=== PATIENT | female | born 1940 | race Caucasian/White ===

== ENCOUNTER 2016-12-22 01:34 | Inpatient (IN) | payer OTHER, BC ==
[~2016-12-22] VITALS: Ht 149.9 cm; Wt 48.5 kg
[2016-12-22] VITALS (16 sets, daily range): BP systolic 139–179; BP diastolic 61–79; PULSE 60–74; TEMP 36.5–36.9; O2SAT 95–99; Ht 149.9 cm; Wt 48.5 kg
--- NOTE | 2016-12-22 02:02 | EMERGENCY ROOM VISIT NOTE ---
History Report prepared by Onel: Shady Hidalgo Under the Supervision of: Sylvia CarmichaelO. First contact with patient: 01:51 Chief Complaint: OTHER COMPLAINT Stated Complaint: LOW HEMOGLOBAN History of Present Illness The patient is a 76 year old female who presents to the Emergency Room with complaints of a low hemoglobin level. The patient has a history of a liver transplant that happened 10 years ago. 1 week ago, she received follow up blood work from a past hospital stay that was 2-3 weeks ago. This hospital stay was for a hemoglobin level of 5.1. She was released with a level of 8.9. The results just came back today from her blood work last week and showed that her level was 6.1 1 week ago. She is currently short of breath, has tightness in her chest, and is lethargic. She denies any fevers. Source of History: patient Onset: 1 week ago Position: other (Abnormal Labs) Symptom Intensity: 6.1 Quality: other (Hemoglobin Level) Timing: other (1 week ago) Associated Symptoms: + chest pain (tightness), + SOB, No fevers Note: She is lethargic. Review of Systems See HPI for pertinent positives and negatives. A total of ten systems were reviewed and were otherwise negative. Past Medical & Surgical Medical Problems: (1) Anemia (2) HLD (hyperlipidemia) (3) HTN (hypertension) (4) Osteoporosis Surgical Problems: (1) Liver transplant failure (2) Liver transplant status Family History Omitted secondary to the patient's age. Social History Smoking Status: Never Smoker Smokeless Tobacco Use: No Alcohol Use: none Drug Use: none Marital Status: single Housing Status: lives alone Occupation Status: retired Current/Historical Medications Scheduled Amlodipine (Norvasc), 10 MG PO DAILY Atorvastatin (Lipitor), 20 MG PO HS Cholecalciferol (Vitamin D3), 2,000 UNITS PO DAILY Everolimus (Immunosuppressant) (Zortress), 1 MG PO BID Ferrous Sulfate (Kp Ferrous Sulfate), 325 MG PO DAILY Metoprolol Tartrate (Lopressor) (Lopressor), 12.5 MG PO BID Oyster Shell (Calcium), 500 MG PO BID Sodium Bicarbonate (Sodium Bicarbonate), 1,300 MG PO TID Allergies Coded Allergies: No Known Allergies (Unverified , 12/22/16) Physical Exam Vital Signs Date Time Temp Pulse Resp B/P (MAP) Pulse Ox O2 Delivery O2 Flow Rate FiO2 12/22/16 02:30 72 12/22/16 02:01 99 Room Air 12/22/16 02:01 Room Air 12/22/16 01:43 36.7 76 18 179/79 99 Room Air Physical Exam GENERAL: Awake, alert, cachectic, in no distress HENT: Normocephalic, atraumatic. Oropharynx unremarkable. EYES: Normal conjunctiva. Sclera non-icteric. NECK: Supple. No nuchal rigidity. FROM. No JVD. RESPIRATORY: Clear to auscultation. CARDIAC: Regular rate, normal rhythm. Extremities warm and well perfused. Pulses equal. ABDOMEN: Soft, non-distended. No tenderness to palpation. No rebound or guarding. No masses. RECTAL: Deferred. MUSCULOSKELETAL: Chest examination reveals no tenderness. The back is symmetrical on inspection without obvious abnormality. There is no CVA tenderness to palpation. No joint edema. LOWER EXTREMITIES: Calves are equal size bilaterally and non-tender. No edema. No discoloration. NEURO: Normal sensorium. No sensory or motor deficits noted. SKIN: No rash or jaundice noted. Medical Decision & Procedures ER Provider Diagnostic Interpretation: Radiology results as stated below per my review: 1 VIEW CHEST X-RAY: Negative for infiltrate, normal mediastinum, no pneumothorax. Per me Laboratory Results 12/22/16 01:58 Red Blood Count 2.26, Mean Corpuscular Volume 85.8, Mean Corpuscular Hemoglobin 28.3, Mean Corpuscular Hemoglobin Concent 33.0, Mean Platelet Volume 10.2, Neutrophils (%) (Auto) 43.1, Lymphocytes (%) (Auto) 42.1, Monocytes (%) (Auto) 7.7, Eosinophils (%) (Auto) 6.2, Basophils (%) (Auto) 0.7, Neutrophils # (Auto) 2.42, Lymphocytes # (Auto) 2.36, Monocytes # (Auto) 0.43, Eosinophils # (Auto) 0.35, Basophils # (Auto) 0.04 12/22/16 01:58 Test 12/22/16 01:58 White Blood Count 5.61 K/uL (4.8-10.8) Red Blood Count 2.26 M/uL (4.2-5.4) Hemoglobin 6.4 g/dL (12.0-16.0) Hematocrit 19.4 % (37-47) Mean Corpuscular Volume 85.8 fL (80-100) Mean Corpuscular Hemoglobin 28.3 pg (25-34) Mean Corpuscular Hemoglobin Concent 33.0 g/dl (32-36) Platelet Count 124 K/uL (130-400) Mean Platelet Volume 10.2 fL (7.4-10.4) Neutrophils (%) (Auto) 43.1 % Lymphocytes (%) (Auto) 42.1 % Monocytes (%) (Auto) 7.7 % Eosinophils (%) (Auto) 6.2 % Basophils (%) (Auto) 0.7 % Neutrophils # (Auto) 2.42 K/uL (1.4-6.5) Lymphocytes # (Auto) 2.36 K/uL (1.2-3.4) Monocytes # (Auto) 0.43 K/uL (0.11-0.59) Eosinophils # (Auto) 0.35 K/uL (0-0.5) Basophils # (Auto) 0.04 K/uL (0-0.2) RDW Standard Deviation 49.2 fL (36.4-46.3) RDW Coefficient of Variation 15.7 % (11.5-14.5) Immature Granulocyte % (Auto) 0.2 % Immature Granulocyte # (Auto) 0.01 K/uL (0.00-0.02) Large Platelets 1+ Ovalocytes 1+ Anion Gap 8.0 mmol/L (3-11) Est Creatinine Clear Calc Drug Dose 8.2 ml/min Estimated GFR () 11.7 Estimated GFR (Non- 10.1 BUN/Creatinine Ratio 17.0 (10-20) Calcium Level 8.8 mg/dl (8.5-10.1) Total Bilirubin 0.6 mg/dl (0.2-1) Direct Bilirubin 0.2 mg/dl (0-0.2) Aspartate Amino Transf (AST/SGOT) 61 U/L (15-37) Alanine Aminotransferase (ALT/SGPT) 57 U/L (12-78) Alkaline Phosphatase 328 U/L (45-117) Total Protein 8.8 gm/dl (6.4-8.2) Albumin 3.3 gm/dl (3.4-5.0) Laboratory results reviewed by me ECG Indication: SOB/dyspnea Rate (beats per minute): 71 Rhythm: normal sinus Findings: no acute ischemic change, other (normal intervals, normal axis) ED Course 0151: The patient was evaluated in room A10. A complete history and physical exam was performed. 0244: Upon reexamination, the patient was resting. I discussed the test results and treatment plan with her. I discussed the case with Dr. Matre of the [facility] Hospitalist service. The patient will be evaluated by him for further management. Medical Decision Differential diagnoses include anemia, renal insufficiency, liver failure, and GI bleed. Patient found to have a hemoglobin less than 7, and renal insufficiency. The case was discussed with the hospitalist for admission. Patient will be admitted for blood transfusion. I have ordered 2 units of blood to be transfused. Medication Reconcilliation Current Medication List: was personally reviewed by me Blood Pressure Screening Patient's blood pressure: Elevated blood pressure Blood pressure disposition: Referred to PCP (Will be monitored as an inpatient) Consults Time Called: 0240 Consulting Physician: Dr. Marte - [facility] Returned Call: [phone] Discussed the patient's case. The patient will be evaluated for further treatment and disposition. Impression Primary Impression: Anemia Additional Impression: Renal insufficiency Scribe Attestation The scribe's documentation has been prepared under my direction and personally reviewed by me in its entirety. I confirm that the note above accurately reflects all work, treatment, procedures, and medical decision making performed by me. Departure Information Dispostion Being Evaluated By Hospitalist Referrals No Doctor, Assigned (PCP) Patient Instructions [facility] Problem Qualifiers
[2016-12-22 02:19] LABS: HEMATOCRIT 19.4 % (37-47); MEAN CELL VOLUME 85.8 fL (80-100); MEAN CORPUSCULAR HEMOGLOBIN 28.3 pg (25-34); MEAN PLATELET VOLUME 10.2 fL (7.4-10.4); PLATELET COUNT 124 K/uL (130-400); RED BLOOD COUNT 2.26 M/uL (4.2-5.4); WHITE BLOOD COUNT 5.61 K/uL (4.8-10.8)
[2016-12-22 02:27] LABS: CALCIUM 8.8 mg/dl (8.5-10.1); CREATININE 4.1 mg/dl (0.60-1.20); POTASSIUM 4.7 mmol/L (3.5-5.1)
[2016-12-22 02:34] LABS: BASO % 0.7 %; BASO ABS # 0.04 K/uL (0-0.2); COMPLETE YES; EOS % 6.2 %; IG% 0.2 %; LARGE PLATELETS 1+; LYMPH % 42.1 %; LYMPH ABS # 2.36 K/uL (1.2-3.4); MONO % 7.7 %; NEUT % 43.1 %; OVALOCYTES 1+
[2016-12-22] MEDS ORDERED: AMLO-114 PO (02:42)
[2016-12-22] MEDS ORDERED: ATOR-54 PO (02:43)
[2016-12-22] MEDS ORDERED: OYST500T47 PO (02:44)
[2016-12-22] MEDS ORDERED: EVER0.25 PO (02:45)
[2016-12-22] MEDS ORDERED: FERR1TAB13 PO (02:48)
[2016-12-22] MEDS ORDERED: SODI650T8 PO (02:49)
[2016-12-22] MEDS ORDERED: CHOL2000 PO (02:52)
[2016-12-22] MEDS ORDERED: METO25TA56 PO (02:53)
[2016-12-22] MEDS ORDERED: ACETAMINOPHEN 325 MG TAB PO PRN (04:45)
[2016-12-22] MEDS ORDERED: CLONIDINE HCL 0.1 MG TAB PO PRN (04:45)
--- NOTE | 2016-12-22 05:44 | History and Physical ---
History & Physical Date & Time of Service: Dec 22, 2016 at 05:23 Chief Complaint: Anemia Primary Care Physician: No Doctor, Assigned History of Present Illness Source: patient, clinic records, hospital records 76 year old female visiting from [place], with history of Liver Transplant on Chronic Immunosuppression, CKD 4, Anemia, HTN, presenting with low hemoglobin. Patient resides in [place] and follows with [facility] for s/p Liver Transplant, CKD 4, and Anemia. She apparently was started on pRBC transfusion since October 2016 and her last one was last month. She had blood work done last week and was called today that her Hg is only 6.1. Patient was advised to go to the ER. She reports few days history of dyspnea, dizziness, and occasional left sided chest "tightness" which all happens at night. Reports black stools but also on FeSO4 supplement but denies hematochezia or any other signs of bleeding. At the ER, patient's hemoglobin was 6.4, and crea 4.1. EKG showed sinus rhythm, with non specific T wave changes in the inferior leads. Cardiac markers pending. On exam, patient seen resting in bed, comfortable, daughter in law Rosita at bedside. Denies active dyspnea, chest pain, dizziness, nausea, bleeding or other symptoms as I am examining her. Occasionally, patient reports food getting "stuck" on her throat with solids Past Medical/Surgical History Medical Problems: (1) Anemia Status: Chronic (2) HLD (hyperlipidemia) Status: Chronic (3) HTN (hypertension) Status: Chronic (4) Osteoporosis Status: Chronic Surgical Problems: (1) Liver transplant failure Status: Resolved (2) Liver transplant status Status: Chronic Social History Smoking Status: Never Smoker Smokeless Tobacco Use: No Drug Use: none Marital Status: single Occupational Status: retired Allergies Coded Allergies: No Known Allergies (Unverified , 12/22/16) Home Medications Scheduled Amlodipine (Norvasc), 10 MG PO DAILY Atorvastatin (Lipitor), 20 MG PO HS Cholecalciferol (Vitamin D3), 2,000 UNITS PO DAILY Everolimus (Immunosuppressant) (Zortress), 1 MG PO BID Ferrous Sulfate (Kp Ferrous Sulfate), 325 MG PO DAILY Metoprolol Tartrate (Lopressor) (Lopressor), 12.5 MG PO BID Oyster Shell (Calcium), 500 MG PO BID Sodium Bicarbonate (Sodium Bicarbonate), 1,300 MG PO TID Review of Systems Constitutional- no fever; no weight loss Eyes- no acute visual changes ENT- no sinus drainage; no pharyngitis Pulmonary- (+) as noted above Cardiac- (+) as noted above GI- no nausea, no vomiting, no diarrhea, no melena, no hematochezia - no dysuria, no hematuria Musculoskeletal- no arthralgias, no myalgias Derm- no rashes, no new skin lesions, no changing skin lesions Hematologic- no unusual bruising, no unusual bleeding Lymphatics- no adenopathy Endocrine- no polyuria or polydipsia; no heat or cold intolerance Neuro- no headaches, no focal neurologic symptoms Psych- no anxiety, no depression Physical Exam Vital Signs Date Time Temp Pulse Resp B/P (MAP) Pulse Ox O2 Delivery O2 Flow Rate FiO2 12/22/16 05:05 36.7 67 16 175/70 95 12/22/16 03:46 74 16 168/76 98 Room Air 12/22/16 02:30 72 12/22/16 02:01 99 Room Air 12/22/16 02:01 Room Air 12/22/16 01:43 36.7 76 18 179/79 99 Room Air General Appearance: WD/WN, no apparent distress Head: normocephalic, atraumatic Eyes: PERRL, EOMI, sclerae normal, + pertinent finding (pale conjunctiva) ENT: normal ENT inspection, hearing grossly normal, pharynx normal Neck: supple, no adenopathy, thyroid normal, no JVD, trachea midline Respiratory/Chest: chest non-tender, lungs clear, normal breath sounds, no respiratory distress, no accessory muscle use Cardiovascular: regular rate, rhythm, no edema, no JVD, no murmur, normal peripheral pulses Abdomen/GI: normal bowel sounds, non tender, soft, no organomegaly, + pertinent finding (surgical scar in the upper quadrants) Back: normal inspection, no CVA tenderness Extremities/Musculoskelatal: normal inspection, no calf tenderness, no pedal edema, normal range of motion, non-tender 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, no motor/sensory deficits, alert, normal mood/affect, oriented x 3 Skin: normal color, warm/dry, no rash Lymphatic: no adenopathy Diagnostics Laboratory Results Results Past 24 Hours Test 12/22/16 01:58 12/22/16 04:39 12/22/16 05:04 Range/Units White Blood Count 5.61 4.8-10.8 K/uL Red Blood Count 2.26 4.2-5.4 M/uL Hemoglobin 6.4 12.0-16.0 g/dL Hematocrit 19.4 37-47 % Mean Corpuscular Volume 85.8 80-100 fL Mean Corpuscular Hemoglobin 28.3 25-34 pg Mean Corpuscular Hemoglobin Concent 33.0 32-36 g/dl Platelet Count 124 130-400 K/uL Mean Platelet Volume 10.2 7.4-10.4 fL Neutrophils (%) (Auto) 43.1 % Lymphocytes (%) (Auto) 42.1 % Monocytes (%) (Auto) 7.7 % Eosinophils (%) (Auto) 6.2 % Basophils (%) (Auto) 0.7 % Neutrophils # (Auto) 2.42 1.4-6.5 K/uL Lymphocytes # (Auto) 2.36 1.2-3.4 K/uL Monocytes # (Auto) 0.43 0.11-0.59 K/uL Eosinophils # (Auto) 0.35 0-0.5 K/uL Basophils # (Auto) 0.04 0-0.2 K/uL RDW Standard Deviation 49.2 36.4-46.3 fL RDW Coefficient of Variation 15.7 11.5-14.5 % Immature Granulocyte % (Auto) 0.2 % Immature Granulocyte # (Auto) 0.01 0.00-0.02 K/uL Large Platelets 1+ Ovalocytes 1+ Sodium Level 140 136-145 mmol/L Potassium Level 4.7 3.5-5.1 mmol/L Chloride Level 111 98-107 mmol/L Carbon Dioxide Level 21 21-32 mmol/L Anion Gap 8.0 3-11 mmol/L Blood Urea Nitrogen 70 7-18 mg/dl Creatinine 4.10 0.60-1.20 mg/dl Est Creatinine Clear Calc Drug Dose 8.2 ml/min Estimated GFR () 11.7 Estimated GFR (Non- 10.1 BUN/Creatinine Ratio 17.0 10-20 Random Glucose 98 70-99 mg/dl Calcium Level 8.8 8.5-10.1 mg/dl Total Bilirubin 0.6 0.2-1 mg/dl Direct Bilirubin 0.2 0-0.2 mg/dl Aspartate Amino Transf (AST/SGOT) 61 15-37 U/L Alanine Aminotransferase (ALT/SGPT) 57 12-78 U/L Alkaline Phosphatase 328 45-117 U/L Total Protein 8.8 6.4-8.2 gm/dl Albumin 3.3 3.4-5.0 gm/dl Creatine Kinase MB Ratio 0-3.0 Diagnostic Radiology CXR possible small right sided effusion, no infiltrates; official read pending EKG HR 71, sinus rhythm, non specific t wave changes lead II Impression Assessment and Plan 76 year old female visiting from [place], with history of Liver Transplant on Chronic Immunosuppression, CKD 4, Anemia, HTN, presenting with low hemoglobin. ANEMIA likely from CKD 4-5, Iron Deficiency - has been requiring intermittent pRBC transfusion since October 2016 - reports melena but on Aspirin - labs drawn 10/2016 ( upon review of records patient brought in) Hg 7.9 crea 3.00, GFR 17 Iron 38, Ferritin 967 - will order 2 units Irradiated pRBC (due to liver transplant status) repeat Hg pending at 8am Anemia panel ordered, including FOBT - Nephrology consulted HYPERTENSION - continue Metoprolol, Amlodipine PRN Clonidine CHEST PAIN - likely from Symptomatic Anemia - r/o ACS - check cardiac markers echo - hold off Aspirin until GI bleed ruled out ACUTE RENAL FAILURE ON CKD 4 - labs drawn 10/2016 ( upon review of records patient brought in) crea 3.00, GFR 17 - now crea 4.1 denies oliguria,nausea, abdominal pain - will consult Nephro S/P LIVER TRANSPLANT 2005, 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 Vee Degroot for PCP and [facility] for s/p Liver Transplant VTE Prophylaxis VTE Risk Assessment Done? Y/N: Yes Risk Level: Moderate Given or contraindicated: SCD's
[2016-12-22 05:51] LABS: CKMB/CK RATIO 1.2 (0-3.0)
[2016-12-22] MEDS ORDERED: FUROSEMIDE INJ 20 MG in SYRINGE 0 ML IV SCH (06:00)
--- NOTE | 2016-12-22 07:24 | DIAGNOSTIC IMAGING REPORT ---
CHEST ONE VIEW PORTABLE CLINICAL HISTORY: Shortness of breath. COMPARISON STUDY: No previous studies for comparison. FINDINGS: There is slight elevation of the right hemidiaphragm. There may be trace bilateral pleural effusions. There is no evidence of pulmonary edema. Mild cardiomegaly is noted. There is no consolidation to suggest pneumonia. IMPRESSION: 1. No evidence of pulmonary edema. 2. Possible trace bilateral pleural effusions. 3. Mild cardiomegaly. Electronically signed by: Milton Calloway M.D. 12/22/2016 7:23 AM Dictated Date/Time: 12/22/2016 7:22 AM
[2016-12-22] MEDS: CALCIUM CARBONATE 1250MG TAB PO SCH ×2 (07:30→22:03)
[2016-12-22] MEDS: AMLODIPINE BESYLATE 5 MG TAB PO SCH (07:30)
[2016-12-22] MEDS: METOPROLOL TARTRATE 25 MG TAB PO SCH ×2 (07:30→20:26)
[2016-12-22] MEDS: SODIUM BICARBONATE 650 MG TAB PO SCH ×3 (07:30→20:29)
[2016-12-22] MEDS: FERROUS SULFATE 325 MG TAB PO SCH (07:30)
[2016-12-22] MEDS: CHOLECALCIFEROL 1000 INTER.UNIT TAB PO SCH (07:31)
[2016-12-22 15:35] LABS: HEMATOCRIT 27.1 % (37-47)
[2016-12-22 16:02] LABS: BLOOD UREA NITROGEN 68 mg/dl (7-18); CALCIUM 8.7 mg/dl (8.5-10.1); CARBON DIOXIDE 21 mmol/L (21-32); CHLORIDE 112 mmol/L (98-107); GLUCOSE 92 mg/dl (70-99); POTASSIUM 4.6 mmol/L (3.5-5.1); SODIUM 141 mmol/L (136-145)
[2016-12-22 16:07] LABS: CKMB/CK RATIO 0.9 (0-3.0); FERRITIN 1716.2 ng/ml (8.0-388.0); TOTAL IRON BINDING CAPACITY 202 mcg/dl (250-450)
--- NOTE | 2016-12-22 17:42 | Progress Note ---
Progress Note Date of Service Dec 22, 2016. Progress Note 76 yo F s/p liver transplant , CKD stage 4 , anemia of chronic disease , presented with symptomatic anemia ~ h b 6.4 associated with WELSH /dizzy spell , palpitation possible anemia of chronic disease due to advanced CKD given 2 units of PRBC hb improved to 9.1 pt feels much better , no WELSH or dizzy spell on standing up or walking repeat labs in AM appreciate input from nephrology
--- NOTE | 2016-12-22 20:01 | NEPHROLOGY CONSULTATION ---
DATE OF CONSULTATION: 12/22/2016 ATTENDING OF RECORD: Dr. Marte. REASON FOR CONSULTATION: DEVEN. HISTORY OF PRESENT ILLNESS: This is a 76-year-old female visiting from [place], [place], who has a history of liver transplant x2 from autoimmune hepatitis, on chronic immunosuppression as well as CKD stage IV. The patient states that she was evaluated by a evening anchor in the past for her anemia and was subsequently referred to hematology for further evaluation. The patient did have a blood transfusion in October of this year. The patient has been getting blood work monthly for [facility] transplant and has been feeling weak, decreased appetite, 5-pound weight loss and was called to go in to the nearest hospital since her hemoglobin level was down to 6.1. The patient's creatinine was 4.1. In the Emergency Room, the patient was given 2 units of leukopoor-irradiated blood. Random urine sodium was 62. Iron sat was 40%. Troponin negative. B12 levels were good. Creatinine is 4.1, on admission it was for 4, later this afternoon after 2 units of blood. The patient is comfortable, eating dinner. No overt signs of edema or shortness of breath. The patient currently on sodium bicarbonate tablets 1300 mg 3 times a day, on oral iron daily. PAST MEDICAL HISTORY: 1. Liver transplant x2, the first one failed followed by [facility] . 2. CKD stage IV. 3. Hyperlipidemia. 4. Hypertension. 5. Osteoporosis. PAST SURGICAL HISTORY: Liver transplant. FAMILY HISTORY: no renal disease in family SOCIAL HISTORY: No smoking, no alcohol, no drugs. Lives alone in [place]. HOME MEDICATIONS: Significant for Norvasc 10 mg a day, Lipitor 20 mg at night, vitamin D 2000 units daily, everolimus 1 mg p.o. b.i.d., Lopressor 12.5 b.i.d., sodium bicarbonate 1300 three times a day. CURRENT MEDICATIONS: Lipitor 20 mg at night, Norvasc 10 mg daily, Lopressor 12.5 p.o. b.i.d., Os-Servando 1250 p.o. b.i.d., sodium bicarbonate 1300 3 times a day, vitamin D 2000 units daily, iron 325 daily. REVIEW OF SYSTEMS: Positive 5-pound weight loss. Positive fatigue. No fevers or chills. No headaches, no shortness of breath, no chest pain. No nausea or vomiting. Positive anorexia. No taste to foods. No unusual bruising. Urination has been noticed to be decreased. All other review of systems otherwise negative. PHYSICAL EXAMINATION: VITAL SIGNS: Temperature 36.8, pulse 68, respiratory rate 16, blood pressure 154/69, satting 99% on room air. GENERAL: Awake, alert, oriented x3. EYES: No scleral icterus. HEENT: Mucous membranes are moist. NECK: Supple. PULMONARY: Clear to auscultation. CARDIAC: Regular rate and rhythm. ABDOMEN: Bowel sounds positive, soft, nontender, nondistended. EXTREMITIES: No clubbing, cyanosis or edema. NEUROLOGICALLY: Nonfocal. DERMATOLOGIC: No rash or ulcers noted. LABORATORIES: White count is 5. H&H 9.1 and 27.1, platelet count is 124. Random urine sodium was 62. Sodium is 141, potassium 4.6, chloride is 112, bicarbonate is 21, BUN is 68, creatinine is 4, and random glucose 92. Uric acid 7.3, iron sat 40%. Troponin negative. B12 1462. Albumin is 3.3. IMAGING DATA: Chest x-ray shows no evidence of pulmonary edema, possible trace bilateral pleural effusions, mild cardiomegaly. Creatinine from October of 2016 was 3. IMPRESSION AND PLAN: 1. Acute kidney injury on chronic kidney disease stage IV with a creatinine of 4.1 with a previous creatinine from October. Will contact [facility] on Sunday for more labs to follow trend. This could be a natural progression of chronic kidney disease and becoming close to needing to start dialysis or this could be acute tubular necrosis like episode with a creatinine that has temporarily worsened in the setting of significant anemia. For now, no indication for emergent dialysis. We will see if the creatinine is starting to improve tomorrow. Would hold on IV fluids at this time. 2. Anemia, question etiology. The patient appears to have anemia from chronic kidney disease, given the iron sats are good with no signs of active bleeding. Could benefit from Procrit administration to keep the hemoglobin levels stable. Will follow labs as an outpatient and if indeed does require Procrit, will get set up as an outpatient. No prior history of cancers. 3. Hypertension. Blood pressure is good and currently on metoprolol 12.5 mg p.o. b.i.d. and Norvasc 10 mg a day. 4. Acidosis. Bicarb levels are good at 21 and on sodium bicarbonate tablets 1300 mg 3 times a day. The patient likely with significant chronic kidney disease from immunosuppression, since patient is already on sodium bicarbonate tablets, probably suffers from significant chronic kidney disease, question though what her true baseline kidney function is and is this acute kidney injury or natural progression of chronic kidney disease. We will try to obtain further lab work on Sunday. If the patient's hemoglobin levels are stable tomorrow, okay from a renal perspective to go home tomorrow with close follow up with me as an outpatient, and I will try to obtain further records. I appreciate the consultation. NOELLE
[2016-12-22] MEDS: EVEROLIMUS 0.5 MG PO SCH (20:24)
[2016-12-22] MEDS ORDERED: ATORVASTATIN 20 MG TAB PO SCH (21:00)
--- NOTE | 2016-12-22 21:32 | DIAGNOSTIC IMAGING REPORT ---
(RENAL)RETROPERITONEA COMP HISTORY: Renal insufficiency Rosa on ck. stage 4 ; R/o obstruction COMPARISON: None. FINDINGS: Right kidney: Maximum dimension 9.5 cm. No evidence for hydronephrosis. Increased cortical echogenicity Left kidney: Maximum dimension 9.8 cm. No evidence for hydronephrosis. Increased cortical echogenicity Bladder: No bladder wall thickening. The bilateral ureteral jets were identified. IMPRESSION: Findings consistent with nonobstructive renal insufficiency. No evidence for hydronephrosis. The above report was generated using voice recognition software. It may contain grammatical, syntax or spelling errors. Electronically signed by: Zachery Vazquez M.D. 12/22/2016 9:31 PM Dictated Date/Time: 12/22/2016 9:29 PM
[2016-12-23 04:05] VITALS: BP 120/64; PULSE 67; TEMP 37; O2SAT 94
[2016-12-23 06:11] LABS: BUN/CREATININE RATIO 17.3 (10-20); CALCIUM 8.3 mg/dl (8.5-10.1); CREATININE 4.1 mg/dl (0.60-1.20); POTASSIUM 4.3 mmol/L (3.5-5.1)
[2016-12-23 06:47] LABS: BASO % 0.7 %; BASO ABS # 0.03 K/uL (0-0.2); EOS % 7.7 %; HEMATOCRIT 26.8 % (37-47); IG% 0.2 %; LYMPH % 42.2 %; LYMPH ABS # 1.86 K/uL (1.2-3.4); MEAN CORPUSCULAR HEMOGLOBIN 27.2 pg (25-34); MEAN PLATELET VOLUME 10.9 fL (7.4-10.4); MONO % 8.6 %; NEUT % 40.6 %; PLATELET COUNT 103 K/uL (130-400); RED BLOOD COUNT 3.27 M/uL (4.2-5.4); WHITE BLOOD COUNT 4.41 K/uL (4.8-10.8)
[2016-12-23 07:15] LABS: MEAN CORPUSCULAR HGB CONC 33.2 g/dl (32-36)
[2016-12-23 07:57] LABS: COMPLETE YES
[2016-12-23 08:01] VITALS: BP 151/65; PULSE 60; TEMP 36.6; O2SAT 96
[2016-12-23] MEDS: EVEROLIMUS 0.5 MG PO SCH (09:00)
[2016-12-23] MEDS: METOPROLOL TARTRATE 25 MG TAB PO SCH (10:30)
[2016-12-23] MEDS: CHOLECALCIFEROL 1000 INTER.UNIT TAB PO SCH (10:31)
[2016-12-23] MEDS: SODIUM BICARBONATE 650 MG TAB PO SCH ×2 (10:31→12:36)
--- NOTE | 2016-12-23 10:33 | Discharge Instructions ---
Discharge Instructions Date of Service Dec 23, 2016. Admission Reason for Admission: Anemia Discharge Discharge Diagnosis / Problem: ANEMIA OF CHRONIC DISEASE /CKD STAGE 4 Discharge Goals Goal(s): Decrease discomfort, Improve disease control, Diagnostic testing Activity Recommendations Activity Limitations: resume your previous activity . Instructions / Follow-Up Instructions / Follow-Up FOLLOW UP WITH NEPHROLOGY DR CHRISTENSEN NEXT WEEK , OFFICE WILL CALL WITH APPOINTMENT Current Hospital Diet Patient's current hospital diet: Renal Diet, AHA Diet (Heart Healthy) Discharge Diet Recommended Diet: AHA Diet (Heart Healthy), Renal Diet Pending Studies Studies pending at discharge: yes List of pending studies: COMPLETE BLOOD COUNT , BASIC METABOLIC PANEL ON NEXT OFFICE VISIT WITH DR CHRISTENSEN Medical Emergencies . Who to Call and When: Medical Emergencies: If at any time you feel your situation is an emergency, please call 911 immediately. . Non-Emergent Contact Non-Emergency issues call your: Primary Care Provider . . "Provider Documentation" section prepared by Jina Espinoza. . VTE Core Measure Inpt VTE Proph given/why not?: SCD's
--- NOTE | 2016-12-23 10:35 | Nephrology Progress Note ---
Nephrology Progress Note Date of Service: Dec 23, 2016. Subjective 76 yo female with liver transplant x 2 from autoimmune hepatitis on everolimus and has recurrent anemia, s/p blood transfusion. pt not uremic. creatinine not improving and is 4. still though with element of decreased appetite. no n/v. no itching, no fatigue. urinating well. no sob. Objective Date Time Temp Pulse Resp B/P (MAP) Pulse Ox O2 Delivery O2 Flow Rate FiO2 12/23/16 08:01 36.6 60 17 151/65 (93) 96 Room Air 12/23/16 04:05 37.0 67 16 120/64 (82) 94 12/23/16 04:00 Room Air 12/23/16 00:01 Room Air 12/22/16 23:09 36.8 65 16 146/79 (101) 96 12/22/16 20:00 Room Air 12/22/16 19:28 36.8 66 18 168/71 (103) 95 Room Air 12/22/16 16:01 Room Air 12/22/16 15:24 36.8 68 16 154/69 (97) 99 Room Air 12/22/16 13:45 36.7 66 18 162/77 96 12/22/16 12:45 36.6 66 18 162/77 95 12/22/16 12:42 Room Air 12/22/16 12:15 36.8 63 18 155/72 96 12/22/16 11:45 36.8 60 18 148/61 12/22/16 11:30 36.7 62 18 145/71 12/22/16 11:15 36.6 68 18 139/61 96 Physical Exam: General-aaox3 Eyes-no scleral icterus ENT-mmm Neck-supple Lungs-cta Heart-rrr Abdomen-bs+ s/nt/nd Extremities-no c/c/e Neuro-nonfocal Current Inpatient Medications Medications (Trade) Dose Ordered Sig/Robert Route Start Time Stop Time Status Last Admin Dose Admin Clonidine HCl (Catapres Tab) 0.1 mg Q6H PRN PO 12/22/16 04:45 01/21/17 04:44 Acetaminophen (Tylenol Tab) 650 mg Q4H PRN PO 12/22/16 04:45 01/21/17 04:44 Amlodipine Besylate (Norvasc Tab) 10 mg DAILY PO 12/22/16 09:00 01/21/17 08:59 12/22/16 07:30 10 MG Atorvastatin Calcium (Lipitor Tab) 20 mg HS PO 12/22/16 21:00 01/21/17 20:59 12/22/16 22:03 20 MG Metoprolol Tartrate (Lopressor Tab) 12.5 mg BID PO 12/22/16 09:00 01/21/17 08:59 12/22/16 20:26 12.5 MG Calcium Carbonate (oS-Servando 500 TAB) 1,250 mg BID PO 12/22/16 09:00 01/21/17 08:59 12/22/16 22:03 1,250 MG Sodium Bicarbonate (Sodium Bicarbonate Tab) 1,300 mg TID PO 12/22/16 09:00 01/21/17 08:59 12/22/16 20:29 1,300 MG Cholecalciferol (Vitamin D Tab) 2,000 inter.unit DAILY PO 12/22/16 09:00 01/21/17 08:59 12/22/16 07:31 2,000 INTER.UNIT Ferrous Sulfate (Feosol Tab) 325 mg DAILY PO 12/22/16 09:00 01/21/17 08:59 12/22/16 07:30 325 MG Non-Formulary Medication (Non-Formulary Patient'S Own Med) 2 ea BID PO 12/22/16 21:00 01/21/17 20:59 12/22/16 20:24 2 EA Last 24 Hours Test 12/22/16 10:39 12/22/16 15:22 12/23/16 05:29 12/23/16 06:37 Creatine Kinase MB Ratio 0.9 Hemoglobin 9.1 g/dL 8.9 g/dL Hematocrit 27.1 % 26.8 % Sodium Level 141 mmol/L 140 mmol/L Potassium Level 4.6 mmol/L 4.3 mmol/L Chloride Level 112 mmol/L 113 mmol/L Carbon Dioxide Level 21 mmol/L 20 mmol/L Anion Gap 8.0 mmol/L 7.0 mmol/L Blood Urea Nitrogen 68 mg/dl 71 mg/dl Creatinine 4.00 mg/dl 4.10 mg/dl Est Creatinine Clear Calc Drug Dose 8.4 ml/min 8.2 ml/min Estimated GFR () 12.0 11.7 Estimated GFR (Non- 10.4 10.1 BUN/Creatinine Ratio 17.0 17.3 Random Glucose 92 mg/dl 80 mg/dl Uric Acid 7.3 mg/dl Calcium Level 8.7 mg/dl 8.3 mg/dl Iron Level 92 mcg/dl Total Iron Binding Capacity 202 mcg/dl Transferrin 166 mg/dl Transferrin % Saturation 40 % Ferritin 1716.2 ng/ml Total Creatine Kinase 182 U/L Creatine Kinase MB 1.7 ng/ml Troponin I < 0.015 ng/ml Vitamin B12 Level 1462 pg/mL Folate > 24.00 ng/mL White Blood Count 4.41 K/uL Red Blood Count 3.27 M/uL Mean Corpuscular Volume 82.0 fL Mean Corpuscular Hemoglobin 27.2 pg Mean Corpuscular Hemoglobin Concent 33.2 g/dl Platelet Count 103 K/uL Mean Platelet Volume 10.9 fL Neutrophils (%) (Auto) 40.6 % Lymphocytes (%) (Auto) 42.2 % Monocytes (%) (Auto) 8.6 % Eosinophils (%) (Auto) 7.7 % Basophils (%) (Auto) 0.7 % Neutrophils # (Auto) 1.79 K/uL Lymphocytes # (Auto) 1.86 K/uL Monocytes # (Auto) 0.38 K/uL Eosinophils # (Auto) 0.34 K/uL Basophils # (Auto) 0.03 K/uL RDW Standard Deviation 48.0 fL RDW Coefficient of Variation 15.9 % Immature Granulocyte % (Auto) 0.2 % Immature Granulocyte # (Auto) 0.01 K/uL Red Blood Cell Morphology Unremarkable Assessment & Plan CKD stage 5-creatinine appears to have progressed to 4 and not improving while in the hospital. was 3 in October. will contact her pcp office and transplant office on sunday to try to get more records. may be close to needing to start dialysis although at this time not uremic. Anemia-likely from anemia from renal failure and will recheck labs as outpt and start process for qualifying for procrit. will follow up in my office soon and have repeat lab work next week through my office.
[2016-12-23 11:58] VITALS: BP 152/67; PULSE 63; TEMP 36.5; O2SAT 97
[2016-12-23] MEDS: CALCIUM CARBONATE 1250MG TAB PO SCH (12:11)
--- NOTE | 2016-12-23 12:31 | Progress Note ---
Internal Med Progress Note Date of Service: Dec 23, 2016. Provider Documentation: SUBJECTIVE: no complain of lightheadedness , no dizzy spell energy is fair denies of SOB or WELSH OBJECTIVE: Vital Signs-as noted below Exam: General-frail appearing elderly lady , no apparent distress Eyes-sclera non icteric Neck-NAD Lungs-CTA ,no wheeze or rales Heart-regular S1/S2 Abdomen-soft, non tender Extremities-no lower ext edema, no rash or deformity Neuro-AAO x3, no focal deficit Lab data as noted below. ASSESSMENT & PLAN: 76 year old female visiting from [place], with history of Liver Transplant on Chronic Immunosuppression, CKD 4, Anemia, HTN, presented with symptomatic anemia ANEMIA likely from CKD 4-5, Iron Deficiency - has been requiring intermittent pRBC transfusion since October 2016 - labs drawn 10/2016 ( upon review of records patient brought in) Hg 7.9 crea 3.00, GFR 17 Iron 38, Ferritin 967 - s/p 2 units Irradiated pRBC (due to liver transplant status) Hb improved 9.1 ->remains stable 8.9 symptoms of SOB , WELSH has markedly improved post transfusion appreciate input form Nephrology pt is stable to be discharged will be seen at Dr Lau 's office early next, repeat Blood work next week per nephrology may benefit with Procrit , Nephrology office will arrange after follow up HYPERTENSION - continue Metoprolol, Amlodipine DYSPHAGIA - patient reports food getting "stuck" on her throat with solids - speech therapy eval appreciated no sign of overt aspiration or swallowing difficulty noted on bed side eval recommend dental cut -soft /slippery diet aspiration precaution CHEST PAIN - likely from Symptomatic Anemia symptom has resolved after correction of anemia with PRBC transfusion echo; shows no wall motion abnormality no further cardiac work up needed ACUTE RENAL FAILURE ON CKD 4-5 - labs drawn 10/2016 ( upon review of records patient brought in) crea 3.00, GFR 17 -Cr remains elevated ~4 appreciate input form Nephrology , out pt follow up in office will have repeat blood work checked S/P LIVER TRANSPLANT 2005, 2006 - for autoimmune hepatitis - follows with [facility] - on Zintress DVT PROPHYLAXIS SCDs FULL CODE PER PATIENT DISPOSITION stable to be discharge home today Update given to son present at bedside pt will be followed by Dr Lau in office next week per son eventually pt will transition her care to [place] Vital Signs: Date Time Temp Pulse Resp B/P (MAP) Pulse Ox O2 Delivery O2 Flow Rate FiO2 12/23/16 15:18 36.5 63 18 97 Room Air 12/23/16 12:00 Room Air 12/23/16 11:58 36.5 63 18 152/67 (95) 97 Room Air 12/23/16 08:30 Room Air 12/23/16 08:01 36.6 60 17 151/65 (93) 96 Room Air 12/23/16 04:05 37.0 67 16 120/64 (82) 94 12/23/16 04:00 Room Air 12/23/16 00:01 Room Air 12/22/16 23:09 36.8 65 16 146/79 (101) 96 12/22/16 20:00 Room Air 12/22/16 19:28 36.8 66 18 168/71 (103) 95 Room Air Lab Results: Results Past 24 Hours Test 12/23/16 05:29 12/23/16 06:37 Range/Units Sodium Level 140 136-145 mmol/L Potassium Level 4.3 3.5-5.1 mmol/L Chloride Level 113 98-107 mmol/L Carbon Dioxide Level 20 21-32 mmol/L Anion Gap 7.0 3-11 mmol/L Blood Urea Nitrogen 71 7-18 mg/dl Creatinine 4.10 0.60-1.20 mg/dl Est Creatinine Clear Calc Drug Dose 8.2 ml/min Estimated GFR () 11.7 Estimated GFR (Non- 10.1 BUN/Creatinine Ratio 17.3 10-20 Random Glucose 80 70-99 mg/dl Calcium Level 8.3 8.5-10.1 mg/dl White Blood Count 4.41 4.8-10.8 K/uL Red Blood Count 3.27 4.2-5.4 M/uL Hemoglobin 8.9 12.0-16.0 g/dL Hematocrit 26.8 37-47 % Mean Corpuscular Volume 82.0 80-100 fL Mean Corpuscular Hemoglobin 27.2 25-34 pg Mean Corpuscular Hemoglobin Concent 33.2 32-36 g/dl Platelet Count 103 130-400 K/uL Mean Platelet Volume 10.9 7.4-10.4 fL Neutrophils (%) (Auto) 40.6 % Lymphocytes (%) (Auto) 42.2 % Monocytes (%) (Auto) 8.6 % Eosinophils (%) (Auto) 7.7 % Basophils (%) (Auto) 0.7 % Neutrophils # (Auto) 1.79 1.4-6.5 K/uL Lymphocytes # (Auto) 1.86 1.2-3.4 K/uL Monocytes # (Auto) 0.38 0.11-0.59 K/uL Eosinophils # (Auto) 0.34 0-0.5 K/uL Basophils # (Auto) 0.03 0-0.2 K/uL RDW Standard Deviation 48.0 36.4-46.3 fL RDW Coefficient of Variation 15.9 11.5-14.5 % Immature Granulocyte % (Auto) 0.2 % Immature Granulocyte # (Auto) 0.01 0.00-0.02 K/uL Red Blood Cell Morphology Unremarkable
--- NOTE | 2016-12-23 12:32 | Discharge Summary ---
Discharge Summary Date of Service Dec 23, 2016. Discharge Summary Admission Date: Dec 22, 2016 at 03:49 Discharge Date: Dec 23, 2016 Discharge Disposition: Home Principal Diagnosis: ANEMIA OF CHRONIC DISEASE /CKD STAGE 4 Procedures: RENAL ULTRASOUND : IMPRESSION: Findings consistent with nonobstructive renal insufficiency. No evidence for hydronephrosis. CHEST XRAY : IMPRESSION: 1. No evidence of pulmonary edema. 2. Possible trace bilateral pleural effusions. 3. Mild cardiomegaly. ECHO : 1. Normal LV size. Mild concentric LVH. * 2. Normal LV systolic function. LVEF 55-60%. No regional wall motion abnormalities. Grade I diastolic dyfunction. * 3. Normal RV size and function. * 4. Mild mitral regurgitation. * 5. Normal estimated RA and PA pressures. * 6. No prior studies for comparison. Consultations: NEPHROLOGY DR LAU Medication Reconciliation Continued Medications: Amlodipine (Norvasc) 10 Mg Tab 10 MG PO DAILY, TAB Atorvastatin (Lipitor) 20 Mg Tab 20 MG PO HS, TAB Cholecalciferol (Vitamin D3) 2,000 Unit Cap 2000 UNITS PO DAILY, CAP Everolimus (Immunosuppressant) (Zortress) 0.25 Mg Tab 1 MG PO BID BEGIN 12/07/16 : TAKE 4 TABLETS (1 MG TOTAL) TWICE DAILY FOR 30 DAYS. Ferrous Sulfate (Kp Ferrous Sulfate) 325 Mg Tab 325 MG PO DAILY, TAB Metoprolol Tartrate (Lopressor) (Lopressor) 25 Mg Tab 12.5 MG PO BID, TAB Oyster Shell (Calcium) 500 Mg Tab 500 MG PO BID Sodium Bicarbonate (Sodium Bicarbonate) 650 Mg Tab 1300 MG PO TID TAKE 2 TABLETS THREE TIMES DAILY. Referrals At Discharge Follow up Referrals: Physician Referral - Please Call For Appointment with Kylee Lau I., DO Admission Information HPI (per Admitting provider): 76 year old female visiting from [place], with history of Liver Transplant on Chronic Immunosuppression, CKD 4, Anemia, HTN, presenting with low hemoglobin. Patient resides in [place] and follows with [facility] for s/p Liver Transplant, CKD 4, and Anemia. She apparently was started on pRBC transfusion since October 2016 and her last one was last month. She had blood work done last week and was called today that her Hg is only 6.1. Patient was advised to go to the ER. She reports few days history of dyspnea, dizziness, and occasional left sided chest "tightness" which all happens at night. Reports black stools but also on FeSO4 supplement but denies hematochezia or any other signs of bleeding. At the ER, patient's hemoglobin was 6.4, and crea 4.1. EKG showed sinus rhythm, with non specific T wave changes in the inferior leads. Cardiac markers pending. On exam, patient seen resting in bed, comfortable, daughter in law Rosita at bedside. Denies active dyspnea, chest pain, dizziness, nausea, bleeding or other symptoms as I am examining her. Occasionally, patient reports food getting "stuck" on her throat with solids Physical Exam (per Admitting): General Appearance: WD/WN, no apparent distress Head: normocephalic, atraumatic Eyes: PERRL, EOMI, sclerae normal, + pertinent finding (pale conjunctiva) ENT: normal ENT inspection, hearing grossly normal, pharynx normal Neck: supple, no adenopathy, thyroid normal, no JVD, trachea midline Respiratory/Chest: chest non-tender, lungs clear, normal breath sounds, no respiratory distress, no accessory muscle use Cardiovascular: regular rate, rhythm, no edema, no JVD, no murmur, normal peripheral pulses Abdomen/GI: normal bowel sounds, non tender, soft, no organomegaly, + pertinent finding (surgical scar in the upper quadrants) Back: normal inspection, no CVA tenderness Extremities/Musculoskelatal: normal inspection, no calf tenderness, no pedal edema, normal range of motion, non-tender Neurologic/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: 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, no motor/sensory deficits, alert , normal mood/affect, oriented x 3 Skin: normal color, warm/dry, no rash Lymphatic: no adenopathy Hospital Course 76 year old female visiting from [place], with history of Liver Transplant on Chronic Immunosuppression, CKD 4, Anemia, HTN, presented with symptomatic anemia ANEMIA likely from CKD 4-5, Iron Deficiency - has been requiring intermittent pRBC transfusion since October 2016 - labs drawn 10/2016 ( upon review of records patient brought in) Hg 7.9 crea 3.00, GFR 17 Iron 38, Ferritin 967 - s/p 2 units Irradiated pRBC (due to liver transplant status) Hb improved 9.1 ->remains stable 8.9 symptoms of SOB , WELSH has markedly improved post transfusion appreciate input form Nephrology pt is stable to be discharged will be seen at Dr Lau 's office early next, repeat Blood work next week per nephrology may benefit with Procrit , Nephrology office will arrange after follow up HYPERTENSION - continue Metoprolol, Amlodipine DYSPHAGIA - patient reports food getting "stuck" on her throat with solids - speech therapy eval appreciated no sign of overt aspiration or swallowing difficulty noted on bed side eval recommend dental cut -soft /slippery diet aspiration precaution CHEST PAIN - likely from Symptomatic Anemia symptom has resolved after correction of anemia with PRBC transfusion echo; shows no wall motion abnormality no further cardiac work up needed ACUTE RENAL FAILURE ON CKD 4-5 - labs drawn 10/2016 ( upon review of records patient brought in) crea 3.00, GFR 17 -Cr remains elevated ~4 appreciate input form Nephrology , out pt follow up in office will have repeat blood work checked S/P LIVER TRANSPLANT 2005, 2006 - for autoimmune hepatitis - follows with [facility] - on Zintress DVT PROPHYLAXIS SCDs FULL CODE PER PATIENT DISPOSITION stable to be discharge home today Update given to son present at bedside pt will be followed by Dr Lau in office next week per son eventually pt will transition her care to [place] Total time spent on discharge = 35 mins This includes examination of the patient, discharge planning, medication reconciliation, and communication with other providers. Discharge Instructions Discharge Instructions Date of Service Dec 23, 2016. Admission Reason for Admission: Anemia Discharge Discharge Diagnosis / Problem: ANEMIA OF CHRONIC DISEASE /CKD STAGE 4 Discharge Goals Goal(s): Decrease discomfort, Improve disease control, Diagnostic testing Activity Recommendations Activity Limitations: resume your previous activity . Instructions / Follow-Up Instructions / Follow-Up FOLLOW UP WITH NEPHROLOGY DR LAU NEXT WEEK , OFFICE WILL CALL WITH APPOINTMENT Current Hospital Diet Patient's current hospital diet: Renal Diet, AHA Diet (Heart Healthy) Discharge Diet Recommended Diet: AHA Diet (Heart Healthy), Renal Diet Pending Studies Studies pending at discharge: yes List of pending studies: COMPLETE BLOOD COUNT , BASIC METABOLIC PANEL ON NEXT OFFICE VISIT WITH DR LAU Medical Emergencies . Who to Call and When: Medical Emergencies: If at any time you feel your situation is an emergency, please call 911 immediately. . Non-Emergent Contact Non-Emergency issues call your: Primary Care Provider . . "Provider Documentation" section prepared by Jina H. Alexis. . VTE Core Measure Inpt VTE Proph given/why not?: SCD's Additional Copies To Kylee Lau I., DO
[2016-12-23] MEDS: FERROUS SULFATE 325 MG TAB PO SCH (12:35)
[2016-12-23] MEDS: AMLODIPINE BESYLATE 5 MG TAB PO SCH (12:35)
--- NOTE | 2016-12-23 12:40 | ECHOCARDIOGRAM REPORT ---
*NOTICE TO RECEIVING [employer] This information is strictly Confidential and protected under [place] law. [place] law prohibits you from making any further disclosure of this information unless further disclosure is expressly permitted by the written consent of the person to whom it pertains or is authorized by law. A general authorization for the release of medical or other information is not sufficient for this purpose. Hospital accepts no responsibility if the information is made available to any other person, INCLUDING THE PATIENT. Interpretation Summary * Name: YARELI POE Study Date: 12/23/2016 06:52 AM * Patient Location: C.2T\S\E218\S\1 HR: 60 * : 1940 (M/d/yyyy) Gender: Female Height: 59 in * Age: 76 yrs Ethnicity: CA Weight: 107 lb * Ordering Physician: Tucker Marte * Referring Physician: Self, Referred * Performed By: Terrie Cordero RCS * * Reason For Study: Chest pain * BSA: 1.4 m2 * -- Conclusions -- * 1. Normal LV size. Mild concentric LVH. * 2. Normal LV systolic function. LVEF 55-60%. No regional wall motion abnormalities. Grade I diastolic dyfunction. * 3. Normal RV size and function. * 4. Mild mitral regurgitation. * 5. Normal estimated RA and PA pressures. * 6. No prior studies for comparison. Procedure Details * Left Ventricle The left ventricle is grossly normal size. There is mild concentric left ventricular hypertrophy. Ejection Fraction = 55-60%. No regional wall motion abnormalities noted. * Right Ventricle The right ventricle is grossly normal size. The right ventricular systolic function is normal as assessed by tricuspid annular plane systolic excursion (TAPSE) (normal >1.5 cm). * Atria Borderline left atrial enlargement. Right atrial size is normal. No ASD detected; PFO is not assessed. * Mitral Valve The mitral valve is grossly normal. Mitral stenosis is absent. There is mild mitral regurgitation. * Tricuspid Valve The tricuspid valve is not well visualized, but is grossly normal. There is trace tricuspid regurgitation. * Aortic Valve The aortic valve opens well. The aortic valve is trileaflet. No hemodynamically significant valvular aortic stenosis. There is no significant aortic regurgitation. * Pulmonic Valve The pulmonary valve is inadequately visualized, but the Doppler data is adequate for interpretation. Pulmonic stenosis is absent. Mild pulmonic valvular regurgitation. * Great Vessels The aortic root and proximal ascending aorta are normal sized. * Pericardium/Pleural There is no pericardial effusion. * Great Vessels Normal inferior vena cava size and collapsability with sniff indicates a normal right atrial pressure of 3 mmHg * Left Ventricular Diastolic Function Grade I diastolic dysfunction, (abnormal relaxation pattern). * * MMode 2D Measurements and Calculations * IVSd 1.2 cm * * LVIDd 4.5 cm * LVIDs 3.1 cm * LVPWd 1.3 cm * * IVS/LVPW 0.92 * FS 31.1 % * EDV(Teich) 91.7 ml * ESV(Teich) 37.6 ml * EF(Teich) 59.0 % * * EDV(cubed) 90.2 ml * ESV(cubed) 29.5 ml * EF(cubed) 67.3 % * * LV mass(C)d 199.1 grams * LV mass(C)dI 140.8 grams/m\S\2 * * SV(Teich) 54.1 ml * SI(Teich) 38.3 ml/m\S\2 * SV(cubed) 60.7 ml * SI(cubed) 43.0 ml/m\S\2 * * Ao root diam 2.7 cm * Ao root area 5.6 cm\S\2 * * LVOT diam 1.9 cm * LVOT area 2.8 cm\S\2 * * LVAd ap4 27.6 cm\S\2 * LVLd ap4 7.8 cm * EDV(MOD-sp4) 80.6 ml * EDV(sp4-el) 83.3 ml * LVAs ap4 17.1 cm\S\2 * LVLs ap4 6.9 cm * ESV(MOD-sp4) 34.9 ml * ESV(sp4-el) 35.9 ml * EF(MOD-sp4) 56.7 % * EF(sp4-el) 56.9 % * * LVAd ap2 27.1 cm\S\2 * LVLd ap2 7.9 cm * EDV(MOD-sp2) 77.6 ml * EDV(sp2-el) 78.9 ml * LVAs ap2 13.5 cm\S\2 * LVLs ap2 6.3 cm * ESV(MOD-sp2) 23.8 ml * ESV(sp2-el) 24.4 ml * EF(MOD-sp2) 69.4 % * EF(sp2-el) 69.1 % * * LVLd %diff 2.0 % * EDV(MOD-bp) 80.1 ml * LVLs %diff -9.62 % * ESV(MOD-bp) 30.1 ml * EF(MOD-bp) 62.4 % * * SV(MOD-sp4) 45.7 ml * SI(MOD-sp4) 32.3 ml/m\S\2 * * SV(MOD-sp2) 53.8 ml * SI(MOD-sp2) 38.1 ml/m\S\2 * * SV(MOD-bp) 50.0 ml * SI(MOD-bp) 35.4 ml/m\S\2 * * SV(sp4-el) 47.4 ml * SI(sp4-el) 33.5 ml/m\S\2 * * SV(sp2-el) 54.5 ml * SI(sp2-el) 38.6 ml/m\S\2 * * * Doppler Measurements and Calculations * MV E max joanne 62.0 cm/sec * MV A max joanne 106.8 cm/sec * * MV E/A 0.58 * * Ao V2 max 138.5 cm/sec * Ao max PG 7.7 mmHg * Ao max PG (full) 3.2 mmHg * PETER(V,A) 2.2 cm\S\2 * PETER(V,D) 2.2 cm\S\2 * * LV V1 max PG 4.5 mmHg * * LV V1 max 106.2 cm/sec * * PI end-d joanne 111.1 cm/sec * * TR max joanne 219.1 cm/sec * * *
[2016-12-23 15:18] VITALS: BP 152/67; PULSE 63; TEMP 36.5; O2SAT 97
[2017-01-22] MEDS ORDERED: EPOE40007 SC (18:28)
[2017-01-22] MEDS ORDERED: APR10 PO (18:28)
[2017-01-22] MEDS ORDERED: AZIT500T PO (18:28)
[2017-01-22] MEDS ORDERED: AMLO10TA2 PO (18:40)
== END 2016-12-23 15:19 | disposition home or self-care (01) | DRG 812 ==
LOC: C.EDB 01:36 → C.2T 03:49 → ENRESERV 04:12
PROVIDERS: ADMIT Internal Medicine; ATTEND Hospitalist
DX: D63.1 Anemia in chronic kidney disease (principal); N18.4 Chronic kidney disease, stage 4 (severe); N17.9 Acute kidney failure, unspecified; Z94.4 Liver transplant status; D50.9 Iron deficiency anemia, unspecified; I10 Essential (primary) hypertension; R13.10 Dysphagia, unspecified; R07.89 Other chest pain

== ENCOUNTER 2017-01-19 22:40 | Observation (INO) | payer OTHER, BC ==
[~2017-01-19] VITALS: Ht 149.9 cm; Wt 47.5 kg
[~2017-01-19 22:40] MED LIST: AMLO-114 PO; ATOR-54 PO; CHOL2000 PO; EVER0.25 PO; FERR1TAB13 PO; METO25TA56 PO; OYST500T47 PO; SODI650T8 PO
[2017-01-19] MEDS ORDERED: MULT-506 PO (22:59)
[2017-01-19] MEDS ORDERED: CALC200T PO (23:00)
[2017-01-19] MEDS ORDERED: BYS/5 PO (23:02)
--- NOTE | 2017-01-19 23:06 | EMERGENCY ROOM VISIT NOTE ---
History Report prepared by Onel: Tiana Spencer Under the Supervision of: Dr. Sujit Scherer M.D. First contact with patient: 22:59 Chief Complaint: REFERRED BY DOCTOR Stated Complaint: KIDNEY History of Present Illness The patient is a 76 year old female who presents to the Emergency Room with complaints of abnormal labs today. The patient states that she was referred by her doctor because of kidney problems. The patient also reports having right upper back pain. She also reports having a loss of appetite. The patient states that she is still urinating, but not as frequently. The patient denies having weakness. Per her family, the patient was admitted in the ED 3 weeks ago for the same symptoms. Per nursing staff, the patient had all of her labs done in [place]. When she was told her results, her family drove her from [place] to the ED here, instead of going to an ED in [place]. The patient had a liver transplant in 2005 and follows at [facility] for her liver transplant. She is on an anti-rejection medication. Source of History: patient, family, nursing staff Onset: today Position: other (global) Quality: other (abnormal labs) Associated Symptoms: + back pain (right upper ), No weakness Note: additional symptom: loss of appetite Review of Systems See HPI for pertinent positives & negatives. A total of 10 systems reviewed and were otherwise negative. Past Medical & Surgical Medical Problems: (1) Anemia (2) Dyspnea (3) HLD (hyperlipidemia) (4) HTN (hypertension) (5) Osteoporosis Surgical Problems: (1) Liver transplant failure (2) Liver transplant status Family History No pertinent family history stated. Social History Smoking Status: Never Smoker Alcohol Use: none Drug Use: none Marital Status: single Housing Status: lives alone Occupation Status: retired Current/Historical Medications Scheduled Amlodipine Besylate (Norvasc), 10 MG PO DAILY Atorvastatin (Lipitor), 20 MG PO HS Calcium Carbonate-Vitamin D (Oscal 500/200 D-3), 1 TAB PO DAILY Cholecalciferol (Vitamin D3), 2,000 UNITS PO DAILY Epoetin Wale (Procrit), 4,000 UNITS SC WK Everolimus (Immunosuppressant) (Zortress), 0.5 MG PO TID Ferrous Sulfate (Kp Ferrous Sulfate), 325 MG PO DAILY Multivitamin (Multivitamin), 1 TAB PO DAILY Nebivolol Hcl (Bystolic), 5 MG PO DAILY Sodium Bicarbonate (Sodium Bicarbonate), 1,300 MG PO TID Allergies Coded Allergies: No Known Allergies (Unverified , 01/19/17) Physical Exam Vital Signs Date Time Temp Pulse Resp B/P (MAP) Pulse Ox O2 Delivery O2 Flow Rate FiO2 01/20/17 00:38 68 18 175/104 96 Room Air 01/19/17 22:42 36.7 73 20 196/85 98 Room Air Physical Exam GENERAL: Patient is elderly appearing and in no acute distress. HEENT: No acute trauma, normocephalic atraumatic, mucous membranes moist, no nasal congestion, no scleral icterus. Pale conjunctiva. NECK: No stridor, no adenopathy, no meningismus, trachea is midline. LUNGS: No dyspnea. Clear to auscultation and equal bilaterally. No wheeze, no rhonchi. HEART: Regular rate and rhythm. No murmurs, rubs, gallops appreciated. ABDOMEN: Soft, nontender, bowel sounds positive, no masses appreciated, no peritonitis. BACK: No midline tenderness, no CVA tenderness EXTREMITIES: Normal motion all extremities, no cyanosis, no edema. NEUROLOGIC: Alert and oriented, no acute motor or sensory deficits, no focal weakness, cranial nerves grossly intact. SKIN: No rash, no jaundice, no diaphoresis. Medical Decision & Procedures ER Provider Diagnostic Interpretation: X-ray 1 view: Mild congestive failure. No acute infiltrate or effusion. Slight change from previous chest X-ray. Laboratory Results 01/19/17 23:18 Red Blood Count 2.75, Mean Corpuscular Volume 85.8, Mean Corpuscular Hemoglobin 27.6, Mean Corpuscular Hemoglobin Concent 32.2, Mean Platelet Volume 9.9, Neutrophils (%) (Auto) 45.0, Lymphocytes (%) (Auto) 42.8, Monocytes (%) (Auto) 7.9, Eosinophils (%) (Auto) 3.6, Basophils (%) (Auto) 0.7, Neutrophils # (Auto) 2.00, Lymphocytes # (Auto) 1.90, Monocytes # (Auto) 0.35, Eosinophils # (Auto) 0.16, Basophils # (Auto) 0.03 01/19/17 23:18 Test 01/19/17 23:18 White Blood Count 4.44 K/uL (4.8-10.8) Red Blood Count 2.75 M/uL (4.2-5.4) Hemoglobin 7.6 g/dL (12.0-16.0) Hematocrit 23.6 % (37-47) Mean Corpuscular Volume 85.8 fL (80-100) Mean Corpuscular Hemoglobin 27.6 pg (25-34) Mean Corpuscular Hemoglobin Concent 32.2 g/dl (32-36) Platelet Count 116 K/uL (130-400) Mean Platelet Volume 9.9 fL (7.4-10.4) Neutrophils (%) (Auto) 45.0 % Lymphocytes (%) (Auto) 42.8 % Monocytes (%) (Auto) 7.9 % Eosinophils (%) (Auto) 3.6 % Basophils (%) (Auto) 0.7 % Neutrophils # (Auto) 2.00 K/uL (1.4-6.5) Lymphocytes # (Auto) 1.90 K/uL (1.2-3.4) Monocytes # (Auto) 0.35 K/uL (0.11-0.59) Eosinophils # (Auto) 0.16 K/uL (0-0.5) Basophils # (Auto) 0.03 K/uL (0-0.2) RDW Standard Deviation 52.8 fL (36.4-46.3) RDW Coefficient of Variation 16.8 % (11.5-14.5) Immature Granulocyte % (Auto) 0.0 % Immature Granulocyte # (Auto) 0.00 K/uL (0.00-0.02) Anisocytosis PRESENT Anion Gap 9.0 mmol/L (3-11) Est Creatinine Clear Calc Drug Dose 7.2 ml/min Estimated GFR () 9.9 Estimated GFR (Non- 8.5 BUN/Creatinine Ratio 12.4 (10-20) Calcium Level 8.1 mg/dl (8.5-10.1) Magnesium Level 2.7 mg/dl (1.8-2.4) Total Bilirubin 0.4 mg/dl (0.2-1) Direct Bilirubin 0.2 mg/dl (0-0.2) Aspartate Amino Transf (AST/SGOT) 55 U/L (15-37) Alanine Aminotransferase (ALT/SGPT) 40 U/L (12-78) Alkaline Phosphatase 411 U/L (45-117) Troponin I < 0.015 ng/ml (0-0.045) Total Protein 8.1 gm/dl (6.4-8.2) Albumin 2.8 gm/dl (3.4-5.0) Laboratory results as reviewed by me. ECG Indication: other (abnornal labs) Rate (beats per minute): 71 Rhythm: normal sinus Findings: no acute ischemic change, no ectopy ED Course 2300: The patient was evaluated in room A3. A complete history and physical exam was performed. 0019: The patient is stable. We [facility]. 0045: Discussed the patient's case with Dr. Dee. The patient will be evaluated for further treatment and disposition. 0050: Upon reevaluation, the patient is resting. Discussed results and treatment plan with the patient. She verbalized understanding and agreement with the treatment plan. The patient will be evaluated for further management. Medical Decision Differential: Sepsis, Infectious (UTI/Pneumonia/Meningitis/etc), Metabolic/ Electrolyte Abnormality, Cardiac, Hepatic, Endocrine, Toxicologic, Neurologic, amongst other pathologies entertained. 76 yr old female arrives for evaluation of generalized weakness with recent labs revealing anemia in [place], thus driven from there to here for "admission." HgB on low end but just below where previously has been. She has mild trending up of her Cr as well. CXR with mild congestion though though overt CHF by exam nor history. Will defer transfusion to hospitalist. Suspect anemia due to chronic disease and renal failure and felt not to be GI on last visit. Right upper back pain of uncertain etiology, though could be due to some uremia? No clear evidence ACS/Infection and RUQ is soft non tender. LFT look ok currently. She is stable and will be brought in to hospitalist service. Medication Reconcilliation Current Medication List: was personally reviewed by me Blood Pressure Screening Patient's blood pressure: Elevated blood pressure will be monitored by hospitalist. Consults Time Called: 39 Consulting Physician: Dr. Dee-[facility] Returned Call: 44 Discussed the patient's case. The patient will be evaluated for further treatment and disposition. Impression Primary Impression: Anemia Additional Impressions: Renal failure Generalized weakness Scribe Attestation The scribe's documentation has been prepared under my direction and personally reviewed by me in its entirety. I confirm that the note above accurately reflects all work, treatment, procedures, and medical decision making performed by me. Departure Information Dispostion Being Evaluated By Hospitalist Referrals No Doctor, Assigned (PCP) Patient Instructions [facility] Health Problem Qualifiers
[2017-01-19] MEDS ORDERED: EPOE40007 SC (23:10)
[2017-01-19 23:42] LABS: BASO % 0.7 %; BASO ABS # 0.03 K/uL (0-0.2); EOS % 3.6 %; HEMATOCRIT 23.6 % (37-47); LYMPH % 42.8 %; MEAN CELL VOLUME 85.8 fL (80-100); MEAN CORPUSCULAR HEMOGLOBIN 27.6 pg (25-34); MEAN CORPUSCULAR HGB CONC 32.2 g/dl (32-36); MEAN PLATELET VOLUME 9.9 fL (7.4-10.4); MONO % 7.9 %; PLATELET COUNT 116 K/uL (130-400); RED BLOOD COUNT 2.75 M/uL (4.2-5.4); WHITE BLOOD COUNT 4.44 K/uL (4.8-10.8)
[2017-01-20] VITALS (20 sets, daily range): BP systolic 118–197; BP diastolic 55–77; PULSE 67–83; TEMP 36.5–37.1; O2SAT 93–98; Ht 149.9 cm; Wt 47.5 kg
[2017-01-20 00:06] LABS: ANISOCYTOSIS PRESENT; COMPLETE YES
[2017-01-20 00:12] LABS: ALKALINE PHOSPHATASE 411 U/L (45-117); ALT/SGPT 40 U/L (12-78); AST/SGOT 55 U/L (15-37); BLOOD UREA NITROGEN 58 mg/dl (7-18); BUN/CREATININE RATIO 12.4 (10-20); CALCIUM 8.1 mg/dl (8.5-10.1); CARBON DIOXIDE 19 mmol/L (21-32); CHLORIDE 115 mmol/L (98-107); GLUCOSE 148 mg/dl (70-99); MAGNESIUM 2.7 mg/dl (1.8-2.4); POTASSIUM 4.9 mmol/L (3.5-5.1); SODIUM 143 mmol/L (136-145)
[2017-01-20 02:02] LABS: URINE APPEARANCE CLEAR (CLEAR); URINE BILIRUBIN NEG (NEG); URINE COLOR YELLOW; URINE NITRITE NEG (NEG); URINE PH 6.5 (4.5-7.5); URINE SPECIFIC GRAVITY 1.008 (1.000-1.030); UROBILINOGEN NEG (NEG); ZZUR CULT IF INDIC CLEAN CATCH NO
[2017-01-20 02:04] LABS: MANUAL MICROSCOPIC REQUIRED? NO; REVIEW REQ? NO
[2017-01-20] MEDS ORDERED: NURSING VERBAL MED ORDER STA (02:50)
[2017-01-20] MEDS ORDERED: HydrALAZINE HCL 20 MG/ML VIAL IV. STA (03:00)
[2017-01-20] MEDS ORDERED: IV FLUIDS COMPLETED PRN (03:45)
[2017-01-20] MEDS ORDERED: ACETAMINOPHEN 325 MG TAB PO PRN (03:45)
[2017-01-20] MEDS ORDERED: ONDANSETRON INJ 2 MG/ML 2 ML VIAL IV PRN (03:45)
[2017-01-20] MEDS ORDERED: AMLO10TA2 PO (03:50)
[2017-01-20] MEDS ORDERED: HydrALAZINE HCL 20 MG/ML VIAL IV. PRN (04:00)
[2017-01-20] MEDS ORDERED: HOME MED ADMINISTRATION ONE (04:00)
[2017-01-20] MEDS ORDERED: SODIUM CHLORIDE 0.9% 1000ML 1,000 ML IV SCH (04:00)
--- NOTE | 2017-01-20 04:04 | History and Physical ---
History & Physical Date & Time of Service: Jan 20, 2017 at 03:55 Chief Complaint: Dyspnea Primary Care Physician: Dr. Vee Degroot in [place], NK=J History of Present Illness Source: patient, hospital records 76 yo F presents with anemia and was directed to come to the hospital by her Hospitality Team Member because of low blood counts. Her H/H is 7.6/24 down from 8.9/27 on discharge from the hospital one month ago when she was hospitalized for anemia of CKD requiring 2 units of blood. She also was found to have an elevated creatinine of 4.7 up from 4.1 on discharge. She is not on HD but is followed by Dr. Lau as outpatient. She denies any symptoms since discharge except from some muscle soreness in her R breast, shoulder and back area that is not as "hard" and "strong" as it was a few days ago. She denies any SOB. She reports that her chest soreness wound get worse with touching/rubbing the area and with deep breathing. She denies any coughing or recent cold symptoms. She reports 15 lb weight loss over the past 4 months, not so much from nausea as she just doesn't have an appetite. However, she reports that she eats because she knows she has to. She reports a thickening of her saliva that causes her to feel bad but she does not report any dysphagia or odynophagia. I suggested that the thickened saliva may be from dehydration and she said that couldn't be possible because of how much water she drinks. She is a liver transplant patient who had a repeat liver transplant and is on chronic immunosuppression. She denies any fevers or chills. She reports some chronic dizziness for the past two months but states that with her blood counts lower, she has not noticed any worsening of her dizziness. Past Medical/Surgical History Medical Problems: (1) Anemia Status: Chronic (2) HLD (hyperlipidemia) Status: Chronic (3) HTN (hypertension) Status: Chronic (4) Osteoporosis Status: Chronic Surgical Problems: (1) H/O detached retina repair Status: Chronic (2) Liver transplant failure Status: Resolved (3) Liver transplant status Status: Chronic (4) S/P cataract extraction and insertion of intraocular lens Status: Chronic (5) S/P tubal ligation Status: Chronic Family History Patient reports no known family medical history. Social History Smoking Status: Never Smoker Smokeless Tobacco Use: No Alcohol Use: none Drug Use: none Marital Status: single Housing status: lives alone Occupational Status: retired Immunizations History of Influenza Vaccine: Unknown History of Tetanus Vaccine?: Unknown History of Pneumococcal: Unknown History of Hepatitis B Vaccine: Unknown Multi-Drug Resistant Organisms History of MDRO: No Allergies Coded Allergies: No Known Allergies (Unverified , 01/19/17) Home Medications Scheduled Amlodipine Besylate (Norvasc), 10 MG PO DAILY Atorvastatin (Lipitor), 20 MG PO HS Calcium Carbonate-Vitamin D (Oscal 500/200 D-3), 1 TAB PO DAILY Cholecalciferol (Vitamin D3), 2,000 UNITS PO DAILY Epoetin Wale (Procrit), 4,000 UNITS SC WK Everolimus (Immunosuppressant) (Zortress), 0.5 MG PO TID Ferrous Sulfate (Kp Ferrous Sulfate), 325 MG PO DAILY Multivitamin (Multivitamin), 1 TAB PO DAILY Nebivolol Hcl (Bystolic), 5 MG PO DAILY Sodium Bicarbonate (Sodium Bicarbonate), 1,300 MG PO TID Review of Systems At least ten systems reviewed and negative except as indicated in HPI above. Physical Exam Vital Signs Date Time Temp Pulse Resp B/P (MAP) Pulse Ox O2 Delivery O2 Flow Rate FiO2 01/20/17 03:42 36.6 83 22 170/67 (101) 97 Room Air 01/20/17 02:10 36.7 74 16 197/76 95 Room Air 01/20/17 02:00 78 18 182/76 97 01/20/17 00:38 68 18 175/104 96 Room Air 01/19/17 22:42 36.7 73 20 196/85 98 Room Air General Appearance: no apparent distress, + thin Head: normocephalic, atraumatic Eyes: normal inspection, sclerae normal ENT: hearing grossly normal Neck: no JVD, trachea midline Respiratory/Chest: lungs clear, normal breath sounds, no respiratory distress, no accessory muscle use Cardiovascular: regular rate, rhythm, no edema, no gallop, no JVD, no murmur, normal peripheral pulses Abdomen/GI: normal bowel sounds, non tender, soft Back: normal inspection, no CVA tenderness Extremities/Musculoskelatal: normal inspection, no pedal edema Neurologic/Psych: no motor/sensory deficits, alert, normal mood/affect, oriented x 3 Skin: normal color, warm/dry, no rash Diagnostics Laboratory Results 01/20/17 06:11 01/20/17 06:11 Test 01/19/17 23:18 01/20/17 01:36 01/20/17 06:11 01/20/17 08:25 Immature Granulocyte % (Auto) 0.0 % White Blood Count 4.44 K/uL (4.8-10.8) Red Blood Count 2.75 M/uL (4.2-5.4) 2.41 M/uL (4.2-5.4) Hemoglobin 7.6 g/dL (12.0-16.0) Hematocrit 23.6 % (37-47) Mean Corpuscular Volume 85.8 fL (80-100) 85.1 fL (80-100) Mean Corpuscular Hemoglobin 27.6 pg (25-34) 27.8 pg (25-34) Mean Corpuscular Hemoglobin Concent 32.2 g/dl (32-36) 32.7 g/dl (32-36) Platelet Count 116 K/uL (130-400) Mean Platelet Volume 9.9 fL (7.4-10.4) 9.3 fL (7.4-10.4) Neutrophils (%) (Auto) 45.0 % Lymphocytes (%) (Auto) 42.8 % Monocytes (%) (Auto) 7.9 % Eosinophils (%) (Auto) 3.6 % Basophils (%) (Auto) 0.7 % Neutrophils # (Auto) 2.00 K/uL (1.4-6.5) Lymphocytes # (Auto) 1.90 K/uL (1.2-3.4) Monocytes # (Auto) 0.35 K/uL (0.11-0.59) Eosinophils # (Auto) 0.16 K/uL (0-0.5) Basophils # (Auto) 0.03 K/uL (0-0.2) Immature Granulocyte # (Auto) 0.00 K/uL (0.00-0.02) Anisocytosis PRESENT Total Bilirubin 0.4 mg/dl (0.2-1) Direct Bilirubin 0.2 mg/dl (0-0.2) Aspartate Amino Transf (AST/SGOT) 55 U/L (15-37) Alanine Aminotransferase (ALT/SGPT) 40 U/L (12-78) Alkaline Phosphatase 411 U/L (45-117) Troponin I < 0.015 ng/ml (0-0.045) Total Protein 8.1 gm/dl (6.4-8.2) Albumin 2.8 gm/dl (3.4-5.0) Urine Color YELLOW Urine Appearance CLEAR (CLEAR) Urine pH 6.5 (4.5-7.5) Urine Specific [place] 1.008 (1.000-1.030) Urine Protein NEG (NEG) Urine Glucose (UA) NEG (NEG) Urine Ketones NEG (NEG) Urine Occult Blood NEG (NEG) Urine Nitrite NEG (NEG) Urine Bilirubin NEG (NEG) Urine Urobilinogen NEG (NEG) Urine Leukocyte Esterase NEG (NEG) Urine WBC (Auto) 0 /hpf (0-5) Urine RBC (Auto) 0-4 /hpf (0-4) Urine Hyaline Casts (Auto) 0 /lpf (0-5) Urine Epithelial Cells (Auto) 5-10 /lpf (0-5) Urine Bacteria (Auto) NEG (NEG) RDW Standard Deviation 51.5 fL (36.4-46.3) RDW Coefficient of Variation 16.6 % (11.5-14.5) Platelet Estimate DECREASED Prothrombin Time 11.8 SECONDS (9.0-12.0) Prothromb Time International Ratio 1.1 (0.9-1.1) Anion Gap 8.0 mmol/L (3-11) Est Creatinine Clear Calc Drug Dose 7.7 ml/min Estimated GFR () 10.7 Estimated GFR (Non- 9.2 BUN/Creatinine Ratio 12.0 (10-20) Calcium Level 8.2 mg/dl (8.5-10.1) Phosphorus Level 3.6 mg/dl (2.5-4.9) Magnesium Level 2.5 mg/dl (1.8-2.4) Urine Random Creatinine 34.0 mg/dl Urine Random Sodium 98 mEq/L Results Past 24 Hours Test 01/19/17 23:18 01/20/17 01:36 Range/Units White Blood Count 4.44 4.8-10.8 K/uL Red Blood Count 2.75 4.2-5.4 M/uL Hemoglobin 7.6 12.0-16.0 g/dL Hematocrit 23.6 37-47 % Mean Corpuscular Volume 85.8 80-100 fL Mean Corpuscular Hemoglobin 27.6 25-34 pg Mean Corpuscular Hemoglobin Concent 32.2 32-36 g/dl Platelet Count 116 130-400 K/uL Mean Platelet Volume 9.9 7.4-10.4 fL Neutrophils (%) (Auto) 45.0 % Lymphocytes (%) (Auto) 42.8 % Monocytes (%) (Auto) 7.9 % Eosinophils (%) (Auto) 3.6 % Basophils (%) (Auto) 0.7 % Neutrophils # (Auto) 2.00 1.4-6.5 K/uL Lymphocytes # (Auto) 1.90 1.2-3.4 K/uL Monocytes # (Auto) 0.35 0.11-0.59 K/uL Eosinophils # (Auto) 0.16 0-0.5 K/uL Basophils # (Auto) 0.03 0-0.2 K/uL RDW Standard Deviation 52.8 36.4-46.3 fL RDW Coefficient of Variation 16.8 11.5-14.5 % Immature Granulocyte % (Auto) 0.0 % Immature Granulocyte # (Auto) 0.00 0.00-0.02 K/uL Anisocytosis PRESENT Sodium Level 143 136-145 mmol/L Potassium Level 4.9 3.5-5.1 mmol/L Chloride Level 115 98-107 mmol/L Carbon Dioxide Level 19 21-32 mmol/L Anion Gap 9.0 3-11 mmol/L Blood Urea Nitrogen 58 7-18 mg/dl Creatinine 4.70 0.60-1.20 mg/dl Est Creatinine Clear Calc Drug Dose 7.2 ml/min Estimated GFR () 9.9 Estimated GFR (Non- 8.5 BUN/Creatinine Ratio 12.4 10-20 Random Glucose 148 70-99 mg/dl Calcium Level 8.1 8.5-10.1 mg/dl Magnesium Level 2.7 1.8-2.4 mg/dl Total Bilirubin 0.4 0.2-1 mg/dl Direct Bilirubin 0.2 0-0.2 mg/dl Aspartate Amino Transf (AST/SGOT) 55 15-37 U/L Alanine Aminotransferase (ALT/SGPT) 40 12-78 U/L Alkaline Phosphatase 411 45-117 U/L Troponin I < 0.015 0-0.045 ng/ml Total Protein 8.1 6.4-8.2 gm/dl Albumin 2.8 3.4-5.0 gm/dl Urine Color YELLOW Urine Appearance CLEAR CLEAR Urine pH 6.5 4.5-7.5 Urine Specific [place] 1.008 1.000-1.030 Urine Protein NEG NEG Urine Glucose (UA) NEG NEG Urine Ketones NEG NEG Urine Occult Blood NEG NEG Urine Nitrite NEG NEG Urine Bilirubin NEG NEG Urine Urobilinogen NEG NEG Urine Leukocyte Esterase NEG NEG Urine WBC (Auto) 0 0-5 /hpf Urine RBC (Auto) 0-4 0-4 /hpf Urine Hyaline Casts (Auto) 0 0-5 /lpf Urine Epithelial Cells (Auto) 5-10 0-5 /lpf Urine Bacteria (Auto) NEG NEG Diagnostic Radiology CHEST ONE VIEW PORTABLE HISTORY: 76 years-old Female right chest pain acute atypical chest pain COMPARISON: Chest radiograph 12/22/2016 TECHNIQUE: Portable upright AP view of the chest FINDINGS: Cardiac silhouette is again mildly enlarged. There is atherosclerosis of the aorta. There is no pneumothorax. Pulmonary vascular congestion is noted without overt pulmonary edema. Trace right pleural effusion persists. There are patchy bibasilar and left midlung opacities, new from prior study. The bones are grossly intact. IMPRESSION: 1. Patchy alveolar bibasilar and lateral left midlung opacities are new from prior study suggesting pneumonia. 2. Cardiomegaly with mild pulmonary vascular congestion and trace right pleural effusion. Normal EKG Impression Assessment and Plan 76 yo F presents for consideration of blood transfusion based on low H/H on labwork. 1. Anemia of CKD-appears to be transfusion dependent. Recently admitted for this same issue last month and required 2 units of pRBCs. H/H fell into critical range overnight and 2 units blood were ordered. She denies any bleeding. Started on procrit injections and recently received one shot this week. 2. HCAP-no signs or symptoms of pneumonia, however, she is on immunosuppressive therapy. Formal CXR reading per Radiology this morning reveals likely infiltrate. She is not septic. Blood and sputum cultures were ordered. Started on Rocephin and Azithromycin empirically. Monitor closely for fevers. Of note, with IVF and then blood products given overnight, need to monitor respiratory status closely--she did appear intravascularly depleted on exam. 3. DEVEN on CKD IV-not on hemodialysis with a worsening of her creatinine. Poss 2/2 pneumonia. Gave 1L NSS overnight and consulted Nephrology for assistance. Cont bicarb PO TID 4. weight loss-reported 15 lb weight loss in last 3-4 months. Hydrometer Finisher consult was ordered. Pt also denies dysphagia but reports thickening of her saliva which sometimes complicates eating/swallowing. Apprec speech path evaluation of this issue. Holding iron as this can cause constipation. 5. s/p liver transplant-on immunosuppressive therapy 6. HTN-uncontrolled, of note Norvasc was not on her initial list coming in and pt was unsure of her medications. It is possible that she has not been taking this. Hydralazine given overnight for systolic in the 190s. Cont this in conjunction with Bystolic if she can obtain it from home. Consider alternative regimen if this is not possible. 7. HLP-Lipitor per home regimen DVT proph-Heparin Full Code Dispo-telemetry Maria Eugenia Dee DO [facility] Hospitalist Level of Care Telemetry Advanced Directives Existing Living Will: Yes Existing Power of General Maintenance Mechanic: Yes Resuscitation Status FULL RESUSCITATION VTE Prophylaxis VTE Risk Assessment Done? Y/N: Yes Risk Level: Moderate Given or contraindicated: Unfractionated heparin SQ
--- NOTE | 2017-01-20 06:20 | DIAGNOSTIC IMAGING REPORT ---
CHEST ONE VIEW PORTABLE HISTORY: 76 years-old Female right chest pain acute atypical chest pain COMPARISON: Chest radiograph 12/22/2016 TECHNIQUE: Portable upright AP view of the chest FINDINGS: Cardiac silhouette is again mildly enlarged. There is atherosclerosis of the aorta. There is no pneumothorax. Pulmonary vascular congestion is noted without overt pulmonary edema. Trace right pleural effusion persists. There are patchy bibasilar and left midlung opacities, new from prior study. The bones are grossly intact. IMPRESSION: 1. Patchy alveolar bibasilar and lateral left midlung opacities are new from prior study suggesting pneumonia. 2. Cardiomegaly with mild pulmonary vascular congestion and trace right pleural effusion. The above report was generated using voice recognition software. It may contain grammatical, syntax or spelling errors. Electronically signed by: Mikey Montgomery M.D. 01/20/2017 6:18 AM Dictated Date/Time: 01/20/2017 6:17 AM
[2017-01-20 06:44] LABS: INR 1.1 (0.9-1.1); PROTHROMBIN TIME (PATIENT) 11.8 SECONDS (9.0-12.0)
[2017-01-20 06:45] LABS: HEMATOCRIT 20.5 % (37-47); MEAN CELL VOLUME 85.1 fL (80-100); MEAN CORPUSCULAR HEMOGLOBIN 27.8 pg (25-34); MEAN CORPUSCULAR HGB CONC 32.7 g/dl (32-36); RED BLOOD COUNT 2.41 M/uL (4.2-5.4); WHITE BLOOD COUNT 4.76 K/uL (4.8-10.8)
[2017-01-20 06:52] LABS: MEAN PLATELET VOLUME 9.3 fL (7.4-10.4); PLATELET COUNT 94 K/uL (130-400)
[2017-01-20 06:53] LABS: PLT ESTIMATE DECREASED
[2017-01-20 06:55] LABS: CALCIUM 8.2 mg/dl (8.5-10.1); CREATININE 4.4 mg/dl (0.60-1.20); MAGNESIUM 2.5 mg/dl (1.8-2.4); PHOSPHORUS 3.6 mg/dl (2.5-4.9); POTASSIUM 4.9 mmol/L (3.5-5.1)
[2017-01-20] MEDS ORDERED: ACETAMINOPHEN 325 MG TAB PO ONE ×2 (07:00→15:30)
[2017-01-20] MEDS: NEBIVOLOL HCL 5 MG TAB PO SCH (07:58)
[2017-01-20] MEDS: CHOLECALCIFEROL 1000 INTER.UNIT TAB PO SCH (07:58)
[2017-01-20] MEDS: SODIUM BICARBONATE 650 MG TAB PO SCH ×3 (07:58→21:01)
[2017-01-20] MEDS: CALCIUM 600MG + VIT D 400 IU TAB PO SCH ×2 (07:59→21:01)
[2017-01-20] MEDS: MULTIVITAMIN TAB PO SCH (07:59)
[2017-01-20] MEDS: AMLODIPINE BESYLATE 5 MG TAB PO SCH (08:00)
[2017-01-20] MEDS: HEPARIN SOD 5000 UNIT/0.5 ML CARP SQ SCH ×2 (08:08→15:23)
[2017-01-20] MEDS ORDERED: CONSULT PHARMACY STA (09:32)
[2017-01-20] MEDS ORDERED: AZITHROMYCIN 500 MG / D5W 250 ML IV STA ×2 (10:45)
[2017-01-20] MEDS ORDERED: CEFTRIAXONE SOD INJ 2000 MG in DEXTROSE 5% 50ML IV STA (10:45)
[2017-01-20] MEDS ORDERED: [UNRECOGNIZED DRUG - OTHER] PRN (11:00)
[2017-01-20] MEDS ORDERED: CEFTRIAXONE CONSULT PHARMACY PRN (11:00)
--- NOTE | 2017-01-20 13:25 | NEPHROLOGY CONSULTATION ---
DATE OF CONSULTATION: 01/20/2017 DATE OF CONSULTATION: 01/20/2017 HISTORY OF PRESENT ILLNESS: The patient is a 76-year-old female who was directed to come to the hospital by her procurement coordinator, Dr. Lau, because of severe anemia. It is worth noting that patient has complicated medical history including liver transplant x2, on chronic immunosuppression as well as CKD stage V, with the last baseline creatinine of 4.1 as well as severe anemia of CKD. She was just started on Procrit, which she gets every week, but despite that her blood count dropped to 7.6, down from 8.9 on discharge from [facility] a month ago. During that hospital admission also she required 2 units of blood. At the time of the admission yesterday, her creatinine was 4.7, which is slightly up from 4.1 on discharge, however her blood pressure was very high and her chest x-ray shows pulmonary edema. She did get IV fluid and she is still getting normal saline at this time. Her overall health has been declining with more than 15 pound weight loss for the last 4 months and she has chronic nausea as well as poor appetite. She denies having any blood in the stool. Since admission hemoglobin dropped even lower with IV fluid. It dropped down to 6.7 after which she is written to have blood transfusion 2 units. It is not clear whether she actually takes blood pressure medication or not. PAST MEDICAL AND SURGICAL HISTORY: Anemia, hyperlipidemia, hypertension, osteoporosis, liver transplant status x2, cataract, tubal ligation, chronic kidney disease stage V, severe anemia of CKD requiring Procrit. FAMILY HISTORY: No known family medical history. SOCIAL HISTORY: No smoking, no alcohol, no drugs. She is single, lives alone. She is retired. She mostly lives in [place] where she gets most of her healthcare, but she also comes to [place] a lot because 1 of her sons lives here. HOME MEDICATIONS: Home medication list was reviewed in detailed and includes but it is not confirmed that she actually takes all of these medications. The list includes amlodipine, atorvastatin, calcium, vitamin D, Procrit 4000 units subQ every week, everolimus, iron sulfate, multivitamin, Bystolic, sodium bicarbonate 1300 t.i.d. REVIEW OF SYSTEMS: Twelve systems reviewed and is otherwise negative unless stated otherwise in HPI. PHYSICAL EXAMINATION: GENERAL: Elderly female who appears chronically ill. She is not in any respiratory distress. She is malnourished. HEAD, EYES, EARS, NOSE, AND THROAT: Normocephalic, atraumatic. Mucous membrane is moist. NECK: Supple. No jugular venous distention. LUNGS: Clear, bilateral breath sounds equal. No crackles or rub heard. CARDIOVASCULAR: Regular rate and rhythm. No edema or murmur. ABDOMEN: Soft, nontender. No appreciable ascites noted. BACK: There is no CVA tenderness. EXTREMITIES: No edema. NEUROLOGIC: No focal deficit noted. Awake, alert, oriented x3. SKIN: Normal color. LABORATORY DATA: Most recent hemoglobin 6.7, platelet count 94,000, WBC count 4.7. Sodium 144, potassium 4.9, BUN 53, creatinine 4.4. This is slightly less from 4.7 yesterday. Calcium 8.2, magnesium 2.5. Urine sodium 98. Urine creatinine 34. Urinalysis shows negative blood, negative protein. Chest x-ray showed patchy alveolar bibasilar and lateral left lung opacities, cardiomegaly with mild pulmonary vascular congestion and trace right pleural effusion. ASSESSMENT AND PLAN: A 76-year-old female with chronic kidney disease stage V, baseline creatinine 4.1 with severe anemia of chronic kidney disease despite Procrit now admitted with significant drop in hemoglobin. 1. Chronic kidney disease V. At this time she is not volume depleted. If anything, she is volume overloaded based on her admission blood pressure as well as chest x-ray finding. IV fluid needs to be stopped right away. She may actually need Lasix, but given that she is not in any distress we can hold off but definitely do not give more fluid for rising creatinine. I believe that this patient should be started on dialysis at this time. For someone with liver disease and such a low muscle mass with poor appetite and 15 pound weight loss she fulfills the criteria for chronic dialysis. I would defer this decision to her procurement coordinator. Also, it is complicated because she lives mostly in [place], but my personal opinion is this patient needs to be started on chronic maintenance dialysis within next few days. 2. Severe anemia of chronic kidney disease. She has very low hemoglobin despite Procrit every week. I do not think she is bleeding anywhere. This is just a reflection of severe CKD related anemia and would likely benefit by starting dialysis. 3. Hypertension. She had severely high blood pressure at the time of admission which pretty much rules out severe dehydration. It is not entirely clear that she was actually taking the medication like she is supposed to. After using all the medicine she was supposed to be taking her blood pressure is now normal. Thank you very much for the consult. NOELLE
[2017-01-20] MEDS: BOOST BREEZE NUTRITION DRINK 1 BOX PO SCH (19:22)
--- NOTE | 2017-01-20 19:24 | Progress Note ---
Internal Med Progress Note Date of Service: Jan 20, 2017. Provider Documentation: SUBJECTIVE: offers no complain OBJECTIVE: Vital Signs-as noted below Exam: General-elderly female , no sign of distress Eyes-sclera non icteric ENT-NAD Neck-no JVD , no thyromegaly Lungs-CTA ,no wheeze or rales Heart-regular S1.S2 Abdomen-soft,non tender Extremities-no lower ext edema Neuro-AAO x3, Lab data as noted below. ASSESSMENT & PLAN: ANEMIA OF CHRONIC DISEASE : recent started on Procrit HB in ~6 ordered for 2 Units of PRBC tx -irradiated due to irradiated blood products transfusion was not started till late afternoon pt denies of any dizzy spell or lightheadedness repeat CBC in AM [facility] Cxray shows basilar infiltrate Blood and sputum cultures were ordered. Started on Rocephin and Azithromycin empirically DEVEN ON CKD STAGE : Cr in worsened to 4. 7 possible due to infection Nephrology consulted , appreciate input . Cont bicarb PO TID SIGNIFICANT WT LOSS -reported 15 lb weight loss in last 3-4 months. Health Plan Advisor consult was ordered. Speech eval appreciated -recommend dental soft diet pt report of having colonoscopy few yrs back was normal ( follows with physician in [place] ) LIVER TRANSPLANT STATUS on immunosuppressive therapy HTN : BP was elevated initially much better now cont on Norvasc . Bystolic PRN Hydralazine ordered may benefit form schedule dose of PO Hydralazine if BP remains elevated will defer to Nephrology DVT proph-Heparin Full Code DISPOSITION PT/OT eval lives at home with son expected to be discharged home when medically stable will benefit with home health visiting nurse Vital Signs: Date Time Temp Pulse Resp B/P (MAP) Pulse Ox O2 Delivery O2 Flow Rate FiO2 01/20/17 18:37 36.8 75 20 156/77 (103) 97 Room Air 01/20/17 18:08 36.8 75 18 147/74 97 01/20/17 17:10 36.8 74 22 143/67 95 01/20/17 16:45 79 18 129/64 96 01/20/17 16:10 36.7 70 22 118/55 96 01/20/17 16:00 Room Air 01/20/17 15:40 36.8 71 20 131/65 93 01/20/17 15:20 36.9 75 20 137/67 96 01/20/17 15:10 37.1 76 20 132/68 96 01/20/17 12:00 Room Air 01/20/17 10:53 36.7 72 18 124/61 (82) 97 Room Air 01/20/17 08:09 36.5 79 20 178/72 (107) 96 Room Air 01/20/17 08:00 Room Air 01/20/17 04:00 Room Air 01/20/17 03:42 36.6 83 22 170/67 (101) 97 Room Air 01/20/17 02:10 36.7 74 16 197/76 95 Room Air 01/20/17 02:00 78 18 182/76 97 01/20/17 00:38 68 18 175/104 96 Room Air 01/19/17 22:42 36.7 73 20 196/85 98 Room Air Lab Results: Results Past 24 Hours Test 01/19/17 23:18 01/20/17 01:36 01/20/17 06:11 01/20/17 08:25 Range/Units White Blood Count 4.44 4.76 4.8-10.8 K/uL Red Blood Count 2.75 2.41 4.2-5.4 M/uL Hemoglobin 7.6 6.7 12.0-16.0 g/dL Hematocrit 23.6 20.5 37-47 % Mean Corpuscular Volume 85.8 85.1 80-100 fL Mean Corpuscular Hemoglobin 27.6 27.8 25-34 pg Mean Corpuscular Hemoglobin Concent 32.2 32.7 32-36 g/dl Platelet Count 116 94 130-400 K/uL Mean Platelet Volume 9.9 9.3 7.4-10.4 fL Neutrophils (%) (Auto) 45.0 % Lymphocytes (%) (Auto) 42.8 % Monocytes (%) (Auto) 7.9 % Eosinophils (%) (Auto) 3.6 % Basophils (%) (Auto) 0.7 % Neutrophils # (Auto) 2.00 1.4-6.5 K/uL Lymphocytes # (Auto) 1.90 1.2-3.4 K/uL Monocytes # (Auto) 0.35 0.11-0.59 K/uL Eosinophils # (Auto) 0.16 0-0.5 K/uL Basophils # (Auto) 0.03 0-0.2 K/uL RDW Standard Deviation 52.8 51.5 36.4-46.3 fL RDW Coefficient of Variation 16.8 16.6 11.5-14.5 % Immature Granulocyte % (Auto) 0.0 % Immature Granulocyte # (Auto) 0.00 0.00-0.02 K/uL Anisocytosis PRESENT Sodium Level 143 144 136-145 mmol/L Potassium Level 4.9 4.9 3.5-5.1 mmol/L Chloride Level 115 116 98-107 mmol/L Carbon Dioxide Level 19 20 21-32 mmol/L Anion Gap 9.0 8.0 3-11 mmol/L Blood Urea Nitrogen 58 53 7-18 mg/dl Creatinine 4.70 4.40 0.60-1.20 mg/dl Est Creatinine Clear Calc Drug Dose 7.2 7.7 ml/min Estimated GFR () 9.9 10.7 Estimated GFR (Non- 8.5 9.2 BUN/Creatinine Ratio 12.4 12.0 10-20 Random Glucose 148 88 70-99 mg/dl Calcium Level 8.1 8.2 8.5-10.1 mg/dl Magnesium Level 2.7 2.5 1.8-2.4 mg/dl Total Bilirubin 0.4 0.2-1 mg/dl Direct Bilirubin 0.2 0-0.2 mg/dl Aspartate Amino Transf (AST/SGOT) 55 15-37 U/L Alanine Aminotransferase (ALT/SGPT) 40 12-78 U/L Alkaline Phosphatase 411 45-117 U/L Troponin I < 0.015 0-0.045 ng/ml Total Protein 8.1 6.4-8.2 gm/dl Albumin 2.8 3.4-5.0 gm/dl Urine Color YELLOW Urine Appearance CLEAR CLEAR Urine pH 6.5 4.5-7.5 Urine Specific [place] 1.008 1.000-1.030 Urine Protein NEG NEG Urine Glucose (UA) NEG NEG Urine Ketones NEG NEG Urine Occult Blood NEG NEG Urine Nitrite NEG NEG Urine Bilirubin NEG NEG Urine Urobilinogen NEG NEG Urine Leukocyte Esterase NEG NEG Urine WBC (Auto) 0 0-5 /hpf Urine RBC (Auto) 0-4 0-4 /hpf Urine Hyaline Casts (Auto) 0 0-5 /lpf Urine Epithelial Cells (Auto) 5-10 0-5 /lpf Urine Bacteria (Auto) NEG NEG Platelet Estimate DECREASED Prothrombin Time 11.8 9.0-12.0 SECONDS Prothromb Time International Ratio 1.1 0.9-1.1 Phosphorus Level 3.6 2.5-4.9 mg/dl Urine Random Creatinine 34.0 mg/dl Urine Random Sodium 98 mEq/L Microbiology Results 01/20/17 Blood Culture, Received Pending 01/20/17 Blood Culture, Received Pending 01/20/17 Gram Stain, Received Pending 01/20/17 Sputum Culture, Received Pending
[2017-01-20] MEDS: ATORVASTATIN 20 MG TAB PO SCH (21:01)
[2017-01-21] VITALS (8 sets, daily range): BP systolic 148–171; BP diastolic 68–79; PULSE 68–77; TEMP 36.5–37; O2SAT 94–98
[2017-01-21 07:01] LABS: MEAN CELL VOLUME 83.9 fL (80-100); MEAN CORPUSCULAR HEMOGLOBIN 27.6 pg (25-34); RED BLOOD COUNT 3.22 M/uL (4.2-5.4); WHITE BLOOD COUNT 3.95 K/uL (4.8-10.8)
[2017-01-21] MEDS: HEPARIN SOD 5000 UNIT/0.5 ML CARP SQ SCH ×4 (07:11→23:29)
[2017-01-21] MEDS: BOOST BREEZE NUTRITION DRINK 1 BOX PO SCH ×3 (07:11→21:00)
[2017-01-21 07:15] LABS: MEAN PLATELET VOLUME 9.5 fL (7.4-10.4); PLATELET COUNT 93 K/uL (130-400)
[2017-01-21 07:17] LABS: BUN/CREATININE RATIO 11.6 (10-20); CALCIUM 7.9 mg/dl (8.5-10.1); CREATININE 4.2 mg/dl (0.60-1.20); POTASSIUM 4.7 mmol/L (3.5-5.1)
[2017-01-21] MEDS: CHOLECALCIFEROL 1000 INTER.UNIT TAB PO SCH (08:00)
[2017-01-21] MEDS: MULTIVITAMIN TAB PO SCH (08:00)
[2017-01-21] MEDS: SODIUM BICARBONATE 650 MG TAB PO SCH ×3 (08:00→21:30)
[2017-01-21] MEDS: CALCIUM 600MG + VIT D 400 IU TAB PO SCH ×2 (08:00→21:29)
[2017-01-21] MEDS: NEBIVOLOL HCL 5 MG TAB PO SCH (08:01)
[2017-01-21] MEDS: AMLODIPINE BESYLATE 5 MG TAB PO SCH (08:01)
[2017-01-21] MEDS: CEFTRIAXONE SOD INJ 2000 MG in DEXTROSE 5% 50ML IV SCH (10:01)
[2017-01-21] MEDS: AZITHROMYCIN 500 MG / D5W 250 ML IV SCH ×2 (10:46)
--- NOTE | 2017-01-21 11:53 | Progress Note ---
Medicine Progress Note Date & Time of Visit: Jan 21, 2017 at 11:34. Subjective Pt was seen and examined Lying in bed with no distress Case discussed with son Pt said that she feels much better today she would like to go home today she said that she has some tenderness around her right side of her back denies any chest pain, palpitation, dizziness and SOB Objective Last 8 Hrs Date Time Temp Pulse Resp B/P (MAP) Pulse Ox O2 Delivery O2 Flow Rate FiO2 01/21/17 11:02 36.5 68 20 162/72 (102) 97 Room Air 01/21/17 10:04 171/74 (106) 01/21/17 08:00 Room Air 01/21/17 07:47 36.9 73 18 166/72 (103) 94 Room Air 01/21/17 04:00 Room Air Physical Exam: General- No acute distress Head- atraumatic Eyes- PERRL, EOMI ENT- oropharynx clear Neck- supple, no JVD Lungs- clear to auscultation Heart- regular rhythm Abdomen- normal bowel sounds, soft Extremities- No calf tenderness Neuro- alert, oriented x 3, PERRL, EOMI Skin- warm & dry Laboratory Results: Last 24 Hours Test 01/21/17 06:31 White Blood Count 3.95 K/uL Red Blood Count 3.22 M/uL Hemoglobin 8.9 g/dL Hematocrit 27.0 % Mean Corpuscular Volume 83.9 fL Mean Corpuscular Hemoglobin 27.6 pg Mean Corpuscular Hemoglobin Concent 33.0 g/dl RDW Standard Deviation 50.1 fL RDW Coefficient of Variation 16.3 % Platelet Count 93 K/uL Mean Platelet Volume 9.5 fL Sodium Level 144 mmol/L Potassium Level 4.7 mmol/L Chloride Level 118 mmol/L Carbon Dioxide Level 18 mmol/L Anion Gap 8.0 mmol/L Blood Urea Nitrogen 49 mg/dl Creatinine 4.20 mg/dl Est Creatinine Clear Calc Drug Dose 8.0 ml/min Estimated GFR () 11.3 Estimated GFR (Non- 9.8 BUN/Creatinine Ratio 11.6 Random Glucose 80 mg/dl Calcium Level 7.9 mg/dl Assessment & Plan ANEMIA OF CHRONIC DISEASE : Recent started on Procrit Hgb on admission 6.7 S/P 2 Units of irradiated PRBC Asymptomatic Hgb today 8.9 Continue monitor CBC [facility] CXR showed patchy alveolar bibasilar and lateral left midlung opacities Asymptomatic Blood pending and sputum cultures showed possible contamination Continue Rocephin and Azithromycin DEVEN ON CKD STAGE : Cr in worsened to 4. 7 Creatine improved to 4.2 Nephrology consulted , appreciate input Cont bicarb PO TID Pt has a follow up appt with Nephro this Wed. Will need to start working on AV Fistula WT LOSS 15 lb weight loss in last 3-4 months. Behavioral Health Therapist consult on board Speech eval appreciated -recommend dental soft diet pt report of having colonoscopy few yrs back was normal ( follows with physician in [place] ) LIVER TRANSPLANT STATUS on immunosuppressive therapy Stable HTN BP Elevated cont on Norvasc and Bystolic will start on hydralazine 25 mg BID if BP continue to elevate PRN Hydralazine ordered continue monitor BP DVT proph-Heparin subq Code status Full Code DISPOSITION PT/OT eval lives at home with son expected to be discharged home when medically stable Consultants: Nephrology Current Inpatient Medications: Current Inpatient Medications Medications (Trade) Dose Ordered Sig/Robert Route Start Time Stop Time Status Last Admin Dose Admin Miscellaneous (Iv Fluids Completed) 1 ea PRN PRN N/A 01/20/17 03:45 01/20/18 03:44 Heparin Sodium (Porcine) (Heparin Sq 5000 Unit/0.5ml) 5,000 unit Q8H SQ 01/20/17 08:00 02/19/17 07:59 01/20/17 08:08 5,000 UNIT Acetaminophen (Tylenol Tab) 650 mg Q4H PRN PO 01/20/17 03:45 02/19/17 03:44 Ondansetron HCl (Zofran Inj) 4 mg Q6H PRN IV 01/20/17 03:45 02/19/17 03:44 Amlodipine Besylate (Norvasc Tab) 10 mg DAILY PO 01/20/17 09:00 02/19/17 08:59 01/21/17 08:01 10 MG Atorvastatin Calcium (Lipitor Tab) 20 mg HS PO 01/20/17 21:00 02/19/17 20:59 01/20/17 21:01 20 MG Multivitamins (Multivitamin Tab) 1 tab DAILY PO 01/20/17 09:00 02/19/17 08:59 01/21/17 08:00 1 TAB Sodium Bicarbonate (Sodium Bicarbonate Tab) 1,300 mg TID PO 01/20/17 09:00 02/19/17 08:59 01/21/17 08:00 1,300 MG Miscellaneous Information (Order Awaiting Action) 1 ea QS N/A 01/20/17 08:00 02/19/17 07:59 Nebivolol (Bystolic Tab) 5 mg DAILY PO 01/20/17 09:00 02/19/17 08:59 01/21/17 08:01 5 MG Calcium/Vitamin D (Caltrate Plus Tab) 1 tab BID PO 01/20/17 09:00 02/19/17 08:59 01/21/17 08:00 1 TAB Cholecalciferol (Vitamin D Tab) 2,000 inter.unit QAM PO 01/20/17 09:00 02/19/17 08:59 01/21/17 08:00 2,000 INTER.UNIT Hydralazine HCl (HydrALAZINE INJ) 10 mg Q6H PRN IV. 01/20/17 04:00 02/19/17 03:59 Miscellaneous Information (Pharmacy Consult) 1 ea UD PRN N/A 01/20/17 11:00 02/19/17 10:59 Miscellaneous Information (Pharmacy Consult) 1 ea UD PRN N/A 01/20/17 11:00 02/19/17 10:59 Ceftriaxone Sodium 2000 mg/ Dextrose 70 ml @ 140 mls/hr Q24H IV 01/21/17 11:00 01/27/17 10:59 01/21/17 10:01 140 MLS/HR Azithromycin 500 mg/Dextrose 255 ml @ 127.5 mls/ hr Q24H IV 01/21/17 12:00 01/27/17 11:59 01/21/17 10:46 127.5 MLS/HR Enteral Nutritional Formula (Boost Breeze Nutritional Drink) 1 box BID PO 01/20/17 21:00 02/19/17 20:59 01/21/17 08:02 1 BOX
[2017-01-21] MEDS: ATORVASTATIN 20 MG TAB PO SCH (21:29)
[2017-01-22] VITALS (8 sets, daily range): BP systolic 138–163; BP diastolic 61–70; PULSE 68–73; TEMP 36.5–36.9; O2SAT 94–96
[2017-01-22] MEDS ORDERED: LORAZEPAM 0.5 MG TAB PO SCH
[2017-01-22] MEDS ORDERED: LORAZEPAM 0.5 MG TAB ONE (00:17)
[2017-01-22 06:03] LABS: CALCIUM 7.5 mg/dl (8.5-10.1); CREATININE 4.1 mg/dl (0.60-1.20); POTASSIUM 4.6 mmol/L (3.5-5.1)
[2017-01-22 06:58] LABS: MEAN CELL VOLUME 84.4 fL (80-100); MEAN CORPUSCULAR HEMOGLOBIN 28.1 pg (25-34); MEAN CORPUSCULAR HGB CONC 33.3 g/dl (32-36); WHITE BLOOD COUNT 3.85 K/uL (4.8-10.8)
[2017-01-22 07:08] LABS: PLATELET COUNT 94 K/uL (130-400)
--- NOTE | 2017-01-22 07:20 | DIAGNOSTIC IMAGING REPORT ---
CHEST ONE VIEW PORTABLE CLINICAL HISTORY: Follow up study. COMPARISON STUDY: Chest radiograph January 19, 2017. FINDINGS: A small right and trace left pleural effusion are noted. There is no pneumothorax. There is no lobar consolidation. Bibasilar airspace opacities persist although have slightly improved. There is no radiographic evidence of pulmonary edema. Cardiomediastinal silhouette is stable. IMPRESSION: 1. Interval improvement in bilateral airspace opacities which favors improving pneumonia. 2. Small right and trace left pleural effusions. 3. No radiographic evidence of pulmonary edema. Electronically signed by: Milton Calloway M.D. 01/22/2017 7:18 AM Dictated Date/Time: 01/22/2017 7:16 AM
[2017-01-22] MEDS: MULTIVITAMIN TAB PO SCH (09:01)
[2017-01-22] MEDS: SODIUM BICARBONATE 650 MG TAB PO SCH ×2 (09:01→14:01)
[2017-01-22] MEDS: CALCIUM 600MG + VIT D 400 IU TAB PO SCH (09:01)
[2017-01-22] MEDS: AMLODIPINE BESYLATE 5 MG TAB PO SCH (09:02)
[2017-01-22] MEDS: CHOLECALCIFEROL 1000 INTER.UNIT TAB PO SCH (09:02)
[2017-01-22] MEDS: HEPARIN SOD 5000 UNIT/0.5 ML CARP SQ SCH ×2 (09:04→15:50)
[2017-01-22] MEDS: BOOST BREEZE NUTRITION DRINK 1 BOX PO SCH (09:06)
[2017-01-22] MEDS: NEBIVOLOL HCL 5 MG TAB PO SCH (09:23)
--- NOTE | 2017-01-22 10:05 | Nephrology Progress Note ---
Nephrology Progress Note Date of Service: Jan 22, 2017. Subjective denies pain, dyspnea, change in voiding habits. ate minimal breakfast but states dislikes food. denies having carrot harvester or pcp in [place] but states that while she knows she is close to needing HD chronically plans to do it in [place]. Objective Date Time Temp Pulse Resp B/P (MAP) Pulse Ox O2 Delivery O2 Flow Rate FiO2 01/22/17 08:00 95 Room Air 01/22/17 07:26 36.7 71 18 163/70 (101) 94 Room Air 01/22/17 04:00 95 Room Air 01/22/17 03:07 36.9 68 19 150/61 (90) 95 Room Air 01/22/17 00:00 95 Room Air 01/21/17 23:08 36.7 75 19 160/72 (101) 95 Room Air 01/21/17 20:00 98 Room Air 01/21/17 19:31 36.9 77 22 169/79 (109) 98 Room Air 01/21/17 16:00 Room Air 01/21/17 15:51 36.6 73 22 148/70 (96) 98 Room Air 01/21/17 12:00 Room Air 01/21/17 11:02 36.5 68 20 162/72 (102) 97 Room Air 01/21/17 10:04 171/74 (106) Physical Exam: GENERAL: Elderly female who appears chronically ill. sitting up in chair on RA , nad HEAD, EYES, EARS, NOSE, AND THROAT: Normocephalic, atraumatic. Mucous membranes moist. mild periorbital edema NECK: Supple. LUNGS: Clear, bilateral breath sounds equal. No crackles or rub heard. diminished throughout mahnaz bases CARDIOVASCULAR: Regular rate and rhythm. No edema or murmur. ABDOMEN: Soft, nontender. No appreciable ascites noted. no belle BACK: no CVA tenderness. EXTREMITIES: No edema. NEUROLOGIC: No focal deficit noted. Awake, alert, oriented x3. SKIN: Normal color. no lesions Current Inpatient Medications Medications (Trade) Dose Ordered Sig/Robert Route Start Time Stop Time Status Last Admin Dose Admin Miscellaneous (Iv Fluids Completed) 1 ea PRN PRN N/A 01/20/17 03:45 01/20/18 03:44 Heparin Sodium (Porcine) (Heparin Sq 5000 Unit/0.5ml) 5,000 unit Q8H SQ 01/20/17 08:00 02/19/17 07:59 01/22/17 09:04 5,000 UNIT Acetaminophen (Tylenol Tab) 650 mg Q4H PRN PO 01/20/17 03:45 02/19/17 03:44 Ondansetron HCl (Zofran Inj) 4 mg Q6H PRN IV 01/20/17 03:45 02/19/17 03:44 Amlodipine Besylate (Norvasc Tab) 10 mg DAILY PO 01/20/17 09:00 02/19/17 08:59 01/22/17 09:02 10 MG Atorvastatin Calcium (Lipitor Tab) 20 mg HS PO 01/20/17 21:00 02/19/17 20:59 01/21/17 21:29 20 MG Multivitamins (Multivitamin Tab) 1 tab DAILY PO 01/20/17 09:00 02/19/17 08:59 01/22/17 09:01 1 TAB Sodium Bicarbonate (Sodium Bicarbonate Tab) 1,300 mg TID PO 01/20/17 09:00 02/19/17 08:59 01/22/17 09:01 1,300 MG Miscellaneous Information (Order Awaiting Action) 1 ea QS N/A 01/20/17 08:00 02/19/17 07:59 Nebivolol (Bystolic Tab) 5 mg DAILY PO 01/20/17 09:00 02/19/17 08:59 01/22/17 09:23 5 MG Calcium/Vitamin D (Caltrate Plus Tab) 1 tab BID PO 01/20/17 09:00 02/19/17 08:59 01/22/17 09:01 1 TAB Cholecalciferol (Vitamin D Tab) 2,000 inter.unit QAM PO 01/20/17 09:00 02/19/17 08:59 01/22/17 09:02 2,000 INTER.UNIT Hydralazine HCl (HydrALAZINE INJ) 10 mg Q6H PRN IV. 01/20/17 04:00 02/19/17 03:59 Miscellaneous Information (Pharmacy Consult) 1 ea UD PRN N/A 01/20/17 11:00 02/19/17 10:59 Miscellaneous Information (Pharmacy Consult) 1 ea UD PRN N/A 01/20/17 11:00 02/19/17 10:59 Ceftriaxone Sodium 2000 mg/ Dextrose 70 ml @ 140 mls/hr Q24H IV 01/21/17 11:00 01/27/17 10:59 01/21/17 10:01 140 MLS/HR Azithromycin 500 mg/Dextrose 255 ml @ 127.5 mls/ hr Q24H IV 01/21/17 12:00 01/27/17 11:59 01/21/17 10:46 127.5 MLS/HR Enteral Nutritional Formula (Boost Breeze Nutritional Drink) 1 box BID PO 01/20/17 21:00 02/19/17 20:59 01/22/17 09:06 1 BOX Last 24 Hours Test 01/22/17 05:22 01/22/17 05:25 Sodium Level 144 mmol/L Potassium Level 4.6 mmol/L Chloride Level 117 mmol/L Carbon Dioxide Level 19 mmol/L Anion Gap 8.0 mmol/L Blood Urea Nitrogen 49 mg/dl Creatinine 4.10 mg/dl Est Creatinine Clear Calc Drug Dose 8.2 ml/min Estimated GFR () 11.7 Estimated GFR (Non- 10.1 BUN/Creatinine Ratio 12.0 Random Glucose 81 mg/dl Calcium Level 7.5 mg/dl White Blood Count 3.85 K/uL Red Blood Count 3.20 M/uL Hemoglobin 9.0 g/dL Hematocrit 27.0 % Mean Corpuscular Volume 84.4 fL Mean Corpuscular Hemoglobin 28.1 pg Mean Corpuscular Hemoglobin Concent 33.3 g/dl RDW Standard Deviation 51.3 fL RDW Coefficient of Variation 16.5 % Platelet Count 94 K/uL Mean Platelet Volume 10.0 fL Assessment & Plan 76-year-old female with chronic kidney disease stage V not on hd, baseline creatinine 4.1 with severe anemia of chronic kidney disease despite Procrit now admitted with significant drop in hemoglobin. 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 Lives in [place]. 1. Chronic kidney disease V, not on HD For a patient with liver disease, low muscle mass, poor appetite and reported 15 pound weight loss she fulfills the criteria for chronic dialysis. Also w/ nephrotic range proteinuria. Also, it is complicated because she lives in [place]. This patient is very close to starting chronic dialysis which is significantly changes home life and states she will not do that here but only in [place]. Also states she has no nephro team there or PCP (though there is pcp in [place] listed on [facility] chart). -cont to hold IVF -recommend starting dialysis next few days but this will require decisions about where she will live/get chronic care -will try to contact her son later today on above; appreciate primary service and bilingual social worker help as well on this -Severe anemia of chronic kidney disease. She has very low hemoglobin despite Procrit every week, 4000 units and only recently started. s/p 2 units pRBC this admission. no evidence of bleeding. attributed to severe CKD related anemia and would likely benefit by starting dialysis versus close anemia clinic f/u at d/c -Hypertension. She had severely high blood pressure at the time of admission which pretty much rules out severe dehydration. It is not entirely clear that she was actually taking the medication like she is supposed to. After using all the medicine she was supposed to be taking her blood pressure is now normal. -added standing hydralazine -s/p liver transplant > -not on this yet per records <<>> not on our formulary; plan had been to ask family to bring this med; no evidence resumed it; pharmacy investigating; will alert primary as well
[2017-01-22] MEDS: CEFTRIAXONE SOD INJ 2000 MG in DEXTROSE 5% 50ML IV SCH (11:04)
[2017-01-22] MEDS: AZITHROMYCIN 500 MG / D5W 250 ML IV SCH ×2 (11:48)
[2017-01-22] MEDS ORDERED: HydrALAZINE 10 MG TAB PO SCH (14:00)
--- NOTE | 2017-01-22 18:23 | Progress Note ---
Medicine Progress Note Date & Time of Visit: Jan 22, 2017 at 18:18. Subjective Pt was seen and examined Lying in bed with no distress Pt said that she feels fine denies any chest pain, palpitation, dizziness and SOB Objective Last 8 Hrs Date Time Temp Pulse Resp B/P (MAP) Pulse Ox O2 Delivery O2 Flow Rate FiO2 01/22/17 16:16 36.6 71 18 138/68 (91) 96 Room Air 01/22/17 16:00 Room Air 01/22/17 12:00 Room Air 01/22/17 11:21 36.5 73 17 151/63 (92) 95 Room Air Physical Exam: General- No acute distress Head- atraumatic Eyes- PERRL, EOMI ENT- oropharynx clear Neck- supple, no JVD Lungs- clear to auscultation Heart- regular rhythm Abdomen- normal bowel sounds, soft Extremities- No calf tenderness Neuro- alert, oriented x 3, PERRL, EOMI Skin- warm & dry Laboratory Results: Last 24 Hours Test 01/22/17 05:22 01/22/17 05:25 Sodium Level 144 mmol/L Potassium Level 4.6 mmol/L Chloride Level 117 mmol/L Carbon Dioxide Level 19 mmol/L Anion Gap 8.0 mmol/L Blood Urea Nitrogen 49 mg/dl Creatinine 4.10 mg/dl Est Creatinine Clear Calc Drug Dose 8.2 ml/min Estimated GFR () 11.7 Estimated GFR (Non- 10.1 BUN/Creatinine Ratio 12.0 Random Glucose 81 mg/dl Calcium Level 7.5 mg/dl White Blood Count 3.85 K/uL Red Blood Count 3.20 M/uL Hemoglobin 9.0 g/dL Hematocrit 27.0 % Mean Corpuscular Volume 84.4 fL Mean Corpuscular Hemoglobin 28.1 pg Mean Corpuscular Hemoglobin Concent 33.3 g/dl RDW Standard Deviation 51.3 fL RDW Coefficient of Variation 16.5 % Platelet Count 94 K/uL Mean Platelet Volume 10.0 fL Assessment & Plan ANEMIA OF CHRONIC DISEASE : Recent started on Procrit Hgb on admission 6.7 S/P 2 Units of irradiated PRBC Asymptomatic Hgb today 9 Continue monitor CBC PNEUMONIA CXR showed patchy alveolar bibasilar and lateral left midlung opacities Asymptomatic Blood pending and sputum cultures showed possible contamination On Rocephin and Azithromycin repeat CXR showed interval improvement in bilateral airspace opacities Will discharge on Zithromax DEVEN ON CKD STAGE : Cr in worsened to 4. 7 Creatine improved to 4.1 Nephrology consulted , appreciate input Cont bicarb PO TID Pt has a follow up appt with Nephro this Wed. Will need to start working on AV Fistula Pt will need to HD soon WT LOSS 15 lb weight loss in last 3-4 months. Manager Of Pharmacy consult on board Speech eval appreciated -recommend dental soft diet pt report of having colonoscopy few yrs back was normal ( follows with physician in [place] ) LIVER TRANSPLANT STATUS on immunosuppressive therapy Stable HTN BP Elevated cont on Norvasc and Bystolic Was only taking bystolic at home Starting ydralazine 10 mg TID Will discharge on amlodipine 10mg, bystolic and hydralazine PRN Hydralazine ordered continue monitor BP DVT proph-Heparin subq Code status Full Code DISPOSITION PT/OT eval lives at home with son Follow up with Nephrology Dr. Lau on [place] Consultants: Nephrology Current Inpatient Medications: Current Inpatient Medications Medications (Trade) Dose Ordered Sig/Robert Route Start Time Stop Time Status Last Admin Dose Admin Miscellaneous (Iv Fluids Completed) 1 ea PRN PRN N/A 01/20/17 03:45 01/20/18 03:44 Heparin Sodium (Porcine) (Heparin Sq 5000 Unit/0.5ml) 5,000 unit Q8H SQ 01/20/17 08:00 02/19/17 07:59 01/22/17 15:50 5,000 UNIT Acetaminophen (Tylenol Tab) 650 mg Q4H PRN PO 01/20/17 03:45 02/19/17 03:44 Ondansetron HCl (Zofran Inj) 4 mg Q6H PRN IV 01/20/17 03:45 02/19/17 03:44 Amlodipine Besylate (Norvasc Tab) 10 mg DAILY PO 01/20/17 09:00 02/19/17 08:59 01/22/17 09:02 10 MG Atorvastatin Calcium (Lipitor Tab) 20 mg HS PO 01/20/17 21:00 02/19/17 20:59 01/21/17 21:29 20 MG Multivitamins (Multivitamin Tab) 1 tab DAILY PO 01/20/17 09:00 02/19/17 08:59 01/22/17 09:01 1 TAB Sodium Bicarbonate (Sodium Bicarbonate Tab) 1,300 mg TID PO 01/20/17 09:00 02/19/17 08:59 01/22/17 14:01 1,300 MG Nebivolol (Bystolic Tab) 5 mg DAILY PO 01/20/17 09:00 02/19/17 08:59 01/22/17 09:23 5 MG Calcium/Vitamin D (Caltrate Plus Tab) 1 tab BID PO 01/20/17 09:00 02/19/17 08:59 01/22/17 09:01 1 TAB Cholecalciferol (Vitamin D Tab) 2,000 inter.unit QAM PO 01/20/17 09:00 02/19/17 08:59 01/22/17 09:02 2,000 INTER.UNIT Hydralazine HCl (HydrALAZINE INJ) 10 mg Q6H PRN IV. 01/20/17 04:00 02/19/17 03:59 Miscellaneous Information (Pharmacy Consult) 1 ea UD PRN N/A 01/20/17 11:00 02/19/17 10:59 Miscellaneous Information (Pharmacy Consult) 1 ea UD PRN N/A 01/20/17 11:00 02/19/17 10:59 Ceftriaxone Sodium 2000 mg/ Dextrose 70 ml @ 140 mls/hr Q24H IV 01/21/17 11:00 01/27/17 10:59 01/22/17 11:04 140 MLS/HR Azithromycin 500 mg/Dextrose 255 ml @ 127.5 mls/ hr Q24H IV 01/21/17 12:00 01/27/17 11:59 01/22/17 11:48 127.5 MLS/HR Enteral Nutritional Formula (Boost Breeze Nutritional Drink) 1 box BID PO 01/20/17 21:00 02/19/17 20:59 01/22/17 09:06 1 BOX Hydralazine HCl (Apresoline Tab) 10 mg TID PO 01/22/17 14:00 02/21/17 13:59 01/22/17 14:01 10 MG Non-Formulary Medication (Non-Formulary Patient'S Own Med) 4 ea BID@0800,2000 PO 01/22/17 20:00 02/21/17 19:59
[2017-01-22] MEDS ORDERED: APR10 PO (18:28)
[2017-01-22] MEDS ORDERED: EPOE40007 SC (18:28)
[2017-01-22] MEDS ORDERED: AZIT500T PO (18:28)
--- NOTE | 2017-01-22 18:37 | Discharge Instructions ---
Discharge Instructions Date of Service Jan 22, 2017. Admission Reason for Admission: Dyspnea Discharge Discharge Diagnosis / Problem: ANEMIA OF CHRONIC DISEASE, CKD stage 5, Pneumonia, Hypertension Discharge Goals Goal(s): Decrease discomfort, Improve function, Improve disease control Activity Recommendations Activity Limitations: resume your previous activity (as tolerated) . Instructions / Follow-Up Instructions / Follow-Up Follow up with Nephrology Dr. Lau on Sun ( already has an appointment schedule) Follow up with your primary care provider in [place] ( please call to schedule appointment) Complete the antibiotic course of Zithromax fall precaution Follow a low salt diet Monitor blood pressure Monitor CBC and BMP Hydralazine started for High blood pressure Continue taking the amlodipine and nebivolol for high blood pressure Increase Procrit to 8000 unit weekly Current Hospital Diet Patient's current hospital diet: Renal Diet Discharge Diet Recommended Diet: Renal Diet Pending Studies Studies pending at discharge: no Medical Emergencies . Who to Call and When: Medical Emergencies: If at any time you feel your situation is an emergency, please call 911 immediately. . Non-Emergent Contact Non-Emergency issues call your: Primary Care Provider Call Non-Emergent contact if: you have any medication questions . . "Provider Documentation" section prepared by Perla Hood. . VTE Core Measure Inpt VTE Proph given/why not?: Unfractionated heparin SQ
[2017-01-22] MEDS ORDERED: AMLO10TA2 PO (18:40)
[2017-01-22] MEDS ORDERED: TACROLIMUS 0.5 MG CAP PO SCH (20:00)
[2017-01-22] MEDS ORDERED: EVEROLIMUS 0.5 MG PO SCH (20:00)
--- NOTE | 2017-01-25 00:03 | Discharge Summary ---
Discharge Summary Date of Service Jan 24, 2017. Discharge Summary Admission Date: Jan 20, 2017 at 01:21 Discharge Date: Jan 22, 2017 Discharge Disposition: Home Principal Diagnosis: ANEMIA OF CHRONIC DISEASE Secondary Diagnoses/Problems: DEVEN ON CKD STAGE V PNEUMONIA HX LIVER TRANSPLANT WT LOSS HTN Procedures: CHEST ONE VIEW PORTABLE CLINICAL HISTORY: Follow up study. COMPARISON STUDY: Chest radiograph January 19, 2017. FINDINGS: A small right and trace left pleural effusion are noted. There is no pneumothorax. There is no lobar consolidation. Bibasilar airspace opacities persist although have slightly improved. There is no radiographic evidence of pulmonary edema. Cardiomediastinal silhouette is stable. IMPRESSION: 1. Interval improvement in bilateral airspace opacities which favors improving pneumonia. 2. Small right and trace left pleural effusions. 3. No radiographic evidence of pulmonary edema. Electronically signed by: Milton Calloway M.D. 01/22/2017 7:18 AM Dictated Date/Time: 01/22/2017 7:16 AM Consultations: Nephrology Medication Reconciliation New Medications: Azithromycin (Zithromax) 500 Mg Tab 1 TAB PO DAILY for 3 Days, #3 TAB Hydralazine HCl (Hydralazine HCl) 10 Mg Tab 10 MG PO TID for 30 Days, #90 TAB Changed Medications: Epoetin Wale (Procrit) 4,000 Unit/Ml Inj 8000 UNITS SC WK, #4 (Changed from: 4000 UNITS) Continued Medications: Amlodipine Besylate (Norvasc) 10 Mg Tab 10 MG PO DAILY for 30 Days, #30 TAB (This prescription has been renewed) Atorvastatin (Lipitor) 20 Mg Tab 20 MG PO HS, TAB Calcium Carbonate-Vitamin D (Oscal 500/200 D-3) 1 Tab Tab 1 TAB PO DAILY Cholecalciferol (Vitamin D3) 2,000 Unit Cap 2000 UNITS PO DAILY, CAP Everolimus (Immunosuppressant) (Zortress) 0.25 Mg Tab 0.5 MG PO TID Ferrous Sulfate (Kp Ferrous Sulfate) 325 Mg Tab 325 MG PO DAILY, TAB Multivitamin (Multivitamin) Tab 1 TAB PO DAILY, TAB Nebivolol Hcl (Bystolic) 5 Mg Tab 5 MG PO DAILY, TAB Sodium Bicarbonate (Sodium Bicarbonate) 650 Mg Tab 1300 MG PO TID TAKE 2 TABLETS THREE TIMES DAILY. Admission Information HPI (per Admitting provider): 76 yo F presents with anemia and was directed to come to the hospital by her Investment Specialist because of low blood counts. Her H/H is 7.6/24 down from 8.9/27 on discharge from the hospital one month ago when she was hospitalized for anemia of CKD requiring 2 units of blood. She also was found to have an elevated creatinine of 4.7 up from 4.1 on discharge. She is not on HD but is followed by Dr. Lau as outpatient. She denies any symptoms since discharge except from some muscle soreness in her R breast, shoulder and back area that is not as "hard" and "strong" as it was a few days ago. She denies any SOB. She reports that her chest soreness wound get worse with touching/rubbing the area and with deep breathing. She denies any coughing or recent cold symptoms. She reports 15 lb weight loss over the past 4 months, not so much from nausea as she just doesn't have an appetite. However, she reports that she eats because she knows she has to. She reports a thickening of her saliva that causes her to feel bad but she does not report any dysphagia or odynophagia. I suggested that the thickened saliva may be from dehydration and she said that couldn't be possible because of how much water she drinks. She is a liver transplant patient who had a repeat liver transplant and is on chronic immunosuppression. She denies any fevers or chills. She reports some chronic dizziness for the past two months but states that with her blood counts lower, she has not noticed any worsening of her dizziness. Physical Exam (per Admitting): General Appearance: no apparent distress, + thin Head: normocephalic, atraumatic Eyes: normal inspection, sclerae normal ENT: hearing grossly normal Neck: no JVD, trachea midline Respiratory/Chest: lungs clear, normal breath sounds, no respiratory distress, no accessory muscle use Cardiovascular: regular rate, rhythm, no edema, no gallop, no JVD, no murmur , normal peripheral pulses Abdomen/GI: normal bowel sounds, non tender, soft Back: normal inspection, no CVA tenderness Extremities/Musculoskelatal: normal inspection, no pedal edema Neurologic/Psych: no motor/sensory deficits, alert, normal mood/affect, oriented x 3 Skin: normal color, warm/dry, no rash Hospital Course ANEMIA OF CHRONIC DISEASE : Recent started on Procrit Hgb on admission 6.7 S/P 2 Units of irradiated PRBC Asymptomatic Hgb today 9 Continue monitor CBC PNEUMONIA CXR showed patchy alveolar bibasilar and lateral left midlung opacities Asymptomatic Blood pending and sputum cultures showed possible contamination On Rocephin and Azithromycin repeat CXR showed interval improvement in bilateral airspace opacities Will discharge on Zithromax DEVEN ON CKD V STAGE : Cr in worsened to 4. 7 Creatine improved to 4.1 Nephrology consulted , appreciate input Cont bicarb PO TID Pt has a follow up appt with Nephro this Sun. Will need to start working on AV Fistula Pt will need to HD soon WT LOSS 15 lb weight loss in last 3-4 months. Product Assurance Engineer consult on board Speech eval appreciated -recommend dental soft diet pt report of having colonoscopy few yrs back was normal ( follows with physician in [place] ) HX LIVER TRANSPLANT on immunosuppressive therapy Stable HTN BP Elevated cont on Norvasc and Bystolic Was only taking bystolic at home Starting ydralazine 10 mg TID Will discharge on amlodipine 10mg, bystolic and hydralazine PRN Hydralazine ordered continue monitor BP DVT proph-Heparin subq Code status Full Code DISPOSITION PT/OT eric lives at home with son Follow up with Nephrology Dr. Lau on [place] Total time spent on discharge = 35 MINUTES This includes examination of the patient, discharge planning, medication reconciliation, and communication with other providers. Discharge Instructions Discharge Instructions Date of Service Jan 22, 2017. Admission Reason for Admission: Dyspnea Discharge Discharge Diagnosis / Problem: ANEMIA OF CHRONIC DISEASE, CKD stage 5, Pneumonia, Hypertension Discharge Goals Goal(s): Decrease discomfort, Improve function, Improve disease control Activity Recommendations Activity Limitations: resume your previous activity (as tolerated) . Instructions / Follow-Up Instructions / Follow-Up Follow up with Nephrology Dr. Lau on [place] ( already has an appointment schedule) Follow up with your primary care provider in [place] ( please call to schedule appointment) Complete the antibiotic course of Zithromax fall precaution Follow a low salt diet Monitor blood pressure Monitor CBC and BMP Hydralazine started for High blood pressure Continue taking the amlodipine and nebivolol for high blood pressure Increase Procrit to 8000 unit weekly Current Hospital Diet Patient's current hospital diet: Renal Diet Discharge Diet Recommended Diet: Renal Diet Pending Studies Studies pending at discharge: no Medical Emergencies . Who to Call and When: Medical Emergencies: If at any time you feel your situation is an emergency, please call 911 immediately. . Non-Emergent Contact Non-Emergency issues call your: Primary Care Provider Call Non-Emergent contact if: you have any medication questions . . "Provider Documentation" section prepared by Perla Hood. . VTE Core Measure Inpt VTE Proph given/why not?: Unfractionated heparin SQ
== END 2017-01-22 19:20 | disposition home or self-care (01) ==
LOC: C.EDB 22:41 → C.2T 01-20 01:21 → ENRESERV 01-20 01:35 → C.2T 01-20 02:45
PROVIDERS: ADMIT Hospitalist; ATTEND Internal Medicine
DX: R06.00 Dyspnea, unspecified (principal); D63.1 Anemia in chronic kidney disease; I12.0 Hypertensive chronic kidney disease with stage 5 chronic kidney disease or end stage renal disease; N18.5 Chronic kidney disease, stage 5; J18.9 Pneumonia, unspecified organism; N17.9 Acute kidney failure, unspecified; R63.4 Abnormal weight loss; M81.0 Age-related osteoporosis without current pathological fracture; E78.5 Hyperlipidemia, unspecified; Z94.4 Liver transplant status

== ENCOUNTER 2018-06-03 10:30 | Inpatient (IN) ==
[2018-06-03] MEDS ORDERED: SODIUM CHLORIDE 0.9% 500 ML IV STA (10:59)
[2018-06-03] MEDS ORDERED: ONDANSETRON INJ 2 MG/ML 2 ML VIAL IV STA (10:59)
[2018-06-03] MEDS: MoRPHine SULFATE 2 MG/ML CARP IV PRN ×3 (11:30→17:22)
[2018-06-03 11:40] LABS: Basophils # (auto) 0.03 K/uL (0-0.2); Basophils % (auto) 0.6 %; Eosinophils # (auto) 0.18 K/uL (0-0.5); Eosinophils % (auto) 3.4 %; Hematocrit (blood only) 34.9 % (37-47); Hemoglobin 11.2 g/dL (12.0-16.0); Immature Granulocytes # (auto) 0.02 K/uL (0.00-0.02); Immature Granulocytes % (auto) 0.4 %; Lymphocytes % (auto) 26.8 %; Mean Corpuscular Hgb Conc 32.1 g/dL (32-36); Mean Corpuscular Volume 90.2 fL (80-100); Mean Platelet Volume 9.9 fL (7.4-10.4); Monocytes % (auto) 9.6 %; Neutrophils # (auto) 3.09 K/uL (1.4-6.5); Neutrophils % (auto) 59.2 %; Platelet Count 150 K/uL (130-400); RDW Coefficient of Variation 15.8 % (11.5-14.5); RDW Standard Deviation 52.1 fL (36.4-46.3); Red Blood Count 3.87 M/uL (4.2-5.4); White Blood Count 5.22 K/uL (4.8-10.8)
--- NOTE | 2018-06-03 11:53 | XRay Report ---
XR chest 1V portable HISTORY: 78 years-old Female r cp acute atypical chest pain COMPARISON: Chest radiograph 01/22/2017 TECHNIQUE: Portable AP view of the chest FINDINGS: Cardiac silhouette is mildly enlarged, unchanged. Calcification of the thoracic aortic arch. Chronic mild right hemidiaphragmatic elevation with trace bilateral pleural effusions. Subsegmental bibasilar opacities suggest atelectasis. Mild pulmonary vascular congestion without overt pulmonary edema. No pneumothorax. Degenerative changes of the shoulders and spine. Surgical clips project about the left axilla and lef t breast. IMPRESSION: 1. Cardiomegaly without overt pulmonary edema. 2. Mild chronic right hemidiaphragm elevation. 3. Trace bilateral pleural effusions. The above report was generated using voice recognition software. It may contain grammatical, syntax o r spelling errors. Electronically signed by: Mikey Montgomery M.D. 06/03/2018 11:51 AM
[2018-06-03 11:55] LABS: INR 1.1 (0.9-1.1); Partial Thromboplastin Time 24.7 Seconds (21.0-31.0); Prothrombin Time 11.4 Seconds (9.0-12.0)
[2018-06-03 12:09] LABS: Alanine Aminotransferase 25 U/L (12-78); Albumin Globulin Ratio 0.6 (0.9-2); Albumin Level 2.9 gm/dl (3.4-5.0); Alkaline Phosphatase 172 U/L (45-117); Aspartate Aminotransferase 23 U/L (15-37); BUN Creatinine Ratio 12.3 (10-20); Bilirubin,Total 0.6 mg/dl (0.2-1); Blood Urea Nitrogen 66 mg/dl (7-18); Calcium 9.5 mg/dl (8.5-10.1); Carbon Dioxide 28 mmol/L (21-32); Chloride 102 mmol/L (98-107); Est GFR (African American) 8.4; Est GFR (Non-African American) 7.2; Globulin 4.7 gm/dl (2.5-4.0); Glucose 80 mg/dl (70-99); Magnesium 2.8 mg/dl (1.8-2.4); Potassium 5.5 mmol/L (3.5-5.1); Sodium 137 mmol/L (136-145); Total Protein 7.6 gm/dl (6.4-8.2)
--- NOTE | 2018-06-03 13:02 | CT Scan Report ---
ABDOMEN AND PELVIS CT WITHOUT CONTRAST HISTORY: Acute right flank pain with severe low back pain r flank pain TECHNIQUE: Multiaxial CT images of the abdomen and pelvis were performed without contrast. A dose lo wering technique was utilized adhering to the principles of ALARA. COMPARISON STUDY: CT lumbar spine of same day. FINDINGS: Trace bilateral pleural effusions with small pericardial effusion. Moderate multichamber cardiac enla rgement with coronary arterial calcifications. Subsegmental bibasilar groundglass densities and linea r consolidation suggest probable atelectasis. No pneumatosis or pneumoperitoneum. Evaluation of the solid abdominal organs is limited without the use of IV contrast. Within the limita tions of the exam, the liver, spleen, pancreas and adrenal glands are unremarkable. Calcification of the celiac trunk and common hepatic arteries with moderate calcification of the aortoiliac vasculatur e. Moderate cortical thinning about the bilateral kidneys, left greater than right. No renal calculi or obstructive uropathy. Mild urinary bladder distention. The ureters appear unremarkable. Vascular c alcifications about the uterus. No adnexal mass lesions. No adenopathy identified. Mild wall thickening about the proximal mid gastric lumen is likely secondary to partial distention. There is no small bowel obstruction. Anastomotic suture is noted about small bowel within the left lo wer quadrant abdomen. Moderate volume of formed colonic stool suggests constipation. The appendix is noted within the abdominal right lower quadrant and is air and stool-filled without evidence of acute inflammation. There are several ventral abdominal wall hernias noted including a new infraumbilical hernia containing fat with diastases 1.8 cm. Fat filled suprapubic ventral abdominal wall hernias not ed containing mesenteric fat. Mild inflammation within this region is noted adjacent to the anterior urinary bladder dome, diastases measuring up to 3.2 x 2.5 cm. Demineralized appearance of the bones. Multilevel spondylitic spurring with facet arthropathy. Healed remote right pelvic bone fractures. 25% anterior endplate compression deformity of the L4 vertebral body with 4 mm retropulsion about the superior aspect of the posterior endplate. Age-indeterminate giordano perior endplate compression deformity of L5 of less than 20%. Additionally, there is minimal paravert ebral edema at this level with mild central canal stenosis. IMPRESSION: 1. 25% anterior endplate compression deformity of the L4 vertebral body is technically age-indetermin ate however thought to be either acute or subacute in nature with 4 mm retropulsion resulting in mild central canal stenosis. 2. Age-indeterminate superior endplate compression deformity of L5 of less than 20%. 3. Trace pleural effusions with small pericardial effusion. 4. Suggested constipation without bowel obstruction or focal bowel wall thickening. 5. Cardiomegaly. 6. Multiple ventral abdominal wall hernias as above. 7. Additional incidental findings as above. Electronically signed by: Mikey Montgomery M.D. 06/03/2018 1:00 PM
--- NOTE | 2018-06-03 13:03 | CT Scan Report ---
CT lumbar spine wo con CLINICAL HISTORY: 78 years-old Female presenting with back pain, severe, ho fx. TECHNIQUE: Multidetector CT of the lumbar spine was performed without the use of intravenous contrast . IV contrast: None. One or more dose lowering techniques were used consistent with the principles of ALARA (as low as reasonably achievable), including automatic exposure control, mA or kV adjustment t o individual patient size, and/or use of iterative reconstruction. COMPARISON: None. CT DOSE (mGy.cm): The estimated cumulative dose is 261.42 mGy.cm. FINDINGS: Brief Writer topogram: Unremarkable. Normal lumbar lordosis. Vertebral body height loss with superior endplate compression and mild fragme ntation of L4. There may be trace retropulsion of the posterior superior cortex of the vertebral body mildly effacing the spinal canal though this could be due to a disc osteophyte complex. Trace verteb ral body height loss of L5 may also be present. Remaining vertebral bodies demonstrate normal height and alignment. Intervertebral disc heights preserved. Trace degenerative change most significant at L 3-4 as mentioned. Mild facet arthropathy. Trace infiltration in the paraspinal soft tissues of the le joanne of L4 may be present. Atherosclerosis noted. Visualized portion of the sacrum grossly intact. Ost eopenia. IMPRESSION: 1. Fracture deformity of L4 and potentially L5. Acute compression fractures are not excluded. Consid er MRI for violation for bony edema to better discern acuity. Electronically signed by: Maico Bhatia M.D. 06/03/2018 1:02 PM
[2018-06-03 13:43] LABS: Appearance Urine Clear (Clear); Bacteria Urine Automated 1+ (Negative); Bilirubin Urine Negative (Negative); Color Urine Yellow; Glucose Urine UA Negative (Negative); Ketones Urine Negative (Negative); Leukocyte Esterase Urine 1+ (Negative); Nitrite Urine Negative (Negative); Specific Gravity Urine 1.011 (1.000-1.030); Urobilinogen Urine Negative (Negative); pH Urine >= 9.0 (4.5-7.5)
[2018-06-03 13:52] LABS: Protein Urine 1+ (Negative)
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
[2018-06-03 16:24] LABS: Hepatitis B Surface Antibody Immune
[2018-06-03] MEDS ORDERED: SODIUM CHLORIDE 0.9% 1000ML 1,000 ML IV PRN (16:27)
[2018-06-03] MEDS ORDERED: HEPARIN SOD (PORCINE) 1000 UNIT/ML 10 ML VIAL IV ONE (16:27)
[2018-06-03] MEDS ORDERED: HEPARIN SOD (PORCINE) 1000 UNIT/ML 10 ML VIAL IV SCH (16:30)
[2018-06-03 16:35] LABS: Hepatitis B Surface Antigen Neg (Neg)
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
[2018-06-03] MEDS ORDERED: HYDROmorphone INJ 1 MG/ML SYRINGE IV PRN (17:42)
[2018-06-03] MEDS ORDERED: ACETAMINOPHEN 325 MG TAB PO PRN (17:42)
[2018-06-03] MEDS ORDERED: ONDANSETRON INJ 2 MG/ML 2 ML VIAL IV PRN (17:42)
[2018-06-03] MEDS ORDERED: POLYETHYLENE (MIRALAX) 17 GM PACK PO PRN (17:42)
[2018-06-03] MEDS: FERROUS SULFATE 325 MG TAB PO SCH (22:25)
[2018-06-03] MEDS: ATORVASTATIN 20 MG TAB PO SCH (22:25)
[2018-06-03] MEDS: HEPARIN SOD 5,000 UNIT/0.5 ML VIAL SQ SCH (22:25)
[2018-06-03] MEDS: CHOLECALCIFEROL 1,000 UNITS TAB PO SCH (22:25)
[2018-06-03] MEDS: HydrALAZINE 10 MG TAB PO SCH (22:25)
[2018-06-03] MEDS: CALCIUM 600MG + VIT D 400 IU TAB PO SCH (22:25)
[2018-06-04 07:06] LABS: Hemoglobin 11.2 g/dL (12.0-16.0); Mean Platelet Volume 9.6 fL (7.4-10.4); Platelet Count 145 K/uL (130-400); RDW Coefficient of Variation 15.7 % (11.5-14.5); RDW Standard Deviation 51.9 fL (36.4-46.3); Red Blood Count 3.89 M/uL (4.2-5.4)
[2018-06-04 07:43] LABS: BUN Creatinine Ratio 8.2 (10-20); Calcium 8.5 mg/dl (8.5-10.1); Creatinine Clr Calc Pharmacy 9.7 ml/min; Est GFR (African American) 14.7; Est GFR (Non-African American) 12.7; Potassium 4.6 mmol/L (3.5-5.1)
[2018-06-04] MEDS: ASCORBIC ACID 500 MG TAB PO SCH (08:55)
[2018-06-04] MEDS: NEPHROCAPS PO SCH (08:56)
[2018-06-04] MEDS: CALCIUM 600MG + VIT D 400 IU TAB PO SCH ×2 (08:56→20:02)
[2018-06-04] MEDS: HEPARIN SOD 5,000 UNIT/0.5 ML VIAL SQ SCH ×2 (08:57→20:03)
--- NOTE | 2018-06-04 10:10 | Magnetic Resonance Report ---
MR lumbar spine wo con CLINICAL HISTORY: Persistent back and leg pain. ABNORMAL CT SCAN. AGE-INDETERMINATE FRACTURE. TECHNIQUE: Sagittal and axial T1, T2 and STIR images were obtained. COMPARISON STUDY: CT scan of the lumbar spine dated 06/03/2018 OBSERVATIONS: There is L4 marrow edema. There is a superior endplate L4 deformity. Marrow edema is felt to be secon venessa to an acute/subacute compression fracture. There is no L5 marrow edema, and the L5 endplate defo rmity is felt to be old. The L4 vertebra has lost approximately 30% of its height. L1-2: There is a minor circumferential disc bulge. There is no spinal or foraminal stenosis L2-3: No disc protrusions or extrusions. No evidence of spinal canal or neural foraminal compromise. L3-4: There is a mild circumferential disc bulge. There is mild transverse spinal canal narrowing. Th ere is no significant foraminal stenosis. L4-5: There is a mild circumferential disc bulge. There is mild trigone or spinal canal narrowing. Th ere is no significant foraminal analysis. L5-S1: There is a minimal circumferential disc bulge. There is no significant spinal or foraminal yamilet nosis. The conus medullaris and cauda equina appear normal. IMPRESSION: 1. Mild multilevel spondylitic changes. No evidence of moderate or severe spinal stenosis. No signifi cant foraminal narrowing 2. The superior endplate compression fracture of the L4 vertebral body as described on the recent CT scan demonstrates marrow edema indicating an acute/subacute timeframe. Electronically signed by: Dl Chaves M.D. 06/04/2018 10:09 AM
[2018-06-04] MEDS ORDERED: HydrALAZINE 10 MG TAB PO PRN (10:19)
--- NOTE | 2018-06-04 10:58 | Orthopedic Consultation ---
Date of Consultation June 04, 2018 Assessment & Plan (1) Compression fx, lumbar spine: At this time patient clearly has an acute compression fracture at L4. She been given a rigid brace in the past which she states is more uncomfortable than beneficial. She does have an elastic brace which is completely reasonable for trial. We discussed treatment plan which at this time would include continued pain control occupational therapy physical therapy to help her with transfers and ambulation activities of daily living. If she fails to improve over the next week we may ultimately require a kyphoplasty at L4. At this time I would very much like to avoid this in light of her significant health history and osteoporosis. It would increase the risk for adjacent level fractures. Patient understands and agrees. Present on Admission?: Yes History of Present Illness Reason for Consultation: Back pain Attending Physician: Rashi Wise MD History of Present Illness Old female presents to the hospital with acute back pain. CAT scan and subsequent MRI confirmed acute compression fracture L4. She denies any precipitating trauma fall or event. She has been given a brace previously for back pain and a fracture months ago. She states this brace is very uncomfortable and she does not like to wear it. At this time she denies any radicular component to her pain. She denies any numbness or tingling into the lower extremities. She is comfortable when lying in bed. Transfers are quite uncomfortable for her. She is able to ambulate. Allergies Allergy/AdvReac Type Severity Reaction Status Date / Time No Known Allergies Allergy Unverified 06/03/18 12:18 Home Medications Home Medications Medication Instructions Recorded Confirmed Type ascorbic acid (vitamin C) [Vitamin 1,000 mg PO QDL 06/03/18 06/03/18 History C] atorvastatin 20 mg PO HS 06/03/18 06/03/18 History calcium carbonate-vitamin D3 1 tab PO BID 06/03/18 06/03/18 History [Calcium 500 + D] cholecalciferol (vitamin D3) 2,000 unit PO HS 06/03/18 06/03/18 History [Vitamin D3] everolimus (immunosuppressive) 2 mg PO BID 06/03/18 06/03/18 History [Zortress] ferrous sulfate 325 mg PO HS 06/03/18 06/03/18 History hydralazine 10 mg PO HS 06/03/18 06/03/18 History multivitamin 1 tab PO QAM 06/03/18 06/03/18 History nebivolol [Bystolic] 10 mg PO QAM 06/03/18 06/03/18 History Patient History Medical History HTN (hypertension) (Chronic) HLD (hyperlipidemia) (Chronic) Osteoporosis (Chronic) Anemia (Chronic) Dyspnea History of renal dialysis Hx of compression fracture of spine Surgical History Liver transplant status (Chronic) S/P tubal ligation (Chronic) H/O detached retina repair (Chronic) S/P cataract extraction and insertion of intraocular lens (Chronic) Family History Other Family history non-contributory Social History marital status: Single Current Living Situation: Family Current Living Situation Comment: lives with daughter current occupational status: retired Other Information That Helps Us Care for You: No Feels Safe at Home: Yes Safety Concerns: Feels Safe At This Time Smoking Status: Never smoker Do You Dip or Chew Tobacco: No Second Hand Exposure: No Tobacco Cessation Education Requested by Patient: No Hx Alcohol Use: No Hx Substance Use: No Beliefs That Will Affect Care: None Preferred Language: Stateless Communication Ability: Effective Manager [place] Required: No Physical Exam 2 Vital Signs (Past 24 Hours): Last Vital Signs Temp 36.8 C 06/04/18 07:27 Pulse 79 06/04/18 07:27 Resp 16 06/04/18 07:27 BP 181/85 H 06/04/18 07:27 Pulse Ox 95 06/04/18 09:47 Physical Exam: On exam she is neurologically intact to testing lower extremities. Sensory symmetric and intact. She does have marked discomfort with transfers and rolling in bed. _ (1) Compression fx, lumbar spine Encounter type: initial encounter Fracture healing: Fracture type: closed Lumbar vertebra fracture level: L4 Qualified Code(s): S32.040A - Wedge compression fracture of fourth lumbar vertebra, initial encounter for closed fracture
--- NOTE | 2018-06-04 12:17 | Nephrology Progress Note ---
Date of Service June 04, 2018 Assessment & Plan (1) ESRD (end stage renal disease) on dialysis: -- Volume status and electrolyte balance are acceptable. No acute indication for HD today. Will schedule next HD for the am -- Recommend dialysis diet. Will order Nephrocap one daily -- Will recheck PRP in am (2) Compression fx, lumbar spine: -- Await Ortho input -- Patient had been on Vitamin D3 5,000 units daily as outpatient -- Last PTH on 05/01/18 was low at 57 (3) HTN (hypertension): -- Blood pressure is elevated today due to back discomfort -- Continue Nebivolol and Hydralazine (4) Hx of liver transplant: -- On Everolimus 0.5 mg 4 tablets BID as outpatient Subjective Ms. Li was seen & examined in her hospital room this morning. She was dialyzed yesterday for 2 L UF. There were no complications and she remained hemodynamically stable throughout her treatment. Ms. Li reports continued back discomfort. She finds it very uncomfortable to lie flat or remain seated upright for prolonged periods of time. She is able to ambulate without difficulty. Eyes: no diplopia Ear, Nose, Mouth, Throat: no dizziness Respiratory: no dyspnea on exertion Cardiovascular: no chest pain Gastrointestinal: no abdominal pain Genitourinary (Female): no dysuria Physical Exam 2 Vital Signs (Past 24 Hours): Last Vital Signs Temp 36.5 C 06/04/18 11:27 Pulse 73 06/04/18 11:27 Resp 18 06/04/18 11:27 BP 195/76 H 06/04/18 11:27 Pulse Ox 95 06/04/18 09:47 Eyes: PERRL, conjunctivae normal, anicteric sclerae Neck: trachea midline, no thyromegaly Respiratory: normal respiratory effort, lungs clear to auscultation Cardiovascular: RRR, no murmur, no edema Extremities: + AV fistula Gastrointestinal (Abdomen): normal bowel sounds, soft, nontender, no hepatosplenomegaly Results & Data Laboratory Results Laboratory Tests 06/04/18 06/04/18 06:27 06:27 WBC 4.70 L Hgb 11.2 L Hct 35.0 L Plt Count 145 Sodium 135 L Potassium 4.6 D Chloride 103 Carbon Dioxide 25 BUN 28 H D Creatinine 3.35 H D Glucose 62 L _ (1) Compression fx, lumbar spine Encounter type: initial encounter Fracture healing: Fracture type: closed Lumbar vertebra fracture level: L4 Qualified Code(s): S32.040A - Wedge compression fracture of fourth lumbar vertebra, initial encounter for closed fracture
[2018-06-04] MEDS: guaiFENesin 600 MG TABCR PO SCH ×2 (13:00→20:02)
[2018-06-04] MEDS ORDERED: METOPROLOL TARTRATE 25 MG TAB PO ONE (13:30)
--- NOTE | 2018-06-04 15:09 | Hospitalist Progress Note ---
Date of Service June 04, 2018 Assessment & Plan (1) Compression fx, lumbar spine: Patient cannot recall a specific injury, pain started three days ago. Has pain whenever she changes position, cannot sit upright for long. - Seen by ortho-spine on 06/04 with plan for conservative management for now. 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 Stable since then, follows with her specialist. - Will get everolimus from home and restart as soon as able. - Trend CMP (3) Osteoporosis: Likely contributed to her compression fracture. No fall or recent injury. - Continue with Vitamin D and calcium supplementation (4) ESRD (end stage renal disease) on dialysis: Has left UE fistula with good thrill and bruit on exam. Got HD on 06/03. On HD since 2017. - Appreciate nephrology help - Plan for HD on 06/05 - Continue Nephro-Katarina (5) HTN (hypertension): BP up slightly, due to pain. - Switched nebivolol to metoprolol 50mg BID - Only takes hydralazine QHS as home med - Hydralazine 10mg PO Q8h PRN for SBP > 180 or DBP > 110 (6) HLD (hyperlipidemia): - Continue atorvastatin (7) DVT prophylaxis: Heparin 5000 units Q12h Subjective 78yo F w/ hx of liver transplant and HTN who presents with compression fracture. Overall, doing well. Reports pain with sitting and twisting, but overall doing ok. Feels the pain is currently bearable, but would like to work with PT/OT for possible SNF. Reports no fevers/chills, chest pain, shortness of breath, abdominal pain, nausea, or vomiting. Physical Exam 2 Vital Signs (Past 24 Hours): Last Vital Signs Temp 36.5 C 06/04/18 11:27 Pulse 73 06/04/18 11:27 Resp 18 06/04/18 11:27 BP 183/81 H 06/04/18 12:37 Pulse Ox 95 06/04/18 09:47 Constitutional: WD/WN, vitals as above Eyes: PERRL, conjunctivae normal, anicteric sclerae ENMT: external ear and nose normal, oropharynx normal Neck: trachea midline, no thyromegaly Respiratory: normal respiratory effort, lungs clear to auscultation Cardiovascular: RRR, no murmur, no edema Gastrointestinal (Abdomen): normal bowel sounds, soft, nontender, no hepatosplenomegaly Musculoskeletal: Head/Neck/Chest: normocephalic and head atraumatic Spine: + limited thoraco-lumbar ROM (severe pain with minimal movement) Extremities : + limited ROM of extremities (moving legs causes back pain); no muscle atrophy , no cyanosis and no clubbing Skin: no rashes, warm and dry Neurologic: patellar DTR's 2+ bilat, sensation intact and PERRL, EOMI, accommodation nl, no face palsy, no dysarthria Psychiatric: A+Ox3, euthymic affect Lymphatic: no cervical or axillary lymphadenopathy _ (1) Compression fx, lumbar spine Encounter type: initial encounter Fracture healing: Fracture type: closed Lumbar vertebra fracture level: L4 Qualified Code(s): S32.040A - Wedge compression fracture of fourth lumbar vertebra, initial encounter for closed fracture
[2018-06-04] MEDS: OXYCODONE HCL IR 5 MG TAB (IMMEDIATE RELEASE) PO PRN (15:14)
[2018-06-04] MEDS: METOPROLOL TARTRATE 25 MG TAB PO SCH (20:02)
[2018-06-04] MEDS: DOCUSATE SODIUM/SENNA 50/8.6MG TAB PO SCH (20:03)
[2018-06-04] MEDS: CHOLECALCIFEROL 1,000 UNITS TAB PO SCH (20:03)
[2018-06-04] MEDS: HydrALAZINE 10 MG TAB PO SCH (20:03)
[2018-06-04] MEDS: FERROUS SULFATE 325 MG TAB PO SCH (20:03)
[2018-06-04] MEDS: ATORVASTATIN 20 MG TAB PO SCH (20:03)
[2018-06-04] MEDS: EVEROLIMUS 0.5 MG PO SCH (22:12)
[2018-06-05] MEDS ORDERED: HEPARIN SOD (PORCINE) 1000 UNIT/ML 10 ML VIAL IV ONE (06:00)
[2018-06-05] MEDS ORDERED: SODIUM CHLORIDE 0.9% 1000ML 1,000 ML IV PRN (06:00)
[2018-06-05 06:39] LABS: Hematocrit (blood only) 33.8 % (37-47); Hemoglobin 10.8 g/dL (12.0-16.0); Mean Corpuscular Volume 88.9 fL (80-100); Mean Platelet Volume 9.6 fL (7.4-10.4); Platelet Count 144 K/uL (130-400); RDW Coefficient of Variation 15.5 % (11.5-14.5); RDW Standard Deviation 50.1 fL (36.4-46.3); White Blood Count 5.82 K/uL (4.8-10.8)
[2018-06-05 07:25] LABS: BUN Creatinine Ratio 11.2 (10-20); Calcium 8.7 mg/dl (8.5-10.1); Creatinine Clr Calc Pharmacy 6.8 ml/min; Est GFR (African American) 9.6; Est GFR (Non-African American) 8.3
[2018-06-05] MEDS: DOCUSATE SODIUM/SENNA 50/8.6MG TAB PO SCH ×2 (08:27→21:09)
[2018-06-05] MEDS: CALCIUM 600MG + VIT D 400 IU TAB PO SCH ×2 (08:28→21:09)
[2018-06-05] MEDS: NEPHROCAPS PO SCH (08:28)
[2018-06-05] MEDS: METOPROLOL TARTRATE 25 MG TAB PO SCH ×2 (08:28→21:08)
[2018-06-05] MEDS: guaiFENesin 600 MG TABCR PO SCH ×2 (08:28→21:07)
[2018-06-05] MEDS: EVEROLIMUS 0.5 MG PO SCH ×2 (08:29→21:09)
[2018-06-05] MEDS: HEPARIN SOD 5,000 UNIT/0.5 ML VIAL SQ SCH ×2 (08:31→21:07)
--- NOTE | 2018-06-05 11:09 | Nephrology Progress Note ---
Date of Service June 05, 2018 Assessment & Plan (1) ESRD (end stage renal disease) on dialysis: -- HD today. Orders have been entered into EMR and HD RN notified -- Recommend dialysis diet. Will order Nephrocap one daily -- Will recheck PRP in am (2) Compression fx, lumbar spine: -- Consider pain management evaluation or reconsultation w/ Orthopedics due to persistent back pain -- Patient had been on Vitamin D3 5,000 units daily as outpatient -- Last PTH on 05/01/18 was low at 57 (3) HTN (hypertension): -- Blood pressure is elevated today due to back discomfort -- Continue Nebivolol and Hydralazine (4) Hx of liver transplant: -- On Everolimus 0.5 mg 4 tablets BID as outpatient Subjective Ms. Li was seen & examined in her hospital room this morning. She complains of continued back discomfort. She notes that any movement exacerbates her pain. She c/o constipation related to analgesic therapy Physical Exam 2 Vital Signs (Past 24 Hours): Last Vital Signs Temp 37.0 C 06/05/18 07:25 Pulse 74 06/05/18 07:25 Resp 14 06/05/18 07:25 BP 161/74 H 06/05/18 07:25 Pulse Ox 94 06/05/18 07:25 Eyes: PERRL, conjunctivae normal, anicteric sclerae Neck: trachea midline, no thyromegaly Respiratory: normal respiratory effort, lungs clear to auscultation Cardiovascular: RRR, no murmur, no edema Extremities: + AV fistula Gastrointestinal (Abdomen): normal bowel sounds, soft, nontender, no hepatosplenomegaly Results & Data Laboratory Results Laboratory Tests 06/05/18 06/05/18 06:22 06:22 WBC 5.82 Hgb 10.8 L Hct 33.8 L Plt Count 144 Sodium 137 Potassium 5.0 Chloride 105 Carbon Dioxide 27 BUN 53 H D Creatinine 4.77 H* D Glucose 88 _ (1) Compression fx, lumbar spine Encounter type: initial encounter Fracture healing: Fracture type: closed Lumbar vertebra fracture level: L4 Qualified Code(s): S32.040A - Wedge compression fracture of fourth lumbar vertebra, initial encounter for closed fracture
[2018-06-05] MEDS: ASCORBIC ACID 500 MG TAB PO SCH (12:47)
[2018-06-05] MEDS: OXYCODONE HCL IR 5 MG TAB (IMMEDIATE RELEASE) PO PRN (13:16)
[2018-06-05] MEDS ORDERED: NAPROXEN 250 MG TAB PO ONE (14:30)
--- NOTE | 2018-06-05 16:09 | Hospitalist Progress Note ---
Date of Service June 05, 2018 Assessment & Plan (1) Compression fx, lumbar spine: Patient cannot recall a specific injury, pain started three days prior to admission. Has pain whenever she changes position, cannot sit upright for long. - Seen by ortho-spine on 06/04 with plan for conservative management for now. - Pain control - PT/OT - Likely discharge to rehab - On 06/05, added standing naproxen which I discussed with Dr. Hyatt. Tylenol and oxycodone PRN are not adequately controlling the pain. 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 Stable since then, follows with her specialist. - Got everolimus from home and restarted on 06/04 - Trend CMP (3) Osteoporosis: Likely contributed to her compression fracture. No fall or recent injury. - Continue with vitamin D and calcium supplementation (4) ESRD (end stage renal disease) on dialysis: Has left UE fistula with good thrill and bruit on exam. Got HD on 06/03. On HD since 2017. - Appreciate nephrology help - HD on 06/05 - Continue Nephro-Katarina (5) HTN (hypertension): BP up slightly, due to pain. - Switched nebivolol to metoprolol 50mg BID - Only takes hydralazine QHS as home med - Hydralazine 10mg PO Q8h PRN for SBP > 180 or DBP > 110 (6) HLD (hyperlipidemia): - Continued atorvastatin (7) DVT prophylaxis: Heparin 5000 units Q12h Subjective 78yo F w/ hx of liver transplant and HTN who presents with compression fracture. Reports worse pain today than yesterday. Still with pain standing/walking, twisting, and sitting. Reports no fevers/chills, chest pain, shortness of breath , abdominal pain, nausea, or vomiting. Physical Exam 2 Vital Signs (Past 24 Hours): Last Vital Signs Temp 36.5 C 06/05/18 15:39 Pulse 77 06/05/18 15:39 Resp 14 06/05/18 15:39 BP 123/64 06/05/18 15:39 Pulse Ox 95 06/05/18 15:39 Constitutional: WD/WN, vitals as above Eyes: PERRL, conjunctivae normal, anicteric sclerae ENMT: external ear and nose normal, oropharynx normal Neck: trachea midline, no thyromegaly Respiratory: normal respiratory effort, lungs clear to auscultation Cardiovascular: RRR, no murmur, no edema Gastrointestinal (Abdomen): normal bowel sounds, soft, nontender, no hepatosplenomegaly Musculoskeletal: Head/Neck/Chest: normocephalic and head atraumatic Spine: + limited thoraco-lumbar ROM (severe pain with minimal movement) Extremities : no muscle atrophy, no cyanosis and no clubbing Skin: no rashes, warm and dry Lymphatic: no cervical or axillary lymphadenopathy _ (1) Compression fx, lumbar spine Encounter type: initial encounter Fracture healing: Fracture type: closed Lumbar vertebra fracture level: L4 Qualified Code(s): S32.040A - Wedge compression fracture of fourth lumbar vertebra, initial encounter for closed fracture
[2018-06-05] MEDS: FERROUS SULFATE 325 MG TAB PO SCH (21:08)
[2018-06-05] MEDS: ATORVASTATIN 20 MG TAB PO SCH (21:09)
[2018-06-05] MEDS: NAPROXEN 250 MG TAB PO SCH (21:09)
[2018-06-05] MEDS: HydrALAZINE 10 MG TAB PO SCH (21:09)
[2018-06-05] MEDS: CHOLECALCIFEROL 1,000 UNITS TAB PO SCH (21:17)
[2018-06-06 07:43] LABS: BUN Creatinine Ratio 8.6 (10-20); Calcium 8.9 mg/dl (8.5-10.1); Creatinine Clr Calc Pharmacy 7.2 ml/min; Est GFR (African American) 10.1; Est GFR (Non-African American) 8.7; Potassium 4.5 mmol/L (3.5-5.1)
[2018-06-06] MEDS: NEPHROCAPS PO SCH (09:12)
[2018-06-06] MEDS: EVEROLIMUS 0.5 MG PO SCH (09:12)
[2018-06-06] MEDS: METOPROLOL TARTRATE 25 MG TAB PO SCH (09:12)
[2018-06-06] MEDS: guaiFENesin 600 MG TABCR PO SCH (09:12)
[2018-06-06] MEDS: NAPROXEN 250 MG TAB PO SCH (09:13)
[2018-06-06] MEDS: CALCIUM 600MG + VIT D 400 IU TAB PO SCH (09:13)
[2018-06-06] MEDS: DOCUSATE SODIUM/SENNA 50/8.6MG TAB PO SCH (09:14)
[2018-06-06] MEDS: HEPARIN SOD 5,000 UNIT/0.5 ML VIAL SQ SCH (09:15)
--- NOTE | 2018-06-06 10:15 | Nephrology Progress Note ---
Date of Service June 06, 2018 Assessment & Plan (1) ESRD (end stage renal disease) on dialysis: -- Volume status and electrolyte balance are acceptable. No acute indication for HD today -- Recommend dialysis diet. -- Continue Nephrocap one daily (2) Compression fx, lumbar spine: -- Recommend pain management evaluation or reconsultation w/ Orthopedics due to persistent back pain -- Patient had been on Vitamin D3 5,000 units daily as outpatient -- Last PTH on 05/01/18 was low at 57 (3) HTN (hypertension): -- Blood pressure is elevated today due to back discomfort -- Continue Nebivolol and Hydralazine (4) Hx of liver transplant: -- On Everolimus 0.5 mg 4 tablets BID as outpatient Subjective Ms. Li was seen & examined in her hospital room this morning. She complains of continued back discomfort. She notes that any movement exacerbates her pain. Her discomfort is mildly improved w/ NSAID therapy but she does express concerns about returning home and whether she will be able to tolerate transportation to and from HD. Physical Exam 2 Vital Signs (Past 24 Hours): Last Vital Signs Temp 36.6 C 06/06/18 07:00 Pulse 64 06/06/18 07:00 Resp 14 06/06/18 07:00 BP 123/55 L 06/06/18 07:00 Pulse Ox 96 06/06/18 07:00 Eyes: PERRL, conjunctivae normal, anicteric sclerae Neck: trachea midline, no thyromegaly Respiratory: normal respiratory effort, lungs clear to auscultation Cardiovascular: RRR, no murmur, no edema Extremities: + AV fistula Gastrointestinal (Abdomen): normal bowel sounds, soft, nontender, no hepatosplenomegaly Results & Data Laboratory Results Laboratory Tests 06/05/18 06/06/18 06:22 06:16 WBC 5.82 Hgb 10.8 L Hct 33.8 L Plt Count 144 Sodium 135 L Potassium 4.5 Chloride 101 Carbon Dioxide 27 BUN 39 H Creatinine 4.56 H* Glucose 78 _ (1) Compression fx, lumbar spine Encounter type: initial encounter Fracture healing: Fracture type: closed Lumbar vertebra fracture level: L4 Qualified Code(s): S32.040A - Wedge compression fracture of fourth lumbar vertebra, initial encounter for closed fracture
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
[2018-06-07] MEDS ORDERED: PARICALCITOL IV ONE (07:00)
[2018-06-07] MEDS ORDERED: HEPARIN SOD (PORCINE) 1000 UNIT/ML 10 ML VIAL IV SCH ×2 (07:00)
[2018-06-07] MEDS ORDERED: EPOETIN ALFA 4,000 UNIT/ML VIAL IV SCH (07:00)
[2018-06-07] MEDS ORDERED: SODIUM CHLORIDE 0.9% 1000ML 1,000 ML IV PRN (07:00)
== END 2018-06-06 12:39 | DRG 551 ==
LOC: ED 10:30 → 3N 15:30 → SUATTDRO 15:30 → 3N 17:27

== ENCOUNTER 2018-07-13 13:28 | Inpatient (IN) ==
[2018-07-13] MEDS ORDERED: ONDANSETRON INJ 2 MG/ML 2 ML VIAL IV STA (14:53)
[2018-07-13] MEDS ORDERED: MoRPHine SULFATE 2 MG/ML CARP IV STA (14:53)
--- NOTE | 2018-07-13 15:33 | XRay Report ---
XR chest 1V portable HISTORY: 78 years-old Female Chest Pain acute atypical chest pain COMPARISON: Chest radiograph 06/03/2018 TECHNIQUE: Portable AP view of the chest FINDINGS: Cardiac silhouette is enlarged, unchanged. Calcification of the thoracic aortic arch. Unchanged mild right hemidiaphragmatic elevation. Trace right pleural effusion with subsegmental right basilar opaci ties. No overt pulmonary edema or pneumothorax. The left lung is generally clear. Degenerative change s of the shoulders and spine. Surgical clips project over the left axilla and left upper extremity. IMPRESSION: 1. Cardiomegaly without overt pulmonary edema. 2. Trace right pleural effusion with subsegmental right basilar opacities suggestive of atelectasis o r pneumonitis. The above report was generated using voice recognition software. It may contain grammatical, syntax o r spelling errors. Electronically signed by: Mikey Montgomery M.D. 07/13/2018 3:32 PM
[2018-07-13 15:34] LABS: Basophils # (auto) 0.02 K/uL (0-0.2); Basophils % (auto) 0.4 %; Eosinophils # (auto) 0.08 K/uL (0-0.5); Eosinophils % (auto) 1.8 %; Hematocrit (blood only) 32.3 % (37-47); Lymphocytes # (auto) 1.97 K/uL (1.2-3.4); Lymphocytes % (auto) 44.3 %; Mean Corpuscular Volume 90.5 fL (80-100); Mean Platelet Volume 9.7 fL (7.4-10.4); Monocytes # (auto) 0.41 K/uL (0.11-0.59); Monocytes % (auto) 9.2 %; Neutrophils # (auto) 1.97 K/uL (1.4-6.5); Neutrophils % (auto) 44.3 %; Platelet Count 130 K/uL (130-400); RDW Coefficient of Variation 17.3 % (11.5-14.5); Red Blood Count 3.57 M/uL (4.2-5.4); White Blood Count 4.45 K/uL (4.8-10.8)
[2018-07-13 16:01] LABS: Albumin Level 2.8 gm/dl (3.4-5.0); BUN Creatinine Ratio 9.8 (10-20); Calcium 9.2 mg/dl (8.5-10.1); Creatinine Clr Calc Pharmacy 7.4 ml/min; Est GFR (African American) 10.6; Est GFR (Non-African American) 9.1; Potassium 4.8 mmol/L (3.5-5.1)
[2018-07-13 16:03] LABS: Albumin Globulin Ratio 0.6 (0.9-2); Bilirubin,Total 0.5 mg/dl (0.2-1); Globulin 4.7 gm/dl (2.5-4.0); Total Protein 7.5 gm/dl (6.4-8.2)
--- NOTE | 2018-07-13 16:31 | CT Scan Report ---
CT lumbar spine wo con HISTORY: 78 years-old Female contining low back pain chronic low back pain without reported trauma COMPARISON: CT lumbar spine 06/03/2018, MRI lumbar spine 06/04/2018. TECHNIQUE: Multiple axial CT images of the lumbar spine were obtained without the use of IV contrast. A dose lowering technique was used consistent with the principals of ALARA. FINDINGS: Demineralized appearance of the bones. Unchanged 4 mm anterolisthesis L4 on L5, likely degenerative r elated. Acute appearing 20% anterior endplate compression deformity of the L3 vertebral body is new f rom comparison. 3 mm retropulsion about the appear aspect of the posterior endplate without significa nt central canal stenosis. Subacute appearing 25% anterior endplate compression deformity of L4 is un changed with chronic superior endplate compression deformity of L5. The L1 and L2 vertebral bodies ap pear intact. Severe multilevel facet arthrosis with moderate multilevel spondylitic spurring. Evaluat ion of the central canal and neuroforamina is better assessed by MRI. The imaged sacrum and iliac bon es appear intact. Extensive arterial calcifications noted about the abdomen and pelvis. Minimal prevertebral edema at L 3. IMPRESSION: 1. Acute appearing 20% anterior plate compression deformity of the L3 vertebral body is new from 06/04. 3 mm retropulsion without significant associated central canal stenosis. 2. Unchanged subacute appearing compression deformity at L4 with chronic superior endplate compressio n deformity at L5. 3. Severe multilevel facet arthrosis with moderate spondylitic spurring. 4. Demineralized appearance of the bones. The above report was generated using voice recognition software. It may contain grammatical, syntax o r spelling errors. Electronically signed by: Mikey Montgomery M.D. 07/13/2018 4:29 PM
--- NOTE | 2018-07-13 16:38 | CT Scan Report ---
ABDOMEN AND PELVIS CT WITHOUT CONTRAST HISTORY: Acute low back pain with acute generalized abdominal pain low back/abd pain TECHNIQUE: Multiaxial CT images of the abdomen and pelvis were performed without contrast. A dose lo wering technique was utilized adhering to the principles of ALARA. COMPARISON STUDY: CT lumbar spine of same day, CT abdomen and pelvis 06/03/2018. FINDINGS: Moderate multichamber cardiac enlargement with trace pericardial effusion and coronary arterial calci fications. Mild subsegmental bibasilar atelectasis/pleural parenchymal scarring. Resolution of the pr eviously described trace pleural effusions. No pneumatosis or pneumoperitoneum. Evaluation of the solid abdominal organs is limited without use of IV contrast. Within the limitation s of the study, the liver, spleen, pancreas and adrenal glands are unremarkable. Extensive upper abdo kwadwo vascular calcifications are noted. The gallbladder is either contracted or surgically absent. C ortical thinning of the bilateral kidneys, left greater than right. No renal or ureteral calculi or o bstructive uropathy. Wall thickening of the urinary bladder with partial distention. Vascular calcifi cations noted about the uterus. No adnexal mass lesions. Extensive calcification of the abdominal aor ta without aneurysm. There is no adenopathy. There is no bowel obstruction. Mild to moderate volume of formed stool noted throughout the colon. Mi ld nonspecific rectal wall thickening. Terminal ileum is unremarkable. No evidence of acute appendici tis. Hyperdense material within the appendiceal lumen suggests retained enteric contrast or inspissat ed fecal debris. There are multiple small fat filled ventral abdominal wall hernias including a 1.8 c m periumbilical hernia with mild adjacent stranding. Suprapubic ventral abdominal wall hernia also no farida with mild stranding, unchanged. There is diffuse thinning about the anterior abdominal wall. Liu tases recti. Demineralized appearance of the bones. Unchanged 4 mm anterolisthesis L4 on L5, likely degenerative r elated. Acute appearing 20% anterior endplate compression deformity of the L3 vertebral body is new f rom comparison. 3 mm retropulsion about the appear aspect of the posterior endplate without significa nt central canal stenosis. Subacute appearing 25% anterior endplate compression deformity of L4 is un changed with chronic superior endplate compression deformity of L5. The L1 and L2 vertebral bodies ap pear intact. Severe multilevel facet arthrosis with moderate multilevel spondylitic spurring. Evaluat ion of the central canal and neuroforamina is better assessed by MRI. The imaged sacrum and iliac bon es appear intact. Healed remote right superior and inferior pubic rami fractures. IMPRESSION: 1. No acute intra-abdominal or intrapelvic abnormality identified. 2. Acute appearing 20% anterior plate compression deformity of the L3 vertebral body is new from 06/04. 3 mm retropulsion without significant associated central canal stenosis. 3. Unchanged subacute appearing compression deformity at L4 with chronic superior endplate compressio n deformity at L5. 4. Cardiomegaly with trace pericardial effusion. 5. Mild nonspecific rectal wall thickening. 6. Mild constipation. 7. Additional findings as above. Electronically signed by: Mikey Montgomery M.D. 07/13/2018 4:37 PM
--- NOTE | 2018-07-13 17:56 | History & Physical Report ---
Date of Service July 13, 2018 Assessment & Plan (1) Compression fx, lumbar spine: Prior L4 compression fracture treated conservatively with NSAID, opiate, and minimal acetaminophen. Seen by ortho with conservative recs. Now with new L3 compression fracture as well on lumbar CT. Per patient, pain has never really gotten better. - Continue conservative therapies - Re-consult ortho given worsening compression fractures and pain - PT/OT/CM - Possible placement (2) HTN (hypertension): During prior hospitalization, her BP was not well controlled. On weird home regimen with hydralazine only QHS. 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 Stable since then, follows with her specialist. - Continue everolimus (4) ESRD (end stage renal disease) on dialysis: Has left UE fistula with good thrill and bruit on exam. On HD since 2018. - Nephrology consult - Continue Nephro-Katarina (5) HLD (hyperlipidemia): - Continue atorvastatin (6) DVT prophylaxis: SCDs - Per calculator, low risk patient History of Present Illness Primary Care Provider: Tiburcio Gutierrez MD 78-year-old female with history of orthotopic liver transplant, hypertension, ESRD who presents with L3 compression fracture. Patient was admitted for an L4 compression fracture approximately 1 month ago which was treated with conservative measures, and then she was discharged to rehab. She reports that over the last month her back pain has become worse instead of better, and that she now has some lower back pain that wraps around to her groin bilaterally. She denies any numbness or tingling of her lower extremities. She reports some constipation with her pain medications, but no bowel or bladder incontinence. No saddle anesthesia. Otherwise denies any other new complaints from the time of prior discharge. No shortness of breath, chest pain, abdominal pain, musculoskeletal weakness, fevers, or chills. Allergies Allergy/AdvReac Type Severity Reaction Status Date / Time No Known Allergies Allergy Unverified 07/13/18 14:34 Home Medications Home Medications Medication Instructions Recorded Confirmed Type ascorbic acid (vitamin C) [Vitamin 1,000 mg PO QDL 06/03/18 07/13/18 History C] atorvastatin 20 mg PO HS 06/03/18 07/13/18 History calcium carbonate-vitamin D3 1 tab PO BID 06/03/18 07/13/18 History [Calcium 500 + D] cholecalciferol (vitamin D3) 2,000 unit PO HS 06/03/18 07/13/18 History [Vitamin D3] everolimus (immunosuppressive) 2 mg PO BID 06/03/18 07/13/18 History ferrous sulfate 325 mg PO HS 06/03/18 07/13/18 History hydralazine 10 mg PO HS 06/03/18 07/13/18 History multivitamin 1 tab PO QAM 06/03/18 07/13/18 History nebivolol 10 mg PO QAM 06/03/18 07/13/18 History naproxen 250 mg PO BID #1 tab 06/06/18 07/13/18 Rx oxycodone 5 mg PO Q4H PRN #4 tab 06/06/18 07/13/18 Rx Past Med/Surg History Medical History HTN (hypertension) (Chronic) HLD (hyperlipidemia) (Chronic) Osteoporosis (Chronic) Anemia (Chronic) Dyspnea History of renal dialysis Hx of compression fracture of spine Surgical History Liver transplant status (Chronic) S/P tubal ligation (Chronic) H/O detached retina repair (Chronic) S/P cataract extraction and insertion of intraocular lens (Chronic) Family History Other Family history non-contributory Social History Preferred Language: Frisian Beliefs That Will Affect Care: None marital status: Single Current Living Situation: Family Current Living Situation Comment: lives with daughter current occupational status: retired Feels Safe at Home: Yes Smoking Status: Never smoker Hx Alcohol Use: No Hx Substance Use: No Review of Systems Constitutional: no fever, no chills and no sweats Eyes: no diplopia Ear, Nose, Mouth, Throat: no ear trauma, no nasal discharge and no dental pain Respiratory: no cough, no chest congestion and no dyspnea Cardiovascular: no chest pain, no dyspnea on exertion, no palpitations and no syncope Gastrointestinal: no abdominal pain, no belching, no constipation, no diarrhea/loose stools, no blood in stools and no melena Musculoskeletal: + back pain; no joint pain and no muscle weakness Integumentary: no rash, no skin ulcer and no erythema Neurologic: no generalized weakness, no loss of sensation, no numbness and no paresthesia Psychiatric: no depression and no anxiety Endocrine: no fatigue, no polydipsia and no polyphagia Physical Exam Vital Signs (Past 24 Hours): Last Vital Signs Temp 36.6 C 07/13/18 13:32 Pulse 81 07/13/18 17:00 Resp 18 07/13/18 17:00 BP 175/80 H 07/13/18 17:00 Pulse Ox 96 07/13/18 17:00 Constitutional: WD/WN, vitals as above Eyes: EOM intact bilaterally; no conjunctival abnormality ENMT: external ear and nose normal, oropharynx normal Neck: trachea midline, no thyromegaly normal visual inspection Respiratory: normal respiratory effort, lungs clear to auscultation no respiratory distress Cardiovascular: RRR, no murmur, no edema Gastrointestinal (Abdomen): Inspection/Auscultation: abdomen normal to inspection; abdomen not distended Musculoskeletal: Spine: + thoracic spinal tenderness and + lumbar spinal tenderness (Lower back) Mild weakness in legs (4/5) throughout, due to pain with movement. Skin: no rashes, warm and dry Neurologic: moves all extremities and awake Psychiatric: Orientation: alert, oriented to person and cooperative (1) Compression fx, lumbar spine Encounter type: initial encounter Fracture type: closed Lumbar vertebra fracture level: L4 Qualified Code(s): S32.040A - Wedge compression fracture of fourth lumbar vertebra, initial encounter for closed fracture
[2018-07-13] MEDS ORDERED: OXYCODONE HCL IR 5 MG TAB (IMMEDIATE RELEASE) PO PRN (18:59)
[2018-07-13] MEDS ORDERED: ACETAMINOPHEN 500 MG TAB PO PRN (18:59)
[2018-07-13] MEDS: CHOLECALCIFEROL 1,000 UNITS TAB PO SCH (20:03)
[2018-07-13] MEDS: HydrALAZINE 10 MG TAB PO SCH (20:03)
[2018-07-13] MEDS: NAPROXEN 250 MG TAB PO SCH (20:04)
[2018-07-13] MEDS: ATORVASTATIN 20 MG TAB PO SCH (20:04)
[2018-07-13] MEDS: CALCIUM 600MG + VIT D 400 IU TAB PO SCH (20:04)
[2018-07-13] MEDS: EVEROLIMUS PO SCH (21:53)
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
[2018-07-14] MEDS ORDERED: TRAMADOL HCL 50 MG TABLET PO PRN (00:09)
[2018-07-14 06:23] LABS: Hemoglobin 9.9 g/dL (12.0-16.0); Mean Corpuscular Hgb Conc 31.9 g/dL (32-36); Mean Corpuscular Volume 89.6 fL (80-100); Mean Platelet Volume 9.4 fL (7.4-10.4); Platelet Count 121 K/uL (130-400); RDW Coefficient of Variation 17.4 % (11.5-14.5); RDW Standard Deviation 57.2 fL (36.4-46.3); Red Blood Count 3.46 M/uL (4.2-5.4); White Blood Count 3.72 K/uL (4.8-10.8)
[2018-07-14 06:57] LABS: BUN Creatinine Ratio 10.5 (10-20); Calcium 9.4 mg/dl (8.5-10.1); Creatinine Clr Calc Pharmacy 6.6 ml/min; Est GFR (African American) 9.1; Est GFR (Non-African American) 7.9; Magnesium 2.7 mg/dl (1.8-2.4); Potassium 5.4 mmol/L (3.5-5.1)
[2018-07-14] MEDS: NEBIVOLOL HCL 5 MG TAB PO SCH (09:34)
[2018-07-14] MEDS: NAPROXEN 250 MG TAB PO SCH ×2 (09:35→21:24)
[2018-07-14] MEDS: MULTIVITAMIN TAB PO SCH (09:35)
[2018-07-14] MEDS: CALCIUM 600MG + VIT D 400 IU TAB PO SCH ×2 (09:35→21:24)
[2018-07-14] MEDS: EVEROLIMUS PO SCH ×2 (09:42→21:24)
--- NOTE | 2018-07-14 11:42 | History and Physical Report ---
DATE OF ADMISSION: 07/13/2018 CHIEF COMPLAINT: Back pain, major complaint of lumbar spine difficulty, diagnosis of L4 compression fracture. Now she has a new L3 compression fracture. They are minimal. They are painful. SUBJECTIVE: She presented to the ER few months ago, back in recently with 2 consecutive fractures. She has tried a brace for support, but it actually hurts her more than it helps her and I have seen that with some of the elderly ____ confining. They dig into the skin and they are sometimes not effective. PAST MEDICAL HISTORY: Hypertension, liver transplant, renal disease, severe osteoporosis, hypertension. HOME MEDICATIONS: Listed. ALLERGIES: None. OBJECTIVE: She is alert, oriented, pleasant lady. She is afebrile. Vital signs stable. Pain with percussion of lumbar spine, loss of range of motion, but neurologically intact. IMPRESSION: Includes that of an L3-L4 compression fracture, mild, albeit painful. PLAN: We will continue conservative measures. We tried a brace before it has failed. I mentioned on the chart that she might be a reasonable candidate for kyphoplasty procedure. Sometimes a kyphoplasty can really solidify those vertebrae and be helpful. It may really improve her quality of life. I would not be able to get to the kyphoplasty tomorrow, which would be 07/15/2018, but possible within the next 2-3 days. It might be prudent to get her home, discharge, set up the kyphoplasty as an outpatient is just a suggestion. I will follow her daily.
[2018-07-14] MEDS: ASCORBIC ACID 500 MG TAB PO SCH (13:16)
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
[2018-07-14] MEDS: DOCUSATE SODIUM/SENNA 50/8.6MG TAB PO SCH (19:44)
[2018-07-14] MEDS ORDERED: guaiFENesin SUGAR FREE 100 MG/5 ML UDC PO STA (20:34)
[2018-07-14] MEDS: HydrALAZINE 10 MG TAB PO SCH (21:22)
[2018-07-14] MEDS: CHOLECALCIFEROL 1,000 UNITS TAB PO SCH (21:22)
[2018-07-14] MEDS: ATORVASTATIN 20 MG TAB PO SCH (21:23)
--- NOTE | 2018-07-14 23:19 | Hospitalist Progress Note ---
Date of Service July 14, 2018 Assessment & Plan (1) Compression fx, lumbar spine: Prior L4 compression fracture treated conservatively with NSAID, opiate, and minimal acetaminophen. Seen by ortho with conservative recs. Now with new L3 compression fracture as well on lumbar CT. Per patient, pain has never really gotten better. - Continue conservative therapies - Re-consult ortho given worsening compression fractures and pain - PT/OT/CM - Possible placement. Patient though is not interested in placement, however she is open to this if necessary. -Surgery may be scheduled in middle of week. (2) HTN (hypertension): During prior hospitalization, her BP was not well controlled. On weird home regimen with hydralazine only QHS. 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 Stable since then, follows with her specialist. - Continue everolimus (4) ESRD (end stage renal disease) on dialysis: Has left UE fistula with good thrill and bruit on exam. On HD since 2018. - Nephrology consult - Continue Nephro-Katarina (5) HLD (hyperlipidemia): - Continue atorvastatin (6) DVT prophylaxis: SCDs - Per calculator, low risk patient Spent 35 minutes in msanagement of patient. This included patient encounter. Subjective Patient reports a mild to moderate pain in her lower back. Patient reports that she lives mainly by herself. Patient is interested in having back surgery. Patient also reports having constipation from the narcotics and is asking for a stool softener. Review of Systems All systems reviewed & are unremarkable except as noted in HPI & below Physical Exam Vital Signs (Past 24 Hours): Last Vital Signs Temp 36.3 C L 07/14/18 15:54 Pulse 68 07/14/18 15:54 Resp 20 07/14/18 15:54 BP 181/67 H 07/14/18 15:54 Pulse Ox 95 07/14/18 15:54 Physical Exam: Constitutional: WD/WN, vitals as above Eyes: EOM intact bilaterally; no conjunctival abnormality ENMT: external ear and nose normal, oropharynx normal Neck: trachea midline, no thyromegaly normal visual inspection Respiratory: normal respiratory effort, lungs clear to auscultation no respiratory distress Cardiovascular: RRR, no murmur, no edema Gastrointestinal (Abdomen): Inspection/Auscultation: abdomen normal to inspection; abdomen not distended Musculoskeletal: Spine: + thoracic spinal tenderness and + lumbar spinal tenderness (Lower back) Mild weakness in legs (4/5) throughout, due to pain wit h movement. Skin: no rashes, warm and dry Neurologic: moves all extremities and awake Psychiatric: Orientation: alert, oriented to person and cooperative (1) Compression fx, lumbar spine Encounter type: initial encounter Fracture type: closed Lumbar vertebra fracture level: L4 Qualified Code(s): S32.040A - Wedge compression fracture of fourth lumbar vertebra, initial encounter for closed fracture
[2018-07-15] MEDS ORDERED: SODIUM CHLORIDE 0.9% 1000ML 1,000 ML IV PRN (07:00)
[2018-07-15] MEDS: NAPROXEN 250 MG TAB PO SCH ×2 (08:10→20:32)
[2018-07-15] MEDS: MULTIVITAMIN TAB PO SCH (08:10)
[2018-07-15] MEDS: EVEROLIMUS PO SCH ×2 (08:11→20:33)
[2018-07-15] MEDS: DOCUSATE SODIUM/SENNA 50/8.6MG TAB PO SCH (08:11)
[2018-07-15] MEDS: NEBIVOLOL HCL 5 MG TAB PO SCH (08:12)
[2018-07-15] MEDS: CALCIUM 600MG + VIT D 400 IU TAB PO SCH ×2 (08:12→20:31)
--- NOTE | 2018-07-15 10:38 | Nephrology Progress Note ---
Date of Service July 15, 2018 Assessment & Plan (1) ESRD (end stage renal disease) on dialysis: -- HD this morning (MWF 3hr 2K 2.5Ca F-160NR Qb 400/ Qd 800 EDW 48 kg). RN notified. -- BP, volume status are appropriate -- Renal diet -- Will order PRP and CBC for am (2) HTN (hypertension): -- BP currently acceptable (3) Compression fx, lumbar spine: -- New L3 compression fracture. Patient has L4 compression fracture treated conservatively with NSAID, opiate, and minimal acetaminophen. -- Ortho recommendations reviewed. Patient may require kyphoplasty -- PT notes reviewed. 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 Subjective Ms. Li was seen & examined in preparation for HD this morning. She reports that her back discomfort persists. She denies fever, change in bowel habit or difficulty ambulating. Respiratory: no dyspnea Cardiovascular: no chest pain Musculoskeletal: as per Subjective / HPI Physical Exam Vital Signs (Past 24 Hours): Last Vital Signs Temp 36.6 C 07/15/18 08:00 Pulse 70 07/15/18 08:00 Resp 19 07/15/18 08:00 BP 159/63 H 07/15/18 08:00 Pulse Ox 96 07/15/18 08:00 Constitutional: + frail appearing Eyes: PERRL, conjunctivae normal, anicteric sclerae Neck: trachea midline, no thyromegaly Respiratory: normal respiratory effort, lungs clear to auscultation Cardiovascular: RRR, no murmur, no edema Gastrointestinal (Abdomen): normal bowel sounds, soft, nontender, no hepatosplenomegaly (1) Compression fx, lumbar spine Encounter type: initial encounter Fracture type: closed Lumbar vertebra fracture level: L4 Qualified Code(s): S32.040A - Wedge compression fracture of fourth lumbar vertebra, initial encounter for closed fracture
[2018-07-15] MEDS: ASCORBIC ACID 500 MG TAB PO SCH (11:02)
--- NOTE | 2018-07-15 15:59 | Progress Note ---
DATE: 07/15/2018 SUBJECTIVE: She is still in moderate complaints of pain. It seems relatively controlled. She is intolerant to a back brace for support. OBJECTIVE: Vital signs stable. Neurologically intact. IMAGES: Reviewed. She has 2 compression fractures that actually fairly mild, although they are painful at L3 and L4 lumbar spine. IMPRESSION: Mild to moderate compression fractures, lumbar spine. PLAN: Right now, she is starting to become a candidate for a kyphoplasty procedure. I state that we were hoping she would get fine without surgical intervention. The kyphoplasty is not without risk. I recommend at this point in time because of scheduling, to try to medicate her appropriately maybe rehab and then back into the office in the next 6-7 days. We can appropriately schedule her for a kyphoplasty procedure, assuming she fails medical management. I will not be able to get to the kyphoplasty procedure this week, it would have to be until next week, so I would recommend discharge planning and then possible scheduling but that would be from the office.
[2018-07-15] MEDS: HydrALAZINE 10 MG TAB PO SCH (20:30)
[2018-07-15] MEDS: ATORVASTATIN 20 MG TAB PO SCH (20:31)
[2018-07-15] MEDS: CHOLECALCIFEROL 1,000 UNITS TAB PO SCH (20:33)
[2018-07-15] MEDS ORDERED: FLUTICASONE PROPIONATE NA SPR 16 GM BTL SCH (22:30)
[2018-07-15] MEDS ORDERED: guaiFENesin SUGAR FREE 100 MG/5 ML UDC PO PRN (22:50)
--- NOTE | 2018-07-16 00:12 | Hospitalist Progress Note ---
Date of Service July 15, 2018 Assessment & Plan (1) Compression fx, lumbar spine: Osteoporosis related pathological fracture, L3 Prior L4 compression fracture treated conservatively with NSAID, opiate, and minimal acetaminophen. Seen by ortho with conservative recs. Now with new L3 compression fracture as well on lumbar CT. Per patient, pain has never really gotten better. - Continue conservative therapies - Re-consult ortho given worsening compression fractures and pain - PT/OT/CM - Possible placement. Patient though is not interested in placement, however she is open to this if necessary. -Surgery will be done as an outpatient as no openings for ortho this week. She will f/u at discharge. Awaiting input for PT prior to discharge. (2) HTN (hypertension): During prior hospitalization, her BP was not well controlled. On weird home regimen with hydralazine only QHS. 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 Stable since then, follows with her specialist. - Continue everolimus (4) ESRD (end stage renal disease) on dialysis: Has left UE fistula with good thrill and bruit on exam. On HD since 2018. - Nephrology consult - Continue Nephro-Katarina (5) HLD (hyperlipidemia): - Continue atorvastatin (6) DVT prophylaxis: SCDs - Per calculator, low risk patient Spent 25 minutes in msanagement of patient. This included patient encounter. Subjective Patient reports no improvement from yesterday. Patient reports being frustrated that she will not have surgery during this hopsital stay, She continues to have mild to moderate pain in her lower back. Patient reports that she lives mainly by herself. Patient also reports having a BM in past 24 hours. Musculoskeletal: + back pain; no joint pain and no muscle weakness Physical Exam Vital Signs (Past 24 Hours): Last Vital Signs Temp 36.5 C 07/15/18 22:48 Pulse 73 07/15/18 22:48 Resp 18 07/15/18 22:48 BP 183/75 H 07/15/18 22:48 Pulse Ox 97 07/15/18 22:48 Physical Exam: Constitutional: WD/WN, vitals as above Eyes: EOM intact bilaterally; no conjunctival abnormality ENMT: external ear and nose normal, oropharynx normal Neck: trachea midline, no thyromegaly normal visual inspection Respiratory: normal respiratory effort, lungs clear to auscultation no respiratory distress Cardiovascular: RRR, no murmur, no edema Gastrointestinal (Abdomen): Inspection/Auscultation: abdomen normal to inspection; abdomen not distended Musculoskeletal: Spine: + thoracic spinal tenderness and + lumbar spinal tenderness (Lower back) Mild weakness in legs (4/5) throughout, due to pain with movement. Skin: no rashes, warm and dry Neurologic: moves all extremities and awake Psychiatric: Orientation: alert, oriented to person and cooperative (1) Compression fx, lumbar spine Encounter type: initial encounter Fracture type: closed Lumbar vertebra fracture level: L4 Qualified Code(s): S32.040A - Wedge compression fracture of fourth lumbar vertebra, initial encounter for closed fracture
[2018-07-16 06:55] LABS: Hematocrit (blood only) 28.9 % (37-47); Hemoglobin 9.5 g/dL (12.0-16.0); Mean Corpuscular Hgb Conc 32.9 g/dL (32-36); Mean Corpuscular Volume 87.3 fL (80-100); Mean Platelet Volume 9.8 fL (7.4-10.4); Platelet Count 124 K/uL (130-400); RDW Standard Deviation 54.9 fL (36.4-46.3); Red Blood Count 3.31 M/uL (4.2-5.4); White Blood Count 3.91 K/uL (4.8-10.8)
[2018-07-16 07:28] LABS: BUN Creatinine Ratio 9.6 (10-20); Calcium 8.5 mg/dl (8.5-10.1); Creatinine Clr Calc Pharmacy 7.9 ml/min; Est GFR (African American) 11.4; Est GFR (Non-African American) 9.8
[2018-07-16] MEDS: DOCUSATE SODIUM/SENNA 50/8.6MG TAB PO SCH (08:16)
[2018-07-16] MEDS: NEBIVOLOL HCL 5 MG TAB PO SCH (08:18)
[2018-07-16] MEDS: NAPROXEN 250 MG TAB PO SCH (08:18)
[2018-07-16] MEDS: CALCIUM 600MG + VIT D 400 IU TAB PO SCH (08:18)
[2018-07-16] MEDS: MULTIVITAMIN TAB PO SCH (08:18)
[2018-07-16] MEDS: EVEROLIMUS PO SCH (08:19)
--- NOTE | 2018-07-16 08:19 | Hospitalist Progress Note ---
Date of Service July 16, 2018 Assessment & Plan (1) Compression fx, lumbar spine: Osteoporosis related pathological fracture, L3 Prior L4 compression fracture treated conservatively with NSAID, opiate, and minimal acetaminophen. Seen by ortho with conservative recs. Now with new L3 compression fracture as well on lumbar CT. Per patient, pain has never really gotten better. - Continue conservative therapies - Re-consult ortho given worsening compression fractures and pain - PT/OT/CM - Patient though is not interested in placement, however she is open to this if necessary. -Surgery will be done as an outpatient as no openings for ortho this week. She will f/u at discharge. Awaiting input for PT prior to discharge. (2) HTN (hypertension): During prior hospitalization, her BP was not well controlled. On weird home regimen with hydralazine only QHS. 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 Stable since then, follows with her specialist. - Continue everolimus (4) ESRD (end stage renal disease) on dialysis: Has left UE fistula with good thrill and bruit on exam. On HD since 2018. - Nephrology consult - Continue Nephro-Katarina (5) HLD (hyperlipidemia): - Continue atorvastatin (6) DVT prophylaxis: SCDs - Per calculator, low risk patient Physical Exam Vital Signs (Past 24 Hours): Last Vital Signs Temp 36.5 C 07/16/18 07:24 Pulse 75 07/16/18 07:24 Resp 16 07/16/18 07:24 BP 145/67 H 07/16/18 07:24 Pulse Ox 95 07/16/18 07:24 (1) Compression fx, lumbar spine Encounter type: initial encounter Fracture type: closed Lumbar vertebra fracture level: L4 Qualified Code(s): S32.040A - Wedge compression fracture of fourth lumbar vertebra, initial encounter for closed fracture
[2018-07-16] MEDS ORDERED: LIDOCAINE 5% 1 PATCH TD SCH (09:00)
--- NOTE | 2018-07-16 12:06 | Nephrology Progress Note ---
Date of Service July 16, 2018 Assessment & Plan (1) ESRD (end stage renal disease) on dialysis: -- HD tomorrow. Orders entered into EMR and HD RN notified. (MWF 3hr 2K 2.5Ca F-160NR Qb 400/ Qd 800 EDW 48 kg). RN notified. -- BP, volume status are appropriate -- Renal diet (2) HTN (hypertension): -- BP currently acceptable (3) Compression fx, lumbar spine: -- New L3 compression fracture. Patient has L4 compression fracture treated conservatively with NSAID, opiate, and minimal acetaminophen. -- Ortho recommendations reviewed. Patient may require kyphoplasty -- PT notes reviewed. 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 Subjective Ms. Li was seen & examined in her hospital room this morning. She reports that her back discomfort persists. She denies fever, change in bowel habit or difficulty ambulating. Ms. Li expressed concern about leaving the hospital before kyphoplasty is completed. Physical Exam Vital Signs (Past 24 Hours): Last Vital Signs Temp 36.5 C 07/16/18 11:43 Pulse 73 07/16/18 11:43 Resp 16 07/16/18 11:43 BP 145/67 H 07/16/18 11:43 Pulse Ox 95 07/16/18 11:43 Constitutional: + frail appearing Eyes: PERRL, conjunctivae normal, anicteric sclerae Neck: trachea midline, no thyromegaly Respiratory: normal respiratory effort, lungs clear to auscultation Cardiovascular: RRR, no murmur, no edema Gastrointestinal (Abdomen): normal bowel sounds, soft, nontender, no hepatosplenomegaly Results & Data Laboratory Results Laboratory Tests 07/16/18 07/16/18 06:33 06:33 WBC 3.91 L Hgb 9.5 L Hct 28.9 L Plt Count 124 L Sodium 138 Potassium 5.0 Chloride 103 Carbon Dioxide 29 BUN 40 H Creatinine 4.14 H Glucose 76 Calcium 8.5 (1) Compression fx, lumbar spine Encounter type: initial encounter Fracture type: closed Lumbar vertebra fracture level: L4 Qualified Code(s): S32.040A - Wedge compression fracture of fourth lumbar vertebra, initial encounter for closed fracture
[2018-07-16] MEDS: ASCORBIC ACID 500 MG TAB PO SCH (12:26)
--- NOTE | 2018-07-16 19:35 | Discharge Summary ---
Date of Service July 16, 2018 Admission HPI Per Admitting Provider 78-year-old female with history of orthotopic liver transplant, hypertension, ESRD who presents with L3 compression fracture. Patient was admitted for an L4 compression fracture approximately 1 month ago which was treated with conservative measures, and then she was discharged to rehab. She reports that over the last month her back pain has become worse instead of better, and that she now has some lower back pain that wraps around to her groin bilaterally. She denies any numbness or tingling of her lower extremities. She reports some constipation with her pain medications, but no bowel or bladder incontinence. No saddle anesthesia. Otherwise denies any other new complaints from the time of prior discharge. No shortness of breath, chest pain, abdominal pain, musculoskeletal weakness, fevers, or chills. Principal Diagnosis Lumbar compression fracture Transplanted liver End-stage renal disease on renal replacement therapy Discharge Exam Patient is stable heart is regular without murmurs lungs are clear she has focal back pain but no neurological symptoms radicular leg Discharge Data Allergies Allergy/AdvReac Type Severity Reaction Status Date / Time No Known Allergies Allergy Unverified 07/13/18 14:34 Consultations 07/13/18 17:20 ED Decision to Admit Stat 07/13/18 18:59 Consult Case Management - Discharge Planning Routine Consult Nephrology Routine Consult Orthopedic Surgery Routine Ordered Studies 07/13/18 14:52 CT abd pelvis wo con Stat CT lumbar spine wo con Stat Hospital Course (1) Compression fx, lumbar spine: Osteoporosis related pathological fracture, L3 Prior L4 compression fracture treated conservatively with NSAID, opiate, and minimal acetaminophen. Seen by ortho with conservative recs. Now with new L3 compression fracture as well on lumbar CT. Per patient, pain has never really gotten better. 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 Stable since then, follows with her specialist. - Continue everolimus (4) ESRD (end stage renal disease) on dialysis: Has left UE fistula with good thrill and bruit on exam. On HD since 2018. Will be followed as an outpatient by nephrology - Continue Nephro-Katarina (5) HLD (hyperlipidemia): - Continue atorvastatin (6) DVT prophylaxis: SCDs - Per calculator, low risk patient Total Time Total Time Spent Total Time Spent (In Minutes): greater than 30 minutes were required to prepare discharge Discharge Plan Discharge Items Patient Disposition: Transfer Inpatient Rehab Fac Reason For Visit: BACK PAIN Discharge Diagnosis: lumbar compression fx Discharge Goals: Decrease discomfort and Diagnostic testing Activity: Resume your previous activity Non-emergency contact: Primary Care Provider and Surgeon Call non-emergency contact if: you have any medication questions Follow-up/Referrals: Tiburcio Gutierrez MD [Primary Care Provider] - Diet: Dialysis Renal Addtl Provider Instructions: please follow up with Dr White for consideration of Kyphoplasty Prescriptions: New sennosides-docusate sodium [Senna with Docusate Sodium] 8.6-50 mg Tablet 2 tab PO QAM Qty: 60 RF: 0 tramadol 50 mg Tablet 50 mg PO Q4H PRN (Reason: pain) Qty: 60 RF: 0 acetaminophen [Pain Reliever] 500 mg Tablet 500 mg PO Q4H PRN (Reason: pain) Qty: 60 RF: 0 lidocaine 5 % Adhesive Patch,Medicated 1 patch transdermal QAM Qty: 30 RF: 0 Continued multivitamin Tablet 1 tab PO QAM RF: 0 hydralazine 10 mg tablet 10 mg PO HS RF: 0 atorvastatin 20 mg Tablet 20 mg PO HS RF: 0 ferrous sulfate 325 mg (65 mg iron) Tablet 325 mg PO HS RF: 0 calcium carbonate-vitamin D3 [Calcium 500 + D] 500 mg(1,250mg) -200 unit Tablet 1 tab PO BID RF: 0 nebivolol 10 mg tablet 10 mg PO QAM RF: 0 cholecalciferol (vitamin D3) [Vitamin D3] 2,000 unit Tablet 2,000 unit PO HS RF: 0 everolimus (immunosuppressive) 0.5 mg tablet 2 mg PO BID RF: 0 ascorbic acid (vitamin C) [Vitamin C] 1,000 mg Tablet 1,000 mg PO QDL RF: 0 naproxen 250 mg Tablet 250 mg PO BID Qty: 1 RF: 0 oxycodone 5 mg Tablet 5 mg PO Q4H PRN (Reason: pain) Qty: 4 RF: 0 Stand-Alone Forms: [employer] [facility] [place] [facility]/Other Patient Handouts: Lidocaine Transdermal patch - 24 hour Discharge Orders: Discharge Order (Routine); Ordered 07/16/18 Ordered By: Praneeth Lozano Skilled Items Patient informed of condition?: Yes DNR: Yes Discharge Level of Care: Acute rehab Communicable Disease: No Discharge Prognosis: Stable Admission Data Admit Date/Time: 07/13/18 17:52 Attending Provider: Praneeth Lozano Admit Provider: Rashi Wise Primary Care Provider: Tiburcio Gutierrez Other Providers: Rashi Wise ; Isai Chris ; Aly White George A Service: Medical Other Interventions: Discharge Summary Assessment (RN) Last Done: 07/16/18 12:45 DC Date/Time DO NOT enter until pt leaves facility: 07/16/18 14:01
[2018-07-17] MEDS ORDERED: HEPARIN SOD (PORCINE) 1000 UNIT/ML 10 ML VIAL IV SCH (07:00)
[2018-07-17] MEDS ORDERED: SODIUM CHLORIDE 0.9% 1000ML 1,000 ML IV PRN (07:00)
[2018-07-17] MEDS ORDERED: EPOETIN ALFA 4,000 UNIT/ML VIAL IV ONE (07:00)
[2018-07-17] MEDS ORDERED: HEPARIN SOD (PORCINE) 1000 UNIT/ML 10 ML VIAL IV ONE (07:00)
== END 2018-07-16 14:01 | DRG 542 ==
LOC: ED 13:28 → SUATTDRO 17:52 → 3N 17:52

== ENCOUNTER 2018-07-28 18:29 | Inpatient (IN) ==
[2018-07-28] MEDS ORDERED: MoRPHine SULFATE 4 MG/ML 1 ML CARP\\VIAL IV STA (19:16)
[2018-07-28 19:41] LABS: Basophils # (auto) 0.02 K/uL (0-0.2); Basophils % (auto) 0.3 %; Eosinophils # (auto) 0.15 K/uL (0-0.5); Eosinophils % (auto) 2.3 %; Hematocrit (blood only) 32.7 % (37-47); Immature Granulocytes # (auto) 0.01 K/uL (0.00-0.02); Immature Granulocytes % (auto) 0.2 %; Lymphocytes # (auto) 1.47 K/uL (1.2-3.4); Lymphocytes % (auto) 22.5 %; Mean Corpuscular Hgb Conc 30.6 g/dL (32-36); Mean Corpuscular Volume 91.1 fL (80-100); Mean Platelet Volume 9.7 fL (7.4-10.4); Monocytes # (auto) 0.41 K/uL (0.11-0.59); Monocytes % (auto) 6.3 %; Neutrophils # (auto) 4.46 K/uL (1.4-6.5); Neutrophils % (auto) 68.4 %; Platelet Count 152 K/uL (130-400); RDW Coefficient of Variation 18.2 % (11.5-14.5); RDW Standard Deviation 60.1 fL (36.4-46.3); Red Blood Count 3.59 M/uL (4.2-5.4); White Blood Count 6.52 K/uL (4.8-10.8)
--- NOTE | 2018-07-28 19:46 | Emergency Department Note ---
ED Provider Note CHIEF COMPLAINT: Low back pain, bilateral flank and abdominal pain HISTORY OF PRESENTING ILLNESS: This is a 78-year-old female with past medical history significant for end-stage renal disease on hemodialysis Sunday/Sunday/Sunday, multiple compression fractures of the lumbar spine and chronic low back pain, hypertension, hyperlipidemia, who presents to the emergency department by private vehicle with her son with complaint of severe low back and bilateral flank pain for the past 2-3 days. Patient states that the pain is constant, is in her lower back and wraps around both sides and that she is also having pain in her lower abdomen, worse with movement, better with rest, currently rates as 9/10. She has been taking tramadol for the pain, which she states has not been helping. She states she was recently admitted to the hospital about 2 weeks ago for a new fracture in her back, she was seen by the orthopedic farm specialist, who recommended physical therapy, but she states that has not helped. She states that she has also been constipated and has not had a bowel movement for the past 2-3 days. She denies any chest pain, cough, or shortness of breath. She denies any dizziness or syncope. She denies any fevers or chills. She does make urine, and she denies any dysuria, urinary frequency, or foul-smelling urine. She last received her dialysis on Sunday, and is scheduled to have dialysis tomorrow. REVIEW OF SYSTEMS: A complete 10 point review of systems was reviewed with the patient with pertinent positives and negatives as per history of present illness. All else were negative. PAST MEDICAL HISTORY: Hypertension, hyperlipidemia, osteoporosis, anemia, compression fractures of the lumbar spine, end-stage renal disease on hemodialysis, liver transplant SOCIAL HISTORY: Lives at home, denies tobacco use ALLERGIES: No known allergies PHYSICAL EXAM: CONSTITUTIONAL: Pleasant and cooperative. Nontoxic appearing and in no acute distress, but appears uncomfortable from pain. HEENT: Normocephalic, atraumatic. PERRL, EOMI, no icterus. TMs normal. Pharynx normal. NECK: Supple, full active range of motion without discomfort. RESPIRATORY: Diminished in bases with fine basilar crackles, otherwise clear to auscultation bilaterally with no wheezing, rhonchi or stridor. Equal expansion bilaterally. CARDIOVASCULAR: Regular rate and rhythm with no murmurs, rubs or gallops. Normal peripheral perfusion. Left arm AV fistula with positive thrill and good bruit on auscultation. No edema. GASTROINTESTINAL: Soft, nontender, nondistended. No palpable masses or HSM. Bowel sounds present in all quadrants. CVA tenderness bilaterally. MUSCULOSKELETAL: Full range of motion of all joints without discomfort. INTEGUMENTARY: No rash or other significant dermatologic conditions noted. NEUROLOGIC: Alert and oriented X 4 with normal affect. Normal strength and sensation. ED COURSE AND MEDICAL DECISION MAKING: CC: Patient presenting with complaint of low back, bilateral flank, and abdominal pain DIFFERENTIAL DIAGNOSIS: Includes, but not limited to chronic back pain, musculoskeletal pain, muscle spasm, vertebral fracture, subluxation, herniated disc, cauda equina syndrome, small bowel obstruction, constipation, UTI, electrolyte abnormality, among others. INTERPRETATION OF LABS: No leukocytosis, mild anemia consistent with baseline, normal platelets, hyperkalemia, no other significant electrolyte abnormalities, elevated BUN/creatinine consistent with end-stage renal disease, elevated alk phos otherwise normal liver enzymes. UA appears dirty, urine culture pending. IMAGING: CT abd pelvis wo con CT DOSE: HISTORY: Pain. Constipation. lbp, flank pain, constipation, HD pt TECHNIQUE: Multiaxial CT images of the abdomen and pelvis were performed without contrast. A dose lowering technique was utilized adhering to the principles of ALARA. COMPARISON STUDY: 07/13/2018 FINDINGS: Mild bibasilar dependent atelectasis. Liver spleen and pancreas are unremarkable. Kidneys are atrophic. Bowel pattern again is nonobstructive. Right lateral abdominal hernia containing a short segment bowel loop. This appears to be a nonobstructive finding. Normal appendix. Additional suprapubic ventral h ernia also containing a short segment loop of nonobstructed bowel. Moderate fecal load throughout the colon. No evidence for true obstructive pattern. Bladder is midline. Degenerative change, osteoporosis, and a wedge deformities of the lumbosacral spine are again noted and are unchanged. IMPRESSION: 1. Nonobstructive bowel pattern. 2. Right flank hernia containing a nonobstructive loop of bowel. 3. Moderate fecal load throughout the colon. 4. Changes of the lumbar spine including several wedge deformities considered unchanged from the prior study. 5. Note is made of a suprapubic ventral hernia containing a nonobstructive loop of bowel. This is also unaltered from the prior study. 6. No acute process of the abdomen or pelvis ----- CT lumbar spine wo con CT DOSE: 260.56 mGy.cm HISTORY: Pain lbp, hx of vertebral fxs TECHNIQUE: Multiaxial CT images of the lumbar spine were performed and reformatted in the sagittal and coronal plane without the use of contrast. A dose lowering technique was utilized adhering to the principles of ALARA. COMPARISON: 07/13/2018 FINDINGS: No change compared to the prior study. Diffuse osteoporosis. Mild compression deformity L3 unchanged from the prior study. 3 mm retropulsion of the superior endplate also unchanged. Subacute compression deformities of L4 and L5 also unchanged. No evidence for new compression deformity compared to the prior study. Study remains negative for significant narrowing of the spinal canal. IMPRESSION: 1. Diffuse osteoporosis. 2. Multiple subacute to chronic compression deformities unchanged from the prior study. 3. No evidence for a new or interval process. EKG: Shows normal sinus rhythm with a rate of 88 bpm, normal axis, normal intervals, no ST or T wave abnormalities, specifically no peak T waves, no ectopy, no significant change when compared to previous EKG from 01/19/2017 by my interpretation. MEDICATION RECONCILIATION: I attest that I have personally reviewed the patient's current medication list. INITIAL VITAL SIGNS REVIEW: I reviewed the patient's initial vital signs and interpret them as follows: T: Afebrile; BP: Hypertensive; HR: Within normal limits; RR: Within normal limits; Pulse Ox: Within normal limits on room air. Blood pressure screening: The patient was found to have an elevated blood pressure and was referred to the inpatient team for further management. MDM SUMMARY: Patient was evaluated at bedside, history and physical exam performed. Patient is alert and oriented, in no acute distress, but appears to be in pain, resting in the stretcher. Patient is slow to move around, complaining of pain in her lower back and bilateral sides. Abdomen is soft, slightly distended and tender throughout, but no acute abdomen. Orders were placed at bedside for labs, UA, IV morphine for pain, CT abdomen/pelvis and CT lumbar spine to evaluate for back and abdominal pain. Patient discussed with Dr. Langley, who also evaluated the patient and agrees with my assessment, plan, and disposition. Labs and imaging reviewed as above, labs are concerning for hyperkalemia in the setting of end-stage renal disease. An EKG was performed, no ectopy, arrhythmias, ischemic changes, or peak T waves noted. I spoke on the phone with Dr. Madrigal, nephrology, regarding the patient's hyperkalemia. She recommended giving the patient Kayexalate, 2 mg IV Bumex, insulin and D50, and rechecking her potassium level in 1 hour. She states that if the patient's potassium level is less than 6, she could go home and have her dialysis tomorrow, but if she remains above 6, she should be admitted for observation and dialysis in the morning. Medications were ordered per recommendation of Dr. Madrigal. I did speak with the patient and her son, they felt that her pain level is too s ignificant and she will not be able to tolerate her dialysis tomorrow, they would like for her to be admitted because of the pain. I spoke with Dr. Echevarria, [facility], who was agreeable to evaluate the patient for admission. Repeat potassium noted to be 5.6, however blood glucose was also rechecked and the patient did become hypoglycemic, so I do feel it was reasonable to keep the patient admitted. Patient reassessed multiple times throughout ED stay, she has remained hemodynamically stable and reports that her pain is somewhat improved after the morphine. She does appear more comfortable. The patient and her son were updated on all results and plan for admission, they verbalized understanding and were agreeable to this plan. The patient was stable at time of admission. The chart was completed utilizing [employer] Speech voice recognition software. Grammatical errors, random word insertions, pronoun errors, and incomplete sentences are an occasional consequence of this system due to software limitations, ambient noise, and hardware issues. Any formal questions or con cerns about the content, text, or information contained within the body of this dictation should be directly addressed to the nurse practitioner for clarification. 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, ?CMV Social History Preferred Language: Thai Beliefs That Will Affect Care: None marital status: Single Current Living Situation: Alone Current Living Situation Comment: lives with daughter current occupational status: retired Feels Safe at Home: Yes Smoking Status: Former smoker Hx Alcohol Use: No Hx Substance Use: No Results & Data Vital Signs Vital Signs - 24 hr 07/28/18 18:36 07/28/18 20:31 07/28/18 20:32 Temperature Temperature Source Sepsis Recent Fever Within 48 Hours No Sepsis New/Unexplained Change in Mental Status No Sepsis Action Taken by Nursing No Action Required Pulse Rate 84 Pulse Rate [Right Finger] 88 Pulse Rhythm Regular Pulse Strength Normal Respiratory Rate 20 18 Respiratory Effort / Characteristics Non-Labored Spontaneous Non-Labored Respiratory Depth Normal Normal Respiratory Pattern Regular Blood Pressure 190/76 H Blood Pressure [Right Arm] 183/76 H Blood Pressure Mean 114 Blood Pressure Mean [Right Arm] 111 Blood Pressure Position Sitting Pulse Oximetry 96 92 94 Oxygen Delivery Method Room Air Room Air Room Air 07/28/18 22:13 07/28/18 22:48 07/28/18 23:13 Temperature 36.9 C Temperature Source Oral Sepsis Recent Fever Within 48 Hours Sepsis New/Unexplained Change in Mental Status Sepsis Action Taken by Nursing Pulse Rate Pulse Rate [Right Finger] 95 H 88 80 Pulse Rhythm Pulse Strength Respiratory Rate 22 20 20 Respiratory Effort / Characteristics Non-Labored Spontaneous Respiratory Depth Normal Respiratory Pattern Blood Pressure Blood Pressure [Right Arm] 183/90 H 130/50 L 177/75 H Blood Pressure Mean Blood Pressure Mean [Right Arm] 121 76 109 Blood Pressure Position Pulse Oximetry 95 96 96 Oxygen Delivery Method Room Air Room Air Room Air 07/29/18 00:14 Temperature 36.5 C Temperature Source Oral Sepsis Recent Fever Within 48 Hours Sepsis New/Unexplained Change in Mental Status Sepsis Action Taken by Nursing Pulse Rate Pulse Rate [Right Finger] 96 H Pulse Rhythm Pulse Strength Respiratory Rate 21 Respiratory Effort / Characteristics Spontaneous Splinting (from pain) Respiratory Depth Normal Respiratory Pattern Blood Pressure Blood Pressure [Right Arm] 170/63 H Blood Pressure Mean Blood Pressure Mean [Right Arm] 98 Blood Pressure Position Pulse Oximetry 93 Oxygen Delivery Method Room Air Laboratory Data Result diagrams: 07/28/18 19:27 07/28/18 23:42 Lab Results 07/28/18 07/28/18 07/28/18 Range/Units 19:27 19:27 21:34 WBC 6.52 (4.8-10.8) K/uL RBC 3.59 L (4.2-5.4) M/uL Hgb 10.0 L (12.0-16.0) g/dL Hct 32.7 L (37-47) % MCV 91.1 (80-100) fL MCH 27.9 (25-34) pg MCHC 30.6 L (32-36) g/dL RDW Std Deviation 60.1 H (36.4-46.3) fL RDW Coeff of Darci 18.2 H (11.5-14.5) % Plt Count 152 (130-400) K/uL MPV 9.7 (7.4-10.4) fL Immature Gran % (Auto) 0.2 % Neut % (Auto) 68.4 % Lymph % (Auto) 22.5 % [place] % (Auto) 6.3 % Eos % (Auto) 2.3 % Baso % (Auto) 0.3 % Immature Gran # (Auto) 0.01 (0.00-0.02) K/uL Neut # (Auto) 4.46 (1.4-6.5) K/uL Lymph # (Auto) 1.47 (1.2-3.4) K/uL [place] # (Auto) 0.41 (0.11-0.59) K/uL Eos # (Auto) 0.15 (0-0.5) K/uL Baso # (Auto) 0.02 (0-0.2) K/uL Sodium 137 (136-145) mmol/L Potassium 6.4 H* (3.5-5.1) mmol/L Chloride 104 (98-107) mmol/L Carbon Dioxide 30 (21-32) mmol/L Anion Gap 3.0 (3-11) BUN 49 H (7-18) mg/dl Creatinine 4.91 H* (0.6-1.2) mg/dl Est Cr Clr Drug Dosing 6.6 ml/min Est GFR ( Amer) 9.3 Est GFR (Non-Af Amer) 8.0 BUN/Creatinine Ratio 10.1 (10-20) Glucose 98 (70-99) mg/dl POC Glucose (70-99) Calcium 9.6 (8.5-10.1) mg/dl Total Bilirubin 0.4 (0.2-1) mg/dl AST 36 (15-37) U/L ALT 39 (12-78) U/L Alkaline Phosphatase 192 H (45-117) U/L Total Protein 7.7 (6.4-8.2) gm/dl Albumin 2.9 L (3.4-5.0) gm/dl Globulin 4.8 H (2.5-4.0) gm/dl Albumin/Globulin Ratio 0.6 L (0.9-2) Urine Color Yellow Urine Appearance Turbid H (Clear) Urine pH >= 9.0 H (4.5-7.5) Ur Specific Line [place] 1.014 (1.000-1.030) Urine Protein 2+ H (Negative) Urine Glucose (UA) Negative (Negative) Urine Ketones Negative (Negative) Urine Blood 1+ H (Negative) Urine Nitrite Positive H (Negative) Urine Bilirubin Negative (Negative) Urine Urobilinogen Negative (Negative) Ur Leukocyte Esterase 3+ H (Negative) Urine WBC (Auto) >30 H (0-5) /hpf Urine RBC (Auto) 10-30 H (0-4) /hpf U Hyaline Cast (Auto) 1-5 (0-5) /lpf U Epithel Cells (Auto) 0-5 (0-5) /lpf Urine Bacteria (Auto) 2+ H (Negative) Urine Yeast Not Reportable 07/28/18 07/28/18 07/29/18 Range/Units 22:05 23:42 00:32 WBC (4.8-10.8) K/uL RBC (4.2-5.4) M/uL Hgb (12.0-16.0) g/dL Hct (37-47) % MCV (80-100) fL MCH (25-34) pg MCHC (32-36) g/dL RDW Std Deviation (36.4-46.3) fL RDW Coeff of Darci (11.5-14.5) % Plt Count (130-400) K/uL MPV (7.4-10.4) fL Immature Gran % (Auto) % Neut % (Auto) % Lymph % (Auto) % [place] % (Auto) % Eos % (Auto) % Baso % (Auto) % Immature Gran # (Auto) (0.00-0.02) K/uL Neut # (Auto) (1.4-6.5) K/uL Lymph # (Auto) (1.2-3.4) K/uL [place] # (Auto) (0.11-0.59) K/uL Eos # (Auto) (0-0.5) K/uL Baso # (Auto) (0-0.2) K/uL Sodium 140 (136-145) mmol/L Potassium 5.6 H (3.5-5.1) mmol/L Chloride 106 (98-107) mmol/L Carbon Dioxide 27 (21-32) mmol/L Anion Gap 7.0 (3-11) BUN 51 H (7-18) mg/dl Creatinine 5.05 H* (0.6-1.2) mg/dl Est Cr Clr Drug Dosing 6.5 ml/min Est GFR ( Amer) 8.9 Est GFR (Non-Af Amer) 7.7 BUN/Creatinine Ratio 10.0 (10-20) Glucose 39 L* (70-99) mg/dl POC Glucose 101 H 56 L* (70-99) Calcium 9.7 (8.5-10.1) mg/dl Total Bilirubin (0.2-1) mg/dl AST (15-37) U/L ALT (12-78) U/L Alkaline Phosphatase (45-117) U/L Total Protein (6.4-8.2) gm/dl Albumin (3.4-5.0) gm/dl Globulin (2.5-4.0) gm/dl Albumin/Globulin Ratio (0.9-2) Urine Color Urine Appearance (Clear) Urine pH (4.5-7.5) Ur Specific Line [place] (1.000-1.030) Urine Protein (Negative) Urine Glucose (UA) (Negative) Urine Ketones (Negative) Urine Blood (Negative) Urine Nitrite (Negative) Urine Bilirubin (Negative) Urine Urobilinogen (Negative) Ur Leukocyte Esterase (Negative) Urine WBC (Auto) (0-5) /hpf Urine RBC (Auto) (0-4) /hpf U Hyaline Cast (Auto) (0-5) /lpf U Epithel Cells (Auto) (0-5) /lpf Urine Bacteria (Auto) (Negative) Urine Yeast 07/29/18 Range/Units 00:57 WBC (4.8-10.8) K/uL RBC (4.2-5.4) M/uL Hgb (12.0-16.0) g/dL Hct (37-47) % MCV (80-100) fL MCH (25-34) pg MCHC (32-36) g/dL RDW Std Deviation (36.4-46.3) fL RDW Coeff of Darci (11.5-14.5) % Plt Count (130-400) K/uL MPV (7.4-10.4) fL Immature Gran % (Auto) % Neut % (Auto) % Lymph % (Auto) % [place] % (Auto) % Eos % (Auto) % Baso % (Auto) % Immature Gran # (Auto) (0.00-0.02) K/uL Neut # (Auto) (1.4-6.5) K/uL Lymph # (Auto) (1.2-3.4) K/uL [place] # (Auto) (0.11-0.59) K/uL Eos # (Auto) (0-0.5) K/uL Baso # (Auto) (0-0.2) K/uL Sodium (136-145) mmol/L Potassium (3.5-5.1) mmol/L Chloride (98-107) mmol/L Carbon Dioxide (21-32) mmol/L Anion Gap (3-11) BUN (7-18) mg/dl Creatinine (0.6-1.2) mg/dl Est Cr Clr Drug Dosing ml/min Est GFR ( Amer) Est GFR (Non-Af Amer) BUN/Creatinine Ratio (10-20) Glucose (70-99) mg/dl POC Glucose 60 L* (70-99) Calcium (8.5-10.1) mg/dl Total Bilirubin (0.2-1) mg/dl AST (15-37) U/L ALT (12-78) U/L Alkaline Phosphatase (45-117) U/L Total Protein (6.4-8.2) gm/dl Albumin (3.4-5.0) gm/dl Globulin (2.5-4.0) gm/dl Albumin/Globulin Ratio (0.9-2) Urine Color Urine Appearance (Clear) Urine pH (4.5-7.5) Ur Specific Line [place] (1.000-1.030) Urine Protein (Negative) Urine Glucose (UA) (Negative) Urine Ketones (Negative) Urine Blood (Negative) Urine Nitrite (Negative) Urine Bilirubin (Negative) Urine Urobilinogen (Negative) Ur Leukocyte Esterase (Negative) Urine WBC (Auto) (0-5) /hpf Urine RBC (Auto) (0-4) /hpf U Hyaline Cast (Auto) (0-5) /lpf U Epithel Cells (Auto) (0-5) /lpf Urine Bacteria (Auto) (Negative) Urine Yeast Administered Medications Discontinued Medications Bumetanide (Bumex) Confirm Administered Dose 2 mg IV .STK-MED ONE Stop: 07/28/18 22:03 Last Admin: 07/28/18 22:11 Dose: Not Given Documented by: [id number] Dextrose (Dextrose 50%) 50 ml IV NOW STA Stop: 07/28/18 21:42 Last Admin: 07/28/18 22:06 Dose: 50 ml Documented by: [id number] Fentanyl Citrate (Fentanyl Citrate) 12.5 mcg IV NOW STA Stop: 07/28/18 23:13 Last Admin: 07/28/18 23:32 Dose: Not Given Documented by: [id number] Fentanyl Citrate (Fentanyl Citrate) Confirm Administered Dose 100 mcg .ROUTE .STK-MED ONE Stop: 07/28/18 23:17 Last Increment: 07/28/18 23:19 Dose: 12.5 mcg Documented by: [id number] Bumetanide 2 mg/ Syringe 8 mls @ 4 mls/min IV ONE ONE Stop: 07/28/18 21:42 Last Admin: 07/28/18 22:04 Dose: 4 mls/min Documented by: [id number] Insulin Human Regular (Novolin R U-100 Per Unit) 10 units IV NOW STA Stop: 07/28/18 21:36 Last Admin: 07/28/18 22:06 Dose: 10 units Documented by: [id number] Cosigned by: [id number] Morphine Sulfate (Morphine Sulfate) 4 mg IV NOW STA Stop: 07/28/18 19:17 Last Admin: 07/28/18 19:28 Dose: 4 mg Documented by: [id number] Sodium Polystyrene Sulfonate (Kayexalate) 30 gm PO NOW STA Stop: 07/28/18 21:31 Last Admin: 07/28/18 22:12 Dose: Not Given Documented by: [id number] Sodium Polystyrene Sulfonate (Kayexalate) Confirm Administered Dose 30 gm .ROUTE .STK-MED ONE Stop: 07/28/18 22:10 Last Admin: 07/28/18 22:11 Dose: 30 gm Documented by: [id number] Discharge Plan Visit Data *Final* Discharge Date/Time: 07/28/18 23:51 Chief Complaint: Back Injury/Pain Stated Complaint: BACK PAIN ED Provider: Kodi Langley ED Midlevel Provider: Nova Jordan Discharge Problem: Acute hyperkalemia, Hypoglycemia, Acute exacerbation of chronic low back pain Patient Disposition: Admitted As Inpatient Discharge Instructions Interventions: ED Discharge Assessment Last Done: 07/28/18 23:51
[2018-07-28 20:14] LABS: Albumin Globulin Ratio 0.6 (0.9-2); Albumin Level 2.9 gm/dl (3.4-5.0); BUN Creatinine Ratio 10.1 (10-20); Bilirubin,Total 0.4 mg/dl (0.2-1); Calcium 9.6 mg/dl (8.5-10.1); Creatinine Clr Calc Pharmacy 6.6 ml/min; Est GFR (African American) 9.3; Globulin 4.8 gm/dl (2.5-4.0); Potassium 6.4 mmol/L (3.5-5.1); Total Protein 7.7 gm/dl (6.4-8.2)
--- NOTE | 2018-07-28 20:31 | CT Scan Report ---
CT lumbar spine wo con CT DOSE: 260.56 mGy.cm HISTORY: Pain lbp, hx of vertebral fxs TECHNIQUE: Multiaxial CT images of the lumbar spine were performed and reformatted in the sagittal an d coronal plane without the use of contrast. A dose lowering technique was utilized adhering to the principles of ALARA. COMPARISON: 07/13/2018 FINDINGS: No change compared to the prior study. Diffuse osteoporosis. Mild compression deformity L3 unchanged from the prior study. 3 mm retropulsion of the superior endplate also unchanged. Subacute compression deformities of L4 and L5 also unchanged. No evidence for new compression deformity compared to the prior study. Study remains negative for sig nificant narrowing of the spinal canal. IMPRESSION: 1. Diffuse osteoporosis. 2. Multiple subacute to chronic compression deformities unchanged from the prior study. 3. No evidence for a new or interval process. The above report was generated using voice recognition software. It may contain grammatical, syntax or spelling errors. Electronically signed by: Zachery Vazquez M.D. 07/28/2018 8:30 PM
--- NOTE | 2018-07-28 20:36 | CT Scan Report ---
CT abd pelvis wo con CT DOSE: HISTORY: Pain. Constipation. lbp, flank pain, constipation, HD pt TECHNIQUE: Multiaxial CT images of the abdomen and pelvis were performed without contrast. A dose lo wering technique was utilized adhering to the principles of ALARA. COMPARISON STUDY: 07/13/2018 FINDINGS: Mild bibasilar dependent atelectasis. Liver spleen and pancreas are unremarkable. Kidneys a re atrophic. Bowel pattern again is nonobstructive. Right lateral abdominal hernia containing a short segment bowel loop. This appears to be a nonobstructive finding. Normal appendix. Additional suprapu bic ventral hernia also containing a short segment loop of nonobstructed bowel. Moderate fecal load throughout the colon. No evidence for true obstructive pattern. Bladder is midlin e. Degenerative change, osteoporosis, and a wedge deformities of the lumbosacral spine are again note d and are unchanged. IMPRESSION: 1. Nonobstructive bowel pattern. 2. Right flank hernia containing a nonobstructive loop of bowel. 3. Moderate fecal load throughout the colon. 4. Changes of the lumbar spine including several wedge deformities considered unchanged from the prio r study. 5. Note is made of a suprapubic ventral hernia containing a nonobstructive loop of bowel. This is als o unaltered from the prior study. 6. No acute process of the abdomen or pelvis The above report was generated using voice recognition software. It may contain grammatical, syntax or spelling errors. Electronically signed by: Zachery Vazquez M.D. 07/28/2018 8:35 PM
[2018-07-28] MEDS ORDERED: SODIUM POLYSTYRENE SULFONATE 30 GM/120 ML UDP PO STA (21:30)
[2018-07-28] MEDS ORDERED: NovoLIN-R INSULIN PER UNIT CHARGE IV STA (21:35)
[2018-07-28] MEDS ORDERED: DEXTROSE 50% 50 ML SYRINGE IV STA (21:41)
[2018-07-28] MEDS ORDERED: BUMETANIDE 2 MG in SYRINGE 0 ML IV ONE (21:41)
[2018-07-28] MEDS ORDERED: BUMETANIDE SOLN 1 MG/4 ML VIAL IV ONE (22:02)
[2018-07-28 22:09] LABS: Appearance Urine Turbid (Clear); Bacteria Urine Automated 2+ (Negative); Bilirubin Urine Negative (Negative); Blood Urine 1+ (Negative); Color Urine Yellow; Epithelial Cell Urine Auto 0-5 /lpf (0-5); Glucose Urine UA Negative (Negative); Ketones Urine Negative (Negative); Leukocyte Esterase Urine 3+ (Negative); Nitrite Urine Positive (Negative); Specific Gravity Urine 1.014 (1.000-1.030); Urobilinogen Urine Negative (Negative); WBC Urine Automated >30 /hpf (0-5); pH Urine >= 9.0 (4.5-7.5)
[2018-07-28] MEDS ORDERED: SODIUM POLYSTYRENE SULFONATE 15G/60ML SUSP ONE (22:09)
[2018-07-28 22:21] LABS: Protein Urine 2+ (Negative)
--- NOTE | 2018-07-28 22:51 | Emergency Department Note ---
ED Visit Note Patient was seen by our PA/FILM LIBRARY CLERK. I was involved in the patient's care and did evaluate the patient myself. I was involved in the care throughout the ER stay. The patient presents with back pain. She does have a higher potassium, she is a dialysis patient and due for dialysis tomorrow. Her back pain is not controlled as an outpatient. She was told at one point that she may require lumbar surgery. Patient will be seen by the hospitalist group for potential hospitalization. Medication for her higher potassium has been administered. .
[2018-07-28] MEDS ORDERED: fentaNYL citrate 100 MCG/2 ML VIAL IV STA (23:12)
[2018-07-28] MEDS ORDERED: fentaNYL citrate 100 MCG/2 ML VIAL ONE (23:16)
--- NOTE | 2018-07-28 23:47 | History & Physical Report ---
Date of Service July 28, 2018 Assessment & Plan (1) Back pain: Patient with osteoporosis, multiple compression fractures. No history of fall or trauma. No evidence of neurologic compromise. Patient has been seen by Ortho during past admissions and was recommended conservative management and PT. Patient presents today with severe pain. States that it never really improved. It seems as though the patient has not been adherent with the recommend regimen of medications. She has only been taking the Tramadol but not Naproxen, Lidoderm or Oxycodone. Cannot definitively say that conservative measures have failed. Patient wants to have surgery. -Observation to medical floor -Pain control with Tramadol, Lidoderm, Naproxen -Dilaudid 0.5mg IV q 4 hours PRN - patient is ESRD -PT/OT evaluation -Will re-consult Ortho-Spine to discuss possible intervention (2) Lumbar compression fracture: As above -Continue Calcium and Vitamin D supplements Present on Admission?: Yes (3) ESRD (end stage renal disease) on dialysis: Patient receives HD q MWF through LUE AV fistula. She follows with Dr. Newby. Last full treatment was Sunday. Her K today is elevated at 6.4. No EKG changes. She was administered insulin/D50, Kayexelate in ER with repeat BMP ordered and pending. 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 Second transplant in 2006. Stable. No evidence of failure or rejection. -Continue Everolimus -Nebivolol (5) Constipation: Patient was administered Kayelelate in the ER which may solve the problem. May be significantly contributing to back pain. -Dulcolax suppository -Colace -Miralax PRN -Continue Senna (6) HTN (hypertension): Blood pressure mildly elevated at present -Continue Hydralazine -Nebivolol -Continue to monitor (7) HLD (hyperlipidemia): Chronic -Continue Atorvastatin (8) Anemia: Stable. No active bleeding -CBC in AM F/E/N- Heplock. Repeat BMP to assess K in response to treatments provided in ER. Telemetry monitoring. Renal diet as tolerated Ppx - Heparin for DVT ppx Code - DNR Dispo - Observation to medical with tele History of Present Illness Chief Complaint: back pain, constipation, hyperkalemia Primary Care Provider: NO PCP Diane Li is a 78yo H female with history of ESRD on HD, HTN, HLP, s/p orthotopic liver transplant x 2, multiple lumbar compression fractures pre senting with severe low back pain and constipation. Patient was admitted to the hospital 06/03/18 - 06/06/18 with complaint of severe lower back pain. She was found to have compression fractures at L4 and L5 (acute vs subacute). She was evaluated by Ortho-spine on 06/04 and was planned to pursue conservative management. She was started on Naproxen which improved her pain. She was discharged to [facility] for rehabilitation. Patient returned to the ER with back pain and was admitted from 07/13/18 - 07/16/18. At that time she was found to have new L3 compression fracture. Patient was continued on conservative therapy and discharged to [facility] rehab. She was to followup with Ortho-spine after rehab to discuss possible kyphoplasty as an outpatient. She returns to the ER today with severe back pain and constipation. She is very frustrated that she continues to have the pain and that it has never really improved. Pain today is in lower back and her bilateral flanks. Pain is 9/10, worse with movement. Patient also complaining of constipation, no BM x 3 days. Patient states that she is not using Tylenol, Lidoderm, Naproxen or Oxycodone at home. She is only taking the Tramadol. She is able to ambulate with pain. No numbness/weakness. No bowel or bladder incontinence or saddle anesthesia. Patient denies fevers/chills/trauma/falls. She presents with her son who says he will not take her home while she is having this pain. CT Lumbar spine obtained which shows diffuse osteoporosis, mild compression deformity at L3, subacute deformities of L4 and L5 also unchanged. No new lesions. K=6.4. No EKG changes. Patient receives HD q M/W/F. EKG without changes. Patient still makes some urine. ER Course: Bumex 2mg IV, D50/Insulin 10u, Morphine 4mg, Fentanyl 12.5mcg, K ayexelate 30gm Allergies Allergy/AdvReac Type Severity Reaction Status Date / Time No Known Allergies Allergy Unverified 04/14/19 19:47 Home Medications Home Medications Medication Instructions Recorded Confirmed Type ascorbic acid (vitamin C) [Vitamin 1,000 mg PO QDL 06/03/18 07/28/18 History C] atorvastatin 20 mg PO HS 06/03/18 07/28/18 History calcium carbonate-vitamin D3 1 tab PO BID 06/03/18 07/28/18 History [Calcium 500 + D] cholecalciferol (vitamin D3) 2,000 unit PO HS 06/03/18 07/28/18 History [Vitamin D3] everolimus (immunosuppressive) 2 mg PO BID 06/03/18 07/28/18 History ferrous sulfate 325 mg PO HS 06/03/18 07/28/18 History hydralazine 10 mg PO HS 06/03/18 07/28/18 History multivitamin 1 tab PO QAM 06/03/18 07/28/18 History nebivolol 10 mg PO QAM 06/03/18 07/28/18 History naproxen 250 mg PO BID #1 tab 06/06/18 07/28/18 Rx oxycodone 5 mg PO Q4H PRN #4 tab 06/06/18 07/28/18 Rx acetaminophen [Pain Reliever] 500 mg PO Q4H PRN #60 tab 07/16/18 07/28/18 Rx lidocaine 1 patch TRANSDERMAL QAM #30 ea 07/16/18 07/28/18 Rx sennosides-docusate sodium [Senna 2 tab PO QAM #60 tab 07/16/18 07/28/18 Rx with Docusate Sodium] tramadol 50 mg PO Q4H PRN #60 tab 07/16/18 07/28/18 Rx Past Med/Surg History Medical History HTN (hypertension) (Chronic) HLD (hyperlipidemia) (Chronic) Osteoporosis (Chronic) Anemia (Chronic) Dyspnea History of renal dialysis Hx of compression fracture of spine Surgical History Liver transplant status (Chronic) S/P tubal ligation (Chronic) H/O detached retina repair (Chronic) S/P cataract extraction and insertion of intraocular lens (Chronic) 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, ?CMV Social History Preferred Language: Sinhala Beliefs That Will Affect Care: None marital status: Single Current Living Situation: Alone Current Living Situation Comment: lives with daughter current occupational status: retired Feels Safe at Home: Yes Smoking Status: Former smoker Hx Alcohol Use: No Hx Substance Use: No Review of Systems All systems reviewed & are unremarkable except as noted in HPI & below Physical Exam Vital Signs (Past 24 Hours): Last Vital Signs Pulse 88 07/28/18 22:48 Resp 20 07/28/18 22:48 BP 130/50 L 07/28/18 22:48 Pulse Ox 96 07/28/18 22:48 Physical Exam: General: patient anxious and upset, NAD, non-toxic in appearance Skin: warm, dry, intact, no rashes or lesions HEENT: NC/AT, PERRL, EOMI, anicteric sclera, conjunctiva without injection, external ear normal to inspection and nontender, nares patent, moist mucus membranes, dentition intact, no oropharyngeal lesions, neck supple, trachea midline, no LAD, no thyromegaly, no JVD Heart: +S1/S2, regular Lungs: equal air entry bilaterally, no rales/rhonchi/wheezes Abd: +BS, soft, NT/ND, no masses/organomegaly/ascites Ext: warm, 2+ pulses in UE/LE bilaterally, no clubbing/cyanosis or edema, AV fistula in LUE with palpable thrill Neuro: nonfocal, patient AA&O x 4, speech intact, no facial droop, moving all extremities on command with equal strength 5/5 Results & Data Laboratory Results Lab Results 07/28/18 07/28/18 07/28/18 Range/Units 19:27 19:27 21:34 WBC 6.52 (4.8-10.8) K/uL RBC 3.59 L (4.2-5.4) M/uL Hgb 10.0 L (12.0-16.0) g/dL Hct 32.7 L (37-47) % MCV 91.1 (80-100) fL MCH 27.9 (25-34) pg MCHC 30.6 L (32-36) g/dL RDW Std Deviation 60.1 H (36.4-46.3) fL RDW Coeff of Darci 18.2 H (11.5-14.5) % Plt Count 152 (130-400) K/uL MPV 9.7 (7.4-10.4) fL Immature Gran % (Auto) 0.2 % Neut % (Auto) 68.4 % Lymph % (Auto) 22.5 % Galax % (Auto) 6.3 % Eos % (Auto) 2.3 % Baso % (Auto) 0.3 % Immature Gran # (Auto) 0.01 (0.00-0.02) K/uL Neut # (Auto) 4.46 (1.4-6.5) K/uL Lymph # (Auto) 1.47 (1.2-3.4) K/uL Galax # (Auto) 0.41 (0.11-0.59) K/uL Eos # (Auto) 0.15 (0-0.5) K/uL Baso # (Auto) 0.02 (0-0.2) K/uL Sodium 137 (136-145) mmol/L Potassium 6.4 H* (3.5-5.1) mmol/L Chloride 104 (98-107) mmol/L Carbon Dioxide 30 (21-32) mmol/L Anion Gap 3.0 (3-11) BUN 49 H (7-18) mg/dl Creatinine 4.91 H* (0.6-1.2) mg/dl Est Cr Clr Drug Dosing 6.6 ml/min Est GFR ( Amer) 9.3 Est GFR (Non-Af Amer) 8.0 BUN/Creatinine Ratio 10.1 (10-20) Glucose 98 (70-99) mg/dl POC Glucose (70-99) Calcium 9.6 (8.5-10.1) mg/dl Total Bilirubin 0.4 (0.2-1) mg/dl AST 36 (15-37) U/L ALT 39 (12-78) U/L Alkaline Phosphatase 192 H (45-117) U/L Total Protein 7.7 (6.4-8.2) gm/dl Albumin 2.9 L (3.4-5.0) gm/dl Globulin 4.8 H (2.5-4.0) gm/dl Albumin/Globulin Ratio 0.6 L (0.9-2) Urine Color Yellow Urine Appearance Turbid H (Clear) Urine pH >= 9.0 H (4.5-7.5) Ur Specific Taylor 1.014 (1.000-1.030) Urine Protein 2+ H (Negative) Urine Glucose (UA) Negative (Negative) Urine Ketones Negative (Negative) Urine Blood 1+ H (Negative) Urine Nitrite Positive H (Negative) Urine Bilirubin Negative (Negative) Urine Urobilinogen Negative (Negative) Ur Leukocyte Esterase 3+ H (Negative) Urine WBC (Auto) >30 H (0-5) /hpf Urine RBC (Auto) 10-30 H (0-4) /hpf U Hyaline Cast (Auto) 1-5 (0-5) /lpf U Epithel Cells (Auto) 0-5 (0-5) /lpf Urine Bacteria (Auto) 2+ H (Negative) Urine Yeast Not Reportable 07/28/18 Range/Units 22:05 WBC (4.8-10.8) K/uL RBC (4.2-5.4) M/uL Hgb (12.0-16.0) g/dL Hct (37-47) % MCV (80-100) fL MCH (25-34) pg MCHC (32-36) g/dL RDW Std Deviation (36.4-46.3) fL RDW Coeff of Darci (11.5-14.5) % Plt Count (130-400) K/uL MPV (7.4-10.4) fL Immature Gran % (Auto) % Neut % (Auto) % Lymph % (Auto) % Galax % (Auto) % Eos % (Auto) % Baso % (Auto) % Immature Gran # (Auto) (0.00-0.02) K/uL Neut # (Auto) (1.4-6.5) K/uL Lymph # (Auto) (1.2-3.4) K/uL Galax # (Auto) (0.11-0.59) K/uL Eos # (Auto) (0-0.5) K/uL Baso # (Auto) (0-0.2) K/uL Sodium (136-145) mmol/L Potassium (3.5-5.1) mmol/L Chloride (98-107) mmol/L Carbon Dioxide (21-32) mmol/L Anion Gap (3-11) BUN (7-18) mg/dl Creatinine (0.6-1.2) mg/dl Est Cr Clr Drug Dosing ml/min Est GFR ( Amer) Est GFR (Non-Af Amer) BUN/Creatinine Ratio (10-20) Glucose (70-99) mg/dl POC Glucose 101 H (70-99) Calcium (8.5-10.1) mg/dl Total Bilirubin (0.2-1) mg/dl AST (15-37) U/L ALT (12-78) U/L Alkaline Phosphatase (45-117) U/L Total Protein (6.4-8.2) gm/dl Albumin (3.4-5.0) gm/dl Globulin (2.5-4.0) gm/dl Albumin/Globulin Ratio (0.9-2) Urine Color Urine Appearance (Clear) Urine pH (4.5-7.5) Ur Specific Taylor (1.000-1.030) Urine Protein (Negative) Urine Glucose (UA) (Negative) Urine Ketones (Negative) Urine Blood (Negative) Urine Nitrite (Negative) Urine Bilirubin (Negative) Urine Urobilinogen (Negative) Ur Leukocyte Esterase (Negative) Urine WBC (Auto) (0-5) /hpf Urine RBC (Auto) (0-4) /hpf U Hyaline Cast (Auto) (0-5) /lpf U Epithel Cells (Auto) (0-5) /lpf Urine Bacteria (Auto) (Negative) Urine Yeast Diagnostic Findings CT lumbar spine wo con CT DOSE: 260.56 mGy.cm HISTORY: Pain lbp, hx of vertebral fxs TECHNIQUE: Multiaxial CT images of the lumbar spine were performed and reformatted in the sagittal and coronal plane without the use of contrast. A dose lowering technique was utilized adhering to the principles of ALARA. COMPARISON: 07/13/2018 FINDINGS: No change compared to the prior study. Diffuse osteoporosis. Mild compression deformity L3 unchanged from the prior study. 3 mm retropulsion of the superior endplate also unchanged. Subacute compression deformities of L4 and L5 also unchanged. No evidence for new compression deformity compared to the prior study. Study remains negative for significant narrowing of the spinal canal. IMPRESSION: 1. Diffuse osteoporosis. 2. Multiple subacute to chronic compression deformities unchanged from the prior study. 3. No evidence for a new or interval process. The above report was generated using voice recognition software. It may contain grammatical, syntax or spelling errors. Electronically signed by: Zachery Vazquez M.D. 07/28/2018 8:30 PM Dictated: 07/28/182026 Transcribed: 07/28/182026 CT abd pelvis wo con CT DOSE: HISTORY: Pain. Constipation. lbp, flank pain, constipation, HD pt TECHNIQUE: Multiaxial CT images of the abdomen and pelvis were performed without contrast. A dose lowering technique was utilized adhering to the principles of ALARA. COMPARISON STUDY: 07/13/2018 FINDINGS: Mild bibasilar dependent atelectasis. Liver spleen and pancreas are unremarkable. Kidneys are atrophic. Bowel pattern again is nonobstructive. Right lateral abdominal hernia containing a short segment bowel loop. This appears to be a nonobstructive finding. Normal appendix. Additional suprapubic ventral hernia also containing a short segment loop of nonobstructed bowel. Moderate fecal load throughout the colon. No evidence for true obstructive pattern. Bladder is midline. Degenerative change, osteoporosis, and a wedge deformities of the lumbosacral spine are again noted and are unchanged. IMPRESSION: 1. Nonobstructive bowel pattern. 2. Right flank hernia containing a nonobstructive loop of bowel. 3. Moderate fecal load throughout the colon. 4. Changes of the lumbar spine including several wedge deformities considered unchanged from the prior study. 5. Note is made of a suprapubic ventral hernia containing a nonobstructive loop of bowel. This is also unaltered from the prior study. 6. No acute process of the abdomen or pelvis The above report was generated using voice recognition software. It may contain grammatical, syntax or spelling errors. ECG Additional Comments: NSR at 88bpm, No ischemic changes, HY=421, QRS=98, CUi=256 Code Status & VTE Plan Code Status DNR VTE Prophylaxis Plan VTE Prophylaxis will be ordered: Yes Critical Care Time Critical Care Time: No (1) Anemia Anemia type: due to chronic kidney disease (2) Back pain Back pain laterality: unspecified Back pain location: low back pain Chronicity: unspecified Sciatica presence: unspecified whether sciatica present Qualified Code(s): M54.5 - Low back pain (3) HLD (hyperlipidemia) Hyperlipidemia type: unspecified Qualified Code(s): E78.5 - Hyperlipidemia, unspecified (4) Lumbar compression fracture Encounter type: subsequent encounter Fracture healing: with routine healing Fracture type: closed Lumbar vertebra fracture level: L3 Qualified Code(s): S32.030D - Wedge compression fracture of third lumbar vertebra, subsequent encounter for fracture with routine healing (5) HTN (hypertension) Hypertension type: essential hypertension Qualified Code(s): I10 - Essential (primary) hypertension (6) Constipation Constipation type: unspecified constipation type Qualified Code(s): K59.00 - Constipation, unspecified
[2018-07-29] MEDS ORDERED: ONDANSETRON INJ 2 MG/ML 2 ML VIAL IV PRN (00:14)
[2018-07-29] MEDS ORDERED: HYDROmorphone INJ 0.5 MG/0.5 ML SYR IV PRN (00:14)
[2018-07-29] MEDS ORDERED: BISACODYL 10 MG SUPP PR STA ×2 (00:14→03:51)
[2018-07-29] MEDS ORDERED: POLYETHYLENE (MIRALAX) 17 GM PACK PO PRN (00:14)
[2018-07-29] MEDS ORDERED: ALUMINUM/MAGNESIUM SUSP 30 ML UDC PO PRN (00:14)
[2018-07-29] MEDS ORDERED: ACETAMINOPHEN 500 MG TAB PO PRN (00:14)
[2018-07-29 00:30] LABS: Calcium 9.7 mg/dl (8.5-10.1); Creatinine Clr Calc Pharmacy 6.5 ml/min; Est GFR (African American) 8.9; Est GFR (Non-African American) 7.7; Potassium 5.6 mmol/L (3.5-5.1)
[2018-07-29] MEDS: NAPROXEN 250 MG TAB PO SCH ×3 (01:19→20:40)
[2018-07-29] MEDS ORDERED: BISACODYL 10 MG SUPP PR ONE (03:54)
[2018-07-29 06:32] LABS: Hematocrit (blood only) 30.7 % (37-47); Hemoglobin 9.8 g/dL (12.0-16.0); Mean Corpuscular Hgb Conc 31.9 g/dL (32-36); Mean Corpuscular Volume 88.7 fL (80-100); Mean Platelet Volume 9.8 fL (7.4-10.4); Platelet Count 138 K/uL (130-400); RDW Coefficient of Variation 18.5 % (11.5-14.5); RDW Standard Deviation 58.8 fL (36.4-46.3); Red Blood Count 3.46 M/uL (4.2-5.4); White Blood Count 7.83 K/uL (4.8-10.8)
[2018-07-29 07:06] LABS: Basophils # (auto) 0.01 K/uL (0-0.2); Basophils % (auto) 0.1 %; Eosinophils # (auto) 0.05 K/uL (0-0.5); Eosinophils % (auto) 0.6 %; Immature Granulocytes # (auto) 0.03 K/uL (0.00-0.02); Immature Granulocytes % (auto) 0.4 %; Lymphocytes # (auto) 0.86 K/uL (1.2-3.4); Monocytes # (auto) 0.56 K/uL (0.11-0.59); Monocytes % (auto) 7.2 %; Neutrophils # (auto) 6.32 K/uL (1.4-6.5); Neutrophils % (auto) 80.7 %
[2018-07-29 07:20] LABS: BUN Creatinine Ratio 9.7 (10-20); Calcium 9.5 mg/dl (8.5-10.1); Creatinine Clr Calc Pharmacy 6.1 ml/min; Est GFR (African American) 8.4; Est GFR (Non-African American) 7.3; Magnesium 2.9 mg/dl (1.8-2.4); Potassium 6.1 mmol/L (3.5-5.1)
[2018-07-29 07:45] LABS: INR 1.1 (0.9-1.1); Partial Thromboplastin Ratio 0.9; Partial Thromboplastin Time 25.3 Seconds (21.0-31.0); Prothrombin Time 11.4 Seconds (9.0-12.0)
[2018-07-29] MEDS: CALCIUM 600MG + VIT D 400 IU TAB PO SCH ×2 (08:23→20:39)
[2018-07-29] MEDS: NEBIVOLOL HCL 5 MG TAB PO SCH (08:23)
[2018-07-29] MEDS: DOCUSATE SODIUM/SENNA 50/8.6MG TAB PO SCH (08:23)
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
[2018-07-29] MEDS ORDERED: EPOETIN ALFA 3,000 UNITS in SYRINGE 0 ML IV SCH (09:00)
[2018-07-29] MEDS: LIDOCAINE 5% 1 PATCH TD SCH (09:06)
[2018-07-29] MEDS: HEPARIN SOD 5,000 UNIT/0.5 ML VIAL SQ SCH ×3 (09:20→20:44)
[2018-07-29] MEDS: cefTRIAXone SODIUM 1,000 MG in DEXTROSE 5% 50 ML IV SCH (09:20)
[2018-07-29] MEDS: ASCORBIC ACID 500 MG TAB PO SCH (13:42)
--- NOTE | 2018-07-29 13:42 | Hospitalist Progress Note ---
Date of Service July 29, 2018 Assessment & Plan (1) Back pain: Patient with osteoporosis, multiple compression fractures. No history of fall or trauma. No evidence of neurologic compromise. Patient has been seen by Ortho during past admissions and was recommended conservative management and PT. Patient presents again with severe lower back pain radiating around to the left flank. States that it never really improved. It seems as though the patient has not been adherent with the recommend regimen of medications. She has only been taking the Tramadol but not Naproxen, Lidoderm or Oxycodone. Cannot definitively say that conservative measures have failed. Patient wants to have surgery. Pain persista and IV dilaudid helps temporarily Having allodynia in the left lower back region around to the LLQ -continue Pain control with Tramadol, Lidoderm, Naproxen, and IV DIlaudid-incr ease frequency of IV dilaudid to q3h -PT/OT evaluation -Will re-consult Ortho-Spine to discuss possible intervention-awaiting Dr. White's evalaution -consider Pain Management consult if no surgical intervention to be performed (2) Lumbar compression fracture: As above -Continue Calcium and Vitamin D supplements -consider Prolia treatment perhaps? (3) ESRD (end stage renal disease) on dialysis: Patient receives HD q MWF through LUE AV fistula. She follows with Dr. Newby. Her K elevated on admission at 6.4 and again today at 6.1. No EKG changes. 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 Second transplant in 2006. Stable. No evidence of failure or rejection. -Continue Everolimus-needs to bring in from home -continue Nebivolol (5) Constipation: Patient was administered Kayexlelate in the ER which did solve the problem. May be significantly contributing to back pain. -Dulcolax suppository x 1 given as well -continue senna/docusate 2 tabs daily -make Miralax 17 gms bid (6) HTN (hypertension): Blood pressure mildly elevated at present, could be secondary to pain -Continue Hydralazine 10mg qAM -continue Nebivolol -Continue to monitor (7) HLD (hyperlipidemia): Chronic -Continue Atorvastatin (8) Anemia: Stable. No active bleeding Anemia of chronic kidney disease -received EPO and is on po FeSO4 -CBC in AM (9) UTI (urinary tract infection): UA abnormal with nitrite on admission -start Rocephin -f/u Ur cx (10) Acute hyperkalemia: as above (11) Hypoglycemia: Blood glucose 39 on MA labs, likely secondary to receiving 10 units reg insulin IV last night along with her amp of D50 for her hyperkalemnia in settin gof ESRD -repeat accuchecks improved after treatment -not on insulin normally (12) Acute exacerbation of chronic low back pain: as above, due to lumbar compression fracture (13) Osteoporosis: -continue calcium and Vit D-consider adding on Prolia as outpt (14) DVT prophylaxis: Heparin SQ Dispo-remain hospitalized Subjective Pt just finished HD. Says she has severe pain in her left lower back radiating around to her left lower quadrant even with minimal movement. She has severe pain even with very light touch. Says dilaudid IV helps somewhat but not for very long. Denies radiating pains down her legs, denies numbness/tingling in legs, denies weakness Had a large BM this AM Tele with NSR, rates 70s-110s Review of Systems All systems reviewed & are unremarkable except as noted in HPI & below Physical Exam Vital Signs (Past 24 Hours): Last Vital Signs Temp 36.5 C 07/29/18 10:15 Pulse 69 07/29/18 13:00 Resp 16 07/29/18 07:47 BP 154/72 H 07/29/18 13:00 Pulse Ox 92 07/29/18 07:47 Constitutional: + acute distress (with minimal movement in bed) and + thin Eyes: PERRL, conjunctivae normal, anicteric sclerae ENMT: external ear and nose normal, oropharynx normal Neck: trachea midline, no thyromegaly Respiratory: normal respiratory effort, lungs clear to auscultation Cardiovascular: RRR, no murmur, no edema Gastrointestinal (Abdomen): normal bowel sounds, soft, nontender, no hepatosplenomegaly Musculoskeletal: Spine: lumbar spine normal to inspection and + paraspinal tenderness (exquisite pain with minimal palpation of left paraspinous muscles,flank); no scoliosis, no thoracic spinal tenderness and no thoraco- lumbar mass Extremities: + extremities abnormal to inspection (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), no cyanosis and no clubbing Skin: no rashes, warm and dry Neurologic: moves all extremities and awake; no focal motor deficits Psychiatric: A+Ox3, euthymic affect Results & Data Laboratory Results 07/29/18 07/29/18 07/29/18 Range/Units 07:27 06:40 06:08 WBC (4.8-10.8) K/uL RBC (4.2-5.4) M/uL Hgb (12.0-16.0) g/dL Hct (37-47) % MCV (80-100) fL MCH (25-34) pg MCHC (32-36) g/dL RDW Std Deviation (36.4-46.3) fL RDW Coeff of Darci (11.5-14.5) % Plt Count (130-400) K/uL MPV (7.4-10.4) fL Immature Gran % (Auto) % Neut % (Auto) % Lymph % (Auto) % Rankin % (Auto) % Eos % (Auto) % Baso % (Auto) % Immature Gran # (Auto) (0.00-0.02) K/uL Neut # (Auto) (1.4-6.5) K/uL Lymph # (Auto) (1.2-3.4) K/uL Rankin # (Auto) (0.11-0.59) K/uL Eos # (Auto) (0-0.5) K/uL Baso # (Auto) (0-0.2) K/uL PT 11.4 (9.0-12.0) Seconds INR 1.1 (0.9-1.1) APTT 25.3 (21.0-31.0) Seconds PTT Ratio 0.9 Sodium 136 (136-145) mmol/L Potassium 6.1 H* (3.5-5.1) mmol/L Chloride 105 (98-107) mmol/L Carbon Dioxide 28 (21-32) mmol/L Anion Gap 3.0 (3-11) BUN 51 H (7-18) mg/dl Creatinine 5.31 H* (0.6-1.2) mg/dl Est Cr Clr Drug Dosing 6.1 ml/min Est GFR ( Amer) 8.4 Est GFR (Non-Af Amer) 7.3 BUN/Creatinine Ratio 9.7 L (10-20) Glucose 113 H (70-99) mg/dl POC Glucose (70-99) Calcium 9.5 (8.5-10.1) mg/dl Magnesium 2.9 H (1.8-2.4) mg/dl Total Bilirubin (0.2-1) mg/dl AST (15-37) U/L ALT (12-78) U/L Alkaline Phosphatase (45-117) U/L Total Protein (6.4-8.2) gm/dl Albumin (3.4-5.0) gm/dl Globulin (2.5-4.0) gm/dl Albumin/Globulin Ratio (0.9-2) Urine Color Urine Appearance (Clear) Urine pH (4.5-7.5) Ur Specific [place] (1.000-1.030) Urine Protein (Negative) Urine Glucose (UA) (Negative) Urine Ketones (Negative) Urine Blood (Negative) Urine Nitrite (Negative) Urine Bilirubin (Negative) Urine Urobilinogen (Negative) Ur Leukocyte Esterase (Negative) Urine WBC (Auto) (0-5) /hpf Urine RBC (Auto) (0-4) /hpf U Hyaline Cast (Auto) (0-5) /lpf U Epithel Cells (Auto) (0-5) /lpf Urine Bacteria (Auto) (Negative) Urine Yeast Nasal Screen MRSA (PCR) Negative (Negative) 07/29/18 07/29/18 07/29/18 Range/Units 06:08 01:18 00:57 WBC 7.83 (4.8-10.8) K/uL RBC 3.46 L (4.2-5.4) M/uL Hgb 9.8 L (12.0-16.0) g/dL Hct 30.7 L (37-47) % MCV 88.7 (80-100) fL MCH 28.3 (25-34) pg MCHC 31.9 L (32-36) g/dL RDW Std Deviation 58.8 H (36.4-46.3) fL RDW Coeff of Darci 18.5 H (11.5-14.5) % Plt Count 138 (130-400) K/uL MPV 9.8 (7.4-10.4) fL Immature Gran % (Auto) 0.4 % Neut % (Auto) 80.7 % Lymph % (Auto) 11.0 % Rankin % (Auto) 7.2 % Eos % (Auto) 0.6 % Baso % (Auto) 0.1 % Immature Gran # (Auto) 0.03 H (0.00-0.02) K/uL Neut # (Auto) 6.32 (1.4-6.5) K/uL Lymph # (Auto) 0.86 L (1.2-3.4) K/uL Rankin # (Auto) 0.56 (0.11-0.59) K/uL Eos # (Auto) 0.05 (0-0.5) K/uL Baso # (Auto) 0.01 (0-0.2) K/uL PT (9.0-12.0) Seconds INR (0.9-1.1) APTT (21.0-31.0) Seconds PTT Ratio Sodium (136-145) mmol/L Potassium (3.5-5.1) mmol/L Chloride (98-107) mmol/L Carbon Dioxide (21-32) mmol/L Anion Gap (3-11) BUN (7-18) mg/dl Creatinine (0.6-1.2) mg/dl Est Cr Clr Drug Dosing ml/min Est GFR ( Amer) Est GFR (Non-Af Amer) BUN/Creatinine Ratio (10-20) Glucose (70-99) mg/dl POC Glucose 110 H 60 L* (70-99) Calcium (8.5-10.1) mg/dl Magnesium (1.8-2.4) mg/dl Total Bilirubin (0.2-1) mg/dl AST (15-37) U/L ALT (12-78) U/L Alkaline Phosphatase (45-117) U/L Total Protein (6.4-8.2) gm/dl Albumin (3.4-5.0) gm/dl Globulin (2.5-4.0) gm/dl Albumin/Globulin Ratio (0.9-2) Urine Color Urine Appearance (Clear) Urine pH (4.5-7.5) Ur Specific [place] (1.000-1.030) Urine Protein (Negative) Urine Glucose (UA) (Negative) Urine Ketones (Negative) Urine Blood (Negative) Urine Nitrite (Negative) Urine Bilirubin (Negative) Urine Urobilinogen (Negative) Ur Leukocyte Esterase (Negative) Urine WBC (Auto) (0-5) /hpf Urine RBC (Auto) (0-4) /hpf U Hyaline Cast (Auto) (0-5) /lpf U Epithel Cells (Auto) (0-5) /lpf Urine Bacteria (Auto) (Negative) Urine Yeast Nasal Screen MRSA (PCR) (Negative) 07/29/18 07/28/18 07/28/18 Range/Units 00:32 23:42 22:05 WBC (4.8-10.8) K/uL RBC (4.2-5.4) M/uL Hgb (12.0-16.0) g/dL Hct (37-47) % MCV (80-100) fL MCH (25-34) pg MCHC (32-36) g/dL RDW Std Deviation (36.4-46.3) fL RDW Coeff of Darci (11.5-14.5) % Plt Count (130-400) K/uL MPV (7.4-10.4) fL Immature Gran % (Auto) % Neut % (Auto) % Lymph % (Auto) % Rankin % (Auto) % Eos % (Auto) % Baso % (Auto) % Immature Gran # (Auto) (0.00-0.02) K/uL Neut # (Auto) (1.4-6.5) K/uL Lymph # (Auto) (1.2-3.4) K/uL Rankin # (Auto) (0.11-0.59) K/uL Eos # (Auto) (0-0.5) K/uL Baso # (Auto) (0-0.2) K/uL PT (9.0-12.0) Seconds INR (0.9-1.1) APTT (21.0-31.0) Seconds PTT Ratio Sodium 140 (136-145) mmol/L Potassium 5.6 H (3.5-5.1) mmol/L Chloride 106 (98-107) mmol/L Carbon Dioxide 27 (21-32) mmol/L Anion Gap 7.0 (3-11) BUN 51 H (7-18) mg/dl Creatinine 5.05 H* (0.6-1.2) mg/dl Est Cr Clr Drug Dosing 6.5 ml/min Est GFR ( Amer) 8.9 Est GFR (Non-Af Amer) 7.7 BUN/Creatinine Ratio 10.0 (10-20) Glucose 39 L* (70-99) mg/dl POC Glucose 56 L* 101 H (70-99) Calcium 9.7 (8.5-10.1) mg/dl Magnesium (1.8-2.4) mg/dl Total Bilirubin (0.2-1) mg/dl AST (15-37) U/L ALT (12-78) U/L Alkaline Phosphatase (45-117) U/L Total Protein (6.4-8.2) gm/dl Albumin (3.4-5.0) gm/dl Globulin (2.5-4.0) gm/dl Albumin/Globulin Ratio (0.9-2) Urine Color Urine Appearance (Clear) Urine pH (4.5-7.5) Ur Specific [place] (1.000-1.030) Urine Protein (Negative) Urine Glucose (UA) (Negative) Urine Ketones (Negative) Urine Blood (Negative) Urine Nitrite (Negative) Urine Bilirubin (Negative) Urine Urobilinogen (Negative) Ur Leukocyte Esterase (Negative) Urine WBC (Auto) (0-5) /hpf Urine RBC (Auto) (0-4) /hpf U Hyaline Cast (Auto) (0-5) /lpf U Epithel Cells (Auto) (0-5) /lpf Urine Bacteria (Auto) (Negative) Urine Yeast Nasal Screen MRSA (PCR) (Negative) 07/28/18 07/28/18 07/28/18 Range/Units 21:34 19:27 19:27 WBC 6.52 (4.8-10.8) K/uL RBC 3.59 L (4.2-5.4) M/uL Hgb 10.0 L (12.0-16.0) g/dL Hct 32.7 L (37-47) % MCV 91.1 (80-100) fL MCH 27.9 (25-34) pg MCHC 30.6 L (32-36) g/dL RDW Std Deviation 60.1 H (36.4-46.3) fL RDW Coeff of Darci 18.2 H (11.5-14.5) % Plt Count 152 (130-400) K/uL MPV 9.7 (7.4-10.4) fL Immature Gran % (Auto) 0.2 % Neut % (Auto) 68.4 % Lymph % (Auto) 22.5 % Rankin % (Auto) 6.3 % Eos % (Auto) 2.3 % Baso % (Auto) 0.3 % Immature Gran # (Auto) 0.01 (0.00-0.02) K/uL Neut # (Auto) 4.46 (1.4-6.5) K/uL Lymph # (Auto) 1.47 (1.2-3.4) K/uL Rankin # (Auto) 0.41 (0.11-0.59) K/uL Eos # (Auto) 0.15 (0-0.5) K/uL Baso # (Auto) 0.02 (0-0.2) K/uL PT (9.0-12.0) Seconds INR (0.9-1.1) APTT (21.0-31.0) Seconds PTT Ratio Sodium 137 (136-145) mmol/L Potassium 6.4 H* (3.5-5.1) mmol/L Chloride 104 (98-107) mmol/L Carbon Dioxide 30 (21-32) mmol/L Anion Gap 3.0 (3-11) BUN 49 H (7-18) mg/dl Creatinine 4.91 H* (0.6-1.2) mg/dl Est Cr Clr Drug Dosing 6.6 ml/min Est GFR ( Amer) 9.3 Est GFR (Non-Af Amer) 8.0 BUN/Creatinine Ratio 10.1 (10-20) Glucose 98 (70-99) mg/dl POC Glucose (70-99) Calcium 9.6 (8.5-10.1) mg/dl Magnesium (1.8-2.4) mg/dl Total Bilirubin 0.4 (0.2-1) mg/dl AST 36 (15-37) U/L ALT 39 (12-78) U/L Alkaline Phosphatase 192 H (45-117) U/L Total Protein 7.7 (6.4-8.2) gm/dl Albumin 2.9 L (3.4-5.0) gm/dl Globulin 4.8 H (2.5-4.0) gm/dl Albumin/Globulin Ratio 0.6 L (0.9-2) Urine Color Yellow Urine Appearance Turbid H (Clear) Urine pH >= 9.0 H (4.5-7.5) Ur Specific [place] 1.014 (1.000-1.030) Urine Protein 2+ H (Negative) Urine Glucose (UA) Negative (Negative) Urine Ketones Negative (Negative) Urine Blood 1+ H (Negative) Urine Nitrite Positive H (Negative) Urine Bilirubin Negative (Negative) Urine Urobilinogen Negative (Negative) Ur Leukocyte Esterase 3+ H (Negative) Urine WBC (Auto) >30 H (0-5) /hpf Urine RBC (Auto) 10-30 H (0-4) /hpf U Hyaline Cast (Auto) 1-5 (0-5) /lpf U Epithel Cells (Auto) 0-5 (0-5) /lpf Urine Bacteria (Auto) 2+ H (Negative) Urine Yeast Not Reportable Nasal Screen MRSA (PCR) (Negative) (1) Back pain Back pain laterality: unspecified Back pain location: low back pain Chronicity: unspecified Sciatica presence: unspecified whether sciatica present Qualified Code(s): M54.5 - Low back pain (2) Lumbar compression fracture Encounter type: subsequent encounter Fracture healing: with routine healing Fracture type: closed Lumbar vertebra fracture level: L3 Qualified Code(s): S32.030D - Wedge compression fracture of third lumbar vertebra, subsequent encounter for fracture with routine healing (3) Constipation Constipation type: unspecified constipation type Qualified Code(s): K59.00 - Constipation, unspecified (4) HTN (hypertension) Hypertension type: essential hypertension Qualified Code(s): I10 - Essential (primary) hypertension (5) HLD (hyperlipidemia) Hyperlipidemia type: unspecified Qualified Code(s): E78.5 - Hyperlipidemia, unspecified (6) Anemia Anemia type: due to chronic kidney disease
[2018-07-29] MEDS: HYDROmorphone INJ 0.5 MG/0.5 ML SYR IV PRN (16:00)
[2018-07-29] MEDS: POLYETHYLENE (MIRALAX) 17 GM PACK PO SCH (19:28)
[2018-07-29] MEDS: HydrALAZINE 10 MG TAB PO SCH (19:29)
[2018-07-29] MEDS: TRAMADOL HCL 50 MG TABLET PO PRN ×2 (19:32→23:29)
[2018-07-29] MEDS: DOCUSATE SODIUM 100 MG CAP PO PRN (19:32)
[2018-07-29] MEDS: CHOLECALCIFEROL 1,000 UNITS TAB PO SCH (20:40)
[2018-07-29] MEDS: FERROUS SULFATE 325 MG TAB PO SCH (20:40)
[2018-07-29] MEDS: ATORVASTATIN 20 MG TAB PO SCH (20:40)
[2018-07-30] MEDS: HEPARIN SOD 5,000 UNIT/0.5 ML VIAL SQ SCH ×3 (06:01→21:25)
[2018-07-30 07:03] LABS: BUN Creatinine Ratio 7.9 (10-20); Calcium 9.5 mg/dl (8.5-10.1); Creatinine Clr Calc Pharmacy 8.7 ml/min; Est GFR (African American) 12.8; Est GFR (Non-African American) 11.1; Phosphorus 3.4 mg/dl (2.5-4.9); Potassium 4.8 mmol/L (3.5-5.1)
--- NOTE | 2018-07-30 08:07 | Consultation Report ---
DATE OF CONSULTATION: 07/29/2018 CHIEF COMPLAINT: Back pain. ADMITTING DIAGNOSES: Back pain with osteoporosis, multiple compression fractures, albeit mild without trauma. HISTORY OF PRESENT ILLNESS: Diaen is pleasant. She is 78. I saw her in the office approximately 7 days ago. We agreed to treat her conservatively for whatever reason the back brace was a little too binding for her. She is short in stature and sometimes it is difficult, we might try a smaller version. She has some renal disease, history of liver transplant, constipation, hypertension, anemia. She describes low back pain, radiates to the left lower quadrant, minimal movement, severe pain with light touch. REVIEW OF SYSTEMS: Denies any blurred vision, double vision, tinnitus or vertigo. Denies any ear, nose and throat complaints. Denies shortness of breath. Denies chest pain, palpitations. PHYSICAL EXAMINATION: VITAL SIGNS: Stable, afebrile. CARDIAC: Normal S1, S2. LUNGS: Clear. ABDOMEN: Soft, nontender. MUSCULOSKELETAL: Lumbar spine does have pain with percussion in any type of motion. It is rather chronic. There is no extremity difficulty. NEUROLOGIC: Neurologically intact, 5/5 strength, good sensation, motor ability. She has no deficits. Moves all extremities. Alert, oriented. RADIOLOGIC DATA: Images reviewed. There has been no change since last images 2-3 weeks ago. There are very mild compression fractures of the spine. IMPRESSION: Mild and somewhat chronic compression fracture of the spine. I think they are healing. PLAN: Surgery and we talked about a kyphoplasty on her in the office. I think would get little reward. I think it is a fairly straightforward procedure, because of the minimal deformity, generally speaking, you do not get much pain relief from the kyphoplasty procedure. I think she may be disappointed. That is just my opinion as of today. I am going to order a new brace for her some small, she will need pain management. She will need rehabilitation, nursing, extended care facility type placement, but once again, I would hold off on the kyphoplasty. Any elaborate big surgery course would be completely contraindicated. I will continue to follow.
[2018-07-30] MEDS: DOCUSATE SODIUM 100 MG CAP PO PRN (08:44)
[2018-07-30] MEDS: POLYETHYLENE (MIRALAX) 17 GM PACK PO SCH ×2 (08:45→21:21)
[2018-07-30] MEDS: HYDROmorphone INJ 0.5 MG/0.5 ML SYR IV PRN (08:45)
[2018-07-30] MEDS: cefTRIAXone SODIUM 1,000 MG in DEXTROSE 5% 50 ML IV SCH (08:45)
[2018-07-30] MEDS: DOCUSATE SODIUM/SENNA 50/8.6MG TAB PO SCH (08:46)
[2018-07-30] MEDS: NAPROXEN 250 MG TAB PO SCH ×2 (08:47→21:20)
[2018-07-30] MEDS: NEBIVOLOL HCL 5 MG TAB PO SCH (08:48)
[2018-07-30] MEDS: LIDOCAINE 5% 1 PATCH TD SCH (08:48)
[2018-07-30] MEDS: CALCIUM 600MG + VIT D 400 IU TAB PO SCH ×2 (08:48→21:19)
--- NOTE | 2018-07-30 10:14 | Nephrology Progress Note ---
Date of Service July 30, 2018 Assessment & Plan (1) ESRD (end stage renal disease) on dialysis: -- Rx: MWF 3hr 2K 2.5Ca F-160NR Qb 400/ Qd 800 EDW 48 kg -- BP improved, volume status acceptable -- Monitor metabolic profile daily while inpatient -- Renal diet -- Medications are appropriately dosed for kidney function (2) Anemia: -- Epogen 4000 units QHD for anemia (Hgb<10) (3) Lumbar compression fracture: -- Ortho consult reviewed (4) Back pain: -- Pain control with Tramadol, Lidoderm, Naproxen -- Dilaudid 0.5mg IV q 4 hours PRN - patient is ESRD (5) Hx of liver transplant: (6) HTN (hypertension): -- Accelerated in setting of uncontrolled pain felt to be sympathetic -- Continue Hydralazine and Nebivolol as Rx Subjective No acute events overnight. Pain control improved. Diane is ambulating in her hospital room. Tolerated HD well yesterday. Review of Systems All systems reviewed & are unremarkable except as noted in HPI & below Physical Exam Vital Signs (Past 24 Hours): Last Vital Signs Temp 36.5 C 07/30/18 07:21 Pulse 67 07/30/18 08:00 Resp 18 07/30/18 07:21 BP 175/63 H 07/30/18 07:21 Pulse Ox 97 07/30/18 07:21 Constitutional: well developed and + acute distress Eyes: no scleral abnormality and no corneal abnormality ENMT: Mouth: no oral mucosal abnormality and oral mucous membranes not dry Neck: normal visual inspection and trachea midline Respiratory: normal respiratory effort; no respiratory distress Auscultation: lungs clear to auscultation bilaterally Cardiovascular: Heart Sounds: normal S1, normal S2 and + murmur; no gallop Vessels: no JVD Extremities: + AV fistula Gastrointestinal (Abdomen): Percussion/Palpation: abdomen soft; abdomen nontender Musculoskeletal: Extremities: no cyanosis, no clubbing and no petechiae Skin: normal turgor; no rashes Neurologic: Motor/Sensory: no tremor and no asterixis Psychiatric: Affect: + depressed affect Results & Data Laboratory Results Laboratory Results - last 24 hr 07/30/18 06:12 Sodium 136 Potassium 4.8 D Chloride 100 Carbon Dioxide 30 Anion Gap 6.0 BUN 30 H Creatinine 3.75 H D Est Cr Clr Drug Dosing 8.7 Est GFR ( Amer) 12.8 Est GFR (Non-Af Amer) 11.1 BUN/Creatinine Ratio 7.9 L Glucose 77 Calcium 9.5 Phosphorus 3.4 (1) Anemia Anemia type: due to chronic kidney disease (2) Lumbar compression fracture Encounter type: subsequent encounter Fracture healing: with routine healing Fracture type: closed Lumbar vertebra fracture level: L3 Qualified Code(s): S32.030D - Wedge compression fracture of third lumbar vertebra, subsequent encounter for fracture with routine healing (3) Back pain Back pain laterality: unspecified Back pain location: low back pain Chronicity: unspecified Sciatica presence: unspecified whether sciatica present Qualified Code(s): M54.5 - Low back pain (4) HTN (hypertension) Hypertension type: essential hypertension Qualified Code(s): I10 - Essential (primary) hypertension
[2018-07-30] MEDS: ASCORBIC ACID 500 MG TAB PO SCH (11:58)
[2018-07-30] MEDS ORDERED: HYDROCODONE/ACETAMOPHEN 5/325MG TAB PO PRN (12:47)
--- NOTE | 2018-07-30 12:53 | Hospitalist Progress Note ---
Date of Service July 30, 2018 Assessment & Plan (1) Back pain: Patient with osteoporosis, multiple compression fractures as the cause of her pain. No history of fall or trauma. No evidence of neurologic compromise. Patient has been seen by Ortho during past admissions and was recommended conservative management and PT. Patient presents again with severe lower back pain radiating around to the left flank. States that it never really improved. It seems as though the patient has not been adherent with the recommend regimen of medications. She has only been taking the Tramadol but not Naproxen, Lidoderm or Oxycodone. Pain is improved somewhat with IV Dilaudid, tramadol helps minimally Having allodynia in the left lower back region around to the LLQ which is improved today Discussed case with her nurse academic coordinator at [facility] and dentistry [facility]-said we can use any opioid and would prefer acetaminophen over any NSAIDs. asset coordinator reported that she would be safe to have an injection from a pain management physician. Discussed the case with pain management here who was consulted-she is not a candidate from their perspective for injections as she is immunosuppressed. Orthopedic spine doctor does not want to perform kyphoplasty or any kind of procedure on her also given her immunosuppression and does not feel that kyphoplasty would give her much pain relief. -Add on hydrocodone and discontinued tramadol -Continue Lidoderm, Naproxen, and IV DIlaudid as needed -Appreciate any further pain management recommendations -PT/OT evaluation -Appreciate ortho-Spine evaluation (2) Lumbar compression fracture: As above -Continue Calcium and Vitamin D supplements -consider Prolia treatment perhaps? (3) ESRD (end stage renal disease) on dialysis: Patient receives HD q MWF through LUE AV fistula. She follows with Dr. Newby. Her K elevated on admission at 6.4 and again the following day at 6.1. No EKG changes. 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 Second transplant in 2008. Stable. No evidence of failure or rejection. -Continue Everolimus -continue Nebivolol (5) Constipation: Patient was administered Kayexlelate in the ER which did solve the problem. Was likely contributing to some of her abdominal pain as that is now resolved with moving her bowels -Dulcolax suppository was given -continue senna/docusate 2 tabs daily -Continue Miralax 17 gms bid (6) HTN (hypertension): Blood pressure mildly elevated, could be secondary to pain -Continue Hydralazine 10mg qAM -continue Nebivolol -Continue to monitor (7) HLD (hyperlipidemia): Chronic -Continue Atorvastatin (8) Anemia: Stable. No active bleeding Anemia of chronic kidney disease -received EPO and is on po FeSO4 -CBC in AM (9) UTI (urinary tract infection): UA abnormal with nitrite on admission, urine culture now growing Klebsiella pneumoniae that is pansensitive -Continue Rocephin times 3-day course (10) Acute hyperkalemia: as above -Now resolved (11) Hypoglycemia: Had hypoglycemia the morning after admission, likely secondary to receiving 10 units reg insulin IV the night before for hyperkalemia along with her amp of D50-now resolved -repeat accuchecks improved after treatment -not on insulin normally (12) Acute exacerbation of chronic low back pain: as above, due to lumbar compression fracture (13) Osteoporosis: -continue calcium and Vit D-consider adding on Prolia as outpt (14) DVT prophylaxis: Heparin SQ Dispo-remain hospitalized until pain is controlled, will likely need rehab placement Subjective Pain is somewhat improved today and is more localized to the lower back radiating to the left lower back and not so much in the abdomen today. She moved her bowels again. She reports the pain is worse with any movement. I discussed the case with pain management. I also called her nurse academic coordinator at [facility] and dentistry [facility] ([place])-the nurse academic coordinator said that because the patient is 10 years out from transplant, we can use any opioid that would control her pain, and we can even use Tylenol. She reported that Tylenol was actually preferred to NSAIDs. Review of Systems All systems reviewed & are unremarkable except as noted in HPI & below Physical Exam Vital Signs (Past 24 Hours): Last Vital Signs Temp 36.5 C 07/30/18 11:29 Pulse 65 07/30/18 11:29 Resp 18 07/30/18 11:29 BP 168/66 H 07/30/18 11:29 Pulse Ox 96 07/30/18 11:29 Constitutional: + acute distress (with minimal movement in bed) and + thin Eyes: PERRL, conjunctivae normal, anicteric sclerae ENMT: external ear and nose normal, oropharynx normal Neck: trachea midline, no thyromegaly Respiratory: normal respiratory effort, lungs clear to auscultation Cardiovascular: RRR, no murmur, no edema Gastrointestinal (Abdomen): normal bowel sounds, soft, nontender, no hepatosplenomegaly Musculoskeletal: Spine: lumbar spine normal to inspection and + paraspinal tenderness (exquisite pain with minimal palpation of left paraspinous muscles,flank); no scoliosis, no thoracic spinal tenderness and no thoraco- lumbar mass Extremities: + extremities abnormal to inspection (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), no cyanosis and no clubbing Skin: no rashes, warm and dry Neurologic: moves all extremities and awake; no focal motor deficits Psychiatric: A+Ox3, euthymic affect Results & Data Laboratory Results 07/30/18 Range/Units 06:12 Sodium 136 (136-145) mmol/L Potassium 4.8 D (3.5-5.1) mmol/L Chloride 100 (98-107) mmol/L Carbon Dioxide 30 (21-32) mmol/L Anion Gap 6.0 (3-11) BUN 30 H (7-18) mg/dl Creatinine 3.75 H D (0.6-1.2) mg/dl Est Cr Clr Drug Dosing 8.7 ml/min Est GFR ( Amer) 12.8 Est GFR (Non-Af Amer) 11.1 BUN/Creatinine Ratio 7.9 L (10-20) Glucose 77 (70-99) mg/dl Calcium 9.5 (8.5-10.1) mg/dl Phosphorus 3.4 (2.5-4.9) mg/dl (1) Anemia Anemia type: due to chronic kidney disease (2) Back pain Back pain laterality: unspecified Back pain location: low back pain C hronicity: unspecified Sciatica presence: unspecified whether sciatica present Qualified Code(s): M54.5 - Low back pain (3) HLD (hyperlipidemia) Hyperlipidemia type: unspecified Qualified Code(s): E78.5 - Hyperlipidemia, unspecified (4) Lumbar compression fracture Encounter type: subsequent encounter Fracture healing: with routine healing Fracture type: closed Lumbar vertebra fracture level: L3 Qualified Code(s): S32.030D - Wedge compression fracture of third lumbar vertebra, subsequent encounter for fracture with routine healing (5) HTN (hypertension) Hypertension type: essential hypertension Qualified Code(s): I10 - Essential (primary) hypertension (6) Constipation Constipation type: unspecified constipation type Qualified Code(s): K59.00 - Constipation, unspecified
[2018-07-30] MEDS: HYDROCODONE/ACETAMOPHEN 5/325MG TAB PO PRN ×2 (13:57→23:31)
[2018-07-30] MEDS ORDERED: BACLOFEN 10 MG TAB PO PRN (14:36)
--- NOTE | 2018-07-30 15:43 | Pain Management Consultation ---
Date of Consultation July 30, 2018 Assessment & Plan (1) Lumbar compression fracture: 1. The patient is not a candidate for interventional pain management at this time secondary to immunocompromised status, ESRD on HD, and age of compression fracture. Recommend medical management. 2. D/c tramadol due to lack of efficacy and start norco 1-2tab po q4-[address] Monreal has written those orders after a discussion with her transplant center [facility]. 3. Recommend orthotics consult for better fit of LSB. The patient has a very short torso and will likely need adjustment to allow for comfort while wearing the brace. 4. Ortho spine is already consulted who has deferred kyphoplasty until medical management has failed. 5. Will initiate baclofen 5 mg po BID prn spasm to reduce myofascial pain in area surrounding fracture. 6. PT/OT and osteoporotic meds as previous 7. Consider bone scan in the future if pain persists to evaluate compression fracture healing. 8. Thank you for this consultation. Encounter type: subsequent encounter Fracture healing: with routine healing Fracture type: closed Lumbar vertebra fracture level: L3 Qualified Code(s): S32.030D - Wedge compression fracture of third lumbar vertebra, subsequent encounter for fracture with routine healing (2) ESRD (end stage renal disease) on dialysis: (3) Hx of liver transplant: (4) Osteoporosis: (5) Acute exacerbation of chronic low back pain: History of Present Illness Attending Physician: Madeleine Monreal MD History of Present Illness 78yo female with history of 100% axial low back pain since mid may 2018. Mild compression fx at L3 noted with subacute L4 and L5 fractures on imaging. The patient has a history significant for liver tx x2, ESRD on HD, chronic LBP, and osteoporosis. She denies any inciting event. She denies any bowel or bladder incontinence, motor weakness, foot drop, falls, fever, chills, night sweats, sensory deficit in bilateral lower extremities. She reports that pain is sharp, deep, aching directly over L3-S1. She admits to mild-moderate muscle spasm in surrounding areas. She reports only mild efficacy on pain relief with tramadol dosing. She reports moderate efficacy from IV hydromorphone, but acknowledges that this is not a correction solution. She does have a lumbar support brace, but does not utilize secondary to poor fit. She has consulted with Dr. White from ortho spine. Her liver tx was performed at [facility]. Pain Assessment Pain scale - at its best (0-10): 5 Pain scale - at its worst (0-10): 9 Allergies Allergy/AdvReac Type Severity Reaction Status Date / Time No Known Allergies Allergy Unverified 07/28/18 19:47 Home Medications Home Medications Medication Instructions Recorded Confirmed Type ascorbic acid (vitamin C) [Vitamin 1,000 mg PO QDL 06/03/18 07/28/18 History C] atorvastatin 20 mg PO HS 06/03/18 07/28/18 History calcium carbonate-vitamin D3 1 tab PO BID 06/03/18 07/28/18 History [Calcium 500 + D] cholecalciferol (vitamin D3) 2,000 unit PO HS 06/03/18 07/28/18 History [Vitamin D3] everolimus (immunosuppressive) 2 mg PO BID 06/03/18 07/28/18 History ferrous sulfate 325 mg PO HS 06/03/18 07/28/18 History hydralazine 10 mg PO HS 06/03/18 07/28/18 History multivitamin 1 tab PO QAM 06/03/18 07/28/18 History nebivolol 10 mg PO QAM 06/03/18 07/28/18 History naproxen 250 mg PO BID #1 tab 06/06/18 07/28/18 Rx oxycodone 5 mg PO Q4H PRN #4 tab 06/06/18 07/28/18 Rx acetaminophen [Pain Reliever] 500 mg PO Q4H PRN #60 tab 07/16/18 07/28/18 Rx lidocaine 1 patch TRANSDERMAL QAM #30 ea 07/16/18 07/28/18 Rx sennosides-docusate sodium [Senna 2 tab PO QAM #60 tab 07/16/18 07/28/18 Rx with Docusate Sodium] tramadol 50 mg PO Q4H PRN #60 tab 07/16/18 07/28/18 Rx Pain History Pain Location Full Body Front + Back: 1. Pain Intensity [facility] Combined Pain Scale: 6-Mod to Severe - Significant limitations of ADLs. Hard to do anything Pain scale - at its best (0-10): 5 Pain scale - at its worst (0-10): 9 Cause Cause of Pain: Spontaneous Timing Timing: all day Character Pain character: aching, cramping and sharp Activity Factors Exacerbated by: prolonged standing and prolonged sitting Improved by: lying in bed Functional Limitations [facility] Combined Function Scale: 7-Severe Limitations - Minimal ch ores. Needs help 70% of the time. Previous Treatment Treatments: physical therapy and ice Previous Evaluations and Results Evaluations by other providers: ortho spine Current Therapy Current Medication Therapy: Tramadol and Opiods Current or Pending Litigation Current or Pending Litigation: No Patient History Medical History HTN (hypertension) (Chronic) HLD (hyperlipidemia) (Chronic) Osteoporosis (Chronic) Anemia (Chronic) Dyspnea History of renal dialysis Hx of compression fracture of spine Surgical History Liver transplant status (Chronic) S/P tubal ligation (Chronic) H/O detached retina repair (Chronic) S/P cataract extraction and insertion of intraocular lens (Chronic) 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, ?CMV Family History Other Family history non-contributory Social History Communication Ability: Effective Beliefs That Will Affect Care: None marital status: Single Current Living Situation: Family Current Living Situation Comment: with son current occupational status: retired Feels Safe at Home: Yes Safety Concerns: Feels Safe At This Time Smoking Status: Former smoker Hx Alcohol Use: No Hx Substance Use: No Review of Systems 10 pt ROS was checked and noted as per HPI Physical Exam Vital Signs (Past 24 Hours): Last Vital Signs Temp 36.5 C 07/30/18 14:54 Pulse 67 07/30/18 14:54 Resp 18 07/30/18 14:54 BP 150/64 H 07/30/18 14:54 Pulse Ox 96 07/30/18 14:54 Constitutional: WD/WN, vitals as above well developed, well nourished, + well hydrated and + thin; no acute distress Eyes: PERRL, conjunctivae normal, anicteric sclerae ENMT: external ear and nose normal, oropharynx normal Neck: trachea midline, no thyromegaly normal visual inspection Respiratory: normal respiratory effort, lungs clear to auscultation Cardiovascular: RRR, no murmur, no edema Gastrointestinal (Abdomen): Inspection/Auscultation: abdomen normal to inspection; abdomen not distended and no significant pannus Percussion/Palpation: abdomen soft; abdomen nontender and no guarding Musculoskeletal: no cyanosis or clubbing, extremities motor strength 5/5 Head/Neck/Chest: + head abnormal to inspection; full ROM of neck Spine: + limited thoraco-lumbar ROM, + lumbar spinal tenderness (L3-S1 midline with moderate-marked L=R paravertebral muscle spasm noted) and + pain with anterior- posterior compression; normal cervical ROM, no step off deformity and straight leg raise positive tilt absent Extremities: extremities normal to inspection and strength 5/5 throughout; full ROM of extremities Gait: normal gait (gait note observed. Pt does has difficulty moving in bed secondary to pain) Skin: no rashes, warm and dry Neurologic: patellar DTR's 2+ bilat, sensation intact Motor/Sensory: no tremor Psychiatric: A+Ox3, euthymic affect Results Diagnostic Review MRI: non enhanced and reports reviewed MRI Findings: [place], [place] [phone] Magnetic Resonance Report Patient: Betzy POE Date: 06/03/18 MR#: [id number]: [address] [facility] Acct ID:[id number]: Date: [address] [place] [address] Zip: [place] [address] Age: 78Location: 3N Sex: F Room/Bed: [facility] Att Phy: Rashi Wise, MDDiagnosis: COMPRESSION FRACTURE, ESRD Theresa Phy: Tiburcio Gutierrez MDService Date: 06/04/18 Fam Phy: Interpreting Phy: Dl Chaves MD Admit Phy: Trey Dacosta D.O. Ordering Phy: [place] Anthony D.O. cc: ~ MR lumbar spine wo con CLINICAL HISTORY: Persistent back and leg pain. ABNORMAL CT SCAN. AGE- INDETERMINATE FRACTURE. TECHNIQUE: Sagittal and axial T1, T2 and STIR images were obtained. COMPARISON STUDY: CT scan of the lumbar spine dated 06/03/2018 OBSERVATIONS: There is L4 marrow edema. There is a superior endplate L4 deformity. Marrow edema is felt to be secondary to an acute/subacute compression fracture. There is no L5 marrow edema, and the L5 endplate deformity is felt to be old. The L4 vertebra has lost approximately 30% of its height. L1-2: There is a minor circumferential disc bulge. There is no spinal or foraminal stenosis L2-3: No disc protrusions or extrusions. No evidence of spinal canal or neural foraminal compromise. L3-4: There is a mild circumferential disc bulge. There is mild transverse spinal canal narrowing. There is no significant foraminal stenosis. L4-5: There is a mild circumferential disc bulge. There is mild trigone or spinal canal narrowing. There is no significant foraminal analysis. L5-S1: There is a minimal circumferential disc bulge. There is no significant spinal or foraminal stenosis. The conus medullaris and cauda equina appear normal. IMPRESSION: 1. Mild multilevel spondylitic changes. No evidence of moderate or severe spinal stenosis. No significant foraminal narrowing 2. The superior endplate compression fracture of the L4 vertebral body as described on the recent CT scan demonstrates marrow edema indicating an acute/subacute timeframe. CT: non enhanced, reports reviewed and findings discussed with patient CT Findings: atient: Betzy POE Date: 07/28/18 MR#: [id number]: [address] [facility] Acct ID:[id number]: Date: [address] [place] [address] Zip: [place] [address] Age: 78Location: ED Sex: F Room/Bed: Att Phy: Diagnosis: BACK PAIN Theresa Phy: PCP,NO Service Date: 07/28/18 Fam Phy: Interpreting Phy: Zachery Vazquez MD Admit Phy: Ordering Phy: Nova Jordan CRNP cc: ~ CT lumbar spine wo con CT DOSE: 260.56 mGy.cm HISTORY: Pain lbp, hx of vertebral fxs TECHNIQUE: Multiaxial CT images of the lumbar spine were performed and reformatted in the sagittal and coronal plane without the use of contrast. A dose lowering technique was utilized adhering to the principles of ALARA. COMPARISON: 07/13/2018 FINDINGS: No change compared to the prior study. Diffuse osteoporosis. Mild compression deformity L3 unchanged from the prior study. 3 mm retropulsion of the superior endplate also unchanged. Subacute compression deformities of L4 and L5 also unchanged. No evidence for new compression deformity compared to the prior study. Study remains negative for significant narrowing of the spinal canal. IMPRESSION: 1. Diffuse osteoporosis. 2. Multiple subacute to chronic compression deformities unchanged from the prior study. 3. No evidence for a new or interval process.
[2018-07-30] MEDS: HydrALAZINE 10 MG TAB PO SCH (21:18)
[2018-07-30] MEDS: FERROUS SULFATE 325 MG TAB PO SCH (21:19)
[2018-07-30] MEDS: ATORVASTATIN 20 MG TAB PO SCH (21:20)
[2018-07-30] MEDS: CHOLECALCIFEROL 1,000 UNITS TAB PO SCH (21:21)
[2018-07-30] MEDS: EVEROLIMUS 0.5 MG PO SCH (21:33)
[2018-07-31] MEDS: HEPARIN SOD 5,000 UNIT/0.5 ML VIAL SQ SCH ×3 (06:03→21:07)
[2018-07-31] MEDS ORDERED: EPOETIN ALFA 4,000 UNIT/ML VIAL IV SCH (07:00)
[2018-07-31] MEDS ORDERED: SODIUM CHLORIDE 0.9% 1000ML 1,000 ML IV PRN (07:00)
[2018-07-31] MEDS: cefTRIAXone SODIUM 1,000 MG in DEXTROSE 5% 50 ML IV SCH (07:37)
[2018-07-31] MEDS: NEBIVOLOL HCL 5 MG TAB PO SCH (07:37)
[2018-07-31] MEDS: CALCIUM 600MG + VIT D 400 IU TAB PO SCH ×2 (07:38→21:03)
[2018-07-31] MEDS: LIDOCAINE 5% 1 PATCH TD SCH (07:38)
[2018-07-31] MEDS: POLYETHYLENE (MIRALAX) 17 GM PACK PO SCH ×2 (07:38→21:04)
[2018-07-31] MEDS: NAPROXEN 250 MG TAB PO SCH ×2 (07:38→21:05)
[2018-07-31] MEDS: DOCUSATE SODIUM/SENNA 50/8.6MG TAB PO SCH (07:41)
[2018-07-31] MEDS: EVEROLIMUS 0.5 MG PO SCH ×2 (07:42→21:06)
[2018-07-31] MEDS: HYDROCODONE/ACETAMOPHEN 5/325MG TAB PO PRN ×3 (07:59→23:42)
--- NOTE | 2018-07-31 09:32 | Nephrology Progress Note ---
Date of Service July 31, 2018 Assessment & Plan (1) ESRD (end stage renal disease) on dialysis: -- HD today per MWF schedule, orders entered into EMR and discussed with HD nurse (note that current weight is below EDW) -- AM labs pending -- Rx: MWF 3hr 2K 2.5Ca F-160NR Qb 400/ Qd 800 EDW 48 kg--> will challenge 1 L today -- BP acceptable, volume status euvolemic -- Monitor metabolic profile daily while inpatient -- Renal diet -- Medications are appropriately dosed for kidney function (2) Anemia: -- Epogen 4000 units QHD for anemia (Hgb<10) (3) Lumbar compression fracture: -- Ortho consult reviewed (4) Back pain: -- Pain control with Tramadol, Lidoderm, Naproxen -- Dilaudid 0.5mg IV q 4 hours PRN - patient is ESRD (5) Hx of liver transplant: (6) HTN (hypertension): -- Accelerated in setting of uncontrolled pain felt to be sympathetic -- Continue Hydralazine and Nebivolol as Rx Subjective Review of Systems All systems reviewed & are unremarkable except as noted in HPI & below No acute events overnight. Pain control improving but Diane remains frustrated. She is ambulating in her hospital room. Diane is breathing comfortably. Appetite is poor. No bowel movement. Denies constipation. Physical Exam Vital Signs (Past 24 Hours): Last Vital Signs Temp 36.7 C 07/31/18 07:21 Pulse 67 07/31/18 07:21 Resp 18 07/31/18 07:21 BP 154/56 H 07/31/18 07:21 Pulse Ox 95 07/31/18 07:21 Constitutional: well developed; no acute distress Eyes: no scleral abnormality and no corneal abnormality ENMT: Mouth: no oral mucosal abnormality and oral mucous membranes not dry Neck: normal visual inspection and trachea midline Respiratory: normal respiratory effort; no respiratory distress Auscultation: lungs clear to auscultation bilaterally Cardiovascular: Heart Sounds: normal S1, normal S2 and + murmur; no gallop Vessels: no JVD Extremities: + AV fistula Gastrointestinal (Abdomen): Percussion/Palpation: abdomen soft; abdomen nontender Musculoskeletal: Extremities: no cyanosis, no clubbing and no petechiae Skin: normal turgor; no rashes Neurologic: Motor/Sensory: no tremor and no asterixis Psychiatric: Affect: + flat affect (1) Anemia Anemia type: due to chronic kidney disease (2) Lumbar compression fracture Encounter type: subsequent encounter Fracture healing: with routine healing Fracture type: closed Lumbar vertebra fracture level: L3 Qualified Code(s): S32.030D - Wedge compression fracture of third lumbar vertebra, subsequent encounter for fracture with routine healing (3) Back pain Back pain laterality: unspecified Back pain location: low back pain Chronicity: unspecified Sciatica presence: unspecified whether sciatica present Qualified Code(s): M54.5 - Low back pain (4) HTN (hypertension) Hypertension type: essential hypertension Qualified Code(s): I10 - Essential (primary) hypertension
[2018-07-31] MEDS: ASCORBIC ACID 500 MG TAB PO SCH (11:48)
[2018-07-31 12:28] LABS: Albumin Level 2.7 gm/dl (3.4-5.0); BUN Creatinine Ratio 11.3 (10-20); Creatinine Clr Calc Pharmacy 6.1 ml/min; Est GFR (African American) 8.4; Est GFR (Non-African American) 7.2; Phosphorus 4.2 mg/dl (2.5-4.9); Potassium 5.2 mmol/L (3.5-5.1)
[2018-07-31] MEDS: DOCUSATE SODIUM 100 MG CAP PO PRN ×2 (19:03→23:42)
--- NOTE | 2018-07-31 20:24 | Hospitalist Progress Note ---
Date of Service July 31, 2018 Assessment & Plan (1) Back pain: Patient with osteoporosis, multiple compression fractures as the cause of her pain. No history of fall or trauma. No evidence of neurologic compromise. Patient has been seen by Ortho during past admissions and was recommended conservative management and PT. Patient presents again with severe lower back pain radiating around to the left flank. States that it never really improved. It seems as though the patient has not been adherent with the recommend regimen of medications. She has only been taking the Tramadol but not Naproxen, Lidoderm or Oxycodone. She has refused an orthotic back brace. Pain was improved with IV Dilaudid, tramadol helps minimally. Now transitioning to oral meds only which was stressed with her to avoid IV Dilaudid if possible Having allodynia in the left lower back region around to the LLQ which is improved today Discussed case with her nurse sales training coordinator at [facility] and dentistry [facility]-said we can use any opioid and would prefer acetaminophen over any NSAIDs. executive coordinator reported that she would be safe to have an injection from a pain management physician. Discussed the case with pain management here who was consulted-she is not a candidate from their perspective for injections as she is immunosuppressed. Orthopedic spine doctor does not want to perform kyphoplasty or any kind of procedure on her also given her immunosuppression and does not feel that kyphoplasty would give her much pain relief. -Continue hydrocodone 1-2 tabs every 4 hours as needed pain -Have since discontinued tramadol -Continue Lidoderm, Naproxen, and IV DIlaudid only for severe breakthrough pain as needed -Appreciate pain management recommendations-also added baclofen as needed -PT/OT evaluation -Appreciate ortho-Spine evaluation -Declined orthotic -Does not feel she can be on her own at home and family is not able to provide 24 7 care, yet patient was hesitant to discuss going to a snf because she has one half to be transported to dialysis. -Agreeable now to referral for acute rehab again (2) Lumbar compression fracture: As above -Continue Calcium and Vitamin D supplements -consider Prolia treatment perhaps? -Recommended follow-up with rheumatology after discharge (3) ESRD (end stage renal disease) on dialysis: Patient receives HD q MWF through LUE AV fistula. She follows with Dr. Newby. Her K elevated on admission at 6.4 and again the following day at 6.1. No EKG changes. 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 Second transplant in 2008. Stable. No evidence of failure or rejection. -Continue Everolimus -continue Nebivolol (5) Constipation: Patient was administered Kayexlelate in the ER which did solve the problem initially. Was likely contributing to some of her abdominal pain as it did improve with moving her bowels Now with constipation again for 3 days -continue senna/docusate 2 tabs daily -Continue Miralax 17 gms and increase to 4 times daily -Give Kayexalate 15 g p.o. x1 now (6) HTN (hypertension): Blood pressure mildly elevated, could be secondary to pain -Continue Hydralazine 10mg nightly -continue Nebivolol -Continue to monitor (7) HLD (hyperlipidemia): Chronic -Continue Atorvastatin (8) Anemia: Stable. No active bleeding Anemia of chronic kidney disease -received EPO and is on po FeSO4 Follow as an outpatient (9) UTI (urinary tract infection): UA abnormal with nitrite on admission, urine culture now growing Klebsiella pneumoniae that is pansensitive -Continue Rocephin times 3-day course-today was less today, we will now discontinue (10) Acute hyperkalemia: as above (11) Hypoglycemia: Had hypoglycemia the morning after admission, likely secondary to receiving 10 units reg insulin IV the night before for hyperkalemia along with her amp of D50-now resolved -repeat accuchecks improved after treatment -not on insulin normally (12) Acute exacerbation of chronic low back pain: as above, due to lumbar compression fracture (13) Osteoporosis: -continue calcium and Vit D-consider adding on Prolia as outpt -Follow-up with rheumatology as an outpatient (14) DVT prophylaxis: Heparin SQ Dispo-pain control is adequate at this point for rehab placement, have asked case management to put out referral to acute rehab for tomorrow, medically stable for discharge Subjective Patient states her pain is down to an 8-1/2 out of a 10 now with taking hydrocodone although it is making her feel dizzy with standing. She reports she could not tolerate the orthotics brace and declined it. She says she would like to go home but does not feel she would be able to get around by herself at home and her family cannot provide 24 7 care. She does not want to have to take public transportation to dialysis, but her family does not offer any other way at this time. She would like to go to acute rehab again. Also complains of constipation again and would like something more for that. Also wants me to take her telemetry box off. Also does not want any more lab draws. I discussed her disposition with her and her son, [id number] at the bedside for 35 minutes today before we finally came to an agreement. Review of Systems Review of Systems: All systems reviewed & are unremarkable except as noted in HPI & below Physical Exam Constitutional: + thin; no acute distress Eyes: PERRL, conjunctivae normal, anicteric sclerae Neck: trachea midline, no thyromegaly Respiratory: normal respiratory effort, lungs clear to auscultation Cardiovascular: RRR, no murmur, no edema Gastrointestinal (Abdomen): Inspection/Auscultation: abdomen normal to inspection; abdomen not distended Percussion/Palpation: + abdomen tender (In the right lower quadrant and left lower quadrant without guarding or rebound tenderness, no masses) and abdomen soft Musculoskeletal: Spine: lumbar spine normal to inspection and + paraspinal tenderness (exquisite pain with minimal palpation of left paraspinous muscles,flank-sometimes she winced with pain before I even touched her) Extremities: + extremities abnormal to inspection (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), no cyanosis and no clubbing Skin: no rashes, warm and dry Neurologic: moves all extremities and awake; no focal motor deficits Psychiatric: A+Ox3, euthymic affect Results & Data Vital Signs (Past 12 Hours) Vital Signs Temp Pulse Pulse Pulse Resp BP BP 07/31/18 18:21 36.4 C L 61 61 162/65 H 162/65 H 07/31/18 18:00 63 144/53 H 07/31/18 17:40 59 L 147/64 H 07/31/18 17:20 57 L 140/59 L 07/31/18 17:00 66 132/60 07/31/18 16:40 58 L 127/49 L 07/31/18 16:20 57 L 116/53 L 07/31/18 16:00 58 L 124/54 L 07/31/18 15:40 61 149/60 H 07/31/18 15:20 36.7 C 66 66 160/65 H 07/31/18 11:10 36.6 C 67 16 146/57 H Pulse Ox 07/31/18 18:21 07/31/18 18:00 07/31/18 17:40 07/31/18 17:20 07/31/18 17:00 07/31/18 16:40 07/31/18 16:20 07/31/18 16:00 07/31/18 15:40 07/31/18 15:20 07/31/18 11:10 94 Laboratory Results 07/31/18 Range/Units 11:32 Sodium 133 L (136-145) mmol/L Potassium 5.2 H (3.5-5.1) mmol/L Chloride 98 (98-107) mmol/L Carbon Dioxide 30 (21-32) mmol/L Anion Gap 5.0 (3-11) BUN 60 H D (7-18) mg/dl Creatinine 5.32 H* D (0.6-1.2) mg/dl Est Cr Clr Drug Dosing 6.1 ml/min Est GFR ( Amer) 8.4 Est GFR (Non-Af Amer) 7.2 BUN/Creatinine Ratio 11.3 (10-20) Glucose 105 H (70-99) mg/dl Calcium 9.0 (8.5-10.1) mg/dl Phosphorus 4.2 (2.5-4.9) mg/dl Albumin 2.7 L (3.4-5.0) gm/dl (1) Anemia Anemia type: due to chronic kidney disease (2) Back pain Back pain laterality: unspecified Back pain location: low back pain Chronicity: unspecified Sciatica presence: unspecified whether sciatica present Qualified Code(s): M54.5 - Low back pain (3) HLD (hyperlipidemia) Hyperlipidemia type: unspecified Qualified Code(s): E78.5 - Hyperlipidemia, unspecified (4) Lumbar compression fracture Encounter type: subsequent encounter Fracture healing: with routine healing Fracture type: closed Lumbar vertebra fracture level: L3 Qualified Code(s): S32.030D - Wedge compression fracture of third lumbar vertebra, subsequent encounter for fracture with routine healing (5) HTN (hypertension) Hypertension type: essential hypertension Qualified Code(s): I10 - Essential (primary) hypertension (6) Constipation Constipation type: unspecified constipation type Qualified Code(s): K59.00 - Constipation, unspecified
[2018-07-31] MEDS: HydrALAZINE 10 MG TAB PO SCH (21:02)
[2018-07-31] MEDS: FERROUS SULFATE 325 MG TAB PO SCH (21:03)
[2018-07-31] MEDS: ATORVASTATIN 20 MG TAB PO SCH (21:04)
[2018-07-31] MEDS: CHOLECALCIFEROL 1,000 UNITS TAB PO SCH (21:06)
[2018-07-31] MEDS ORDERED: SODIUM POLYSTYRENE SULFONATE 15G/60ML SUSP PO STA (21:31)
[2018-08-01] MEDS: HYDROCODONE/ACETAMOPHEN 5/325MG TAB PO PRN (06:05)
[2018-08-01] MEDS: HEPARIN SOD 5,000 UNIT/0.5 ML VIAL SQ SCH ×3 (06:06→21:28)
[2018-08-01] MEDS: NEBIVOLOL HCL 5 MG TAB PO SCH (07:38)
[2018-08-01] MEDS: NAPROXEN 250 MG TAB PO SCH (07:39)
[2018-08-01] MEDS: CALCIUM 600MG + VIT D 400 IU TAB PO SCH ×2 (07:39→21:25)
[2018-08-01] MEDS: LIDOCAINE 5% 1 PATCH TD SCH (07:39)
[2018-08-01] MEDS: EVEROLIMUS 0.5 MG PO SCH ×2 (07:40→21:28)
[2018-08-01] MEDS: DOCUSATE SODIUM/SENNA 50/8.6MG TAB PO SCH (07:41)
[2018-08-01] MEDS: POLYETHYLENE (MIRALAX) 17 GM PACK PO SCH ×4 (07:41→21:27)
--- NOTE | 2018-08-01 09:34 | Nephrology Progress Note ---
Date of Service August 01, 2018 Assessment & Plan (1) ESRD (end stage renal disease) on dialysis: -- HD MWF -- BP and volume status are acceptable -- AM labs pending -- Rx: MWF 3hr 2K 2.5Ca F-160NR Qb 400/ Qd 800 EDW 48 kg--> will challenge 1 L today -- Monitor metabolic profile daily while inpatient -- Renal diet -- Medications are appropriately dosed for kidney function (2) Anemia: -- Epogen 4000 units QHD for anemia (Hgb<10) (3) Lumbar compression fracture: -- Ortho consult -- Pain management consult (4) Back pain: -- Pain control with [place], Lidoderm, Naproxen (5) Hx of liver transplant: (6) HTN (hypertension): -- Continue Hydralazine and Nebivolol as Rx Subjective No acute events overnight. Pain control acceptable. Diane tolerated HD well yesterday. Constipation has improved. Stool is now very loose. She is ambulating but has trouble sitting. She is very concerned about pain management with transfer to dialysis. She notes that riding in the van is very hard on her back. She is looking to transition to rehab at discharge. Review of Systems Review of Systems: All systems reviewed & are unremarkable except as noted in HPI & below Physical Exam Constitutional: well developed; no acute distress Eyes: no scleral abnormality and no corneal abnormality ENMT: Mouth: no oral mucosal abnormality and oral mucous membranes not dry Neck: normal visual inspection and trachea midline Respiratory: normal respiratory effort; no respiratory distress Auscultation: lungs clear to auscultation bilaterally Cardiovascular: Heart Sounds: normal S1, normal S2 and + murmur; no gallop Vessels: no JVD Extremities: + AV fistula Gastrointestinal (Abdomen): Percussion/Palpation: abdomen soft; abdomen nontender Musculoskeletal: Extremities: no cyanosis, no clubbing and no petechiae Skin: normal turgor; no rashes Neurologic: Motor/Sensory: no tremor and no asterixis Psychiatric: Affect: + flat affect Results & Data Vital Signs (Past 12 Hours) Vital Signs Temp Pulse Pulse Resp BP Pulse Ox 08/01/18 07:25 36.8 C 62 16 145/66 H 96 07/31/18 23:32 36.8 C 60 16 137/54 L 93 Laboratory Results Laboratory Results - last 24 hr 07/31/18 11:32 Sodium 133 L Potassium 5.2 H Chloride 98 Carbon Dioxide 30 Anion Gap 5.0 BUN 60 H D Creatinine 5.32 H* D Est Cr Clr Drug Dosing 6.1 Est GFR ( Amer) 8.4 Est GFR (Non-Af Amer) 7.2 BUN/Creatinine Ratio 11.3 Glucose 105 H Calcium 9.0 Phosphorus 4.2 Albumin 2.7 L (1) Anemia Anemia type: due to chronic kidney disease (2) Lumbar compression fracture Encounter type: subsequent encounter Fracture healing: with routine healing Fracture type: closed Lumbar vertebra fracture level: L3 Qualified Code(s): S32.030D - Wedge compression fracture of third lumbar vertebra, subsequent encounter for fracture with routine healing (3) Back pain Back pain laterality: unspecified Back pain location: low back pain Chronicity: unspecified Sciatica presence: unspecified whether sciatica present Qualified Code(s): M54.5 - Low back pain (4) HTN (hypertension) Hypertension type: essential hypertension Qualified Code(s): I10 - Essential (primary) hypertension
[2018-08-01] MEDS: ASCORBIC ACID 500 MG TAB PO SCH (11:09)
[2018-08-01 14:41] LABS: BUN Creatinine Ratio 7.8 (10-20); Calcium 9.2 mg/dl (8.5-10.1); Creatinine Clr Calc Pharmacy 8.4 ml/min; Est GFR (African American) 12.3; Est GFR (Non-African American) 10.6; Potassium 4.2 mmol/L (3.5-5.1)
--- NOTE | 2018-08-01 19:01 | Hospitalist Progress Note ---
Date of Service August 01, 2018 Assessment & Plan (1) Back pain: Patient with osteoporosis, multiple compression fractures as the cause of her pain. No history of fall or trauma. No evidence of neurologic compromise. Patient has been seen by Ortho during past admissions and was recommended conservative management and PT. Patient presents again with severe lower back pain radiating around to the left flank and sometimes on the right. States that it never really improved. It seems as though the patient has not been adherent with the recommend regimen of medications. She has only been taking the Tramadol but not Naproxen, Lidoderm or Oxycodone. She has refused an orthotic back brace. Pain was improved with IV Dilaudid, tramadol helped minimally. Having allodynia at times on examination Discussed case with her nurse patient services coordinator at [facility] and dentistry [facility]-said we can use any opioid and would prefer acetaminophen over any NSAIDs. student accounts coordinator reported that she would be safe to have an injection from a pain management physician. Discussed the case with pain management here who was consulted-she is not a candidate from their perspective for injections as she is immunosuppressed. Orthopedic spine doctor does not want to perform kyphoplasty or any kind of procedure on her also given her immunosuppression and does not feel that kyphoplasty would give her much pain relief. Pain is minimally improved with hydrocodone -Encouraged use of baclofen today as ordered by pain management -Continue hydrocodone 1-2 tabs every 4 hours as needed pain -Have since discontinued tramadol -Continue Lidoderm, will DC naproxen given high blood pressures, and will use IV DIlaudid only for severe breakthrough pain as needed -Appreciate pain management recommendations-also added baclofen as needed -PT/OT evaluation recommends return home -Appreciate ortho-Spine evaluation -Declined orthotic back brace as it was more painful for her -Does not feel she can be on her own at home and family is not able to provide 24/7 care, yet now she is declining to go to rehab -Patient requests to stay overnight for dialysis tomorrow and then she will have a ride home after that. (2) Lumbar compression fracture: As above -Continue Calcium and Vitamin D supplements -consider Prolia treatment perhaps? -Recommended follow-up with rheumatology after discharge (3) ESRD (end stage renal disease) on dialysis: Patient receives HD q MWF through LUE AV fistula. She follows with Dr. Newby. Her K elevated on admission at 6.4 and again the following day at 6.1. No EKG changes. 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 Second transplant in 2008. Stable. No evidence of failure or rejection. -Continue Everolimus -continue Nebivolol (5) Constipation: Patient was administered Kayexlelate in the ER which did solve the problem initially. Was likely contributing to some of her abdominal pain as it did improve with moving her bowels Then with constipation again for 3 days which resolved with another dose of Kayexalate and increased dose of MiraLAX -Now with diarrhea -continue senna/docusate 2 tabs daily -Decrease MiraLAX back to daily as needed (6) HTN (hypertension): Blood pressure mildly elevated, could be secondary to pain -Continue Hydralazine 10mg nightly -continue Nebivolol -Continue to monitor (7) HLD (hyperlipidemia): Chronic -Continue Atorvastatin (8) Anemia: Stable. No active bleeding Anemia of chronic kidney disease -received EPO and is on po FeSO4 Follow as an outpatient (9) UTI (urinary tract infection): UA abnormal with nitrite on admission, urine culture now growing Klebsiella pneumoniae that is pansensitive -Completed a 3-day course of Rocephin (10) Acute hyperkalemia: as above -Now resolved (11) Hypoglycemia: Had hypoglycemia the morning after admission, likely secondary to receiving 10 units reg insulin IV the night before for hyperkalemia along with her amp of D50-now resolved -repeat accuchecks improved after treatment -not on insulin normally (12) Acute exacerbation of chronic low back pain: as above, due to lumbar compression fracture (13) Osteoporosis: -continue calcium and Vit D-consider adding on Prolia as outpt -Follow-up with rheumatology as an outpatient (14) DVT prophylaxis: Heparin SQ Dispo-pain control is fairly adequate, medically stable for discharge. Should have very close follow-up with PCP as an outpatient to avoid future admissions for back pain as there is nothing else that could be done for her as an inpatient Subjective Pt has c/o back pain that is "a little better." Now states that the pain is completely on the right lower back and none in the left lower back. Has c/o lo ose stools. Is now stating that she does not want transportation to rehab if it cannot be in the passenger front seat of car with her family member. She now has decided she wants to go home rather than to rehab, but cannot go home until tomorrow. Review of Systems Review of Systems: All systems reviewed & are unremarkable except as noted in HPI & below Physical Exam Constitutional: + thin; no acute distress Eyes: PERRL, conjunctivae normal, anicteric sclerae Neck: trachea midline, no thyromegaly Respiratory: normal respiratory effort, lungs clear to auscultation Cardiovascular: RRR, no murmur, no edema Gastrointestinal (Abdomen): normal bowel sounds, soft, nontender, no hepatos plenomegaly Musculoskeletal: Spine: lumbar spine normal to inspection and + paraspinal tenderness (exquisite pain with minimal palpation of right paraspinous muscles) Extremities: + extremities abnormal to inspection (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), no cyanosis and no clubbing Skin: no rashes, warm and dry Neurologic: moves all extremities and awake; no focal motor deficits Psychiatric: Orientation: alert and oriented x 3 Affect: + labile affect Results & Data Vital Signs (Past 12 Hours) Vital Signs Temp Pulse Resp BP Pulse Ox 08/01/18 16:00 36.6 C 64 21 192/65 H 98 08/01/18 07:25 36.8 C 62 16 145/66 H 96 Laboratory Results 08/01/18 Range/Units 13:56 Sodium 135 L (136-145) mmol/L Potassium 4.2 D (3.5-5.1) mmol/L Chloride 98 (98-107) mmol/L Carbon Dioxide 31 (21-32) mmol/L Anion Gap 6.0 (3-11) BUN 30 H (7-18) mg/dl Creatinine 3.89 H D (0.6-1.2) mg/dl Est Cr Clr Drug Dosing 8.4 ml/min Est GFR ( Amer) 12.3 Est GFR (Non-Af Amer) 10.6 BUN/Creatinine Ratio 7.8 L (10-20) Glucose 146 H (70-99) mg/dl Calcium 9.2 (8.5-10.1) mg/dl (1) Back pain Back pain laterality: unspecified Back pain location: low back pain Chronicity: unspecified Sciatica presence: unspecified whether sciatica present Qualified Code(s): M54.5 - Low back pain (2) Lumbar compression fracture Encounter type: subsequent encounter Fracture healing: with routine healing Fracture type: closed Lumbar vertebra fracture level: L3 Qualified Code(s): S32.030D - Wedge compression fracture of third lumbar vertebra, subsequent encounter for fracture with routine healing (3) Constipation Constipation type: unspecified constipation type Qualified Code(s): K59.00 - Constipation, unspecified (4) HTN (hypertension) Hypertension type: essential hypertension Qualified Code(s): I10 - Essential (primary) hypertension (5) HLD (hyperlipidemia) Hyperlipidemia type: unspecified Qualified Code(s): E78.5 - Hyperlipidemia, unspecified (6) Anemia Anemia type: due to chronic kidney disease
[2018-08-01] MEDS: FERROUS SULFATE 325 MG TAB PO SCH (21:24)
[2018-08-01] MEDS: CHOLECALCIFEROL 1,000 UNITS TAB PO SCH (21:24)
[2018-08-01] MEDS: HydrALAZINE 10 MG TAB PO SCH (21:25)
[2018-08-01] MEDS: ATORVASTATIN 20 MG TAB PO SCH (21:26)
[2018-08-02] MEDS: DOCUSATE SODIUM 100 MG CAP PO PRN (01:06)
[2018-08-02] MEDS: HYDROCODONE/ACETAMOPHEN 5/325MG TAB PO PRN ×3 (01:06→13:52)
[2018-08-02] MEDS: HEPARIN SOD 5,000 UNIT/0.5 ML VIAL SQ SCH ×3 (06:34→21:28)
[2018-08-02] MEDS: CALCIUM 600MG + VIT D 400 IU TAB PO SCH ×2 (07:47→21:26)
[2018-08-02] MEDS: POLYETHYLENE (MIRALAX) 17 GM PACK PO SCH ×4 (07:48→21:27)
[2018-08-02] MEDS: LIDOCAINE 5% 1 PATCH TD SCH (07:48)
[2018-08-02] MEDS: EVEROLIMUS 0.5 MG PO SCH ×2 (07:50→21:27)
[2018-08-02] MEDS: DOCUSATE SODIUM/SENNA 50/8.6MG TAB PO SCH ×2 (07:53→16:55)
[2018-08-02] MEDS: HYDROmorphone INJ 0.5 MG/0.5 ML SYR IV PRN (08:31)
--- NOTE | 2018-08-02 10:15 | Nephrology Progress Note ---
Date of Service August 02, 2018 Assessment & Plan (1) ESRD (end stage renal disease) on dialysis: -- HD MWF, orders entered into the EMR today and discussed with the HD nurse knitting demonstrator -- BP and volume status are acceptable -- Rx: MWF 3hr 2K 2.5Ca F-160NR Qb 400/ Qd 800 EDW 48 kg (currently below EDW by scale, 1 L UF entered for today) -- Monitor metabolic profile daily while inpatient -- Renal diet -- Medications are appropriately dosed for kidney function (2) Anemia: -- Epogen 4000 units QHD for anemia (Hgb<10) (3) Lumbar compression fracture: (4) Back pain: (5) Hx of liver transplant: (6) HTN (hypertension): -- Acceptable with Hydralazine and Nebivolol as Rx Subjective No acute events overnight. Pain control acceptable. Diane is breathing com fortably. She is ambulating. She is anticipating potential discharge home today. She denies any radicular symptoms. Denies constipation. Review of Systems Review of Systems: All systems reviewed & are unremarkable except as noted in HPI & below Physical Exam Constitutional: well developed; no acute distress Eyes: no scleral abnormality and no corneal abnormality ENMT: Mouth: no oral mucosal abnormality and oral mucous membranes not dry Neck: normal visual inspection and trachea midline Respiratory: normal respiratory effort; no respiratory distress Auscultation: lungs clear to auscultation bilaterally Cardiovascular: Heart Sounds: normal S1, normal S2 and + murmur; no gallop Vessels: no JVD Extremities: + AV fistula Gastrointestinal (Abdomen): Percussion/Palpation: abdomen soft; abdomen nontender Musculoskeletal: Extremities: no cyanosis, no clubbing and no petechiae Skin: normal turgor; no rashes Neurologic: Motor/Sensory: no tremor and no asterixis Psychiatric: Affect: + flat affect Results & Data Vital Signs (Past 12 Hours) Vital Signs Temp Pulse Resp BP Pulse Ox 08/02/18 07:18 36.6 C 62 16 184/55 H 96 08/02/18 06:30 166/64 H 08/02/18 01:06 36.8 C 72 18 194/72 H 95 08/01/18 23:38 36.8 C 69 19 151/64 H 95 Laboratory Results Laboratory Results - last 24 hr 08/01/18 13:56 Sodium 135 L Potassium 4.2 D Chloride 98 Carbon Dioxide 31 Anion Gap 6.0 BUN 30 H Creatinine 3.89 H D Est Cr Clr Drug Dosing 8.4 Est GFR ( Amer) 12.3 Est GFR (Non-Af Amer) 10.6 BUN/Creatinine Ratio 7.8 L Glucose 146 H Calcium 9.2 (1) Anemia Anemia type: due to chronic kidney disease (2) Lumbar compression fracture Encounter type: subsequent encounter Fracture healing: with routine healing Fracture type: closed Lumbar vertebra fracture level: L3 Qualified Code(s): S32.030D - Wedge compression fracture of third lumbar vertebra, subsequent encounter for fracture with routine healing (3) Back pain Back pain laterality: unspecified Back pain location: low back pain Chronicity: unspecified Sciatica presence: unspecified whether sciatica present Qualified Code(s): M54.5 - Low back pain (4) HTN (hypertension) Hypertension type: essential hypertension Qualified Code(s): I10 - Essential (primary) hypertension
[2018-08-02] MEDS: ASCORBIC ACID 500 MG TAB PO SCH (13:31)
[2018-08-02] MEDS: NEBIVOLOL HCL 5 MG TAB PO SCH (13:31)
--- NOTE | 2018-08-02 14:59 | XRay Report ---
KUB CLINICAL HISTORY: Generalized abdominal pain. Constipation. FINDINGS: An AP supine abdominal radiograph is correlated with abdominal CT dated 07/28/2018. There is a nonobstructed abdominal bowel gas pattern. Moderate colonic fecal retention is observed. Suture ma terial is noted in the right upper quadrant. Atherosclerotic calcification is noted in the abdominal vasculature. No evidence of intraperitoneal free air is seen on this supine image. The skeletal struc tures are osteopenic. Lumbar compression deformities are noted. The bony pelvis appears intact. IMPRESSION: Nonobstructed abdominal bowel gas pattern noting moderate colonic fecal retention. Electronically signed by: Kodi Talley M.D. 08/02/2018 2:58 PM
[2018-08-02] MEDS: HydrALAZINE HCL 20 MG/ML VIAL IV PRN (15:53)
[2018-08-02] MEDS: predniSONE 10 MG TABLET PO STA ×2 (16:27→18:43)
[2018-08-02] MEDS: DICLOFENAC SOD 1% GEL 100 GM TUBE EXT SCH ×2 (16:54→21:27)
[2018-08-02] MEDS: SENNA 8.6 MG TAB PO SCH (16:56)
--- NOTE | 2018-08-02 20:57 | Hospitalist Progress Note ---
Date of Service August 02, 2018 Assessment & Plan (1) Lumbar compression fracture: Multiple osteoporotic fractures. VERY POOR pain control despite multiple attempts at various meds. Poor response to hydrocodone, NSAIDs, baclofen, lidoderm, etc Start voltaren gel 4gm QID. Start prednisone 30mg daily for 4-5 days. K-pad heating. Can cont norco prn if desired. Cont gentle PT, OT. Present on Admission?: Yes (2) Constipation: KUB x-ray today -- still with copious stool. This may be cause of ongoing abd pain. Add senna. Cont miralax BID. Present on Admission?: Yes (3) UTI (urinary tract infection): completed 3 days of rocephin. Present on Admission?: Yes (4) ESRD (end stage renal disease) on dialysis: appreciate nephrology consult, recommendations, and management of HD. Present on Admission?: Yes (5) Hx of liver transplant: Cont everolimus BID as previous. Is 10+ years out from her transplant. Dr. Monreal spoke w/ her transplant team this week. See her prior notes for details of that conversation. LFTs in am for stability. Present on Admission?: Yes (6) DVT prophylaxis: change heparin to BID dosing due to ESRD I spoke with social work- I don't feel patient is safe to return home as she is alone much of the day. Patient previously had expressed interest in [facility]. SW to speak with patient again about wishes. Subjective patient continues to have severe pain - today it is centered around the lower thoracic/upper lumbar segments. she is also having right and left-sided abdominal pain. constipation -- did have small, firm BM this am. when asked if she thinks she could return home she stated NO. she does drive and does most ADLs but she feels she couldn't do these things now. Review of Systems Respiratory: no dyspnea Cardiovascular: no chest pain Gastrointestinal: + abdominal pain; no nausea Neurologic: no paralysis, no numbness and no radiating pain Physical Exam Constitutional: + acute distress (due to back pain) and + thin Respiratory: normal respiratory effort, lungs clear to auscultation Cardiovascular: Rate/Rhythm: regular rate and regular rhythm Heart Sounds: normal S1, normal S2 and + murmur (1/6 LSB) Vessels: posterior tibial pulses present and dorsalis pedis pulses present; no JVD Gastrointestinal (Abdomen): Inspection/Auscultation: normal bowel sounds; abdomen not distended Percussion/Palpation: + abdomen tender (right flank and left flank but no masses); no hepatosplenomegaly Musculoskeletal: tender to palpation over lumbar spine, upper segments. mild paraspinal pain as well. Psychiatric: A+Ox3, euthymic affect Results & Data Vital Signs (Past 12 Hours) Vital Signs Temp Pulse Pulse Resp BP BP Pulse Ox 08/02/18 16:28 72 138/56 L 08/02/18 15:00 36.9 C 73 20 191/67 H 94 08/02/18 13:26 36.4 C L 66 16 199/68 H 97 08/02/18 13:15 36.5 C 57 L 185/70 H 08/02/18 12:40 57 L 172/70 H 08/02/18 12:20 57 L 176/67 H 08/02/18 12:00 57 L 149/70 H 08/02/18 11:40 57 L 175/65 H 08/02/18 11:20 65 170/76 H 08/02/18 11:00 59 L 145/68 H 08/02/18 10:48 37 C 71 08/02/18 10:40 71 156/67 H 08/02/18 10:20 71 156/67 H 08/02/18 10:00 63 174/72 H 08/02/18 09:50 64 169/65 H (1) Lumbar compression fracture Encounter type: subsequent encounter Fracture healing: with routine healing Fracture type: closed Lumbar vertebra fracture level: L3 Qualified Code(s): S32.030D - Wedge compression fracture of third lumbar vertebra, subsequent encounter for fracture with routine healing (2) Constipation Constipation type: unspecified constipation type Qualified Code(s): K59.00 - Constipation, unspecified (3) UTI (urinary tract infection) Urinary tract infection type: acute cystitis Hematuria presence: without hematuria Qualified Code(s): N30.00 - Acute cystitis without hematuria
[2018-08-02] MEDS: HydrALAZINE 10 MG TAB PO SCH (21:26)
[2018-08-02] MEDS: CHOLECALCIFEROL 1,000 UNITS TAB PO SCH (21:27)
[2018-08-02] MEDS: FERROUS SULFATE 325 MG TAB PO SCH (21:27)
[2018-08-02] MEDS: ATORVASTATIN 20 MG TAB PO SCH (21:27)
[2018-08-02] MEDS: guaiFENesin 600 MG TABCR PO SCH (21:35)
[2018-08-02] MEDS ORDERED: BISACODYL 10 MG SUPP PR STA (21:44)
[2018-08-03] MEDS: HYDROmorphone INJ 0.5 MG/0.5 ML SYR IV PRN ×3 (03:57→19:44)
[2018-08-03] MEDS: HEPARIN SOD 5,000 UNIT/0.5 ML VIAL SQ SCH ×2 (06:24→19:50)
[2018-08-03 06:51] LABS: Albumin Level 2.9 gm/dl (3.4-5.0); BUN Creatinine Ratio 7.7 (10-20); Bilirubin Direct 0.2 mg/dl (0-0.2); Calcium 9.1 mg/dl (8.5-10.1); Creatinine Clr Calc Pharmacy 9.3 ml/min; Est GFR (African American) 13.8; Est GFR (Non-African American) 11.9; Potassium 4.2 mmol/L (3.5-5.1)
[2018-08-03 07:02] LABS: Bilirubin,Total 0.5 mg/dl (0.2-1); Total Protein 7.8 gm/dl (6.4-8.2)
[2018-08-03] MEDS: DOCUSATE SODIUM/SENNA 50/8.6MG TAB PO SCH (08:16)
[2018-08-03] MEDS: LIDOCAINE 5% 1 PATCH TD SCH (08:17)
[2018-08-03] MEDS: NEBIVOLOL HCL 5 MG TAB PO SCH (08:17)
[2018-08-03] MEDS: CALCIUM 600MG + VIT D 400 IU TAB PO SCH ×2 (08:18→19:47)
[2018-08-03] MEDS: DICLOFENAC SOD 1% GEL 100 GM TUBE EXT SCH ×4 (08:18→19:56)
[2018-08-03] MEDS: EVEROLIMUS 0.5 MG PO SCH ×2 (08:19→19:50)
[2018-08-03] MEDS: guaiFENesin 600 MG TABCR PO SCH ×2 (09:01→19:46)
[2018-08-03] MEDS: POLYETHYLENE (MIRALAX) 17 GM PACK PO SCH ×2 (09:01→19:49)
--- NOTE | 2018-08-03 11:23 | Nephrology Progress Note ---
Date of Service August 03, 2018 Assessment & Plan (1) ESRD (end stage renal disease) on dialysis: -- Patient was last dialyzed yesterday without complication. Volume status & electrolyte balance remain acceptable at this time. 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 Second transplant in 2006. Stable. No evidence of failure or rejection. -Continue Everolimus -Nebivolol (6) HTN (hypertension): -- Acceptable with Hydralazine and Nebivolol as Rx Subjective Ms. Li was seen & examined in her hospital room this morning. She reports constipation alternating w/ diarrhea overnight. She has ongoing severe back pain which limits her ability to care for herself. She expressed great concern about returning home on her own or her ability to ride public transportation to outpatient HD Review of Systems Constitutional: + body aches and + fatigue; no fever and no chills Physical Exam Constitutional: + frail appearing Eyes: PERRL, conjunctivae normal, anicteric sclerae Neck: trachea midline, no thyromegaly Respiratory: normal respiratory effort, lungs clear to auscultation Cardiovascular: Rate/Rhythm: regular rate and regular rhythm Gastrointestinal (Abdomen): normal bowel sounds, soft, nontender, no hepatosplenomegaly Results & Data Vital Signs (Past 12 Hours) Vital Signs Temp Pulse Resp BP Pulse Ox 08/03/18 07:10 36.8 C 70 16 155/60 H 95 08/02/18 23:33 37.1 C 71 20 164/51 H 95 Laboratory Results Laboratory Tests 08/03/18 05:26 Sodium 132 L Potassium 4.2 Chloride 100 Carbon Dioxide 27 BUN 27 H Creatinine 3.52 H D BUN/Creatinine Ratio 7.7 L Albumin 2.9 L (1) Anemia Anemia type: due to chronic kidney disease (2) Lumbar compression fracture Encounter type: subsequent encounter Fracture healing: with routine healing Fracture type: closed Lumbar vertebra fracture level: L3 Qualified Code(s): S32.030D - Wedge compression fracture of third lumbar vertebra, subsequent encounter for fracture with routine healing (3) Back pain Back pain laterality: unspecified Back pain location: low back pain Chronicity: unspecified Sciatica presence: unspecified whether sciatica present Qualified Code(s): M54.5 - Low back pain (4) HTN (hypertension) Hypertension type: essential hypertension Qualified Code(s): I10 - Essential (primary) hypertension
[2018-08-03] MEDS: ASCORBIC ACID 500 MG TAB PO SCH (12:32)
[2018-08-03 12:40] LABS: Hematocrit (blood only) 32.9 % (37-47); Hemoglobin 10.7 g/dL (12.0-16.0); Mean Corpuscular Hgb Conc 32.5 g/dL (32-36); Mean Platelet Volume 10.5 fL (7.4-10.4); Platelet Count 144 K/uL (130-400); RDW Coefficient of Variation 18.7 % (11.5-14.5); RDW Standard Deviation 59.4 fL (36.4-46.3); Red Blood Count 3.74 M/uL (4.2-5.4); White Blood Count 5.32 K/uL (4.8-10.8)
--- NOTE | 2018-08-03 19:24 | Magnetic Resonance Report ---
MR lumbar spine wo con CLINICAL HISTORY: Persistent low back pain. TECHNIQUE: Sagittal and axial T1, T2 and STIR images were obtained. COMPARISON STUDY: CT scan dated 07/28/2018 OBSERVATIONS: There are chronic L1-L5 endplate compression deformities. There are no areas of marrow edema to indic ate an acute fracture. L1-2: No disc protrusions or extrusions. No evidence of spinal canal or neural foraminal compromise. L2-3: There is minimal retropulsion of the L3 superior endplate compression fracture. This results in a slight spinal canal narrowing. There is no significant foraminal narrowing. No disc herniations ar e visualized. L3-4: There is a minor circumferential disc bulge. There is mild trying or spinal canal narrowing. Th ere is no significant foraminal narrowing L4-5: There is a mild circumferential disc bulge. There is minor trying or spinal canal narrowing. Th ere is no significant foraminal narrowing L5-S1: There is a mild circumferential disc bulge. There is facet joint arthropathy. There is minimal spinal canal narrowing. There is no significant foraminal narrowing. The conus medullaris and cauda equina appear normal. IMPRESSION: 1. Chronic L1-L5 vertebral body endplate compression deformities 2. No acute fractures identified 3. Mild multilevel spondylitic changes with very mild spinal canal narrowing at the L2-3 through L5-S 1 levels Electronically signed by: Dl Chaves M.D. 08/03/2018 7:23 PM
[2018-08-03] MEDS ORDERED: BISACODYL 10 MG SUPP PR STA (19:36)
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
[2018-08-03] MEDS: CHOLECALCIFEROL 1,000 UNITS TAB PO SCH (19:46)
[2018-08-03] MEDS: ATORVASTATIN 20 MG TAB PO SCH (19:46)
[2018-08-03] MEDS: FERROUS SULFATE 325 MG TAB PO SCH (19:47)
[2018-08-03] MEDS: HydrALAZINE 10 MG TAB PO SCH (19:47)
--- NOTE | 2018-08-03 20:49 | Hospitalist Progress Note ---
Date of Service August 03, 2018 Assessment & Plan (1) Lumbar compression fracture: Multiple osteoporotic fractures most of which have appeared old/chronic on most recent imaging. VERY POOR pain control despite multiple attempts at various meds. Poor response to hydrocodone, NSAIDs, baclofen, lidoderm, etc Dilaudid IV has worked best for her. I am quite perplexed by her ongoing pain issues. The pattern of her pain does not make sense. She has concomitant pain in her abdomen and flanks. It is conceivable that the anterior abdominal wall pain is radicular in origin but the locations of that anterior pain doesn't match well with her spine imaging. Typically compression fracture pain confines itself to the spinal region/paraspinal region only (unless there is retropulsion with cord compression). To help shed light on this further will REPEAT the MRIs of her t-spine and l- spine to r/o any new compression fracture or cord lesion. Of note - patient refused the prednisone. STOP the norco and baclofen since neither have helped. Check B12, 25-OH vitamin D, CPK, etc in am to be complete to exclude other diagnoses contributing to pain. (2) Abdominal pain: constipation? other? radicular pain from back? has had 3 CTs of the abd/pelvis since the winter w/o underlying diagnosis. cont to treat the constipation MRI of t-spine and l-spine today -- see above (3) Constipation: Cont senna. Cont miralax BID. (4) UTI (urinary tract infection): completed 3 days of rocephin. (5) ESRD (end stage renal disease) on dialysis: appreciate nephrology consult, recommendations, and management of HD. (6) Hx of liver transplant: Cont everolimus BID as previous. Is 10+ years out from her transplant. Dr. Monreal spoke w/ her transplant team this week. See her prior notes for details of that conversation. LFTs stable today. (7) DVT prophylaxis: heparin BID I extensively updated the pt's daughter by phone today. reviewed clinical course and plan. we discussed post-discharge plan including possible placement at [facility] for rehab. Subjective patient cont with severe lumbar back pain and significant flank pain/abd pain oral narcotics and the topical voltaren gel are not helping much she clearly tells me that the IV dilaudid works best and "lasts the longest" in terms of pain relief denies b/l groin pain denies b/l leg pain no radicular symptoms still having considerable difficulty doing ADLs because of pains Review of Systems Constitutional: no fever Respiratory: no cough, no dyspnea and no pain on inspiration Cardiovascular: no chest pain Gastrointestinal: + abdominal pain (but not brought on by eating food); no na usea and no vomiting Musculoskeletal: as per Subjective / HPI and + limited range of motion; no ra dicular pain, no myalgia and no body aches Physical Exam Constitutional: + acute distress (due to back pain) and + thin anxious Respiratory: normal respiratory effort, lungs clear to auscultation Cardiovascular: Rate/Rhythm: regular rate and regular rhythm Heart Sounds: normal S1, normal S2 and + murmur (1/6 LSB) Vessels: posterior tibial pulses present and dorsalis pedis pulses present; no JVD Gastrointestinal (Abdomen): Inspection/Auscultation: normal bowel sounds; abdomen not distended Percussion/Palpation: + abdomen tender (right flank and left flank but no masses; not tender centrally); no hepatosplenomegaly Musculoskeletal: considerable paraspinal tenderness at t-spine/l-spine junction to palpation Psychiatric: A+Ox3, euthymic affect Results & Data Vital Signs (Past 12 Hours) Vital Signs Temp Pulse Resp BP Pulse Ox 08/03/18 16:10 169/78 H 08/03/18 15:31 36.7 C 71 18 186/65 H 96 Laboratory Results Laboratory Results - last 24 hr 08/03/18 08/03/18 05:26 05:35 WBC 5.32 RBC 3.74 L Hgb 10.7 L Hct 32.9 L MCV 88.0 MCH 28.6 MCHC 32.5 RDW Std Deviation 59.4 H RDW Coeff of Darci 18.7 H Plt Count 144 MPV 10.5 H Sodium 132 L Potassium 4.2 Chloride 100 Carbon Dioxide 27 Anion Gap 5.0 BUN 27 H Creatinine 3.52 H D Est Cr Clr Drug Dosing 9.3 Est GFR ( Amer) 13.8 Est GFR (Non-Af Amer) 11.9 BUN/Creatinine Ratio 7.7 L Glucose 87 Calcium 9.1 Total Bilirubin 0.5 Direct Bilirubin 0.2 AST 35 ALT 26 Alkaline Phosphatase 184 H Total Protein 7.8 Albumin 2.9 L TSH 1.810 (1) UTI (urinary tract infection) Hematuria presence: without hematuria Urinary tract infection type: acute cystitis Qualified Code(s): N30.00 - Acute cystitis without hematuria (2) Lumbar compression fracture Encounter type: subsequent encounter Fracture healing: with routine healing Fracture type: closed Lumbar vertebra fracture level: L3 Qualified Code(s): S32.030D - Wedge compression fracture of third lumbar vertebra, subsequent encounter for fracture with routine healing (3) Constipation Constipation type: unspecified constipation type Qualified Code(s): K59.00 - Constipation, unspecified (4) Abdominal pain Abdominal location: generalized Qualified Code(s): R10.84 - Generalized abdominal pain
[2018-08-03] MEDS: SENNA 8.6 MG TAB PO SCH (23:45)
[2018-08-04] MEDS ORDERED: BISACODYL 10 MG SUPP PR ONE (01:00)
[2018-08-04] MEDS: POLYETHYLENE (MIRALAX) 17 GM PACK PO SCH ×2 (08:26→19:53)
[2018-08-04] MEDS: DOCUSATE SODIUM/SENNA 50/8.6MG TAB PO SCH (08:26)
[2018-08-04] MEDS: HEPARIN SOD 5,000 UNIT/0.5 ML VIAL SQ SCH ×2 (08:27→19:53)
[2018-08-04] MEDS: DICLOFENAC SOD 1% GEL 100 GM TUBE EXT SCH ×4 (08:27→19:54)
[2018-08-04] MEDS: CALCIUM 600MG + VIT D 400 IU TAB PO SCH ×2 (08:27→19:55)
[2018-08-04] MEDS: NEBIVOLOL HCL 5 MG TAB PO SCH (08:27)
[2018-08-04] MEDS: LIDOCAINE 5% 1 PATCH TD SCH (08:29)
[2018-08-04] MEDS: HydrALAZINE 10 MG TAB PO SCH ×2 (09:22→19:57)
[2018-08-04] MEDS: EVEROLIMUS 0.5 MG PO SCH ×2 (09:23→19:56)
[2018-08-04] MEDS: HYDROmorphone INJ 0.5 MG/0.5 ML SYR IV PRN ×2 (09:24→20:47)
[2018-08-04] MEDS: guaiFENesin 600 MG TABCR PO SCH ×2 (09:27→19:55)
--- NOTE | 2018-08-04 10:25 | Nephrology Progress Note ---
Date of Service August 04, 2018 Assessment & Plan (1) ESRD (end stage renal disease) on dialysis: -- Patient was last dialyzed Sunday without complication. Volume status & electrolyte balance remain acceptable at this time. -- Rx: MWF 3hr 2K 2.5Ca F-160NR Qb 400/ Qd 800 EDW 48 kg (currently below EDW by scale, 1 L UF entered for today) -- Will provide HD in am. 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 Second transplant in 2006. Stable. No evidence of failure or rejection. -- Continue Everolimus -- Nebivolol (6) HTN (hypertension): -- Acceptable with Hydralazine and Nebivolol as Rx Subjective Miss Li was seen & examined in her hospital room this morning. She complains of persistent back discomfort which limits her ability to perform ADL's Review of Systems Constitutional: + body aches and + fatigue; no fever and no chills Physical Exam Constitutional: + frail appearing Eyes: PERRL, conjunctivae normal, anicteric sclerae Neck: trachea midline, no thyromegaly Respiratory: normal respiratory effort, lungs clear to auscultation Cardiovascular: Rate/Rhythm: regular rate and regular rhythm Gastrointestinal (Abdomen): normal bowel sounds, soft, nontender, no hepatosplenomegaly Results & Data Vital Signs (Past 12 Hours) Vital Signs Temp Pulse Pulse Resp BP Pulse Ox 08/04/18 07:21 36.7 C 71 16 162/66 H 08/03/18 23:15 36.9 C 68 18 158/64 H 95 (1) Anemia Anemia type: due to chronic kidney disease (2) Lumbar compression fracture Encounter type: subsequent encounter Fracture healing: with routine healing Fracture type: closed Lumbar vertebra fracture level: L3 Qualified Code(s): S32.030D - Wedge compression fracture of third lumbar vertebra, subsequent encounter for fracture with routine healing (3) Back pain Back pain laterality: unspecified Back pain location: low back pain Chronicity: unspecified Sciatica presence: unspecified whether sciatica present Qualified Code(s): M54.5 - Low back pain (4) HTN (hypertension) Hypertension type: essential hypertension Qualified Code(s): I10 - Essential (primary) hypertension
[2018-08-04] MEDS: ASCORBIC ACID 500 MG TAB PO SCH (12:04)
[2018-08-04 12:30] LABS: BUN Creatinine Ratio 9.1 (10-20); C Reactive Protein 1.05 mg/dl (0-0.29); Calcium 9.1 mg/dl (8.5-10.1); Creatinine Clr Calc Pharmacy 6.5 ml/min; Est GFR (African American) 8.9; Est GFR (Non-African American) 7.7; Potassium 4.6 mmol/L (3.5-5.1)
[2018-08-04] MEDS ORDERED: predniSONE 20 MG TAB PO STA (12:53)
--- NOTE | 2018-08-04 18:21 | Hospitalist Progress Note ---
Date of Service August 04, 2018 Assessment & Plan (1) Somatic dysfunction of thoracic region: Somatic dysfunction of the thoracic region the upper lumbar region and possibly a little bit intercostals in the rib region. -OMT as above -Patient tolerated well -Give consideration of trial of topical diclofenac specifically to this area, as an augmenter for OMT -Appears quite consistent with her pain being a biomechanical diagnosis, I suspect what is going on is that the underlying bony architecture being distorted with arthritis and compression fractures has altered origin/insertion of her paraspinal musculature and/or her lower ribs, creating a pattern of spasticity. That said it appears that the spastic muscles themselves, rather than the bones, are the culprit for actually causing her pain. -More than likely she would benefit from a steady ongoing modality of treatment with OMT, it is quite possible that today's treatment want to "make much of a dent" in her symptoms given how severe they been and how long they have been going, but given that she did have a decent soft tissue response, is also possible it may start to help. -Neither of the osteopathic family medicine residents are on the inpatient hospitalist service this week, but I will reach out to them to see if they are possibly available to continue OMT if possible. -Certainly once she is out of the hospital ongoing OMT to this region with either Dr. Bob Wise DO, or 1 of our osteopathic family medicine residents, would most likely benefit her over time. -Of note given the severity and chronicity of her symptoms, my speculation would be that it would probably take several weeks to maybe 2 months of fairly consistent OMT to start to improve symptoms, but given the findings above, it seems quite consistent with biomechanical diagnosis as the cause of her pain. Subjective Case discussed with Dr. Melchor, he asked me to see patient and given consideration for OMT. He also wanted me to look over the situation to see if it seemed possible for her to have a biomechanical/muscular diagnosis. She has ongoing back pain in her lower thoracic to upper lumbar region, it seems to be migratory left worse than right at most times but at times right worse than left Physical Exam Physical Exam: Osteopathic structural examleft greater than right lower thoracic and upper lumbar spine paraspinal muscles very high tone, very tender, decreased range of motion. The seem to extend to a degree to the intercostal muscles between ribs 11 and 12 as well. Various techniques including direct myofascial, inhibitory pressure, and ligamentous articular strain were done with surprising improvement in the soft tissue (she still has a decent degree of spasticity but there was fasciculations that would indicate a reasonable tissue response) and while the manipulation was somewhat painful, she was able to tolerate it well and appreciated this approach. Results & Data Vital Signs (Past 12 Hours) Vital Signs Temp Pulse Resp BP Pulse Ox 08/04/18 14:59 36.7 C 70 16 188/67 H 97 08/04/18 07:21 36.7 C 71 16 162/66 H
--- NOTE | 2018-08-04 19:06 | Hospitalist Progress Note ---
Date of Service August 04, 2018 Assessment & Plan (1) Back pain: acute/chronic. has been dealing with this issue off & on since May. pain much worse in the last 2 weeks. meds tried without efficacy -- lidoderm; topical voltaren; tylenol; norco (5's and 10's); oxycodone; tramadol; baclofen. the patient consistently states that the only med that gives her pain relief is the IV dilaudid. I have ordered her a heating pad but there has been a shortage of these in the hospital. repeat MRIs of the t-spine and l-spine yesterday with CHRONIC compression fractures but no significant spinal or foraminal stenosis. her pain is consistently in the paraspinal musculature on the left. I consulted Dr. Hernandez from our hospitalist team today to perform osteopathic manipulation in the hopes we can get ahead of this pain. I strongly recommended a trial of prednisone as this is about the only medication we have not attempted this admission or in the past. There is no contraindication from a liver transplant standpoint to use steroids. cont PT, OT. consider accupuncture?? I obtained other labs today to ensure no other process was present contributing to her symptoms - b12, vitamin D, CPK, sed rate, etc -- all normal or negative. I counseled the patient that we need to move away from the IV dilaudid soon with the hopes of transitioning her out of the hospital to rehab. I checked w/ pharmacy today- unfortunately cymbalta is contraindicated in ESRD. Could consider low-dose nortriptyline. Present on Admission?: Yes (2) Lumbar compression fracture: Multiple osteoporotic fractures - old/chronic on MRIs obtained yesterday. VERY POOR pain control despite multiple attempts at various meds. See above in "back pain" (3) Abdominal pain: constipation? other? radicular pain from back? has had 3 CTs of the abd/pelvis since the winter w/o underlying diagnosis. cont to treat the constipation MRI of t-spine and l-spine today -- see above I believe that constipation has been playing a role some of this could be thoracic nerve root irritation but felt to be less likely (4) Constipation: Cont senna. Cont miralax BID. Improved. (5) UTI (urinary tract infection): completed 3 days of rocephin. resolved clinically. (6) ESRD (end stage renal disease) on dialysis: appreciate nephrology consult, recommendations, and management of HD. Schedule - M/W/F (7) Hx of liver transplant: 2005 Cont everolimus BID as previous. Dr. Monreal spoke w/ her transplant team this week. See her prior notes for details of that conversation. LFTs stable today. No contraindication from transplant team's perspective for epidural injections, steroids, etc (8) DVT prophylaxis: heparin BID updated the pt's daughter by phone yesterday dispo - hopefully [facility] Subjective patient standing and walking in the room during my visit. she appears depressed but denies feeling depressed. the pain persists in her back - left paraspinal region - similar location as yesterday. still no radicular symptoms in the legs. had large bowel movement today per staff yet still c/o abdominal discomfort over her flanks. Review of Systems Constitutional: no fever Respiratory: no dyspnea and no pain on inspiration Cardiovascular: no chest pain Gastrointestinal: as per Subjective / HPI; no nausea and no vomiting Physical Exam Constitutional: + acute distress (when turning sharply or trying to sit down she has significant pain in back) and + thin Respiratory: normal respiratory effort, lungs clear to auscultation Cardiovascular: Rate/Rhythm: regular rate and regular rhythm Heart Sounds: normal S1, normal S2 and + murmur (1/6 LSB) Vessels: posterior tibial pulses present and dorsalis pedis pulses present; no JVD Gastrointestinal (Abdomen): normal bowel sounds, soft, nontender, no hepatosplenomegaly Inspection/Auscultation: abdomen not distended Musculoskeletal: tender to palpation over paraspinal region on left near junction of t=spine and l=spine; no spinous process pain; minimal tenderness paraspinal region on right Neurologic: strength 5/5 x 4 exts Psychiatric: A+Ox3, euthymic affect Results & Data Vital Signs (Past 12 Hours) Vital Signs Temp Pulse Resp BP Pulse Ox 08/04/18 14:59 36.7 C 70 16 188/67 H 97 08/04/18 07:21 36.7 C 71 16 162/66 H Laboratory Results Laboratory Results - last 24 hr 08/04/18 08/04/18 08/04/18 11:49 11:49 11:49 ESR 44 H Sodium 137 Potassium 4.6 Chloride 104 Carbon Dioxide 25 Anion Gap 8.0 BUN 46 H D Creatinine 5.05 H* D Est Cr Clr Drug Dosing 6.5 Est GFR ( Amer) 8.9 Est GFR (Non-Af Amer) 7.7 BUN/Creatinine Ratio 9.1 L Glucose 142 H Calcium 9.1 Total Creatine Kinase 75 C-Reactive Protein 1.05 H Vitamin B12 1497 H 25-OH Vitamin D Total 08/04/18 11:49 ESR Sodium Potassium Chloride Carbon Dioxide Anion Gap BUN Creatinine Est Cr Clr Drug Dosing Est GFR ( Amer) Est GFR (Non-Af Amer) BUN/Creatinine Ratio Glucose Calcium Total Creatine Kinase C-Reactive Protein Vitamin B12 25-OH Vitamin D Total 52.1 (1) UTI (urinary tract infection) Hematuria presence: without hematuria Urinary tract infection type: acute cystitis Qualified Code(s): N30.00 - Acute cystitis without hematuria (2) Lumbar compression fracture Encounter type: subsequent encounter Fracture healing: with routine healing Fracture type: closed Lumbar vertebra fracture level: L3 Qualified Code(s): S32.030D - Wedge compression fracture of third lumbar vertebra, subsequent encounter for fracture with routine healing (3) Abdominal pain Abdominal location: generalized Qualified Code(s): R10.84 - Generalized abdominal pain (4) Constipation Constipation type: unspecified constipation type Qualified Code(s): K59.00 - Constipation, unspecified (5) Back pain Back pain laterality: unspecified Back pain location: low back pain Chronicity: unspecified Sciatica presence: unspecified whether sciatica present Qualified Code(s): M54.5 - Low back pain
[2018-08-04] MEDS: FERROUS SULFATE 325 MG TAB PO SCH (19:54)
[2018-08-04] MEDS: CHOLECALCIFEROL 1,000 UNITS TAB PO SCH (19:55)
[2018-08-04] MEDS: ATORVASTATIN 20 MG TAB PO SCH (19:55)
[2018-08-05] MEDS ORDERED: SODIUM CHLORIDE 0.9% 1000ML 1,000 ML IV PRN (07:00)
[2018-08-05] MEDS ORDERED: EPOETIN ALFA 4,000 UNIT/ML VIAL IV SCH (07:00)
[2018-08-05] MEDS ORDERED: HEPARIN SOD (PORCINE) 1000 UNIT/ML 10 ML VIAL IV SCH ×2 (07:00)
[2018-08-05] MEDS: NEBIVOLOL HCL 5 MG TAB PO SCH (07:45)
[2018-08-05] MEDS: DICLOFENAC SOD 1% GEL 100 GM TUBE EXT SCH ×4 (07:45→21:44)
[2018-08-05] MEDS: HydrALAZINE 10 MG TAB PO SCH ×2 (07:45→21:39)
[2018-08-05] MEDS: CALCIUM 600MG + VIT D 400 IU TAB PO SCH ×2 (07:46→21:41)
[2018-08-05] MEDS: EVEROLIMUS 0.5 MG PO SCH ×2 (07:46→21:43)
[2018-08-05] MEDS: predniSONE 10 MG TABLET PO SCH (07:46)
[2018-08-05] MEDS: HEPARIN SOD 5,000 UNIT/0.5 ML VIAL SQ SCH ×2 (08:36→21:39)
[2018-08-05] MEDS: guaiFENesin 600 MG TABCR PO SCH ×2 (08:36→21:41)
[2018-08-05] MEDS: LIDOCAINE 5% 1 PATCH TD SCH (08:36)
[2018-08-05] MEDS: OXYCODONE HCL IR 5 MG TAB (IMMEDIATE RELEASE) PO PRN ×4 (08:54→21:31)
--- NOTE | 2018-08-05 10:39 | Nephrology Progress Note ---
Date of Service August 05, 2018 Assessment & Plan (1) ESRD (end stage renal disease) on dialysis: -- HD today. 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 Second transplant in 2006. Stable. No evidence of failure or rejection. -- Continue Everolimus -- Nebivolol (5) HTN (hypertension): -- Acceptable with Hydralazine and Nebivolol as Rx Subjective Miss Li was seen & examined in preparation for HD this am. She reports that she underwent Osteopathic Manipulation Therapy of her paraspinous muscles yesterday and she did have some relief of her discomfort. She would like to continue with this therapy. Review of Systems Constitutional: + body aches and + fatigue; no fever and no chills Respiratory: no dyspnea Cardiovascular: no chest pain at rest Gastrointestinal: no abdominal pain and no diarrhea/loose stools Physical Exam Constitutional: + frail appearing Eyes: PERRL, conjunctivae normal, anicteric sclerae Neck: trachea midline, no thyromegaly Respiratory: normal respiratory effort, lungs clear to auscultation Cardiovascular: Rate/Rhythm: regular rate and regular rhythm Gastrointestinal (Abdomen): normal bowel sounds, soft, nontender, no hepatosplenomegaly Results & Data Vital Signs (Past 12 Hours) Vital Signs Temp Pulse Pulse Resp BP Pulse Ox 08/05/18 07:09 36.4 C L 81 20 169/57 H 92 08/04/18 23:02 36.9 C 72 18 164/57 H 95 (1) Anemia Anemia type: due to chronic kidney disease (2) Back pain Back pain laterality: unspecified Back pain location: low back pain Chronicity: unspecified Sciatica presence: unspecified whether sciatica present Qualified Code(s): M54.5 - Low back pain (3) HTN (hypertension) Hypertension type: essential hypertension Qualified Code(s): I10 - Essential (primary) hypertension
[2018-08-05] MEDS: POLYETHYLENE (MIRALAX) 17 GM PACK PO SCH ×2 (13:19→21:40)
[2018-08-05] MEDS: ASCORBIC ACID 500 MG TAB PO SCH (13:19)
[2018-08-05] MEDS: DOCUSATE SODIUM 100 MG CAP PO PRN (16:16)
[2018-08-05] MEDS: HydrALAZINE HCL 20 MG/ML VIAL IV PRN (17:37)
--- NOTE | 2018-08-05 19:30 | Hospitalist Progress Note ---
Date of Service August 05, 2018 Assessment & Plan (1) Back pain: acute/chronic. has been dealing with this issue off & on since May 2018. pain much worse in the last 2 weeks. meds tried without efficacy -- lidoderm; topical voltaren; tylenol; norco (5's and 10's); oxycodone (by report); tramadol; baclofen. the patient consistently stated that the only med that gives her pain relief is the IV dilaudid. repeat MRIs of the t-spine and l-spine with CHRONIC compression fractures but no significant spinal or foraminal stenosis. her pain has consistently been in the paraspinal musculature on the left. I consulted Dr. Hernandez from our hospitalist team who performed osteopathic manipulation therapy of her back and this DID help her pain. she wishes to continue this treatment after hospital d/c. could also consider accupuncture. will d/c dilaudid today. oxycodone 5mg q4h prn in taya. continue prednisone 30mg/day for 4-5 days. cont PT, OT. I obtained other labs yesterday to ensure no other process was present contributing to her symptoms - b12, vitamin D, CPK, sed rate, etc -- all normal or negative overall I feel she is better than several days ago (2) Lumbar compression fracture: Multiple osteoporotic fractures - old/chronic on MRIs obtained 2 days ago. VERY POOR pain control despite multiple attempts at various meds. See above in "back pain" (3) Abdominal pain: has had 3 CTs of the abd/pelvis since the winter w/o underlying pathology. 2 small hernias present but no obstruction. has had constipation and remains on bowel regimen for such. GI referral after d/c if pain persists? some of this could be thoracic nerve root irritation as well but less certain (4) Constipation: Cont senna. Cont miralax BID. Improved. (5) UTI (urinary tract infection): completed 3 days of rocephin. resolved clinically. (6) ESRD (end stage renal disease) on dialysis: appreciate nephrology consult, recommendations, and management of HD. Schedule - M/W/F (7) Hx of liver transplant: 2005 Cont everolimus BID as previous. Dr. Monreal spoke w/ her transplant team last week. No contraindication from transplant team's perspective for epidural injections, steroids, etc LFTs remain stable (8) HTN (hypertension): increase hydralazine to 10mg TID cont nebivolol adjust meds as needed pain likely contributing to BP spikes (9) DVT prophylaxis: heparin BID updated the pt's daughter by phone 08/04 dispo - hopefully [facility] next 1-2 days pending insurance auth and acceptance there Subjective pt reports that the OMT given by Dr. Hernandez was very effective yesterday at relieving her back pain. she slept better overnight. with that said she received IV dilaudid at ~9pm last night for "9/10" pain per the JUN. she reports the oxycodone is helping her pain today. no apparent side effects. reports abdominal bloating as well. we discussed going to [facility]. she was anxious about this -- she talked about how "she couldn't possibly wear clothes there" and was worried about transportation from [facility] to [facility] in the end she is willing to go there she also voiced she wanted to continue OMT with Dr Wise as an outpatient Review of Systems Constitutional: + anorexia (reports that this is chronic - doesn't like food??) Respiratory: no dyspnea and no pain on inspiration Cardiovascular: no chest pain Gastrointestinal: + bloating; no nausea and no vomiting Physical Exam Constitutional: + thin; no acute distress and not ill appearing best she has looked in several days very anxious however Respiratory: normal respiratory effort, lungs clear to auscultation Cardiovascular: Rate/Rhythm: regular rate and regular rhythm Heart Sounds: normal S1, normal S2 and + murmur (1/6 LSB) Vessels: posterior tibial pulses present and dorsalis pedis pulses present; no JVD Gastrointestinal (Abdomen): normal bowel sounds, soft, nontender, no hepatosplenomegaly Inspection/Auscultation: abdomen not distended Percussion/Palpation: + hernia (right side of abdomen - reducible; midline -also reducible) Musculoskeletal: continues with paraspinal tenderness - t-spine/l-spine junction - mainly left and some on the right Psychiatric: A+Ox3, euthymic affect Results & Data Vital Signs (Past 12 Hours) Vital Signs Temp Pulse Pulse Resp BP BP Pulse Ox 08/05/18 18:39 178/72 H 08/05/18 17:25 190/75 H 08/05/18 16:06 36.6 C 71 20 174/67 H 97 08/05/18 14:25 162/86 H 08/05/18 13:58 36.6 C 78 164/73 H 08/05/18 12:00 61 166/73 H 08/05/18 11:40 60 173/78 H 08/05/18 11:20 71 181/79 H 08/05/18 10:59 62 181/79 H 08/05/18 10:40 63 177/80 H 08/05/18 10:20 66 178/84 H 08/05/18 10:00 63 180/83 H 08/05/18 09:40 71 181/100 H 08/05/18 09:15 36.6 C 73 (1) UTI (urinary tract infection) Hematuria presence: without hematuria Urinary tract infection type: acute cystitis Qualified Code(s): N30.00 - Acute cystitis without hematuria (2) Back pain Back pain laterality: unspecified Back pain location: low back pain Chronicity: unspecified Sciatica presence: unspecified whether sciatica present Qualified Code(s): M54.5 - Low back pain (3) Lumbar compression fracture Encounter type: subsequent encounter Fracture healing: with routine healing Fracture type: closed Lumbar vertebra fracture level: L3 Qualified Code(s): S32.030D - Wedge compression fracture of third lumbar vertebra, subsequent encounter for fracture with routine healing (4) Abdominal pain Abdominal location: generalized Qualified Code(s): R10.84 - Generalized abdominal pain (5) Constipation Constipation type: unspecified constipation type Qualified Code(s): K59.00 - Constipation, unspecified (6) HTN (hypertension) Hypertension type: essential hypertension Qualified Code(s): I10 - Essential (primary) hypertension
[2018-08-05] MEDS ORDERED: HydrALAZINE 10 MG TAB PO ONE (19:45)
[2018-08-05] MEDS: FERROUS SULFATE 325 MG TAB PO SCH (21:41)
[2018-08-05] MEDS: ATORVASTATIN 20 MG TAB PO SCH (21:41)
[2018-08-05] MEDS: CHOLECALCIFEROL 1,000 UNITS TAB PO SCH (21:42)
[2018-08-06] MEDS ORDERED: guaiFENesin SUGAR FREE 100 MG/5 ML UDC PO STA (03:05)
[2018-08-06 06:29] LABS: Hematocrit (blood only) 29.9 % (37-47); Hemoglobin 9.5 g/dL (12.0-16.0); Mean Corpuscular Hgb Conc 31.8 g/dL (32-36); Mean Platelet Volume 9.6 fL (7.4-10.4); Platelet Count 145 K/uL (130-400); RDW Coefficient of Variation 19.4 % (11.5-14.5); Red Blood Count 3.36 M/uL (4.2-5.4); White Blood Count 5.21 K/uL (4.8-10.8)
[2018-08-06 07:05] LABS: BUN Creatinine Ratio 9.9 (10-20); Calcium 8.8 mg/dl (8.5-10.1); Creatinine Clr Calc Pharmacy 10.3 ml/min; Est GFR (African American) 15.8; Est GFR (Non-African American) 13.6; Potassium 4.8 mmol/L (3.5-5.1)
[2018-08-06] MEDS ORDERED: BISACODYL 10 MG SUPP PR STA (08:21)
[2018-08-06] MEDS ORDERED: guaiFENesin SUGAR FREE 100 MG/5 ML UDC PO PRN (08:21)
[2018-08-06] MEDS: OXYCODONE HCL IR 5 MG TAB (IMMEDIATE RELEASE) PO PRN ×3 (09:37→17:28)
[2018-08-06] MEDS: HydrALAZINE 10 MG TAB PO SCH ×3 (09:38→21:42)
[2018-08-06] MEDS: DOCUSATE SODIUM/SENNA 50/8.6MG TAB PO SCH (09:38)
[2018-08-06] MEDS: HEPARIN SOD 5,000 UNIT/0.5 ML VIAL SQ SCH ×2 (09:38→19:43)
[2018-08-06] MEDS: POLYETHYLENE (MIRALAX) 17 GM PACK PO SCH ×3 (09:38→19:36)
[2018-08-06] MEDS: CALCIUM 600MG + VIT D 400 IU TAB PO SCH ×2 (09:38→19:44)
[2018-08-06] MEDS: predniSONE 10 MG TABLET PO SCH (09:39)
[2018-08-06] MEDS: DICLOFENAC SOD 1% GEL 100 GM TUBE EXT SCH ×4 (09:39→19:39)
[2018-08-06] MEDS: NEBIVOLOL HCL 5 MG TAB PO SCH (09:39)
[2018-08-06] MEDS: LIDOCAINE 5% 1 PATCH TD SCH (09:40)
[2018-08-06] MEDS: EVEROLIMUS 0.5 MG PO SCH ×3 (09:40→19:40)
[2018-08-06] MEDS: ASCORBIC ACID 500 MG TAB PO SCH (09:41)
--- NOTE | 2018-08-06 10:52 | Nephrology Progress Note ---
Date of Service August 06, 2018 Assessment & Plan (1) ESRD (end stage renal disease) on dialysis: -- Volume status & electrolyte balance are acceptable. No acute indication for HD at this time -- Chronic outpatient Rx: [facility] Claudia 3hr 2K 2.5Ca F-160NR Qb 400/ Qd 800 EDW 48 kg (currently below EDW by scale, 1 L UF entered for today) -- Renal diet (2) Anemia: -- Will provide KALLIE w/ HD treatments (3) Back pain: -- Continue topical Voltaren gel -- Consider alternative therapy such as Nortriptyline -- Case discussed w/ primary service this am. Persistent pain concerning for possible PE. 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 Second transplant in 2006. Stable. No evidence of failure or rejection. -- Continue Everolimus -- Nebivolol (5) HTN (hypertension): -- Continue Hydralazine and Nebivolol -- HTN yesterday driven mostly by back pain Subjective Miss Li was seen and examined in her hospital room this morning. She repor ts that her back discomfort persists and actually worsened following her 2nd OMT. Review of Systems Constitutional: + body aches and + fatigue; no fever and no chills Musculoskeletal: + joint pain and + stiffness; no muscle weakness Physical Exam Constitutional: + frail appearing Eyes: PERRL, conjunctivae normal, anicteric sclerae Neck: trachea midline, no thyromegaly Respiratory: normal respiratory effort, lungs clear to auscultation Cardiovascular: Rate/Rhythm: regular rate and regular rhythm Gastrointestinal (Abdomen): normal bowel sounds, soft, nontender, no hepatosplenomegaly Results & Data Vital Signs (Past 12 Hours) Vital Signs Temp Pulse Resp BP Pulse Ox 08/06/18 07:23 37.0 C 70 16 158/65 H 96 08/05/18 23:00 36.8 C 75 20 156/65 H 97 Laboratory Results Laboratory Tests 08/06/18 08/06/18 06:10 06:10 WBC 5.21 Hgb 9.5 L Hct 29.9 L Plt Count 145 Sodium 135 L Potassium 4.8 Chloride 104 Carbon Dioxide 26 BUN 31 H Creatinine 3.16 H D Glucose 77 (1) Anemia Anemia type: due to chronic kidney disease (2) Back pain Back pain laterality: unspecified Back pain location: low back pain Chronicity: unspecified Sciatica presence: unspecified whether sciatica present Qualified Code(s): M54.5 - Low back pain (3) HTN (hypertension) Hypertension type: essential hypertension Qualified Code(s): I10 - Essential (primary) hypertension
[2018-08-06] MEDS: DOCUSATE SODIUM 100 MG CAP PO PRN (17:28)
[2018-08-06] MEDS: HydrALAZINE HCL 20 MG/ML VIAL IV PRN (17:29)
--- NOTE | 2018-08-06 18:04 | CT Scan Report ---
CT chest wo con CLINICAL HISTORY: 78 years-old Female presenting with b/l lower rib pain; eval fracture, other pathol ogy. TECHNIQUE: Multidetector CT imaging of the chest was performed without the use of intravenous contras t. IV contrast: None. One or more dose lowering techniques were used consistent with the principles o f ALARA (as low as reasonably achievable), including automatic exposure control, mA or kV adjustment to individual patient size, and/or use of iterative reconstruction. COMPARISON: Chest x-ray from 07/13/2018 and lumbar spine MR from 08/03/2018. CT DOSE (mGy.cm): The estimated cumulative dose is 245.86 mGycm. FINDINGS: Purchasing Analyst topogram: Unremarkable. Soft tissues: Normal thyroid and thoracic inlet. No axillary, supraclavicular, mediastinal, or hilar lymphadenopathy. Atherosclerosis of the aorta. Multichamber enlargement of the heart. Coronary artery and aortic valve calcification. Trace bilateral pleural effusions. Postsurgical changes suggested al dylon the posterior margin of the liver. Renal atrophy suggested. Lungs and airways: No pneumothorax. Central airways patent. Pulmonary arteries are not significantly enlarged relative to adjacent bronchi. No interlobular septal thickening. Minimal dependent changes l ikely atelectasis. Musculoskeletal: Compression fracture of L1, new since prior MR. IMPRESSION: 1. Trace bilateral pleural effusions with associated minimal dependent atelectasis. 2. Compression fracture of L1. 3. No evidence of a rib fracture. Electronically signed by: Maico Bhatia M.D. 08/06/2018 6:03 PM
[2018-08-06] MEDS: ATORVASTATIN 20 MG TAB PO SCH (19:42)
[2018-08-06] MEDS: FERROUS SULFATE 325 MG TAB PO SCH (19:43)
[2018-08-06] MEDS: CHOLECALCIFEROL 1,000 UNITS TAB PO SCH (19:44)
--- NOTE | 2018-08-06 20:15 | Hospitalist Progress Note ---
Date of Service August 06, 2018 Assessment & Plan (1) Back pain: acute/chronic. has been dealing with this issue off & on since May 2018. pain much worse in the last 2 weeks. meds tried without efficacy -- lidoderm; topical voltaren; tylenol; norco (5's and 10's); tramadol; baclofen. IV dilaudid and oxycodne HAVE been effective. K-pad has been ordered but none available. repeat MRIs of the t-spine and l-spine with CHRONIC compression fractures but no significant spinal or foraminal stenosis. her pain has consistently been in the paraspinal musculature on the left and sometimes on the right. I consulted Dr. Hernandez from our hospitalist team who performed osteopathic manipulation therapy of her back and this DID help her pain. She reported SIGNIFICANT relief of pain with this treatment. She has voiced she wishes to continue this. [place] Bob [place]/ [place] [facility] [place] an [place] to continue OMT. Dr. Hernandez stated she would likely need multiple visits over 3-4 weeks to get this issue fixed. She has previously been evaluated by [facility] and [facility] - nothing surgical. Seen by pain management -- not a candidate for any injection therapy due to HD status and concern for increased bleeding risk. Numerous CTs of abd/pelvis without pathology that would contribute to her symptoms. I ordered noncontrast chest CT today to exclude intra-thoracic pathology, rib Fx's, etc that could be contributing to her pain - no rib fractures, pneumonia, etc. DOUBT PEs (no pleuritic CP, no dyspnea, etc). cont PT, OT. I obtained other labs yesterday to ensure no other process was present contributing to her symptoms - b12, vitamin D, CPK, sed rate, etc -- all normal or negative Cont oxycodone prn Cont prednisone another 3-4 days then stop hopefully home tomorrow (2) Lumbar compression fracture: Multiple osteoporotic fractures - old/chronic on MRIs obtained several days ago. VERY POOR pain control despite multiple attempts at various meds. See above in "back pain" (3) Abdominal pain: has had 3 CTs of the abd/pelvis since the winter w/o underlying pathology. 2 small hernias present but no obstruction. has had constipation and remains on bowel regimen for such. GI referral after d/c if pain persists? some of this could be thoracic nerve root irritation as well but less certain (4) Constipation: Cont senna. Cont miralax BID. Improved. (5) UTI (urinary tract infection): completed 3 days of rocephin. resolved clinically. (6) ESRD (end stage renal disease) on dialysis: appreciate nephrology consult, recommendations, and management of HD. Schedule - M/W/F (7) Hx of liver transplant: 2005 Cont everolimus BID as previous. Dr. Monreal spoke w/ her transplant team last week. No contraindication from transplant team's perspective for epidural injections, steroids, etc LFTs remain stable (8) HTN (hypertension): increase hydralazine to 20mg BID cont nebivolol adjust meds as needed pain likely contributing to BP spikes anxiety as well (9) DVT prophylaxis: heparin BID updated the pt's daughter in law by phone 08/04 20 min conversation held with pt's son and daughter in law by phone 08/[address] chest results discussed efforts over the last 7+ days to help their mother's pain I discussed that the most effective treatment date was the OMT performed by Dr Hernandez; thus, we are recommending ongoing OMT by DR Wise post-discharge we went over disposition - discussed denials by [facility] for rehab and denial by [facility] since she is walking unassisted in hallway, performing ADLs independently (albeit with pain but nontheless independently), etc. discussed option of personal alf - neither seemed interested, and patient herself did not want to pursue this I recommended home tomorrow following HD son seemed frustrated with "conflicting" diagnoses/etiologies for her pain (compression Fx's, nerve pain, muscle pain) explained that compression fractures - since they were acute earlier this winter - are probably still in healing/resolution phase also explained that much of her pain is in the musculature at this time told them no evidence on multiple imaging studies of nerve entrapment (MRIs spine w/o spinal or foraminal stenosis) dispo - home tomorrow?? Subjective lengthy discussion held with patient at bedside today. she continues to be very anxious - almost to the point of tears - talking about her fears of riding the [place] van that [place] from her home in [place] to HD in [place]. She then complaints about having to "sit in the chair at dialysis for 3 hours" and asking "how can I do that?" we had a candid discussion about her disposition. I told her [facility] will not accept her since she is doing well with PT, OT. I also told her that [facility] will not accept her either. We discussed the idea of a personal alf which she adamantly refuses. she says "I'd rather go home and spend the money on finding a good taxi cab" (which would take her to dialysis). she said at least twice "I'm going to get home and I will have the pain and will come back to the hospital". she said with confidence today that the most effective treatment for her back during this stay has been oxycodone and the OMT performed by Dr. Hernandez. most of her pain today is left paraspinal region, right flank, and under the ribs b/l. no pleuritic pain. no dyspnea. no cough. c/o constipation. Review of Systems Constitutional: no fever Respiratory: no cough, no dyspnea and no dyspnea on exertion Cardiovascular: as per Subjective / HPI; no chest pain, no orthopnea, no paroxysmal nocturnal dyspnea and no edema Gastrointestinal: + constipation; no abdominal pain, no nausea, no vomiting and no diarrhea/loose stools Physical Exam Constitutional: + thin; no acute distress and not ill appearing very very anxious; holding her head during the visit but denies headache ENMT: external ear and nose normal, oropharynx normal Respiratory: normal respiratory effort, lungs clear to auscultation Cardiovascular: Rate/Rhythm: regular rate and regular rhythm Heart Sounds: normal S1, normal S2 and + murmur (1/6 LSB) Vessels: posterior tibial pulses present and dorsalis pedis pulses present; no JVD Gastrointestinal (Abdomen): normal bowel sounds, soft, nontender, no he patosplenomegaly Inspection/Auscultation: abdomen not distended Percussion/Palpation: + hernia (right side of abdomen - reducible; midline -also reducible) Musculoskeletal: significant myalgia pain with very light palpation of paraspinal musculature b/l, a little worse on the left; she is very tender to touch over the b/l flanks with minimal palpation; scant tenderness over spinous processes from lower t-spine to l-spine; negative straight leg test b/l; strength 5/5 x 4 exts Psychiatric: A+Ox3, euthymic affect Results & Data Vital Signs (Past 12 Hours) Vital Signs Temp Pulse Pulse Resp BP Pulse Ox 08/06/18 19:38 71 171/69 H 08/06/18 15:26 36.5 C 76 20 187/81 H 93 08/06/18 15:10 36.5 C 76 20 187/81 H 93 Laboratory Results Laboratory Results - last 24 hr 08/06/18 08/06/18 06:10 06:10 WBC 5.21 RBC 3.36 L Hgb 9.5 L Hct 29.9 L MCV 89.0 MCH 28.3 MCHC 31.8 L RDW Std Deviation 63.0 H RDW Coeff of Darci 19.4 H Plt Count 145 MPV 9.6 Sodium 135 L Potassium 4.8 Chloride 104 Carbon Dioxide 26 Anion Gap 5.0 BUN 31 H Creatinine 3.16 H D Est Cr Clr Drug Dosing 10.3 Est GFR ( Amer) 15.8 Est GFR (Non-Af Amer) 13.6 BUN/Creatinine Ratio 9.9 L Glucose 77 Calcium 8.8 (1) UTI (urinary tract infection) Hematuria presence: without hematuria Urinary tract infection type: acute cystitis Qualified Code(s): N30.00 - Acute cystitis without hematuria (2) Back pain Back pain laterality: unspecified Back pain location: low back pain Chronicity: unspecified Sciatica presence: unspecified whether sciatica present Qualified Code(s): M54.5 - Low back pain (3) Lumbar compression fracture Encounter type: subsequent encounter Fracture healing: with routine healing Fracture type: closed Lumbar vertebra fracture level: L3 Qualified Code(s): S32.030D - Wedge compression fracture of third lumbar vertebra, subsequent encounter for fracture with routine healing (4) Abdominal pain Abdominal location: generalized Qualified Code(s): R10.84 - Generalized abdominal pain (5) HTN (hypertension) Hypertension type: essential hypertension Qualified Code(s): I10 - Essential (primary) hypertension (6) Constipation Constipation type: unspecified constipation type Qualified Code(s): K59.00 - Constipation, unspecified
[2018-08-07] MEDS ORDERED: EPOETIN ALFA 4,000 UNIT/ML VIAL IV ONE (07:00)
[2018-08-07] MEDS ORDERED: SODIUM CHLORIDE 0.9% 1000ML 1,000 ML IV PRN (07:00)
[2018-08-07] MEDS ORDERED: HEPARIN SOD (PORCINE) 1000 UNIT/ML 10 ML VIAL IV SCH (07:00)
[2018-08-07] MEDS ORDERED: HEPARIN SOD (PORCINE) 1000 UNIT/ML 10 ML VIAL IV ONE (07:00)
[2018-08-07] MEDS: LIDOCAINE 5% 1 PATCH TD SCH (08:04)
[2018-08-07] MEDS: DICLOFENAC SOD 1% GEL 100 GM TUBE EXT SCH ×3 (08:05→16:04)
[2018-08-07] MEDS: OXYCODONE HCL IR 5 MG TAB (IMMEDIATE RELEASE) PO PRN ×3 (08:09→16:05)
[2018-08-07] MEDS: EVEROLIMUS 0.5 MG PO SCH (08:10)
[2018-08-07] MEDS: ASCORBIC ACID 500 MG TAB PO SCH (08:11)
[2018-08-07] MEDS: CALCIUM 600MG + VIT D 400 IU TAB PO SCH (08:11)
[2018-08-07] MEDS: predniSONE 10 MG TABLET PO SCH (08:12)
[2018-08-07] MEDS: DOCUSATE SODIUM/SENNA 50/8.6MG TAB PO SCH (08:12)
[2018-08-07] MEDS: HEPARIN SOD 5,000 UNIT/0.5 ML VIAL SQ SCH (08:15)
--- NOTE | 2018-08-07 10:53 | Nephrology Progress Note ---
Date of Service August 07, 2018 Assessment & Plan (1) ESRD (end stage renal disease) on dialysis: -- Will provide HD today. Orders have been entered into the EMR and HD RN notified -- Chronic outpatient Rx: MWF [facility] Claudia 3hr 2K 2.5Ca F-160NR Qb 400/ Qd 800 EDW 48 kg (currently below EDW by scale, 1 L UF entered for today) -- Renal diet (2) Anemia: -- Will provide KALLIE w/ HD treatments (3) Back pain: -- Continue topical Voltaren gel -- Consider alternative therapy such as Nortriptyline -- Orthopedic surgery recommended back brace for support. 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 Second transplant in 2006. Stable. No evidence of failure or rejection. -- Continue Everolimus -- Nebivolol (5) HTN (hypertension): -- Continue Hydralazine and Nebivolol -- HTN yesterday driven mostly by back pain Subjective Ms Li was seen & examined prior to HD this morning. She reports mild improvement in her back discomfort following OMT but notes that she still needs "pain medications". She expressed anxiety about returning home and having to travel to and from [facility]. She has not been wearing the back brace Review of Systems Constitutional: + fatigue; no fever Respiratory: no dyspnea Cardiovascular: no chest pain at rest and no dyspnea Gastrointestinal: no abdominal pain and no diarrhea/loose stools Musculoskeletal: + back pain Physical Exam Constitutional: + frail appearing Eyes: PERRL, conjunctivae normal, anicteric sclerae Neck: trachea midline, no thyromegaly Respiratory: normal respiratory effort, lungs clear to auscultation Cardiovascular: Rate/Rhythm: regular rate and regular rhythm Gastrointestinal (Abdomen): normal bowel sounds, soft, nontender, no hep atosplenomegaly Results & Data Vital Signs (Past 12 Hours) Vital Signs Temp Pulse Pulse Resp BP BP Pulse Ox 08/07/18 10:40 61 167/73 H 08/07/18 10:20 61 164/69 H 08/07/18 10:00 63 161/71 H 08/07/18 09:40 67 174/77 H 08/07/18 09:20 69 188/89 H 04/24/19 09:13 36.9 C 69 686 H 180/78 H 08/07/18 07:19 36.7 C 68 18 156/66 H 93 08/06/18 23:34 36.9 C 70 18 134/49 L 94 (1) Anemia Anemia type: due to chronic kidney disease (2) Back pain Back pain laterality: unspecified Back pain location: low back pain Chronicity: unspecified Sciatica presence: unspecified whether sciatica present Qualified Code(s): M54.5 - Low back pain (3) HTN (hypertension) Hypertension type: essential hypertension Qualified Code(s): I10 - Essential (primary) hypertension
[2018-08-07] MEDS: HydrALAZINE 10 MG TAB PO SCH (12:48)
[2018-08-07] MEDS: NEBIVOLOL HCL 5 MG TAB PO SCH (12:48)
[2018-08-07] MEDS: POLYETHYLENE (MIRALAX) 17 GM PACK PO SCH (12:48)
--- NOTE | 2018-08-07 16:32 | Discharge Summary ---
Date of Service August 07, 2018 Admission HPI Per Admitting Provider Diane Li is a 78yo H female with history of ESRD on HD, HTN, HLP, s/p orthotopic liver transplant x 2, multiple lumbar compression fractures presenting with severe low back pain and constipation. Patient was admitted to the hospital 06/03/18 - 06/06/18 with complaint of severe lower back pain. She was found to have compression fractures at L4 and L5 (acute vs subacute). She was evaluated by Ortho-spine on 06/04 and was planned to pursue conservative management. She was started on Naproxen which improved her pain. She was discharged to [facility] for rehabilitation. Patient returned to the ER with back pain and was admitted from 07/13/18 - 07/16/18. At that time she was found to have new L3 compression fracture. Patient was continued on conservative therapy and discharged to [facility] rehab. She was to followup with Ortho-spine after rehab to discuss possible kyphoplasty as an outpatient. She returns to the ER today with severe back pain and constipation. She is very frustrated that she continues to have the pain and that it has never really improved. Pain today is in lower back and her bilateral flanks. Pain is 9/10, worse with movement. Patient also complaining of constipation, no BM x 3 days. Patient states that she is not using Tylenol, Lidoderm, Naproxen or Oxycodone at home. She is only taking the Tramadol. She is able to ambulate with pain. No numbness/weakness. No bowel or bladder incontinence or saddle anesthesia. Patient denies fevers/chills/trauma/falls. She presents with her son who says he will not take her home while she is having this pain. CT Lumbar spine obt ained which shows diffuse osteoporosis, mild compression deformity at L3, subacute deformities of L4 and L5 also unchanged. No new lesions. K=6.4. No EKG changes. Patient receives HD q M/W/F. EKG without changes. Patient still makes some urine. ER Course: Bumex 2mg IV, D50/Insulin 10u, Morphine 4mg, Fentanyl 12.5mcg, Kayexelate 30gm Principal Diagnosis Vertebral compression fractures, intractable lower back pain Discharge Exam Constitutional + thin; no acute distress Eyes PERRL, conjunctivae normal, anicteric sclerae ENMT external ear and nose normal, oropharynx normal Neck trachea midline, no thyromegaly Respiratory normal respiratory effort, lungs clear to auscultation Cardiovascular Rate/Rhythm: regular rate and regular rhythm Heart Sounds: + murmur (2/6 at the left sternal border) Extremities: + AV fistula (Left upper extremity); no edema Gastrointestinal (Abdomen) normal bowel sounds, soft, nontender, no hepatosplenomegaly Inspection/Auscultation: abdomen normal to inspection; abdomen not distended Percussion/Palpation: abdomen soft Musculoskeletal Spine: lumbar spine normal to inspection and + paraspinal tenderness (exquisite pain with brushing my fingertips against her right paraspinous muscles ) Extremities: + extremities abnormal to inspection (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), no cyanosis and no clubbing Skin no rashes, warm and dry Neurologic moves all extremities and awake; no focal motor deficits Psychiatric Orientation: alert and oriented x 3 Affect: + labile affect Discharge Data Allergies Allergy/AdvReac Type Severity Reaction Status Date / Time No Known Allergies Allergy Unverified 07/28/18 19:47 Consultations Nephrology Orthopedic spine surgery Pain management Ordered Studies 07/28/18 19:16 CT abd pelvis wo con Stat 07/28/18 19:18 CT lumbar spine wo con Stat 08/03/18 15:31 MR lumbar spine wo con Routine MR thoracic spine wo con Routine 08/06/18 17:15 CT chest wo con Routine KUB x-ray Hospital Course (1) Back pain: acute/chronic. has been dealing with this issue off & on since May 2018. pain much worse in the last 2 weeks. Secondary to multiple vertebral compression fractures meds tried without efficacy -- lidoderm; topical voltaren; tylenol; norco (5's and 10's); tramadol; baclofen. IV dilaudid and oxycodone HAVE been effective. K-pad has been ordered but none available. repeat MRIs of the t-spine and l-spine with CHRONIC compression fractures but no significant spinal or foraminal stenosis. Chest CT performed which is negative for rib fractures, but does show a mild and new L1 compression fracture Her pain has consistently been in the paraspinal musculature on the left and sometimes on the right. I consulted Dr. Hernandez from our hospitalist team who performed osteopathic manipulation therapy of her back and this DID help her pain. She reported SIGNIFICANT relief of pain with this treatment. She has voiced she wishes to continue this. Dr. Bob Wise w/ the [facility] could see her as an outpatient to continue OMT. Our nurse navigator is making her an appointment for this after discharge Dr. Hernandez stated she would likely need multiple visits over 3-4 weeks to get this issue fixed. She has previously been evaluated by Ana Anthony and Cindy - nothing surgical. Seen by pain management -- not a candidate for any injection therapy due to HD status and concern for increased bleeding risk, as well as being on immunosuppressive medication for her history of liver transplant. Numerous CTs of abd/pelvis without pathology that would contribute to her symptoms. Her chest CT was also negative for pneumonia, pneumothorax. She has no evidence of dyspnea or pleuritic chest pain to suggest pulmonary embolism. Her pain is all in the paraspinous muscular region of the lower back. She was evaluated by physical and occupational therapy and did very well with them despite her thinking that she did not do well. She did not qualify for either longterm facility or a rehab facility based on how well she did in her therapy evaluations. Other labs were obtained to ensure no other process was present contributing to her symptoms - b12, vitamin D, CPK, sed rate, etc -- all normal or negative Cont oxycodone 5-10 mg as needed every 6 hours prn-she has been hesitant to take this pain medicine as she does not want to cause constipation again-encouraged her to take the MiraLAX at least daily if not twice daily. Cont prednisone taper down another 4 days then stop I suspect a large part of her pain may be exacerbated by anxiety issues. Would recommend close follow-up with PCP and possible referral to psychiatry or psychology as an outpatient. (2) Lumbar compression fracture: Multiple osteoporotic fractures -subacute/chronic on MRIs obtained this admission, L3, L4, L5 L1 new compression fracture seen on CT of the chest on 08/06 Pain control as above (3) Abdominal pain: has had 3 CTs of the abd/pelvis since the winter w/o underlying pathology. 2 small hernias present but no obstruction. has had constipation and remains on bowel regimen for such. some of this could be thoracic nerve root irritation as well but less certain -Continue bowel regimen (4) Constipation: Likely secondary to opioid use Improved Continue docusate twice daily Cont miralax (5) UTI (urinary tract infection): completed 3 days of rocephin. resolved clinically. (6) ESRD (end stage renal disease) on dialysis: appreciate nephrology consult, recommendations, and management of HD. Schedule - // (7) Hx of liver transplant: 2005 Cont everolimus BID as previous. I spoke w/ her transplant team last week. No contraindication from transplant team's perspective for epidural injections, steroids, opioid medications, Tylenol use, etc LFTs remain stable (8) HTN (hypertension): Blood pressures were uncontrolled here and may have been secondary to anxiety or pain -Increased hydralazine to 20mg BID had improved control -Cont nebivolol (9) DVT prophylaxis: heparin BID was provided Disposition - denials by [facility] for rehab and denial by [facility] since she is walking unassisted in hallway, performing ADLs independently (albeit with pain but nonetheless independently), etc. discussed option of personal fci - neither family nor the patient seemed interested Discussed with the patient the possibility of getting a paid lifter/driver or a taxi ride to dialysis that she can sit in the passenger front side of the car (as she states that that the only way she does not have pain when she is being transported) and she declines this. She states "if I have too much pain, I would just skip dialysis." I encouraged her to not skip dialysis, and that that would be detrimental to her health. However, it is her choice to skip dialysis if she feels like it. I encouraged her to work out getting rides to dialysis rather than public transportation with her family after discharge. Patient is medically stable for discharge to home today Total Time Total Time Spent Total Time Spent (In Minutes): Greater than 30 minutes Total Time Includes: Examination of the Patient, Discharge Planning and Medication Reconciliation Discharge Plan Discharge Items Patient Disposition: Home - Home Health Services Reason For Visit: PAIN, CONSTIPATION Discharge Diagnosis: Vertebral compression fractures, musculoskeletal back pain, constipation Condition: Fair Discharge Goals: Decrease discomfort, Diagnostic testing, Improve disease control, Improve function, Increase independence and Learn about illness Activity: As commented below Lifting: None Bathing: No limitations Exercise/Sports: As tolerated Non-emergency contact: Primary Care Provider Call non-emergency contact if: you have any medication questions, your symptoms worsen, your pain is not controlled, your pain is worsening, your pain is unusual for you and your pain is concerning for you Follow-up/Referrals: Bob Wise, [Physician] - 08/29/18 10:20 am (Please, follow up with Dr. Bob Wise for osteopathic manipulative therapy on August 29 at 10:20 am. *The office is located at [facility] in [place]. This is across the road from Home [facility]. If you need to change or cancel this appointment, call the office at [phone].) Lucius Stern MD [Primary Care Provider] - 08/15/18 11:05 am (Please, follow up with your new primary care provider, Dr. Lucius Stern, on SundayAugust 15 at 11:05 am. *This office is located at [address] [place] [address] in [place]. If you need to change this appointment, call the office at [phone].) Diet: Dialysis Renal Addtl Provider Instructions: You were admitted for pain control for lumbar compression fractures of the spine with muscle spasm in the lower back, as well as for constipation causing abdominal pain. You were evaluated by the orthopedic spine surgeon as well as the house painting instructor and are not a candidate for any kind of procedure to improve your pain due to your history of liver transplant and being on dialysis. You were treated with oxycodone and tried on various muscle relaxers, as well as lidocaine patches and topical Voltaren gel with some relief. You also had osteopathic manipulation therapy which did help you. Please continue with the osteopathic manipulation therapy as scheduled for you with Dr. Wise. Please follow-up with your new primary care physician as scheduled in the near future. Prescriptions: New diclofenac sodium [Voltaren] 1 % Gel 1 % EXT QID PRN (Reason: pain) Qty: 100 RF: 0 docusate sodium 100 mg Capsule 100 mg PO BID Qty: 60 RF: 0 polyethylene glycol 3350 [Miralax] 17 gram Powder In Packet 17 g PO BID Qty: 30 RF: 0 prednisone 10 mg Tablet 20 mg PO QAM Qty: 6 RF: 0 Continued multivitamin Tablet 1 tab PO QAM RF: 0 atorvastatin 20 mg Tablet 20 mg PO HS RF: 0 ferrous sulfate 325 mg (65 mg iron) Tablet 325 mg PO HS RF: 0 calcium carbonate-vitamin D3 [Calcium 500 + D] 500 mg(1,250mg) -200 unit Tablet 1 tab PO BID RF: 0 nebivolol 10 mg tablet 10 mg PO QAM RF: 0 cholecalciferol (vitamin D3) [Vitamin D3] 2,000 unit Tablet 2,000 unit PO HS RF: 0 everolimus (immunosuppressive) 0.5 mg tablet 2 mg PO BID RF: 0 ascorbic acid (vitamin C) [Vitamin C] 1,000 mg Tablet 1,000 mg PO QDL RF: 0 sennosides-docusate sodium [Senna with Docusate Sodium] 8.6-50 mg Tablet 2 tab PO QAM Qty: 60 RF: 0 acetaminophen [Pain Reliever] 500 mg Tablet 500 mg PO Q4H PRN (Reason: pain) Qty: 60 RF: 0 lidocaine 5 % Adhesive Patch,Medicated 1 patch transdermal QAM Qty: 30 RF: 0 Changed hydralazine 10 mg tablet 20 mg PO BID Qty: 120 RF: 0 oxycodone 5 mg Tablet 5 - 10 mg PO Q6 PRN (Reason: pain) Qty: 30 RF: 0 Discontinued naproxen 250 mg Tablet 250 mg PO BID Qty: 1 RF: 0 tramadol 50 mg Tablet 50 mg PO Q4H PRN (Reason: pain) Qty: 60 RF: 0 Stand-Alone Forms: [facility] Discharge Orders: Discharge Order (Routine); Ordered 08/07/18 Ordered By: Madeleine Monreal Admission Data Admit Date/Time: 07/29/18 13:59 Attending Provider: Madeleine Monreal Admit Provider: Breanna Echevarria Primary Care Provider: Lucius Stern Other Providers: Breanna Echevarria ; Dianna Newby ; Diana Dobbs ; Aly White ; Home,Nursing Agency Service: Medical Other Pending Studies at Discharge: No
== END 2018-08-07 18:28 | disposition home health service (06) | DRG 542 ==
LOC: ED 18:29 → 2N 18:29 → SUATTDRO 23:08 → 2N 23:51 → SUATTDRO 07-29 13:59 → 4W 08-02 00:37 → 4E 08-02 00:53

== ENCOUNTER 2018-08-19 19:27 | Observation (INO) ==
--- OUTSIDE RECORDS SUMMARY | 2018-08-19 19:29 | External Medical Summary | Continuity of Care Document ---
:1940 Author Name Kae Bai, Provider Address Unavailable Unavailable , Care Team Providers Name Role Phone NonMRACHELG Richardson, Provider Unavailable [email or web address] PCP, UNKNOWN Unavailable Unavailable Problems Active medical history not documented Allergies and Adverse Reactions Allergy history not documented Medications Medications not documented Procedures Procedures not documented Immunizations Immunizations not documented Plan of Treatment Planned Observations Planned Goals not documented Results CBC With DIFF (Pending) Laboratory: [facility] [place] Laboratory [address] [facility] [address] tel: 29-Jul-2018 6:08 WBC 7.83 K/uL Range: 4.8-10.8 K/u L RBC 3.46 {M/uL} (below low Range: 4.2-5 .4 M/uL threshold) HEMOGLOBIN 9.8 g/dL (below low Range: 1 2.0-16.0 g/dL threshold) HEMATOCRIT 30.7 % (below low Range: 37- 47 % threshold) MCV 88.7 fL Range: 80-100 fL MCH 28.3 pg Range: 25-34 pg MEAN CORPUSCULAR HGB CONC 31.9 Range: 3 2-36 g/dL g/dL (below low threshold) RED CELL DISTRIBUTION WIDTH SD Range: 3 6.4-46.3 fL 58.8 fL (above high threshold) RED CELL DISTRIBUTION WIDTH CV Range: 1 1.5-14.5 % 18.5 % (above high threshold) PLATELET COUNT 138 K/uL Range: 130-400 K/uL MEAN PLATELET VOLUME 9.8 fL Range: 7.4- 10.4 fL NEUT % 80.7 % Range: % LYMPH % 11.0 % Range: % MONO % 7.2 % Range: % EOS % 0.6 % Range: % BASO % 0.1 % Range: % IG% 0.4 % Range: % Comments: IG paramet er reflects the combination of Metas, Myelos andPromyelocytes. Neutrophils (Auto) 6.32 K/uL Range: 1. 4-6.5 K/uL LYMPH ABS # 0.86 K/uL (below low Range: 1.2-3.4 K/uL threshold) MONO ABS # 0.56 K/uL Range: 0.11-0.59 K /uL EOS ABS # 0.05 K/uL Range: 0-0.5 K/uL BASO ABS # 0.01 K/uL Range: 0-0.2 K/uL IG# 0.03 K/uL (above high Range: 0.00-0 .02 K/uL threshold) Basic Metabolic Panel Laboratory: [facility] [address] [place] [address] tel: 29-Jul-2018 6:08 SODIUM 136 mmol/L Range: 136-145 mmol /L POTASSIUM 6.1 mmol/L (Critical Range: 3 .5-5.1 mmol/L High) Comments: Critical r esult called to augusta Barlow 07/29/18 at 0718 by Teresa smith were verbalized back. CHLORIDE 105 mmol/L Range: 98-107 mmol/ L CARBON DIOXIDE 28 mmol/L Range: 21-32 m mol/L ANION GAP 3.0 Range: 3-11 BLOOD UREA NITROGEN 51 mg/dl Range: 7-1 8 mg/dl (above high threshold) CREATININE 5.31 mg/dl (Critical Range: 0.6-1.2 mg/dl High) Comments: Critical r esult called to Augusta Barlow 07/29/18 at 0720 by Teresa smith were verbalized back. Estimated Creatinine Clearance 6.1 Range : ml/min ml/min Comments: Est. Creat inine Clearance (Mod Cockcroft-Gault) for pharmacydosing purposes. Estimated GFR () Comment s: Units: ml/min per 8.4 1.73 meters squaredT he estimated GFR (CKD-E PI equation) has not be en validatedfor inpatie nt settings and may not be an accurate reflectiono f renal function in critical ly ill patients or those withrapidly changing renal function (e.g. DEVEN). Estimated GFR (Non- Comments: Uni ts: ml/min per [place]) 7.3 1.73 meters squaredT he estimated GFR (CKD-E PI equation) has not be en validatedfor inpatie nt settings and may not be an accurate reflectiono f renal function in critical ly ill patients or those withrapidly changing renal function (e.g. DEVEN). BUN/CREATININE RATIO 9.7 (below Range: 10-20 low threshold) GLUCOSE 113 mg/dl (above high Range: 70 -99 mg/dl threshold) CALCIUM 9.5 mg/dl Range: 8.5-10.1 mg/ dl Magnesium (Pending) Laboratory: [facility] [place] Laboratory [address] [facility] [address] tel: 29-Jul-2018 6:08 MAGNESIUM 2.9 mg/dl (above high Range: 1.8-2.4 mg/dl threshold) PT/INR (Pending) Laboratory: [facility] [facility] [address] Commen ts: Comment Note: emilio Morel [facility] obtain fro m previously drawn [id number] tel: blood if OK 29-Jul-2018 7:27 Prothrombin Time 11.4 {Seconds} Range: 9.0-12.0 Seconds INR 1.1 Range: 0.9-1.1 PTT (Pending) Laboratory: [facility] [place] [facility] [address] Commen ts: Comment Note: emilio Morel [facility] obtain fro m previously drawn [id number] tel: blood if OK 29-Jul-2018 7:27 PTT PATIENT 25.3 {Seconds} Range: 21.0- 31.0 Seconds Comments: Therapeuti c APTT range is 46.0 - 66.4 seconds PARTIAL THROMBOPLASTIN RATIO 0.9 MRSA DNA (Nasal Swab) Laboratory: [facility] [place] [facility] [address] ([address]ending) [address] [facility] [address] tel: 29-Jul-2018 6:40 MRSA DNA (Nasal Swab) Negative Range: N egative
[2018-08-19] MEDS ORDERED: DiphenhydrAMINE 12.5 MG in SYRINGE 0 ML IV STA (20:18)
[2018-08-19] MEDS ORDERED: ALBUT/IPRATROP 3MG/0.5MG NEB 3 ML VIAL NEB STA ×2 (20:18→22:38)
--- NOTE | 2018-08-19 20:27 | XRay Report ---
XR chest 1V portable HISTORY: 78 years-old Female SOB acute shortness of breath with acute generalized abdominal pain COMPARISON: Chest CT 08/06/2018, chest radiograph 07/13/2018 TECHNIQUE: Portable AP view of the chest FINDINGS: Cardiac silhouette is enlarged, unchanged. Calcification of the thoracic aortic arch. There is no pne umothorax. Trace pleural effusions persist. No overt pulmonary edema or lobar airspace consolidation. Surgical clips project over the left axillary distribution. Degenerative changes of the shoulders an d spine. IMPRESSION: 1. Cardiomegaly without overt pulmonary edema. 2. Unchanged trace pleural effusions. The above report was generated using voice recognition software. It may contain grammatical, syntax o r spelling errors. Electronically signed by: Mikey Mongtomery M.D. 08/19/2018 8:26 PM
[2018-08-19] MEDS ORDERED: DiphenhydrAMINE HCL 50 MG/ML VIAL ONE (20:39)
[2018-08-19 20:49] LABS: Basophils # (auto) 0.02 K/uL (0-0.2); Basophils % (auto) 0.5 %; Eosinophils # (auto) 0.09 K/uL (0-0.5); Eosinophils % (auto) 2.1 %; Hematocrit (blood only) 36.8 % (37-47); Hemoglobin 11.6 g/dL (12.0-16.0); Immature Granulocytes # (auto) 0.01 K/uL (0.00-0.02); Immature Granulocytes % (auto) 0.2 %; Lymphocytes # (auto) 1.09 K/uL (1.2-3.4); Lymphocytes % (auto) 25.3 %; Mean Corpuscular Hgb Conc 31.5 g/dL (32-36); Mean Platelet Volume 9.9 fL (7.4-10.4); Monocytes # (auto) 0.58 K/uL (0.11-0.59); Monocytes % (auto) 13.5 %; Neutrophils # (auto) 2.51 K/uL (1.4-6.5); Neutrophils % (auto) 58.4 %; Platelet Count 136 K/uL (130-400); RDW Coefficient of Variation 18.3 % (11.5-14.5); RDW Standard Deviation 58.8 fL (36.4-46.3); Red Blood Count 4.18 M/uL (4.2-5.4)
[2018-08-19 21:17] LABS: Alanine Aminotransferase 25 U/L (12-78); Albumin Level 2.9 gm/dl (3.4-5.0); Aspartate Aminotransferase 42 U/L (15-37); BUN Creatinine Ratio 6.7 (10-20); Blood Urea Nitrogen 22 mg/dl (7-18); Calcium 8.9 mg/dl (8.5-10.1); Carbon Dioxide 31 mmol/L (21-32); Chloride 98 mmol/L (98-107); Creatinine Clr Calc Pharmacy 9.5 ml/min; Est GFR (African American) 15.2; Est GFR (Non-African American) 13.1; Glucose 107 mg/dl (70-99); Sodium 135 mmol/L (136-145)
[2018-08-19 21:23] LABS: Albumin Globulin Ratio 0.6 (0.9-2); Alkaline Phosphatase 164 U/L (45-117); Bilirubin,Total 0.4 mg/dl (0.2-1); Globulin 4.8 gm/dl (2.5-4.0); Total Protein 7.7 gm/dl (6.4-8.2); Troponin I < 0.015 ng/ml (0-0.045)
--- NOTE | 2018-08-19 21:38 | CT Scan Report ---
ABDOMEN AND PELVIS CT WITHOUT CONTRAST CT DOSE: 266.29 mGy.cm HISTORY: Acute generalized abdominal pain abd pain TECHNIQUE: Multiaxial CT images of the abdomen and pelvis were performed without contrast. A dose lo wering technique was utilized adhering to the principles of ALARA. COMPARISON STUDY: CT abdomen and pelvis 07/28/2018, MRI lumbar spine 08/03/2017 FINDINGS: Trace pleural effusions with subsegmental bibasilar atelectasis. No pneumatosis or pneumoperitoneum. Imaged inferior cardiac chambers are enlarged with trace pericardial effusion and coronary arterial c alcifications noted. Extensive vascular calcifications are noted throughout the abdomen and pelvis. Indeterminate calcific ations are again noted in the region of the suprahepatic IVC. Liver is otherwise unremarkable. The sp fany, pancreas and adrenal glands appear unremarkable. Mildly atrophic appearance of the kidneys with associated cortical thinning. No renal or ureteral calculi or obstructive uropathy identified. Mild wall thickening of the bladder. Adnexa are unremarkable. There is mild prominence of the endometrium measuring approximately 9 mm. There is no aortic aneurysm or adenopathy identified. There is no small bowel obstruction. Moderate volume of formed stool is noted throughout the colon. H yperdense material is noted within the appendix suggestive of retained enteric contrast or appendicol ith. No CT evidence of acute appendicitis. Prior partial small bowel resection within the abdominal r ight lower quadrant. No evidence of associated bowel wall thickening. No ascites or mesenteric inflam mation identified. There are multiple ventral abdominal wall hernias noted along with diastases recti . Right lateral abdominal wall hernia with diastases of 3.0 cm contains nonobstructed loops of small bowel. Suprapubic ventral abdominal wall hernia contains additional nonobstructive loops of small bow el. There is mild generalized body wall edema. Demineralized appearance of the bones. Degenerative ch anges of the spine, pelvis and hips. Healed remote fracture of the right inferior pubic ramus. Multip le lumbar spine compression deformities redemonstrated, unchanged at L3, L4 and L5. 30% anterior endp late compression deformity of L1 with 6 mm retropulsion about the superior aspect of the posterior en dplate is new from prior study which results in mild central canal stenosis. Compression fracture at L2 demonstrates mild progressive sclerosis of the inferior endplate. IMPRESSION: 1. Moderate constipation without bowel obstruction or focal bowel wall thickening. 2. Diastases recti with multiple ventral abdominal wall hernias, some of which contain nonobstructed loops of small bowel. 3. Prior partial small bowel resection. 4. Mild nonspecific urinary bladder wall thickening. Correlate with urinalysis. 5. Trace pleural effusions with mild bibasilar atelectasis. 6. 30% anterior plate compression deformity at L1 with 5 mm retropulsion is compatible with an acute on chronic fracture, new from 08/03/2018. This results in mild central canal stenosis. 7. Additional findings as above. Electronically signed by: Mikey Montgomery M.D. 08/19/2018 9:36 PM
[2018-08-19] MEDS ORDERED: HYDROmorphone INJ 0.5 MG/0.5 ML SYR IV PRN (21:53)
[2018-08-19] MEDS ORDERED: ONDANSETRON INJ 2 MG/ML 2 ML VIAL IV STA (21:53)
[2018-08-19 23:12] LABS: Appearance Urine Turbid (Clear); Bacteria Urine Automated 1+ (Negative); Bilirubin Urine Negative (Negative); Blood Urine 1+ (Negative); Color Urine Yellow; Glucose Urine UA Negative (Negative); Ketones Urine Negative (Negative); Leukocyte Esterase Urine 3+ (Negative); Nitrite Urine Negative (Negative); Specific Gravity Urine 1.012 (1.000-1.030); Urobilinogen Urine Negative (Negative); WBC Urine Automated >30 /hpf (0-5); pH Urine >= 9.0 (4.5-7.5)
[2018-08-19 23:44] LABS: Protein Urine 2+ (Negative)
--- NOTE | 2018-08-19 23:46 | Emergency Department Note ---
Entered by Tomas Montes acting as a scribe for Aly Torres MD ED Provider Note CHIEF COMPLAINT: shortness of breath HISTORY OF PRESENT ILLNESS: The patient is a 78 year old female who presents to the Emergency Room with co mplaints of persistent shortness of breath today. The patient states that she feels like she her throat is full of phlegm, but she is unable to cough it up. She also reports abdominal pain and bloating. She states that her last bowel movement was three days ago, and she had also been constipated last week. She states that she ate soup today, and she denies changes in appetite or fluid intake. She notes that her entire body feels itchy. The son at bedside states that the patient has been in constant pain for a long time, most notably in the left flank. She has been evaluated for her pain in the ER several times over the past couple of months. She is on oxycodone and Colace. The son states that the patient recently moved in order to live with him to aid in her care. Pt denies LOC, headache, fevers, chills, diaphoresis, visual changes, neck pain, chest pain, nausea, vomiting, melena, hematochezia, urinary symptoms, numbness, weakness, lymphadenopathy, rash, or other complaints. REVIEW OF SYSTEMS: See HPI for pertinent positives and negatives. A total of ten systems were reviewed and were otherwise negative. PMHx/PSHx: hypertension hyperlipidemia history of liver transplant on dialysis SOCIAL HISTORY: Patient lives at home with her son. PHYSICAL EXAM: GENERAL: Awake, alert, uncomfortable and anxious-appearing, in no distress HENT: Normocephalic, atraumatic. Oropharynx unremarkable. EYES: PERRL. Normal conjunctiva. Sclera non-icteric. NECK: Inspection normal. Non-tender. Supple. No nuchal rigidity. FROM. No masses. RESPIRATORY: Clear to auscultation. No wheezes. No rales. Normal respiratory effort. CARDIAC: Normal rate. Normal rhythm. No murmurs. No rubs. Extremities warm and well perfused. Pulses equal. No JVD. GI: Distended abdomen. Left-sided tenderness to palpation. No rebound or guarding. No masses. RECTAL: Deferred. MUSCULOSKELETAL: Atraumatic. Chest examination reveals no tenderness. The back is symmetrical on inspection without obvious abnormality. There is no CVA tenderness to palpation. No joint edema. LOWER EXTREMITIES: Calves are equal size bilaterally and non-tender. No edema. No discoloration. NEURO: Normal sensorium. No sensory or motor deficits noted. SKIN: No rash or jaundice noted. EMERGENCY DEPARTMENT COURSE: 2006: Past medical records reviewed. The patient was evaluated in room C12B, and a complete history and physical examination were performed. 2225: I discussed current findings with the patient and family. 2249: I consulted Dr. Maria Eugenia Newsome Hospitalist. The patient will be reevaluated for hospitalization. MEDICAL DECISION MAKING: Prior records/ancillary studies reviewed. Patient has had several admissions for back pain and pain control. She has had 2, 3 and 4 compression fractures. Triage Nursing notes reviewed and agree them. Additional history obtained from the patient's son. The patient's history was concerning for constipation, shortness of breath, abdominal distention, back pain with a history of dialysis and liver transplantation. Differential diagnosis: Etiologies such as functional constipation, impaction, obstruction, volvulus, metabolic abnormality, infection, neurologic, electrolyte abnormality, pneumonia, CHF, cardiac sources, as well as others were entertained. Physical examination findings: As above. Airway patent. ER treatment provided: IV Benadryl DuoNeb IV Zofran IV Dilaudid On reassessment the patient felt better. Diagnostics interpreted by me: ECG: No acute ischemia. The labs revealed a mild anemia on CBC. No leukocytosis. Patient has a slight elevation of her creatinine but not significantly changed from baseline. Basim mireles also had a very subtle increase in her AST otherwise her LFTs were baseline. Troponin negative. Lipase negative. Imaging studies: Chest x-ray performed and was negative for acute disease. CT scan abdomen pelvis reveals a new L1 compression fracture. The patient also has moderate constipation. Chronic findings noted as well. The patient has a new L1 compression fracture. She did require IV narcotics for symptom control. She also complains of a lot of mucus production. She was not actively coughing. The son states this is been going on for many months. She normally does well with sitting up however she cannot position herself normally due to the new lumbar fractures. She has pain in her back. Overall the patient is not comfortable. She is not doing well at home. Further evaluation and management in the hospital. Consultation was made with internal medicine. The patient was evaluated in the ER for further treatment. Consultation: A consultation was placed with the hospitalist. The case was discussed. The patient was evaluated in the Emergency Room for further treatment. IMPRESSION: lumbar compression fracture constipation shortness of breath PLAN: evaluation by hospitalist The domenicae's documentation has been prepared under my direction and personally reviewed by me in its entirety. I confirm that the note above accurately reflects all work, treatment, procedures, and medical decision making performed by me. Impression & Plan Lumbar compression fracture, Constipation, Shortness of breath Past Med/Surg History Medical History HTN (hypertension) (Chronic) HLD (hyperlipidemia) (Chronic) Osteoporosis (Chronic) Anemia (Chronic) History of renal dialysis Hx of compression fracture of spine Surgical History S/P tubal ligation (Chronic) H/O detached retina repair (Chronic) S/P cataract extraction and insertion of intraocular lens (Chronic) 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, ?CMV Family History Other Family history non-contributory Social History Preferred Language: Czech Communication Ability: Effective Beliefs That Will Affect Care: None marital status: Single Current Living Situation: Family Current Living Situation Comment: with son current occupational status: retired Feels Safe at Home: Yes Smoking Status: Never smoker Second Hand Exposure: No Hx Alcohol Use: No Hx Substance Use: No Results & Data Vital Signs Vital Signs - 24 hr 08/19/18 19:37 08/19/18 20:56 08/19/18 21:19 Temperature 36.7 C Temperature Source Oral Sepsis Recent Fever Within 48 Hours No Sepsis New/Unexplained Change in Mental Status No Sepsis Action Taken by Nursing No Action Required Pulse Rate 79 Pulse Rate [Bilateral Apical] 78 20 L Pulse Rhythm Regular Pulse Strength Normal Respiratory Rate 17 20 18 Respiratory Effort / Characteristics Non-Labored Spontaneous Respiratory Depth Normal Respiratory Pattern Regular Blood Pressure 165/76 H Blood Pressure [Right Arm] 192/93 H 199/107 H Blood Pressure Mean 105 Blood Pressure Mean [Right Arm] 126 137 Blood Pressure Position Sitting Blood Pressure Position [Right Arm] Sitting Pulse Oximetry 98 95 96 Oxygen Delivery Method Room Air Room Air Room Air 08/19/18 21:45 08/19/18 22:27 08/19/18 22:54 Temperature Temperature Source Sepsis Recent Fever Within 48 Hours Sepsis New/Unexplained Change in Mental Status Sepsis Action Taken by Nursing Pulse Rate Pulse Rate [Bilateral Apical] 75 83 86 Pulse Rhythm Pulse Strength Respiratory Rate 20 20 20 Respiratory Effort / Characteristics Respiratory Depth Respiratory Pattern Blood Pressure Blood Pressure [Right Arm] 195/90 H 185/88 H 196/90 H Blood Pressure Mean Blood Pressure Mean [Right Arm] 125 120 125 Blood Pressure Position Blood Pressure Position [Right Arm] Pulse Oximetry 93 96 98 Oxygen Delivery Method Room Air Room Air Room Air Home Medications Current Medication List: was personally reviewed by me Laboratory Data Attestation: I reviewed the patient's lab results. Result diagrams: 08/19/18 20:29 08/19/18 20:29 Lab Results 08/19/18 08/19/18 08/19/18 Range/Units 20:29 20:29 20:29 WBC 4.30 L (4.8-10.8) K/uL RBC 4.18 L (4.2-5.4) M/uL Hgb 11.6 L (12.0-16.0) g/dL Hct 36.8 L (37-47) % MCV 88.0 (80-100) fL MCH 27.8 (25-34) pg MCHC 31.5 L (32-36) g/dL RDW Std Deviation 58.8 H (36.4-46.3) fL RDW Coeff of Darci 18.3 H (11.5-14.5) % Plt Count 136 (130-400) K/uL MPV 9.9 (7.4-10.4) fL Immature Gran % (Auto) 0.2 % Neut % (Auto) 58.4 % Lymph % (Auto) 25.3 % Sumner % (Auto) 13.5 % Eos % (Auto) 2.1 % Baso % (Auto) 0.5 % Immature Gran # (Auto) 0.01 (0.00-0.02) K/uL Neut # (Auto) 2.51 (1.4-6.5) K/uL Lymph # (Auto) 1.09 L (1.2-3.4) K/uL Sumner # (Auto) 0.58 (0.11-0.59) K/uL Eos # (Auto) 0.09 (0-0.5) K/uL Baso # (Auto) 0.02 (0-0.2) K/uL Sodium 135 L (136-145) mmol/L Potassium 5.0 (3.5-5.1) mmol/L Chloride 98 (98-107) mmol/L Carbon Dioxide 31 (21-32) mmol/L Anion Gap 6.0 (3-11) BUN 22 H (7-18) mg/dl Creatinine 3.26 H (0.6-1.2) mg/dl Est Cr Clr Drug Dosing 9.5 ml/min Est GFR ( Amer) 15.2 Est GFR (Non-Af Amer) 13.1 BUN/Creatinine Ratio 6.7 L (10-20) Glucose 107 H (70-99) mg/dl Lactate 2.0 (0.4-2.0) mmol/L Calcium 8.9 (8.5-10.1) mg/dl Total Bilirubin 0.4 (0.2-1) mg/dl AST 42 H (15-37) U/L ALT 25 (12-78) U/L Alkaline Phosphatase 164 H (45-117) U/L Troponin I < 0.015 (0-0.045) ng/ml Total Protein 7.7 (6.4-8.2) gm/dl Albumin 2.9 L (3.4-5.0) gm/dl Globulin 4.8 H (2.5-4.0) gm/dl Albumin/Globulin Ratio 0.6 L (0.9-2) Lipase 268 (73-393) U/L Specimen Hemolysis Administered Medications Hydromorphone HCl (Dilaudid) 0.5 mg IV Q15M PRN PRN Reason: Pain Stop: 09/02/18 21:52 Last Admin: 08/19/18 22:31 Dose: 0.5 mg Documented by: [id number] Discontinued Medications Albuterol (Duoneb) 3 ml NEB NOW STA Stop: 08/19/18 20:19 Last Admin: 08/19/18 20:45 Dose: 3 ml Documented by: [id number] Albuterol (Duoneb) 3 ml NEB NOW STA Stop: 08/19/18 22:39 Last Admin: 08/19/18 22:54 Dose: 3 ml Documented by: [id number] Diphenhydramine HCl (Benadryl) Confirm Administered Dose 50 mg .ROUTE .STK-MED ONE Stop: 08/19/18 20:40 Last Admin: 08/19/18 20:48 Dose: Not Given Documented by: [id number] Diphenhydramine HCl 12.5 mg/ (Syringe) 0.25 mls @ 1 mls/hr IV NOW STA Stop: 08/19/18 20:32 Last Admin: 08/19/18 20:44 Dose: 1 mls/hr Documented by: [id number] Ondansetron HCl (Zofran) 4 mg IV NOW STA Stop: 08/19/18 21:54 Last Admin: 08/19/18 22:31 Dose: 4 mg Documented by: [id number] Imaging Data Radiologist's Impression: Radiology results as stated below per my review and the radiologist's inte rpretation: ABDOMEN AND PELVIS CT WITHOUT CONTRAST CT DOSE: 266.29 mGy.cm HISTORY: Acute generalized abdominal pain abd pain TECHNIQUE: Multiaxial CT images of the abdomen and pelvis were performed without contrast. A dose lowering technique was utilized adhering to the principles of ALARA. COMPARISON STUDY: CT abdomen and pelvis 07/28/2018, MRI lumbar spine 08/03/2017 FINDINGS: Trace pleural effusions with subsegmental bibasilar atelectasis. No pneumatosis or pneumoperitoneum. Imaged inferior cardiac chambers are enlarged with trace pericardial effusion and coronary arterial calcifications noted. Extensive vascular calcifications are noted throughout the abdomen and pelvis. Indeterminate calcifications are again noted in the region of the suprahepatic IVC. Liver is otherwise unremarkable. The spleen, pancreas and adrenal glands appear unremarkable. Mildly atrophic appearance of the kidneys with associated cortical thinning. No renal or ureteral calculi or obstructive uropathy identified. Mild wall thickening of the bladder. Adnexa are unremarkable. There is mild prominence of the endometrium measuring approximately 9 mm. There is no aortic aneurysm or adenopathy identified. There is no small bowel obstruction. Moderate volume of formed stool is noted throughout the colon. Hyperdense material is noted within the appendix suggestive of retained enteric contrast or appendicolith. No CT evidence of acute appendicitis. Prior partial small bowel resection within the abdominal right lower quadrant. No evidence of associated bowel wall thickening. No ascites or mesenteric inflammation identified. There are multiple ventral abdominal wall hernias noted along with diastases recti. Right lateral abdominal wall hernia with diastases of 3.0 cm contains nonobstructed loops of small bowel. Suprapubic ventral abdominal wall hernia contains additional nonobstructive loops of small bowel. There is mild generalized body wall edema. Demineralized appearance of the bones. Degenerative changes of the spine, pelvis and hips. Healed remote fracture of the right inferior pubic ramus. Multiple lumbar spine compression deformities redemonstrated, unchanged at L3, L4 and L5. 30% anterior endplate compression deformity of L1 with 6 mm retropulsion about the superior aspect of the posterior endplate is new from prior study which results in mild central canal stenosis. Compression fracture at L2 demonstrates mild progressive sclerosis of the inferior endplate. IMPRESSION: 1. Moderate constipation without bowel obstruction or focal bowel wall thickening. 2. Diastases recti with multiple ventral abdominal wall hernias, some of which contain nonobstructed loops of small bowel. 3. Prior partial small bowel resection. 4. Mild nonspecific urinary bladder wall thickening. Correlate with urinalysis. 5. Trace pleural effusions with mild bibasilar atelectasis. 6. 30% anterior plate compression deformity at L1 with 5 mm retropulsion is compatible with an acute on chronic fracture, new from 08/03/2018. This results in mild central canal stenosis. 7. Additional findings as above. Electronically signed by: Mikey Montgomery M.D. 08/19/2018 9:36 PM XR chest 1V portable HISTORY: 78 years-old Female SOB acute shortness of breath with acute generalized abdominal pain COMPARISON: Chest CT 08/06/2018, chest radiograph 07/13/2018 TECHNIQUE: Portable AP view of the chest FINDINGS: Cardiac silhouette is enlarged, unchanged. Calcification of the thoracic aortic arch. There is no pneumothorax. Trace pleural effusions persist. No overt pulmonary edema or lobar airspace consolidation. Surgical clips project over the left axillary distribution. Degenerative changes of the shoulders and spine. IMPRESSION: 1. Cardiomegaly without overt pulmonary edema. 2. Unchanged trace pleural effusions. The above report was generated using voice recognition software. It may contain grammatical, syntax or spelling errors. Electronically signed by: Mikey Montgomery M.D. 08/19/2018 8:26 PM ECG Data Attestation: I personally reviewed and interpreted this ECG as follows: Indication: SOB/dyspnea Rate (beats per minute): 78 Rhythm: normal sinus Findings: + other (poor baseline data) and + Q waves (septal and inferior); no ST elevation Blood Pressure Blood Pressure Findings: Elevated blood pressure Blood Pressure Disposition: further management by hospitalist Discharge Plan Visit Data Chief Complaint: Abdominal Pain Stated Complaint: PAIN IN ABD. CONSTIPATED, SOB ED Provider: Aly Torres Discharge Problem: Lumbar compression fracture, Constipation, Shortness of breath Patient Disposition: Being Evaluated by Hospitalist Forms Stand Alone Forms: Call Back Authorization, [facility] Prescriptions Prescriptions: No Action multivitamin Tablet 1 tab PO QAM RF: 0 atorvastatin 20 mg Tablet 20 mg PO HS RF: 0 ferrous sulfate 325 mg (65 mg iron) Tablet 325 mg PO HS RF: 0 calcium carbonate-vitamin D3 [Calcium 500 + D] 500 mg(1,250mg) -200 unit Tablet 1 tab PO BID RF: 0 nebivolol 10 mg tablet 10 mg PO QAM RF: 0 cholecalciferol (vitamin D3) [Vitamin D3] 2,000 unit Tablet 2,000 unit PO HS RF: 0 everolimus (immunosuppressive) 0.5 mg tablet 2 mg PO BID RF: 0 ascorbic acid (vitamin C) [Vitamin C] 1,000 mg Tablet 1,000 mg PO QDL RF: 0 sennosides-docusate sodium [Senna with Docusate Sodium] 8.6-50 mg Tablet 2 tab PO QAM Qty: 60 RF: 0 lidocaine 5 % Adhesive Patch,Medicated 1 patch transdermal QAM Qty: 30 RF: 0 calcitonin (salmon) 200 unit/actuation spray,non-aerosol 1 spray intranasal UD RF: 0 polyethylene glycol 3350 [Miralax] 17 gram/dose Powder 17 g PO DAILY RF: 0 acetaminophen [Pain Reliever] 500 mg tablet 1,000 mg PO Q4H PRN (Reason: pain) RF: 0 diclofenac sodium [Voltaren] 1 % Gel 1 % EXT QID PRN (Reason: pain) Qty: 100 RF: 0 docusate sodium 100 mg Capsule 100 mg PO BID Qty: 60 RF: 0 polyethylene glycol 3350 [Miralax] 17 gram Powder In Packet 17 g PO BID Qty: 30 RF: 0 hydralazine 10 mg tablet 20 mg PO BID Qty: 120 RF: 0 oxycodone 5 mg Tablet 5 - 10 mg PO Q6 PRN (Reason: pain) Qty: 30 RF: 0 Referrals Referrals: Lucius Stern MD [Primary Care Provider] - Discharge Problem: Lumbar compression fracture Qualifiers: Encounter type: initial encounter Lumbar vertebra fracture level: L1 Fracture type: closed Qualified Code(s): S32.010A - Wedge compression fracture of first lumbar vertebra, initial encounter for closed fracture Constipation Qualifiers: Constipation type: unspecified constipation type Qualified Code(s): K59.00 - Constipation, unspecified The scribe's documentation has been prepared under my direction and personally reviewed by me in its entirety. I confirm that the note above accurately reflects all work, treatment, procedures, and medical decision making performed by me.
[2018-08-20] MEDS ORDERED: ACETAMINOPHEN 500 MG TAB PO PRN (01:47)
[2018-08-20] MEDS ORDERED: ONDANSETRON INJ 2 MG/ML 2 ML VIAL IV PRN (01:47)
[2018-08-20] MEDS ORDERED: XOPENEX/ATROVENT 1.25mg/0.5MG NEB COMBO NEB PRN (01:47)
[2018-08-20] MEDS ORDERED: ACETAMINOPHEN 325 MG TAB PO PRN (01:47)
[2018-08-20] MEDS ORDERED: DICLOFENAC SOD 1% GEL 100 GM TUBE EXT PRN (01:47)
[2018-08-20] MEDS ORDERED: LACTULOSE SYRUP 30 GM/45 ML UDP PO ONE (02:00)
--- NOTE | 2018-08-20 02:00 | History and Physical Report ---
DATE OF ADMISSION: 08/20/2018 CHIEF COMPLAINT: Abdominal pain, distention, and mucous, constipation. 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 She was admitted 3 times for same lower back pain and constipation for the compression fractures. Initially, she had a compression fracture at L4-L5 acute versus subacute in May and she was discharged to [facility] for rehabilitation. The patient returned back to ER on 07/13/2018 and stayed until 07/16/2018. By that time, she was found to have a new L3 compression fracture and again conservative therapy was recommended. Again she was in the hospital on 08/07/2018 with the same problem and also seen by spine surgery and pain management. Ortho was not interested in kyphoplasty and she was not a candidate for extensive surgeries and pain management thought she is not a candidate for a pain shot because of her comorbid conditions and being on immunosuppressants. At that time pain medication was adjusted. On CT scan, lumbar spine showed diffuse osteoporosis and she was discharged. She changed her PCP to Jerod. Again she comes back with similar back pain and she thinks her abdomen is distended and some pain in the left groin. Her last bowel movement was about 3 days ago, she is on a bowel regimen. She lives alone, her son lives next door and he helps with food and everything, but she ambulates in the home and able to go to bathroom and come back. Because of this severe pain and constipation, she came back to the ER and a CAT scan of the abdomen was done showing new L1 compression fracture now. The patient is also complaining of mucus filled in the throat and is bringing up blackish phlegm. Denies any fever, chills. No shortness of breath, no chest pain, no headache, no dizziness, no blurred vision, no earaches, no sore throat. Appetite is okay. No dysphagia. Currently, no nausea, no rash, no swelling in the legs. Hemodynamics are stable. ALLERGIES: No known drug allergies. PAST MEDICAL HISTORY: As mentioned above. PAST SURGICAL HISTORY: Liver transplant in 2005, status post tubal ligation, history of detached retina repair, history of cataract surgery. FAMILY HISTORY: Noncontributory. SOCIAL HISTORY: Currently lives alone. Son lives next door. Former smoker. No alcohol use. No substance abuse. REVIEW OF SYMPTOMS: As per HPI. Rest of the review of symptoms negative. MEDICATIONS: Currently, the patient is on Tylenol 1000 mg p.o. q. 4 hours p.r.n., ascorbic acid 1000 mg p.o. daily, atorvastatin 20 mg p.o. at bedtime, calcitonin spray intranasally as directed, calcium plus vitamin D 1 tablet p.o. b.i.d., vitamin D 2000 units p.o. at bedtime, diclofenac sodium 1% external q.i.d. p.r.n., Colace 100 mg p.o. b.i.d., everolimus 2 mg p.o. b.i.d., ferrous sulfate 325 mg p.o. at bedtime, hydralazine 20 mg p.o. b.i.d., lidocaine patch q.a.m., multivitamin 1 tablet daily, nebivolol 10 mg p.o. a.m., oxycodone 5-10 mg p.o. q. 6 hours p.r.n., MiraLax 17 grams p.o. b.i.d., Senokot-S 2 tablets p.o. q.a.m. PHYSICAL EXAMINATION: GENERAL: The patient is alert and awake, seems to be in pain, but not in acute distress. VITAL SIGNS: Temperature 36.7, pulse 81, respiratory rate 20, blood pressure 147/74, oxygen 97% on room air. HEENT: No pallor, no icterus. Pupils equal, round, reactive to light. NECK: No JVD, no neck masses, no carotid bruit. CARDIOVASCULAR: S1, S2 heard, regular rate and rhythm, no murmur, no gallop. RESPIRATORY SYSTEM: Normal AP diameter. No accessory muscle use. No wheezing, no crackles. ABDOMEN: Soft, bowel sounds present. No distention, mild tenderness in left lower quadrant region. No guarding, no rigidity. CENTRAL NERVOUS SYSTEM: Cranial nerves nonfocal. EXTREMITIES: No edema, no erythema. LABORATORY DATA: WBC 4.3, hemoglobin 11.6, hematocrit 36.8, platelets 136. Sodium 135, potassium 5, chloride 98, bicarbonate 31, BUN 22, creatinine 3.26, serum glucose 107. Lactate 2, calcium 8.9, total bilirubin 0.4, AST 42, ALT 25, alkaline phosphatase 164. Troponin I less than 0.015. Lipase 268. Urinalysis positive for leukocyte esterase. IMAGING DATA: Chest x-ray, cardiomegaly without overt pulmonary edema and chest trace pleural effusions. CT of the abdomen and pelvis, moderate constipation without bowel obstruction or focal bowel thickening. Mild stenosis with bladder wall thickening correlate with urinary analysis. A 30% anterior plate compression deformity of L1 with 5-mm retropulsion is compatible with [id number] fracture, new from 08/03/2018. EKG: Normal sinus rhythm with a rate of 78, nonspecific T-wave abnormality. ASSESSMENT AND PLAN: This is a 78-year-old female who presents with chronic pain and also abdominal distention, constipation, found to have new L1 compression fracture. 1. Abdominal pain, most likely secondary to constipation and this could be also from the compression fractures. Will continue her home pain medication regimen with lidocaine patch, oxycodone p.r.n., Tylenol p.r.n. We will also put her on IV Dilaudid p.r.n. .For constipation will give Relistor. Continue home bowel regimen. Will give a dose of lactulose and Dulcolax suppository. IF No bowel movement will do enema. 2. L1 compression fracture new. Consult ortho spine surgery. 3. Possible sinus infection bringing up blackish mucous. Will place on IV Rocephin, follow the response. 4. Urinary tract infection, IV Rocephin, follow the cultures. 5. History of liver transplant, on immunosuppressant everolimus. 6. History of end-stage renal disease, on hemodialysis. Consult Nephrology 7. History of hypertension. Continue her blood pressure medications, hydralazine. Will monitor the blood pressure. 8. History of hyperlipidemia, currently on Lipitor. 9. History of anemia of chronic kidney disease. Hemoglobin 11.6. Follow the labs. 10. Constipation, as above. 11. Deep venous thrombosis prophylaxis. Heparin b.i.d. DISPOSITION: Admit to medical floor. PT and OT prior to discharge. Social service to help with discharge planning. Level 1 full code only if there is chance of recovery as per my discussion with the patient. MTDD
[2018-08-20] MEDS ORDERED: METHYLNALTREXONE BROMIDE 12 MG/0.6 ML VIAL SQ ONE (02:30)
[2018-08-20] MEDS ORDERED: levoFLOXacin 750 MG TAB PO ONE (02:30)
[2018-08-20] MEDS: HYDROmorphone INJ 0.5 MG/0.5 ML SYR IV PRN ×2 (02:43→05:47)
[2018-08-20 07:23] LABS: Basophils # (auto) 0.01 K/uL (0-0.2); Basophils % (auto) 0.2 %; Eosinophils # (auto) 0.07 K/uL (0-0.5); Eosinophils % (auto) 1.3 %; Hematocrit (blood only) 35.2 % (37-47); Hemoglobin 11.2 g/dL (12.0-16.0); Immature Granulocytes # (auto) 0.01 K/uL (0.00-0.02); Immature Granulocytes % (auto) 0.2 %; Lymphocytes # (auto) 1.08 K/uL (1.2-3.4); Lymphocytes % (auto) 20.2 %; Mean Corpuscular Hgb Conc 31.8 g/dL (32-36); Mean Corpuscular Volume 87.8 fL (80-100); Mean Platelet Volume 9.4 fL (7.4-10.4); Monocytes % (auto) 7.5 %; Neutrophils # (auto) 3.78 K/uL (1.4-6.5); Neutrophils % (auto) 70.6 %; Platelet Count 123 K/uL (130-400); RDW Coefficient of Variation 18.1 % (11.5-14.5); RDW Standard Deviation 58.2 fL (36.4-46.3); Red Blood Count 4.01 M/uL (4.2-5.4); White Blood Count 5.35 K/uL (4.8-10.8)
[2018-08-20 07:31] LABS: INR 1.2 (0.9-1.1); Prothrombin Time 11.9 Seconds (9.0-12.0)
[2018-08-20] MEDS ORDERED: COUGH DROP (SUGAR FREE) LOZ 24 LOZ/1 BOX BUCCAL ONE (07:46)
[2018-08-20 07:58] LABS: BUN Creatinine Ratio 7.7 (10-20); Calcium 8.9 mg/dl (8.5-10.1); Creatinine Clr Calc Pharmacy 8.2 ml/min; Est GFR (African American) 12.8; Magnesium 2.4 mg/dl (1.8-2.4); Potassium 4.8 mmol/L (3.5-5.1)
[2018-08-20] MEDS ORDERED: BISACODYL 10 MG SUPP PR ONE (08:00)
[2018-08-20] MEDS: HEPARIN SOD 5,000 UNIT/0.5 ML VIAL SQ SCH ×2 (10:02→20:47)
[2018-08-20] MEDS: DOCUSATE SODIUM 100 MG CAP PO SCH ×2 (10:04→20:46)
[2018-08-20] MEDS: POLYETHYLENE (MIRALAX) 17 GM PACK PO SCH ×2 (10:04→20:46)
[2018-08-20] MEDS: NEBIVOLOL HCL 5 MG TAB PO SCH (10:04)
[2018-08-20] MEDS: HydrALAZINE 10 MG TAB PO SCH ×2 (10:04→20:50)
[2018-08-20] MEDS: MULTIVITAMIN TAB PO SCH (10:04)
[2018-08-20] MEDS: CALCIUM 600MG + VIT D 400 IU TAB PO SCH ×2 (10:05→16:38)
[2018-08-20] MEDS: DOCUSATE SODIUM/SENNA 50/8.6MG TAB PO SCH (10:05)
[2018-08-20] MEDS: LIDOCAINE 5% 1 PATCH TD SCH (10:05)
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
[2018-08-20] MEDS: cefTRIAXone SODIUM 1,000 MG in DEXTROSE 5% 50 ML IV SCH (11:14)
[2018-08-20] MEDS: DEXAMETHASONE SOD PHOSPHATE 4 MG in SYRINGE 0 ML IV SCH ×3 (11:53→22:30)
[2018-08-20] MEDS: CALCITONIN SALMON NA 200 IU/AC 3.7 ML BTL SCH (12:35)
[2018-08-20] MEDS: ASCORBIC ACID 500 MG TAB PO SCH (12:48)
--- NOTE | 2018-08-20 13:36 | Hospitalist Progress Note ---
Date of Service August 20, 2018 Assessment & Plan (1) Acute exacerbation of chronic low back pain: She has osteoporosis with pain osteoporotic fracture of the lumbar and thoracic vertebrae For the last few days her pain has increased with radiculopathy She does have a new L1 compression fracture Has been on intravenous Dilaudid and lidocaine patch and local diclofenac cream Ortho evaluation for further recommendation-appreciate Ortho input and recommendation Discussed with Dr. Anthony, no surgery Continue physical therapy The patient has been accepted to [facility] but cannot go today as because of increasing pain Present on Admission?: Yes (2) Lumbar compression fracture: Possible new 30% L1 compression fracture Ortho consulted-await input and recommendation A small dose of Decadron was given but discontinued as it is not helping and can cause more osteoporosis Increasing pain today We will apply local moist heat as well (3) ESRD (end stage renal disease) on dialysis: Continue hemodialysis Nephrology consulted (4) Hx of liver transplant: Continue current medications No infection at this time Normal steroid (5) HTN (hypertension): Continue current medications (6) Abdominal pain: Likely secondary to compression fracture of the vertebrae No acute abdominal pathology found DVT prophylaxis Subcu heparin CODE STATUS Full Subjective 08/20 The patient was seen and examined in medical floor She is a 78 years old female with significant past medical history of end-stage renal disease on hemodialysis, status post orthotopic liver transplant x2 for autoimmune hepatitis, history of multiple lumbar spine compression fracture and hypertension was admitted with increasing back pain and radiculopathy. MRI of the lumbar spine did not show new 30% compression fracture of L1 vertebra She complains of severe back pain with the radiation of pain around his hips groin and buttock 08/21 The patient was seen and examined in medical She is back from dialysis and she has been crying with pain She does not have any radiculopathic symptoms He has not had a bowel movement yet Review of Systems Review of Systems: All systems reviewed and are unremarkable except as noted below Constitutional: + problem reported (Increasing back pain and restlessness) Musculoskeletal: + back pain and + radicular pain Physical Exam Physical Exam: Moderate distress at rest with pain Constitutional: + ill appearing Eyes: PERRL, conjunctivae normal, anicteric sclerae ENMT: external ear and nose normal, oropharynx normal Neck: trachea midline, no thyromegaly Respiratory: normal respiratory effort, lungs clear to auscultation Cardiovascular: Rate/Rhythm: regular rate and regular rhythm Heart Sounds: normal S1 and normal S2 Gastrointestinal (Abdomen): Inspection/Auscultation: abdomen normal to inspec tion and normal bowel sounds Percussion/Palpation: + abdomen tender (Extremely tender to palpation but no guarding and/or rigidity seems to be pain due to radiation) and abdomen soft Musculoskeletal: Maintenance of the left hip caused severe pain Neurologic: Alert, awake and oriented x3 Lymphatic: no cervical or axillary lymphadenopathy Results & Data Vital Signs (Past 12 Hours) Vital Signs Temp Pulse Pulse Resp BP Pulse Ox 08/20/18 07:48 36.8 C 83 18 175/69 H 95 08/20/18 02:01 36.7 C 85 18 192/91 H 95 08/20/18 01:31 77 20 153/71 H 92 Laboratory Results Short CBC 08/19/18 08/20/18 Range/Units 20:29 07:11 WBC 4.30 L 5.35 (4.8-10.8) K/uL Hgb 11.6 L 11.2 L (12.0-16.0) g/dL Hct 36.8 L 35.2 L (37-47) % Plt Count 136 123 L (130-400) K/uL BMP 08/19/18 08/20/18 20:29 07:11 Sodium 135 L 137 Potassium 5.0 4.8 Chloride 98 102 Carbon Dioxide 31 28 BUN 22 H 29 H Creatinine 3.26 H 3.76 H D Glucose 107 H 86 Calcium 8.9 8.9 Cardiac Enzymes 08/19/18 Range/Units 20:29 Troponin I < 0.015 (0-0.045) ng/ml Liver Function 08/19/18 Range/Units 20:29 Total Bilirubin 0.4 (0.2-1) mg/dl AST 42 H (15-37) U/L ALT 25 (12-78) U/L Alkaline Phosphatase 164 H (45-117) U/L Albumin 2.9 L (3.4-5.0) gm/dl Urine 08/19/18 Range/Units 22:56 Urine Color Yellow Urine Appearance Turbid A (Clear) Urine pH >= 9.0 H (4.5-7.5) Ur Specific [place] 1.012 (1.000-1.030) Urine Protein 2+ H (Negative) Urine Glucose (UA) Negative (Negative) Medications Administered Current Inpatient Medications Acetaminophen (Tylenol) 650 mg PO Q4H PRN PRN Reason: pain/fever Stop: 09/19/18 01:46 Ascorbic Acid (Vitamin C) 1,000 mg PO QDL [facility] Stop: 09/19/18 11:29 Last Admin: 08/20/18 12:48 Dose: 1,000 mg Documented by: Atorvastatin Calcium (Lipitor) 20 mg PO HS [facility] Stop: 09/19/18 20:59 Calcitonin [place] (Fortical) 1 sprays NA DAILY [facility] Stop: 09/19/18 08:59 Last Admin: 08/20/18 12:35 Dose: Not Given Documented by: Diclofenac Sodium (Voltaren 1% Top) 1 appln EXT QID PRN PRN Reason: pain Stop: 09/19/18 01:46 Docusate Sodium (Colace) 100 mg PO BID [facility] Stop: 09/19/18 08:59 Last Admin: 08/20/18 10:04 Dose: Not Given Documented by: Ferrous Sulfate (Feosol) 325 mg PO HS [facility] Stop: 09/19/18 20:59 Heparin Sodium (Porcine) (Heparin Sodium (Porcine)) 5,000 units SQ Q12 [facility] Stop: 09/19/18 08:59 Last Admin: 08/20/18 10:02 Dose: 5,000 units Documented by: Hydralazine HCl (Apresoline) 20 mg PO BID [facility] Stop: 09/19/18 08:59 Last Admin: 08/20/18 10:04 Dose: 20 mg Documented by: Hydromorphone HCl (Dilaudid) 0.5 mg IV Q3H PRN PRN Reason: Pain Stop: 09/03/18 01:46 Last Admin: 08/20/18 05:47 Dose: 0.5 mg Documented by: Ceftriaxone Sodium 1,000 mg/ (Dextrose) 50 mls @ 100 mls/hr IV Q24H [facility]; Protocol Stop: 08/30/18 07:59 Last Infusion: 08/20/18 12:12 Dose: Infused Documented by: Dexamethasone Sodium Phosphate (4 mg/ Syringe) 1 mls @ 1 mls/min IV Q6H [facility] Stop: 09/19/18 10:59 Last Admin: 08/20/18 11:53 Dose: 1 mls/min Documented by: Ipratropium [place] (Atrovent 0.02% 0.5mg/2.5ml) 0.5 mg INH Q4H PRN PRN Reason: SOB/WHEEZ Stop: 09/19/18 01:46 Levalbuterol HCl (Xopenex 1.25mg/0.5ml Neb) 1.25 mg INH Q4H PRN PRN Reason: SOB/WHEEZ Stop: 09/19/18 01:46 Lidocaine (Lidoderm 5%) 1 patch TD QAM [facility] Stop: 09/19/18 08:59 Last Admin: 08/20/18 10:05 Dose: 1 patch Documented by: Miscellaneous (Order Awaiting Action) 1 ea N/A QS [facility] Stop: 09/19/18 02:59 Last Admin: 08/20/18 09:45 Dose: Not Given Documented by: Magno (Remove Lidoderm Patch) 1 ea N/A DAILY@2100 [facility] Stop: 09/19/18 20:59 Multivitamins (Multivitamin Tab) 1 tab PO QAM [facility] Stop: 09/19/18 08:59 Last Admin: 08/20/18 10:04 Dose: 1 tab Documented by: Multivitamins/Minerals (Caltrate Plus) 1 tab PO BID17 [facility] Stop: 09/19/18 08:59 Last Admin: 08/20/18 10:05 Dose: 1 tab Documented by: Nebivolol (Bystolic) 10 mg PO DAILY [facility] Stop: 09/19/18 08:59 Last Admin: 08/20/18 10:04 Dose: 10 mg Documented by: Ondansetron HCl (Zofran) 4 mg IV Q6H PRN PRN Reason: Nausea Stop: 09/19/18 01:46 Oxycodone HCl (Roxicodone Immediate Rel) 5 - 10 mg PO Q6 PRN PRN Reason: pain Stop: 09/03/18 01:46 Polyethylene Glycol (Miralax Powder Packet) 17 gm PO BID [facility] Stop: 09/19/18 08:59 Last Admin: 08/20/18 10:04 Dose: Not Given Documented by: Senna/Docusate Sodium (Senokot S) 2 tab PO QAM [facility] Stop: 09/19/18 08:59 Last Admin: 08/20/18 10:05 Dose: Not Given Documented by: Vitamin D (Vitamin D3) 2,000 units PO HS [facility] Stop: 09/19/18 20:59 (1) Lumbar compression fracture Encounter type: initial encounter Fracture type: closed Lumbar vertebra fracture level: L1 Qualified Code(s): S32.010A - Wedge compression fracture of first lumbar vertebra, initial encounter for closed fracture (2) HTN (hypertension) Hypertension type: essential hypertension Qualified Code(s): I10 - Essential (primary) hypertension
--- NOTE | 2018-08-20 14:26 | Consultation ---
Date of Consultation August 20, 2018 Assessment & Plan (1) Lumbar compression fracture: Acute on chronic L1 compression fracture We will continue with conservative treatment. Her family is going to bring her elastic brace that she may wear with activity. I would not proceed with a kyphoplasty given her multiple compression fractures without significant fall. She would certainly be at high risk for developing adjacent level fractures with kyphoplasty. Ambulate ad zo. No lifting over 5 pounds. Supervising Physician Co-Signing Physician Notes Dr. Houston Anthony History of Present Illness This is a 78-year-old female that we are asked to see in consultation regarding an acute L1 compression fracture. She denies any recent falls. She was in the hospital about 2 weeks ago for same complaints at which point Dr. Ortiz was consulted for multiple compression deformities. He had seen her in the office about a week prior to this admission. She was given an elastic LSO brace but reports it is too big for her. She does report she is wearing it at home though. ambulates independently. Denies radicular complaints. She reports she has been requiring about 4 oxycodone a day for pain control over the past several weeks. Her biggest complaint upon my visit with her today was phlegm. Attending Physician: Blade Urban MD Allergies Allergy/AdvReac Type Severity Reaction Status Date / Time No Known Allergies Allergy Unverified 08/19/18 23:39 Home Medications Home Medications Medication Instructions Recorded Confirmed Type ascorbic acid (vitamin C) [Vitamin 1,000 mg PO QDL 06/03/18 08/19/18 History C] atorvastatin 20 mg PO HS 06/03/18 08/19/18 History calcium carbonate-vitamin D3 1 tab PO BID 06/03/18 08/19/18 History [Calcium 500 + D] cholecalciferol (vitamin D3) 2,000 unit PO HS 06/03/18 08/19/18 History [Vitamin D3] everolimus (immunosuppressive) 2 mg PO BID 06/03/18 08/19/18 History ferrous sulfate 325 mg PO HS 06/03/18 08/19/18 History multivitamin 1 tab PO QAM 06/03/18 08/19/18 History nebivolol 10 mg PO QAM 06/03/18 08/19/18 History lidocaine 1 patch TRANSDERMAL QAM #30 ea 07/16/18 08/19/18 Rx sennosides-docusate sodium [Senna 2 tab PO QAM #60 tab 07/16/18 08/19/18 Rx with Docusate Sodium] diclofenac sodium [Voltaren] 1 % EXT QID PRN #100 gm 08/07/18 08/19/18 Rx docusate sodium 100 mg PO BID #60 cap 08/07/18 08/19/18 Rx hydralazine 20 mg PO BID #120 tab 08/07/18 08/19/18 Rx oxycodone 5 - 10 mg PO Q6 PRN #30 tab 08/07/18 08/19/18 Rx polyethylene glycol 3350 [Miralax] 17 g PO BID #30 ea 08/07/18 08/19/18 Rx acetaminophen [Pain Reliever] 1,000 mg PO Q4H PRN 08/19/18 08/19/18 History calcitonin (salmon) 1 spray INTRANASAL UD 08/19/18 08/19/18 History polyethylene glycol 3350 [Miralax] 17 g PO DAILY 08/19/18 08/19/18 History Patient History Medical History HTN (hypertension) (Chronic) HLD (hyperlipidemia) (Chronic) Osteoporosis (Chronic) Anemia (Chronic) History of renal dialysis Hx of compression fracture of spine Surgical History S/P tubal ligation (Chronic) H/O detached retina repair (Chronic) S/P cataract extraction and insertion of intraocular lens (Chronic) 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 She is cooperative with exam. No obvious distress. She is able to roll over in bed with ease for me. Nontender to patient of the lower lumbar spine. No lacerations or ecchymosis. Strength is 5 5 bilateral EHL, dorsiflexion, plantar flexion, quadriceps, hamstrings, hip flexors. Calves are soft nontender bilaterally. Negative tension signs bilaterally. Negative logrolling bilaterally. Constitutional: WD/WN, vitals as above Eyes: normal visual stroud by confrontation ENMT: external ear and nose normal, oropharynx normal Neck: normal visual inspection Respiratory: normal respiratory effort Cardiovascular: Vessels: dorsalis pedis pulses present Extremities: normal capillary refill Gastrointestinal (Abdomen): Inspection/Auscultation: abdomen normal to inspection Musculoskeletal: no cyanosis or clubbing, extremities motor strength 5/5 Extremities: strength 5/5 throughout Skin: no rashes, warm and dry Neurologic: patellar DTR's 2+ bilat, sensation intact normal touch/pain/proprioception Psychiatric: A+Ox3, euthymic affect Results & Data Vital Signs (Past 12 Hours) Vital Signs Temp Pulse Resp BP Pulse Ox 08/20/18 07:48 36.8 C 83 18 175/69 H 95 Diagnostic Findings Patient: Betzy POE Date: 08/19/18 MR#: [id number]: [address] [facility] Acct ID:[id number]: Date: [address] [place] [address] Zip: [place] [address] Age: 78Location: ED Sex: F Room/Bed: Att Phy: Diagnosis: PAIN IN ABD. CONSTIPATED, SOB Theresa Phy: Lucius Stern MDService Date: 08/19/18 Fam Phy: Interpreting Phy: Cosmo Montgomery Admit Phy: Ordering Phy: Aly Torres MD cc: ~ ABDOMEN AND PELVIS CT WITHOUT CONTRAST CT DOSE: 266.29 mGy.cm HISTORY: Acute generalized abdominal pain abd pain TECHNIQUE: Multiaxial CT images of the abdomen and pelvis were performed without contrast. A dose lowering technique was utilized adhering to the principles of ALARA. COMPARISON STUDY: CT abdomen and pelvis 07/28/2018, MRI lumbar spine 08/03/2017 FINDINGS: Trace pleural effusions with subsegmental bibasilar atelectasis. No pneumatosis or pneumoperitoneum. Imaged inferior cardiac chambers are enlarged with trace pericardial effusion and coronary arterial calcifications noted. Extensive vascular calcifications are noted throughout the abdomen and pelvis. Indeterminate calcifications are again noted in the region of the suprahepatic IVC. Liver is otherwise unremarkable. The spleen, pancreas and adrenal glands appear unremarkable. Mildly atrophic appearance of the kidneys with associated cortical thinning. No renal or ureteral calculi or obstructive uropathy identified. Mild wall thickening of the bladder. Adnexa are unremarkable. There is mild prominence of the endometrium measuring approximately 9 mm. There is no aortic aneurysm or adenopathy identified. There is no small bowel obstruction. Moderate volume of formed stool is noted throughout the colon. Hyperdense material is noted within the appendix suggest marija of retained enteric contrast or appendicolith. No CT evidence of acute appendicitis. Prior partial small bowel resection within the abdominal right lower quadrant. No evidence of associated bowel wall thickening. No ascites or mesenteric inflammation identified. There are multiple ventral abdominal wall hernias noted along with diastases recti. Right lateral abdominal wall hernia with diastases of 3.0 cm contains nonobstructed loops of small bowel. Suprapubic ventral abdominal wall hernia contains additional nonobstructive loops of small bowel. There is mild generalized body wall edema. Demineralized appearance of the bones. Degenerative changes of the spine, pelvis and hips. Healed remote fracture of the right inferior pubic ramus. Multiple lumbar spine compression deformities redemonstrated, unchanged at L3, L4 and L5. 30% anterior endplate compression deformity of L1 with 6 mm retropulsion about the superior aspect of the posterior endplate is new from prior study which results in mild central canal stenosis. Compression fracture at L2 demonstrates mild progressive sclerosis of the inferior endplate. IMPRESSION: 1. Moderate constipation without bowel obstruction or focal bowel wall thickening. 2. Diastases recti with multiple ventral abdominal wall hernias, some of which contain nonobstructed loops of small bowel. 3. Prior partial small bowel resection. 4. Mild nonspecific urinary bladder wall thickening. Correlate with urinalysis. 5. Trace pleural effusions with mild bibasilar atelectasis. 6. 30% anterior plate compression deformity at L1 with 5 mm retropulsion is compatible with an acute on chronic fracture, new from 08/03/2018. This results in mild central canal stenosis. 7. Additional findings as above. Electronically signed by: Mikey Montgomery M.D. 08/19/2018 9:36 PM MR lumbar spine wo con CLINICAL HISTORY: Persistent low back pain. TECHNIQUE: Sagittal and axial T1, T2 and STIR images were obtained. COMPARISON STUDY: CT scan dated 07/28/2018 OBSERVATIONS: There are chronic L1-L5 endplate compression deformities. There are no areas of marrow edema to indicate an acute fracture. L1-2: No disc protrusions or extrusions. No evidence of spinal canal or neural foraminal compromise. L2-3: There is minimal retropulsion of the L3 superior endplate compression fracture. This results in a slight spinal canal narrowing. There is no signi ficant foraminal narrowing. No disc herniations are visualized. L3-4: There is a minor circumferential disc bulge. There is mild trying or spinal canal narrowing. There is no significant foraminal narrowing L4-5: There is a mild circumferential disc bulge. There is minor trying or spinal canal narrowing. There is no significant foraminal narrowing L5-S1: There is a mild circumferential disc bulge. There is facet joint arthropathy. There is minimal spinal canal narrowing. There is no significant foraminal narrowing. The conus medullaris and cauda equina appear normal. IMPRESSION: 1. Chronic L1-L5 vertebral body endplate compression deformities 2. No acute fractures identified 3. Mild multilevel spondylitic changes with very mild spinal canal narrowing at the L2-3 through L5-S1 levels Electronically signed by: Dl Chaves M.D. 08/03/2018 7:23 PM (1) Lumbar compression fracture Encounter type: initial encounter Fracture type: closed Lumbar vertebra fracture level: L1 Qualified Code(s): S32.010A - Wedge compression fracture of first lumbar vertebra, initial encounter for closed fracture
[2018-08-20] MEDS ORDERED: cloNIDine HCl 0.1 MG TAB PO PRN (16:06)
[2018-08-20] MEDS ORDERED: diphenhydrAMINE HCl 12.5 MG/5 ML UDC PO PRN (17:20)
[2018-08-20] MEDS: ATORVASTATIN 20 MG TAB PO SCH (20:50)
[2018-08-20] MEDS: CHOLECALCIFEROL 1,000 UNITS TAB PO SCH (20:50)
[2018-08-20] MEDS: FERROUS SULFATE 325 MG TAB PO SCH (20:51)
[2018-08-21] MEDS: DEXAMETHASONE SOD PHOSPHATE 4 MG in SYRINGE 0 ML IV SCH ×2 (05:10→13:38)
[2018-08-21] MEDS ORDERED: SODIUM CHLORIDE 0.9% 1000ML 1,000 ML IV PRN (07:00)
[2018-08-21] MEDS: HydrALAZINE 10 MG TAB PO SCH ×2 (08:47→21:45)
[2018-08-21] MEDS: NEBIVOLOL HCL 5 MG TAB PO SCH (08:48)
[2018-08-21] MEDS: CALCIUM 600MG + VIT D 400 IU TAB PO SCH ×2 (08:49→16:15)
[2018-08-21] MEDS: DOCUSATE SODIUM 100 MG CAP PO SCH ×2 (08:49→21:45)
[2018-08-21] MEDS: DOCUSATE SODIUM/SENNA 50/8.6MG TAB PO SCH (08:49)
[2018-08-21] MEDS: LIDOCAINE 5% 1 PATCH TD SCH (08:50)
[2018-08-21] MEDS: CALCITONIN SALMON NA 200 IU/AC 3.7 ML BTL SCH (08:50)
[2018-08-21] MEDS: POLYETHYLENE (MIRALAX) 17 GM PACK PO SCH ×2 (08:51→14:43)
[2018-08-21] MEDS: MULTIVITAMIN TAB PO SCH (08:51)
[2018-08-21] MEDS: HEPARIN SOD 5,000 UNIT/0.5 ML VIAL SQ SCH ×2 (08:52→21:45)
--- NOTE | 2018-08-21 10:50 | Nephrology Progress Note ---
Date of Service August 21, 2018 Assessment & Plan (1) ESRD (end stage renal disease) on dialysis: -- HD orders reviewed with nurse -- BP acceptable -- UF goal 2 L -- Rx: MWF 3hr 2K 2.5Ca F-160NR Qb 400/ Qd 800 EDW 48 kg -- Monitor metabolic profile QMWF as inpatient -- Renal diet -- Medications are appropriately dosed for kidney function (2) HTN (hypertension): -- Continue Hydralazine and Nebivolol as Rx (3) Anemia: -- Chronic, stable -- Hgb > 11 -- Hold KALLIE therapy (4) Acute exacerbation of chronic low back pain: -- Ortho consult reviewed Subjective No acute events overnight. Patient was seen during HD today. Tolerating treatment well. Qb adequate. Review of Systems Review of Systems: All systems reviewed & are unremarkable except as noted in HPI & below Physical Exam Constitutional: well developed, + frail appearing and + in distress Eyes: no scleral abnormality and no corneal abnormality ENMT: Mouth: no oral mucosal abnormality and oral mucous membranes not dry Neck: normal visual inspection and trachea midline Respiratory: normal respiratory effort Auscultation: lungs clear to auscultation bilaterally Cardiovascular: Rate/Rhythm: regular rate Heart Sounds: normal S1 and normal S2 Extremities: + AV fistula; no edema Gastrointestinal (Abdomen): Percussion/Palpation: abdomen soft; abdomen nontender Musculoskeletal: Extremities: no cyanosis and no clubbing Skin: normal turgor; no rashes Neurologic: Motor/Sensory: no tremor and no asterixis Psychiatric: Mood: + depressed mood Results & Data Vital Signs (Past 12 Hours) Vital Signs Temp Pulse Pulse Resp BP BP Pulse Ox 08/21/18 10:40 66 164/75 H 08/21/18 10:20 67 144/77 H 08/21/18 10:00 64 141/74 H 08/21/18 09:40 75 166/82 H 08/21/18 09:21 36.4 C L 68 68 161/74 H 08/21/18 08:05 36.5 C 18 157/67 H 94 08/20/18 23:09 36.5 C 63 14 126/55 L 96 (1) HTN (hypertension) Hypertension type: essential hypertension Qualified Code(s): I10 - Essential (primary) hypertension (2) Anemia Anemia type: due to chronic kidney disease
[2018-08-21] MEDS: cefTRIAXone SODIUM 1,000 MG in DEXTROSE 5% 50 ML IV SCH (11:09)
[2018-08-21] MEDS: HYDROmorphone INJ 0.5 MG/0.5 ML SYR IV PRN ×2 (13:37→19:16)
[2018-08-21] MEDS: ASCORBIC ACID 500 MG TAB PO SCH (13:38)
[2018-08-21] MEDS: AMOXICILLIN/CLAVULANATE 500 MG TAB PO SCH (15:24)
[2018-08-21] MEDS: OXYCODONE HCL IR 5 MG TAB (IMMEDIATE RELEASE) PO PRN (15:29)
[2018-08-21] MEDS: FERROUS SULFATE 325 MG TAB PO SCH (21:45)
[2018-08-21] MEDS: EVEROLIMUS 0.5 MG PO SCH (21:46)
[2018-08-21] MEDS: CHOLECALCIFEROL 1,000 UNITS TAB PO SCH (21:46)
[2018-08-21] MEDS: ATORVASTATIN 20 MG TAB PO SCH (21:46)
[2018-08-22] MEDS: ZOLPIDEM TARTRATE 5 MG TAB PO PRN ×2 (00:13→22:01)
[2018-08-22] MEDS: guaiFENesin 600 MG TABCR PO SCH ×3 (00:13→20:06)
[2018-08-22] MEDS: HydrALAZINE 10 MG TAB PO SCH ×2 (09:09→20:05)
[2018-08-22] MEDS: NEBIVOLOL HCL 5 MG TAB PO SCH (09:09)
[2018-08-22] MEDS: MULTIVITAMIN TAB PO SCH (09:10)
[2018-08-22] MEDS: EVEROLIMUS 0.5 MG PO SCH ×2 (09:10→20:07)
[2018-08-22] MEDS: DOCUSATE SODIUM 100 MG CAP PO SCH ×2 (09:10→20:04)
[2018-08-22] MEDS: CALCIUM 600MG + VIT D 400 IU TAB PO SCH ×2 (09:10→16:12)
[2018-08-22] MEDS: POLYETHYLENE (MIRALAX) 17 GM PACK PO SCH (09:10)
[2018-08-22] MEDS: DOCUSATE SODIUM/SENNA 50/8.6MG TAB PO SCH (09:10)
[2018-08-22] MEDS: LIDOCAINE 5% 1 PATCH TD SCH (09:11)
[2018-08-22] MEDS: CALCITONIN SALMON NA 200 IU/AC 3.7 ML BTL SCH ×2 (09:11→10:35)
[2018-08-22] MEDS: HEPARIN SOD 5,000 UNIT/0.5 ML VIAL SQ SCH ×2 (09:19→20:06)
[2018-08-22] MEDS: OXYCODONE HCL IR 5 MG TAB (IMMEDIATE RELEASE) PO PRN (09:22)
[2018-08-22] MEDS ORDERED: levoFLOXacin 500 MG TAB PO SCH (11:00)
[2018-08-22] MEDS ORDERED: ALBUT/IPRATROP 3MG/0.5MG NEB 3 ML VIAL NEB ONE (11:25)
[2018-08-22] MEDS ORDERED: BISACODYL 10 MG SUPP PR STA (11:38)
--- NOTE | 2018-08-22 11:56 | Nephrology Progress Note ---
Date of Service August 22, 2018 Assessment & Plan (1) ESRD (end stage renal disease) on dialysis: -- HD MWF -- BP acceptable -- Volume status acceptable -- Rx: 3hr 2K 2.5Ca F-160NR Qb 400/ Qd 800 EDW 48 kg -- Monitor metabolic profile QMWF as inpatient -- Renal diet -- Medications are appropriately dosed for kidney function (2) HTN (hypertension): -- Continue Hydralazine and Nebivolol as Rx (3) Anemia: -- Chronic, stable -- Hgb > 11 -- Hold KALLIE therapy (4) Acute exacerbation of chronic low back pain: -- Ortho consult reviewed, no surgical intervention Subjective No acute events overnight. Tolerated HD well yesterday without complications. No updated notes for review. Review of Systems Review of Systems: All systems reviewed & are unremarkable except as noted in HPI & below Physical Exam Constitutional: well developed and + frail appearing; not in distress Eyes: no scleral abnormality and no corneal abnormality ENMT: Mouth: no oral mucosal abnormality and oral mucous membranes not dry Neck: normal visual inspection and trachea midline Respiratory: normal respiratory effort Auscultation: lungs clear to auscultation bilaterally Cardiovascular: Rate/Rhythm: regular rate Heart Sounds: normal S1 and normal S2 Extremities: + AV fistula; no edema Gastrointestinal (Abdomen): Percussion/Palpation: abdomen soft; abdomen nontender Musculoskeletal: Extremities: no cyanosis and no clubbing Skin: normal turgor; no rashes Neurologic: Motor/Sensory: no tremor and no asterixis Psychiatric: Mood: + depressed mood Results & Data Vital Signs (Past 12 Hours) Vital Signs Temp Pulse Resp BP Pulse Ox 08/22/18 07:45 36.4 C L 69 16 152/67 H 95 08/22/18 01:15 36.5 C 74 14 154/69 H 96 (1) HTN (hypertension) Hypertension type: essential hypertension Qualified Code(s): I10 - Essential (primary) hypertension (2) Anemia Anemia type: due to chronic kidney disease
[2018-08-22] MEDS: ASCORBIC ACID 500 MG TAB PO SCH (12:46)
[2018-08-22] MEDS: guaiFENesin SUGAR FREE 100 MG/5 ML UDC PO PRN ×2 (13:01→20:11)
--- NOTE | 2018-08-22 14:05 | Hospitalist Progress Note ---
Date of Service August 22, 2018 Assessment & Plan (1) Lumbar compression fracture: (2) Acute exacerbation of chronic low back pain: hx osteoporosis with pain osteoporotic fracture of the lumbar and thoracic vertebrae CT abd/pelvis showed 30% anterior plate compression deformity at L1 with 5 mm retropulsion is compatible with an acute on chronic fracture, new from 08/03/2018. On intravenous Dilaudid and lidocaine patch and local diclofenac cream Ortho on board and recommended no surgical intervention Continue physical therapy Continue pain management Continue elastic brace that she may wear with activity. No lifting over 5 pounds. (3) ESRD (end stage renal disease) on dialysis: Continue hemodialysis on [facility] Nephrology on board Next HD tomorrow (4) Hx of liver transplant: Continue current medications No infection at this time Normal steroid (5) HTN (hypertension): Continue current medications (6) Abdominal pain: Constipation Mostly due to opiod CT abd/pelvis showed moderate constipation without bowel obstruction or focal bowel wall thickening. No acute abdominal pathology found Continue laxative prn UTI Urine cx positive for strep species already on augmentin Stable DVT prophylaxis Subcu heparin CODE STATUS Full Disposition Will discharge home today Subjective Pt was seen and examined Sitting in bed continue to have back pain Pt said that the dilaudid help with pain Pt said that she had a small BM today She is complaint of phlegm in her throat that she is having a hard time to bring it up Updates provided to the Son at bedside denies any chest pain, palpitation, dizziness and SOB Physical Exam Physical Exam: Constitutional: + ill appearing Eyes: PERRL, conjunctivae normal, anicteric sclerae ENMT: external ear and nose normal, oropharynx normal Neck: trachea midline, no thyromegaly Respiratory: normal respiratory effort, lungs clear to auscultation Cardiovascular: regular, no murmur Gastrointestinal: +BS, + abdomen tender with deep palpation Neurologic: Alert, awake and oriented x3 Lymphatic: no cervical or axillary lymphadenopathy Results & Data Vital Signs (Past 12 Hours) Vital Signs Temp Pulse Pulse Resp BP Pulse Ox 08/22/18 12:07 18 L 99 H 20 97 08/22/18 07:45 36.4 C L 69 16 152/67 H 95 (1) Lumbar compression fracture Encounter type: initial encounter Fracture type: closed Lumbar vertebra fracture level: L1 Qualified Code(s): S32.010A - Wedge compression fracture of first lumbar vertebra, initial encounter for closed fracture (2) HTN (hypertension) Hypertension type: essential hypertension Qualified Code(s): I10 - Essential (primary) hypertension
[2018-08-22] MEDS: AMOXICILLIN/CLAVULANATE 500 MG TAB PO SCH (16:12)
[2018-08-22] MEDS: LEVALBUTEROL 1.25MG/0.5ML NEB INH PRN (19:26)
[2018-08-22] MEDS: IPRATROPIUM BROMIDE NEB SOLN 0.02% 2.5 ML VIAL INH PRN (19:27)
[2018-08-22] MEDS: HYDROmorphone INJ 0.5 MG/0.5 ML SYR IV PRN (19:57)
[2018-08-22] MEDS: CHOLECALCIFEROL 1,000 UNITS TAB PO SCH (20:03)
[2018-08-22] MEDS: ATORVASTATIN 20 MG TAB PO SCH (20:03)
[2018-08-22] MEDS: FERROUS SULFATE 325 MG TAB PO SCH (20:04)
[2018-08-23] MEDS: LEVALBUTEROL 1.25MG/0.5ML NEB INH PRN (06:01)
[2018-08-23] MEDS: IPRATROPIUM BROMIDE NEB SOLN 0.02% 2.5 ML VIAL INH PRN (06:01)
[2018-08-23 07:23] LABS: Hematocrit (blood only) 36.1 % (37-47); Hemoglobin 12.3 g/dL (12.0-16.0); Mean Corpuscular Hgb Conc 34.1 g/dL (32-36); Mean Corpuscular Volume 84.7 fL (80-100); Mean Platelet Volume 9.6 fL (7.4-10.4); Platelet Count 140 K/uL (130-400); RDW Coefficient of Variation 17.9 % (11.5-14.5); RDW Standard Deviation 56.2 fL (36.4-46.3); Red Blood Count 4.26 M/uL (4.2-5.4); White Blood Count 5.27 K/uL (4.8-10.8)
[2018-08-23] MEDS ORDERED: AMOXICILLIN/CLAVULANATE 500 MG TAB PO SCH (08:00)
[2018-08-23] MEDS: CALCIUM 600MG + VIT D 400 IU TAB PO SCH ×2 (09:09→16:37)
[2018-08-23] MEDS: guaiFENesin 600 MG TABCR PO SCH (09:09)
[2018-08-23] MEDS: guaiFENesin SUGAR FREE 100 MG/5 ML UDC PO PRN (09:10)
[2018-08-23] MEDS: MULTIVITAMIN TAB PO SCH (09:10)
[2018-08-23] MEDS: LIDOCAINE 5% 1 PATCH TD SCH (09:21)
[2018-08-23] MEDS: HEPARIN SOD 5,000 UNIT/0.5 ML VIAL SQ SCH (09:21)
[2018-08-23] MEDS: CALCITONIN SALMON NA 200 IU/AC 3.7 ML BTL SCH (09:21)
[2018-08-23] MEDS: HYDROmorphone INJ 0.5 MG/0.5 ML SYR IV PRN (09:22)
[2018-08-23] MEDS: EVEROLIMUS 0.5 MG PO SCH (09:24)
--- NOTE | 2018-08-23 10:11 | Hospitalist Progress Note ---
Date of Service August 23, 2018 Assessment & Plan (1) Lumbar compression fracture: Possible new 30% L1 compression fracture Ortho consulted-await input and recommendation A small dose of Decadron was given but discontinued as it is not helping and can cause more osteoporosis Increasing pain today We will apply local moist heat as well (2) Acute exacerbation of chronic low back pain: hx osteoporosis with pain osteoporotic fracture of the lumbar and thoracic vertebrae CT abd/pelvis showed 30% anterior plate compression deformity at L1 with 5 mm retropulsion is compatible with an acute on chronic fracture, new from 08/03/2018. On intravenous Dilaudid and lidocaine patch and local diclofenac cream Ortho on board and recommended no surgical intervention Continue physical therapy Continue pain management Continue elastic brace that she may wear with activity. No lifting over 5 pounds. (3) ESRD (end stage renal disease) on dialysis: Continue hemodialysis on [facility] Nephrology on board Will get HD today (4) Hx of liver transplant: Continue current medications No infection at this time Normal steroid (5) Phlegm in throat: Increased phlegm in throat in throat Symptoms has been going on since Feb 2017 Small lump felt around the submandibular area (seems to be lymph node) Improvement with the mucinex syrup and neb treatment that help to bring the phlegm out Will add loratadine daily CT chest done showed soft tissue with Normal thyroid and thoracic inlet. No axillary, supraclavicular, mediastinal, or hilar lymphadenopathy U/S of the neck showed nonspecific well circumscribed bilateral submandibular nodule I called the ENT office and schedule an appt with ENT on 08/29 @ 7:50 AM with Levi NGNP (6) HTN (hypertension): Continue current medications (7) Abdominal pain: Constipation Mostly due to opiod CT abd/pelvis showed moderate constipation without bowel obstruction or focal bowel wall thickening. No acute abdominal pathology found Continue laxative prn UTI Urine cx positive for strep species Already on augmentin Stable DVT prophylaxis Subcu heparin CODE STATUS Full Disposition Will discharge to [facility] today after HD Subjective Pt was seen and examined Standing in the room pacing around with no distress Pt said that the nebulizer treatment and the cough syrup help She said that she was able to cough out alot of phlegm Pt said that she still feels alot of phlegm in her throat She said that symptoms seems to get worst during HD because she has to lie down for more than 3 hrs Pt said that she has been having this problem since Feb 2017 when starting HD Denies any difficulty to swallow, SOB, palpitation., chest pain and SOB Physical Exam Physical Exam: Constitutional: + ill appearing Eyes: PERRL, conjunctivae normal, anicteric sclerae ENMT: external ear and nose normal, oropharynx normal Neck: trachea midline, no thyromegaly, +L carotid bruit, +small lump in left submandibular area Respiratory: normal respiratory effort, lungs clear to auscultation Cardiovascular: regular, no murmur Gastrointestinal: +BS, + abdomen tender with deep palpation Neurologic: Alert, awake and oriented x3 Lymphatic: no cervical or axillary lymphadenopathy Results & Data Vital Signs (Past 12 Hours) Vital Signs Temp Pulse Resp BP Pulse Ox 08/23/18 08:18 36.9 C 82 18 167/78 H 94 08/23/18 06:02 75 18 96 08/22/18 22:52 36.5 C 77 14 151/64 H 94 (1) Lumbar compression fracture Encounter type: initial encounter Fracture type: closed Lumbar vertebra fracture level: L1 Qualified Code(s): S32.010A - Wedge compression fracture of first lumbar vertebra, initial encounter for closed fracture (2) HTN (hypertension) Hypertension type: essential hypertension Qualified Code(s): I10 - Essential (primary) hypertension
[2018-08-23] MEDS ORDERED: LORATADINE 10 MG TAB PO SCH (10:15)
--- NOTE | 2018-08-23 11:08 | Nephrology Progress Note ---
Date of Service August 23, 2018 Assessment & Plan (1) ESRD (end stage renal disease) on dialysis: -- HD MWF -- Orders entered into EMR and discussed with HD nurse -- BP acceptable -- Volume status acceptable -- Rx: 3hr 2K 2.5Ca F-160NR Qb 400/ Qd 800 EDW 48 kg -- Monitor metabolic profile QMWF as inpatient -- Renal diet -- Medications are appropriately dosed for kidney function -- Plan possible DC to [facility], will continue to follow (2) HTN (hypertension): -- Continue Hydralazine and Nebivolol as Rx (3) Anemia: -- Chronic, stable -- Hgb > 11 -- Hold KALLIE therapy (4) Acute exacerbation of chronic low back pain: Subjective Pain persists. Diane was in tears this morning. Activity tolerance limited. Frustration expressed. Review of Systems Review of Systems: All systems reviewed & are unremarkable except as noted in HPI & below Physical Exam Constitutional: well developed and + frail appearing; not in distress Eyes: no scleral abnormality and no corneal abnormality ENMT: Mouth: no oral mucosal abnormality and oral mucous membranes not dry Neck: normal visual inspection and trachea midline Respiratory: normal respiratory effort Auscultation: lungs clear to auscultation bilaterally Cardiovascular: Rate/Rhythm: regular rate Heart Sounds: normal S1 and normal S2 Extremities: + AV fistula; no edema Gastrointestinal (Abdomen): Percussion/Palpation: abdomen soft; abdomen nontender Musculoskeletal: Extremities: no cyanosis and no clubbing Skin: normal turgor; no rashes Neurologic: Motor/Sensory: no tremor and no asterixis Psychiatric: Mood: + depressed mood Results & Data Vital Signs (Past 12 Hours) Vital Signs Temp Pulse Resp BP Pulse Ox 08/23/18 08:18 36.9 C 82 18 167/78 H 94 08/23/18 06:02 75 18 96 Laboratory Results Laboratory Results - last 24 hr 08/23/18 06:42 WBC 5.27 RBC 4.26 Hgb 12.3 Hct 36.1 L MCV 84.7 MCH 28.9 MCHC 34.1 RDW Std Deviation 56.2 H RDW Coeff of Darci 17.9 H Plt Count 140 MPV 9.6 (1) HTN (hypertension) Hypertension type: essential hypertension Qualified Code(s): I10 - Essential (primary) hypertension (2) Anemia Anemia type: due to chronic kidney disease
[2018-08-23] MEDS: POLYETHYLENE (MIRALAX) 17 GM PACK PO SCH (11:45)
[2018-08-23] MEDS: DOCUSATE SODIUM 100 MG CAP PO SCH (11:45)
[2018-08-23] MEDS: DOCUSATE SODIUM/SENNA 50/8.6MG TAB PO SCH (11:45)
[2018-08-23] MEDS ORDERED: SODIUM CHLORIDE 0.9% 1000ML 1,000 ML IV PRN (11:54)
[2018-08-23] MEDS: NEBIVOLOL HCL 5 MG TAB PO SCH (13:38)
[2018-08-23] MEDS: HydrALAZINE 10 MG TAB PO SCH (13:38)
[2018-08-23] MEDS: ASCORBIC ACID 500 MG TAB PO SCH ×2 (14:19→14:27)
[2018-08-23 16:01] VITALS: TEMP 97.7; O2SAT 96
[2018-08-23] MEDS: AMOXICILLIN/CLAVULANATE 500 MG TAB PO SCH (16:36)
--- NOTE | 2018-08-23 16:44 | Ultrasound Report ---
Study: Soft tissue neck ultrasound HISTORY: Nodule FINDINGS: Nonspecific left submandibular nodule measuring 2.7 x 3.3 x 0.9 cm. No additional nodularit y by ultrasound criteria. Possible additional right submandibular nodule. It is possible these potent ially represent submandibular glands. CT soft tissue neck is recommended for confirmation. IMPRESSION:: Nonspecific well circumscribed bilateral submandibular nodules as discussed. Internal ar chitecture is nonspecific. Although potentially related to adenopathy, possibly of submandibular glan ds are considered. CT of the soft tissue neck is suggested. Electronically signed by: Zachery Vazquez M.D. 08/23/2018 4:42 PM
[2018-08-23] MEDS: OXYCODONE HCL IR 5 MG TAB (IMMEDIATE RELEASE) PO PRN (17:49)
[2018-08-23 18:19] VITALS: BP 162/77
[2018-08-23 18:28] VITALS: PULSE 18
--- NOTE | 2018-08-23 18:42 | Discharge Summary ---
Date of Service August 23, 2018 Admission HPI Per Admitting Provider CHIEF COMPLAINT: Abdominal pain, distention, and mucous, constipation. 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 She was admitted 3 times for same lower back pain and constipation for the compression fractures. Initially, she had a compression fracture at L4-L5 acute versus subacute in May and she was discharged to [facility] for rehabilitation. The patient returned back to ER on 07/13/2018 and stayed until 07/16/2018. By that time, she was found to have a new L3 compression fracture and again conservative therapy was recommended. Again she was in the hospital on 08/07/2018 with the same problem and also seen by spine surgery and pain management. Ortho was not interested in kyphoplasty and she was not a candidate for extensive surgeries and pain management thought she is not a candidate for a pain shot because of her comorbid conditions and being on immunosuppressants. At that time pain medication was adjusted. On CT scan, lumbar spine showed diffuse osteoporosis and she was discharged. She changed her PCP to Jerod. Again she comes back with similar back pain and she thinks her abdomen is distended and some pain in the left groin. Her last bowel movement was about 3 days ago, she is on a bowel regimen. She lives alone, her son lives next door and he helps with food and everything, but she ambulates in the home and able to go to bathroom and come back. Because of this severe pain and constipation, she came back to the ER and a CAT scan of the abdomen was done showing new L1 compression fracture now. The patient is also complaining of mucus filled in the throat and is bringing up blackish phlegm. Denies any fever, chills. No shortness of breath, no chest pain, no headache, no dizziness, no blurred vision, no earaches, no sore throat. Appetite is okay. No dysphagia. Currently, no nausea, no rash, no swelling in the legs. Hemodynamics are stable. Admission Exam Per Admitting Provider GENERAL: The patient is alert and awake, seems to be in pain, but not in acute distress. VITAL SIGNS: Temperature 36.7, pulse 81, respiratory rate 20, blood pressure 147/74, oxygen 97% on room air. HEENT: No pallor, no icterus. Pupils equal, round, reactive to light. NECK: No JVD, no neck masses, no carotid bruit. CARDIOVASCULAR: S1, S2 heard, regular rate and rhythm, no murmur, no gallop. RESPIRATORY SYSTEM: Normal AP diameter. No accessory muscle use. No wheezing, no crackles. ABDOMEN: Soft, bowel sounds present. No distention, mild tenderness in left lower quadrant region. No guarding, no rigidity. CENTRAL NERVOUS SYSTEM: Cranial nerves nonfocal. EXTREMITIES: No edema, no erythema. Principal Diagnosis Lumbar compression fracture: Acute exacerbation of chronic low back pain Constipation ESRD Discharge Exam Constitutional: + ill appearing Eyes: PERRL, conjunctivae normal, anicteric sclerae ENMT: external ear and nose normal, oropharynx normal Neck: trachea midline, no thyromegaly, +L carotid bruit, +small lump in left submandibular area Respiratory: normal respiratory effort, lungs clear to auscultation Cardiovascular: regular, no murmur Gastrointestinal: +BS, + abdomen tender with deep palpation Neurologic: Alert, awake and oriented x3 Lymphatic: no cervical or axillary lymphadenopathy Discharge Data Allergies Allergy/AdvReac Type Severity Reaction Status Date / Time No Known Allergies Allergy Unverified 08/19/18 23:39 Consultations 08/19/18 22:39 ED Decision to Admit Stat 08/20/18 01:47 Consult Case Management - Discharge Planning Routine 08/20/18 08:00 Consult Nephrology Routine 08/20/18 12:03 Consult Orthopedic Surgery Routine Ordered Studies 08/19/18 19:57 CT abd pelvis wo con Stat 08/23/18 10:41 US soft tissue head and neck Routine Study: Soft tissue neck ultrasound HISTORY: Nodule FINDINGS: Nonspecific left submandibular nodule measuring 2.7 x 3.3 x 0.9 cm. No additional nodularity by ultrasound criteria. Possible additional right submandibular nodule. It is possible these potentially represent submandibular glands. CT soft tissue neck is recommended for confirmation. IMPRESSION:: Nonspecific well circumscribed bilateral submandibular nodules as discussed. Internal architecture is nonspecific. Although potentially related to adenopathy, possibly of submandibular glands are considered. CT of the soft tissue neck is suggested. Electronically signed by: Zachery Vazquez M.D. 08/23/2018 4:42 PM Dictated: 08/23/18 1639 Transcribed: 08/23/18 1639 XR chest 1V portable HISTORY: 78 years-old Female SOB acute shortness of breath with acute generalized abdominal pain COMPARISON: Chest CT 08/06/2018, chest radiograph 07/13/2018 TECHNIQUE: Portable AP view of the chest FINDINGS: Cardiac silhouette is enlarged, unchanged. Calcification of the thoracic aortic arch. There is no pneumothorax. Trace pleural effusions persist. No overt pulmonary edema or lobar airspace consolidation. Surgical clips project over the left axillary distribution. Degenerative changes of the shoulders and spine. IMPRESSION: 1. Cardiomegaly without overt pulmonary edema. 2. Unchanged trace pleural effusions. The above report was generated using voice recognition software. It may contain grammatical, syntax or spelling errors. Electronically signed by: Mikey Montgomery M.D. 08/19/2018 8:26 PM Dictated: 08/19/182023 Transcribed: 08/19/[address] WITHOUT CONTRAST CT DOSE: 266.29 mGy.cm HISTORY: Acute generalized abdominal pain abd pain TECHNIQUE: Multiaxial CT images of the abdomen and pelvis were performed without contrast. A dose lowering technique was utilized adhering to the principles of ALARA. COMPARISON STUDY: CT abdomen and pelvis 07/28/2018, MRI lumbar spine 08/03/2017 FINDINGS: Trace pleural effusions with subsegmental bibasilar atelectasis. No pneumatosis or pneumoperitoneum. Imaged inferior cardiac chambers are enlarged with trace pericardial effusion and coronary arterial calcifications noted. Extensive vascular calcifications are noted throughout the abdomen and pelvis. Indeterminate calcifications are again noted in the region of the suprahepatic IVC. Liver is otherwise unremarkable. The spleen, pancreas and adrenal glands appear unremarkable. Mildly atrophic appearance of the kidneys with associated cortical thinning. No renal or ureteral calculi or obstructive uropathy identified. Mild wall thickening of the bladder. Adnexa are unremarkable. There is mild prominence of the endometrium measuring approximately 9 mm. There is no aortic aneurysm or adenopathy identified. There is no small bowel obstruction. Moderate volume of formed stool is noted throughout the colon. Hyperdense material is noted within the appendix suggestive of retained enteric contrast or appendicolith. No CT evidence of acute appendicitis. Prior partial small bowel resection within the abdominal right lower quadrant. No evidence of associated bowel wall thickening. No ascites or mesenteric inflammation identified. There are multiple ventral abdominal wall hernias noted along with diastases recti. Right lateral abdominal wall hernia with diastases of 3.0 cm contains nonobstructed loops of small bowel. Suprapubic ventral abdominal wall hernia contains additional nonobstructive loops of small bowel. There is mild generalized body wall edema. Demineralized appearance of the bones. Degenerative changes of the spine, pelvis and hips. Healed remote fracture of the right inferior pubic ramus. Multiple lumbar spine compression deformities redemonstrated, unchanged at L3, L4 and L5. 30% anterior endplate compression deformity of L1 with 6 mm retropulsion about the superior aspect of the posterior endplate is new from prior study which results in mild central canal stenosis. Compression fracture at L2 demonstrates mild progressive sclerosis of the inferior endplate. IMPRESSION: 1. Moderate constipation without bowel obstruction or focal bowel wall thickening. 2. Diastases recti with multiple ventral abdominal wall hernias, some of which contain nonobstructed loops of small bowel. 3. Prior partial small bowel resection. 4. Mild nonspecific urinary bladder wall thickening. Correlate with urinalysis. 5. Trace pleural effusions with mild bibasilar atelectasis. 6. 30% anterior plate compression deformity at L1 with 5 mm retropulsion is c ompatible with an acute on chronic fracture, new from 08/03/2018. This results in mild central canal stenosis. 7. Additional findings as above. Electronically signed by: Mikey Montgomery M.D. 08/19/2018 9:36 PM Dictated: 08/19/182124 Transcribed: 08/19/182124 Hospital Course (1) Lumbar compression fracture: Possible new 30% L1 compression fracture Ortho consulted-await input and recommendation A small dose of Decadron was given but discontinued as it is not helping and can cause more osteoporosis Increasing pain today We will apply local moist heat as well (2) Acute exacerbation of chronic low back pain: hx osteoporosis with pain osteoporotic fracture of the lumbar and thoracic vertebrae CT abd/pelvis showed 30% anterior plate compression deformity at L1 with 5 mm retropulsion is compatible with an acute on chronic fracture, new from 08/03/2018. On intravenous Dilaudid and lidocaine patch and local diclofenac cream Ortho on board and recommended no surgical intervention Continue physical therapy Continue pain management Continue elastic brace that she may wear with activity. No lifting over 5 pounds. (3) ESRD (end stage renal disease) on dialysis: Continue hemodialysis on MWF Nephrology on board Will get HD today (4) Hx of liver transplant: Continue current medications No infection at this time Normal steroid (5) Phlegm in throat: Increased phlegm in throat in throat Symptoms has been going on since Feb 2017 Denies any dysphagia Small lump felt around the submandibular area (seems to be lymph node) Improvement with the mucinex syrup and neb treatment that help to bring the phlegm out Will add loratadine daily CT chest done showed soft tissue with Normal thyroid and thoracic inlet. No axillary, supraclavicular, mediastinal, or hilar lymphadenopathy U/S of the neck showed nonspecific well circumscribed bilateral submandibular nodule I called the ENT office and schedule an appt with ENT on 08/29 @ 7:50 AM with Levi RAMIREZ (6) HTN (hypertension): Continue current medications (7) Abdominal pain: Constipation Mostly due to opiod CT abd/pelvis showed moderate constipation without bowel obstruction or focal bowel wall thickening. No acute abdominal pathology found Continue laxative prn UTI Urine cx positive for strep species Already on augmentin Stable DVT prophylaxis Subcu heparin CODE STATUS Full Disposition Will discharge to [facility] today after HD Total Time Total Time Spent Total Time Spent (In Minutes): 35 minutes Total Time Includes: Examination of the Patient, Discharge Planning, Medication Reconciliation, Communication With Other Providers and Other Discharge Plan Discharge Items Patient Disposition: Transfer Inpatient Rehab Fac Reason For Visit: ABDOMINAL PAIN Discharge Diagnosis: Lumbar compression fracture: Acute exacerbation of chronic low back pain Constipation ESRD Discharge Goals: Decrease discomfort, Improve disease control, Improve function and Increase independence Activity: Resume your previous activity Activity Comment: A tolerated Non-emergency contact: Primary Care Provider Call non-emergency contact if: you have any medication questions and your temperature is above 101 Follow-up/Referrals: Lucius Stern MD [Primary Care Provider] - Diet: Dialysis Renal Addtl Provider Instructions: Follow up with your primary care provider once discharge from rehab Follow up with nephrology Next hemodialysis schedule for tomorrow Follow up with ENT on 08/29 @ 7:50 Am with Levi RAMIREZ Continue physical and occupational therapy Fall precaution No lifting no more than 5lbs Complete course of antibiotic Continue pain management Please hold next dose of narcotic if pt develops any lethargy or drowsiness Do not drive or operate any machine after taking narcotic Prescriptions: New amoxicillin-pot clavulanate 500-125 mg Tablet 1 tab PO DAILY@1600 8 Days Qty: 8 RF: 0 amoxicillin-pot clavulanate 500-125 mg Tablet 1 tab PO MoWeFr@0800 Qty: 4 RF: 0 ipratropium bromide 0.02 % Solution 0.5 mg inhalation Q6H PRN (Reason: wheezing/ congestion) Qty: 75 RF: 0 guaifenesin 100 mg/5 mL Liquid 10 mg PO Q6H PRN (Reason: congestion) Qty: 120 RF: 0 zolpidem 5 mg Tablet 5 mg PO HS PRN (Reason: sleep) Qty: 10 RF: 0 Continued multivitamin Tablet 1 tab PO QAM RF: 0 atorvastatin 20 mg Tablet 20 mg PO HS RF: 0 ferrous sulfate 325 mg (65 mg iron) Tablet 325 mg PO HS RF: 0 calcium carbonate-vitamin D3 [Calcium 500 + D] 500 mg(1,250mg) -200 unit Tablet 1 tab PO BID RF: 0 nebivolol 10 mg tablet 10 mg PO QAM RF: 0 cholecalciferol (vitamin D3) [Vitamin D3] 2,000 unit Tablet 2,000 unit PO HS RF: 0 everolimus (immunosuppressive) 0.5 mg tablet 2 mg PO BID RF: 0 ascorbic acid (vitamin C) [Vitamin C] 1,000 mg Tablet 1,000 mg PO QDL RF: 0 sennosides-docusate sodium [Senna with Docusate Sodium] 8.6-50 mg Tablet 2 tab PO QAM Qty: 60 RF: 0 lidocaine 5 % Adhesive Patch,Medicated 1 patch transdermal QAM Qty: 30 RF: 0 calcitonin (salmon) 200 unit/actuation spray,non-aerosol 1 spray intranasal UD RF: 0 polyethylene glycol 3350 [Miralax] 17 gram/dose Powder 17 g PO DAILY RF: 0 acetaminophen [Pain Reliever] 500 mg tablet 1,000 mg PO Q4H PRN (Reason: pain) RF: 0 oxycodone 5 mg Tablet 5 - 10 mg PO Q6 PRN (Reason: pain) Qty: 10 RF: 0 diclofenac sodium [Voltaren] 1 % Gel 1 % EXT QID PRN (Reason: pain) Qty: 100 RF: 0 docusate sodium 100 mg Capsule 100 mg PO BID Qty: 60 RF: 0 polyethylene glycol 3350 [Miralax] 17 gram Powder In Packet 17 g PO BID Qty: 30 RF: 0 hydralazine 10 mg tablet 20 mg PO BID Qty: 120 RF: 0 Stand-Alone Forms: Call Back Authorization, [facility] Discharge Orders: Discharge Order (Routine); Ordered 08/23/18 Ordered By: Perla Hood Skilled Items Patient informed of condition?: Yes DNR: No Discharge Level of Care: Acute rehab Communicable Disease: No Discharge Prognosis: Stable Admission Data Admit Date/Time: 08/20/18 00:43 Attending Provider: Perla Hood Admit Provider: Ja Del Cid Primary Care Provider: Lucius Stern Other Providers: Ja Del Cid ; Oziel Hyatt ; [place] Anthony Manabendra Service: Medical Other Interventions: Discharge Summary Assessment (RN) Last Done: 08/23/18 18:24
== END 2018-08-23 18:45 ==
LOC: ED 19:27 → SUATTDRO 08-20 00:43 → 3N 08-20 00:43 → INTOOBSV 08-20 00:43 → 3N 08-20 01:32

== ENCOUNTER 2019-11-04 14:02 | Inpatient (IN) ==
--- NOTE | 2019-11-04 14:28 | Emergency Department Note ---
Impression & Plan Acute lower GI bleeding, Anemia, Bleeding hemorrhoids ED Provider Note NAME: YARELI POE AGE: 79 SEX: F : 1940 ARRIVES VIA: Walk-In INFORMANT: Patient, ED PROVIDER(S): Mandeep Mina DO CHIEF COMPLAINT: Rectal bleeding HPI: The patient is a 79-year-old female who presented to the emergency department for an evaluation of rectal bleeding. The patient has had problems for the last few months with rectal bleeding. She continues to have worsening rectal bleeding over that time. She was seen by her title insurance sales representative but then referred to the emergency department today because of ongoing symptoms. Now the patient is starting to become symptomatic with her anemia. She is noted to have low hemoglobin over the last few draws. She is noticed bright red blood per rectum but also some blood in her stools. She complains of lower abdominal pain as well as rectal pain. She was not seen by her primary care physician recently for the symptoms. She denies having any vomiting but did have some nausea. She has no lower extremity pain but does note some swelling. ROS: See above HPI for pertinent positives & negatives. A total of 10 systems reviewed and were otherwise negative. PAST MEDICAL HISTORY: See Below PAST SURGICAL HISTORY: See Below FAMILY HISTORY: See Below SOCIAL HISTORY: See Below HOME MEDICATIONS: See Below ALLERGIES: See Below VITALS: See Below PHYSICAL EXAMINATION: GENERAL: Patient is awake alert in no acute distress patient is resting comfortably and showing no signs of anxiety EYES: The conjunctivae are clear. The pupils are round and reactive. EARS, NOSE, MOUTH AND THROAT: The nose is without any evidence of any deformity. Mucous membranes are moist. Tongue is midline. NECK: The neck is nontender and supple. RESPIRATORY: Normal respiratory effort is noted there is no evidence of wheezing rhonchi or rales CARDIOVASCULAR: Regular rate and rhythm noted there no murmurs rubs or gallops normal S1 normal S2. GASTROINTESTINAL: The abdomen is soft and nondistended. There is diffuse tenderness to palpation but no guarding rigidity. Rectal exam revealed multiple external hemorrhoids. 1 hemorrhoid was inflamed but no active bleeding was noted. Stool was grossly bloody. MUSCULOSKELETAL/EXTREMITIES: There is no evidence of gross deformity full range of motion is noted in the hips and shoulders. SKIN: There is no obvious evidence of any rash. Trace pedal edema was noted bilaterally. NEUROLOGIC: Patient is awake alert and oriented x3 strength is symmetric patellar reflexes are 2+ bilaterally MEDICAL DECISION MAKING: The patient is a 79-year-old female who has a history of end-stage renal disease who presented to the emergency department for an evaluation of bleeding. The patient has had rectal bleeding over the last few months. The symptoms appear to be worsening especially over the last week. She was sent to the emergency department when she called her primary title insurance sales representative for further advice. The patient does have an area of bleeding around a hemorrhoid but also appears to have significant bleeding by history and has a hemoglobin which continues to be dropping. Given her past medical history and her comorbidities this could explain why the patient is not improving. I discussed her case with the patient's primary gastroenterology group. At this time they do recommend inpatient work-up and treatment. For this reason I discussed her case with the [facility] hospitalist group. Triage Nursing notes reviewed. Prior medical records reviewed Vital Signs: reviewed and remarkable for hypertension Differential diagnosis: Diverticulosis, AVM, coagulopathy, colitis, inflammatory bowel disease, malignancy, Cherri-Wells tear, esophagitis, peptic ulcer disease, variceal bleed, gastritis, epistaxis, fissure, hemorrhoids, as well as other pathologies. ER treatment provided: See below Diagnostics interpreted by me: ECG: EKG was obtained in the emergency department. My interpretation is normal sinus rhythm at [address] segment abnormalities were noted. There is no ectopy. This was compared to a tracing from August 19, 2018. No significant changes were noted. Cardiac Monitoring: An order was placed for continuous cardiac monitoring. The monitor shows a rate of 75 with sinus rhythm. Laboratory studies: As stated above and show below. Imaging studies: See below Consultation(s): 1500: I discussed this case with Sanford who is on-call for the [facility] gastroenterology group. She will evaluate the patient in the emergency department. 1530: I discussed this case with Stephany who is on-call for the [facility] hospitalist group. They will evaluate the patient in the emergency department for further management and disposition. 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, ?CMV S/P cataract extraction and insertion of intraocular lens (Chronic) S/P tubal ligation (Chronic) Family History Other Family history non-contributory Social History Smoking Status: Never smoker Second Hand Exposure: No; Hx Alcohol Use: No Hx Substance Use: No Preferred Language: Maori Communication Ability: Effective Emergency Telecommunications Dispatcher Required: No Beliefs That Will Affect Care: None marital status: Single Current Living Situation: Alone Current Living Situation Comment: with son current occupational status: retired Feels Safe at Home: Yes Allergies Allergies Allergy/AdvReac Type Severity Reaction Status Date / Time No Known Allergies Allergy Verified 11/04/19 15:15 Home Meds Home Medications Medication Instructions Recorded Confirmed calcium carbonate-vitamin D3 1 tab PO BID 06/03/18 11/04/19 [Calcium 500 + D] cholecalciferol (vitamin D3) 2,000 unit PO HS 06/03/18 11/04/19 [Vitamin D3] everolimus (immunosuppressive) 1 mg PO BID 06/03/18 11/04/19 ferrous sulfate 325 mg PO HS 06/03/18 11/04/19 nebivolol 10 mg PO QAM 06/03/18 11/04/19 calcitonin (salmon) 1 spray INTRANASAL DAILY 08/19/18 11/04/19 hydralazine 10 mg PO BID 11/04/19 11/04/19 nut.tx.imp.renal fxn,lac-reduc 1 ea PO BID 11/04/19 11/04/19 [Nepro Carb Steady] oxycodone 5 mg PO Q6 PRN 11/04/19 11/04/19 Previous Rx's Medication Instructions Recorded docusate sodium 100 mg PO BID #60 cap 08/07/18 zolpidem 5 mg PO HS PRN #10 tab 08/23/18 Results & Data (ED) Vital Signs Vital Signs - 24 hr 11/04/19 14:04 11/04/19 14:35 11/04/19 14:49 Temperature 36.7 C Temperature Source Oral Pulse Rate 76 71 69 Respiratory Rate 18 22 24 Respiratory Effort / Characteristics Non-Labored Respiratory Depth Normal Blood Pressure 189/80 H 167/72 H Blood Pressure Mean 116 123 Pulse Oximetry 97 95 Oxygen Delivery Method Room Air Sepsis Recent Fever Within 48 Hours No Sepsis New/Unexplained Change in Mental Status No Sepsis Action Taken by Nursing No Action Required Home Medications Current Medication List: was personally reviewed by me Laboratory Data Attestation: I reviewed the patient's lab results. Result diagrams: 11/04/19 14:24 11/04/19 14:24 Lab Results 11/04/19 11/04/19 11/04/19 Range/Units 14:24 14:24 14:24 WBC 4.46 L (4.8-10.8) K/uL RBC 3.42 L (4.2-5.4) M/uL Hgb 9.9 L (12.0-16.0) g/dL Hct 30.8 L (37-47) % MCV 90.1 (80-100) fL MCH 28.9 (25-34) pg MCHC 32.1 (32-36) g/dL RDW Std Deviation 55.0 H (36.4-46.3) fL RDW Coeff of Darci 16.5 H (11.5-14.5) % Plt Count 119 L (130-400) K/uL MPV 9.6 (7.4-10.4) fL Immature Gran % (Auto) 0.2 % Neut % (Auto) 54.5 % Lymph % (Auto) 34.3 % Mchenry % (Auto) 8.7 % Eos % (Auto) 1.6 % Baso % (Auto) 0.7 % Neut # (Auto) 2.43 (1.4-6.5) K/uL Lymph # (Auto) 1.53 (1.2-3.4) K/uL Mchenry # (Auto) 0.39 (0.11-0.59) K/uL Eos # (Auto) 0.07 (0-0.5) K/uL Baso # (Auto) 0.03 (0-0.2) K/uL Immature Gran # (Auto) 0.01 (0.00-0.02) K/uL PT 11.4 (9.0-12.0) Seconds INR 1.1 (0.9-1.1) APTT 28.5 (21.0-31.0) Seconds PTT Ratio 1.0 Sodium (136-145) mmol/L Potassium (3.5-5.1) mmol/L Chloride (98-107) mmol/L Carbon Dioxide (21-32) mmol/L Anion Gap (3-11) BUN (7-18) mg/dl Creatinine (0.6-1.2) mg/dl Est Cr Clr Drug Dosing ml/min Est GFR ( Amer) Est GFR (Non-Af Amer) BUN/Creatinine Ratio (10-20) Glucose (70-99) mg/dl Calcium (8.5-10.1) mg/dl Total Bilirubin (0.2-1) mg/dl AST (15-37) U/L ALT (12-78) U/L Alkaline Phosphatase (45-117) U/L Troponin I (0-0.045) ng/ml Total Protein (6.4-8.2) gm/dl Albumin (3.4-5.0) gm/dl Globulin (2.5-4.0) gm/dl Albumin/Globulin Ratio (0.9-2) POC Stool Occult Blood (Negative) Blood Type A Positive Antibody Screen NEGATIVE 11/04/19 11/04/19 Range/Units 14:24 15:31 WBC (4.8-10.8) K/uL RBC (4.2-5.4) M/uL Hgb (12.0-16.0) g/dL Hct (37-47) % MCV (80-100) fL MCH (25-34) pg MCHC (32-36) g/dL RDW Std Deviation (36.4-46.3) fL RDW Coeff of Darci (11.5-14.5) % Plt Count (130-400) K/uL MPV (7.4-10.4) fL Immature Gran % (Auto) % Neut % (Auto) % Lymph % (Auto) % Mchenry % (Auto) % Eos % (Auto) % Baso % (Auto) % Neut # (Auto) (1.4-6.5) K/uL Lymph # (Auto) (1.2-3.4) K/uL Mchenry # (Auto) (0.11-0.59) K/uL Eos # (Auto) (0-0.5) K/uL Baso # (Auto) (0-0.2) K/uL Immature Gran # (Auto) (0.00-0.02) K/uL PT (9.0-12.0) Seconds INR (0.9-1.1) APTT (21.0-31.0) Seconds PTT Ratio Sodium 135 L (136-145) mmol/L Potassium 5.0 (3.5-5.1) mmol/L Chloride 100 (98-107) mmol/L Carbon Dioxide 30 (21-32) mmol/L Anion Gap 5.0 (3-11) BUN 24 H (7-18) mg/dl Creatinine 4.15 H (0.6-1.2) mg/dl Est Cr Clr Drug Dosing 7.3 ml/min Est GFR ( Amer) 11.3 Est GFR (Non-Af Amer) 9.7 BUN/Creatinine Ratio 5.8 L (10-20) Glucose 112 H (70-99) mg/dl Calcium 8.9 (8.5-10.1) mg/dl Total Bilirubin 0.5 (0.2-1) mg/dl AST 33 (15-37) U/L ALT 24 (12-78) U/L Alkaline Phosphatase 234 H (45-117) U/L Troponin I < 0.015 (0-0.045) ng/ml Total Protein 7.7 (6.4-8.2) gm/dl Albumin 3.1 L (3.4-5.0) gm/dl Globulin 4.6 H (2.5-4.0) gm/dl Albumin/Globulin Ratio 0.7 L (0.9-2) POC Stool Occult Blood Positive A (Negative) Blood Type Antibody Screen Imaging Data Radiologist's Impression: KUB CLINICAL HISTORY: GI bleed. COMPARISON STUDY: CT of the abdomen and pelvis April 29, 2019. FINDINGS: Bowel gas pattern is normal. Extensive vascular calcification is noted. No urinary calculi are identified. Old lumbar spine compression deformities are again noted. These are better depicted on prior CT. Elevation of the right hemidiaphragm is unchanged. IMPRESSION: No evidence for a bowel obstruction. ACT 112: Negative or not required by law. Electronically signed by: Milton Calloway M.D. 11/04/2019 3:41 PM Dictated: 11/04/19 1537 Transcribed: 11/04/191536 XR chest 1V portable HISTORY: 79 years-old Female weakness acute weakness COMPARISON: Chest radiograph 08/19/2018 TECHNIQUE: Portable AP view of the chest FINDINGS: Cardiac silhouette is enlarged, unchanged. Mild right hemidiaphragmatic elevation. Calcified plaque of the thoracic aortic arch. No pneumothorax, pleural effusion, overt pulmonary edema or airspace consolidation typical for pneumonia. Surgical clips are noted within the left axilla and left upper extremity. Degenerative changes of the shoulders and spine. IMPRESSION: Cardiomegaly without acute process. ACT 112: Negative or not required by law. The above report was generated using voice recognition software. It may contain grammatical, syntax or spelling errors. Electronically signed by: Mikey Montgomery M.D. 11/04/2019 3:41 PM Dictated: 11/04/191534 Transcribed: 11/04/191534 Blood Pressure Blood Pressure Findings: Elevated blood pressure Blood Pressure Disposition: further management by hospitalist Discharge Plan Visit Data Chief Complaint: Referred by Doctor Stated Complaint: RECTAL BLEEDING ED Provider: Mandeep Mina Discharge Problem: Acute lower GI bleeding, Anemia, Bleeding hemorrhoids Patient Disposition: Being Evaluated by Hospitalist Condition: Good Forms Stand Alone Forms: My [facility] [employer] Prescriptions Prescriptions: No Action ferrous sulfate 325 mg (65 mg iron) Tablet 325 mg PO HS RF: 0 calcium carbonate-vitamin D3 [Calcium 500 + D] 500 mg(1,250mg) -200 unit Tablet 1 tab PO BID RF: 0 nebivolol 10 mg tablet 10 mg PO QAM RF: 0 cholecalciferol (vitamin D3) [Vitamin D3] 2,000 unit Tablet 2,000 unit PO HS RF: 0 everolimus (immunosuppressive) 0.5 mg tablet 1 mg PO BID RF: 0 calcitonin (salmon) 200 unit/actuation spray,non-aerosol 1 spray intranasal DAILY RF: 0 zolpidem 5 mg Tablet 5 mg PO HS PRN (Reason: sleep) Qty: 10 RF: 0 Nepro Carb Steady 0.08 gram-1.8 kcal/mL Liquid 1 ea PO BID RF: 0 hydralazine 10 mg tablet 10 mg PO BID RF: 0 oxycodone 5 mg tablet 5 mg PO Q6 PRN (Reason: pain) RF: 0 docusate sodium 100 mg Capsule 100 mg PO BID Qty: 60 RF: 0 Referrals Referrals: Lucius Stern MD [Primary Care Provider] - Discharge Problem: Anemia Qualifiers: Anemia type: unspecified type Qualified Code(s): D64.9 - Anemia, unspecified
[2019-11-04 14:33] LABS: Basophils # (auto) 0.03 K/uL (0-0.2); Basophils % (auto) 0.7 %; Eosinophils # (auto) 0.07 K/uL (0-0.5); Eosinophils % (auto) 1.6 %; Hematocrit (blood only) 30.8 % (37-47); Hemoglobin 9.9 g/dL (12.0-16.0); Immature Granulocytes # (auto) 0.01 K/uL (0.00-0.02); Immature Granulocytes % (auto) 0.2 %; Lymphocytes # (auto) 1.53 K/uL (1.2-3.4); Lymphocytes % (auto) 34.3 %; Mean Corpuscular Hemoglobin 28.9 pg (25-34); Mean Corpuscular Hgb Conc 32.1 g/dL (32-36); Mean Corpuscular Volume 90.1 fL (80-100); Mean Platelet Volume 9.6 fL (7.4-10.4); Monocytes # (auto) 0.39 K/uL (0.11-0.59); Monocytes % (auto) 8.7 %; Neutrophils # (auto) 2.43 K/uL (1.4-6.5); Neutrophils % (auto) 54.5 %; Platelet Count 119 K/uL (130-400); RDW Coefficient of Variation 16.5 % (11.5-14.5); Red Blood Count 3.42 M/uL (4.2-5.4); White Blood Count 4.46 K/uL (4.8-10.8)
[2019-11-04 14:44] LABS: INR 1.1 (0.9-1.1); Partial Thromboplastin Time 28.5 Seconds (21.0-31.0); Prothrombin Time 11.4 Seconds (9.0-12.0)
[2019-11-04 14:49] LABS: Alanine Aminotransferase 24 U/L (12-78); Albumin Level 3.1 gm/dl (3.4-5.0); BUN Creatinine Ratio 5.8 (10-20); Blood Urea Nitrogen 24 mg/dl (7-18); Calcium 8.9 mg/dl (8.5-10.1); Carbon Dioxide 30 mmol/L (21-32); Chloride 100 mmol/L (98-107); Creatinine Clr Calc Pharmacy 7.3 ml/min; Est GFR (African American) 11.3; Est GFR (Non-African American) 9.7; Glucose 112 mg/dl (70-99); Sodium 135 mmol/L (136-145)
[2019-11-04 14:54] LABS: Albumin Globulin Ratio 0.7 (0.9-2); Alkaline Phosphatase 234 U/L (45-117); Aspartate Aminotransferase 33 U/L (15-37); Bilirubin,Total 0.5 mg/dl (0.2-1); Globulin 4.6 gm/dl (2.5-4.0); Total Protein 7.7 gm/dl (6.4-8.2); Troponin I < 0.015 ng/ml (0-0.045)
--- NOTE | 2019-11-04 15:42 | XRay Report ---
KUB CLINICAL HISTORY: GI bleed. COMPARISON STUDY: CT of the abdomen and pelvis April 29, 2019. FINDINGS: Bowel gas pattern is normal. Extensive vascular calcification is noted. No urinary calculi are identified. Old lumbar spine compression deformities are again noted. These are better depicted o n prior CT. Elevation of the right hemidiaphragm is unchanged. IMPRESSION: No evidence for a bowel obstruction. ACT 112: Negative or not required by law. Electronically signed by: Milton Calloway M.D. 11/04/2019 3:41 PM
--- NOTE | 2019-11-04 15:42 | XRay Report ---
XR chest 1V portable HISTORY: 79 years-old Female weakness acute weakness COMPARISON: Chest radiograph 08/19/2018 TECHNIQUE: Portable AP view of the chest FINDINGS: Cardiac silhouette is enlarged, unchanged. Mild right hemidiaphragmatic elevation. Calcified plaque o f the thoracic aortic arch. No pneumothorax, pleural effusion, overt pulmonary edema or airspace cons olidation typical for pneumonia. Surgical clips are noted within the left axilla and left upper extre mity. Degenerative changes of the shoulders and spine. IMPRESSION: Cardiomegaly without acute process. ACT 112: Negative or not required by law. The above report was generated using voice recognition software. It may contain grammatical, syntax o r spelling errors. Electronically signed by: Mikey Montgomery M.D. 11/04/2019 3:41 PM
--- NOTE | 2019-11-04 15:45 | Gastrointestinal Consultation ---
Date of Consultation November 04, 2019 Assessment & Plan (1) Acute lower GI bleeding: (2) Anemia: Pt is a 79 y/o female presented with rectal bleeding and anemia. On exam abd soft but tender diffusely, noted actively bleeding hemorrhoids. She has hx of liver transplant x 2 for AIH, second transplant done for infection; renal failure on Prograf currently on Hemodialysis and Everolimus for transplant med. - Obtain CT abd/pelvis - Monitor H/H and transfuse prn - Hydrocortisone cream AR BID for hemorrhoids - EGD/Colonoscopy tomorrow with Dr. Mckoy to r/o GI occult sources of anemia. She can have CL diet today, NPO after midnight. Bowel prep ordered - Pls consult nephrology to assist with continuing hemodialysis while inpt. Supervising Physician Co-Signing Physician Notes I performed a history and physical examination of the patient today, including specifically on physical exam - soft abdomen. I have discussed the patient's management with the advanced practitioner. Please refer to the nurse prac titioner's note for the documented findings and plan of care. EGD/colonoscopy tomorrow. History of Present Illness Reason for Consultation: Rectal bleeding Requesting Physician: Dr. Mandeep Mina Attending Physician: Dr. 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 She reports initially only seeing drops of red blood per rectum, but nowadays she would see toilet water turning red with blood after bowel movements. She denies black tarry stools. She has mild nausea today, denies weight loss. Also admits to having some diffuse abd pain. She denies uses of ASA or anticoagulants. She denies uses of NSAIDs. Labs reviewed - H/H 9.9/30.8. Baseline Hgb around 11. PT/INR 11/1.1. BUN/Cr 24/4.2. LFTs normal except mildly elevated alk phos in 200s. KUB, CXR obtained, results pending Last EGD and colonoscopy done in [place] 5 yrs ago per her report - normal results. She denies family hx of colorectal ca. Allergies Allergy/AdvReac Type Severity Reaction Status Date / Time No Known Allergies Allergy Verified 11/04/19 15:15 Home Medications Home Medications Medication Instructions Recorded Confirmed Type calcium carbonate-vitamin D3 1 tab PO BID 06/03/18 11/04/19 History [Calcium 500 + D] cholecalciferol (vitamin D3) 2,000 unit PO HS 06/03/18 11/04/19 History [Vitamin D3] everolimus (immunosuppressive) 1 mg PO BID 06/03/18 11/04/19 History ferrous sulfate 325 mg PO HS 06/03/18 11/04/19 History nebivolol 10 mg PO QAM 06/03/18 11/04/19 History docusate sodium 100 mg PO BID #60 cap 08/07/18 11/04/19 Rx zolpidem 5 mg PO HS PRN #10 tab 08/23/18 11/04/19 Rx hydralazine 10 mg PO BID 11/04/19 11/04/19 History nut.tx.imp.renal fxn,lac-reduc 1 ea PO BID 11/04/19 11/04/19 History [Nepro Carb Steady] oxycodone 5 mg PO Q6 PRN 11/04/19 11/04/19 History Patient History Medical History Anemia (Chronic) History of renal dialysis HLD (hyperlipidemia) (Chronic) HTN (hypertension) (Chronic) Hx of compression fracture of spine Osteoporosis (Chronic) Surgical History H/O detached retina repair (Chronic) 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, ?CMV S/P cataract extraction and insertion of intraocular lens (Chronic) S/P tubal ligation (Chronic) Social History Smoking Status: Never smoker Second Hand Exposure: No; Hx Alcohol Use: No Hx Substance Use: No Preferred Language: Jamaican Communication Ability: Effective Crew Boss Required: No Beliefs That Will Affect Care: None marital status: Single Current Living Situation: Alone Current Living Situation Comment: with son current occupational status: retired Feels Safe at Home: Yes Review of Systems Review of Systems: All systems reviewed & are unremarkable except as noted in HPI & below Physical Exam Constitutional: WD/WN, vitals as above well groomed, cooperative and comfortable Eyes: PERRL, conjunctivae normal, anicteric sclerae ENMT: external ear and nose normal, oropharynx normal Respiratory: normal respiratory effort, lungs clear to auscultation Cardiovascular: RRR, no murmur, no edema Gastrointestinal (Abdomen): Inspection/Auscultation: + hypoactive bowel sounds Percussion/Palpation: + abdomen tender and abdomen soft RECTAL: external hemorrhoids noted, one hemorrhoids with oozing blood noted. Small int hemorrhoid felt, no signs of other masses Skin: no rashes, warm and dry no jaundice Psychiatric: A+Ox3, euthymic affect Lymphatic: no lymphedema Results & Data ([facility]) Vital Signs (Past 12 Hours) Vital Signs Temp Pulse Resp BP Pulse Ox 11/04/19 14:49 69 24 11/04/19 14:35 71 22 167/72 H 95 11/04/19 14:04 36.7 C 76 18 189/80 H 97 (1) Anemia Anemia type: unspecified type Qualified Code(s): D64.9 - Anemia, unspecified
--- NOTE | 2019-11-04 15:47 | History & Physical Report ---
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 -Rectal exam with external hemorrhoids bleeding, one internal hemorrhoid palpated as well. Hydrocortisone cream LA twice daily for hemorrhoids -Discussed with GI service, who will plan for EGD/colonoscopy tomorrow with Dr. Mckoy to r/o GI occult sources of anemia -Clear liquids this evening with bowel prep, n.p.o. after midnight (2) Symptomatic anemia: Hgb 9.9 (baseline ~11), plt of 119 -Consented, type and cross with 2 units PRBCs held -Repeat H&H at 2100 and in a.m. (3) Electrocardiogram showing T wave abnormalities: EKG with T wave flattening in anterior leads that are new -No chest pain and initial troponin within normal limits. Possibly due to demand ischemia with anemia -Monitor on telemetry, trend troponin, TTE in setting of EKG changes, systolic murmur noted on exam (4) Autoimmune hepatitis: (5) Hx of liver transplant: Hx of liver transplant x 2 for AIH, second transplant done for infection -Continue Everolimus (6) ESRD (end stage renal disease) on dialysis: MWF HD. Routine nephrology consult for HD plan tomorrow after colonoscopy and EGD (7) HTN (hypertension): Continue hydralazine, nebivolol (8) Insomnia: Ambien HS as needed DVT Ppx: SCDs Code status: FULL PCP: Leena Dispo: Admit to PCU. Plan to return home once medically stable. Patient seen in collaboration with Dr. Cobb. Please see addendum. 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 Bleeding started out as small red droplets on underwear but has progressed to wearing pad with paper towel and needing to change every 2 hours. Endorses some lightheadedness and mild nausea with vague intermittent lower abdominal pain. No melena. Denies fever, chills, headache, confusion, chest pain, SOB, vomiting, dysuria or constipation. Use of NSAIDs. Not on blood thinners. Allergies Allergy/AdvReac Type Severity Reaction Status Date / Time No Known Allergies Allergy Verified 11/04/19 15:15 Home Medications Home Medications Medication Instructions Recorded Confirmed Type calcium carbonate-vitamin D3 1 tab PO BID 06/03/18 11/04/19 History [Calcium 500 + D] cholecalciferol (vitamin D3) 2,000 unit PO HS 06/03/18 11/04/19 History [Vitamin D3] everolimus (immunosuppressive) 1 mg PO BID 06/03/18 11/04/19 History ferrous sulfate 325 mg PO HS 06/03/18 11/04/19 History nebivolol 10 mg PO QAM 06/03/18 11/04/19 History docusate sodium 100 mg PO BID #60 cap 08/07/18 11/04/19 Rx zolpidem 5 mg PO HS PRN #10 tab 08/23/18 11/04/19 Rx hydralazine 10 mg PO BID 11/04/19 11/04/19 History nut.tx.imp.renal fxn,lac-reduc 1 ea PO BID 11/04/19 11/04/19 History [[place]ro Carb Steady] oxycodone 5 mg PO Q6 PRN 11/04/19 11/04/19 History Past Med/Surg History Medical History Anemia (Chronic) History of renal dialysis HLD (hyperlipidemia) (Chronic) HTN (hypertension) (Chronic) Hx of compression fracture of spine Osteoporosis (Chronic) Surgical History H/O detached retina repair (Chronic) 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, ?CMV S/P cataract extraction and insertion of intraocular lens (Chronic) S/P tubal ligation (Chronic) Social History Smoking Status: Never smoker Second Hand Exposure: No; Do You Dip or Chew Tobacco: No; Tobacco Cessation Education Requested by Patient: No Hx Alcohol Use: No Hx Substance Use: No Preferred Language: Luxembourgish Communication Ability: Effective Keg Filler Required: No Beliefs That Will Affect Care: None marital status: Single Current Living Situation: Alone Current Living Situation Comment: son lives next to patient current occupational status: retired Other Information That Helps Us Care for You: No Feels Safe at Home: Yes Review of Systems Review of Systems: At least ten systems reviewed and negative except as noted in the HPI. Physical Exam Physical Exam: General Appearance: WD/WN, vitals as above, NAD, sitting up in bed, pleasant, conversing easily Head: normocephalic, atraumatic Eyes: normal inspection, PERRL, conjunctivae normal, anicteric sclerae ENT: external ear and nose normal, oropharynx normal Neck: trachea midline, no thyromegaly, normal visual inspection Respiratory: normal respiratory effort, crackles at right base but otherwise lungs clear to auscultation, no wheeze, rales, rhonchi. Normal insp/exp effort, no accessory muscle use Cardiovascular: regular rate, rhythm, + systolic murmur, normal peripheral pulses, no BLE edema. Vessels: no JVD or carotid bruit Chest: normal inspection of chest Abdomen/GI: normal bowel sounds, soft, diffusely TTP , no hepatosplenomegaly Extremities/Musculoskeletal: no cyanosis or clubbing, extremities motor strength 5/5 Neurologic: PERRL, EOMI, accommodation nl, no face palsy, no dysarthria, CN's II-XI intact bilaterally and moves all extremities Psychiatric: A+Ox3, euthymic affect Skin: no rashes, normal color, warm/dry Results & Data Results & Data ([facility]) Vital Signs (Past 12 Hours) Vital Signs Temp Pulse Resp BP Pulse Ox 11/04/19 14:49 69 24 11/04/19 14:35 71 22 167/72 H 95 11/04/19 14:04 36.7 C 76 18 189/80 H 97 Laboratory Results Short CBC 11/04/19 Range/Units 14:24 WBC 4.46 L (4.8-10.8) K/uL Hgb 9.9 L (12.0-16.0) g/dL Hct 30.8 L (37-47) % Plt Count 119 L (130-400) K/uL BMP 11/04/19 14:24 Sodium 135 L Potassium 5.0 Chloride 100 Carbon Dioxide 30 BUN 24 H Creatinine 4.15 H Glucose 112 H Calcium 8.9 Cardiac Enzymes 11/04/19 Range/Units 14:24 Troponin I < 0.015 (0-0.045) ng/ml Liver Function 11/04/19 Range/Units 14:24 Total Bilirubin 0.5 (0.2-1) mg/dl AST 33 (15-37) U/L ALT 24 (12-78) U/L Alkaline Phosphatase 234 H (45-117) U/L Albumin 3.1 L (3.4-5.0) gm/dl Diagnostic Findings CXR: IMPRESSION: Cardiomegaly without acute process. KUB: IMPRESSION: No evidence for a bowel obstruction. Code Status & VTE Plan VTE Prophylaxis Plan VTE Prophylaxis will be ordered: Yes Supervising Physician Co-Signing Physician Notes Patient is a 79-year-old female with history of autoimmune hepatitis S/P liver transplant, CKD stage V on hemodialysis, GERD, hypertension, insomnia and other medical problems presents with history of ongoing bright red blood per rectum for about 3 months which is gradually worsened lately. She reports having hemorrhoids. She denies any rectal pain with bowel movement. She reports having abdominal tenderness but otherwise no abdominal pain. Also reports dizziness, nausea. Denies any NSAIDs, blood thinner use. Her hemoglobin is noted to be 9.9 today platelets 119. Sodium 135. Blood pressure slightly elevated. On exam patient is moderately built and nourished, no apparent distress, normocephalic atraumatic, lungs--normal breath sounds, left basal crackles, S1-S2,+ systolic murmur, trace pedal edema, abdomen soft, mild generalized tenderness, no guarding or rigidity, alert awake oriented, no focal deficits grossly. Patient is admitted for management of acute lower GI bleeding. Avoid anticoagulation, NSAIDs. N.p.o. after midnight for EGD, colonoscopy tomorrow. IV PPI twice daily. Monitor H&H, transfuse PRBCs as needed. Gentle IV fluids. CT abdomen showed small amount of pneumobilia, otherwise no acute findings. Appreciate GI input. Noted abnormal EKG with T wave changes in anterior leads. Likely demand due to anemia. Patient denies chest pain. Will trend cardiac enzymes, check resting echo, repeat EKG in the morning. Consulted nephrology to help with dialysis. Monitor volume status. Monitor platelets. I personally reviewed the record. Patient is interviewed and examined at bedside. Patient's care is coordinated with Stephany Echevarria PA-C. Please refer to the documentation above for details of patient's presentation and for discussion of other issues. (1) HTN (hypertension) Hypertension type: essential hypertension Qualified Code(s): I10 - Essential (primary) hypertension
[2019-11-04] MEDS ORDERED: HYDROCORTISONE 2.5% CR 30 GM TUBE EXT PRN (16:20)
[2019-11-04] MEDS ORDERED: ONDANSETRON INJ 2 MG/ML 2 ML VIAL IV PRN ×2 (16:44→17:39)
[2019-11-04] MEDS ORDERED: IOVERSOL 100ml IV PRN (17:12)
--- NOTE | 2019-11-04 17:33 | CT Scan Report ---
ABDOMEN AND PELVIS CT WITH IV CONTRAST CT DOSE: 227.81 mGy.cm HISTORY: Generalized abdominal pain. TECHNIQUE: Multiaxial CT images of the abdomen and pelvis were performed following the use of intrave nous contrast. A dose lowering technique was utilized adhering to the principles of ALARA. COMPARISON STUDY: Abdomen and pelvis CT 04/29/2019. FINDINGS: The lung bases are essentially clear. No pneumoperitoneum. No pneumatosis. Old, healed righ t pubic ring fracture. No significant change in the multiple old compression deformities seen through out the lumbar spine. This is most pronounced at L1. The heart remains mildly enlarged. Mild body wal l edema. A small fat-containing periumbilical hernia, small fat-containing lower midline ventral rebel ia, and a right lateral abdominal wall hernia containing a portion of the cecum and fat remain unchan ged. The bladder, uterus, bilateral adnexa are within normal limits. Prior small bowel anastomosis wi thin the right mid abdomen. No bowel wall thickening or obstruction. Normal appendix. Right ovarian v ein varicosities remain unchanged. Normal caliber abdominal aorta with no evidence for dissection. No retroperitoneal lymphadenopathy. Postoperative changes consistent with prior liver transplant. The m ain portal vein is patent. There is a small amount of pneumobilia. No hepatic or splenic masses. The adrenal glands and pancreas are unremarkable. Bilateral renal atrophy is again noted. No hydronephros is. Heavily calcified hepatic artery is again noted. IMPRESSION: 1. No bowel wall thickening or obstruction. 2. Postoperative changes of prior liver transplant. There is a small amount of pneumobilia. This is n ew compared the prior study. 3. Normal appendix. 4. No change in the right ovarian varicosities. 5. Stable abdominal wall hernias. 6. Stable chronic compression fractures within the lumbar spine. ACT 112: Negative or not required by law. Electronically signed by: Nino Leggett M.D. 11/04/2019 5:32 PM
[2019-11-04] MEDS ORDERED: SODIUM CHLORIDE 0.9% 250 ML IV PRN (17:39)
[2019-11-04] MEDS: LAVAGE SOLUTION 4000ML PO SCH ×6 (19:28→23:09)
[2019-11-04] MEDS: HydrALAZINE 10 MG TAB PO SCH (19:30)
[2019-11-04] MEDS: METOPROLOL TARTRATE 25 MG TAB PO SCH (19:31)
[2019-11-04] MEDS ORDERED: Nursing to Pharmacy Communication SCH (19:45)
[2019-11-04] MEDS ORDERED: SODIUM CHLORIDE 0.9% 1000ML 1,000 ML IV SCH (20:00)
[2019-11-04] MEDS: CALCIUM 600MG + VIT D 400 IU TAB PO SCH (20:44)
[2019-11-04] MEDS: FERROUS SULFATE 325 MG TAB PO SCH (20:44)
[2019-11-04] MEDS: CHOLECALCIFEROL 1,000 UNITS 25 MCG TAB PO SCH (20:45)
[2019-11-04] MEDS: EVEROLIMUS 0.5 MG PO SCH (20:46)
[2019-11-04 20:51] LABS: Hematocrit (blood only) 31.3 % (37-47)
[2019-11-04] MEDS ORDERED: PANTOprazole 40 MG TAB PO SCH (21:00)
[2019-11-04] MEDS ORDERED: NUT TX IMP RENAL FXN LAC REDUC PO SCH (21:00)
[2019-11-05] MEDS: ZOLPIDEM TARTRATE 5 MG TAB PO PRN ×2 (00:40→23:49)
[2019-11-05] MEDS: LAVAGE SOLUTION 4000ML PO SCH ×23 (01:52→14:17)
[2019-11-05 02:11] LABS: Hematocrit (blood only) 27.6 % (37-47); Hemoglobin 9.1 g/dL (12.0-16.0); Mean Corpuscular Hemoglobin 29.2 pg (25-34); Mean Corpuscular Volume 88.5 fL (80-100); Mean Platelet Volume 9.7 fL (7.4-10.4); Platelet Count 111 K/uL (130-400); RDW Coefficient of Variation 16.7 % (11.5-14.5); RDW Standard Deviation 53.9 fL (36.4-46.3); Red Blood Count 3.12 M/uL (4.2-5.4); White Blood Count 4.55 K/uL (4.8-10.8)
[2019-11-05 02:29] LABS: Alanine Aminotransferase 21 U/L (12-78); Albumin Level 2.7 gm/dl (3.4-5.0); Aspartate Aminotransferase 26 U/L (15-37); BUN Creatinine Ratio 6.1 (10-20); Blood Urea Nitrogen 26 mg/dl (7-18); Calcium 8.3 mg/dl (8.5-10.1); Carbon Dioxide 25 mmol/L (21-32); Chloride 103 mmol/L (98-107); Est GFR (African American) 10.7; Est GFR (Non-African American) 9.3; Glucose 80 mg/dl (70-99); Potassium 5.5 mmol/L (3.5-5.1); Sodium 136 mmol/L (136-145)
[2019-11-05 02:34] LABS: Albumin Globulin Ratio 0.7 (0.9-2); Alkaline Phosphatase 208 U/L (45-117); Bilirubin,Total 0.5 mg/dl (0.2-1); Globulin 4.1 gm/dl (2.5-4.0); Total Protein 6.8 gm/dl (6.4-8.2); Troponin I < 0.015 ng/ml (0-0.045)
[2019-11-05] MEDS: CALCIUM 600MG + VIT D 400 IU TAB PO SCH ×2 (07:46→21:05)
[2019-11-05] MEDS: HydrALAZINE 10 MG TAB PO SCH ×2 (07:46→21:04)
[2019-11-05] MEDS: METOPROLOL TARTRATE 25 MG TAB PO SCH ×2 (07:46→21:05)
[2019-11-05] MEDS: EVEROLIMUS 0.5 MG PO SCH ×2 (07:47→21:07)
--- NOTE | 2019-11-05 08:50 | Gastroenterology Progress Note ---
Date of Service November 05, 2019 Assessment & Plan (1) Acute lower GI bleeding: (2) Anemia: Pt is a 79 y/o female presented with rectal bleeding and anemia. On exam abd soft but tender diffusely, noted actively bleeding hemorrhoids. She has hx of liver transplant x 2 for AIH, second transplant done for infection; renal failure on Prograf currently on Hemodialysis and Everolimus for transplant med. No longer having abd pain, n/v today. CT abd/pelvis w/o acute pathology to explain abd pain. She is prepped and been NPO for EGD/Colonoscopy today. - EGD/Colonoscopy today by Dr. Mckoy to r/o GI occult sources of anemia. - Monitor H/H and transfuse prn - Hydrocortisone cream [place] BID for hemorrhoids - Nephrology to assist with continuing hemodialysis while inpt. Admission and Anticipated Discharge Date Admission Date: November 04, 2019 Supervising Physician Co-Signing Physician Notes I performed a history and physical examination of the patient today, including specifically on physical exam - soft abdomen. I have discussed the patient's management with the advanced practitioner. Please refer to the nurse practitioner's note for the documented findings and plan of care. EGD/Colonoscopy today Subjective Pt had been NPO, completed bowel prep and scheduled for EGD/Colonoscopy today. She denies any abd pain, n/v. Review of Systems Review of Systems: All systems reviewed & are unremarkable except as noted in HPI & below Physical Exam Constitutional: WD/WN, vitals as above well groomed, cooperative and comfortable Eyes: PERRL, conjunctivae normal, anicteric sclerae ENMT: external ear and nose normal, oropharynx normal Respiratory: normal respiratory effort, lungs clear to auscultation Cardiovascular: RRR, no murmur, no edema Gastrointestinal (Abdomen): normal bowel sounds, soft, nontender, no hepatosplenomegaly Skin: no rashes, warm and dry no jaundice Psychiatric: A+Ox3, euthymic affect Lymphatic: no lymphedema Results & Data ([facility]) Vital Signs (Past 12 Hours) Vital Signs Temp Pulse Pulse Pulse Resp BP Pulse Ox 11/05/19 07:44 36.5 C 70 16 167/63 H 95 11/05/19 03:52 36.8 C 72 16 149/71 H 95 11/04/19 23:58 86 11/04/19 23:36 36.6 C 71 16 168/69 H 97 11/04/19 22:41 74 177/76 H (1) Anemia Anemia type: unspecified type Qualified Code(s): D64.9 - Anemia, unspecified
[2019-11-05] MEDS: PANTOprazole 40 MG in SYRINGE 0 ML IV SCH ×2 (09:39→21:06)
[2019-11-05] MEDS ORDERED: EPOETIN ALFA 20,000 UNITS/ML VIAL IV ONE (10:05)
[2019-11-05] MEDS ORDERED: IRON SUCROSE 200 MG in 0.9 % SODIUM CHLORIDE 100 ML IV SCH (10:15)
--- NOTE | 2019-11-05 11:58 | Electrocardiogram Report ---
Test Reason : Blood Pressure : / mmHG Vent. Rate : 070 BPM Atrial Rate : 070 BPM P-R Int : 160 ms QRS Dur : 092 ms QT Int : 426 ms P-R-T Axes : 021 -10 027 degrees QTc Int : 460 ms Normal sinus rhythm T wave abnormality, consider anterior ischemia Abnormal ECG When compared with ECG of 19-AUG-2018 20:25, T wave abnormality now present Confirmed by Mandeep Oshea ([id number]) on 11/05/2019 11:57:38 AM Referred By: REFERRED SELF Confirmed By:Mandeep Oshea
--- NOTE | 2019-11-05 12:41 | Electrocardiogram Report ---
Test Reason : Blood Pressure : / mmHG Vent. Rate : 073 BPM Atrial Rate : 073 BPM P-R Int : 174 ms QRS Dur : 088 ms QT Int : 422 ms P-R-T Axes : 042 016 049 degrees QTc Int : 464 ms Normal sinus rhythm Poor R wave progression, consider anterior WI vs. lead placement vs. LVH Abnormal ECG When compared with ECG of 04-NOV-2019 14:32, (unconfirmed) No significant change was found Confirmed by Mandeep Oshea ([id number]) on 11/05/2019 12:40:55 PM Referred By: REFERRED SELF Confirmed By:Mandeep Oshea
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
--- NOTE | 2019-11-05 12:46 | Anesthesiology Consultation ---
Date of Service November 05, 2019 Assessment & Plan Chart Review Chart Review: Acceptable Risk for Surgery Consults Requested none ASA ASA4 Proposed Anesthesia Anesthesia Type: MAC Risk / Benefits Reviewed With: PT / POA / Parent / Guardian, Accepts Plan and Informed Consent Obtained History Surgery Operation Date: 11/05/19 14:40 Proposed Procedures p Colonoscopy EGD Dr. Mckoy - Shelbi Mckoy MD Height/Weight Height: 4 ft 10 in Weight: 47.2 kg Allergies Allergy/AdvReac Type Severity Reaction Status Date / Time No Known Allergies Allergy Verified 11/04/19 15:15 Medications Home Medications Medication Instructions Recorded Confirmed Last Taken calcium carbonate-vitamin D3 1 tab PO BID 06/03/18 11/04/19 11/04/19 08:00 [Calcium 500 + D] cholecalciferol (vitamin D3) 2,000 unit PO HS 06/03/18 11/04/19 11/03/19 [Vitamin D3] everolimus (immunosuppressive) 1 mg PO BID 06/03/18 11/04/19 11/04/19 08:00 ferrous sulfate 325 mg PO HS 06/03/18 11/04/19 11/03/19 nebivolol 10 mg PO QAM 06/03/18 11/04/19 11/04/19 docusate sodium 100 mg PO BID #60 cap 08/07/18 11/04/19 11/04/19 08:00 zolpidem 5 mg PO HS PRN #10 tab 08/23/18 11/04/19 Unknown hydralazine 10 mg PO BID 11/04/19 11/04/19 11/04/19 08:00 nut.tx.imp.renal fxn,lac-reduc 1 ea PO BID 11/04/19 11/04/19 Unknown [Nepro Carb Steady] oxycodone 5 mg PO Q6 PRN 11/04/19 11/04/19 Unknown Active Medications Generic Name Dose Route Start Last Admin Trade Name Freq PRN Reason Stop Dose Admin Everolimus 2 ea 11/04/19 21:00 11/05/19 07:47 Zortress PO 12/04/19 20:59 2 ea BID DAGOBERTO Administration Ferrous Sulfate 325 mg 11/04/19 21:00 11/04/19 20:44 Feosol PO 12/04/19 20:59 325 mg HS DAGOBERTO Administration Hydralazine HCl 10 mg 11/04/19 21:00 11/05/19 07:46 Apresoline PO 12/04/19 20:59 10 mg BID DAGBOERTO Administration Pantoprazole Sodium 40 mg/ 10 mls @ 5 mls/min 11/05/19 09:00 11/05/19 09:39 Syringe IV 12/05/19 08:59 5 mls/min BID DAGOBERTO Administration Metoprolol Tartrate 25 mg 11/04/19 21:00 11/05/19 07:46 Lopressor PO 12/04/19 20:59 25 mg BID DAGOBERTO Administration Protocol Multivitamins/Minerals 1 tab 11/04/19 21:00 11/05/19 07:46 Caltrate Plus PO 12/04/19 20:59 1 tab BID DAGOBERTO Administration Pantoprazole Sodium 40 mg 11/04/19 21:00 11/04/19 20:45 Protonix PO 12/04/19 20:59 40 mg BID DAGOBERTO Administration Polyethylene Glycol/Electrolytes 1 dose 11/04/19 18:30 11/05/19 13:32 Golytely PO 12/04/19 18:29 Not Given Q30M DAGOBERTO Vitamin D 2,000 units 11/04/19 21:00 11/04/19 20:45 Vitamin D3 PO 12/04/19 20:59 2,000 units HS DAGOBERTO Administration Zolpidem Tartrate 5 mg 11/04/19 16:54 11/05/19 00:40 Ambien PO 12/04/19 16:53 5 mg HS PRN Administration sleep NPO Date Last Intake of Fluids: 11/04/19 Time Last Intake of Fluids: 23:30 Date Last Intake of Solids: 11/04/19 Time Last Intake of Solids: 23:30 Past Medical History Medical History (Updated 11/05/19 @ 12:45 by Diana Dobbs DO) Acute lower GI bleeding (Acute) Anemia (Chronic) Autoimmune hepatitis s/p liver tx x2 2005 and 2006 BRBPR (bright red blood per rectum) History of renal dialysis HLD (hyperlipidemia) (Chronic) HTN (hypertension) (Chronic) Hx of compression fracture of spine Insomnia Osteoporosis (Chronic) Pancreatic cyst Exercise / Class Metabolic Activity III < 4 Walking/Shop/Light housework Past Surgical History Surgical History (Updated 11/05/19 @ 12:45 by Diana Dobbs DO) H/O detached retina repair (Chronic) 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, ?CMV Hx of liver transplant (Chronic) S/P cataract extraction and insertion of intraocular lens (Chronic) S/P tubal ligation (Chronic) Past Anesthesia History No Hx of Anesthesia Complications and No Family Hx of Anesthesia Complications History of PONV No Hx of PONV and No Hx of Motion Sickness Social History Smoking Status: Never smoker Do You Dip or Chew Tobacco: No Hx Alcohol Use: No Hx Substance Use: No substance use type: does not use Physical Exam Vital Signs Last Vital Signs Temp 36.9 C 11/05/19 13:36 Pulse 72 11/05/19 13:36 Resp 16 11/05/19 13:36 BP 177/70 H 11/05/19 13:36 Pulse Ox 100 11/05/19 13:36 ENMT Mouth: no TMJ abnormality Thyromental Distance: > or= 3.5 Finger Breadths Mallampati Class: II Neck normal visual inspection and trachea midline; neck extension not limited Respiratory normal respiratory effort Auscultation: lungs clear to auscultation bilaterally Cardiovascular Rate/Rhythm: regular rate and regular rhythm Heart Sounds: + murmur Musculoskeletal Spine: normal cervical ROM Extremities: full ROM of extremities Neurologic moves all extremities Psychiatric Orientation: alert and oriented x 3 Testing Laboratory Results 11/05/19 01:56 11/05/19 01:56 PT 11.4 Seconds (9.0-12.0) 11/04/19 14:24 INR 1.1 (0.9-1.1) 11/04/19 14:24 APTT 28.5 Seconds (21.0-31.0) 11/04/19 14:24 Blood Type A Positive 11/04/19 14:24 Antibody Screen NEGATIVE 11/04/19 14:24 Electrocardiogram Date: 11/05/19 Findings: + NSR @ (73bpm) and + poor R wave progression Chest X-Ray Date: 11/04/19 Findings: + NAD and + cardiomegaly Echocardiogram Date: 12/23/16 EF: 55-60 LV Function: normal RWMA: + none Other Findings: + LVH (mild) Valvular Disease: + no significant valvular disease and + MR (mild) gr 1 diastolic dysfxn rapid covid neg 11/05/19
--- NOTE | 2019-11-05 12:50 | History & Physical Bridge Note ---
Date of Service November 05, 2019 History & Physical Bridge Note I have examined the patient, reviewed the History & Physical and in the interval since the performance of the History & Physical I have noted the following changes of clinical significance: no changes noted
[2019-11-05] MEDS ORDERED: PROPOFOL IV EMULSION 10 MG/ML 20 ML VIAL IV ONE (14:28)
[2019-11-05] MEDS ORDERED: LIDOCAINE HCL 2% 2 ML VIAL/AMP(20MG/ML) INFIL ONE (14:28)
[2019-11-05] MEDS ORDERED: fentaNYL citrate 100 MCG/2 ML VIAL ONE (14:29)
--- NOTE | 2019-11-05 14:29 | GI REPORT ---
Patient Name: Diane Li Procedure Date: 11/05/2019 1:41 PM Date of : 1940 Admit Type: Inpatient Age: 79 Gender: Female Attending MD: Shelbi Mckoy MD Procedure: Upper GI endoscopy Providers: Shelbi Mckoy MD Referring MD: Blade Urban Indications: Hematochezia Medicines: Propofol per Anesthesia Complications: No immediate complications. Estimated Blood Loss: Estimated blood loss: none. Procedure: Pre-Anesthesia Assessment: - Prior to the procedure, a History and Physical was performed, and patient medications, allergies and sensitivities were reviewed. The patient's tolerance of previous anesthesia was reviewed. - The risks and benefits of the procedure and the sedation options and risks were discussed with the patient. All questions were answered and informed consent was obtained. - Patient identification and proposed procedure were verified prior to the procedure by the physician and the nurse. The procedure was verified in the procedure room. - Pre-procedure physical examination revealed no contraindications to sedation. After obtaining informed consent, the endoscope was passed under direct vision. Throughout the procedure, the patient's blood pressure, pulse, and oxygen saturations were monitored continuously. The Endoscope was introduced through the mouth, and advanced to the second part of duodenum. The upper GI endoscopy was accomplished without difficulty. The patient tolerated the procedure well. Findings: The examined esophagus was normal. The entire examined stomach was normal. The duodenal bulb and second portion of the duodenum were normal. Impression: - Normal esophagus. - Normal stomach. - Normal duodenal bulb and second portion of the duodenum. Recommendation: - Perform a colonoscopy today. Shelbi Mckoy MD 11/05/2019 2:28:44 PM This report has been signed electronically. Note Initiated On: 11/05/2019 1:41 PM Number of Addenda: 0 I attest to the content of the Intraoperative Record and orders documented therein, exceptions below {[id number]}
--- NOTE | 2019-11-05 14:34 | GI REPORT ---
Patient Name: Diane Li Procedure Date: 11/05/2019 1:40 PM Date of : 1940 Admit Type: Inpatient Age: 79 Gender: Female Attending MD: Shelbi Mckoy MD Procedure: Colonoscopy Providers: Shelbi Mckoy MD Referring MD: Blade Urban Indications: Rectal bleeding Medicines: Propofol per Anesthesia Complications: No immediate complications. Estimated Blood Loss: Estimated blood loss: none. Procedure: Pre-Anesthesia Assessment: - Prior to the procedure, a History and Physical was performed, and patient medications, allergies and sensitivities were reviewed. The patient's tolerance of previous anesthesia was reviewed. - The risks and benefits of the procedure and the sedation options and risks were discussed with the patient. All questions were answered and informed consent was obtained. - Patient identification and proposed procedure were verified prior to the procedure by the physician and the nurse. The procedure was verified in the procedure room. - Pre-procedure physical examination revealed no contraindications to sedation. After I obtained informed consent, the scope was passed under direct vision. Throughout the procedure, the patient's blood pressure, pulse, and oxygen saturations were monitored continuously. The Scope was introduced through the anus and advanced to the terminal ileum. The colonoscopy was performed without difficulty. The patient tolerated the procedure well. The quality of the bowel preparation was fair. The terminal ileum, ileocecal valve, appendiceal orifice, and rectum were photographed. Findings: The perianal exam was abnormal. The terminal ileum appeared normal. Two sessile polyps were found in the ascending colon. The polyps were 6 mm in size. These polyps were removed with a cold snare. Resection and retrieval were complete. Verification of patient identification for the specimen was done by the physician and nurse using the patient's name and date. Non-bleeding internal hemorrhoids were found during retroflexion. The hemorrhoids were small. An area of granular mucosa was found at the anorectal area. Biopsies were taken with a cold forceps for histology. Impression: - The examined portion of the ileum was normal. - Two 6 mm polyps in the ascending colon, removed with a cold snare. Resected and retrieved. - Non-bleeding internal hemorrhoids. - Granularity at the anorectal area. Biopsied. Recommendation: - [facility]. - Repeat colonoscopy for surveillance based on pathology results. Shelbi Mckoy MD 11/05/2019 2:33:49 PM This report has been signed electronically. Note Initiated On: 11/05/2019 1:40 PM Number of Addenda: 0 I attest to the content of the Intraoperative Record and orders documented therein, exceptions below {[id number]}
--- NOTE | 2019-11-05 14:49 | Progress Note ---
Date of Service November 05, 2019 Assessment & Plan Admission and Anticipated Discharge Date Admission Date: November 04, 2019 Subjective EGD unremarkable. Colonoscopy with no active bleeding. Likely had hemorrhoidal bleed. Recall Gi if needed. Results & Data ([facility]) Vital Signs (Past 12 Hours) Vital Signs Temp Pulse Pulse Pulse Resp BP BP 11/05/19 14:48 68 16 141/62 H 11/05/19 14:33 68 16 123/57 L 11/05/19 13:36 36.9 C 72 16 177/70 H 11/05/19 13:33 72 18 177/70 H 11/05/19 11:45 36.9 C 72 16 164/69 H 11/05/19 07:44 36.5 C 70 16 167/63 H 11/05/19 03:52 36.8 C 72 16 149/71 H Pulse Ox 11/05/19 14:48 95 11/05/19 14:33 97 11/05/19 13:36 100 11/05/19 13:33 96 11/05/19 11:45 100 11/05/19 07:44 95 11/05/19 03:52 95
--- NOTE | 2019-11-05 14:59 | Anesthesiology Progress Note ---
Date of Service November 05, 2019 Anesthesia Post Procedure Vital Signs Vital Signs: Temp Pulse Pulse Pulse Resp BP BP 11/05/19 14:48 68 16 141/62 H 11/05/19 14:33 68 16 123/57 L 11/05/19 13:36 36.9 C 72 16 177/70 H 11/05/19 13:33 72 18 177/70 H 11/05/19 11:45 36.9 C 72 16 164/69 H 11/05/19 07:44 36.5 C 70 16 167/63 H 11/05/19 03:52 36.8 C 72 16 149/71 H 11/04/19 23:58 86 11/04/19 23:36 36.6 C 71 16 168/69 H 11/04/19 22:41 74 177/76 H 11/04/19 20:41 74 207/82 H 11/04/19 20:09 78 11/04/19 18:52 76 186/74 H 11/04/19 17:39 36.7 C 80 22 182/76 H Pulse Ox 11/05/19 14:48 95 11/05/19 14:33 97 11/05/19 13:36 100 11/05/19 13:33 96 11/05/19 11:45 100 11/05/19 07:44 95 11/05/19 03:52 95 11/04/19 23:58 11/04/19 23:36 97 11/04/19 22:41 11/04/19 20:41 11/04/19 20:09 11/04/19 18:52 11/04/19 17:39 99 Transfer of Care Handoff Completed per policy Notes Mental Status: alert / awake / arousable Patient Amnestic to Procedure: Yes Nausea / Vomiting: adequately controlled Pain: adequately controlled Airway Patency, RR, SpO2: stable & adequate BP & HR: stable & adequate Hydration State: stable & adequate Anesthetic Complications: no major complications apparent and Pt Satisfied with anesthetic care
--- NOTE | 2019-11-05 15:44 | Hospitalist Progress Note ---
Date of Service November 05, 2019 Assessment & Plan (1) Acute lower GI bleeding: This is a 79-year-old female with PMH of autoimmune hepatitis, history of liver transplant in 2005 complicated by infection with repeat transplant 2006, CKD V on dialysis MWF and other medical problems listed below who presents with worsening rectal bleeding for 3 months. -Rectal exam with external hemorrhoids bleeding, one internal hemorrhoid palpated as well. Hydrocortisone cream [place] twice daily for hemorrhoids -Discussed with GI service, who will plan for EGD/colonoscopy tomorrow -She will be going to have endoscopies today (2) Symptomatic anemia: Hgb 9.9 (baseline ~11), plt of 119 -Consented, type and cross with 2 units PRBCs held Hemoglobin remains at 9.1 (3) Electrocardiogram showing T wave abnormalities: EKG with T wave flattening in anterior leads that are new -No chest pain and initial troponin within normal limits. Possibly due to demand ischemia with anemia -Monitor on telemetry, trend troponin, TTE in setting of EKG changes, systolic murmur noted on exam -Echocardiogram is pending and serial troponins remain unremarkable (4) Autoimmune hepatitis: (5) Hx of liver transplant: Hx of liver transplant x 2 for AIH, second transplant done for infection -Continue Everolimus -No acute symptoms (6) ESRD (end stage renal disease) on dialysis: MWF HD. 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 Plan to return home once medically stable. Admission and Anticipated Discharge Date Admission Date: November 04, 2019 Subjective Patient was seen and examined in telemetry unit She complains today of weakness but denies any other symptoms Awaiting EGD and dialysis today Review of Systems Review of Systems: All systems reviewed and are unremarkable except as noted below Neurologic: + generalized weakness Physical Exam Physical Exam: Lying in bed comfortably Constitutional: well developed and well nourished; no acute distress and not ill appearing Eyes: PERRL, conjunctivae normal, anicteric sclerae ENMT: external ear and nose normal, oropharynx normal Neck: trachea midline, no thyromegaly Respiratory: normal respiratory effort; no respiratory distress Auscultation: lungs clear to auscultation bilaterally Cardiovascular: Rate/Rhythm: regular rate and regular rhythm Heart Sounds: no murmur Gastrointestinal (Abdomen): Inspection/Auscultation: abdomen normal to inspection and normal bowel sounds; abdomen not distended Percussion/Palpation: abdomen soft; abdomen nontender Musculoskeletal: No acute arthritis involving any joints Neurologic: moves all extremities; no focal motor deficits Generally weak Results & Data Results & Data ([facility]) Vital Signs (Past 12 Hours) Vital Signs Temp Pulse Pulse Pulse Resp BP BP 11/05/19 15:03 70 18 165/72 H 11/05/19 14:48 68 16 141/62 H 11/05/19 14:33 68 16 123/57 L 11/05/19 13:36 36.9 C 72 16 177/70 H 11/05/19 13:33 72 18 177/70 H 11/05/19 11:45 36.9 C 72 16 164/69 H 11/05/19 07:44 36.5 C 70 16 167/63 H 11/05/19 03:52 36.8 C 72 16 149/71 H Pulse Ox 11/05/19 15:03 94 11/05/19 14:48 95 11/05/19 14:33 97 11/05/19 13:36 100 11/05/19 13:33 96 11/05/19 11:45 100 11/05/19 07:44 95 11/05/19 03:52 95 Laboratory Results Short CBC 11/04/19 11/05/19 Range/Units 20:38 01:56 WBC 4.55 L (4.8-10.8) K/uL Hgb 10.0 L 9.1 L (12.0-16.0) g/dL Hct 31.3 L 27.6 L (37-47) % Plt Count 111 L (130-400) K/uL BMP 11/05/19 01:56 Sodium 136 Potassium 5.5 H Chloride 103 Carbon Dioxide 25 BUN 26 H Creatinine 4.32 H Glucose 80 Calcium 8.3 L Cardiac Enzymes 11/04/19 11/05/19 Range/Units 20:38 01:56 Troponin I < 0.015 < 0.015 (0-0.045) ng/ml Liver Function 11/05/19 Range/Units 01:56 Total Bilirubin 0.5 (0.2-1) mg/dl AST 26 (15-37) U/L ALT 21 (12-78) U/L Alkaline Phosphatase 208 H (45-117) U/L Albumin 2.7 L (3.4-5.0) gm/dl Medications Administered Current Inpatient Medications Everolimus (Zortress) 2 ea PO BID DAGOBERTO Stop: 12/04/19 20:59 Last Admin: 11/05/19 07:47 Dose: 2 ea Documented by: Ferrous Sulfate (Feosol) 325 mg PO HS [facility] Stop: 12/04/19 20:59 Last Admin: 11/04/19 20:44 Dose: 325 mg Documented by: Hydralazine HCl (Apresoline) 10 mg PO BID [facility] Stop: 12/04/19 20:59 Last Admin: 11/05/19 07:46 Dose: 10 mg Documented by: Hydrocortisone (Hydrocortisone 2.5%) 1 appln EXT BID PRN PRN Reason: Hemorrhoids Stop: 12/04/19 16:19 Pantoprazole Sodium 40 mg/ (Syringe) 10 mls @ 5 mls/min IV BID [facility] Stop: 12/05/19 08:59 Last Admin: 11/05/19 09:39 Dose: 5 mls/min Documented by: Iron Sucrose 200 mg/ Sodium (Chloride) 110 mls @ 220 mls/hr IV TODAY@1015 [facility] Stop: 11/05/19 18:00 Metoprolol Tartrate (Lopressor) 25 mg PO BID [facility]; Protocol Stop: 12/04/19 20:59 Last Admin: 11/05/19 07:46 Dose: 25 mg Documented by: Multivitamins/Minerals (Caltrate Plus) 1 tab PO BID [facility] Stop: 12/04/19 20:59 Last Admin: 11/05/19 07:46 Dose: 1 tab Documented by: Ondansetron HCl (Zofran) 4 mg IV Q6 PRN PRN Reason: nausea Stop: 12/04/19 16:43 Ondansetron HCl (Zofran) 4 mg IV Q6H PRN PRN Reason: Nausea Stop: 12/04/19 17:38 Pantoprazole Sodium (Protonix) 40 mg PO BID [facility] Stop: 12/04/19 20:59 Last Admin: 11/04/19 20:45 Dose: 40 mg Documented by: Vitamin D (Vitamin D3) 2,000 units PO HS DAGOBERTO Stop: 12/04/19 20:59 Last Admin: 11/04/19 20:45 Dose: 2,000 units Documented by: Zolpidem Tartrate (Ambien) 5 mg PO HS PRN PRN Reason: sleep Stop: 12/04/19 16:53 Last Admin: 11/05/19 00:40 Dose: 5 mg Documented by: (1) HTN (hypertension) Hypertension type: essential hypertension Qualified Code(s): I10 - Essential (primary) hypertension
[2019-11-05] MEDS: FERROUS SULFATE 325 MG TAB PO SCH (21:05)
[2019-11-05] MEDS: CHOLECALCIFEROL 1,000 UNITS 25 MCG TAB PO SCH (21:06)
[2019-11-06] MEDS: PANTOprazole 40 MG in SYRINGE 0 ML IV SCH (07:59)
[2019-11-06] MEDS: METOPROLOL TARTRATE 25 MG TAB PO SCH (07:59)
[2019-11-06] MEDS: CALCIUM 600MG + VIT D 400 IU TAB PO SCH (08:00)
[2019-11-06] MEDS: EVEROLIMUS 0.5 MG PO SCH (08:00)
[2019-11-06] MEDS: HydrALAZINE 10 MG TAB PO SCH (08:00)
--- NOTE | 2019-11-06 08:44 | Nephrology Progress Note ---
Date of Service November 06, 2019 Assessment & Plan (1) ESRD (end stage renal disease) on dialysis: Tolerated HD well yesterday. UF 1.5 L. At her EDW of 48 kg this AM. Euvolemic on exam. Continue HD on MWF schedule. Resume outpatient Rx unchanged at [facility] post discharge. AVF functioning well. Adequate thrill and bruit this morning. Medications are appropriately dosed for kidney function. (2) HTN (hypertension): BP fluctuating yesterday but overall acceptable. Nebivolol not currently ordered. Resume home Rx at discharge. No changes at this time. (3) Anemia: Epogen 24650 units as well as Venofer 200 milligrams provided yesterday with HD. H/H pending this AM. (4) BRBPR (bright red blood per rectum): Slight bleeding from hemorrhoids persists but has improved. EDG did not show any UGI bleed. Admission and Anticipated Discharge Date Admission Date: November 04, 2019 Subjective No acute events overnight. Tolerated HD well yesterday. No complications with treatment. AVF functioning well. EGD completed without complications. No upper GI source of bleeding. Diane feels well this morning but remains concerned that she continues to see bright red blood. Bleeding has improved. She continues to see a small amount of bright red blood streaking in her stools and her underwear. She denies any pain. She denies any dyspnea. She otherwise feels well. Appetite is good. Review of Systems Review of Systems: All systems reviewed & are unremarkable except as noted in HPI & below Physical Exam Constitutional: well developed; no acute distress Eyes: no scleral abnormality and no corneal abnormality ENMT: Mouth: no oral mucosal abnormality and oral mucous membranes not dry Neck: normal visual inspection and trachea midline Respiratory: normal respiratory effort Auscultation: lungs clear to auscultation bilaterally Cardiovascular: Rate/Rhythm: regular rate Heart Sounds: normal S1, normal S2 and + murmur Extremities: + AV fistula; no edema Musculoskeletal: Extremities: no cyanosis and no clubbing Skin: normal turgor; no lesions Neurologic: Motor/Sensory: no tremor and no asterixis Psychiatric: Orientation: alert and oriented x 3 Results & Data ([facility]) Vital Signs (Past 12 Hours) Vital Signs Temp Pulse Pulse Resp BP Pulse Ox 11/06/19 07:56 36.8 C 73 16 184/71 H 95 11/06/19 05:11 36.7 C 71 16 144/60 H 94 11/06/19 02:37 71 11/05/19 23:31 36.6 C 72 18 131/62 97 Laboratory Results Laboratory Results - last 24 hr 11/05/19 08:55 COVID-19 PCR NEGATIVE Laboratory Results - last 24 hr 11/05/19 08:55 COVID-19 PCR NEGATIVE PG Care Time/CCT Total # of Minutes Spent Total Time Spent with Patient: Total time spent is greater than 50% in coordination of care (as documented) at patient's floor/unit and/or counseling patient: Coding Level of Care Code 94259 Subseq Hosp Care Lvl 3 Diagnoses ESRD (end stage renal disease) on dialysis N18.6; Z99.2 HTN (hypertension) I10 Hypertension type: essential hypertension Anemia D64.9 Anemia type: due to chronic kidney disease BRBPR (bright red blood per rectum) K62.5 (1) HTN (hypertension) Hypertension type: essential hypertension Qualified Code(s): I10 - Essential (primary) hypertension (2) Anemia Anemia type: due to chronic kidney disease
[2019-11-06 09:00] LABS: Basophils # (auto) 0.03 K/uL (0-0.2); Basophils % (auto) 0.7 %; Eosinophils # (auto) 0.08 K/uL (0-0.5); Eosinophils % (auto) 1.8 %; Hematocrit (blood only) 30.7 % (37-47); Hemoglobin 10.2 g/dL (12.0-16.0); Lymphocytes # (auto) 1.29 K/uL (1.2-3.4); Lymphocytes % (auto) 29.1 %; Mean Corpuscular Hemoglobin 29.6 pg (25-34); Mean Corpuscular Hgb Conc 33.2 g/dL (32-36); Mean Platelet Volume 9.9 fL (7.4-10.4); Monocytes # (auto) 0.53 K/uL (0.11-0.59); Neutrophils % (auto) 56.4 %; Platelet Count 117 K/uL (130-400); RDW Coefficient of Variation 16.4 % (11.5-14.5); RDW Standard Deviation 53.5 fL (36.4-46.3); Red Blood Count 3.45 M/uL (4.2-5.4); White Blood Count 4.43 K/uL (4.8-10.8)
[2019-11-06 09:22] LABS: Giant Platelets 1+
[2019-11-06 09:35] LABS: Albumin Globulin Ratio 0.7 (0.9-2); Albumin Level 3.1 gm/dl (3.4-5.0); BUN Creatinine Ratio 4.6 (10-20); Bilirubin,Total 0.5 mg/dl (0.2-1); Calcium 8.5 mg/dl (8.5-10.1); Est GFR (African American) 14.4; Est GFR (Non-African American) 12.4; Globulin 4.7 gm/dl (2.5-4.0); Potassium 4.4 mmol/L (3.5-5.1); Total Protein 7.8 gm/dl (6.4-8.2)
--- NOTE | 2019-11-06 12:53 | Hospitalist Progress Note ---
Date of Service November 06, 2019 Assessment & Plan (1) Acute lower GI bleeding: This is a 79-year-old female with PMH of autoimmune hepatitis, history of liver transplant in 2005 complicated by infection with repeat transplant 2006, CKD V on dialysis MWF and other medical problems listed below who presents with worsening rectal bleeding for 3 months. -Rectal exam with external hemorrhoids bleeding, one internal hemorrhoid palpated as well. Hydrocortisone cream [place] twice daily for hemorrhoids -Discussed with GI service, who will plan for EGD/colonoscopy tomorrow -She will be going to have endoscopies today -EGD: Normal esophagus, normal stomach and normal duodenal bulb and second portion of the duodenum -Colonoscopy: 2 6 mm polyps in the ascending colon removed with cold snare, nonbleeding internal hemorrhoids and granularity at the anorectal area which were biopsied -Hemoglobin remains stable -She was advised to keep for stool soft and not to strain at bowel movement -She was happy with the explanation (2) Symptomatic anemia: Hgb 9.9 (baseline ~11), plt of 119 -Consented, type and cross with 2 units PRBCs held Hemoglobin remains at 9.1 (3) Electrocardiogram showing T wave abnormalities: EKG with T wave flattening in anterior leads that are new -No chest pain and initial troponin within normal limits. Possibly due to demand ischemia with anemia -Monitor on telemetry, trend troponin, TTE in setting of EKG changes, systolic murmur noted on exam -Echocardiogram is pending and serial troponins remain unremarkable (4) Autoimmune hepatitis: (5) Hx of liver transplant: Hx of liver transplant x 2 for AIH, second transplant done for infection -Continue Everolimus -No acute symptoms (6) ESRD (end stage renal disease) on dialysis: MWF HD. 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 Plan to return home once medically stable. Admission and Anticipated Discharge Date Admission Date: November 04, 2019 Subjective Patient was seen and examined in telemetry unit She complains today of weakness but denies any other symptoms Awaiting EGD and dialysis today 11/06/2019 The patient was seen and examined in telemetry unit She is very worried that she still has bleeding per rectum She denies any other symptoms She was happy at the end after getting reassured Review of Systems Review of Systems: All systems reviewed and are unremarkable except as noted below Neurologic: + generalized weakness Physical Exam Physical Exam: Lying in bed comfortably Constitutional: well developed and well nourished; no acute distress and not ill appearing Eyes: PERRL, conjunctivae normal, anicteric sclerae ENMT: external ear and nose normal, oropharynx normal Neck: trachea midline, no thyromegaly Respiratory: normal respiratory effort; no respiratory distress Auscultation: lungs clear to auscultation bilaterally Cardiovascular: Rate/Rhythm: regular rate and regular rhythm Heart Sounds: no murmur Gastrointestinal (Abdomen): Inspection/Auscultation: abdomen normal to inspection and normal bowel sounds; abdomen not distended Percussion/Palpation: abdomen soft; abdomen nontender Musculoskeletal: No acute arthritis involving any joints Neurologic: moves all extremities; no focal motor deficits Alert, awake and oriented x3 Lymphatic: no cervical or axillary lymphadenopathy Results & Data Results & Data ([facility]) Vital Signs (Past 12 Hours) Vital Signs Temp Pulse Pulse Resp BP Pulse Ox 11/06/19 12:01 36.9 C 75 20 180/81 H 97 11/06/19 07:56 36.8 C 73 16 184/71 H 95 11/06/19 05:11 36.7 C 71 16 144/60 H 94 11/06/19 02:37 71 Laboratory Results Short CBC 11/06/19 Range/Units 08:45 WBC 4.43 L (4.8-10.8) K/uL Hgb 10.2 L (12.0-16.0) g/dL Hct 30.7 L (37-47) % Plt Count 117 L (130-400) K/uL BMP 11/06/19 08:45 Sodium 136 Potassium 4.4 D Chloride 102 Carbon Dioxide 27 BUN 16 Creatinine 3.39 H D Glucose 111 H Calcium 8.5 Liver Function 11/06/19 Range/Units 08:45 Total Bilirubin 0.5 (0.2-1) mg/dl AST 42 H (15-37) U/L ALT 24 (12-78) U/L Alkaline Phosphatase 233 H (45-117) U/L Albumin 3.1 L (3.4-5.0) gm/dl Medications Administered Current Inpatient Medications Everolimus (Zortress) 2 ea PO BID [facility] Stop: 12/04/19 20:59 Last Admin: 11/06/19 08:00 Dose: 2 ea Documented by: Ferrous Sulfate (Feosol) 325 mg PO HS [facility] Stop: 12/04/19 20:59 Last Admin: 11/05/19 21:05 Dose: 325 mg Documented by: Hydralazine HCl (Apresoline) 10 mg PO BID [facility] Stop: 12/04/19 20:59 Last Admin: 11/06/19 08:00 Dose: 10 mg Documented by: Hydrocortisone (Hydrocortisone 2.5%) 1 appln EXT BID PRN PRN Reason: Hemorrhoids Stop: 12/04/19 16:19 Pantoprazole Sodium 40 mg/ (Syringe) 10 mls @ 5 mls/min IV BID [facility] Stop: 12/05/19 08:59 Last Admin: 11/06/19 07:59 Dose: 5 mls/min Documented by: Metoprolol Tartrate (Lopressor) 25 mg PO BID [facility]; Protocol Stop: 12/04/19 20:59 Last Admin: 11/06/19 07:59 Dose: 25 mg Documented by: Multivitamins/Minerals (Caltrate Plus) 1 tab PO BID [facility] Stop: 12/04/19 20:59 Last Admin: 11/06/19 08:00 Dose: 1 tab Documented by: Ondansetron HCl (Zofran) 4 mg IV Q6 PRN PRN Reason: nausea Stop: 12/04/19 16:43 Ondansetron HCl (Zofran) 4 mg IV Q6H PRN PRN Reason: Nausea Stop: 12/04/19 17:38 Pantoprazole Sodium (Protonix) 40 mg PO BID [facility] Stop: 12/04/19 20:59 Last Admin: 11/04/19 20:45 Dose: 40 mg Documented by: Vitamin D (Vitamin D3) 2,000 units PO HS [facility] Stop: 12/04/19 20:59 Last Admin: 11/05/19 21:06 Dose: 2,000 units Documented by: Zolpidem Tartrate (Ambien) 5 mg PO HS PRN PRN Reason: sleep Stop: 12/04/19 16:53 Last Admin: 11/05/19 23:49 Dose: 5 mg Documented by: (1) HTN (hypertension) Hypertension type: essential hypertension Qualified Code(s): I10 - Essential (primary) hypertension
--- NOTE | 2019-11-07 07:53 | Discharge Summary ---
Date of Service November 07, 2019 Admission HPI Per Admitting Provider This is a 79-year-old female with PMH of autoimmune hepatitis, history of liver transplant in 2005 complicated by infection with repeat transplant 2006, CKD V on dialysis MWF and other medical problems listed below who presents with worsening rectal bleeding for 3 months. Bleeding started out as small red droplets on underwear but has progressed to wearing pad with paper towel and needing to change every 2 hours. Endorses some lightheadedness and mild nausea with vague intermittent lower abdominal pain. No melena. Denies fever, chills, headache, confusion, chest pain, SOB, vomiting, dysuria or constipation. Use of NSAIDs. Not on blood thinners. Admission Exam Per Admitting Provider Physical Exam: General Appearance: WD/WN, vitals as above, NAD, sitting up in bed, pleasant, conversing easily Head: normocephalic, atraumatic Eyes: normal inspection, PERRL, conjunctivae normal, anicteric sclerae ENT: external ear and nose normal, oropharynx normal Neck: trachea midline, no thyromegaly, normal visual inspection Respiratory: normal respiratory effort, crackles at right base but otherwise lungs clear to auscultation, no wheeze, rales, rhonchi. Normal insp/exp effort, no accessory muscle use Cardiovascular: regular rate, rhythm, + systolic murmur, normal peripheral pulses, no BLE edema. Vessels: no JVD or carotid bruit Chest: normal inspection of chest Abdomen/GI: normal bowel sounds, soft, diffusely TTP , no hepatosplenomegaly Extremities/Musculoskeletal: no cyanosis or clubbing, extremities motor strength 5/5 Neurologic: PERRL, EOMI, accommodation nl, no face palsy, no dysarthria, CN's II-XI intact bilaterally and moves all extremities Psychiatric: A+Ox3, euthymic affect Skin: no rashes, normal color, warm/dry Principal Diagnosis Rectal bleeding secondary to hemorrhoids, autoimmune hepatitis status post liver transplant, end-stage renal disease on hemodialysis. Hypertension Discharge Exam Constitutional well developed and well nourished; no acute distress and not ill appearing Eyes PERRL, conjunctivae normal, anicteric sclerae ENMT external ear and nose normal, oropharynx normal Neck trachea midline, no thyromegaly Respiratory normal respiratory effort; no respiratory distress Auscultation: lungs clear to auscultation bilaterally Cardiovascular Rate/Rhythm: regular rate and regular rhythm Heart Sounds: no murmur Gastrointestinal (Abdomen) Inspection/Auscultation: abdomen normal to inspection and normal bowel sounds; abdomen not distended Percussion/Palpation: abdomen soft; abdomen nontender Neurologic moves all extremities; no focal motor deficits Lymphatic no cervical or axillary lymphadenopathy Discharge Data Allergies Allergy/AdvReac Type Severity Reaction Status Date / Time No Known Allergies Allergy Verified 11/04/19 15:15 Consultations 11/04/19 15:32 ED Decision to Admit Stat 11/04/19 17:39 Consult Gastroenterology Routine Consult Nephrology Routine Procedures Performed Operation Date: 11/05/19 14:40 Actual Procedures s Esophagogastroduodenoscopy - Shelbi Mckoy MD p Colonoscopy Polypectomy - Shelbi Mckoy MD Ordered Studies 11/04/19 16:43 CT abd pelvis IV con only Stat Hospital Course (1) Acute lower GI bleeding: This is a 79-year-old female with PMH of autoimmune hepatitis, history of liver transplant in 2005 complicated by infection with repeat transplant 2006, CKD V on dialysis MWF and other medical problems listed below who presents with worsening rectal bleeding for 3 months. -Rectal exam with external hemorrhoids bleeding, one internal hemorrhoid palpated as well. Hydrocortisone cream [place] twice daily for hemorrhoids -Discussed with GI service, who will plan for EGD/colonoscopy tomorrow -She will be going to have endoscopies today -EGD: Normal esophagus, normal stomach and normal duodenal bulb and second portion of the duodenum -Colonoscopy: 2 6 mm polyps in the ascending colon removed with cold snare, n onbleeding internal hemorrhoids and granularity at the anorectal area which were biopsied -Hemoglobin remains stable -She was advised to keep for stool soft and not to strain at bowel movement -She was happy with the explanation (2) Symptomatic anemia: Hgb 9.9 (baseline ~11), plt of 119 -Consented, type and cross with 2 units PRBCs held Hemoglobin remains at 9.1 (3) Electrocardiogram showing T wave abnormalities: EKG with T wave flattening in anterior leads that are new -No chest pain and initial troponin within normal limits. Possibly due to demand ischemia with anemia -Monitor on telemetry, trend troponin, TTE in setting of EKG changes, systolic murmur noted on exam -Echocardiogram is pending and serial troponins remain unremarkable (4) Autoimmune hepatitis: (5) Hx of liver transplant: Hx of liver transplant x 2 for AIH, second transplant done for infection -Continue Everolimus -No acute symptoms (6) ESRD (end stage renal disease) on dialysis: MWF HD. Routine nephrology consult for HD plan tomorrow after colonoscopy and EGD Continue dialysis as per postal carrier Continue hemodialysis as an outpatient (7) HTN (hypertension): Continue hydralazine, nebivolol Seems to be at the upper side expected to be controlled (8) Insomnia: Ambien HS as needed DVT Ppx: SCDs Code status: FULL PCP: Leena Dispo: Admit to PCU. Plan to return home once medically stable. Total Time Total Time Spent Total Time Spent (In Minutes): 35 minutes Total Time Includes: Examination of the Patient, Discharge Planning, Medication Reconciliation and Communication With Other Providers Discharge Plan Discharge Items Patient Disposition: Home - Self-Care Reason For Visit: RECTAL BLEED Discharge Diagnosis: Rectal bleeding secondary to hemorrhoids, autoimmune hepatitis status post liver transplant, end-stage renal disease on hemodialysis. Hypertension Condition on Discharge: Good Activity: Resume your previous activity Non-emergency contact: Primary Care Provider Call non-emergency contact if: you have any medication questions and your symptoms worsen Follow-up/Referrals: Lucius Stern MD [Primary Care Provider] - 11/11/19 11:00 am (Your appointment is with Dr. Ivey (Dr. Stern is not available)) Diet: Dialysis Renal Addtl Attending Provider Instructions: Please take precaution to avoid falls. Avoid constipation and avoid straining at stool Take Metamucil or MiraLAX regularly for your bowel. Addtl Tripe Finisher Provider Instructions: Do not take metoprolol tartrate as this was discontinued. Continue with your Nebivolol. Pending Studies at Discharge: No Stand-Alone Forms: My 3Touch, Smoking Cessation Medications and DC Order Prescriptions: New pantoprazole 40 mg Tablet,Delayed Release (Dr/Ec) 40 mg PO BID 30 Days Qty: 60 RF: 0 hydrocortisone 2.5 % Cream 1 applic topical BID PRN (Reason: skin irritation) 30 Days Qty: 1 RF: 0 Continued ferrous sulfate 325 mg (65 mg iron) Tablet 325 mg PO HS RF: 0 calcium carbonate-vitamin D3 [Calcium 500 + D] 500 mg(1,250mg) -200 unit Tablet 1 tab PO BID RF: 0 nebivolol 10 mg tablet 10 mg PO QAM RF: 0 cholecalciferol (vitamin D3) [Vitamin D3] 2,000 unit Tablet 2,000 unit PO HS RF: 0 everolimus (immunosuppressive) 0.5 mg tablet 1 mg PO BID RF: 0 zolpidem 5 mg Tablet 5 mg PO HS PRN (Reason: sleep) Qty: 10 RF: 0 Nepro Carb Steady 0.08 gram-1.8 kcal/mL Liquid 1 ea PO BID RF: 0 hydralazine 10 mg tablet 10 mg PO BID RF: 0 oxycodone 5 mg tablet 5 mg PO Q6 PRN (Reason: pain) RF: 0 docusate sodium 100 mg Capsule 100 mg PO BID Qty: 60 RF: 0 Discharge Orders: Discharge Order (Routine); Ordered 11/06/19 Ordered By: Blade Padney/Other Patient Handouts: Bleeding Rectal Evaluate Treat, Understanding Rectal Bleeding, Understanding Hemorrhoids Admission Data Admit Date/Time: 11/04/19 15:37 Attending Provider: Blade Urban Admit Provider: Tam Cobb Primary Care Provider: Lucius Stern Other Providers: Tam Cobb ; Shelbi Mckoy Kevin C. Other Interventions: Discharge Summary Assessment (RN) Last Done: 11/06/19 13:57 DC Date/Time DO NOT enter until pt leaves facility: 11/06/19 14:41
== END 2019-11-06 14:41 | disposition home or self-care (01) | DRG 377 ==
LOC: ED 14:02 → 2S 15:37 → SUATTDRO 15:37 → 2S 16:52

== ENCOUNTER 2019-12-24 03:41 | Inpatient (IN) ==
[2019-12-24] MEDS ORDERED: HYDROmorphone INJ 0.5 MG/0.5 ML SYR IV STA ×2 (04:17→05:31)
[2019-12-24 04:37] LABS: Basophils # (auto) 0.01 K/uL (0-0.2); Basophils % (auto) 0.1 %; Eosinophils # (auto) 0.09 K/uL (0-0.5); Eosinophils % (auto) 1.3 %; Hematocrit (blood only) 34.8 % (37-47); Hemoglobin 11.3 g/dL (12.0-16.0); Immature Granulocytes # (auto) 0.05 K/uL (0.00-0.02); Immature Granulocytes % (auto) 0.7 %; Lymphocytes % (auto) 13.1 %; Mean Corpuscular Hemoglobin 29.6 pg (25-34); Mean Corpuscular Hgb Conc 32.5 g/dL (32-36); Mean Corpuscular Volume 91.1 fL (80-100); Mean Platelet Volume 9.8 fL (7.4-10.4); Monocytes # (auto) 0.33 K/uL (0.11-0.59); Monocytes % (auto) 4.8 %; Neutrophils # (auto) 5.47 K/uL (1.4-6.5); Platelet Count 117 K/uL (130-400); RDW Coefficient of Variation 16.5 % (11.5-14.5); RDW Standard Deviation 54.9 fL (36.4-46.3); Red Blood Count 3.82 M/uL (4.2-5.4); White Blood Count 6.85 K/uL (4.8-10.8)
[2019-12-24 04:51] LABS: INR 1.1 (0.9-1.1); Partial Thromboplastin Time 28.1 Seconds (21.0-31.0); Prothrombin Time 11.7 Seconds (9.0-12.0)
[2019-12-24 05:10] LABS: Albumin Globulin Ratio 0.7 (0.9-2); Albumin Level 3.4 gm/dl (3.4-5.0); BUN Creatinine Ratio 8.8 (10-20); Bilirubin,Total 0.5 mg/dl (0.2-1); Calcium 8.6 mg/dl (8.5-10.1); Creatinine Clr Calc Pharmacy 6.7 ml/min; Est GFR (African American) 9.1; Est GFR (Non-African American) 7.8; Globulin 4.7 gm/dl (2.5-4.0); Potassium 5.1 mmol/L (3.5-5.1); Total Protein 8.1 gm/dl (6.4-8.2)
[2019-12-24 06:37] LABS: Appearance Urine Clear (Clear); Bacteria Urine Automated 1+ (Negative); Bilirubin Urine Negative (Negative); Blood Urine Trace (Negative); Color Urine Yellow; Glucose Urine UA Negative (Negative); Ketones Urine Negative (Negative); Leukocyte Esterase Urine Trace (Negative); Nitrite Urine Negative (Negative); Specific Gravity Urine 1.011 (1.000-1.030); Urobilinogen Urine Negative (Negative); pH Urine >= 9.0 (4.5-7.5)
[2019-12-24 06:45] LABS: Protein Urine 2+ (Negative)
[2019-12-24 06:49] LABS: Sulfosalicylic Acid Urine Positive (Negative)
--- NOTE | 2019-12-24 07:57 | XRay Report ---
XR hip LT min 2V CLINICAL HISTORY: Left hip pain following fall. COMPARISON: CT of the abdomen and pelvis November 03, 2009. FINDINGS: Alignment of the left hip is anatomic. No proximal left femoral fracture. There is a nondi splaced fracture of the left inferior pubic grams. There is also probable fracture of the left superi or pubic ramus. These fractures are age indeterminate. IMPRESSION: 1. No proximal left femoral fracture. 2. Left inferior and superior pubic rami fractures. These fractures are likely. ACT 112: Negative or not required by law. Electronically signed by: Milton Calloway M.D. 12/24/2019 7:56 AM
--- NOTE | 2019-12-24 07:58 | XRay Report ---
XR shoulder LT min 2V routine CLINICAL HISTORY: fall COMPARISON: Chest radiograph November 04, 2019. FINDINGS: Alignment of the left acromioclavicular and glenohumeral joints is anatomic. There is an i mpacted left humeral neck fracture that extends into the humeral head. This is likely acute. This is new since exam of November 04, 2019. There are left axillary/left upper extremity surgical clips. There i s moderate osteoarthritis of the left shoulder. IMPRESSION: Impacted left humeral neck fracture that extends into the humeral head, likely acute. ACT 112: Negative or not required by law. Electronically signed by: Milton Calloway M.D. 12/24/2019 7:57 AM
--- NOTE | 2019-12-24 08:00 | XRay Report ---
XR chest 1V portable CLINICAL HISTORY: fall COMPARISON STUDY: Chest CT August 06, 2018. Chest radiograph November 04, 2019. FINDINGS: Impacted left humeral neck and head fracture is better depicted on the left shoulder radiog raphs. There is no pneumothorax. There may be a trace right pleural effusion. There is mild elevation of the right hemidiaphragm. There is moderate cardiomegaly without evidence for pulmonary edema. No airspace opacities are present. IMPRESSION: 1. No pneumothorax. 2. Trace right pleural effusion. 3. Impacted left humeral neck and head fracture, better depicted on the left shoulder radiographs. ACT 112: Negative or not required by law. Electronically signed by: Milton Calloway M.D. 12/24/2019 7:59 AM
--- NOTE | 2019-12-24 09:04 | CT Scan Report ---
CT SCAN OF THE BONY PELVIS WITHOUT IV CONTRAST CLINICAL HISTORY: Fall with left-sided pelvic pain. COMPARISON STUDY: Radiographs of the left hip dated 12/24/2019. Pelvic CT dated 11/04/2019 TECHNIQUE: CT scan of the pelvis is performed from the pelvic inlet to the proximal femora. Images ar e reviewed in the axial, sagittal, and coronal planes. IV contrast was not administered for this exam ination. A dose lowering technique was utilized adhering to the principles of ALARA. CT DOSE: 294.76 mGy.cm FINDINGS: The skeletal structures are heterogeneously osteopenic. There are acute fractures of the le ft superior and inferior pubic ring. Mild hemorrhage is noted around the fracture sites. There is int ramuscular hemorrhage within the left obturator internus. No additional acute fracture is identified. There are healed right pubic ring fractures. There is chronic deformity of the distal sacrum/coccyx, as well as a chronic compression deformity of L5. The proximal femora are intact. There is no eviden ce of avascular necrosis of the femoral heads. No lytic or blastic lesion is seen. Degenerative joint space narrowing is seen in both hips. There is no significant effusion. Degenerative sclerosis is se en in the sacroiliac joints. There is generalized and symmetric atrophy of the regional musculature. A fat-containing ventral hernia is noted in the pelvis. The bladder is partially decompressed around a Wong catheter. Foci of intraluminal gas are likely related to instrumentation. The uterus is kristi l as visualized. No adnexal lesion is seen. There is no pelvic sidewall or inguinal adenopathy. Advan glo atherosclerotic calcification is noted in the iliac arteries. The visualized bowel loops are norm al in caliber. There is evidence of small bowel anastomosis in the left upper pelvis. IMPRESSION: 1. There are acute left pubic ring fractures with mild surrounding hemorrhage. 2. Intramuscular hemorrhage is noted within the left obturator internus. 3. Additional chronic/healed fractures as above. ACT 112: Negative or not required by law. Dictated: 12/24/2019 7:58 AM Transcribed: 12/24/2019 8:20 AM Felicia [id number] Layo Electronically signed by: Kodi Talley M.D. 12/24/2019 9:02 AM
--- NOTE | 2019-12-24 11:39 | History & Physical Report ---
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 -Fell after ambulating back to bed from bathroom while looking at phone. Denies head trauma or LOC -Left shoulder XR with impacted left humeral neck fracture that extends into the humeral head, likely acute -CT pelvis with acute left pubic ring fractures with mild surrounding hemorrhage and intramuscular hemorrhage is noted within the left obturator internus -Hemodynamically stable with hgb at baseline of 11 -Discussed with orthopedic service, who feel that both fracture are non- operative and they will evaluate during admission -LLE weightbearing as tolerated, LUE nonweightbearing -PT/OT evaluation. Routine orthopedic consult, discharge planning for likely SNF placement (currently lives with family) (4) UTI (urinary tract infection): Abnormal UA. Will treat empirically with Rocephin while urine culture results. Wong in place (5) ESRD (end stage renal disease) on dialysis: ESRD (end stage renal disease) on MWF dialysis - missed this morning -Routine nephrology consult for HD (6) Autoimmune hepatitis: Hx of liver transplant x 2 for AIH, second transplant done for infection -Continue Everolimus (7) HTN (hypertension): Continue hydralazine, nebivolol (8) Anemia: Hgb at baseline ~ 11. Continue to monitor in setting of pelvic fracture, ongoing bleeding hemorrhoids (9) Insomnia: Ambien HS as needed but caution while patient also receiving narcotics DVT Ppx: SCDs Code status: FULL PCP: Leena Dispo: Admit to med surg. Discharge planning ordered Patient seen in collaboration with Dr. Werner. Please see addendum. 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 Patient took her Ambien sleeping pill and use the restroom as usual and had walked back to bedside and was looking at phone when she suddenly found herself on the floor. Denies tripping over anything or losing her balance. Feels like her legs gave out from under her. Denies any head trauma or loss of consciousness. No preceding chest pain, palpitations or shortness of breath. Presenting with left shoulder and left groin pain, both exacerbated with movement. Not take any of her morning medications today. Denies any fever, chills, lightheadedness, visual changes, chest pain, palpations, shortness of breath, nausea, vomiting, abdominal pain, dysuria, hematuria or constipation. D oes have ongoing loose, bloody bowel movements attributed to hemorrhoids. Recent negative GI work-up with EGD and colonoscopy. Hemoglobin is stable at baseline around 11. Patient lives with family and is ambulatory at baseline. Allergies Allergy/AdvReac Type Severity Reaction Status Date / Time No Known Allergies Allergy Verified 12/24/19 04:25 Home Medications Home Medications Medication Instructions Recorded Confirmed Type calcium carbonate-vitamin D3 1 tab PO BID 06/03/18 12/24/19 History [Calcium 500 + D] cholecalciferol (vitamin D3) 2,000 unit PO HS 06/03/18 12/24/19 History [Vitamin D3] everolimus (immunosuppressive) 1 mg PO BID 06/03/18 12/24/19 History ferrous sulfate 325 mg PO HS 06/03/18 12/24/19 History nebivolol 10 mg PO QAM 06/03/18 12/24/19 History zolpidem 5 mg PO HS PRN #10 tab 08/23/18 12/24/19 Rx Nepro Carb Steady 1 ea PO BID 11/04/19 12/24/19 History hydralazine 10 mg PO BID 11/04/19 12/24/19 History Past Med/Surg History Medical History Autoimmune hepatitis s/p liver tx x2 2005 and 2006 BRBPR (bright red blood per rectum) History of renal dialysis HLD (hyperlipidemia) HTN (hypertension) Hx of compression fracture of spine Insomnia Osteoporosis Pancreatic cyst Surgical History H/O detached retina repair History of liver transplant 2006. 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, ?CMV Hx of liver transplant S/P cataract extraction and insertion of intraocular lens S/P tubal ligation Social History Smoking Status: Never smoker Second Hand Exposure: No; Hx Alcohol Use: No Hx Substance Use: No Preferred Language: Central [place] Communication Ability: Effective Pharmacy Technician Required: No Beliefs That Will Affect Care: None marital status: Single Current Living Situation: Family Current Living Situation Comment: lives with son current occupational status: retired Other Information That Helps Us Care for You: No Feels Safe at Home: Yes Safety Concerns: Feels Safe At This Time Review of Systems Review of Systems: At least ten systems reviewed and negative except as noted in the HPI. Physical Exam Physical Exam: General Appearance: WD/WN, vitals as above, conversing easily Head: normocephalic, atraumatic Eyes: normal inspection, PERRL, conjunctivae normal, anicteric sclerae ENT: external ear and nose normal, oropharynx normal Neck: normal visual inspection, trachea midline, no thyromegaly Respiratory: normal respiratory effort, lungs clear to auscultation, no wheeze, rales, rhonchi. No accessory muscle use Cardiovascular: regular rate, rhythm, + systolic murmur, normal peripheral pulses, no BLE edema Abdomen/GI: normal bowel sounds, soft, nontender, no hepatosplenomegaly Extremities/Musculoskeletal: LUE in sling, TTP along shoulder and upper arm. NVI distally. TTP of left upper leg and groin, pain with mvmt. No deformities noted. Extremities motor strength 5/5 Neurologic: PERRL, EOMI, no dysarthria, CN's II-XI intact bilaterally and moves all extremities Psychiatric: A+Ox3, anxious mood Skin: no rashes, normal color, warm/dry Results & Data Results & Data ([facility]) Vital Signs (Past 12 Hours) Vital Signs Temp Pulse Pulse Resp BP BP Pulse Ox 12/24/19 09:10 87 16 187/89 H 97 12/24/19 07:31 85 20 199/58 H 12/24/19 07:00 84 18 187/59 H 94 09/09/20 06:31 82 17 200/68 H 95 12/24/19 06:08 84 18 198/74 H 95 12/24/19 05:00 79 21 176/77 H 94 12/24/19 04:44 78 23 183/76 H 94 12/24/19 04:37 74 18 169/67 H 92 12/24/19 03:51 36.4 C L 74 20 190/82 H 98 Laboratory Results Short CBC 12/24/19 Range/Units 04:26 WBC 6.85 (4.8-10.8) K/uL Hgb 11.3 L (12.0-16.0) g/dL Hct 34.8 L (37-47) % Plt Count 117 L (130-400) K/uL BMP 12/24/19 04:26 Sodium 138 Potassium 5.1 Chloride 104 Carbon Dioxide 28 BUN 44 H Creatinine 4.97 H* Glucose 112 H Calcium 8.6 Liver Function 12/24/19 Range/Units 04:26 Total Bilirubin 0.5 (0.2-1) mg/dl AST 37 (15-37) U/L ALT 24 (12-78) U/L Alkaline Phosphatase 226 H (45-117) U/L Albumin 3.4 (3.4-5.0) gm/dl Urine 12/24/19 Range/Units 05:30 Urine Color Yellow Urine Appearance Clear (Clear) Urine pH >= 9.0 H (4.5-7.5) Ur Specific [place] 1.011 (1.000-1.030) Urine Protein 2+ H (Negative) Urine Glucose (UA) Negative (Negative) Diagnostic Findings CXR: IMPRESSION: 1. No pneumothorax. 2. Trace right pleural effusion. 3. Impacted left humeral neck and head fracture, better depicted on the left shoulder radiographs. L Shoulder XR: IMPRESSION: Impacted left humeral neck fracture that extends into the humeral head, likely acute. L Hip XR: IMPRESSION: 1. No proximal left femoral fracture. 2. Left inferior and superior pubic rami fractures. These fractures are likely. CT pelvis: IMPRESSION: 1. There are acute left pubic ring fractures with mild surrounding hemorrhage. 2. Intramuscular hemorrhage is noted within the left obturator internus. 3. Additional chronic/healed fractures as above. Code Status & VTE Plan VTE Prophylaxis Plan VTE Prophylaxis will be ordered: Yes Supervising Physician Co-Signing Physician Notes Pt seen and examined by me, care coordinated with Stephany Echevarria PA-C, please refer to her note above for further detail. 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 Pt is lying in bed in NAD, LUE in sling, TTP along shoulder and upper arm. NVI distally. TTP of left upper leg and groin, pain with mvmt. No deformities noted. Extremities motor strength 5/5. Denies any fever, chills, chest pain, shortness of breath. Denies abd. pain, n/v. Lungs clear to auscultation b/l, RRR, soft syst. murmur noted. Abdomen soft, nontender, nondistended. Pt is alert and oriented and answering questions appropriately. She does remember the incident/ fall and denies any LOC. Ortho, and nephrology consulted. Nisha for now for poss. PATRICA. Sirena Werner MD (1) HTN (hypertension) Hypertension type: essential hypertension Qualified Code(s): I10 - Essential (primary) hypertension
[2019-12-24] MEDS ORDERED: NEBIVOLOL 10 MG PO SCH (11:45)
[2019-12-24] MEDS ORDERED: NUT TX IMP RENAL FXN LAC REDUC PO SCH (11:45)
[2019-12-24] MEDS ORDERED: ACETAMINOPHEN 500 MG TAB PO SCH ×2 (11:45→14:00)
[2019-12-24] MEDS ORDERED: HydrALAZINE 10 MG TAB PO SCH (11:45)
[2019-12-24] MEDS ORDERED: EVEROLIMUS 1 MG PO SCH (11:45)
[2019-12-24] MEDS ORDERED: HYDROmorphone INJ 0.5 MG/0.5 ML SYR IV PRN (13:41)
[2019-12-24] MEDS: MoRPHine SULFATE 2 MG/ML CARP IV PRN ×2 (14:13→21:17)
[2019-12-24] MEDS: cefTRIAXone SODIUM 1,000 MG in DEXTROSE 5% 50 ML IV SCH (14:50)
[2019-12-24] MEDS: METOPROLOL TARTRATE 25 MG TAB PO SCH ×2 (14:51→20:12)
[2019-12-24] MEDS: HydrALAZINE 10 MG TAB PO SCH ×2 (14:51→20:11)
--- NOTE | 2019-12-24 15:12 | Orthopedic Consultation ---
Date of Consultation December 24, 2019 Assessment & Plan (1) Pelvic ring fracture: WBAT with 4 prong stabilization cane OOB from bed to chair and bathroom DVT prophy deferred to medical service due to rectal bleeding and anemia PT/OT eval Recommend SNF due to current issues and PMH Will continue to follow while inpatient. (2) Left humeral fracture: Nonweightbearing in Left UE with sling use when ambulatory Ice with EZ wrap Use care when moving arm to initiate dialysis treatment PO pain control per medicine service discretion. Follow-up Jania 2 weeks with x-rays Supervising Physician Co-Signing Physician Notes I saw and examined the patient, reviewed her studies, formulated the treatment plan, and agree with above note. History of Present Illness Reason for Consultation: Left proximal humerus and pubic rami fractures Requesting Physician: Maico Dykes MD Attending Physician: Darius Werner MD History of Present Illness This 79 yo F is seen in consultation for left proximal humerus and pubic rami fractures that she sustained after a fall while walking from her bathroom back to her bed early this AM. Patient has PMH significant for CKD that requires dialysis treatment, autoimmune hepatitis, hist of a liver transplant and acute rectal bleeding possibly due to hemorrhoids. Patient states that she has severe pain in her shoulder and left hip, and also is complaint of left wrist pain with numbness/tingling in her fingers. She denies LOC, syncope, CP, SOB, lethargy, head trauma. Allergies Allergy/AdvReac Type Severity Reaction Status Date / Time No Known Allergies Allergy Verified 12/24/19 04:25 Home Medications Home Medications Medication Instructions Recorded Confirmed Type calcium carbonate-vitamin D3 1 tab PO BID 06/03/18 12/24/19 History [Calcium 500 + D] cholecalciferol (vitamin D3) 2,000 unit PO HS 06/03/18 12/24/19 History [Vitamin D3] everolimus (immunosuppressive) 1 mg PO BID 06/03/18 12/24/19 History ferrous sulfate 325 mg PO HS 06/03/18 12/24/19 History nebivolol 10 mg PO QAM 06/03/18 12/24/19 History zolpidem 5 mg PO HS PRN #10 tab 08/23/18 12/24/19 Rx Nepro Carb Steady 1 ea PO BID 11/04/19 12/24/19 History hydralazine 10 mg PO BID 11/04/19 12/24/19 History Patient History Medical History Autoimmune hepatitis s/p liver tx x2 2005 and 2006 BRBPR (bright red blood per rectum) History of renal dialysis HLD (hyperlipidemia) HTN (hypertension) Hx of compression fracture of spine Insomnia Osteoporosis Pancreatic cyst Surgical History H/O detached retina repair 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, ?CMV Hx of liver transplant S/P cataract extraction and insertion of intraocular lens S/P tubal ligation Social History Smoking Status: Never smoker Second Hand Exposure: No; Hx Alcohol Use: No Hx Substance Use: No Preferred Language: Montenegrin Communication Ability: Effective Wreath Maker Required: No Beliefs That Will Affect Care: None marital status: Single Current Living Situation: Family Current Living Situation Comment: lives with son current occupational status: retired Other Information That Helps Us Care for You: No Feels Safe at Home: Yes Safety Concerns: Feels Safe At This Time Review of Systems Review of Systems: All systems reviewed & are unremarkable except as noted in Subjective Physical Exam Physical Exam: Left shoulder: TTP over shoulder and proximal humerus near site of dialysis fistula. ROM at shoulder not tested due to fracture. Mild edema and ecchymosis. No erythema, warmth or open skin areas. Able to depict light sensation touch in upper arm. Mildly TTP over AC joint. Left wrist: TTP over distal radius and anatomic snuffbox. ROM with flexion/extension and ulnar/radial deviation limited due to pain. No edema, erythema, ecchymosis, warmth or palpable bony deformity. Periph pulses 2+ Patient resistant to flex at elbow but is only comfortable with terminal extension. No TTP at elbow. Appropriate finger dexterity performing pincer grasp and actively flexing and extending at IP of thumb. NV intact in Left UE. Left hip: + log roll with referred to pain to anterior groin area. Unable to perform SLRT. Quad strength 2-3/5. Knee flexion to 50 degrees causes no pain in hip. No TTP in groin. Able to actively internally/externally rotate leg with referred hip pain. Also can actively dorsi/plantar flex foot. NV intact. Periph pulses 2+. Results & Data ([facility]) Vital Signs (Past 12 Hours) Vital Signs Temp Pulse Pulse Resp BP BP BP 12/24/19 13:56 36.8 C 72 16 181/79 H 12/24/19 09:10 87 16 187/89 H 12/24/19 07:31 85 20 199/58 H 12/24/19 07:00 84 18 187/59 H 12/24/19 06:31 82 17 200/68 H 12/24/19 06:08 84 18 198/74 H 12/24/19 05:00 79 21 176/77 H 12/24/19 04:44 78 23 183/76 H 12/24/19 04:37 74 18 169/67 H 12/24/19 03:51 36.4 C L 74 20 190/82 H Pulse Ox 12/24/19 13:56 97 12/24/19 09:10 97 12/24/19 07:31 12/24/19 07:00 94 12/24/19 06:31 95 12/24/19 06:08 95 12/24/19 05:00 94 12/24/19 04:44 94 12/24/19 04:37 92 12/24/19 03:51 98 Laboratory Results 12/24/19 12/24/19 12/24/19 Range/Units 05:30 04:26 04:26 WBC (4.8-10.8) K/uL RBC (4.2-5.4) M/uL Hgb (12.0-16.0) g/dL Hct (37-47) % MCV (80-100) fL MCH (25-34) pg MCHC (32-36) g/dL RDW Std Deviation (36.4-46.3) fL RDW Coeff of Darci (11.5-14.5) % Plt Count (130-400) K/uL MPV (7.4-10.4) fL Immature Gran % (Auto) % Neut % (Auto) % Lymph % (Auto) % [place] % (Auto) % Eos % (Auto) % Baso % (Auto) % Neut # (Auto) (1.4-6.5) K/uL Lymph # (Auto) (1.2-3.4) K/uL [place] # (Auto) (0.11-0.59) K/uL Eos # (Auto) (0-0.5) K/uL Baso # (Auto) (0-0.2) K/uL Immature Gran # (Auto) (0.00-0.02) K/uL PT 11.7 (9.0-12.0) Seconds INR 1.1 (0.9-1.1) APTT 28.1 (21.0-31.0) Seconds PTT Ratio 1.0 Sodium 138 (136-145) mmol/L Potassium 5.1 (3.5-5.1) mmol/L Chloride 104 (98-107) mmol/L Carbon Dioxide 28 (21-32) mmol/L Anion Gap 6.0 (3-11) BUN 44 H (7-18) mg/dl Creatinine 4.97 H* (0.6-1.2) mg/dl Est Cr Clr Drug Dosing 6.7 ml/min Est GFR ( Amer) 9.1 Est GFR (Non-Af Amer) 7.8 BUN/Creatinine Ratio 8.8 L (10-20) Glucose 112 H (70-99) mg/dl Calcium 8.6 (8.5-10.1) mg/dl Total Bilirubin 0.5 (0.2-1) mg/dl AST 37 (15-37) U/L ALT 24 (12-78) U/L Alkaline Phosphatase 226 H (45-117) U/L Total Protein 8.1 (6.4-8.2) gm/dl Albumin 3.4 (3.4-5.0) gm/dl Globulin 4.7 H (2.5-4.0) gm/dl Albumin/Globulin Ratio 0.7 L (0.9-2) Urine Color Yellow Urine Appearance Clear (Clear) Urine pH >= 9.0 H (4.5-7.5) Ur Specific [place] 1.011 (1.000-1.030) Urine Protein 2+ H (Negative) Urine Glucose (UA) Negative (Negative) Urine Ketones Negative (Negative) Urine Blood Trace H (Negative) Urine Nitrite Negative (Negative) Urine Bilirubin Negative (Negative) Urine Urobilinogen Negative (Negative) Ur Leukocyte Esterase Trace H (Negative) Urine WBC (Auto) 10-30 H (0-5) /hpf Urine RBC (Auto) 5-10 H (0-4) /hpf U Hyaline Cast (Auto) 1-5 (0-5) /lpf U Epithel Cells (Auto) 10-20 H (0-5) /lpf Urine Bacteria (Auto) 1+ H (Negative) Blood Type Antibody Screen 12/24/19 12/24/19 Range/Units 04:26 04:26 WBC 6.85 (4.8-10.8) K/uL RBC 3.82 L (4.2-5.4) M/uL Hgb 11.3 L (12.0-16.0) g/dL Hct 34.8 L (37-47) % MCV 91.1 (80-100) fL MCH 29.6 (25-34) pg MCHC 32.5 (32-36) g/dL RDW Std Deviation 54.9 H (36.4-46.3) fL RDW Coeff of Darci 16.5 H (11.5-14.5) % Plt Count 117 L (130-400) K/uL MPV 9.8 (7.4-10.4) fL Immature Gran % (Auto) 0.7 % Neut % (Auto) 80.0 % Lymph % (Auto) 13.1 % [place] % (Auto) 4.8 % Eos % (Auto) 1.3 % Baso % (Auto) 0.1 % Neut # (Auto) 5.47 (1.4-6.5) K/uL Lymph # (Auto) 0.90 L (1.2-3.4) K/uL [place] # (Auto) 0.33 (0.11-0.59) K/uL Eos # (Auto) 0.09 (0-0.5) K/uL Baso # (Auto) 0.01 (0-0.2) K/uL Immature Gran # (Auto) 0.05 H (0.00-0.02) K/uL PT (9.0-12.0) Seconds INR (0.9-1.1) APTT (21.0-31.0) Seconds PTT Ratio Sodium (136-145) mmol/L Potassium (3.5-5.1) mmol/L Chloride (98-107) mmol/L Carbon Dioxide (21-32) mmol/L Anion Gap (3-11) BUN (7-18) mg/dl Creatinine (0.6-1.2) mg/dl Est Cr Clr Drug Dosing ml/min Est GFR ( Amer) Est GFR (Non-Af Amer) BUN/Creatinine Ratio (10-20) Glucose (70-99) mg/dl Calcium (8.5-10.1) mg/dl Total Bilirubin (0.2-1) mg/dl AST (15-37) U/L ALT (12-78) U/L Alkaline Phosphatase (45-117) U/L Total Protein (6.4-8.2) gm/dl Albumin (3.4-5.0) gm/dl Globulin (2.5-4.0) gm/dl Albumin/Globulin Ratio (0.9-2) Urine Color Urine Appearance (Clear) Urine pH (4.5-7.5) Ur Specific [place] (1.000-1.030) Urine Protein (Negative) Urine Glucose (UA) (Negative) Urine Ketones (Negative) Urine Blood (Negative) Urine Nitrite (Negative) Urine Bilirubin (Negative) Urine Urobilinogen (Negative) Ur Leukocyte Esterase (Negative) Urine WBC (Auto) (0-5) /hpf Urine RBC (Auto) (0-4) /hpf U Hyaline Cast (Auto) (0-5) /lpf U Epithel Cells (Auto) (0-5) /lpf Urine Bacteria (Auto) (Negative) Blood Type A Positive Antibody Screen NEGATIVE
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
--- NOTE | 2019-12-24 15:49 | XRay Report ---
LEFT WRIST 5 VIEWS CLINICAL HISTORY: Fall with left wrist injury. FINDINGS: 5 views of the left wrist are obtained. No prior studies are available for comparison at th e time of dictation. The skeletal structures are osteopenic. No fracture is seen. Mild osteoarthritic change is noted at the first carpometacarpal and metacarpophalangeal joints. There is mild degenerat marija narrowing at the radiocarpal articulation. The overlying soft tissues are normal as visualized. IMPRESSION: There is no radiographic evidence of left wrist fracture. Electronically signed by: Kodi Talley M.D. 12/24/2019 3:47 PM
[2019-12-24] MEDS ORDERED: HydrALAZINE HCL 20 MG/ML VIAL IV PRN (16:39)
--- NOTE | 2019-12-24 18:29 | Emergency Department Note ---
Impression & Plan Fracture of head of humerus, Fracture of multiple pubic rami ED Provider Note NAME: YARELI POE AGE: 79 SEX: F ARRIVES VIA: Ambulance INFORMANT: Patient, the patient's son ED PROVIDER(S): Sarah Hernandes DO CHIEF COMPLAINT: Fall PLAN: [facility] Fair MEDICAL DECISION MAKING: This is a 79-year-old female patient who fell getting out of bed tonight landing on her left side. X-rays confirmed a left humeral head fracture and pelvic fractures consisting of left-sided inferior and superior pubic rami fractures. The patient did not strike her head or lose consciousness. Laboratory studies are unremarkable. The patient will be evaluated by the [facility] service for further management. Triage Nursing notes reviewed and agree them. Additional history obtained from the patient's son who is at the bedside Prior medical records reviewed Vital Signs: reviewed and remarkable for hypertension Differential diagnosis: Clavicle fracture, shoulder dislocation, humeral head fracture, midshaft humerus fracture, hip fracture, hip dislocation, pelvis fracture ER treatment provided: IV Dilaudid x3 Laboratory studies: See below Imaging studies: Left shoulder x-ray: As per my interpretation-left humeral head fracture Left hip x-ray: As per my interpretation-left superior and inferior pubic rami fracture as per stat rad CT pelvis: Acute fractures of the left superior and inferior pubic rami. No definite evidence of acute acetabular or proximal femoral fractures. Chronic fracture of the right superior and inferior pubic rami. Generalized osteopenia. Wong balloon in bladder lumen. Stable low ventral abdominal wall hernia containing fat. HPI: 79/F arrives for evaluation of left hip pain and left shoulder pain. The patient suffered a fall at home after getting out of bed and landed on her left hip and left shoulder. She did not strike her head or lose consciousness. Patient had her cell phone with her and was able to call her son who lives in the same house. They called EMS and transported her here. ROS: See above HPI for pertinent positives & negatives. A total of 10 systems reviewed and were otherwise negative. PAST MEDICAL HISTORY:See Below PAST SURGICAL HISTORY:See Below FAMILY HISTORY:See Below SOCIAL HISTORY:See Below HOME MEDICATIONS:See list ALLERGIES:None VITALS:See Below PHYSICAL EXAMINATION: HEENT: Head - normocephalic and atraumatic. Pupils are equal, round, and reactive to light. Extraocular eye muscles are intact and sclera are anicteric. Ears - bilaterally patent canals with no evidence of hemotympanum. Nose - moist nasal mucosa without evidence of trauma or discharge. Mouth - moist buccal mucosa with no trauma to the teeth or signs of malocclusion. Neck: The neck is supple and there is no pain to palpation over the posterior cervical spine and no obvious step-offs or deformities. There is no JVD or tracheal deviation. Chest: There are no signs of deformities, contusions or abrasions to the chest wall. There is no obvious crepitus or paradoxical chest rise. Heart: Regular, rate, and rhythm. There is a normal S1 and S2 with no murmurs, clicks, or gallops appreciated. Lungs: Clear to auscultation bilaterally with no wheezes, rales, or rhonchi. Abdomen: Soft, completely nontender, nondistended, with good bowel sounds. There is no sign of trauma such as contusions, abrasions or penetrations. There are no palpable pulsatile masses or hepatosplenomegaly. There is no guarding, rigidity, or rebound noted. Pelvis: Stable to rock and compression. Extremities: No obvious trauma, deformities, contusions, or edema. There are e asily palpable peripheral pulses. The patient has exquisite tenderness to palpation over the left humeral head and upper portion of the left upper extremity. She also has discomfort with palpation over the left ASIS. Neuro: The patient is awake and alert and easily able to follow commands. Muscle strength is 5 out of 5 in all 4 extremities. Otherwise, neuro exam is unremarkable. ED COURSE: The patient was evaluated in room C7. A complete history and physical was performed. Laboratory studies were drawn as above. Patient was given 0.5 mg of IV Dilaudid for her pain. This gave her moderate relief of her discomfort. She had plain films of her left shoulder, left hip and pelvis. I reviewed the results with the patient and her son. She will go for CAT scan of the pelvis to further evaluate the left acetabulum. The patient required additional dose of IV Dilaudid for pain and was also given a dose of IV Zofran. Once the patient returned from CAT scan, I reviewed the results of the CAT scan with the patient. [facility] and [facility] will evaluate for further management. 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 Beliefs That Will Affect Care: None marital status: Single Current Living Situation: Family Current Living Situation Comment: lives with son current occupational status: retired Other Information That Helps Us Care for You: No Feels Safe at Home: Yes Safety Concerns: Feels Safe At This Time Allergies Allergies Allergy/AdvReac Type Severity Reaction Status Date / Time No Known Allergies Allergy Verified 12/24/19 04:25 Home Meds Home Medications Medication Instructions Recorded Confirmed calcium carbonate-vitamin D3 1 tab PO BID 06/03/18 12/24/19 [Calcium 500 + D] cholecalciferol (vitamin D3) 2,000 unit PO HS 06/03/18 12/24/19 [Vitamin D3] everolimus (immunosuppressive) 1 mg PO BID 06/03/18 12/24/19 ferrous sulfate 325 mg PO HS 06/03/18 12/24/19 nebivolol 10 mg PO QAM 06/03/18 12/24/19 Nepro Carb Steady 1 ea PO BID 11/04/19 12/24/19 hydralazine 10 mg PO BID 11/04/19 12/24/19 Previous Rx's Medication Instructions Recorded zolpidem 5 mg PO HS PRN #10 tab 08/23/18 Results & Data (ED) Vital Signs Vital Signs - 24 hr 12/24/19 04:37 12/24/19 04:44 12/24/19 05:00 Pulse Rate 74 78 79 Pulse Rate [Right Finger] Pulse Rate from SpO2 Sensor 74 78 79 Pulse Rhythm [Right Finger] Pulse Strength [Right Finger] Respiratory Rate 18 23 21 Respiratory Depth Blood Pressure 169/67 H 183/76 H 176/77 H Blood Pressure [Right Calf] Blood Pressure Mean 119 86 121 Blood Pressure Mean [Right Calf] Blood Pressure Position [Right Calf] Pulse Oximetry 92 94 94 Oxygen Delivery Method 12/24/19 06:08 12/24/19 06:31 12/24/19 07:00 Pulse Rate 84 82 84 Pulse Rate [Right Finger] Pulse Rate from SpO2 Sensor 84 82 85 Pulse Rhythm [Right Finger] Pulse Strength [Right Finger] Respiratory Rate 18 17 18 Respiratory Depth Blood Pressure 198/74 H 200/68 H 187/59 H Blood Pressure [Right Calf] Blood Pressure Mean 116 112 87 Blood Pressure Mean [Right Calf] Blood Pressure Position [Right Calf] Pulse Oximetry 95 95 94 Oxygen Delivery Method Room Air 12/24/19 07:31 12/24/19 09:10 Pulse Rate Pulse Rate [Right Finger] 85 87 Pulse Rate from SpO2 Sensor Pulse Rhythm [Right Finger] Regular Pulse Strength [Right Finger] Normal Respiratory Rate 20 16 Respiratory Depth Normal Blood Pressure Blood Pressure [Right Calf] 199/58 H 187/89 H Blood Pressure Mean Blood Pressure Mean [Right Calf] 105 121 Blood Pressure Position [Right Calf] Lying Pulse Oximetry 97 Oxygen Delivery Method Laboratory Data Result diagrams: 12/24/19 04:26 12/24/19 04:26 Lab Results 12/24/19 12/24/19 12/24/19 Range/Units 04:26 04:26 04:26 WBC 6.85 (4.8-10.8) K/uL RBC 3.82 L (4.2-5.4) M/uL Hgb 11.3 L (12.0-16.0) g/dL Hct 34.8 L (37-47) % MCV 91.1 (80-100) fL MCH 29.6 (25-34) pg MCHC 32.5 (32-36) g/dL RDW Std Deviation 54.9 H (36.4-46.3) fL RDW Coeff of Darci 16.5 H (11.5-14.5) % Plt Count 117 L (130-400) K/uL MPV 9.8 (7.4-10.4) fL Immature Gran % (Auto) 0.7 % Neut % (Auto) 80.0 % Lymph % (Auto) 13.1 % [place] % (Auto) 4.8 % Eos % (Auto) 1.3 % Baso % (Auto) 0.1 % Neut # (Auto) 5.47 (1.4-6.5) K/uL Lymph # (Auto) 0.90 L (1.2-3.4) K/uL [place] # (Auto) 0.33 (0.11-0.59) K/uL Eos # (Auto) 0.09 (0-0.5) K/uL Baso # (Auto) 0.01 (0-0.2) K/uL Immature Gran # (Auto) 0.05 H (0.00-0.02) K/uL PT 11.7 (9.0-12.0) Seconds INR 1.1 (0.9-1.1) APTT 28.1 (21.0-31.0) Seconds PTT Ratio 1.0 Sodium (136-145) mmol/L Potassium (3.5-5.1) mmol/L Chloride (98-107) mmol/L Carbon Dioxide (21-32) mmol/L Anion Gap (3-11) BUN (7-18) mg/dl Creatinine (0.6-1.2) mg/dl Est Cr Clr Drug Dosing ml/min Est GFR ( Amer) Est GFR (Non-Af Amer) BUN/Creatinine Ratio (10-20) Glucose (70-99) mg/dl Calcium (8.5-10.1) mg/dl Total Bilirubin (0.2-1) mg/dl AST (15-37) U/L ALT (12-78) U/L Alkaline Phosphatase (45-117) U/L Total Protein (6.4-8.2) gm/dl Albumin (3.4-5.0) gm/dl Globulin (2.5-4.0) gm/dl Albumin/Globulin Ratio (0.9-2) Urine Color Urine Appearance (Clear) Urine pH (4.5-7.5) Ur Specific [place] (1.000-1.030) Urine Protein (Negative) Urine Glucose (UA) (Negative) Urine Ketones (Negative) Urine Blood (Negative) Urine Nitrite (Negative) Urine Bilirubin (Negative) Urine Urobilinogen (Negative) Ur Leukocyte Esterase (Negative) Urine WBC (Auto) (0-5) /hpf Urine RBC (Auto) (0-4) /hpf U Hyaline Cast (Auto) (0-5) /lpf U Epithel Cells (Auto) (0-5) /lpf Urine Bacteria (Auto) (Negative) Blood Type A Positive Antibody Screen NEGATIVE 12/24/19 12/24/19 Range/Units 04:26 05:30 WBC (4.8-10.8) K/uL RBC (4.2-5.4) M/uL Hgb (12.0-16.0) g/dL Hct (37-47) % MCV (80-100) fL MCH (25-34) pg MCHC (32-36) g/dL RDW Std Deviation (36.4-46.3) fL RDW Coeff of Darci (11.5-14.5) % Plt Count (130-400) K/uL MPV (7.4-10.4) fL Immature Gran % (Auto) % Neut % (Auto) % Lymph % (Auto) % [place] % (Auto) % Eos % (Auto) % Baso % (Auto) % Neut # (Auto) (1.4-6.5) K/uL Lymph # (Auto) (1.2-3.4) K/uL [place] # (Auto) (0.11-0.59) K/uL Eos # (Auto) (0-0.5) K/uL Baso # (Auto) (0-0.2) K/uL Immature Gran # (Auto) (0.00-0.02) K/uL PT (9.0-12.0) Seconds INR (0.9-1.1) APTT (21.0-31.0) Seconds PTT Ratio Sodium 138 (136-145) mmol/L Potassium 5.1 (3.5-5.1) mmol/L Chloride 104 (98-107) mmol/L Carbon Dioxide 28 (21-32) mmol/L Anion Gap 6.0 (3-11) BUN 44 H (7-18) mg/dl Creatinine 4.97 H* (0.6-1.2) mg/dl Est Cr Clr Drug Dosing 6.7 ml/min Est GFR ( Amer) 9.1 Est GFR (Non-Af Amer) 7.8 BUN/Creatinine Ratio 8.8 L (10-20) Glucose 112 H (70-99) mg/dl Calcium 8.6 (8.5-10.1) mg/dl Total Bilirubin 0.5 (0.2-1) mg/dl AST 37 (15-37) U/L ALT 24 (12-78) U/L Alkaline Phosphatase 226 H (45-117) U/L Total Protein 8.1 (6.4-8.2) gm/dl Albumin 3.4 (3.4-5.0) gm/dl Globulin 4.7 H (2.5-4.0) gm/dl Albumin/Globulin Ratio 0.7 L (0.9-2) Urine Color Yellow Urine Appearance Clear (Clear) Urine pH >= 9.0 H (4.5-7.5) Ur Specific [place] 1.011 (1.000-1.030) Urine Protein 2+ H (Negative) Urine Glucose (UA) Negative (Negative) Urine Ketones Negative (Negative) Urine Blood Trace H (Negative) Urine Nitrite Negative (Negative) Urine Bilirubin Negative (Negative) Urine Urobilinogen Negative (Negative) Ur Leukocyte Esterase Trace H (Negative) Urine WBC (Auto) 10-30 H (0-5) /hpf Urine RBC (Auto) 5-10 H (0-4) /hpf U Hyaline Cast (Auto) 1-5 (0-5) /lpf U Epithel Cells (Auto) 10-20 H (0-5) /lpf Urine Bacteria (Auto) 1+ H (Negative) Blood Type Antibody Screen Administered Medications Everolimus (Everolimus 0.5 Mg Tablet) 2 ea PO BID DAGOBERTO Stop: 01/23/20 20:59 Last Admin: 12/24/19 20:12 Dose: 2 ea Documented by: [id number] Ferrous Sulfate (Ferrous Sulfate 325 Mg Tab) 325 mg PO HS [facility] Stop: 01/23/20 20:59 Last Admin: 12/24/19 20:33 Dose: 325 mg Documented by: [id number] Hydralazine HCl (Hydralazine 10 Mg Tab) 10 mg PO BID DAGOBERTO Stop: 01/23/20 13:59 Last Admin: 12/24/19 20:11 Dose: 10 mg Documented by: [id number] Admin: 12/24/19 14:51 Dose: 10 mg Documented by: [id number] Ceftriaxone Sodium 1,000 mg/ (Dextrose) 50 mls @ 100 mls/hr IV Q24H DAGOBERTO; P rotocol Stop: 12/29/19 11:44 Last Infusion: 12/24/19 17:18 Dose: 0 mls/hr Documented by: [id number] Admin: 12/24/19 14:50 Dose: 100 mls/hr Documented by: [id number] Metoprolol Tartrate (Metoprolol Tartrate 25 Mg Tab) 50 mg PO BID DAGOBERTO Stop: 01/23/20 14:29 Last Admin: 12/24/19 20:12 Dose: 50 mg Documented by: [id number] Admin: 12/24/19 14:51 Dose: 50 mg Documented by: [id number] Morphine Sulfate (Morphine Sulfate 2 Mg/Ml Carp) 2 mg IV Q3H PRN PRN Reason: Pain Stop: 01/07/20 13:59 Last Admin: 12/24/19 21:17 Dose: 2 mg Documented by: [id number] Admin: 12/24/19 14:13 Dose: 2 mg Documented by: [id number] Multivitamins/Minerals (Calcium 600mg + Vit D 400 Iu Tab) 1 tab PO BID DAGOBERTO Stop: 01/23/20 20:59 Last Admin: 12/24/19 20:33 Dose: 1 tab Documented by: [id number] Vitamin B Complex/Folic Acid (Nephrocaps) 1 cap PO BID DAGOBERTO Stop: 01/23/20 20:59 Last Admin: 12/24/19 20:15 Dose: 1 cap Documented by: [id number] Vitamin D (Cholecalciferol 1,000 Units 25 Mcg Tab) 2,000 units PO HS DAGOBERTO Stop: 01/23/20 20:59 Last Admin: 12/24/19 20:12 Dose: 2,000 units Documented by: [id number] Zolpidem Tartrate (Zolpidem Tartrate 5 Mg Tab) 5 mg PO HS PRN PRN Reason: sleep Stop: 01/23/20 13:40 Last Admin: 12/24/19 23:23 Dose: 5 mg Documented by: [id number] Discontinued Medications Acetaminophen (Acetaminophen 500 Mg Tab) 1,000 mg PO BID DAGOBERTO Stop: 01/23/20 13:59 Last Admin: 12/24/19 14:48 Dose: Not Given Documented by: [id number] Hydromorphone HCl (Hydromorphone Inj 0.5 Mg/0.5 Ml Syr) 0.5 mg IV NOW STA Stop: 12/24/19 04:18 Last Admin: 12/24/19 04:36 Dose: 0.5 mg Documented by: [id number] Hydromorphone HCl (Hydromorphone Inj 0.5 Mg/0.5 Ml Syr) 0.5 mg IV NOW STA Stop: 12/24/19 05:32 Last Admin: 12/24/19 05:49 Dose: 0.5 mg Documented by: [id number] Miscellaneous (Everolimus: Order Awaiting Action) 1 ea N/A QS DAGOBERTO Stop: 01/23/20 14:29 Last Admin: 12/24/19 14:50 Dose: Not Given Documented by: [id number] Discharge Plan Visit Data Chief Complaint: Fall Stated Complaint: FALL/SHOULDER/HIP PAIN ED Provider: Sarah Hernandes Discharge Problem: Fracture of head of humerus, Fracture of multiple pubic rami Patient Disposition: Admitted As Inpatient Discharge Instructions Interventions: ED Discharge Assessment Last Done: 12/24/19 13:04 Discharge Problem: Fracture of head of humerus Qualifiers: Encounter type: initial encounter Fracture type: closed Laterality: left Qualified Code(s): S42.292A - Other displaced fracture of upper end of left humerus, initial encounter for closed fracture Fracture of multiple pubic rami Qualifiers: Encounter type: initial encounter Fracture type: closed Laterality: left Qualified Code(s): S32.592A - Other specified fracture of left pubis, initial encounter for closed fracture
--- NOTE | 2019-12-24 19:15 | Electrocardiogram Report ---
Test Reason : Blood Pressure : / mmHG Vent. Rate : 075 BPM Atrial Rate : 075 BPM P-R Int : 154 ms QRS Dur : 088 ms QT Int : 430 ms P-R-T Axes : 037 -03 024 degrees QTc Int : 480 ms Normal sinus rhythm Normal ECG When compared with ECG of 05-NOV-2019 07:02, No significant change was found Confirmed by Kevin Cardenas ([id number]) on 12/24/2019 7:15:41 PM Referred By: REFERRED SELF Confirmed By:Davey Cardenas
[2019-12-24] MEDS: CHOLECALCIFEROL 1,000 UNITS 25 MCG TAB PO SCH (20:12)
[2019-12-24] MEDS: NEPHROCAPS PO SCH (20:15)
[2019-12-24] MEDS: FERROUS SULFATE 325 MG TAB PO SCH (20:33)
[2019-12-24] MEDS: CALCIUM 600MG + VIT D 400 IU TAB PO SCH (20:33)
[2019-12-24] MEDS: ZOLPIDEM TARTRATE 5 MG TAB PO PRN (23:23)
[2019-12-25 05:57] LABS: Hematocrit (blood only) 30.6 % (37-47); Hemoglobin 9.8 g/dL (12.0-16.0); Mean Corpuscular Hemoglobin 28.7 pg (25-34); Mean Corpuscular Volume 89.7 fL (80-100); Mean Platelet Volume 10.5 fL (7.4-10.4); Platelet Count 101 K/uL (130-400); RDW Coefficient of Variation 16.5 % (11.5-14.5); RDW Standard Deviation 54.6 fL (36.4-46.3); Red Blood Count 3.41 M/uL (4.2-5.4); White Blood Count 5.05 K/uL (4.8-10.8)
[2019-12-25 06:54] LABS: BUN Creatinine Ratio 9.4 (10-20); Creatinine Clr Calc Pharmacy 5.8 ml/min; Est GFR (African American) 7.7; Est GFR (Non-African American) 6.6; Potassium 5.6 mmol/L (3.5-5.1)
[2019-12-25] MEDS ORDERED: SODIUM CHLORIDE 0.9% 1000ML 1,000 ML IV PRN (07:00)
--- NOTE | 2019-12-25 07:14 | Hospitalist Progress Note ---
Date of Service December 25, 2019 Assessment & Plan (1) Fall: (2) Pelvic ring fracture: (3) Left humeral fracture: This is a 79yo F with a PMH of autoimmune hepatitis, history of liver transplant in 2005 complicated by infection with repeat transplant 2006, CKD V on dialysis MWF, hemorrhoids and other medical problems listed below who presents with left shoulder and groin pain after a fall at home overnight and was found to have acute impacted left humeral neck fracture and acute left pubic ring fracture. -Fell after ambulating back to bed from bathroom while looking at phone. Denies head trauma or LOC -Left shoulder XR with impacted left humeral neck fracture that extends into the humeral head, likely acute -CT pelvis with acute left pubic ring fractures with mild surrounding hemorrhage and intramuscular hemorrhage is noted within the left obturator internus -Hemodynamically stable with hgb at baseline of 11 -Discussed with orthopedic service, who feel that both fracture are non- operative and they will evaluate during admission Pelvic fracture: WBAT with 4 prong stabilization cane OOB from bed to chair and bathroom DVT prophy deferred to medical service due to rectal bleeding and anemia, SCDs PT/OT eval Left humerus fx: Nonweightbearing in Left UE with sling use when ambulatory Ice with EZ wrap Use care when moving arm to initiate dialysis treatment PO pain control per medicine service discretion. (Patient declining Tylenol, and tramadol, as she states it does not work for her. Discussed that morphine is not very safe medication for kidney patient. Agrees to try lidocaine patch on her left shoulder) Follow-up [facility] 2 weeks with x-rays -LLE weightbearing as tolerated, LUE nonweightbearing -PT/OT evaluation. discharge planning for likely SNF placement (currently lives with family) (4) UTI (urinary tract infection): Abnormal UA. Will treat empirically with Rocephin while urine culture results. Wong in place (5) ESRD (end stage renal disease) on dialysis: ESRD (end stage renal disease) on MWF dialysis - missed this morning -Routine nephrology consult for HD (6) Autoimmune hepatitis: Hx of liver transplant x 2 for AIH, second transplant done for infection -Continue Everolimus (7) HTN (hypertension): Continue hydralazine, nebivolol (8) Anemia: Hgb ~ 11 on admission. Continue to monitor in setting of pelvic fracture, ongoing bleeding hemorrhoids (9) Insomnia: Ambien HS as needed but caution while patient also receiving narcotics DVT Ppx: SCDs Code status: FULL PCP: Leena Dispo: Admit to med surg. Discharge planning ordered Admission and Anticipated Discharge Date Admission Date: December 24, 2019 Subjective Patient underwent dialysis earlier today. Yesterday she declined as she was in pain. Currently she is sitting up in the bed, having lunch. She says that she was uncomfortable during dialysis because of the position she had to stay in. She is saying that her left shoulder/left upper back is bothering her, discussed that we can try lidocaine patch. She declines Tylenol even lower dosage, and states that the tramadol does not work for her. I explained that morphine is not very safe for kidney patients. She currently denies any fevers, chills, chest pain, abdominal pain, nausea or vomiting. Her pain is in her left upper extremity, shoulder mostly. Review of Systems Review of Systems: All systems reviewed & are unremarkable except as noted in HPI & below Physical Exam Physical Exam: General Appearance: Elderly female, sitting up in bed, WD/WN, vitals as above, conversing easily Head: normocephalic, atraumatic Eyes: normal inspection, PERRL, conjunctivae normal, anicteric sclerae ENT: external ear and nose normal, oropharynx normal Neck: normal visual inspection, trachea midline, no thyromegaly Respiratory: normal respiratory effort, lungs clear to auscultation, no wheeze, rales, rhonchi. No accessory muscle use Cardiovascular: regular rate, rhythm, + soft systolic murmur, normal peripheral pulses, no BLE edema Abdomen/GI: normal bowel sounds, soft, nontender to palpation Extremities/Musculoskeletal: LUE in sling, TTP along shoulder and upper arm. NVI distally. TTP of left upper leg and groin, pain with mvmt. No deformities noted. Extremities motor strength 5/5 Neurologic: PERRL, EOMI, no dysarthria, CN's II-XI intact bilaterally and moves all extremities Psychiatric: A+Ox3, anxious mood Skin: no rashes, normal color, warm/dry Results & Data Results & Data ([facility]) Vital Signs (Past 12 Hours) Vital Signs Temp Pulse Pulse Resp BP Pulse Ox 12/24/19 23:17 36.8 C 72 14 150/73 H 92 09/09/20 20:07 92 H 193/79 H Laboratory Results 12/25/19 12/25/19 Range/Units 05:21 05:21 WBC 5.05 (4.8-10.8) K/uL RBC 3.41 L (4.2-5.4) M/uL Hgb 9.8 L (12.0-16.0) g/dL Hct 30.6 L (37-47) % MCV 89.7 (80-100) fL MCH 28.7 (25-34) pg MCHC 32.0 (32-36) g/dL RDW Std Deviation 54.6 H (36.4-46.3) fL RDW Coeff of Darci 16.5 H (11.5-14.5) % Plt Count 101 L (130-400) K/uL MPV 10.5 H (7.4-10.4) fL Sodium 139 (136-145) mmol/L Potassium 5.6 H (3.5-5.1) mmol/L Chloride 107 (98-107) mmol/L Carbon Dioxide 24 (21-32) mmol/L Anion Gap 8.0 (3-11) BUN 54 H (7-18) mg/dl Creatinine 5.70 H* D (0.6-1.2) mg/dl Est Cr Clr Drug Dosing 5.8 ml/min Est GFR ( Amer) 7.7 Est GFR (Non-Af Amer) 6.6 BUN/Creatinine Ratio 9.4 L (10-20) Glucose 96 (70-99) mg/dl Calcium 9.0 (8.5-10.1) mg/dl Medications Administered Current Inpatient Medications Everolimus (Everolimus 0.5 Mg Tablet) 2 ea PO BID DAGOBERTO Stop: 01/23/20 20:59 Last Admin: 12/24/19 20:12 Dose: 2 ea Documented by: Ferrous Sulfate (Ferrous Sulfate 325 Mg Tab) 325 mg PO HS DAGOBERTO Stop: 01/23/20 20:59 Last Admin: 12/24/19 20:33 Dose: 325 mg Documented by: Hydralazine HCl (Hydralazine 10 Mg Tab) 10 mg PO BID DAGOBERTO Stop: 01/23/20 13:59 Last Admin: 12/24/19 20:11 Dose: 10 mg Documented by: Hydralazine HCl (Hydralazine Hcl 20 Mg/Ml Vial) 5 mg IV Q6H PRN PRN Reason: SBP > 180 Stop: 01/23/20 16:38 Ceftriaxone Sodium 1,000 mg/ (Dextrose) 50 mls @ 100 mls/hr IV Q24H [facility]; Protocol Stop: 12/29/19 11:44 Last Infusion: 12/24/19 17:18 Dose: Infused Documented by: Sodium Chloride (Nss 1000ml) 1,000 mls @ 0 mls/hr IV .Q0M PRN PRN Reason: For Hemodialysis Use ONLY Stop: 12/25/19 12:59 Metoprolol Tartrate (Metoprolol Tartrate 25 Mg Tab) 50 mg PO BID [facility] Stop: 01/23/20 14:29 Last Admin: 12/24/19 20:12 Dose: 50 mg Documented by: Morphine Sulfate (Morphine Sulfate 2 Mg/Ml Carp) 2 mg IV Q3H PRN PRN Reason: Pain Stop: 01/07/20 13:59 Last Admin: 12/24/19 21:17 Dose: 2 mg Documented by: Multivitamins/Minerals (Calcium 600mg + Vit D 400 Iu Tab) 1 tab PO BID DAGOBERTO Stop: 01/23/20 20:59 Last Admin: 12/24/19 20:33 Dose: 1 tab Documented by: Vitamin B Complex/Folic Acid (Nephrocaps) 1 cap PO BID DAGOBERTO Stop: 01/23/20 20:59 Last Admin: 12/24/19 20:15 Dose: 1 cap Documented by: Vitamin D (Cholecalciferol 1,000 Units 25 Mcg Tab) 2,000 units PO HS DAGOBERTO Stop: 01/23/20 20:59 Last Admin: 12/24/19 20:12 Dose: 2,000 units Documented by: Zolpidem Tartrate (Zolpidem Tartrate 5 Mg Tab) 5 mg PO HS PRN PRN Reason: sleep Stop: 01/23/20 13:40 Last Admin: 12/24/19 23:23 Dose: 5 mg Documented by: (1) HTN (hypertension) Hypertension type: essential hypertension Qualified Code(s): I10 - Essential (primary) hypertension
[2019-12-25] MEDS: CALCIUM 600MG + VIT D 400 IU TAB PO SCH ×2 (07:49→20:21)
[2019-12-25] MEDS: METOPROLOL TARTRATE 25 MG TAB PO SCH ×2 (07:49→20:21)
[2019-12-25] MEDS: HydrALAZINE 10 MG TAB PO SCH ×2 (07:50→20:22)
[2019-12-25] MEDS: NEPHROCAPS PO SCH ×2 (08:25→20:22)
[2019-12-25] MEDS: MoRPHine SULFATE 2 MG/ML CARP IV PRN ×4 (08:30→21:08)
--- NOTE | 2019-12-25 09:55 | Nephrology Progress Note ---
Date of Service December 25, 2019 Assessment & Plan (1) ESRD (end stage renal disease) on dialysis: * Discussed HD w/ patient this morning. HD is needed to correct hyperkalemia. Explained that patient can remain in her bed and L arm does not need to be moved to access AVF. She is now agreeable to a 2 hour treatment later this morning to correct serum potassium. Orders have been placed in EMR and HD RN notified (2) HTN (hypertension): * Continue home BP regimen * Can provide additional doses of hydralazine IV PRN * HTN is likely being driven by pain. Expect BP to improve as pain is controlled (3) Anemia: * Hgb was 11.3 on admission. Will monitor. No acute indication for KALLIE therapy (4) Pelvic ring fracture: * Patient has proximal L humerus and pelvic ring fracture. Her L arm is in a sling and she is WBAT for pelvic ring fracture. * Will likely require SNF following hospitalization (5) Hx of liver transplant: Admission and Anticipated Discharge Date Admission Date: December 24, 2019 Subjective Ms. Li was seen & examined in her hospital room this morning. She declined 1st shift dialysis today. Review of Systems Constitutional: + weakness; no fever Eyes: no problem reported Ear, Nose, Mouth, Throat: no problem reported Respiratory: no dyspnea Cardiovascular: no chest pain, no palpitations and no edema Gastrointestinal: no abdominal pain and no diarrhea/loose stools Musculoskeletal: + back pain Integumentary: no rash Neurologic: + falls; no dizziness Physical Exam Constitutional: + frail appearing; not in distress Eyes: PERRL, conjunctivae normal, anicteric sclerae ENMT: external ear and nose normal, oropharynx normal Neck: trachea midline, no thyromegaly Respiratory: normal respiratory effort, lungs clear to auscultation Cardiovascular: RRR, no murmur, no edema Extremities: + AV fistula (+ bruit) Gastrointestinal (Abdomen): normal bowel sounds, soft, nontender, no hepatosplenomegaly Musculoskeletal: Extremities: no cyanosis Skin: no rashes, warm and dry Neurologic: awake; not confused Results & Data ([place]) Vital Signs (Past 12 Hours) Vital Signs Temp Pulse Pulse Resp BP Pulse Ox 12/25/19 07:13 36.7 C 77 18 169/69 H 93 12/24/19 23:17 36.8 C 72 14 150/73 H 92 Laboratory Results Laboratory Tests 12/25/19 12/25/19 05:21 05:21 WBC 5.05 Hgb 9.8 L Hct 30.6 L Plt Count 101 L Sodium 139 Potassium 5.6 H Chloride 107 Carbon Dioxide 24 BUN 54 H Creatinine 5.70 H* D Glucose 96 PG Care Time/CCT Total # of Minutes Spent Total Time Spent with Patient: Total time spent is greater than 50% in coordination of care (as documented) at patient's floor/unit and/or counseling patient: Coding Level of Care Code 00901 Subseq Hosp Care Lvl 3 Diagnoses ESRD (end stage renal disease) on dialysis N18.6; Z99.2 HTN (hypertension) I10 Hypertension type: essential hypertension Anemia D64.9 Pelvic ring fracture S32.810A Hx of liver transplant Z94.4 (1) HTN (hypertension) Hypertension type: essential hypertension Qualified Code(s): I10 - Essential (primary) hypertension
[2019-12-25] MEDS ORDERED: TRAMADOL HCL 50 MG TABLET PO PRN (10:36)
[2019-12-25] MEDS: ACETAMINOPHEN 500 MG TAB PO SCH ×3 (12:43→23:41)
[2019-12-25] MEDS: LIDOCAINE 5% 1 PATCH TD SCH (14:19)
[2019-12-25] MEDS: cefTRIAXone SODIUM 1,000 MG in DEXTROSE 5% 50 ML IV SCH (14:30)
[2019-12-25] MEDS: FERROUS SULFATE 325 MG TAB PO SCH (20:22)
[2019-12-25] MEDS: CHOLECALCIFEROL 1,000 UNITS 25 MCG TAB PO SCH (20:22)
[2019-12-25] MEDS: ZOLPIDEM TARTRATE 5 MG TAB PO PRN (23:26)
[2019-12-26] MEDS: ACETAMINOPHEN 500 MG TAB PO SCH ×4 (05:14→23:24)
[2019-12-26 06:17] LABS: Hematocrit (blood only) 29.3 % (37-47); Hemoglobin 9.3 g/dL (12.0-16.0); Mean Corpuscular Hemoglobin 28.3 pg (25-34); Mean Corpuscular Hgb Conc 31.7 g/dL (32-36); Mean Corpuscular Volume 89.1 fL (80-100); RDW Coefficient of Variation 15.9 % (11.5-14.5); RDW Standard Deviation 51.9 fL (36.4-46.3); Red Blood Count 3.29 M/uL (4.2-5.4)
[2019-12-26 06:41] LABS: Mean Platelet Volume 10.2 fL (7.4-10.4); Platelet Count 91 K/uL (130-400)
[2019-12-26 06:42] LABS: Platelet Estimate Decreased (Normal)
[2019-12-26 07:03] LABS: BUN Creatinine Ratio 7.5 (10-20); Calcium 8.3 mg/dl (8.5-10.1); Creatinine Clr Calc Pharmacy 8.1 ml/min; Est GFR (African American) 11.2; Est GFR (Non-African American) 9.6; Potassium 4.9 mmol/L (3.5-5.1)
--- NOTE | 2019-12-26 08:23 | Hospitalist Progress Note ---
Date of Service December 26, 2019 Assessment & Plan (1) Fall: (2) Pelvic ring fracture: (3) Left humeral fracture: This is a 79yo F with a PMH of autoimmune hepatitis, history of liver transplant in 2005 complicated by infection with repeat transplant 2006, CKD V on dialysis MWF, hemorrhoids and other medical problems listed below who presents with left shoulder and groin pain after a fall at home overnight and was found to have acute impacted left humeral neck fracture and acute left pubic ring fracture. -Fell after ambulating back to bed from bathroom while looking at phone. Denies head trauma or LOC -Left shoulder XR with impacted left humeral neck fracture that extends into the humeral head, likely acute -CT pelvis with acute left pubic ring fractures with mild surrounding hemorrhage and intramuscular hemorrhage is noted within the left obturator internus -Hemodynamically stable with hgb at baseline of 11 -Discussed with orthopedic service, who feel that both fracture are non- operative and they will evaluate during admission Pelvic fracture: WBAT with 4 prong stabilization cane OOB from bed to chair and bathroom DVT prophy deferred to medical service due to rectal bleeding and anemia, SCDs PT/OT eval Left humerus fx: Nonweightbearing in Left UE with sling use when ambulatory Ice with EZ wrap Use care when moving arm to initiate dialysis treatment PO pain control per medicine service discretion. (Patient declining Tylenol, and tramadol, as she states it does not work for her. Discussed that morphine is not very safe medication for kidney patient. Agrees to try lidocaine patch on her left shoulder) Follow-up [facility] 2 weeks with x-rays -LLE weightbearing as tolerated, LUE nonweightbearing -PT/OT evaluation. discharge planning for likely Rehab or SNF placement (currently lives with family) -Patient however has difficulty working with PT due to pain. She declines Tylenol due to history of liver transplant, even lower doses of Tylenol. She refuses tramadol as well as she says it does not work. Has tramadol at home for back pain and it does not work for her. Lidocaine patch on her shoulder seems to be helping. However patient keeps using IV morphine. Will order p.o. oxycodone as needed (4) UTI (urinary tract infection): Abnormal UA. Will treat empirically with Rocephin while urine culture results. Wong in place -Urine culture positive for Klebsiella pneumonia, continue Rocephin (5) ESRD (end stage renal disease) on dialysis: ESRD (end stage renal disease) on MWF dialysis -plan for 2-hour dialysis session tomorrow December 26 -Routine nephrology consult for HD (6) Autoimmune hepatitis: Hx of liver transplant x 2 for AIH, second transplant done for infection -Continue Everolimus (7) HTN (hypertension): Continue hydralazine, nebivolol (8) Anemia: Hgb ~ 11 on admission. Now down to 9.3, plan for KALLIE with HD by nephrology -continue to monitor in setting of pelvic fracture, ongoing bleeding hemorrhoids (9) Insomnia: Ambien HS as needed but caution while patient also receiving narcotics DVT Ppx: SCDs Code status: FULL PCP: Leena Dispo: Admit to med surg. Discharge planning ordered Admission and Anticipated Discharge Date Admission Date: December 24, 2019 Subjective Patient is lying in bed, in no acute distress. States that lidocaine patch on her shoulder is helpful. She says that she was too painful to work with PT, but still did not take any tramadol that is ordered for her. She says that she has tramadol at home for her back pain and it does not work. She also previously stated that she should not be on Tylenol because of her liver transplant. Therefore she continues to use IV morphine, says that usually lasts for about an hour and a half and then the pain comes back again. She otherwise denies any chest pain, shortness of breath, fevers, chills, dizziness or lightheadedness. She also denies abdominal pain or nausea or vomiting. Review of Systems Review of Systems: All systems reviewed & are unremarkable except as noted in HPI & below Constitutional: no fever and no chills Respiratory: no cough and no dyspnea Cardiovascular: no chest pain and no palpitations Gastrointestinal: no abdominal pain, no nausea and no vomiting Physical Exam Physical Exam: General Appearance: Elderly female, sitting up in bed, WD/WN, vitals as above, conversing easily Head: normocephalic, atraumatic Eyes: normal inspection, PERRL, conjunctivae normal, anicteric sclerae ENT: external ear and nose normal, oropharynx normal Neck: normal visual inspection, trachea midline, no thyromegaly Respiratory: normal respiratory effort, lungs clear to auscultation, no wheeze, rales, rhonchi. No accessory muscle use Cardiovascular: regular rate, rhythm, + soft systolic murmur, normal peripheral pulses, no BLE edema Abdomen/GI: normal bowel sounds, soft, nontender to palpation Extremities/Musculoskeletal: LUE in sling, TTP along shoulder and upper arm. NVI distally. TTP of left upper leg and groin, pain with mvmt. No deformities noted. Extremities motor strength 5/5 Neurologic: PERRL, EOMI, no dysarthria, CN's II-XI intact bilaterally and moves all extremities Psychiatric: A+Ox3 Skin: no rashes, normal color, warm/dry Results & Data Results & Data ([facility]) Vital Signs (Past 12 Hours) Vital Signs Temp Pulse Resp BP Pulse Ox 12/26/19 07:13 36.8 C 82 14 175/67 H 92 12/25/19 22:58 37.0 C 89 14 167/71 H 92 12/25/19 21:10 174/85 H Laboratory Results 12/26/19 12/26/19 Range/Units 05:11 05:11 WBC 5.10 (4.8-10.8) K/uL RBC 3.29 L (4.2-5.4) M/uL Hgb 9.3 L (12.0-16.0) g/dL Hct 29.3 L (37-47) % MCV 89.1 (80-100) fL MCH 28.3 (25-34) pg MCHC 31.7 L (32-36) g/dL RDW Std Deviation 51.9 H (36.4-46.3) fL RDW Coeff of Darci 15.9 H (11.5-14.5) % Plt Count 91 L (130-400) K/uL MPV 10.2 (7.4-10.4) fL Platelet Estimate Decreased L (Normal) Sodium 137 (136-145) mmol/L Potassium 4.9 (3.5-5.1) mmol/L Chloride 105 (98-107) mmol/L Carbon Dioxide 27 (21-32) mmol/L Anion Gap 5.0 (3-11) BUN 32 H (7-18) mg/dl Creatinine 4.18 H D (0.6-1.2) mg/dl Est Cr Clr Drug Dosing 8.1 ml/min Est GFR ( Amer) 11.2 Est GFR (Non-Af Amer) 9.6 BUN/Creatinine Ratio 7.5 L (10-20) Glucose 89 (70-99) mg/dl Calcium 8.3 L (8.5-10.1) mg/dl Medications Administered Current Inpatient Medications Acetaminophen (Acetaminophen 500 Mg Tab) 500 mg PO Q6 [facility] Stop: 01/24/20 11:14 Last Admin: 12/26/19 05:14 Dose: Not Given Documented by: Everolimus (Everolimus 0.5 Mg Tablet) 2 ea PO BID DAGOBERTO Stop: 01/23/20 20:59 Last Admin: 12/25/19 20:21 Dose: 2 ea Documented by: Ferrous Sulfate (Ferrous Sulfate 325 Mg Tab) 325 mg PO HS [facility] Stop: 01/23/20 20:59 Last Admin: 12/25/19 20:22 Dose: 325 mg Documented by: Hydralazine HCl (Hydralazine 10 Mg Tab) 10 mg PO BID [facility] Stop: 01/23/20 13:59 Last Admin: 12/25/19 20:22 Dose: 10 mg Documented by: Hydralazine HCl (Hydralazine Hcl 20 Mg/Ml Vial) 5 mg IV Q6H PRN PRN Reason: SBP > 180 Stop: 01/23/20 16:38 Ceftriaxone Sodium 1,000 mg/ (Dextrose) 50 mls @ 100 mls/hr IV Q24H [facility]; Protocol Stop: 12/29/19 11:44 Last Infusion: 12/25/19 15:04 Dose: Infused Documented by: Lidocaine (Lidocaine 5% 1 Patch) 1 patch TD QAM [facility] Stop: 01/24/20 13:59 Last Admin: 12/25/19 14:19 Dose: 1 patch Documented by: Metoprolol Tartrate (Metoprolol Tartrate 25 Mg Tab) 50 mg PO BID [facility] Stop: 01/23/20 14:29 Last Admin: 12/25/19 20:21 Dose: 50 mg Documented by: Miscellaneous (Remove Lidoderm Patch) 1 ea N/A DAILY@2100 [facility] Stop: 01/24/20 13:59 Last Admin: 12/25/19 20:27 Dose: 1 ea Documented by: Morphine Sulfate (Morphine Sulfate 2 Mg/Ml Carp) 2 mg IV Q3H PRN PRN Reason: Pain Stop: 01/07/20 13:59 Last Admin: 12/25/19 21:08 Dose: 2 mg Documented by: Multivitamins/Minerals (Calcium 600mg + Vit D 400 Iu Tab) 1 tab PO BID DAGOBERTO Stop: 01/23/20 20:59 Last Admin: 12/25/19 20:21 Dose: 1 tab Documented by: Tramadol HCl (Tramadol Hcl 50 Mg Tablet) 50 mg PO Q8H PRN PRN Reason: Pain Stop: 01/24/20 10:35 Vitamin B Complex/Folic Acid (Nephrocaps) 1 cap PO BID DAGOBERTO Stop: 01/23/20 20:59 Last Admin: 12/25/19 20:22 Dose: 1 cap Documented by: Vitamin D (Cholecalciferol 1,000 Units 25 Mcg Tab) 2,000 units PO HS DAGOBERTO Stop: 01/23/20 20:59 Last Admin: 12/25/19 20:22 Dose: 2,000 units Documented by: Zolpidem Tartrate (Zolpidem Tartrate 5 Mg Tab) 5 mg PO HS PRN PRN Reason: sleep Stop: 01/23/20 13:40 Last Admin: 12/25/19 23:26 Dose: 5 mg Documented by: (1) HTN (hypertension) Hypertension type: essential hypertension Qualified Code(s): I10 - Essential (primary) hypertension
[2019-12-26] MEDS: METOPROLOL TARTRATE 25 MG TAB PO SCH ×2 (08:27→21:17)
[2019-12-26] MEDS: HydrALAZINE 10 MG TAB PO SCH ×2 (08:28→21:18)
[2019-12-26] MEDS: CALCIUM 600MG + VIT D 400 IU TAB PO SCH ×2 (08:28→21:18)
[2019-12-26] MEDS: LIDOCAINE 5% 1 PATCH TD SCH (08:46)
[2019-12-26] MEDS: NEPHROCAPS PO SCH ×2 (09:04→21:17)
[2019-12-26] MEDS: MoRPHine SULFATE 2 MG/ML CARP IV PRN ×3 (09:40→20:16)
--- NOTE | 2019-12-26 10:18 | Orthopedic Progress Note ---
Date of Service December 26, 2019 Assessment & Plan (1) Pelvic ring fracture: WBAT with 4 prong stabilization cane OOB from bed to chair and bathroom DVT prophy deferred to medical service due to rectal bleeding and anemia PT/OT eric Recommend SNF due to current issues and PMH Will continue to follow while inpatient. (2) Left humeral fracture: Nonweightbearing in Left UE with sling use when ambulatory Ice with EZ wrap Use care when moving arm to initiate dialysis treatment PO pain control per medicine service discretion. Follow-up [facility] 2 weeks with x-rays Admission and Anticipated Discharge Date Admission Date: December 24, 2019 Subjective This 79 F is seen again this AM for Left proximal humerus and pubic rami fractures. She state that she is in constant pain that is only slightly alleviated with the IV Morphine. She is not using her arm sling because she says it is uncomfortable. Patient states that she was able to sit on the edge of her bed yesterday with PT but was unable to bear weight due to pain. She denies CP, SOB, nausea, vomiting, fever, chills or lethargy. Review of Systems Review of Systems: All systems reviewed & are unremarkable except as noted in Subjective Physical Exam Physical Exam: Left shoulder: TTP over shoulder and proximal humerus near site of dialysis fistula. ROM at shoulder not tested due to fracture. Mild edema and ecchymosis. No erythema, warmth or open skin areas. Able to depict light sensation touch in upper arm. Mildly TTP over AC joint. Left wrist: TTP over distal radius and anatomic snuffbox but less sensitive than yesterday. ROM with flexion/extension and ulnar/radial deviation produces only minimal pain. No edema, erythema, ecchymosis, warmth or palpable bony deformity. Periph pulses 2+ Patient resistant to flex at elbow but is only comfortable with terminal extension. No TTP at elbow. Appropriate finger dexterity performing pincer grasp and actively flexing and extending at IP of thumb. NV intact in Left UE. Left hip: + log roll with referred to pain to anterior groin area. Able to perform SLRT with only mild pain in groin Quad strength 2-3/5. Knee flexion to 50 degrees causes no pain in hip. Mild TTP in groin. Also can actively dorsi/plantar flex foot. NV intact. Periph pulses 2+. Light active and passive internal and external hip rotation caused mild hip pain. Results & Data ([facility]) Vital Signs (Past 12 Hours) Vital Signs Temp Pulse Resp BP Pulse Ox 12/26/19 07:13 36.8 C 82 14 175/67 H 92 12/25/19 22:58 37.0 C 89 14 167/71 H 92
--- NOTE | 2019-12-26 10:18 | Nephrology Progress Note ---
Date of Service December 26, 2019 Assessment & Plan (1) ESRD (end stage renal disease) on dialysis: * Volume status and electrolyte balance are acceptable. No acute indication for HD today * Will schedule next HD for am. Will limit treatment time to 2 hrs due to discomfort. No heparin due to recent fractures. Discussed w/ patient. She is agreeable to HD in am. Orders have been entered into EMR and HD RN notified (2) HTN (hypertension): * Continue home BP regimen * Can provide additional doses of hydralazine IV PRN * HTN is likely being driven by pain. Expect BP to improve as pain is controlled (3) Anemia: * Hgb has dropped to 9.3. Will provide KALLIE w/ HD (4) Pelvic ring fracture: * Patient has proximal L humerus and pelvic ring fracture. Her L arm is in a sling and she is WBAT for pelvic ring fracture. * Will likely require SNF following hospitalization (5) Hx of liver transplant: Admission and Anticipated Discharge Date Admission Date: December 24, 2019 Subjective Ms. Li was seen & examined in her hospital room this morning. She c/o continued pain from her humeral and pelvic fractures. She is awaiting physical therapy later this morning. Review of Systems Constitutional: + weakness; no fever Eyes: no problem reported Ear, Nose, Mouth, Throat: no problem reported Respiratory: no dyspnea Cardiovascular: no chest pain Gastrointestinal: no abdominal pain and no diarrhea/loose stools Genitourinary: no dysuria and no hematuria Musculoskeletal: + back pain Integumentary: no rash Neurologic: + falls; no dizziness Physical Exam Constitutional: + frail appearing; not in distress Eyes: PERRL, conjunctivae normal, anicteric sclerae ENMT: external ear and nose normal, oropharynx normal Neck: trachea midline, no thyromegaly Respiratory: normal respiratory effort, lungs clear to auscultation Cardiovascular: RRR, no murmur, no edema Extremities: + AV fistula (+ bruit) Gastrointestinal (Abdomen): normal bowel sounds, soft, nontender, no hepatosplenomegaly Musculoskeletal: Extremities: no cyanosis Skin: no rashes, warm and dry Neurologic: awake; not confused Results & Data ([facility]) Vital Signs (Past 12 Hours) Vital Signs Temp Pulse Resp BP Pulse Ox 12/26/19 07:13 36.8 C 82 14 175/67 H 92 12/25/19 22:58 37.0 C 89 14 167/71 H 92 Laboratory Results Laboratory Tests 12/26/19 12/26/19 05:11 05:11 WBC 5.10 Hgb 9.3 L Hct 29.3 L Plt Count 91 L Sodium 137 Potassium 4.9 Chloride 105 Carbon Dioxide 27 BUN 32 H Creatinine 4.18 H D Glucose 89 Calcium 8.3 L PG Care Time/CCT Total # of Minutes Spent Total Time Spent with Patient: Total time spent is greater than 50% in coordination of care (as documented) at patient's floor/unit and/or counseling patient: Coding Level of Care Code 13148 Subseq Hosp Care Lvl 3 Diagnoses ESRD (end stage renal disease) on dialysis N18.6; Z99.2 HTN (hypertension) I10 Hypertension type: essential hypertension Anemia D64.9 Pelvic ring fracture S32.810A Hx of liver transplant Z94.4 (1) HTN (hypertension) Hypertension type: essential hypertension Qualified Code(s): I10 - Essential (primary) hypertension
[2019-12-26] MEDS: cefTRIAXone SODIUM 1,000 MG in DEXTROSE 5% 50 ML IV SCH (12:55)
[2019-12-26] MEDS ORDERED: MoRPHine SULFATE 2 MG/ML CARP IV PRN (15:02)
[2019-12-26] MEDS ORDERED: OXYCODONE HCL IR 5 MG TAB (IMMEDIATE RELEASE) PO PRN (15:48)
[2019-12-26] MEDS: POLYETHYLENE (MIRALAX) 17 GM PACK PO SCH (17:18)
[2019-12-26] MEDS: SENNA 8.6 MG TAB PO SCH (17:18)
[2019-12-26] MEDS: CHOLECALCIFEROL 1,000 UNITS 25 MCG TAB PO SCH (21:17)
[2019-12-26] MEDS: FERROUS SULFATE 325 MG TAB PO SCH (21:18)
[2019-12-26] MEDS ORDERED: MoRPHine SULFATE 2 MG/ML CARP IV STA (22:38)
[2019-12-26] MEDS: ZOLPIDEM TARTRATE 5 MG TAB PO PRN (23:13)
[2019-12-27] MEDS: ACETAMINOPHEN 500 MG TAB PO SCH ×5 (06:08→23:41)
[2019-12-27] MEDS ORDERED: SODIUM CHLORIDE 0.9% 1000ML 1,000 ML IV PRN (07:00)
[2019-12-27 07:15] LABS: Hematocrit (blood only) 30.4 % (37-47); Hemoglobin 9.6 g/dL (12.0-16.0)
[2019-12-27] MEDS: OXYCODONE HCL IR 5 MG TAB (IMMEDIATE RELEASE) PO PRN (07:29)
[2019-12-27 07:54] LABS: Calcium 8.4 mg/dl (8.5-10.1); Creatinine Clr Calc Pharmacy 6.4 ml/min; Est GFR (African American) 8.4; Est GFR (Non-African American) 7.3; Potassium 5.1 mmol/L (3.5-5.1)
--- NOTE | 2019-12-27 08:46 | Hospitalist Progress Note ---
Date of Service December 27, 2019 Assessment & Plan (1) Fall: (2) Pelvic ring fracture: (3) Left humeral fracture: This is a 79yo F with a PMH of autoimmune hepatitis, history of liver transplant in 2005 complicated by infection with repeat transplant 2006, CKD V on dialysis MWF, hemorrhoids and other medical problems listed below who presents with left shoulder and groin pain after a fall at home overnight and was found to have acute impacted left humeral neck fracture and acute left pubic ring fracture. -Fell after ambulating back to bed from bathroom while looking at phone. Denies head trauma or LOC -Left shoulder XR with impacted left humeral neck fracture that extends into the humeral head, likely acute -CT pelvis with acute left pubic ring fractures with mild surrounding hemorrhage and intramuscular hemorrhage is noted within the left obturator internus -Hemodynamically stable with hgb at baseline of 11 -Discussed with orthopedic service, who feel that both fracture are non- operative and they will evaluate during admission Pelvic fracture: WBAT with 4 prong stabilization cane OOB from bed to chair and bathroom DVT prophy deferred to medical service due to rectal bleeding and anemia, SCDs PT/OT eval Left humerus fx: Nonweightbearing in Left UE with sling use when ambulatory Ice with EZ wrap Use care when moving arm to initiate dialysis treatment PO pain control per medicine service discretion. (Patient declining Tylenol, and tramadol, as she states it does not work for her. Discussed that morphine is not very safe medication for kidney patient. Agrees to try lidocaine patch on her left shoulder) Follow-up [facility] 2 weeks with x-rays -LLE weightbearing as tolerated, LUE nonweightbearing -PT/OT evaluation. discharge planning for likely Rehab or SNF placement (currently lives with family) -Patient however has difficulty working with PT due to pain. She declines Tylenol due to history of liver transplant, even lower doses of Tylenol. She refuses tramadol as well as she says it does not work. Has tramadol at home for back pain and it does not work for her. Lidocaine patch on her shoulder seems to be helping. She only took oxycodone this morning and used IV morphine for dialysis pain. (4) UTI (urinary tract infection): Abnormal UA. Will treat empirically with Rocephin while urine culture results. Wong in place -Urine culture positive for Klebsiella pneumonia, continue Rocephin (5) ESRD (end stage renal disease) on dialysis: ESRD (end stage renal disease) on MWF dialysis -plan for 2-hour dialysis today December 26 -Routine nephrology consult for HD (6) Autoimmune hepatitis: Hx of liver transplant x 2 for AIH, second transplant done for infection -Continue Everolimus (7) HTN (hypertension): Continue hydralazine, nebivolol (8) Anemia: Hgb ~ 11 on admission. Now down to 9.3, received Epo by nephrology -continue to monitor in setting of pelvic fracture, ongoing bleeding hemorrhoids (9) Insomnia: Ambien HS as needed but caution while patient also receiving narcotics DVT Ppx: SCDs Code status: FULL PCP: Leena Dispo: Admit to med surg. Discharge planning ordered Admission and Anticipated Discharge Date Admission Date: December 24, 2019 Subjective Patient is lying in bed, currently in no acute distress. However she complains she has pain especially when working with PT. She only took however medication this morning and prior to her dialysis this AM. She did not have a bowel movement yet, currently she is sipping on MiraLAX. She had to be reminded to take stool softener. She was also encouraged to use incentive spirometer. Denies any fevers, chills, chest pain, shortness of breath, abdominal pain, nausea or vomiting. Review of Systems Review of Systems: All systems reviewed & are unremarkable except as noted in HPI & below Constitutional: no fever and no chills Respiratory: no cough and no dyspnea Cardiovascular: no chest pain and no palpitations Gastrointestinal: + constipation; no abdominal pain and no vomiting Physical Exam Physical Exam: General Appearance: Elderly female, sitting up in bed, WD/WN, vitals as above, conversing easily Head: normocephalic, atraumatic Eyes: normal inspection, PERRL, conjunctivae normal, anicteric sclerae ENT: external ear and nose normal, oropharynx normal Neck: normal visual inspection, trachea midline, no thyromegaly Respiratory: normal respiratory effort, lungs clear to auscultation, no wheeze, rales, rhonchi. No accessory muscle use Cardiovascular: regular rate, rhythm, + soft systolic murmur, normal peripheral pulses, no BLE edema Abdomen/GI: normal bowel sounds, soft, nontender to palpation Extremities/Musculoskeletal: LUE in sling, TTP along shoulder and upper arm. NVI distally. TTP of left upper leg and groin, pain with mvmt. No deformities noted. Extremities motor strength 5/5 Neurologic: PERRL, EOMI, no dysarthria, CN's II-XI intact bilaterally and moves all extremities Psychiatric: A+Ox3 Skin: no rashes, normal color, warm/dry Results & Data Results & Data ([facility]) Vital Signs (Past 12 Hours) Vital Signs Temp Pulse Pulse Resp BP Pulse Ox 12/27/19 07:24 37.0 C 86 16 184/66 H 92 12/26/19 23:29 37.0 C 86 16 165/70 H 94 12/26/19 23:06 36.8 C 86 18 185/78 H 94 12/26/19 22:25 187/88 H 12/26/19 21:16 91 H 189/76 H Laboratory Results 12/27/19 12/27/19 Range/Units 06:24 06:24 Hgb 9.6 L (12.0-16.0) g/dL Hct 30.4 L (37-47) % Sodium 136 (136-145) mmol/L Potassium 5.1 (3.5-5.1) mmol/L Chloride 104 (98-107) mmol/L Carbon Dioxide 25 (21-32) mmol/L Anion Gap 6.0 (3-11) BUN 43 H (7-18) mg/dl Creatinine 5.27 H* D (0.6-1.2) mg/dl Est Cr Clr Drug Dosing 6.4 ml/min Est GFR ( Amer) 8.4 Est GFR (Non-Af Amer) 7.3 BUN/Creatinine Ratio 8.0 L (10-20) Glucose 87 (70-99) mg/dl Calcium 8.4 L (8.5-10.1) mg/dl Medications Administered Current Inpatient Medications Acetaminophen (Acetaminophen 500 Mg Tab) 500 mg PO Q6 DAGOB[facility]O Stop: 01/24/20 11:14 Last Admin: 12/27/19 06:08 Dose: Not Given Documented by: Epoetin Wale (Epoetin Wale 10,000 Units/Ml Vial) 10,000 units IV TODAY@0900 DAGOBERTO Stop: 12/27/19 18:00 Everolimus (Everolimus 0.5 Mg Tablet) 2 ea PO BID DAGOBERTO Stop: 01/23/20 20:59 Last Admin: 12/26/19 21:17 Dose: 2 ea Documented by: Ferrous Sulfate (Ferrous Sulfate 325 Mg Tab) 325 mg PO HS [facility] Stop: 01/23/20 20:59 Last Admin: 12/26/19 21:18 Dose: 325 mg Documented by: Hydralazine HCl (Hydralazine Hcl 20 Mg/Ml Vial) 5 mg IV Q6H PRN PRN Reason: SBP > 180 Stop: 01/23/20 16:38 Last Admin: 12/26/19 23:13 Dose: 5 mg Documented by: Hydralazine HCl (Hydralazine 10 Mg Tab) 10 mg PO TID [facility] Stop: 01/26/20 08:59 Ceftriaxone Sodium 1,000 mg/ (Dextrose) 50 mls @ 100 mls/hr IV Q24H [facility]; Protocol Stop: 12/29/19 11:44 Last Infusion: 12/26/19 13:22 Dose: Infused Documented by: Sodium Chloride (Nss 1000ml) 1,000 mls @ 0 mls/hr IV .Q0M PRN PRN Reason: For Hemodialysis Use ONLY Stop: 12/27/19 12:59 Lidocaine (Lidocaine 5% 1 Patch) 1 patch TD QAM [facility] Stop: 01/24/20 13:59 Last Admin: 12/26/19 08:46 Dose: 1 patch Documented by: Metoprolol Tartrate (Metoprolol Tartrate 25 Mg Tab) 50 mg PO BID [facility] Stop: 01/23/20 14:29 Last Admin: 12/26/19 21:17 Dose: 50 mg Documented by: Miscellaneous (Remove Lidoderm Patch) 1 ea N/A DAILY@2100 [facility] Stop: 01/24/20 13:59 Last Admin: 12/26/19 21:26 Dose: 1 ea Documented by: Morphine Sulfate (Morphine Sulfate 2 Mg/Ml Carp) 2 mg IV Q3H PRN PRN Reason: Pain Stop: 01/07/20 13:59 Last Admin: 12/26/19 20:16 Dose: 2 mg Documented by: Morphine Sulfate (Morphine Sulfate 2 Mg/Ml Carp) 2 mg IV UD PRN PRN Reason: Pls give prior to PT for pain Stop: 01/09/20 15:01 Multivitamins/Minerals (Calcium 600mg + Vit D 400 Iu Tab) 1 tab PO BID [facility] Stop: 01/23/20 20:59 Last Admin: 12/26/19 21:18 Dose: 1 tab Documented by: Oxycodone HCl (Oxycodone Hcl Ir 5 Mg Tab (Immediate Release)) 5 - 10 mg PO Q6H PRN PRN Reason: Pain Stop: 01/09/20 15:47 Last Admin: 12/27/19 07:29 Dose: 10 mg Documented by: Polyethylene Glycol (Polyethylene (Miralax) 17 Gm Pack) 17 gm PO DAILY [facility] Stop: 01/25/20 16:14 Last Admin: 12/26/19 17:18 Dose: 17 gm Documented by: Sennosides (Senna 8.6 Mg Tab) 8.6 mg PO QAM [facility] Stop: 01/25/20 15:59 Last Admin: 12/26/19 17:18 Dose: 8.6 mg Documented by: Tramadol HCl (Tramadol Hcl 50 Mg Tablet) 50 mg PO Q6H PRN PRN Reason: Pain Stop: 01/24/20 10:35 Vitamin B Complex/Folic Acid (Nephrocaps) 1 cap PO BID [facility] Stop: 01/23/20 20:59 Last Admin: 12/26/19 21:17 Dose: 1 cap Documented by: Vitamin D (Cholecalciferol 1,000 Units 25 Mcg Tab) 2,000 units PO HS [facility] Stop: 01/23/20 20:59 Last Admin: 12/26/19 21:17 Dose: 2,000 units Documented by: Zolpidem Tartrate (Zolpidem Tartrate 5 Mg Tab) 5 mg PO HS PRN PRN Reason: sleep Stop: 01/23/20 13:40 Last Admin: 12/26/19 23:13 Dose: 5 mg Documented by: (1) HTN (hypertension) Hypertension type: essential hypertension Qualified Code(s): I10 - Essential (primary) hypertension
[2019-12-27] MEDS ORDERED: EPOETIN ALFA 10,000 UNITS/ML VIAL IV SCH (09:00)
[2019-12-27] MEDS: LIDOCAINE 5% 1 PATCH TD SCH (09:11)
[2019-12-27] MEDS: MoRPHine SULFATE 2 MG/ML CARP IV PRN ×2 (09:11→16:38)
[2019-12-27] MEDS: CALCIUM 600MG + VIT D 400 IU TAB PO SCH ×2 (09:33→21:07)
[2019-12-27] MEDS: HydrALAZINE 10 MG TAB PO SCH ×3 (09:33→21:07)
[2019-12-27] MEDS: SENNA 8.6 MG TAB PO SCH ×2 (09:34→12:11)
[2019-12-27] MEDS: NEPHROCAPS PO SCH ×2 (09:34→22:11)
[2019-12-27] MEDS: POLYETHYLENE (MIRALAX) 17 GM PACK PO SCH ×2 (09:34→12:11)
[2019-12-27] MEDS: METOPROLOL TARTRATE 25 MG TAB PO SCH ×2 (09:34→21:07)
--- NOTE | 2019-12-27 12:24 | Nephrology Progress Note ---
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 Has been dialysis Sunday, Sunday at [facility] per dialysis unit. She was admitted on 12/24/2019 after she had a fall at and found to have pelvic rim fracture. Was evaluated by Orthopedics and recommended immobilization and rehab. -- currently getting dialysis for 2 hours as she refused to have longer than. Next dialysis will be Sunday as her regular schedule. -- continue renal dose medications for GFR less. left arm nephrology precaution. Will follow (2) HTN (hypertension): (3) Anemia: (4) Pelvic ring fracture: Admission and Anticipated Discharge Date Admission Date: December 24, 2019 Subjective Diane was seen and examined during dialysis treatment this. She has been tolerating dialysis well, vital signs stable. Denies any symptom except left hip pain. Review of Systems Review of Systems: All systems reviewed & are unremarkable except as noted in HPI & below Physical Exam Constitutional: well developed and well nourished; no acute distress Respiratory: normal respiratory effort, lungs clear to auscultation Cardiovascular: RRR, no murmur, no edema Neurologic: moves all extremities and awake; not confused Psychiatric: A+Ox3, euthymic affect Results & Data ([facility]) Vital Signs (Past 12 Hours) Vital Signs Temp Pulse Pulse Pulse Resp BP BP 12/27/19 12:10 36.8 C 80 18 153/74 H 12/27/19 11:40 36.8 C 80 158/64 H 12/27/19 11:20 85 121/55 L 12/27/19 11:00 82 136/52 L 12/27/19 10:40 82 128/57 L 12/27/19 10:20 82 113/53 L 12/27/19 10:00 78 133/58 L 12/27/19 09:40 67 165/77 H 12/27/19 09:30 36.9 C 77 12/27/19 07:24 37.0 C 86 16 184/66 H Pulse Ox 12/27/19 12:10 94 12/27/19 11:40 12/27/19 11:20 12/27/19 11:00 12/27/19 10:40 12/27/19 10:20 12/27/19 10:00 12/27/19 09:40 12/27/19 09:30 12/27/19 07:24 92 PG Care Time/CCT Total # of Minutes Spent Total Time Spent with Patient: Total time spent is greater than 50% in coordination of care (as documented) at patient's floor/unit and/or counseling patient: Coding Level of Care Code 79392 Subseq Hosp Care Lvl 2 Diagnoses ESRD (end stage renal disease) on dialysis N18.6; Z99.2 HTN (hypertension) I10 Hypertension type: essential hypertension Anemia D64.9 Pelvic ring fracture S32.810A (1) HTN (hypertension) Hypertension type: essential hypertension Qualified Code(s): I10 - Essential (primary) hypertension
[2019-12-27] MEDS: cefTRIAXone SODIUM 1,000 MG in DEXTROSE 5% 50 ML IV SCH (13:09)
[2019-12-27] MEDS: CHOLECALCIFEROL 1,000 UNITS 25 MCG TAB PO SCH (21:07)
[2019-12-27] MEDS: FERROUS SULFATE 325 MG TAB PO SCH (21:07)
[2019-12-27] MEDS: ZOLPIDEM TARTRATE 5 MG TAB PO PRN (23:39)
[2019-12-28] MEDS: TRAMADOL HCL 50 MG TABLET PO PRN ×2 (01:32→23:34)
[2019-12-28] MEDS: MoRPHine SULFATE 2 MG/ML CARP IV PRN (08:09)
[2019-12-28] MEDS: METOPROLOL TARTRATE 25 MG TAB PO SCH ×2 (08:12→20:44)
[2019-12-28] MEDS: NEPHROCAPS PO SCH ×2 (08:12→21:49)
[2019-12-28] MEDS: SENNA 8.6 MG TAB PO SCH ×2 (08:12→20:45)
[2019-12-28] MEDS: LIDOCAINE 5% 1 PATCH TD SCH (08:13)
[2019-12-28] MEDS: CALCIUM 600MG + VIT D 400 IU TAB PO SCH ×2 (08:13→20:44)
[2019-12-28] MEDS: HydrALAZINE 10 MG TAB PO SCH ×3 (08:13→20:44)
[2019-12-28] MEDS: POLYETHYLENE (MIRALAX) 17 GM PACK PO SCH ×2 (08:13→20:46)
--- NOTE | 2019-12-28 09:28 | XRay Report ---
XR chest 1V portable CLINICAL HISTORY: rib pain after manipulation COMPARISON STUDY: Chest CT August 06, 2018. Chest radiograph December 24, 2019. FINDINGS: There may be a trace right pleural effusion. There is no pneumothorax. Cardiomegaly is unch anged. There is no evidence for pulmonary edema. No airspace opacities are noted. No acute rib fractu res are identified although sensitivity is diminished utilizing this technique. Left upper extremity surgical clips are noted. Deformity of the left humeral head and neck is again noted. IMPRESSION: 1. No change in appearance of the chest. 2. Trace right pleural effusion. No pneumothorax. ACT 112: Negative or not required by law. Electronically signed by: Milton Calloway M.D. 12/28/2019 9:27 AM
[2019-12-28] MEDS: ACETAMINOPHEN 500 MG TAB PO SCH ×3 (10:51→23:29)
--- NOTE | 2019-12-28 12:19 | Nephrology Progress Note ---
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 Has been dialysis Sunday, Sunday at [facility] per dialysis unit. She was admitted on 12/24/2019 after she had a fall at and found to have pelvic rim fracture. Was evaluated by Orthopedics and recommended immobilization and rehab. -- She is schedule for dialysis tomorrow minimum should be at least 3 hours however she has been requesting for just 2 hours as she has been uncomfortable with her pelvic pain -- continue renal dose medications for GFR less. left arm nephrology precaution. Will follow Admission and Anticipated Discharge Date Admission Date: December 24, 2019 Subjective Diane was seen and examined in her room this morning. blood pressure, electrolyte volume status acceptable. Denies any symptom except left hip pain with movement. Review of Systems Review of Systems: All systems reviewed & are unremarkable except as noted in HPI & below Physical Exam Constitutional: well developed and well nourished; no acute distress Respiratory: normal respiratory effort, lungs clear to auscultation Cardiovascular: RRR, no murmur, no edema Neurologic: moves all extremities and awake; not confused Psychiatric: A+Ox3, euthymic affect Results & Data ([facility]) Vital Signs (Past 12 Hours) Vital Signs Temp Pulse Resp BP Pulse Ox 12/28/19 07:01 37.2 C 87 16 149/67 H 90 PG Care Time/CCT Total # of Minutes Spent Total Time Spent with Patient: Total time spent is greater than 50% in coordination of care (as documented) at patient's floor/unit and/or counseling patient: Coding Level of Care Code 68105 Subseq Hosp Care Lvl 2 Diagnoses ESRD (end stage renal disease) on dialysis N18.6; Z99.2
[2019-12-28] MEDS: cefTRIAXone SODIUM 1,000 MG in DEXTROSE 5% 50 ML IV SCH (12:42)
[2019-12-28] MEDS: OXYCODONE HCL IR 5 MG TAB (IMMEDIATE RELEASE) PO PRN (13:59)
--- NOTE | 2019-12-28 16:19 | Hospitalist Progress Note ---
Date of Service December 28, 2019 Assessment & Plan (1) Fall: (2) Pelvic ring fracture: (3) Left humeral fracture: This is a 79yo F with a PMH of autoimmune hepatitis, history of liver transplant in 2005 complicated by infection with repeat transplant 2006, CKD V on dialysis MWF, hemorrhoids and other medical problems listed below who presents with left shoulder and groin pain after a fall at home overnight and was found to have acute impacted left humeral neck fracture and acute left pubic ring fracture. -Fell after ambulating back to bed from bathroom while looking at phone. Denies head trauma or LOC -Left shoulder XR with impacted left humeral neck fracture that extends into the humeral head, likely acute -CT pelvis with acute left pubic ring fractures with mild surrounding hemorrhage and intramuscular hemorrhage is noted within the left obturator internus -Hemodynamically stable with hgb at baseline of 11 -Discussed with orthopedic service, who feel that both fracture are non- operative and they will evaluate during admission Pelvic fracture: WBAT with 4 prong stabilization cane OOB from bed to chair and bathroom DVT prophy deferred to medical service due to rectal bleeding and anemia, SCDs PT/OT eval Left humerus fx: Nonweightbearing in Left UE with sling use when ambulatory Ice with EZ wrap Use care when moving arm to initiate dialysis treatment PO pain control per medicine service discretion. (Patient declining Tylenol, and tramadol, as she states it does not work for her. Discussed that morphine is not very safe medication for kidney patient. Agrees to try lidocaine patch on her left shoulder) Follow-up [facility] 2 weeks with x-rays -LLE weightbearing as tolerated, LUE nonweightbearing -PT/OT evaluation. discharge planning for likely Rehab or SNF placement (currently lives with family) -This morning 12/27, patient more in pain in her chest area after movement by aids. Says that when she first woke up she felt actually quite well. Chest x- ray obtained to evaluate for possible rib fractures or any complications, unremarkable. States she feels better. Continue pain management. (4) UTI (urinary tract infection): Abnormal UA. Will treat empirically with Rocephin while urine culture results. Wong in place -Urine culture positive for Klebsiella pneumonia, continue Rocephin (5) ESRD (end stage renal disease) on dialysis: ESRD (end stage renal disease) on MWF dialysis -plan for 2-hour dialysis today December 26 -Routine nephrology consult for HD (6) Autoimmune hepatitis: Hx of liver transplant x 2 for AIH, second transplant done for infection -Continue Everolimus (7) HTN (hypertension): Continue hydralazine, nebivolol (8) Anemia: Hgb ~ 11 on admission. Now down to 9.3, received Epo by nephrology -continue to monitor in setting of pelvic fracture, ongoing bleeding hemorrhoids (9) Insomnia: Ambien HS as needed but caution while patient also receiving narcotics DVT Ppx: SCDs Code status: FULL PCP: Leena Dispo: Admit to med surg. Discharge planning ordered Admission and Anticipated Discharge Date Admission Date: December 24, 2019 Subjective This morning patient says that she felt well initially however she was then moved by aides and was then feeling in pain in her left rib cage area. She otherwise denies any fevers, chills, chest pain, shortness of breath, abdominal pain. I will notified about left rib cage area pain and chest x-ray was obtained. Patient son at the bedside updated. Patient did not have a bowel movement yet, needs to upgrade her bowel regimen. Review of Systems Review of Systems: All systems reviewed & are unremarkable except as noted in HPI & below Constitutional: no fever and no chills Respiratory: no cough and no dyspnea Cardiovascular: + chest pain (after movement); no palpitations Gastrointestinal: + constipation; no abdominal pain and no vomiting Physical Exam Physical Exam: General Appearance: Elderly female, sitting up in bed, WD/WN, vitals as above, conversing easily Head: normocephalic, atraumatic Eyes: normal inspection, PERRL, conjunctivae normal, anicteric sclerae ENT: external ear and nose normal, oropharynx normal Neck: normal visual inspection, trachea midline, no thyromegaly Respiratory: normal respiratory effort, lungs clear to auscultation, no wheeze, rales, rhonchi. No accessory muscle use Cardiovascular: regular rate, rhythm, + soft systolic murmur, normal peripheral pulses, no BLE edema Abdomen/GI: normal bowel sounds, soft, nontender to palpation Extremities/Musculoskeletal: LUE in sling, TTP along shoulder and upper arm. NVI distally. TTP of left upper leg and groin, pain with mvmt. No deformities noted. Extremities motor strength 5/5 Neurologic: PERRL, EOMI, no dysarthria, CN's II-XI intact bilaterally and moves all extremities Psychiatric: A+Ox3 Skin: no rashes, normal color, warm/dry Results & Data Results & Data ([facility]) Vital Signs (Past 12 Hours) Vital Signs Temp Pulse Resp BP Pulse Ox 12/28/19 15:06 36.9 C 85 18 180/74 H 95 12/28/19 07:01 37.2 C 87 16 149/67 H 90 Medications Administered Current Inpatient Medications Acetaminophen (Acetaminophen 500 Mg Tab) 500 mg PO Q6 DAGOBERTO Stop: 01/24/20 11:14 Last Admin: 12/28/19 10:51 Dose: Not Given Documented by: Bisacodyl (Bisacodyl 10 Mg Supp) 10 mg [place] BID PRN PRN Reason: Constipation Stop: 01/27/20 16:23 Everolimus (Everolimus 0.5 Mg Tablet) 2 ea PO BID DAGOBERTO Stop: 01/23/20 20:59 Last Admin: 12/28/19 08:12 Dose: 2 ea Documented by: Ferrous Sulfate (Ferrous Sulfate 325 Mg Tab) 325 mg PO HS DAGOBERTO Stop: 01/23/20 20:59 Last Admin: 12/27/19 21:07 Dose: 325 mg Documented by: Hydralazine HCl (Hydralazine Hcl 20 Mg/Ml Vial) 5 mg IV Q6H PRN PRN Reason: SBP > 180 Stop: 01/23/20 16:38 Last Admin: 12/26/19 23:13 Dose: 5 mg Documented by: Hydralazine HCl (Hydralazine 10 Mg Tab) 10 mg PO TID DAGOBERTO Stop: 01/26/20 08:59 Last Admin: 12/28/19 12:42 Dose: 10 mg Documented by: Lidocaine (Lidocaine 5% 1 Patch) 1 patch TD QAM DAGOBERTO Stop: 01/24/20 13:59 Last Admin: 12/28/19 08:13 Dose: 1 patch Documented by: Magnesium Hydroxide (Magnesium Hydroxide Susp 30 Ml Udc) 30 ml PO Q6H PRN PRN Reason: Constipation Stop: 01/27/20 16:23 Metoprolol Tartrate (Metoprolol Tartrate 25 Mg Tab) 50 mg PO BID DAGOBERTO Stop: 01/23/20 14:29 Last Admin: 12/28/19 08:12 Dose: 50 mg Documented by: Miscellaneous (Remove Lidoderm Patch) 1 ea N/A DAILY@2100 DAGOBERTO Stop: 01/24/20 13:59 Last Admin: 12/27/19 22:11 Dose: 1 ea Documented by: Morphine Sulfate (Morphine Sulfate 2 Mg/Ml Carp) 2 mg IV Q3H PRN PRN Reason: Pain Stop: 01/07/20 13:59 Last Admin: 12/28/19 08:09 Dose: 2 mg Documented by: Morphine Sulfate (Morphine Sulfate 2 Mg/Ml Carp) 2 mg IV UD PRN PRN Reason: Pls give prior to PT for pain Stop: 01/09/20 15:01 Multivitamins/Minerals (Calcium 600mg + Vit D 400 Iu Tab) 1 tab PO BID DAGOBERTO Stop: 01/23/20 20:59 Last Admin: 12/28/19 08:13 Dose: 1 tab Documented by: Oxycodone HCl (Oxycodone Hcl Ir 5 Mg Tab (Immediate Release)) 5 - 10 mg PO Q6H PRN PRN Reason: Pain Stop: 01/09/20 15:47 Last Admin: 12/28/19 13:59 Dose: 10 mg Documented by: Polyethylene Glycol (Polyethylene (Miralax) 17 Gm Pack) 17 gm PO BID DAGOBERTO Stop: 01/27/20 20:59 Sennosides (Senna 8.6 Mg Tab) 8.6 mg PO BID DAGOBERTO Stop: 01/27/20 20:59 Tramadol HCl (Tramadol Hcl 50 Mg Tablet) 50 mg PO Q6H PRN PRN Reason: Pain Stop: 01/24/20 10:35 Last Admin: 12/28/19 01:32 Dose: 50 mg Documented by: Vitamin B Complex/Folic Acid (Nephrocaps) 1 cap PO BID DAGOBERTO Stop: 01/23/20 20:59 Last Admin: 12/28/19 08:12 Dose: 1 cap Documented by: Vitamin D (Cholecalciferol 1,000 Units 25 Mcg Tab) 2,000 units PO HS DAGOBERTO Stop: 01/23/20 20:59 Last Admin: 12/27/19 21:07 Dose: 2,000 units Documented by: Zolpidem Tartrate (Zolpidem Tartrate 5 Mg Tab) 5 mg PO HS PRN PRN Reason: sleep Stop: 01/23/20 13:40 Last Admin: 12/27/19 23:39 Dose: 5 mg Documented by: (1) HTN (hypertension) Hypertension type: essential hypertension Qualified Code(s): I10 - Essential (primary) hypertension
[2019-12-28] MEDS ORDERED: MAGNESIUM HYDROXIDE SUSP 30 ML UDC PO PRN (16:24)
[2019-12-28] MEDS ORDERED: bisacodyL 10 MG SUPP PR PRN (16:24)
[2019-12-28] MEDS: FERROUS SULFATE 325 MG TAB PO SCH (20:44)
[2019-12-28] MEDS: CHOLECALCIFEROL 1,000 UNITS 25 MCG TAB PO SCH (20:45)
[2019-12-28] MEDS: ZOLPIDEM TARTRATE 5 MG TAB PO PRN (21:49)
[2019-12-29] MEDS: ACETAMINOPHEN 500 MG TAB PO SCH ×4 (05:19→23:09)
[2019-12-29] MEDS: SENNA 8.6 MG TAB PO SCH ×2 (08:33→20:19)
[2019-12-29] MEDS: LIDOCAINE 5% 1 PATCH TD SCH (08:33)
[2019-12-29] MEDS: POLYETHYLENE (MIRALAX) 17 GM PACK PO SCH ×2 (08:33→20:15)
[2019-12-29] MEDS: OXYCODONE HCL IR 5 MG TAB (IMMEDIATE RELEASE) PO PRN (08:34)
[2019-12-29] MEDS: HydrALAZINE 10 MG TAB PO SCH ×3 (08:35→20:17)
[2019-12-29] MEDS: METOPROLOL TARTRATE 25 MG TAB PO SCH ×2 (08:35→20:16)
[2019-12-29] MEDS: CALCIUM 600MG + VIT D 400 IU TAB PO SCH ×2 (08:35→20:17)
[2019-12-29] MEDS: NEPHROCAPS PO SCH ×2 (08:35→20:35)
--- NOTE | 2019-12-29 08:45 | Hospitalist Progress Note ---
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 -Fell after ambulating back to bed from bathroom while looking at phone. Denies head trauma or LOC -Left shoulder XR with impacted left humeral neck fracture that extends into the humeral head, likely acute -CT pelvis with acute left pubic ring fractures with mild surrounding hemorrhage and intramuscular hemorrhage is noted within the left obturator internus -Hemodynamically stable with hgb at baseline of 11 -Discussed with orthopedic service, who feel that both fracture are non- operative and they will evaluate during admission Pelvic fracture: WBAT with 4 prong stabilization cane OOB from bed to chair and bathroom DVT prophy deferred to medical service due to rectal bleeding and anemia, SCDs PT/OT eval Left humerus fx: Nonweightbearing in Left UE with sling use when ambulatory Ice with EZ wrap Use care when moving arm to initiate dialysis treatment PO pain control per medicine service discretion. (Patient declining Tylenol, and tramadol, as she states it does not work for her. Discussed that morphine is not very safe medication for kidney patient. Agrees to try lidocaine patch on her left shoulder, this she reported helps) Follow-up [facility] 2 weeks with x-rays -LLE weightbearing as tolerated, LUE nonweightbearing -PT/OT evaluation. discharge planning for likely Rehab or SNF placement (currently lives with family) -12/27, patient more in pain in her chest area after movement by aids. Says that when she first woke up she felt actually quite well. Chest x-ray obtained to evaluate for possible rib fractures or any complications, unremarkable. States she feels better. Continue pain management. -12/28 patient had a bowel movement today and feels much better (4) UTI (urinary tract infection): Abnormal UA. Will treat empirically with Rocephin while urine culture results. Wong in place -Urine culture positive for Klebsiella pneumonia, continued Rocephin, Abx treatment finished (5) ESRD (end stage renal disease) on dialysis: ESRD (end stage renal disease) on MWF dialysis -Routine nephrology consult for HD (6) Autoimmune hepatitis: Hx of liver transplant x 2 for AIH, second transplant done for infection -Continue Everolimus (7) HTN (hypertension): Continue hydralazine, nebivolol (8) Anemia: Hgb ~ 11 on admission. Now down to ~ 9, received Epo by nephrology -continue to monitor in setting of pelvic fracture, ongoing bleeding hemorrhoids (9) Insomnia: Ambien HS as needed but caution while patient also receiving narcotics DVT Ppx: SCDs Code status: FULL PCP: Leena Dispo: Admit to med surg. Discharge planning ordered Admission and Anticipated Discharge Date Admission Date: December 24, 2019 Subjective Patient is lying in bed, in no acute distress. She feels better because she just had a bowel movement. She also underwent dialysis today. No fevers, chills, chest pain, shortness of breath, abdominal pain, nausea or vomiting. Review of Systems Review of Systems: All systems reviewed & are unremarkable except as noted in HPI & below Constitutional: no fever and no chills Respiratory: no cough and no dyspnea Cardiovascular: no chest pain and no palpitations Gastrointestinal: no abdominal pain, no nausea, no vomiting and no constipation Physical Exam Physical Exam: General Appearance: Elderly female, sitting up in bed, WD/WN, vitals as above, conversing easily Head: normocephalic, atraumatic Eyes: normal inspection, PERRL, conjunctivae normal, anicteric sclerae ENT: external ear and nose normal, oropharynx normal Neck: normal visual inspection, trachea midline, no thyromegaly Respiratory: normal respiratory effort, lungs clear to auscultation, no wheeze, rales, rhonchi. No accessory muscle use Cardiovascular: regular rate, rhythm, + soft systolic murmur, normal peripheral pulses, no BLE edema Abdomen/GI: normal bowel sounds, soft, nontender to palpation Extremities/Musculoskeletal: LUE in sling, TTP along shoulder and upper arm. NVI distally. TTP of left upper leg and groin, pain with mvmt. No deformities noted. Moves extremities spontaneously, pain with movement. Neurologic: PERRL, EOMI, no facial asymmetry, no dysarthria, moves all extremities Psychiatric: A+Ox3 Skin: no rashes, normal color, warm/dry Results & Data Results & Data ([facility]) Vital Signs (Past 12 Hours) Vital Signs Temp Pulse Pulse Resp BP Pulse Ox 12/29/19 07:13 36.9 C 84 16 152/84 H 92 12/28/19 23:38 36.7 C 90 18 162/53 H 92 Laboratory Results 12/29/19 12/29/19 Range/Units 08:51 08:51 Hgb 8.9 L (12.0-16.0) g/dL Hct 27.9 L (37-47) % Sodium 134 L (136-145) mmol/L Potassium 4.9 (3.5-5.1) mmol/L Chloride 101 (98-107) mmol/L Carbon Dioxide 26 (21-32) mmol/L Anion Gap 7.0 (3-11) BUN 42 H (7-18) mg/dl Creatinine 5.34 H* (0.6-1.2) mg/dl Est Cr Clr Drug Dosing 6.3 ml/min Est GFR ( Amer) 8.3 Est GFR (Non-Af Amer) 7.2 BUN/Creatinine Ratio 7.9 L (10-20) Glucose 95 (70-99) mg/dl Calcium 8.7 (8.5-10.1) mg/dl (1) HTN (hypertension) Hypertension type: essential hypertension Qualified Code(s): I10 - Essential (primary) hypertension
[2019-12-29 09:05] LABS: Hematocrit (blood only) 27.9 % (37-47); Hemoglobin 8.9 g/dL (12.0-16.0)
[2019-12-29 09:44] LABS: BUN Creatinine Ratio 7.9 (10-20); Calcium 8.7 mg/dl (8.5-10.1); Creatinine Clr Calc Pharmacy 6.3 ml/min; Est GFR (African American) 8.3; Est GFR (Non-African American) 7.2; Potassium 4.9 mmol/L (3.5-5.1)
--- NOTE | 2019-12-29 10:18 | Dialysis Progress Note ---
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 Has been dialysis Sunday, Sunday at [facility] per dialysis unit. She was admitted on 12/24/2019 after she had a fall at and found to have pelvic rim fracture. Was evaluated by Orthopedics and recommended immobilization and rehab. -- Currently getting dialysis as her regular schedule and for just 2 hours as she has been uncomfortable with her pelvic pain and refusing more than 2 hours -- continue renal diet, dose medications for GFR less. left arm nephrology precaution. Will follow Admission and Anticipated Discharge Date Admission Date: December 24, 2019 Subjective Diane was seen and examined during dialysis this morning. She has been tolerating dialysis well, AV fistula has been functioning well. She continues to have significant pain in her pelvis with any kind of movement. Overall feeling poorly and refusing to have more than 2 hours dialysis. Review of Systems Review of Systems: All systems reviewed & are unremarkable except as noted in HPI & below Physical Exam Constitutional: WD/WN, vitals as above + ill appearing; no acute distress Respiratory: normal respiratory effort, lungs clear to auscultation Cardiovascular: RRR, no murmur, no edema Neurologic: moves all extremities and awake; not confused Psychiatric: A+Ox3, euthymic affect Results & Data ([facility]) Vital Signs (Past 12 Hours) Vital Signs Temp Pulse Pulse Pulse Resp BP BP 12/29/19 10:00 87 121/68 12/29/19 09:40 83 146/71 H 12/29/19 09:30 81 178/77 H 12/29/19 09:20 36.9 C 86 12/29/19 07:13 36.9 C 84 16 152/84 H 12/28/19 23:38 36.7 C 90 18 162/53 H Pulse Ox 12/29/19 10:00 12/29/19 09:40 12/29/19 09:30 12/29/19 09:20 12/29/19 07:13 92 12/28/19 23:38 92 Coding Level of Care Code 04327 Subseq Hosp Care Lvl 2 Diagnoses ESRD (end stage renal disease) on dialysis N18.6; Z99.2
[2019-12-29] MEDS: TRAMADOL HCL 50 MG TABLET PO PRN (13:54)
--- NOTE | 2019-12-29 16:54 | Orthopedic Progress Note ---
Date of Service December 29, 2019 Assessment & Plan (1) Pelvic ring fracture: WBAT LLE with 4 prong stabilization cane, assist OOB from bed to chair and bathroom DVT prophy deferred to medical service due to rectal bleeding and anemia PT/OT (2) Left humeral fracture: Nonweightbearing in Left UE with sling use when ambulatory Ice with EZ wrap Use care when moving arm to initiate dialysis treatment PO pain control per medicine service discretion. Follow-up [facility] 2 weeks with x-rays Admission and Anticipated Discharge Date Admission Date: December 24, 2019 Subjective Patient work with physical therapy over the weekend. 2 person assist to get her out of bed. Pain is slowly improving. She is set up for rehab tomorrow. Physical Exam Physical Exam: Lying in bed in no apparent distress. Left upper extremity exam shows her to be neuro intact. screw machine tender over the proximal humerus. Intact active range of motion of the fingers wrist elbow and hand. Shoulder range of motion deferred due to the fracture. Left lower extremity exam shows active flexion and abduction to be intact. Neurovascular intact Results & Data ([facility]) Vital Signs (Past 12 Hours) Vital Signs Temp Pulse Pulse Pulse Pulse Resp BP 12/29/19 15:02 36.9 C 96 H 18 12/29/19 12:25 36.8 C 88 16 12/29/19 12:20 36.8 C 88 86 12/29/19 11:55 86 113/63 12/29/19 11:40 83 124/62 12/29/19 11:20 87 153/69 H 12/29/19 11:00 89 150/76 H 12/29/19 10:40 90 137/59 L 12/29/19 10:20 82 153/69 H 12/29/19 10:00 87 121/68 12/29/19 09:40 83 146/71 H 12/29/19 09:30 81 178/77 H 12/29/19 09:20 36.9 C 86 12/29/19 07:13 36.9 C 84 16 BP Pulse Ox 12/29/19 15:02 147/70 H 93 12/29/19 12:25 163/71 H 95 12/29/19 12:20 160/73 H 12/29/19 11:55 12/29/19 11:40 12/29/19 11:20 12/29/19 11:00 12/29/19 10:40 12/29/19 10:20 12/29/19 10:00 12/29/19 09:40 12/29/19 09:30 12/29/19 09:20 12/29/19 07:13 152/84 H 92
[2019-12-29] MEDS: FERROUS SULFATE 325 MG TAB PO SCH (20:17)
[2019-12-29] MEDS: CHOLECALCIFEROL 1,000 UNITS 25 MCG TAB PO SCH (20:17)
[2019-12-29] MEDS: MoRPHine SULFATE 2 MG/ML CARP IV PRN (20:30)
[2019-12-29] MEDS: ZOLPIDEM TARTRATE 5 MG TAB PO PRN (23:10)
[2019-12-30] MEDS: ACETAMINOPHEN 500 MG TAB PO SCH ×2 (06:00→13:14)
[2019-12-30] MEDS: SENNA 8.6 MG TAB PO SCH (07:52)
[2019-12-30] MEDS: NEPHROCAPS PO SCH (07:52)
[2019-12-30] MEDS: CALCIUM 600MG + VIT D 400 IU TAB PO SCH (07:52)
[2019-12-30] MEDS: HydrALAZINE 10 MG TAB PO SCH ×2 (07:52→13:14)
[2019-12-30] MEDS: POLYETHYLENE (MIRALAX) 17 GM PACK PO SCH (07:52)
[2019-12-30] MEDS: METOPROLOL TARTRATE 25 MG TAB PO SCH (07:53)
[2019-12-30] MEDS: MoRPHine SULFATE 2 MG/ML CARP IV PRN (08:17)
[2019-12-30] MEDS: LIDOCAINE 5% 1 PATCH TD SCH (09:48)
--- NOTE | 2019-12-30 10:00 | Nephrology Progress Note ---
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 Has been dialysis Sunday, Sunday at [facility] per dialysis unit. She was admitted on 12/24/2019 after she had a fall at and found to have pelvic rim fracture. Was evaluated by Orthopedics and recommended immobilization and rehab. -- plan for dialysis tomorrow as her regular schedule and for just 2 hours as she has been uncomfortable with her pelvic pain and refusing more than 2 hours -- continue renal diet, dose medications for GFR less. left arm nephrology precaution. --waiting on DC to rehab Will follow Admission and Anticipated Discharge Date Admission Date: December 24, 2019 Subjective Diane was seen and examined this morning. She continues to have significant pain in her pelvis with any kind of movement and not sure whether she is ready for discharge to Rehab. Continues to refuse to have more than 2 hours dialysis. Review of Systems Review of Systems: All systems reviewed & are unremarkable except as noted in HPI & below Physical Exam Constitutional: WD/WN, vitals as above + ill appearing; no acute distress Respiratory: normal respiratory effort, lungs clear to auscultation Cardiovascular: RRR, no murmur, no edema Neurologic: moves all extremities and awake; not confused Psychiatric: A+Ox3, euthymic affect Results & Data ([facility]) Vital Signs (Past 12 Hours) Vital Signs Temp Pulse Pulse Resp BP Pulse Ox 12/30/19 06:58 36.8 C 83 16 173/74 H 92 12/29/19 23:00 37 C 80 16 166/73 H 94 PG Care Time/CCT Total # of Minutes Spent Total Time Spent with Patient: Total time spent is greater than 50% in coordination of care (as documented) at patient's floor/unit and/or counseling patient: Coding Level of Care Code 84124 Subseq Hosp Care Lvl 2 Diagnoses ESRD (end stage renal disease) on dialysis N18.6; Z99.2
[2019-12-30] MEDS: TRAMADOL HCL 50 MG TABLET PO PRN (10:58)
--- NOTE | 2019-12-30 12:28 | Hospitalist Progress Note ---
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 -Fell after ambulating back to bed from bathroom while looking at phone. Denies head trauma or LOC -Left shoulder XR with impacted left humeral neck fracture that extends into the humeral head, likely acute -CT pelvis with acute left pubic ring fractures with mild surrounding hemorrhage and intramuscular hemorrhage is noted within the left obturator internus -Hemodynamically stable with hgb at baseline of 11 -Discussed with orthopedic service, who feel that both fracture are non- operative and they will evaluate during admission Pelvic fracture: WBAT with 4 prong stabilization cane OOB from bed to chair and bathroom DVT prophy deferred to medical service due to rectal bleeding and anemia, SCDs PT/OT eval Left humerus fx: Nonweightbearing in Left UE with sling use when ambulatory Ice with EZ wrap Use care when moving arm to initiate dialysis treatment PO pain control per medicine service discretion. (Patient declining Tylenol, and tramadol, as she states it does not work for her. Discussed that morphine is not very safe medication for kidney patient. Agrees to try lidocaine patch on her left shoulder, this she reported helps) Follow-up w/ Dr. Dykes 2 weeks with x-rays -LLE weightbearing as tolerated, LUE nonweightbearing -PT/OT evaluation. discharge planning for likely Rehab or SNF placement (currently lives with family) -12/27, patient more in pain in her chest area after movement by aids. Says that when she first woke up she felt actually quite well. Chest x-ray obtained to evaluate for possible rib fractures or any complications, unremarkable. States she feels better. Continue pain management. -12/28 patient had a bowel movement today and feels much better (4) UTI (urinary tract infection): Abnormal UA. Will treat empirically with Rocephin while urine culture results. Wong in place -Urine culture positive for Klebsiella pneumonia, continued Rocephin, Abx treatment finished (5) ESRD (end stage renal disease) on dialysis: ESRD (end stage renal disease) on MWF dialysis -Routine nephrology consult for HD (6) Autoimmune hepatitis: Hx of liver transplant x 2 for AIH, second transplant done for infection -Continue Everolimus (7) HTN (hypertension): Continue hydralazine, nebivolol (8) Anemia: Hgb ~ 11 on admission. Now down to ~ 9, received Epo by nephrology -continue to monitor in setting of pelvic fracture, ongoing bleeding hemorrhoids -follow up H&H as outpt (9) Insomnia: Ambien HS as needed but caution while patient also receiving narcotics DVT Ppx: SCDs Code status: FULL PCP: Leena Dispo: Admit to med surg. Discharge planning ordered. Plan to discharge to [facility] today. Admission and Anticipated Discharge Date Admission Date: December 24, 2019 Subjective Patient is lying in bed, in no acute distress. No fevers, chills, chest pain, shortness of breath, abdominal pain. She had a bowel movement yesterday and also today. She is worried about transportation to rehab as she is hurting with movements. Discussed with case management, to assure that we have as smooth transportation set up for the patient as possible. Also recommend to give pain medications prior to transportation. Review of Systems Review of Systems: All systems reviewed & are unremarkable except as noted in HPI & below Constitutional: no fever and no chills Respiratory: no cough and no dyspnea Cardiovascular: no chest pain and no palpitations Gastrointestinal: no abdominal pain, no nausea and no vomiting Physical Exam Physical Exam: General Appearance: Elderly female, sitting up in bed, WD/WN, vitals as above, conversing easily Head: normocephalic, atraumatic Eyes: normal inspection, PERRL, conjunctivae normal, anicteric sclerae ENT: external ear and nose normal, oropharynx normal Neck: normal visual inspection, trachea midline, no thyromegaly Respiratory: normal respiratory effort, lungs clear to auscultation, no wheeze, rales, rhonchi. No accessory muscle use Cardiovascular: regular rate, rhythm, + soft systolic murmur, normal peripheral pulses, no BLE edema Abdomen/GI: normal bowel sounds, soft, nontender to palpation Extremities/Musculoskeletal: LUE in sling, TTP along shoulder and upper arm. TTP of left upper leg and groin, pain with mvmt. No deformities noted. Moves extremities spontaneously, pain with movement. Neurologic: PERRL, EOMI, no facial asymmetry, no dysarthria, moves all extremities Psychiatric: A+Ox3 Skin: no rashes, normal color, warm/dry Results & Data Results & Data ([facility]) Vital Signs (Past 12 Hours) Vital Signs Temp Pulse Resp BP Pulse Ox 12/30/19 06:58 36.8 C 83 16 173/74 H 92 Medications Administered Current Inpatient Medications Acetaminophen (Acetaminophen 500 Mg Tab) 500 mg PO Q6 DAGOBERTO Stop: 01/24/20 11:14 Last Admin: 12/30/19 06:00 Dose: Not Given Documented by: Bisacodyl (Bisacodyl 10 Mg Supp) 10 mg MI BID PRN PRN Reason: Constipation Stop: 01/27/20 16:23 Everolimus (Everolimus 0.5 Mg Tablet) 2 ea PO BID DAGOBERTO Stop: 01/23/20 20:59 Last Admin: 12/30/19 07:53 Dose: 2 ea Documented by: Ferrous Sulfate (Ferrous Sulfate 325 Mg Tab) 325 mg PO HS DAGOBERTO Stop: 01/23/20 20:59 Last Admin: 12/29/19 20:17 Dose: 325 mg Documented by: Hydralazine HCl (Hydralazine Hcl 20 Mg/Ml Vial) 5 mg IV Q6H PRN PRN Reason: SBP > 180 Stop: 01/23/20 16:38 Last Admin: 12/26/19 23:13 Dose: 5 mg Documented by: Hydralazine HCl (Hydralazine 10 Mg Tab) 10 mg PO TID DAGOBERTO Stop: 01/26/20 08:59 Last Admin: 12/30/19 07:52 Dose: 10 mg Documented by: Lidocaine (Lidocaine 5% 1 Patch) 1 patch TD QAM DAGOBERTO Stop: 01/24/20 13:59 Last Admin: 12/30/19 09:48 Dose: 1 patch Documented by: Magnesium Hydroxide (Magnesium Hydroxide Susp 30 Ml Udc) 30 ml PO Q6H PRN PRN Reason: Constipation Stop: 01/27/20 16:23 Last Admin: 12/29/19 12:30 Dose: 30 ml Documented by: Metoprolol Tartrate (Metoprolol Tartrate 25 Mg Tab) 50 mg PO BID [facility] Stop: 01/23/20 14:29 Last Admin: 12/30/19 07:53 Dose: 50 mg Documented by: Miscellaneous (Remove Lidoderm Patch) 1 ea N/A DAILY@2100 DAGOBERTO Stop: 01/24/20 13:59 Last Admin: 12/29/19 20:18 Dose: 1 ea Documented by: Morphine Sulfate (Morphine Sulfate 2 Mg/Ml Carp) 2 mg IV Q3H PRN PRN Reason: Pain Stop: 01/07/20 13:59 Last Admin: 12/30/19 08:17 Dose: 2 mg Documented by: Morphine Sulfate (Morphine Sulfate 2 Mg/Ml Carp) 2 mg IV UD PRN PRN Reason: Pls give prior to PT for pain Stop: 01/09/20 15:01 Multivitamins/Minerals (Calcium 600mg + Vit D 400 Iu Tab) 1 tab PO BID DAGOBERTO Stop: 01/23/20 20:59 Last Admin: 12/30/19 07:52 Dose: 1 tab Documented by: Oxycodone HCl (Oxycodone Hcl Ir 5 Mg Tab (Immediate Release)) 5 - 10 mg PO Q6H PRN PRN Reason: Pain Stop: 01/09/20 15:47 Last Admin: 12/29/19 08:34 Dose: 10 mg Documented by: Polyethylene Glycol (Polyethylene (Miralax) 17 Gm Pack) 17 gm PO BID DAGOBERTO Stop: 01/27/20 20:59 Last Admin: 12/30/19 07:52 Dose: 17 gm Documented by: Sennosides (Senna 8.6 Mg Tab) 8.6 mg PO BID DAGOBERTO Stop: 01/27/20 20:59 Last Admin: 12/30/19 07:52 Dose: 8.6 mg Documented by: Tramadol HCl (Tramadol Hcl 50 Mg Tablet) 50 mg PO Q6H PRN PRN Reason: Pain Stop: 01/24/20 10:35 Last Admin: 12/30/19 10:58 Dose: 50 mg Documented by: Vitamin B Complex/Folic Acid (Nephrocaps) 1 cap PO BID DAGOBERTO Stop: 01/23/20 20:59 Last Admin: 12/30/19 07:52 Dose: 1 cap Documented by: Vitamin D (Cholecalciferol 1,000 Units 25 Mcg Tab) 2,000 units PO HS DAGOBERTO Stop: 10/09/20 20:59 Last Admin: 12/29/19 20:17 Dose: 2,000 units Documented by: Zolpidem Tartrate (Zolpidem Tartrate 5 Mg Tab) 5 mg PO HS PRN PRN Reason: sleep Stop: 01/23/20 13:40 Last Admin: 12/29/19 23:10 Dose: 5 mg Documented by: (1) HTN (hypertension) Hypertension type: essential hypertension Qualified Code(s): I10 - Essential (primary) hypertension
[2019-12-30] MEDS ORDERED: POLYETHYLENE (MIRALAX) 17 GM PACK PO PRN (12:41)
[2019-12-30] MEDS ORDERED: SENNA 8.6 MG TAB PO PRN (12:41)
--- NOTE | 2019-12-30 12:49 | Discharge Summary ---
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 Patient took her Ambien sleeping pill and use the restroom as usual and had walked back to bedside and was looking at phone when she suddenly found herself on the floor. Denies tripping over anything or losing her balance. Feels like her legs gave out from under her. Denies any head trauma or loss of consciousness. No preceding chest pain, palpitations or shortness of breath. Presenting with left shoulder and left groin pain, both exacerbated with movement. Not take any of her morning medications today. Denies any fever, chills, lightheadedness, visual changes, chest pain, palpations, shortness of breath, nausea, vomiting, abdominal pain, dysuria, hematuria or constipation. Does have ongoing loose, bloody bowel movements attributed to hemorrhoids. Recent negative GI work-up with EGD and colonoscopy. Hemoglobin is stable at baseline around 11. Patient lives with family and is ambulatory at baseline. Admission Exam Per Admitting Provider General Appearance: WD/WN, vitals as above, conversing easily Head: normocephalic, atraumatic Eyes: normal inspection, PERRL, conjunctivae normal, anicteric sclerae ENT: external ear and nose normal, oropharynx normal Neck: normal visual inspection, trachea midline, no thyromegaly Respiratory: normal respiratory effort, lungs clear to auscultation, no wheeze, rales, rhonchi. No accessory muscle use Cardiovascular: regular rate, rhythm, + systolic murmur, normal peripheral pulses, no BLE edema Abdomen/GI: normal bowel sounds, soft, nontender, no hepatosplenomegaly Extremities/Musculoskeletal: LUE in sling, TTP along shoulder and upper arm. NVI distally. TTP of left upper leg and groin, pain with mvmt. No deformities noted. Extremities motor strength 5/5 Neurologic: PERRL, EOMI, no dysarthria, CN's II-XI intact bilaterally and moves all extremities Psychiatric: A+Ox3, anxious mood Skin: no rashes, normal color, warm/dry Principal Diagnosis Left humeral neck fracture, pelvic ring fracture Discharge Exam General Appearance: Elderly female, sitting up in bed, WD/WN, vitals as above, conversing easily Head: normocephalic, atraumatic Eyes: normal inspection, PERRL, conjunctivae normal, anicteric sclerae ENT: external ear and nose normal, oropharynx normal Neck: normal visual inspection, trachea midline, no thyromegaly Respiratory: normal respiratory effort, lungs clear to auscultation, no wheeze, rales, rhonchi. No accessory muscle use Cardiovascular: regular rate, rhythm, + soft systolic murmur, normal peripheral pulses, no BLE edema Abdomen/GI: normal bowel sounds, soft, nontender to palpation Extremities/Musculoskeletal: LUE in sling, TTP along shoulder and upper arm. TTP of left upper leg and groin, pain with mvmt. No deformities noted. Moves extremities spontaneously, pain with movement. Neurologic: PERRL, EOMI, no facial asymmetry, no dysarthria, moves all extremities Psychiatric: A+Ox3 Skin: no rashes, normal color, warm/dry Discharge Data Allergies Allergy/AdvReac Type Severity Reaction Status Date / Time No Known Allergies Allergy Verified 12/24/19 04:25 Consultations 12/24/19 07:13 ED Decision to Admit Stat 12/24/19 13:41 Consult Case Management - Discharge Planning Routine Consult Nephrology Routine 12/25/19 10:26 Consult Orthopedic Surgery Routine 12/28/19 09:01 Consult Patient Rep / Service Excellence [Consult Patient Services] Routine Ordered Studies 12/24/19 05:17 CT pelvis wo con Urgent IMPRESSION: 1. There are acute left pubic ring fractures with mild surrounding hemorrhage. 2. Intramuscular hemorrhage is noted within the left obturator internus. 3. Additional chronic/healed fractures as above. 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 -Fell after ambulating back to bed from bathroom while looking at phone. Denies head trauma or LOC -Left shoulder XR with impacted left humeral neck fracture that extends into the humeral head, likely acute -CT pelvis with acute left pubic ring fractures with mild surrounding hemorrhage and intramuscular hemorrhage is noted within the left obturator internus -Hemodynamically stable with hgb at baseline of 11 -Discussed with orthopedic service, who feel that both fracture are non- operative and they will evaluate during admission Pelvic fracture: WBAT with 4 prong stabilization cane OOB from bed to chair and bathroom DVT prophy deferred to medical service due to rectal bleeding and anemia, SCDs PT/OT eval Left humerus fx: Nonweightbearing in Left UE with sling use when ambulatory Ice with EZ wrap Use care when moving arm to initiate dialysis treatment PO pain control per medicine service discretion. (Patient declining Tylenol, and tramadol, as she states it does not work for her. Discussed that morphine is not very safe medication for kidney patient. Agrees to try lidocaine patch on her left shoulder, this she reported helps) Follow-up w/ Dr. Dykes 2 weeks with x-rays -LLE weightbearing as tolerated, LUE nonweightbearing -PT/OT evaluation. discharge planning for likely Rehab or SNF placement (currently lives with family) -12/27, patient more in pain in her chest area after movement by aids. Says that when she first woke up she felt actually quite well. Chest x-ray obtained to e valuate for possible rib fractures or any complications, unremarkable. States she feels better. Continue pain management. -12/28 patient had a bowel movement today and feels much better (4) UTI (urinary tract infection): Abnormal UA. Will treat empirically with Rocephin while urine culture results. Wong in place -Urine culture positive for Klebsiella pneumonia, continued Rocephin, Abx treatment finished (5) ESRD (end stage renal disease) on dialysis: ESRD (end stage renal disease) on MWF dialysis -Routine nephrology consult for HD (6) Autoimmune hepatitis: Hx of liver transplant x 2 for AIH, second transplant done for infection -Continue Everolimus (7) HTN (hypertension): Continue hydralazine, nebivolol (8) Anemia: Hgb ~ 11 on admission. Now down to ~ 9, received Epo by nephrology -continue to monitor in setting of pelvic fracture, ongoing bleeding hemorrhoids -follow up H&H as outpt (9) Insomnia: Ambien HS as needed but caution while patient also receiving narcotics DVT Ppx: SCDs Code status: FULL PCP: Leena Dispo: Admit to med surg. Discharge planning ordered. Plan to discharge to [facility] today. Total Time Total Time Spent Total Time Spent (In Minutes): 35 Total Time Includes: Examination of the Patient, Discharge Planning, Medication Reconciliation and Communication With Other Providers Discharge Plan Discharge Items Patient Disposition: Transfer Inpatient Rehab Fac Reason For Visit: L HUMERAL NECK FX, L PUBIC RING FX Discharge Diagnosis: Left humeral neck fracture, pelvic ring fracture Activity: Per Instructions section Non-emergency contact: Primary Care Provider and Surgeon Call non-emergency contact if: you have any medication questions and your symptoms worsen Follow-up/Referrals: Lucius Stern MD [Primary Care Provider] - Diet: Dialysis Renal Addtl Attending Provider Instructions: Follow-up with Dr. Dykes within 2 weeks with X-rays. For pain you can take tramadol or oxycodone as prescribed. While taking pain (opioid) medications, you will need to take stool softeners to prevent constipation. Continue to use lidocaine patch on your left shoulder. Pending Studies at Discharge: No Stand-Alone Forms: My [facility] Skilled Items Patient informed of condition?: Yes DNR: No Discharge Level of Care: Acute rehab Communicable Disease: No Discharge Prognosis: Stable Lines: None Urinary Catheter: Yes Medications and DC Order Prescriptions: New oxycodone 5 mg Tablet 5 - 10 mg PO Q6H PRN (Reason: pain) 10 Days RF: 0 tramadol 50 mg Tablet 50 mg PO Q6H PRN (Reason: pain) Qty: 10 RF: 0 acetaminophen 500 mg Tablet 500 mg PO Q6 Qty: 14 RF: 0 lidocaine 5 % Adhesive Patch,Medicated 1 patch transdermal QAM 10 Days RF: 0 bisacodyl 10 mg Suppository 10 mg NH BID PRN (Reason: constipation) Qty: 12 RF: 0 polyethylene glycol 3350 [Miralax] 17 gram Powder In Packet 17 g PO BID PRN (Reason: constipation) 10 Days RF: 0 sennosides [Senokot] 8.6 mg Tablet 8.6 mg PO BID PRN (Reason: constipation) Qty: 10 RF: 0 Continued ferrous sulfate 325 mg (65 mg iron) Tablet 325 mg PO HS RF: 0 calcium carbonate-vitamin D3 [Calcium 500 + D] 500 mg(1,250mg) -200 unit Tablet 1 tab PO BID RF: 0 nebivolol 10 mg tablet 10 mg PO QAM RF: 0 cholecalciferol (vitamin D3) [Vitamin D3] 2,000 unit Tablet 2,000 unit PO HS RF: 0 everolimus (immunosuppressive) 0.5 mg tablet 1 mg PO BID RF: 0 zolpidem 5 mg Tablet 5 mg PO HS PRN (Reason: sleep) Qty: 10 RF: 0 Nepro Carb Steady 0.08 gram-1.8 kcal/mL Liquid 1 ea PO BID RF: 0 Changed hydralazine 10 mg tablet 10 mg PO TID Qty: 0 RF: 0 Discharge Orders: Discharge Order (Routine); Ordered 12/30/19 Ordered By: Darius Werner Admission Data Admit Date/Time: 12/24/19 11:29 Attending Provider: Darius Werner Admit Provider: Darius Werner Primary Care Provider: Lucius Stern Other Providers: Ja Del Cid ; [facility] ; Maico Dykes ; Patricia Echevarria ; Oziel Hyatt ; Josias Corrigan ; Dianna Newby ; Isai Chris
[2019-12-30] MEDS: OXYCODONE HCL IR 5 MG TAB (IMMEDIATE RELEASE) PO PRN (14:55)
== END 2019-12-30 15:05 | DRG 542 ==
LOC: ED 03:41 → 3W 11:29

== ENCOUNTER 2020-05-31 13:16 | Inpatient (IN) ==
[2020-05-31 13:41] LABS: Basophils # (auto) 0.01 K/uL (0-0.2); Basophils % (auto) 0.2 %; Eosinophils # (auto) 0.05 K/uL (0-0.5); Hematocrit (blood only) 32.2 % (37-47); Hemoglobin 10.6 g/dL (12.0-16.0); Immature Granulocytes # (auto) 0.01 K/uL (0.00-0.02); Immature Granulocytes % (auto) 0.2 %; Lymphocytes # (auto) 1.47 K/uL (1.2-3.4); Lymphocytes % (auto) 30.4 %; Mean Corpuscular Hgb Conc 32.9 g/dL (32-36); Mean Corpuscular Volume 82.1 fL (80-100); Mean Platelet Volume 10.2 fL (7.4-10.4); Monocytes # (auto) 0.56 K/uL (0.11-0.59); Monocytes % (auto) 11.6 %; Neutrophils # (auto) 2.73 K/uL (1.4-6.5); Neutrophils % (auto) 56.6 %; Platelet Count 134 K/uL (130-400); RDW Coefficient of Variation 18.5 % (11.5-14.5); RDW Standard Deviation 55.8 fL (36.4-46.3); Red Blood Count 3.92 M/uL (4.2-5.4); White Blood Count 4.83 K/uL (4.8-10.8)
--- NOTE | 2020-05-31 13:42 | Emergency Department Note ---
History of Present Illness General Chief Complaint: Confusion Time Seen by Provider: 05/31/20 13:21 Source: patient Mode of arrival: ambulatory Limitations: no limitations History of Present Illness Provider complaint: altered mental status and confusion This is a 80-year-old female who presents to the ED from dialysis. The patient was reportedly at dialysis this morning when around 1230 today when she became agitated and confused and she was speaking in Greenlandic instead of American. The patient reported to dialysis this morning in a wheelchair and normally walks in but recently had a fall where she injured her right wrist and hurt her left foot. She was sent here for further evaluation due to the sudden change. The patient had her entire dialysis treatment today prior to coming. The patient provides no additional useful information other than when questioned, she does say yes to a headache and states that her headache is all over. She appears to be looking on the round the room as if hallucinating. She is looking to the left and the right. Her exam is difficult because she does not follow commands. Home Medications Medication Instructions Recorded Confirmed Type calcium carbonate-vitamin D3 1 tab PO BID 06/03/18 05/31/20 History [Calcium 500 + D] cholecalciferol (vitamin D3) 2,000 unit PO HS 06/03/18 05/31/20 History [Vitamin D3] everolimus (immunosuppressive) 1 mg PO BID 06/03/18 05/31/20 History ferrous sulfate 325 mg PO HS 06/03/18 05/31/20 History nebivolol 10 mg PO QAM 06/03/18 05/31/20 History zolpidem 5 mg PO HS PRN #10 tab 08/23/18 05/31/20 Rx B complex with C 20-folic acid 1 cap PO DAILY 05/31/20 05/31/20 History [Triphrocaps] Nephro Carb Steady 8 oz PO UD 05/31/20 05/31/20 History acetaminophen 650 mg PO Q6H PRN 05/31/20 05/31/20 History ascorbic acid (vitamin C) 1 g PO DAILY 05/31/20 05/31/20 History dextromethorphan-guaifenesin 1 tab PO Q12H 05/31/20 05/31/20 History [Mucinex DM] hydralazine 10 mg PO BID 05/31/20 05/31/20 History loperamide 4 mg PO UD PRN 05/31/20 05/31/20 History Allergies Allergy/AdvReac Type Severity Reaction Status Date / Time No Known Allergies Allergy Verified 05/28/20 10:37 Past Med/Surg History Medical History (Updated 05/31/20 @ 15:33 by Isai Nye DO) Autoimmune hepatitis s/p liver tx x2 2005 and 2006 BRBPR (bright red blood per rectum) History of renal dialysis HLD (hyperlipidemia) HTN (hypertension) Hx of compression fracture of spine Insomnia Osteoporosis Pancreatic cyst Surgical History H/O detached retina repair 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, ?CMV Hx of liver transplant S/P cataract extraction and insertion of intraocular lens S/P tubal ligation Social History Smoking Status: Unknown if ever smoked Second Hand Exposure: No; Hx Alcohol Use: No Hx Substance Use: No Preferred Language: American Communication Ability: Effective Visual Impairment: No Limitations Hearing Ability: Normal Moisture Machine Tender Required: No Beliefs That Will Affect Care: None marital status: Single Current Living Situation: Family Current Living Situation Comment: lives with son current occupational status: retired Feels Safe at Home: Yes Assistive Devices: None Review of Systems Unobtainable due to cognitive status Physical Exam Vital Signs Vital Signs - 24 hr 05/31/20 13:07 05/31/20 13:22 05/31/20 13:29 Temperature 36.5 C Temperature Source Axillary Pulse Rate 87 84 89 Pulse Rate from SpO2 Sensor 84 88 Respiratory Rate 20 18 19 Respiratory Effort / Characteristics Spontaneous Blood Pressure 227/90 H 227/90 H Blood Pressure Mean 135 135 Pulse Oximetry 96 98 98 Oxygen Delivery Method Room Air Sepsis Recent Fever Within 48 Hours No Sepsis New/Unexplained Change in Mental Status Yes Sepsis Action Taken by Nursing No Action Required 05/31/20 13:30 05/31/20 13:39 05/31/20 13:41 Temperature Temperature Source Pulse Rate 94 H 90 92 H Pulse Rate from SpO2 Sensor 93 H 88 92 H Respiratory Rate 33 H 14 19 Respiratory Effort / Characteristics Blood Pressure 221/98 H Blood Pressure Mean 139 Pulse Oximetry 95 96 97 Oxygen Delivery Method Sepsis Recent Fever Within 48 Hours Sepsis New/Unexplained Change in Mental Status Sepsis Action Taken by Nursing 05/31/20 13:45 05/31/20 13:58 05/31/20 14:00 Temperature Temperature Source Pulse Rate 88 82 82 Pulse Rate from SpO2 Sensor 89 81 82 Respiratory Rate 15 15 16 Respiratory Effort / Characteristics Blood Pressure 222/92 H 224/96 H 229/94 H Blood Pressure Mean 135 138 139 Pulse Oximetry 97 97 97 Oxygen Delivery Method Sepsis Recent Fever Within 48 Hours Sepsis New/Unexplained Change in Mental Status Sepsis Action Taken by Nursing 05/31/20 14:01 05/31/20 14:10 05/31/20 14:15 Temperature Temperature Source Pulse Rate 90 90 85 Pulse Rate from SpO2 Sensor 90 91 H 87 Respiratory Rate 17 16 14 Respiratory Effort / Characteristics Blood Pressure 211/102 H Blood Pressure Mean 138 Pulse Oximetry 97 98 97 Oxygen Delivery Method Sepsis Recent Fever Within 48 Hours Sepsis New/Unexplained Change in Mental Status Sepsis Action Taken by Nursing 05/31/20 14:20 05/31/20 14:30 05/31/20 14:31 Temperature Temperature Source Pulse Rate 86 83 88 Pulse Rate from SpO2 Sensor 86 84 Respiratory Rate 17 20 16 Respiratory Effort / Characteristics Blood Pressure 209/88 H Blood Pressure Mean 128 Pulse Oximetry 96 96 Oxygen Delivery Method Sepsis Recent Fever Within 48 Hours Sepsis New/Unexplained Change in Mental Status Sepsis Action Taken by Nursing 05/31/20 14:40 05/31/20 14:45 05/31/20 14:50 Temperature Temperature Source Pulse Rate 90 79 83 Pulse Rate from SpO2 Sensor 88 78 84 Respiratory Rate 20 14 22 Respiratory Effort / Characteristics Blood Pressure 203/81 H Blood Pressure Mean 121 Pulse Oximetry 98 96 97 Oxygen Delivery Method Sepsis Recent Fever Within 48 Hours Sepsis New/Unexplained Change in Mental Status Sepsis Action Taken by Nursing 05/31/20 15:00 05/31/20 15:10 Temperature Temperature Source Pulse Rate 85 87 Pulse Rate from SpO2 Sensor 85 86 Respiratory Rate 23 17 Respiratory Effort / Characteristics Blood Pressure Blood Pressure Mean Pulse Oximetry 98 96 Oxygen Delivery Method Sepsis Recent Fever Within 48 Hours Sepsis New/Unexplained Change in Mental Status Sepsis Action Taken by Nursing CONSTITUTIONAL/VITAL SIGNS: Reviewed / noted above. GENERAL: Non-toxic in appearance. She appears to be anxious or agitated. INTEGUMENTARY: Warm, dry, and [place]. HEAD: Normocephalic. EYES: without scleral icterus or trauma. ENT/OROPHARYNX: clear and moist. LYMPHADENOPATHY/NECK: Is supple without lymphadenopathy or meningismus. RESPIRATORY: Lungs clear and equal. CARDIOVASCULAR: Regular rate and rhythm. GI/ABDOMEN: Soft and nontender. No organomegaly or pulsatile mass. No rebound or guarding. Normal bowel sounds. EXTREMITIES: Warm and well perfused. BACK: No CVA tenderness. NEUROLOGICAL: The patient does not follow commands. She is awake and appears alert. Her eyes are open and she at times looks around the room. She has a cast on her right wrist from her previous injury. On exam she seems to be flaccid at times but then is seem to be moving her extremities. She has symmetric strength in her lower extremities. No obvious facial droop. PSYCHIATRIC: Slightly anxious affect. The patient at times looks around the room as if hallucinating. MUSCULOSKELETAL: Normally developed with average muscle tone for age. Right wrist cast. Left foot postop shoe. TRIAGE NURSING DOCUMENTATION REVIEWED. Course Administered Medications Discontinued Medications Hydralazine HCl (Hydralazine Hcl 20 Mg/Ml Vial) 10 mg IV NOW STA Stop: 05/31/20 14:09 Last Admin: 05/31/20 14:42 Dose: 10 mg Documented by: [id number] Medical Decision Making Differential Diagnosis infection, electrolyte abnormalities, CVA, ICH, toxicologic, neurologic, ACS, altered mental status, delirium, dementia, hypoglycemia and hyponatremia Medical Records Attestation: I reviewed the patient's medical records. Home Medications Current Medication List: was personally reviewed by me Laboratory Data Attestation: I reviewed the patient's lab results. : 05/31/20 13:13 05/31/20 13:13 Lab Results 05/31/20 05/31/20 05/31/20 Range/Units 13:13 13:13 14:35 WBC 4.83 (4.8-10.8) K/uL RBC 3.92 L (4.2-5.4) M/uL Hgb 10.6 L (12.0-16.0) g/dL Hct 32.2 L (37-47) % MCV 82.1 (80-100) fL MCH 27.0 (25-34) pg MCHC 32.9 (32-36) g/dL RDW Std Deviation 55.8 H (36.4-46.3) fL RDW Coeff of Darci 18.5 H (11.5-14.5) % Plt Count 134 (130-400) K/uL MPV 10.2 (7.4-10.4) fL Immature Gran % (Auto) 0.2 % Neut % (Auto) 56.6 % Lymph % (Auto) 30.4 % Fergus % (Auto) 11.6 % Eos % (Auto) 1.0 % Baso % (Auto) 0.2 % Neut # (Auto) 2.73 (1.4-6.5) K/uL Lymph # (Auto) 1.47 (1.2-3.4) K/uL Fergus # (Auto) 0.56 (0.11-0.59) K/uL Eos # (Auto) 0.05 (0-0.5) K/uL Baso # (Auto) 0.01 (0-0.2) K/uL Immature Gran # (Auto) 0.01 (0.00-0.02) K/uL Sodium 139 (136-145) mmol/L Potassium 3.5 (3.5-5.1) mmol/L Chloride 102 (98-107) mmol/L Carbon Dioxide 26 (21-32) mmol/L Anion Gap 11.0 (3-11) BUN 35 H (7-18) mg/dl Creatinine 3.58 H (0.6-1.2) mg/dl Est Cr Clr Drug Dosing 8.4 ml/min Est GFR ( Amer) 13.4 Est GFR (Non-Af Amer) 11.5 BUN/Creatinine Ratio 9.9 L (10-20) Glucose 94 (70-99) mg/dl Calcium 9.3 (8.5-10.1) mg/dl Total Bilirubin 0.7 (0.2-1) mg/dl AST 39 H (15-37) U/L ALT 27 (12-78) U/L Alkaline Phosphatase 230 H (45-117) U/L Ammonia (11-32) umol/L Troponin I < 0.015 (0-0.045) ng/ml Total Protein 8.2 (6.4-8.2) gm/dl Albumin 3.3 L (3.4-5.0) gm/dl Globulin 4.9 H (2.5-4.0) gm/dl Albumin/Globulin Ratio 0.7 L (0.9-2) TSH 1.050 (0.300-4.500) uIu/ml Urine Color Yellow Urine Appearance Cloudy A (Clear) Urine pH 8.0 H (4.5-7.5) Ur Specific [place] 1.011 (1.000-1.030) Urine Protein 2+ H (Negative) Urine Glucose (UA) Negative (Negative) Urine Ketones Negative (Negative) Urine Blood 2+ H (Negative) Urine Nitrite Negative (Negative) Urine Bilirubin Negative (Negative) Urine Urobilinogen Negative (Negative) Ur Leukocyte Esterase 2+ H (Negative) Urine WBC (Auto) >30 H (0-5) /hpf Urine RBC (Auto) 5-10 H (0-4) /hpf U Hyaline Cast (Auto) 1-5 (0-5) /lpf U Epithel Cells (Auto) 0-5 (0-5) /lpf Urine Bacteria (Auto) 2+ H (Negative) 05/31/20 Range/Units 14:54 WBC (4.8-10.8) K/uL RBC (4.2-5.4) M/uL Hgb (12.0-16.0) g/dL Hct (37-47) % MCV (80-100) fL MCH (25-34) pg MCHC (32-36) g/dL RDW Std Deviation (36.4-46.3) fL RDW Coeff of Darci (11.5-14.5) % Plt Count (130-400) K/uL MPV (7.4-10.4) fL Immature Gran % (Auto) % Neut % (Auto) % Lymph % (Auto) % [place] % (Auto) % Eos % (Auto) % Baso % (Auto) % Neut # (Auto) (1.4-6.5) K/uL Lymph # (Auto) (1.2-3.4) K/uL [place] # (Auto) (0.11-0.59) K/uL Eos # (Auto) (0-0.5) K/uL Baso # (Auto) (0-0.2) K/uL Immature Gran # (Auto) (0.00-0.02) K/uL Sodium (136-145) mmol/L Potassium (3.5-5.1) mmol/L Chloride (98-107) mmol/L Carbon Dioxide (21-32) mmol/L Anion Gap (3-11) BUN (7-18) mg/dl Creatinine (0.6-1.2) mg/dl Est Cr Clr Drug Dosing ml/min Est GFR ( Amer) Est GFR (Non-Af Amer) BUN/Creatinine Ratio (10-20) Glucose (70-99) mg/dl Calcium (8.5-10.1) mg/dl Total Bilirubin (0.2-1) mg/dl AST (15-37) U/L ALT (12-78) U/L Alkaline Phosphatase (45-117) U/L Ammonia 30.2 (11-32) umol/L Troponin I (0-0.045) ng/ml Total Protein (6.4-8.2) gm/dl Albumin (3.4-5.0) gm/dl Globulin (2.5-4.0) gm/dl Albumin/Globulin Ratio (0.9-2) TSH (0.300-4.500) uIu/ml Urine Color Urine Appearance (Clear) Urine pH (4.5-7.5) Ur Specific [place] (1.000-1.030) Urine Protein (Negative) Urine Glucose (UA) (Negative) Urine Ketones (Negative) Urine Blood (Negative) Urine Nitrite (Negative) Urine Bilirubin (Negative) Urine Urobilinogen (Negative) Ur Leukocyte Esterase (Negative) Urine WBC (Auto) (0-5) /hpf Urine RBC (Auto) (0-4) /hpf U Hyaline Cast (Auto) (0-5) /lpf U Epithel Cells (Auto) (0-5) /lpf Urine Bacteria (Auto) (Negative) Imaging Data Radiologist's Impression: XR chest 1V portable HISTORY: 80 years-old Female weakness acute weakness with confusion COMPARISON: Chest and rib radiographs 05/26/2020 TECHNIQUE: Portable AP view of the chest FINDINGS: Cardiac silhouette is enlarged, unchanged. Calcified plaque of the thoracic aorta. Chronic right hemidiaphragmatic caliber with chronic interstitial coarsening. No pneumothorax, overt pulmonary edema or new airspace consolidation. Trace right pleural effusion suggested. Degenerative changes of the shoulders and spine. Acute lateral fracture of the right 10th rib is better seen on comparison. Surgical clips project over the left breast and axilla. IMPRESSION: 1. Cardiomegaly without acute process. 2. Acute fracture of the right lateral 10th rib is better seen on comparison study. No pneumothorax. CT head/brain wo con CLINICAL HISTORY: Effusion COMPARISON STUDY: 05/26/2020 TECHNIQUE: Axial CT of the brain is performed from the vertex to the skull base. IV contrast was not administered for this examination. A dose lowering technique was utilized adhering to the principles of ALARA. CT DOSE: 537.48 mGy.cm FINDINGS: No intra or extra-axial mass lesions are visualized. There is no CT evidence of acute cortical infarction. There is no evidence of midline shift. There is no acute hemorrhage. No calvarial fractures are visualized. There are patchy white matter hypodensities likely on a small vessel basis. There is no evidence of pathologic ventricular dilatation. There is a stable small sphenoid sinus air-fluid level. IMPRESSION: No acute intracranial findings ECG Data Attestation: I personally reviewed and interpreted this ECG as follows: Indication: altered mental status Rate (beats per minute): 82 Rhythm: normal sinus Findings: no PVC, no ST elevation and no prolonged QT MDM Narrative Patient presents from dialysis today with a issue with sudden onset of confusion and agitation. She presents by ambulance. Prehospital blood sugar was 89. Exa m is somewhat difficult because the patient is not cooperative. She occasionally looks around the room as if hallucinating. She does not follow any commands but does answer some basic questions. She reported just to headache all over. She has been noticed to move her left arm independently although at times on exam it seems to be flaccid. The right arm also seems to be somewhat flaccid but at times she seems to move that although less than the left hand. She does have a cast on her right wrist area. She has symmetric strength in her legs. She has normal sensation in her arms and legs. At times she states "please" randomly. At other times he speaks a little Green[place]ic. A twelve-lead E KG shows a sinus rhythm at a rate of 82 without ischemic changes. The patient CBC and chemistry panel was unremarkable. Troponin was negative. TSH was normal. Urine is suggestive of infection. The patient was told the results. She will be seen by the hospitalist for further inpatient evaluation and care. She was given IV Rocephin during her ED stay. She was also given IV hydralazine for her hypertension. She does take oral hydralazine at home. Impression & Plan Acute UTI, Hypertensive urgency, Acute confusion Critical Care Time Critical Care Time: Yes Total Critical Care Time: 30 I have personally spent 30 minutes of critical care time in the direct management of this patient. This includes bedside care, interpretation of diagnostic studies, and testing, discussion with consultants, patient, and family members, and other required patient management activities. This 30 minutes is in excess of all separately billable procedures. Discharge Plan Visit Data Chief Complaint: Confusion ED Provider: Isai Nye Discharge Problem: Acute UTI, Hypertensive urgency, Acute confusion Patient Disposition: Being Evaluated by Hospitalist Forms Stand Alone Forms: My [facility] Prescriptions Prescriptions: No Action ferrous sulfate 325 mg (65 mg iron) Tablet 325 mg PO HS RF: 0 calcium carbonate-vitamin D3 [Calcium 500 + D] 500 mg(1,250mg) -200 unit Tablet 1 tab PO BID RF: 0 nebivolol 10 mg tablet 10 mg PO QAM RF: 0 cholecalciferol (vitamin D3) [Vitamin D3] 2,000 unit Tablet 2,000 unit PO HS RF: 0 everolimus (immunosuppressive) 0.5 mg tablet 1 mg PO BID RF: 0 zolpidem 5 mg Tablet 5 mg PO HS PRN (Reason: sleep) Qty: 10 RF: 0 acetaminophen 650 mg Tablet 650 mg PO Q6H PRN (Reason: Pain) RF: 0 Triphrocaps 1 mg capsule 1 cap PO DAILY RF: 0 hydralazine 10 mg tablet 10 mg PO BID RF: 0 ascorbic acid (vitamin C) 1,000 mg Tablet 1 g PO DAILY RF: 0 Mucinex DM 30-600 mg Tablet Extended Release 12 Hr 1 tab PO Q12H RF: 0 Nephro Carb Steady 8 oz PO UD RF: 0 loperamide 2 mg Tablet 4 mg PO UD PRN (Reason: Diarrhea) RF: 0 Referrals Referrals: Lucius Stern MD [Primary Care Provider] -
--- NOTE | 2020-05-31 13:51 | XRay Report ---
XR chest 1V portable HISTORY: 80 years-old Female weakness acute weakness with confusion COMPARISON: Chest and rib radiographs 05/26/2020 TECHNIQUE: Portable AP view of the chest FINDINGS: Cardiac silhouette is enlarged, unchanged. Calcified plaque of the thoracic aorta. Chronic right maria c diaphragmatic caliber with chronic interstitial coarsening. No pneumothorax, overt pulmonary edema or new airspace consolidation. Trace right pleural effusion suggested. Degenerative changes of the shou lders and spine. Acute lateral fracture of the right 10th rib is better seen on comparison. Surgical clips project over the left breast and axilla. IMPRESSION: 1. Cardiomegaly without acute process. 2. Acute fracture of the right lateral 10th rib is better seen on comparison study. No pneumothorax. ACT 112: Negative or not required by law. The above report was generated using voice recognition software. It may contain grammatical, syntax o r spelling errors. Electronically signed by: Mikey Montgomery M.D. 05/31/2020 1:50 PM
[2020-05-31 14:00] LABS: Alanine Aminotransferase 27 U/L (12-78); Albumin Level 3.3 gm/dl (3.4-5.0); Aspartate Aminotransferase 39 U/L (15-37); BUN Creatinine Ratio 9.9 (10-20); Blood Urea Nitrogen 35 mg/dl (7-18); Calcium 9.3 mg/dl (8.5-10.1); Carbon Dioxide 26 mmol/L (21-32); Chloride 102 mmol/L (98-107); Creatinine Clr Calc Pharmacy 8.4 ml/min; Est GFR (African American) 13.4; Est GFR (Non-African American) 11.5; Glucose 94 mg/dl (70-99); Potassium 3.5 mmol/L (3.5-5.1); Sodium 139 mmol/L (136-145)
[2020-05-31] MEDS ORDERED: hydrALAZINE HCL 20 MG/ML VIAL IV STA ×2 (14:08→15:32)
[2020-05-31 14:10] LABS: Albumin Globulin Ratio 0.7 (0.9-2); Alkaline Phosphatase 230 U/L (45-117); Bilirubin,Total 0.7 mg/dl (0.2-1); Globulin 4.9 gm/dl (2.5-4.0); Total Protein 8.2 gm/dl (6.4-8.2); Troponin I < 0.015 ng/ml (0-0.045)
--- NOTE | 2020-05-31 14:12 | CT Scan Report ---
CT head/brain wo con CLINICAL HISTORY: Effusion COMPARISON STUDY: 05/26/2020 TECHNIQUE: Axial CT of the brain is performed from the vertex to the skull base. IV contrast was not administered for this examination. A dose lowering technique was utilized adhering to the principles of ALARA. CT DOSE: 537.48 mGy.cm FINDINGS: No intra or extra-axial mass lesions are visualized. There is no CT evidence of acute cortical infarc tion. There is no evidence of midline shift. There is no acute hemorrhage. No calvarial fractures ar e visualized. There are patchy white matter hypodensities likely on a small vessel basis. There is no evidence of pathologic ventricular dilatation. There is a stable small sphenoid sinus air-fluid level. IMPRESSION: No acute intracranial findings ACT 112: Negative or not required by law. Electronically signed by: Dl Chaves M.D. 05/31/2020 2:11 PM
[2020-05-31 14:55] LABS: Appearance Urine Cloudy (Clear); Bacteria Urine Automated 2+ (Negative); Bilirubin Urine Negative (Negative); Blood Urine 2+ (Negative); Color Urine Yellow; Epithelial Cell Urine Auto 0-5 /lpf (0-5); Glucose Urine UA Negative (Negative); Ketones Urine Negative (Negative); Leukocyte Esterase Urine 2+ (Negative); Nitrite Urine Negative (Negative); Specific Gravity Urine 1.011 (1.000-1.030); Urobilinogen Urine Negative (Negative); WBC Urine Automated >30 /hpf (0-5)
[2020-05-31 15:01] LABS: Protein Urine 2+ (Negative)
[2020-05-31] MEDS ORDERED: cefTRIAXone SODIUM 1,000 MG/50 ML BAG IV STA (15:19)
--- NOTE | 2020-05-31 16:24 | History & Physical Report ---
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 On arrival pt with acute confusion, BP 227/90 and inability to answer questions approp/follow commands per ED provider. Received 10mg IV Hydralazine with improvement of BP 180/85. Received additional 10mg IV Hydralazine. During my evaluation pt was speaking tanzanian and answering questions appropriately although only oriented to self. Pt still appeared confused/agitated. Was sent to ED from HD. Per ED provider completed HD tx. UA concerning for UTI; although afebrile and WBC wnl - tx with IV rocephin ddx: HTN emergency with hypertensive encephalopathy, acute UTI, infectious, CVA, drug toxicity, sz d/o admit to PCU consult nephrology continue home bystolic and hydralazine with PRN IV hydralazine obtain blood cultures, procalcitonin, await urinalysis obtain drug tox screen Pt cognition improving with BP control PT/OT hold sedating medications including oxycodone, ambien (3) Acute UTI: await urine culture continue IV rocephin (4) Fx metacarpal: (5) Closed rib fracture: (6) Contusion of left foot: follows [facility] ortho, 2/2 to mechanical fall while at covid vaccine clinic cast to RUE for 2-3 weeks, placed 2/12 incentive spirometry, lidocaine patch for rib fx avoid narcotics given mental status changes (7) Anemia: 2/2 to renal disease h/h stable 10.6/32.3 (8) ESRD (end stage renal disease) on dialysis: HD MWF consult [facility] nephro obtain mag/phos electrolytes otherwise acceptable (9) Hx of liver transplant: Hx of liver transplant x 2 for AIH, second transplant done for infection continue everolimus (10) DVT prophylaxis: SQ Heparin q12h Dispo: PCU, discharge planning ordered, will need covid for d/c ordered for HD center PCP: Leena FULL CODE Pt was seen and examined in collaboration with Dr. Hood, please see addendum History of Present Illness Chief Complaint: Confusion while at HD prior to arrival. 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 She lives at home in in-law suite with her daughter Jacek. Most of history obtained from daughter. She was last known well prior to going to dialysis. She spoke to her mother as well last saw her prior to dialysis and felt like she was in her usual state of health. She does elicit yesterday she complained of not feeling well and had emesis x1. Of significance patient had her first dose of Covid vaccine 1 week ago and while obtaining the vaccine tripped and fell. She was seen in ED that same day and diagnosed with right fourth metacarpal fracture, left foot contusion and right lateral 10th rib fracture. She was seen and evaluated by orthopedics on 05/28 and placed in a right hand cast for 3 to 4 weeks in a postop shoe to left foot. She was prescribed oxycodone and daughter is unsure how many of these she had may have taken. Patient does manage her own medications. According to ER provider during his evaluation assessment patient was only speaking Iraqi and he was unable to elicit history. Patient does typically speak Egyptian per daughter. She did receive a total of 20 mg of IV hydralazine while in ED. During my evaluation she was able to answer questions although only alert and oriented to self. She complained of bilateral lower extremity pain and sore throat. She also persisted on standing up. She denies any recent illness, fever, chills, sweats, lightheadedness, dizziness, chest pain, shortness breath, cough, nausea, vomiting, hematemesis, melena or hematochezia. She does make minimal amounts of urine. She was straight catheterized and UA suspicious for UTI. She was started on IV antibiotics in ED. Per ED provider she did receive full treatment of HD today. Allergies Allergy/AdvReac Type Severity Reaction Status Date / Time No Known Allergies Allergy Verified 05/28/20 10:37 Home Medications Medication Instructions Recorded Confirmed Type calcium carbonate-vitamin D3 1 tab PO BID 06/03/18 05/31/20 History [Calcium 500 + D] cholecalciferol (vitamin D3) 2,000 unit PO HS 06/03/18 05/31/20 History [Vitamin D3] everolimus (immunosuppressive) 1 mg PO BID 06/03/18 05/31/20 History ferrous sulfate 325 mg PO HS 06/03/18 05/31/20 History nebivolol 10 mg PO QAM 06/03/18 05/31/20 History zolpidem 5 mg PO HS PRN #10 tab 08/23/18 05/31/20 Rx Mucinex DM 1 tab PO Q12H 05/31/20 05/31/20 History Nephro Carb Steady 8 oz PO UD 05/31/20 05/31/20 History Triphrocaps 1 cap PO DAILY 05/31/20 05/31/20 History acetaminophen 650 mg PO Q6H PRN 05/31/20 05/31/20 History ascorbic acid (vitamin C) 1 g PO DAILY 05/31/20 05/31/20 History hydralazine 10 mg PO BID 05/31/20 05/31/20 History loperamide 4 mg PO UD PRN 05/31/20 05/31/20 History oxycodone 5 mg PO Q6H PRN 05/31/20 05/31/20 History lidocaine 1 patch TRANSDERMAL HS #15 ea 06/05/20 Rx losartan 25 mg PO QAM #30 tab 06/05/20 Rx melatonin 3 mg PO HS PRN #30 tab 06/05/20 Rx Past Med/Surg History Medical History Autoimmune hepatitis s/p liver tx x2 2005 and 2006 BRBPR (bright red blood per rectum) History of renal dialysis HLD (hyperlipidemia) HTN (hypertension) Hx of compression fracture of spine Insomnia Osteoporosis Pancreatic cyst Surgical History H/O detached retina repair 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, ?CMV Hx of liver transplant S/P cataract extraction and insertion of intraocular lens S/P tubal ligation Family History Denies family history of Stroke Social History Smoking Status: Never smoker Second Hand Exposure: No; Hx Alcohol Use: No Hx Substance Use: No Preferred Language: Iraqi Communication Ability: Effective Visual Impairment: No Limitations Hearing Ability: Normal Former Hand Required: No Beliefs That Will Affect Care: None marital status: Single Current Living Situation: Family Current Living Situation Comment: lives with son current occupational status: retired Feels Safe at Home: Yes Assistive Devices: Glasses, Special Shoe and Walker Review of Systems Review of Systems: Unobtainable due to cognitive status Physical Exam Physical Exam: Constitutional: Petite, elderly, female, alert and answers questions and follows commands, vitals as above, NAD, sitting up in bed, Head: Normocephalic, Atraumatic Eyes: PERRL, conjunctivae normal, anicteric sclerae ENMT: external ear and nose normal, oropharynx normal Neck: trachea midline, no thyromegaly normal visual inspection Respiratory: normal respiratory effort, lungs clear to auscultation, no wheeze, rales, rhonchi. Normal insp/exp effort, no accessory muscle use Cardiovascular: RRR, 2/6 holosystolic precordial murmur best LUSB, no edema Vessels: no JVD or carotid bruit , left upper extremity AV fistula bruit present Chest: normal inspection of chest Abdomen: normal bowel sounds, soft, nontender, no hepatosplenomegaly Musculoskeletal: no cyanosis or clubbing, extremities motor strength 5/5, right upper extremity cast in place, left postop shoe in place, bilateral pedal pulse +2 Skin: no rashes, warm and dry normal turgor Neurologic: PERRL, EOMI, accommodation nl, no face palsy, no dysarthria CN's II-XI intact bilaterally and moves all extremities Psychiatric: A+O to self, and knew her daughter name, unaware of date/place, euthymic affect Lymphatic: no cervical or axillary lymphadenopathy : deferred Results & Data Results & Data ([facility]) Vital Signs (Past 12 Hours) Vital Signs Temp Pulse Resp BP Pulse Ox 05/31/20 16:01 81 17 94 05/31/20 16:00 83 12 181/76 H 95 05/31/20 15:58 85 20 182/76 H 96 02/15/21 15:41 85 20 96 05/31/20 15:40 85 18 180/85 H 97 05/31/20 15:30 80 14 95 05/31/20 15:20 88 19 97 05/31/20 15:10 87 17 96 05/31/20 15:00 85 23 98 05/31/20 14:50 83 22 97 05/31/20 14:45 79 14 203/81 H 96 05/31/20 14:40 90 20 98 05/31/20 14:31 88 16 05/31/20 14:30 83 20 209/88 H 96 05/31/20 14:20 86 17 96 05/31/20 14:15 85 14 211/102 H 97 05/31/20 14:10 90 16 98 05/31/20 14:01 90 17 97 05/31/20 14:00 82 16 229/94 H 97 05/31/20 13:58 82 15 224/96 H 97 05/31/20 13:45 88 15 222/92 H 97 05/31/20 13:41 92 H 19 97 05/31/20 13:39 90 14 221/98 H 96 05/31/20 13:30 94 H 33 H 95 05/31/20 13:29 89 19 98 05/31/20 13:22 84 18 227/90 H 98 05/31/20 13:07 36.5 C 87 20 227/90 H [address]: IMPRESSION: No acute intracranial findings CXR: IMPRESSION: 1. Cardiomegaly without acute process. 2. Acute fracture of the right lateral 10th rib is better seen on comparison study. No pneumothorax. Medications Administered Discontinued Medications Hydralazine HCl (Hydralazine Hcl 20 Mg/Ml Vial) 10 mg IV NOW STA Stop: 05/31/20 14:09 Last Admin: 05/31/20 14:42 Dose: 10 mg Documented by: [id number] Hydralazine HCl (Hydralazine Hcl 20 Mg/Ml Vial) 10 mg IV NOW STA Stop: 05/31/20 15:33 Last Admin: 05/31/20 15:57 Dose: 10 mg Documented by: [id number] Ceftriaxone Sodium (Rocephin) 1,000 mg in 50 mls @ 100 mls/hr IV NOW STA Stop: 05/31/20 15:48 Last Infusion: 05/31/20 16:07 Dose: 0 mls/hr Documented by: [id number] Admin: 05/31/20 15:36 Dose: 100 mls/hr Documented by: [id number] ECG Rate (beats per minute): 82 Rhythm: normal sinus Findings: + PAC and + prolonged QT (qtc 476ms) COVID-19 Results Results COVID-19 Adm Lab Results: RBC 3.91 M/uL (4.2-5.4) L 06/04/20 WBC 4.87 K/uL (4.8-10.8) 06/04/20 Hgb 10.5 g/dL (12.0-16.0) L 06/04/20 Hct 32.5 % (37-47) L 06/04/20 Plt Count 146 K/uL (130-400) 06/04/20 Neutrophils (%) (Auto) 67.9 % 06/01/20 Lymphocytes (%) (Auto) 20.6 % 06/01/20 Monocytes # (Auto) 0.56 K/uL (0.11-0.59) 06/01/20 Eosinophils # (Auto) 0.05 K/uL (0-0.5) 06/01/20 Immature Granulocyte % (Auto) 0.0 % 06/01/20 Neutrophils # (Auto) 3.78 K/uL (1.4-6.5) 06/01/20 Lymphocytes # (Auto) 1.15 K/uL (1.2-3.4) L 06/01/20 Monocytes # (Auto) 0.56 K/uL (0.11-0.59) 06/01/20 Eosinophils # (Auto) 0.05 K/uL (0-0.5) 06/01/20 Basophils # (Auto) 0.03 K/uL (0-0.2) 06/01/20 Immature Granulocyte # (Auto) 0.00 K/uL (0.00-0.02) 06/01/20 Na 132 mmol/L (136-145) L 06/04/20 K 4.5 mmol/L (3.5-5.1) 06/04/20 Cl 99 mmol/L (98-107) 06/04/20 CO2 25 mmol/L (21-32) 06/04/20 Anion Gap 8.0 (3-11) 06/04/20 BUN 65 mg/dl (7-18) H 06/04/20 Creatinine 5.47 mg/dl (0.6-1.2) H* 06/04/20 BUN/Creatinine Ratio 11.9 (10-20) 06/04/20 Glucose Level 149 mg/dl (70-99) H 06/04/20 Ca 8.7 mg/dl (8.5-10.1) 06/04/20 Phosphorus Level 4.1 mg/dl (2.5-4.9) 06/02/20 Total Bilirubin 0.7 mg/dl (0.2-1) 06/01/20 AST/SGOT 38 U/L (15-37) H 06/01/20 ALT/SGPT 25 U/L (12-78) 06/01/20 Alkaline Phosphatase 210 U/L (45-117) H 06/01/20 Total Protein 7.4 gm/dl (6.4-8.2) 06/01/20 Albumin 2.7 gm/dl (3.4-5.0) L 06/02/20 Globulin 4.4 gm/dl (2.5-4.0) H 06/01/20 Albumin/Globulin Ratio 0.7 (0.9-2) L 06/01/20 Troponin I < 0.015 ng/ml (0-0.045) 05/31/20 Procalcitonin 0.37 ng/ml (0-0.5) 05/31/20 SARS-CoV-2, RNA, NAAT NEGATIVE (NEGATIVE) 05/31/20 Chest X-Ray 05/31/20 Code Status & VTE Plan Code Status Full Code VTE Prophylaxis Plan VTE Prophylaxis will be ordered: Yes Supervising Physician Co-Signing Physician Notes Pt was seen and examined. Agreed with with Ingrid WATTS exam, assessment and plan. 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 History obtained from her daughter due to alter mental status. Daughter said pt was doing fine prior HD. When pt was brought to the ER, she was speaking in Iraqi. Daughter said that pt was able to speak Egyptian in her usual state at baseline. Pt fell and tripped 1 week ago after received her 1st dose of COVID 19 vaccine. She was seen in ED that same day and diagnosed with right fourth metacarpal fracture, left foot contusion and right lateral 10th rib fracture. She was prescribed oxycodone and daughter is unsure how many of these she had may have taken. Pt was seen later in her room her mental status was back to her baseline. She was complaint of pain. BP on admission was 227/90. CT head showed showed no acute intracranial finding. UA was positive for leukocytes and bacteria. Received Rocephin in the ER, will continue. Hydralazine IV was given in the ER. Will follow blood and urine cx. Continue monitor BP closely. Nephrology consult for dialysis. Will monitor closely in the ICU. MD Sana (1) Closed rib fracture Encounter type: initial encounter Laterality: right Rib fracture type: single rib Qualified Code(s): S22.31XA - Fracture of one rib, right side, initial encounter for closed fracture (2) Fx metacarpal Encounter type: initial encounter Fracture alignment: nondisplaced Fracture type: closed Laterality: right Metacarpal bone: fourth Metacarpal location: base Qualified Code(s): S62.344A - Nondisplaced fracture of base of fourth metacarpal bone, right hand, initial encounter for closed fracture
[2020-05-31] MEDS ORDERED: ACETAMINOPHEN 500 MG TAB PO STA (16:53)
[2020-05-31 17:17] LABS: Magnesium 2.6 mg/dl (1.8-2.4); Phosphorus 2.4 mg/dl (2.5-4.9)
[2020-05-31 17:31] LABS: Amphetamines+Metham, Urine Neg (Neg); Barbiturates, Urine Neg (Neg); Benzodiazepine, Urine Neg (Neg); Cocaine, Urine Neg (Neg); MDMA (Ecstacy), Urine Neg (Neg); Methadone, Urine Neg (Neg); Opiate, Urine Neg (Neg); Phencyclidine, Urine Neg (Neg)
[2020-05-31] MEDS ORDERED: [UNRECOGNIZED DRUG - OTHER] PO SCH (18:13)
[2020-05-31] MEDS ORDERED: NON-FORMULARY MEDICATION (Acetaminophen 650 mg Tablet) PO PRN ×2 (18:13)
[2020-05-31] MEDS ORDERED: hydrALAZINE HCL 20 MG/ML VIAL IV PRN (18:13)
[2020-05-31] MEDS ORDERED: POLYETHYLENE (MIRALAX) 17 GM PACK PO PRN (18:13)
[2020-05-31] MEDS ORDERED: ONDANSETRON INJ 2 MG/ML 2 ML VIAL IV PRN (18:13)
[2020-05-31] MEDS ORDERED: ACETAMINOPHEN 500 MG TAB PO PRN (18:13)
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
[2020-05-31] MEDS: FERROUS SULFATE 325 MG TAB PO SCH (21:22)
[2020-05-31] MEDS: CHOLECALCIFEROL 1,000 UNITS 25 MCG TAB PO SCH (21:22)
[2020-05-31] MEDS: hydrALAZINE 10 MG TAB PO SCH (21:23)
[2020-05-31] MEDS: CALCIUM 600MG + VIT D 400 IU TAB PO SCH (21:23)
[2020-05-31] MEDS: DICLOFENAC SOD 1% GEL 100 GM TUBE EXT SCH (21:23)
[2020-05-31] MEDS: HEPARIN SOD 5,000 UNIT/0.5 ML VIAL SQ SCH (21:24)
[2020-05-31] MEDS: LIDOCAINE 5% 1 PATCH TD SCH (21:24)
[2020-06-01] MEDS ORDERED: COUGH DROP (SUGAR FREE) LOZ 24 LOZ/1 BOX BUCCAL PRN (04:18)
[2020-06-01] MEDS: guaiFENesin SUGAR FREE 200 MG/10 ML UDC PO PRN (04:34)
[2020-06-01] MEDS: DICLOFENAC SOD 1% GEL 100 GM TUBE EXT SCH ×3 (05:31→21:44)
--- NOTE | 2020-06-01 06:36 | Electrocardiogram Report ---
Test Reason : Blood Pressure : / mmHG Vent. Rate : 082 BPM Atrial Rate : 082 BPM P-R Int : 152 ms QRS Dur : 100 ms QT Int : 408 ms P-R-T Axes : 025 -17 018 degrees QTc Int : 476 ms Sinus rhythm with Premature atrial complexes Minimal voltage criteria for LVH, may be normal variant Borderline ECG When compared with ECG of 04-FEB-2020 22:30, Premature atrial complexes are now Present Nonspecific T wave abnormality no longer evident in Anterior leads Confirmed by Brodie White ([id number]) on 06/01/2020 6:35:36 AM Referred By: REFERRED SELF Confirmed By:Brodie White
[2020-06-01 07:26] LABS: Albumin Globulin Ratio 0.7 (0.9-2); BUN Creatinine Ratio 10.4 (10-20); Bilirubin,Total 0.7 mg/dl (0.2-1); Calcium 8.6 mg/dl (8.5-10.1); Creatinine Clr Calc Pharmacy 5.8 ml/min; Est GFR (African American) 8.6; Est GFR (Non-African American) 7.5; Globulin 4.4 gm/dl (2.5-4.0); Magnesium 2.8 mg/dl (1.8-2.4); Phosphorus 4.1 mg/dl (2.5-4.9); Potassium 4.7 mmol/L (3.5-5.1); Total Protein 7.4 gm/dl (6.4-8.2)
[2020-06-01 08:00] LABS: Basophils # (auto) 0.03 K/uL (0-0.2); Basophils % (auto) 0.5 %; Eosinophils # (auto) 0.05 K/uL (0-0.5); Eosinophils % (auto) 0.9 %; Hematocrit (blood only) 32.8 % (37-47); Hemoglobin 10.5 g/dL (12.0-16.0); Lymphocytes # (auto) 1.15 K/uL (1.2-3.4); Lymphocytes % (auto) 20.6 %; Mean Corpuscular Hemoglobin 26.7 pg (25-34); Mean Corpuscular Volume 83.5 fL (80-100); Mean Platelet Volume 10.7 fL (7.4-10.4); Monocytes # (auto) 0.56 K/uL (0.11-0.59); Monocytes % (auto) 10.1 %; Neutrophils # (auto) 3.78 K/uL (1.4-6.5); Neutrophils % (auto) 67.9 %; Platelet Count 130 K/uL (130-400); RDW Coefficient of Variation 18.6 % (11.5-14.5); RDW Standard Deviation 57.5 fL (36.4-46.3); Red Blood Count 3.93 M/uL (4.2-5.4); White Blood Count 5.57 K/uL (4.8-10.8)
[2020-06-01] MEDS: cefTRIAXone SODIUM 1,000 MG in DEXTROSE 5% 50 ML IV SCH (08:02)
[2020-06-01] MEDS: NEPHROCAPS PO SCH (08:03)
[2020-06-01] MEDS: METOPROLOL TARTRATE 50 MG TAB PO SCH ×2 (08:03→21:43)
[2020-06-01] MEDS: CALCIUM 600MG + VIT D 400 IU TAB PO SCH ×2 (08:04→21:41)
[2020-06-01] MEDS: hydrALAZINE 10 MG TAB PO SCH (08:04)
[2020-06-01] MEDS: HEPARIN SOD 5,000 UNIT/0.5 ML VIAL SQ SCH ×2 (08:05→21:38)
[2020-06-01] MEDS ORDERED: ASCORBIC ACID 500 MG TAB PO SCH (09:00)
[2020-06-01] MEDS: hydrALAZINE HCL 20 MG/ML VIAL IV PRN ×2 (10:26→17:05)
[2020-06-01] MEDS: traMADol HCL 50 MG TABLET PO PRN (10:30)
--- NOTE | 2020-06-01 12:29 | Nephrology Progress Note ---
Date of Service June 01, 2020 Assessment & Plan (1) ESRD (end stage renal disease) on dialysis: MWF schedule. Next anticipated treatment tomorrow. Volume status is acceptable. Antihypertensive therapy adjusted for accelerated hypertension. Electrolytes controlled. Medications appropriate for kidney function. Renal diet. Daily renal MVI. (2) Acute encephalopathy: Etiology unclear. Infectious vs. medication vs. hypertension. Clinically improved. (3) Hypertensive emergency without congestive heart failure: Nebivolol switched to metoprolol during hospitalization. Hydralazine increased to 25 mg twice daily today.Volume status acceptable. Consider LA dihydropyridine CCB such as amlodipine in addition versus MICHELLE/ARB, if BP remains elevated. Some sympathetic component due to pain from rib fracture. I discussed the plan of care with Dr. Hood this AM. (4) Acute UTI: Current treatment includes ceftriaxone. Culture pending. (5) Anemia: Chronic, stable. Hgb >10. KALLIE therapy held. (6) Hx of liver transplant: Admission and Anticipated Discharge Date Admission Date: May 31, 2020 Subjective No acute events overnight. Diane continues to struggle with pain in her ribs and back but otherwise she feels well. Mental status improved. BP remains accelerated. No headache or focal neurologic findings. Review of Systems Review of Systems: All systems reviewed & are unremarkable except as noted in HPI & below Physical Exam Constitutional: well developed; no acute distress Eyes: no scleral abnormality and no corneal abnormality ENMT: Mouth: no oral mucosal abnormality and oral mucous membranes not dry Neck: normal visual inspection and trachea midline Respiratory: normal respiratory effort Auscultation: lungs clear to auscultation bilaterally Cardiovascular: Rate/Rhythm: regular rate Heart Sounds: normal S1 and normal S2 Extremities: + AV fistula; no edema Musculoskeletal: Extremities: no cyanosis and no clubbing Skin: normal turgor; no lesions Neurologic: Motor/Sensory: no tremor and no asterixis Psychiatric: Orientation: alert and oriented x 3 Results & Data ([facility]) Vital Signs (Past 12 Hours) Vital Signs Temp Pulse Pulse Resp BP BP Pulse Ox 06/01/20 11:47 36.5 C 73 19 196/92 H 95 06/01/20 10:24 71 218/87 H 06/01/20 08:55 225/109 H 06/01/20 07:46 36.9 C 83 16 224/86 H 98 06/01/20 07:00 82 02/16/21 04:11 37 C 76 20 179/64 H 93 Laboratory Results Laboratory Results - last 24 hr 05/31/20 05/31/20 05/31/20 13:13 13:13 13:13 WBC 4.83 RBC 3.92 L Hgb 10.6 L Hct 32.2 L MCV 82.1 MCH 27.0 MCHC 32.9 RDW Std Deviation 55.8 H RDW Coeff of Darci 18.5 H Plt Count 134 MPV 10.2 Immature Gran % (Auto) 0.2 Neut % (Auto) 56.6 Lymph % (Auto) 30.4 Reeves % (Auto) 11.6 Eos % (Auto) 1.0 Baso % (Auto) 0.2 Neut # (Auto) 2.73 Lymph # (Auto) 1.47 Reeves # (Auto) 0.56 Eos # (Auto) 0.05 Baso # (Auto) 0.01 Immature Gran # (Auto) 0.01 Sodium 139 Potassium 3.5 Chloride 102 Carbon Dioxide 26 Anion Gap 11.0 BUN 35 H Creatinine 3.58 H Est Cr Clr Drug Dosing 8.4 Est GFR ( Amer) 13.4 Est GFR (Non-Af Amer) 11.5 BUN/Creatinine Ratio 9.9 L Glucose 94 Calcium 9.3 Phosphorus 2.4 L Magnesium 2.6 H Total Bilirubin 0.7 AST 39 H ALT 27 Alkaline Phosphatase 230 H Ammonia Troponin I < 0.015 Total Protein 8.2 Albumin 3.3 L Globulin 4.9 H Albumin/Globulin Ratio 0.7 L Procalcitonin 0.37 TSH 1.050 Urine Color Urine Appearance Urine pH Ur Specific [place] Urine Protein Urine Glucose (UA) Urine Ketones Urine Blood Urine Nitrite Urine Bilirubin Urine Urobilinogen Ur Leukocyte Esterase Urine WBC (Auto) Urine RBC (Auto) U Hyaline Cast (Auto) U Epithel Cells (Auto) Urine Bacteria (Auto) Nasal Screen MRSA (PCR) Urine Opiates Screen Ur Methadone, Qual Urine Barbiturates Ur Phencyclidine (PCP) U Amphetamin/Meth Scrn MDMA (Ecstasy) Screen U Benzodiazepines Scrn Ur Cocaine Metabolite U Marijuana (THC) Screen COVID-19 Eval Order SARS-CoV-2, RNA, NAAT 05/31/20 05/31/20 05/31/20 14:35 14:35 14:54 WBC RBC Hgb Hct MCV MCH MCHC RDW Std Deviation RDW Coeff of Darci Plt Count MPV Immature Gran % (Auto) Neut % (Auto) Lymph % (Auto) [place] % (Auto) Eos % (Auto) Baso % (Auto) Neut # (Auto) Lymph # (Auto) Reeves # (Auto) Eos # (Auto) Baso # (Auto) Immature Gran # (Auto) Sodium Potassium Chloride Carbon Dioxide Anion Gap BUN Creatinine Est Cr Clr Drug Dosing Est GFR ( Amer) Est GFR (Non-Af Amer) BUN/Creatinine Ratio Glucose Calcium Phosphorus Magnesium Total Bilirubin AST ALT Alkaline Phosphatase Ammonia 30.2 Troponin I Total Protein Albumin Globulin Albumin/Globulin Ratio Procalcitonin TSH Urine Color Yellow Urine Appearance Cloudy A Urine pH 8.0 H Ur Specific [place] 1.011 Urine Protein 2+ H Urine Glucose (UA) Negative Urine Ketones Negative Urine Blood 2+ H Urine Nitrite Negative Urine Bilirubin Negative Urine Urobilinogen Negative Ur Leukocyte Esterase 2+ H Urine WBC (Auto) >30 H Urine RBC (Auto) 5-10 H U Hyaline Cast (Auto) 1-5 U Epithel Cells (Auto) 0-5 Urine Bacteria (Auto) 2+ H Nasal Screen MRSA (PCR) Urine Opiates Screen Neg Ur Methadone, Qual Neg Urine Barbiturates Neg Ur Phencyclidine (PCP) Neg U Amphetamin/Meth Scrn Neg MDMA (Ecstasy) Screen Neg U Benzodiazepines Scrn Neg Ur Cocaine Metabolite Neg U Marijuana (THC) Screen Neg COVID-19 Eval Order SARS-CoV-2, RNA, NAAT 05/31/20 05/31/20 05/31/20 15:40 15:40 Unknown WBC RBC Hgb Hct MCV MCH MCHC RDW Std Deviation RDW Coeff of Darci Plt Count MPV Immature Gran % (Auto) Neut % (Auto) Lymph % (Auto) [place] % (Auto) Eos % (Auto) Baso % (Auto) Neut # (Auto) Lymph # (Auto) [place]eves # (Auto) Eos # (Auto) Baso # (Auto) Immature Gran # (Auto) Sodium Potassium Chloride Carbon Dioxide Anion Gap BUN Creatinine Est Cr Clr Drug Dosing Est GFR ( Amer) Est GFR (Non-Af Amer) BUN/Creatinine Ratio Glucose Calcium Phosphorus Magnesium Total Bilirubin AST ALT Alkaline Phosphatase Ammonia Troponin I Total Protein Albumin Globulin Albumin/Globulin Ratio Procalcitonin TSH Urine Color Urine Appearance Urine pH Ur Specific [place] Urine Protein Urine Glucose (UA) Urine Ketones Urine Blood Urine Nitrite Urine Bilirubin Urine Urobilinogen Ur Leukocyte Esterase Urine WBC (Auto) Urine RBC (Auto) U Hyaline Cast (Auto) U Epithel Cells (Auto) Urine Bacteria (Auto) Nasal Screen MRSA (PCR) Negative Urine Opiates Screen Ur Methadone, Qual Urine Barbiturates Ur Phencyclidine (PCP) U Amphetamin/Meth Scrn MDMA (Ecstasy) Screen U Benzodiazepines Scrn Ur Cocaine Metabolite U Marijuana (THC) Screen COVID-19 Eval Order Covid19 IDNow atMVTC SARS-CoV-2, RNA, NAAT NEGATIVE 06/01/20 06/01/20 06:19 06:19 WBC 5.57 RBC 3.93 L Hgb 10.5 L Hct 32.8 L MCV 83.5 MCH 26.7 MCHC 32.0 RDW Std Deviation 57.5 H RDW Coeff of Darci 18.6 H Plt Count 130 MPV 10.7 H Immature Gran % (Auto) 0.0 Neut % (Auto) 67.9 Lymph % (Auto) 20.6 [place]eves % (Auto) 10.1 Eos % (Auto) 0.9 Baso % (Auto) 0.5 Neut # (Auto) 3.78 Lymph # (Auto) 1.15 L Reeves # (Auto) 0.56 Eos # (Auto) 0.05 Baso # (Auto) 0.03 Immature Gran # (Auto) 0.00 Sodium 140 Potassium 4.7 D Chloride 104 Carbon Dioxide 27 Anion Gap 9.0 BUN 53 H D Creatinine 5.14 H* D Est Cr Clr Drug Dosing 5.8 Est GFR ( Amer) 8.6 Est GFR (Non-Af Amer) 7.5 BUN/Creatinine Ratio 10.4 Glucose 76 Calcium 8.6 Phosphorus 4.1 D Magnesium 2.8 H Total Bilirubin 0.7 AST 38 H ALT 25 Alkaline Phosphatase 210 H Ammonia Troponin I Total Protein 7.4 Albumin 3.0 L Globulin 4.4 H Albumin/Globulin Ratio 0.7 L Procalcitonin TSH Urine Color Urine Appearance Urine pH Ur Specific [place] Urine Protein Urine Glucose (UA) Urine Ketones Urine Blood Urine Nitrite Urine Bilirubin Urine Urobilinogen Ur Leukocyte Esterase Urine WBC (Auto) Urine RBC (Auto) U Hyaline Cast (Auto) U Epithel Cells (Auto) Urine Bacteria (Auto) Nasal Screen MRSA (PCR) Urine Opiates Screen Ur Methadone, Qual Urine Barbiturates Ur Phencyclidine (PCP) U Amphetamin/Meth Scrn MDMA (Ecstasy) Screen U Benzodiazepines Scrn Ur Cocaine Metabolite U Marijuana (THC) Screen COVID-19 Eval Order SARS-CoV-2, RNA, NAAT PG Care Time/CCT Total # of Minutes Spent Total Time Spent with Patient: Total time spent is greater than 50% in coordination of care (as documented) at patient's floor/unit and/or counseling patient: Coding Level of Care Code 81919 Subseq Hosp Care Lvl 3 Diagnoses ESRD (end stage renal disease) on dialysis N18.6; Z99.2 Acute encephalopathy G93.40 Hypertensive emergency without congestive heart failure I16.1 Acute UTI N39.0 Anemia D64.9 Hx of liver transplant Z94.4
--- NOTE | 2020-06-01 15:53 | Hospitalist Progress Note ---
Date of Service June 01, 2020 Assessment & Plan (1) Acute encephalopathy: Was sent from dialysis center to the ER for confusion during HD Possible related to narcotic vs UTI vs hypertensive uregency Ct head showed no acute intracranial abnormality BP on admission was 227/90 on admission Clinically improves (2) Hypertensive emergency without congestive heart failure: BP on admission was 227/90 on admission Hydralazine increased to 25mg BID case discussed with nephrology that recommended amlodipine if no improvement in BP Continue monitor BP (3) Acute UTI: Urine cx grew gram negative bacilli continue IV rocephin Blood cx pending (4) Fx metacarpal: (5) Closed rib fracture: (6) Contusion of left foot: follows [facility], 2/2 to mechanical fall while at [facility] cast to RUE for 2-3 weeks, placed 2/12 incentive spirometry, lidocaine patch for rib fx Continue pain control with tramadol (7) Anemia: Mostly due to renal disease Hgb 10.5 Stable (8) ESRD (end stage renal disease) on dialysis: HD MWF Nephrology on board Next HD tomorrow (9) Hx of liver transplant: Hx of liver transplant x 2 for AIH, second transplant done for infection continue everolimus (10) DVT prophylaxis: SQ Heparin q12h Dispo: PCU, discharge planning ordered, will need [facility] for d/c ordered for HD center PCP: Dr. Stern FULL CODE Admission and Anticipated Discharge Date Admission Date: May 31, 2020 Subjective Pt was seen and examined for follow up of rib pain and elevate BP Lying in bed with no distress Pt said that she continue to have alot of pain She asking for IV pain medication Her blood pressure has been elevated Denies any fever, SOB. dizziness and palpitation Physical Exam Physical Exam: General- No acute distress Head- atraumatic Eyes- PERRL, EOMI, ENT- oropharynx clear Neck- supple, no JVD Lungs- clear to auscultation Heart- regular rhythm; no murmur Abdomen- normal bowel sounds, soft, nontender Extremities- no calf tenderness Neuro- alert, oriented x 3; PERRL, EOMI; no facial palsy; no dysarthria Skin- warm & dry Results & Data Results & Data ([facility]) Vital Signs (Past 12 Hours) Vital Signs Temp Pulse Pulse Resp BP BP BP 06/01/20 14:48 194/78 H 06/01/20 11:47 36.5 C 73 19 196/92 H 06/01/20 10:24 71 218/87 H 06/01/20 08:55 225/109 H 06/01/20 07:46 36.9 C 83 16 224/86 H 06/01/20 07:00 82 06/01/20 04:11 37 C 76 20 179/64 H Pulse Ox 06/01/20 14:48 06/01/20 11:47 95 06/01/20 10:24 06/01/20 08:55 06/01/20 07:46 98 06/01/20 07:00 06/01/20 04:11 93 (1) Fx metacarpal Encounter type: initial encounter Fracture alignment: nondisplaced Fracture type: closed Laterality: right Metacarpal bone: fourth Metacarpal location: base Qualified Code(s): S62.344A - Nondisplaced fracture of base of fourth metacarpal bone, right hand, initial encounter for closed fracture (2) Closed rib fracture Encounter type: initial encounter Laterality: right Rib fracture type: single rib Qualified Code(s): S22.31XA - Fracture of one rib, right side, initial encounter for closed fracture
[2020-06-01] MEDS ORDERED: LOSARTAN POTASSIUM 25 MG TAB PO ONE (20:45)
[2020-06-01] MEDS: LIDOCAINE 5% 1 PATCH TD SCH (21:35)
[2020-06-01] MEDS: hydrALAZINE HCL 25 MG TAB PO SCH (21:39)
[2020-06-01] MEDS: FERROUS SULFATE 325 MG TAB PO SCH (21:40)
[2020-06-01] MEDS: CHOLECALCIFEROL 1,000 UNITS 25 MCG TAB PO SCH (21:43)
[2020-06-01] MEDS: MELATONIN 3 MG TAB PO PRN (23:17)
[2020-06-02] MEDS: DICLOFENAC SOD 1% GEL 100 GM TUBE EXT SCH ×3 (06:20→21:10)
[2020-06-02 07:11] LABS: Albumin Level 2.7 gm/dl (3.4-5.0); BUN Creatinine Ratio 10.5 (10-20); Calcium 8.6 mg/dl (8.5-10.1); Creatinine Clr Calc Pharmacy 5.1 ml/min; Est GFR (African American) 7.3; Est GFR (Non-African American) 6.3; Phosphorus 4.1 mg/dl (2.5-4.9); Potassium 4.6 mmol/L (3.5-5.1)
[2020-06-02] MEDS: cefTRIAXone SODIUM 1,000 MG in DEXTROSE 5% 50 ML IV SCH (08:09)
[2020-06-02] MEDS: METOPROLOL TARTRATE 50 MG TAB PO SCH ×2 (08:10→21:17)
[2020-06-02] MEDS: NEPHROCAPS PO SCH (08:10)
[2020-06-02] MEDS: CALCIUM 600MG + VIT D 400 IU TAB PO SCH ×2 (08:10→21:06)
[2020-06-02] MEDS: hydrALAZINE HCL 25 MG TAB PO SCH ×2 (08:10→21:17)
[2020-06-02] MEDS: HEPARIN SOD 5,000 UNIT/0.5 ML VIAL SQ SCH ×2 (08:10→21:03)
--- NOTE | 2020-06-02 08:13 | Hospitalist Progress Note ---
Date of Service June 02, 2020 Assessment & Plan (1) Acute encephalopathy: Was sent from dialysis center to the ER for confusion during HD Possible related to narcotic vs UTI vs hypertensive urgency Ct head showed no acute intracranial abnormality BP on admission was 227/90 on admission Clinically improved (2) Hypertensive emergency without congestive heart failure: BP on admission was 227/90 on admission Home nebivolol switched to metoprolol 50 bid Hydralazine increased to 25mg BID Losartan started 25 mg daily case discussed with nephrology that recommended amlodipine if no improvement in BP Continue monitor BP (3) Acute UTI: Urine cx grew gram negative bacilli continue IV rocephin Blood cx pending (4) Fx metacarpal: (5) Closed rib fracture: (6) Contusion of left foot: follows [facility] ortho, 2/2 to mechanical fall while at [facility] [place] [facility] cast to RUE for 2-3 weeks, placed 2/12 incentive spirometry, lidocaine patch for rib fx Continue pain control with tramadol (7) Anemia: Mostly due to renal disease Hgb 10.5 Stable (8) ESRD (end stage renal disease) on dialysis: HD MWF Nephrology on board HD today (06/02/20) (9) Hx of liver transplant: Hx of liver transplant x 2 for AIH, 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 Stern FULL CODE Admission and Anticipated Discharge Date Admission Date: May 31, 2020 Subjective Pt was seen in follow up of encephalopathy, rib pain and elevated BP Currently on HD, in no distress Her blood pressure is now better controlled, nephrology following Denies any fever, SOB. dizziness and palpitation She would like to go home but is considering rehab. Discussed that rehab would be a better option and she is in agreement. Review of Systems Review of Systems: All systems reviewed & are unremarkable except as noted in HPI & below Constitutional: no fever and no chills Respiratory: no cough and no dyspnea Cardiovascular: no chest pain and no palpitations Gastrointestinal: no abdominal pain, no nausea and no vomiting Physical Exam Physical Exam: General- No acute distress Head- atraumatic Eyes- PERRL, EOMI, ENT- oropharynx clear Neck- supple, no JVD Lungs- clear to auscultation Heart- regular rhythm; no murmur Abdomen- normal bowel sounds, soft, nontender Extremities- no calf tenderness Neuro- alert, oriented x 3; PERRL, EOMI; no facial palsy; no dysarthria Skin- warm & dry Results & Data Results & Data ([facility]) Vital Signs (Past 12 Hours) Vital Signs Temp Pulse Pulse Pulse Resp BP BP 06/02/20 08:00 67 185/73 H 06/02/20 07:42 36.4 C L 71 20 200/68 H 06/02/20 04:21 36.7 C 68 16 181/70 H 06/02/20 01:56 79 06/02/20 00:00 36.6 C 67 17 174/69 H 06/01/20 20:25 36.7 C 78 16 199/70 H Pulse Ox 06/02/20 08:00 06/02/20 07:42 95 06/02/20 04:21 94 06/02/20 01:56 06/02/20 00:00 95 06/01/20 20:25 94 Laboratory Results 06/02/20 Range/Units 06:11 Sodium 138 (136-145) mmol/L Potassium 4.6 (3.5-5.1) mmol/L Chloride 104 (98-107) mmol/L Carbon Dioxide 24 (21-32) mmol/L Anion Gap 10.0 (3-11) BUN 62 H (7-18) mg/dl Creatinine 5.91 H* D (0.6-1.2) mg/dl Est Cr Clr Drug Dosing 5.1 ml/min Est GFR ( Amer) 7.3 Est GFR (Non-Af Amer) 6.3 BUN/Creatinine Ratio 10.5 (10-20) Glucose 92 (70-99) mg/dl Calcium 8.6 (8.5-10.1) mg/dl Phosphorus 4.1 (2.5-4.9) mg/dl Albumin 2.7 L (3.4-5.0) gm/dl Medications Administered Current Inpatient Medications Acetaminophen (Acetaminophen 500 Mg Tab) 500 mg PO Q8H PRN PRN Reason: pain Stop: 06/30/20 18:12 Ascorbic Acid (Ascorbic Acid 500 Mg Tab) 1 mg PO DAILY DAGOBERTO Stop: 07/01/20 08:59 Last Admin: 06/01/20 12:09 Dose: Not Given Documented by: Diclofenac Sodium (Diclofenac Sod 1% Gel 100 Gm Tube) 2 gm EXT Q8 DAGOBERTO Stop: 06/30/20 19:59 Last Admin: 06/02/20 06:20 Dose: 2 gm Documented by: Ferrous Sulfate (Ferrous Sulfate 325 Mg Tab) 325 mg PO HS [facility] Stop: 06/30/20 20:59 Last Admin: 06/01/20 21:40 Dose: 325 mg Documented by: Guaifenesin (Guaifenesin Sugar Free 200 Mg/10 Ml Udc) 200 mg PO Q6H PRN PRN Reason: Cough Stop: 07/01/20 04:17 Last Admin: 06/01/20 04:34 Dose: 200 mg Documented by: Heparin Sodium (Porcine) (Heparin Sod 5,000 Unit/0.5 Ml Vial) 5,000 units SQ Q12 DAGOBERTO Stop: 06/30/20 20:59 Last Admin: 06/01/20 21:38 Dose: 5,000 units Documented by: Hydralazine HCl (Hydralazine Hcl 20 Mg/Ml Vial) 10 mg IV Q6H PRN PRN Reason: SBP above 170 Stop: 07/01/20 09:14 Last Admin: 06/01/20 17:05 Dose: 10 mg Documented by: Hydralazine HCl (Hydralazine Hcl 25 Mg Tab) 25 mg PO BID DAGOBERTO Stop: 07/01/20 20:59 Last Admin: 06/01/20 21:39 Dose: 25 mg Documented by: Ceftriaxone Sodium 1,000 mg/ (Dextrose) 50 mls @ 100 mls/hr IV Q24H [facility]; Protocol Stop: 06/11/20 08:59 Last Infusion: 06/01/20 10:13 Dose: Infused Documented by: Lidocaine (Lidocaine 5% 1 Patch) 1 patch TD HS DAGOBERTO Stop: 06/30/20 19:59 Last Admin: 06/01/20 21:35 Dose: 1 patch Documented by: Melatonin (Melatonin 3 Mg Tab) 3 mg PO HS PRN PRN Reason: Sleep Stop: 07/01/20 22:51 Last Admin: 06/01/20 23:17 Dose: 3 mg Documented by: Menthol (Cough Drop (Sugar Free) Bebeto 24 Bebeto/1 Box) 1 bebeto BUCCAL Q1H PRN PRN Reason: Sore Throat Stop: 07/01/20 04:17 Last Admin: 06/01/20 04:34 Dose: 1 bebeto Documented by: Metoprolol Tartrate (Metoprolol Tartrate 50 Mg Tab) 50 mg PO BID DAGOBERTO Stop: 07/01/20 08:59 Last Admin: 06/01/20 21:43 Dose: 50 mg Documented by: Miscellaneous (Everolimus 0.5 Mg Tablet: Order Awaiting Action) 1 ea N/A QS DAGOBERTO Stop: 07/01/20 07:59 Last Admin: 06/02/20 01:52 Dose: Not Given Documented by: Miscellaneous (Remove Lidoderm Patch) 1 ea N/A DAILY@0900 [facility] Stop: 07/01/20 07:59 Last Admin: 06/01/20 09:01 Dose: 1 ea Documented by: Multivitamins/Minerals (Calcium 600mg + Vit D 400 Iu Tab) 1 tab PO BID [facility] Stop: 06/30/20 20:59 Last Admin: 06/01/20 21:41 Dose: 1 tab Documented by: Ondansetron HCl (Ondansetron Inj 2 Mg/Ml 2 Ml Vial) 4 mg IV Q6H PRN PRN Reason: Nausea Stop: 06/30/20 18:12 Polyethylene Glycol (Polyethylene (Miralax) 17 Gm Pack) 17 gm PO DAILY PRN PRN Reason: Constipation Stop: 06/30/20 18:12 Tramadol HCl (Tramadol Hcl 50 Mg Tablet) 50 mg PO Q6H PRN PRN Reason: Pain Stop: 06/30/20 19:26 Last Admin: 06/01/20 10:30 Dose: 50 mg Documented by: Vitamin B Complex/Folic Acid (Nephrocaps) 1 cap PO DAILY DAGOBERTO Stop: 07/01/20 08:59 Last Admin: 06/01/20 08:03 Dose: 1 cap Documented by: Vitamin D (Cholecalciferol 1,000 Units 25 Mcg Tab) 2,000 units PO HS [facility] Stop: 06/30/20 20:59 Last Admin: 06/01/20 21:43 Dose: 2,000 units Documented by: (1) Fx metacarpal Encounter type: initial encounter Fracture alignment: nondisplaced Fracture type: closed Laterality: right Metacarpal bone: fourth Metacarpal location: base Qualified Code(s): S62.344A - Nondisplaced fracture of base of fourth metacarpal bone, right hand, initial encounter for closed fracture (2) Closed rib fracture Encounter type: initial encounter Laterality: right Rib fracture type: single rib Qualified Code(s): S22.31XA - Fracture of one rib, right side, initial encounter for closed fracture
--- NOTE | 2020-06-02 10:22 | Nephrology Progress Note ---
Date of Service June 02, 2020 Assessment & Plan (1) ESRD (end stage renal disease) on dialysis: MWF schedule. Orders for HD today entered into EMR and reviewed with HD nruse. UF goal 1.5-2 kg to challenge EDW. Volume status appears acceptable. Antihypertensive therapy given this AM prior to HD due to accelerated HD readings. Electrolytes controlled. Medications appropriate for kidney function. Renal diet. Daily renal MVI. (2) Acute encephalopathy: Etiology unclear. Infectious vs. medication vs. hypertension. Clinically improved. (3) Hypertensive emergency without congestive heart failure: Nebivolol switched to metoprolol during hospitalization. Hydralazine increased to 25 mg twice daily yesterday. Losartan 25 mg given yesterday evening and this AM. Consider LA dihydropyridine CCB such as amlodipine in addition versus MICHELLE/ARB, if BP remains elevated. Some sympathetic component due to pain from rib fracture. I would also consider a component of pseudohypertension. Will monitor with UF during HD. (4) Acute UTI: Current treatment includes ceftriaxone. (5) Anemia: Chronic, stable. Hgb >10. KALLIE therapy held. (6) Hx of liver transplant: Admission and Anticipated Discharge Date Admission Date: May 31, 2020 Subjective No acute events overnight. Pain control reasonable. BP remains elevated. Diane reports a slight headache yesterday afternoon but denies any other symptoms of accelerated hypertension. She states that her BP is always elevated and has been for years. Her primary concern was that her ability to walk with a walker is limited due to pain in her side and arms. She would like to go home but is considering rehab. Review of Systems Review of Systems: All systems reviewed & are unremarkable except as noted in HPI & below Physical Exam Constitutional: well developed; no acute distress Eyes: no scleral abnormality and no corneal abnormality ENMT: Mouth: no oral mucosal abnormality and oral mucous membranes not dry Neck: normal visual inspection and trachea midline Respiratory: normal respiratory effort Auscultation: lungs clear to auscultation bilaterally Cardiovascular: Rate/Rhythm: regular rate Heart Sounds: normal S1 and normal S2 Extremities: + AV fistula; no edema Musculoskeletal: Extremities: no cyanosis and no clubbing Skin: normal turgor; no lesions Neurologic: Motor/Sensory: no tremor and no asterixis Psychiatric: Orientation: alert and oriented x 3 Results & Data ([facility]) Vital Signs (Past 12 Hours) Vital Signs Temp Pulse Pulse Pulse Resp BP BP 06/02/20 08:00 67 185/73 H 06/02/20 07:42 36.4 C L 71 20 200/68 H 06/02/20 04:21 36.7 C 68 16 181/70 H 06/02/20 01:56 79 06/02/20 00:00 36.6 C 67 17 174/69 H Pulse Ox 06/02/20 08:00 06/02/20 07:42 95 06/02/20 04:21 94 06/02/20 01:56 06/02/20 00:00 95 Laboratory Results Laboratory Results - last 24 hr 06/02/20 06:11 Sodium 138 Potassium 4.6 Chloride 104 Carbon Dioxide 24 Anion Gap 10.0 BUN 62 H Creatinine 5.91 H* D Est Cr Clr Drug Dosing 5.1 Est GFR ( Amer) 7.3 Est GFR (Non-Af Amer) 6.3 BUN/Creatinine Ratio 10.5 Glucose 92 Calcium 8.6 Phosphorus 4.1 Albumin 2.7 L PG Care Time/CCT Total # of Minutes Spent Total Time Spent with Patient: Total time spent is greater than 50% in coordination of care (as documented) at patient's floor/unit and/or counseling patient: Coding Level of Care Code 61091 Subseq Hosp Care Lvl 3 Diagnoses ESRD (end stage renal disease) on dialysis N18.6; Z99.2 Acute encephalopathy G93.40 Hypertensive emergency without congestive heart failure I16.1 Acute UTI N39.0 Anemia D64.9 Hx of liver transplant Z94.4
[2020-06-02] MEDS: ASCORBIC ACID 500 MG TAB PO SCH (10:34)
[2020-06-02] MEDS: LOSARTAN POTASSIUM 25 MG TAB PO SCH (10:34)
[2020-06-02] MEDS: EVEROLIMUS 0.5 MG TABLET PO SCH ×2 (10:36→21:14)
[2020-06-02] MEDS: guaiFENesin SUGAR FREE 200 MG/10 ML UDC PO PRN (21:03)
[2020-06-02] MEDS: LIDOCAINE 5% 1 PATCH TD SCH (21:05)
[2020-06-02] MEDS: FERROUS SULFATE 325 MG TAB PO SCH (21:07)
[2020-06-02] MEDS: CHOLECALCIFEROL 1,000 UNITS 25 MCG TAB PO SCH (21:08)
[2020-06-02] MEDS: MELATONIN 3 MG TAB PO PRN (22:54)
[2020-06-03] MEDS: LIDOCAINE 5% 1 PATCH TD SCH ×2 (00:03→20:52)
[2020-06-03] MEDS: DICLOFENAC SOD 1% GEL 100 GM TUBE EXT SCH ×3 (06:16→20:53)
--- NOTE | 2020-06-03 07:56 | Hospitalist Progress Note ---
Date of Service June 03, 2020 Assessment & Plan (1) Acute encephalopathy: Was sent from dialysis center to the ER for confusion during HD Possible related to narcotic vs UTI vs hypertensive urgency Ct head showed no acute intracranial abnormality BP on admission was 227/90 on admission Clinically improved/ encephalopathy resolved (2) Hypertensive emergency without congestive heart failure: BP on admission was 227/90 on admission Home nebivolol switched to metoprolol 50 bid Hydralazine increased to 25mg BID Losartan started 25 mg daily case discussed with nephrology that recommended amlodipine if no improvement in BP Continue monitor BP (3) Acute UTI: Urine cx grew Klebsiella pneum. 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 Stern FULL CODE Admission and Anticipated Discharge Date Admission Date: May 31, 2020 Subjective Pt was seen in follow up of encephalopathy, rib pain and elevated BP Had HD yesterday Currently in no distress Her blood pressure is now better controlled, nephrology following Denies any fever, SOB. dizziness and palpitation She would like to go home but was considering rehab. Discussed that rehab would be a better option and she was in agreement. However changed her mind again and would like to go home. Had a thorough discussion with the pt again about her ris k of falling but pt prefers to be discharged home. She did better with therapy today though and so hopefully she will be able to mange at home. Review of Systems Review of Systems: All systems reviewed & are unremarkable except as noted in HPI & below Constitutional: no fever and no chills Respiratory: no cough and no dyspnea Cardiovascular: no chest pain and no palpitations Gastrointestinal: no abdominal pain, no nausea and no vomiting Physical Exam Physical Exam: General- No acute distress Head- atraumatic Eyes- PERRL, EOMI, ENT- oropharynx clear Neck- supple, no JVD Lungs- clear to auscultation Heart- regular rhythm; no murmur Abdomen- normal bowel sounds, soft, nontender Extremities- no calf tenderness Neuro- alert, oriented x 3; PERRL, EOMI; no facial palsy; no dysarthria Skin- warm & dry Results & Data Results & Data ([facility]) Vital Signs (Past 12 Hours) Vital Signs Temp Pulse Pulse Resp BP BP Pulse Ox 06/03/20 04:09 36.7 C 68 16 137/53 L 95 06/03/20 02:08 69 06/02/20 23:39 36.7 C 66 18 150/63 H 95 06/02/20 21:16 78 185/72 H 96 Medications Administered Current Inpatient Medications Acetaminophen (Acetaminophen 500 Mg Tab) 500 mg PO Q8H PRN PRN Reason: pain Stop: 06/30/20 18:12 Ascorbic Acid (Ascorbic Acid 500 Mg Tab) 1,000 mg PO DAILY DAGOBERTO Stop: 07/02/20 08:59 Last Admin: 06/02/20 10:34 Dose: 1,000 mg Documented by: Diclofenac Sodium (Diclofenac Sod 1% Gel 100 Gm Tube) 2 gm EXT Q8 DAGOBERTO Stop: 06/30/20 19:59 Last Admin: 06/03/20 06:16 Dose: 2 gm Documented by: Everolimus (Everolimus 0.5 Mg Tablet) 2 ea PO BID DAGOBERTO Stop: 07/02/20 08:59 Last Admin: 06/02/20 21:14 Dose: 2 ea Documented by: Ferrous Sulfate (Ferrous Sulfate 325 Mg Tab) 325 mg PO HS DAGOBERTO Stop: 06/30/20 20:59 Last Admin: 06/02/20 21:07 Dose: 325 mg Documented by: Guaifenesin (Guaifenesin Sugar Free 200 Mg/10 Ml Udc) 200 mg PO Q6H PRN PRN Reason: Cough Stop: 07/01/20 04:17 Last Admin: 06/02/20 21:03 Dose: 200 mg Documented by: Heparin Sodium (Porcine) (Heparin Sod 5,000 Unit/0.5 Ml Vial) 5,000 units SQ Q12 [facility] Stop: 06/30/20 20:59 Last Admin: 06/02/20 21:03 Dose: 5,000 units Documented by: Hydralazine HCl (Hydralazine Hcl 20 Mg/Ml Vial) 10 mg IV Q6H PRN PRN Reason: SBP above 170 Stop: 07/01/20 09:14 Last Admin: 06/01/20 17:05 Dose: 10 mg Documented by: Hydralazine HCl (Hydralazine Hcl 25 Mg Tab) 25 mg PO BID [facility] Stop: 07/01/20 20:59 Last Admin: 06/02/20 21:17 Dose: 25 mg Documented by: Ceftriaxone Sodium 1,000 mg/ (Dextrose) 50 mls @ 100 mls/hr IV Q24H [facility]; Protocol Stop: 06/11/20 08:59 Last Infusion: 06/02/20 09:04 Dose: Infused Documented by: Lidocaine (Lidocaine 5% 1 Patch) 1 patch TD HS [facility] Stop: 06/30/20 19:59 Last Admin: 06/03/20 00:03 Dose: Not Given Documented by: Losartan Potassium (Losartan Potassium 25 Mg Tab) 25 mg PO QAM [facility] Stop: 07/02/20 09:14 Last Admin: 06/02/20 10:34 Dose: 25 mg Documented by: Melatonin (Melatonin 3 Mg Tab) 3 mg PO HS PRN PRN Reason: Sleep Stop: 07/01/20 22:51 Last Admin: 06/02/20 22:54 Dose: 3 mg Documented by: Menthol (Cough Drop (Sugar Free) Bebeto 24 Bebeto/1 Box) 1 bebeto BUCCAL Q1H PRN PRN Reason: Sore Throat Stop: 07/01/20 04:17 Last Admin: 06/01/20 04:34 Dose: 1 bebeto Documented by: Metoprolol Tartrate (Metoprolol Tartrate 50 Mg Tab) 50 mg PO BID [facility] Stop: 07/01/20 08:59 Last Admin: 06/02/20 21:17 Dose: 50 mg Documented by: Miscellaneous (Remove Lidoderm Patch) 1 ea N/A DAILY@0900 [facility] Stop: 07/01/20 07:59 Last Admin: 06/02/20 08:09 Dose: Not Given Documented by: Multivitamins/Minerals (Calcium 600mg + Vit D 400 Iu Tab) 1 tab PO BID DAGOBERTO Stop: 06/30/20 20:59 Last Admin: 06/02/20 21:06 Dose: 1 tab Documented by: Ondansetron HCl (Ondansetron Inj 2 Mg/Ml 2 Ml Vial) 4 mg IV Q6H PRN PRN Reason: Nausea Stop: 06/30/20 18:12 Polyethylene Glycol (Polyethylene (Miralax) 17 Gm Pack) 17 gm PO DAILY PRN PRN Reason: Constipation Stop: 06/30/20 18:12 Tramadol HCl (Tramadol Hcl 50 Mg Tablet) 50 mg PO Q6H PRN PRN Reason: Pain Stop: 06/30/20 19:26 Last Admin: 06/01/20 10:30 Dose: 50 mg Documented by: Vitamin B Complex/Folic Acid (Nephrocaps) 1 cap PO DAILY DAGOBERTO Stop: 07/01/20 08:59 Last Admin: 06/02/20 08:10 Dose: 1 cap Documented by: Vitamin D (Cholecalciferol 1,000 Units 25 Mcg Tab) 2,000 units PO HS DAGOBERTO Stop: 06/30/20 20:59 Last Admin: 06/02/20 21:08 Dose: 2,000 units Documented by: (1) Closed rib fracture Encounter type: initial encounter Laterality: right Rib fracture type: single rib Qualified Code(s): S22.31XA - Fracture of one rib, right side, initial encounter for closed fracture (2) Fx metacarpal Encounter type: initial encounter Fracture alignment: nondisplaced Fracture type: closed Laterality: right Metacarpal bone: fourth Metacarpal location: base Qualified Code(s): S62.344A - Nondisplaced fracture of base of fourth metacarpal bone, right hand, initial encounter for closed fracture
[2020-06-03] MEDS: cefTRIAXone SODIUM 1,000 MG in DEXTROSE 5% 50 ML IV SCH (08:20)
[2020-06-03] MEDS: METOPROLOL TARTRATE 50 MG TAB PO SCH ×2 (08:21→20:53)
[2020-06-03] MEDS: NEPHROCAPS PO SCH (08:21)
[2020-06-03] MEDS: ASCORBIC ACID 500 MG TAB PO SCH (08:21)
[2020-06-03] MEDS: hydrALAZINE HCL 25 MG TAB PO SCH ×2 (08:21→20:51)
[2020-06-03] MEDS: CALCIUM 600MG + VIT D 400 IU TAB PO SCH ×2 (08:21→20:50)
[2020-06-03] MEDS: HEPARIN SOD 5,000 UNIT/0.5 ML VIAL SQ SCH ×2 (08:22→20:52)
[2020-06-03] MEDS: EVEROLIMUS 0.5 MG TABLET PO SCH ×2 (08:22→20:54)
[2020-06-03] MEDS: LOSARTAN POTASSIUM 25 MG TAB PO SCH (08:22)
--- NOTE | 2020-06-03 11:47 | Nephrology Progress Note ---
Date of Service June 03, 2020 Assessment & Plan (1) ESRD (end stage renal disease) on dialysis: MWF schedule. Volume status appears acceptable. BP significantly improved. Electrolytes controlled. Medications appropriate for kidney function. Renal diet. Daily renal MVI. Resume outpatient HD schedule at [facility] post discharge. (2) Acute encephalopathy: Clinically improved. UTI s hypertensive encephalopathy working dx. (3) Hypertensive emergency without congestive heart failure: Nebivolol switched to metoprolol during hospitalization. Hydralazine increased to 25 mg twice daily. Losartan 25 mg added. Some sympathetic component due to pain from rib fracture. Suggest continuing ARB post discharge. (4) Acute UTI: (5) Anemia: Chronic, stable. Hgb >10. KALLIE therapy held. (6) Hx of liver transplant: Admission and Anticipated Discharge Date Admission Date: May 31, 2020 Subjective No acute events overnight. HD completed yesterday without complications. Net UF 1.5 L. BP improved. Review of Systems Review of Systems: All systems reviewed & are unremarkable except as noted in HPI & below Physical Exam Constitutional: well developed; no acute distress Eyes: no scleral abnormality and no corneal abnormality ENMT: Mouth: no oral mucosal abnormality and oral mucous membranes not dry Neck: normal visual inspection and trachea midline Respiratory: normal respiratory effort Auscultation: lungs clear to auscul tation bilaterally Cardiovascular: Rate/Rhythm: regular rate Heart Sounds: normal S1 and normal S2 Extremities: + AV fistula; no edema Musculoskeletal: Extremities: no cyanosis and no clubbing Skin: normal turgor; no lesions Neurologic: Motor/Sensory: no tremor and no asterixis Psychiatric: Orientation: alert and oriented x 3 Results & Data ([facility]) Vital Signs (Past 12 Hours) Vital Signs Temp Pulse Pulse Resp BP Pulse Ox 06/03/20 08:00 71 06/03/20 04:09 36.7 C 68 16 137/53 L 95 06/03/20 02:08 69 PG Care Time/CCT Total # of Minutes Spent Total Time Spent with Patient: Total time spent is greater than 50% in co ordination of care (as documented) at patient's floor/unit and/or counseling patient: Coding Level of Care Code 49408 Subseq Hosp Care Lvl 3 Diagnoses ESRD (end stage renal disease) on dialysis N18.6; Z99.2 Acute encephalopathy G93.40 Hypertensive emergency without congestive heart failure I16.1 Acute UTI N39.0 Anemia D64.9 Hx of liver transplant Z94.4
[2020-06-03] MEDS: FERROUS SULFATE 325 MG TAB PO SCH (20:51)
[2020-06-03] MEDS: CHOLECALCIFEROL 1,000 UNITS 25 MCG TAB PO SCH (20:54)
[2020-06-03] MEDS: MELATONIN 3 MG TAB PO PRN (23:13)
[2020-06-04] MEDS: hydrALAZINE HCL 20 MG/ML VIAL IV PRN (00:04)
[2020-06-04] MEDS: guaiFENesin SUGAR FREE 200 MG/10 ML UDC PO PRN (00:04)
[2020-06-04] MEDS: DICLOFENAC SOD 1% GEL 100 GM TUBE EXT SCH ×3 (06:30→21:08)
--- NOTE | 2020-06-04 07:34 | Hospitalist Progress Note ---
Date of Service June 04, 2020 Assessment & Plan (1) Acute encephalopathy: Was sent from dialysis center to the ER for confusion during HD Possible related to narcotic vs UTI vs hypertensive urgency Ct head showed no acute intracranial abnormality BP on admission was 227/90 on admission Clinically improved/ encephalopathy resolved (2) Hypertensive emergency without congestive heart failure: BP on admission was 227/90 on admission Home nebivolol switched to metoprolol 50 bid Hydralazine increased to 25mg BID Losartan started 25 mg daily case discussed with nephrology that recommended amlodipine if no improvement in BP Continue monitor BP (3) Acute UTI: Urine cx grew Klebsiella pneum. 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 Stern FULL CODE Admission and Anticipated Discharge Date Admission Date: May 31, 2020 Subjective Pt was seen in follow up of encephalopathy, rib pain and elevated BP Had HD today Currently in no distress but reports ribcage pain (rib fx) Her blood pressure is now better controlled, nephrology following Denies any fever, SOB. dizziness and palpitation [facility] but changed her mind and would like to be dc'ed home tomorrow. Had a thorough discussion with the pt again about her risk of falling but pt prefers to be discharged home. She did better with therapy though and so hopefully she will be able to mange at home. Review of Systems Review of Systems: All systems reviewed & are unremarkable except as noted in HPI & below Constitutional: + weakness (generalized); no fever and no chills Respiratory: no cough and no dyspnea Cardiovascular: no chest pain and no palpitations Gastrointestinal: no abdominal pain, no nausea and no vomiting Physical Exam Physical Exam: General- No acute distress Head- atraumatic Eyes- PERRL, EOMI, ENT- oropharynx clear Neck- supple, no JVD Lungs- clear to auscultation Heart- regular rhythm; no murmur Abdomen- normal bowel sounds, soft, nontender Extremities- no calf tenderness Neuro- alert, oriented x 3; PERRL, EOMI; no facial palsy; no dysarthria Skin- warm & dry Results & Data Results & Data ([facility]) Vital Signs (Past 12 Hours) Vital Signs Temp Pulse Pulse Resp BP Pulse Ox 06/04/20 03:01 36.5 C 72 17 168/72 H 94 06/03/20 23:32 36.5 C 76 18 182/73 H 96 06/03/20 23:29 67 06/03/20 19:39 36.5 C 70 16 148/64 H 98 Laboratory Results 06/04/20 06/04/20 Range/Units 09:07 09:07 WBC 4.87 (4.8-10.8) K/uL RBC 3.91 L (4.2-5.4) M/uL Hgb 10.5 L (12.0-16.0) g/dL Hct 32.5 L (37-47) % MCV 83.1 (80-100) fL MCH 26.9 (25-34) pg MCHC 32.3 (32-36) g/dL RDW Std Deviation 55.8 H (36.4-46.3) fL RDW Coeff of Darci 18.2 H (11.5-14.5) % Plt Count 146 (130-400) K/uL MPV 9.9 (7.4-10.4) fL Sodium 132 L (136-145) mmol/L Potassium 4.5 (3.5-5.1) mmol/L Chloride 99 (98-107) mmol/L Carbon Dioxide 25 (21-32) mmol/L Anion Gap 8.0 (3-11) BUN 65 H (7-18) mg/dl Creatinine 5.47 H* (0.6-1.2) mg/dl Est Cr Clr Drug Dosing 5.5 ml/min Est GFR ( Amer) 8.0 Est GFR (Non-Af Amer) 6.9 BUN/Creatinine Ratio 11.9 (10-20) Glucose 149 H (70-99) mg/dl Calcium 8.7 (8.5-10.1) mg/dl Medications Administered Current Inpatient Medications Acetaminophen (Acetaminophen 500 Mg Tab) 500 mg PO Q8H PRN PRN Reason: pain Stop: 06/30/20 18:12 Ascorbic Acid (Ascorbic Acid 500 Mg Tab) 1,000 mg PO DAILY DAGOBERTO Stop: 07/02/20 08:59 Last Admin: 06/03/20 08:21 Dose: 1,000 mg Documented by: Diclofenac Sodium (Diclofenac Sod 1% Gel 100 Gm Tube) 2 gm EXT Q8 DAGOBERTO Stop: 06/30/20 19:59 Last Admin: 06/04/20 06:30 Dose: Not Given Documented by: Everolimus (Everolimus 0.5 Mg Tablet) 2 ea PO BID [facility] Stop: 07/02/20 08:59 Last Admin: 06/03/20 20:54 Dose: 2 ea Documented by: Ferrous Sulfate (Ferrous Sulfate 325 Mg Tab) 325 mg PO HS [facility] Stop: 06/30/20 20:59 Last Admin: 06/03/20 20:51 Dose: 325 mg Documented by: Guaifenesin (Guaifenesin Sugar Free 200 Mg/10 Ml Udc) 200 mg PO Q6H PRN PRN Reason: Cough Stop: 07/01/20 04:17 Last Admin: 06/04/20 00:04 Dose: 200 mg Documented by: Heparin Sodium (Porcine) (Heparin Sod 5,000 Unit/0.5 Ml Vial) 5,000 units SQ Q12 DAGOBERTO Stop: 06/30/20 20:59 Last Admin: 06/03/20 20:52 Dose: Not Given Documented by: Hydralazine HCl (Hydralazine Hcl 20 Mg/Ml Vial) 10 mg IV Q6H PRN PRN Reason: SBP above 170 Stop: 07/01/20 09:14 Last Admin: 06/04/20 00:04 Dose: 10 mg Documented by: Hydralazine HCl (Hydralazine Hcl 25 Mg Tab) 25 mg PO BID [facility] Stop: 07/01/20 20:59 Last Admin: 06/03/20 20:51 Dose: 25 mg Documented by: Ceftriaxone Sodium 1,000 mg/ (Dextrose) 50 mls @ 100 mls/hr IV Q24H [facility]; Protocol Stop: 06/11/20 08:59 Last Infusion: 06/03/20 08:59 Dose: Infused Documented by: Lidocaine (Lidocaine 5% 1 Patch) 1 patch TD HS [facility] Stop: 06/30/20 19:59 Last Admin: 06/03/20 20:52 Dose: Not Given Documented by: Losartan Potassium (Losartan Potassium 25 Mg Tab) 25 mg PO QAM [facility] Stop: 07/02/20 09:14 Last Admin: 06/03/20 08:22 Dose: 25 mg Documented by: Melatonin (Melatonin 3 Mg Tab) 3 mg PO HS PRN PRN Reason: Sleep Stop: 07/01/20 22:51 Last Admin: 06/03/20 23:13 Dose: 3 mg Documented by: Menthol (Cough Drop (Sugar Free) Bebeto 24 Bebeto/1 Box) 1 bebeto BUCCAL Q1H PRN PRN Reason: Sore Throat Stop: 07/01/20 04:17 Last Admin: 06/01/20 04:34 Dose: 1 bebeto Documented by: Metoprolol Tartrate (Metoprolol Tartrate 50 Mg Tab) 50 mg PO BID [facility] Stop: 07/01/20 08:59 Last Admin: 06/03/20 20:53 Dose: 50 mg Documented by: Miscellaneous (Remove Lidoderm Patch) 1 ea N/A DAILY@0900 [facility] Stop: 07/01/20 07:59 Last Admin: 06/03/20 08:22 Dose: Not Given Documented by: Multivitamins/Minerals (Calcium 600mg + Vit D 400 Iu Tab) 1 tab PO BID [facility] Stop: 06/30/20 20:59 Last Admin: 06/03/20 20:50 Dose: 1 tab Documented by: Ondansetron HCl (Ondansetron Inj 2 Mg/Ml 2 Ml Vial) 4 mg IV Q6H PRN PRN Reason: Nausea Stop: 06/30/20 18:12 Polyethylene Glycol (Polyethylene (Miralax) 17 Gm Pack) 17 gm PO DAILY PRN PRN Reason: Constipation Stop: 06/30/20 18:12 Tramadol HCl (Tramadol Hcl 50 Mg Tablet) 50 mg PO Q6H PRN PRN Reason: Pain Stop: 06/30/20 19:26 Last Admin: 06/01/20 10:30 Dose: 50 mg Documented by: Vitamin B Complex/Folic Acid (Nephrocaps) 1 cap PO DAILY [facility] Stop: 07/01/20 08:59 Last Admin: 06/03/20 08:21 Dose: 1 cap Documented by: Vitamin D (Cholecalciferol 1,000 Units 25 Mcg Tab) 2,000 units PO HS [facility] Stop: 06/30/20 20:59 Last Admin: 06/03/20 20:54 Dose: 2,000 units Documented by: (1) Closed rib fracture Encounter type: initial encounter Laterality: right Rib fracture type: single rib Qualified Code(s): S22.31XA - Fracture of one rib, right side, initial encounter for closed fracture (2) Fx metacarpal Encounter type: initial encounter Fracture alignment: nondisplaced Fracture type: closed Laterality: right Metacarpal bone: fourth Metacarpal location: base Qualified Code(s): S62.344A - Nondisplaced fracture of base of fourth metacarpal bone, right hand, initial encounter for closed fracture
[2020-06-04] MEDS: LOSARTAN POTASSIUM 25 MG TAB PO SCH (08:20)
[2020-06-04] MEDS: METOPROLOL TARTRATE 50 MG TAB PO SCH ×2 (08:20→23:34)
[2020-06-04] MEDS: hydrALAZINE HCL 25 MG TAB PO SCH (08:20)
[2020-06-04] MEDS: HEPARIN SOD 5,000 UNIT/0.5 ML VIAL SQ SCH ×2 (08:20→21:08)
[2020-06-04] MEDS: cefTRIAXone SODIUM 1,000 MG in DEXTROSE 5% 50 ML IV SCH (08:28)
[2020-06-04] MEDS: EVEROLIMUS 0.5 MG TABLET PO SCH ×2 (08:32→21:10)
[2020-06-04] MEDS: ASCORBIC ACID 500 MG TAB PO SCH (08:32)
[2020-06-04] MEDS: NEPHROCAPS PO SCH (08:32)
[2020-06-04] MEDS: CALCIUM 600MG + VIT D 400 IU TAB PO SCH ×2 (08:33→21:10)
[2020-06-04 09:28] LABS: Hematocrit (blood only) 32.5 % (37-47); Hemoglobin 10.5 g/dL (12.0-16.0); Mean Corpuscular Hemoglobin 26.9 pg (25-34); Mean Corpuscular Hgb Conc 32.3 g/dL (32-36); Mean Corpuscular Volume 83.1 fL (80-100); Mean Platelet Volume 9.9 fL (7.4-10.4); Platelet Count 146 K/uL (130-400); RDW Coefficient of Variation 18.2 % (11.5-14.5); RDW Standard Deviation 55.8 fL (36.4-46.3); Red Blood Count 3.91 M/uL (4.2-5.4); White Blood Count 4.87 K/uL (4.8-10.8)
[2020-06-04 10:15] LABS: BUN Creatinine Ratio 11.9 (10-20); Calcium 8.7 mg/dl (8.5-10.1); Creatinine Clr Calc Pharmacy 5.5 ml/min; Est GFR (Non-African American) 6.9; Potassium 4.5 mmol/L (3.5-5.1)
[2020-06-04] MEDS ORDERED: hydrALAZINE HCL 25 MG TAB PO PRN (12:39)
[2020-06-04] MEDS: LIDOCAINE 5% 1 PATCH TD SCH ×2 (13:25→21:09)
--- NOTE | 2020-06-04 13:57 | Nephrology Progress Note ---
Date of Service June 04, 2020 Assessment & Plan (1) ESRD (end stage renal disease) on dialysis: MWF schedule. Orders for HD today entered into EMR and reviewed with HD nurse. BP significantly improved. Electrolytes controlled. Medications appropriate for kidney function. Renal diet. Daily renal MVI. Resume outpatient HD schedule at [facility] post discharge. (2) Acute encephalopathy: Clinically improved. UTI s hypertensive encephalopathy working dx. (3) Hypertensive emergency without congestive heart failure: Nebivolol switched to metoprolol during hospitalization. Hydralazine incr eased to 25 mg twice daily. Losartan 25 mg added. Some sympathetic component due to pain from rib fracture. (4) Acute UTI: Current treatment includes ceftriaxone. (5) Anemia: Chronic, stable. Hgb >10. KALLIE therapy held. (6) Hx of liver transplant: Admission and Anticipated Discharge Date Admission Date: May 31, 2020 Subjective No acute events overnight. Diane was seen and evaluated during hemodialysis this AM. Tolerating treatment well. No complaints. BP controlled. Review of Systems Constitutional: no weight loss, no weight gain and no problem reported Eyes: no problem reported Ear, Nose, Mouth, Throat: no problem reported Respiratory: no problem reported Cardiovascular: no problem reported Gastrointestinal: no problem reported Musculoskeletal: no problem reported Integumentary: no problem reported Neurologic: no problem reported Psychiatric: no problem reported Endocrine: no problem reported Hematologic / Lymphatic: no problem reported Physical Exam Constitutional: well developed; no acute distress Eyes: no scleral abnormality and no corneal abnormality ENMT: Mouth: no oral mucosal abnormality and oral mucous membranes not dry Neck: normal visual inspection and trachea midline Respiratory: normal respiratory effort Auscultation: lungs clear to auscultation bilaterally Cardiovascular: Rate/Rhythm: regular rate Heart Sounds: normal S1 and normal S2 Extremities: + AV fistula; no edema Musculoskeletal: Extremities: no cyanosis and no clubbing Skin: normal turgor; no lesions Neurologic: Motor/Sensory: no tremor and no asterixis Psychiatric: Orientation: alert and oriented x 3 Results & Data ([facility]) Vital Signs (Past 12 Hours) Vital Signs Temp Pulse Pulse Pulse Resp BP BP 06/04/20 12:10 36.7 C 70 131/55 L 06/04/20 11:40 74 119/38 L 06/04/20 11:20 67 98/40 L 06/04/20 11:00 68 92/38 L 02/19/21 10:40 72 100/48 L 06/04/20 10:31 71 103/47 L 06/04/20 10:24 72 78/38 L 06/04/20 10:00 72 87/36 L 06/04/20 09:40 67 107/48 L 06/04/20 09:20 65 140/54 L 06/04/20 09:05 36.5 C 99 H 06/04/20 08:06 36.0 C L 89 19 106/74 06/04/20 08:00 66 06/04/20 03:01 36.5 C 72 17 168/72 H Pulse Ox 06/04/20 12:10 06/04/20 11:40 06/04/20 11:20 06/04/20 11:00 06/04/20 10:40 06/04/20 10:31 06/04/20 10:24 06/04/20 10:00 06/04/20 09:40 06/04/20 09:20 06/04/20 09:05 06/04/20 08:06 97 06/04/20 08:00 06/04/20 03:01 94 Laboratory Results Laboratory Results - last 24 hr 06/04/20 06/04/20 09:07 09:07 WBC 4.87 RBC 3.91 L Hgb 10.5 L Hct 32.5 L MCV 83.1 MCH 26.9 MCHC 32.3 RDW Std Deviation 55.8 H RDW Coeff of Darci 18.2 H Plt Count 146 MPV 9.9 Sodium 132 L Potassium 4.5 Chloride 99 Carbon Dioxide 25 Anion Gap 8.0 BUN 65 H Creatinine 5.47 H* Est Cr Clr Drug Dosing 5.5 Est GFR ( Amer) 8.0 Est GFR (Non-Af Amer) 6.9 BUN/Creatinine Ratio 11.9 Glucose 149 H Calcium 8.7 PG Care Time/CCT Total # of Minutes Spent Total Time Spent with Patient: Total time spent is greater than 50% in coordination of care (as documented) at patient's floor/unit and/or counseling patient: Coding Level of Care Code 60555 Subseq Hosp Care Lvl 3 Diagnoses ESRD (end stage renal disease) on dialysis N18.6; Z99.2 Acute encephalopathy G93.40 Hypertensive emergency without congestive heart failure I16.1 Acute UTI N39.0 Anemia D64.9 Hx of liver transplant Z94.4
[2020-06-04] MEDS: CHOLECALCIFEROL 1,000 UNITS 25 MCG TAB PO SCH (21:10)
[2020-06-04] MEDS: FERROUS SULFATE 325 MG TAB PO SCH (23:35)
[2020-06-05] MEDS: MELATONIN 3 MG TAB PO PRN
[2020-06-05] MEDS: guaiFENesin SUGAR FREE 200 MG/10 ML UDC PO PRN
[2020-06-05] MEDS: traMADol HCL 50 MG TABLET PO PRN (03:42)
[2020-06-05] MEDS: DICLOFENAC SOD 1% GEL 100 GM TUBE EXT SCH (06:46)
[2020-06-05] MEDS: METOPROLOL TARTRATE 50 MG TAB PO SCH (07:59)
[2020-06-05] MEDS: LOSARTAN POTASSIUM 25 MG TAB PO SCH (08:00)
[2020-06-05] MEDS: HEPARIN SOD 5,000 UNIT/0.5 ML VIAL SQ SCH (08:00)
[2020-06-05] MEDS: CALCIUM 600MG + VIT D 400 IU TAB PO SCH (08:00)
[2020-06-05] MEDS: NEPHROCAPS PO SCH (08:00)
[2020-06-05] MEDS: ASCORBIC ACID 500 MG TAB PO SCH (08:00)
[2020-06-05] MEDS: cefTRIAXone SODIUM 1,000 MG in DEXTROSE 5% 50 ML IV SCH (08:49)
--- NOTE | 2020-06-05 08:56 | Hospitalist Progress Note ---
Date of Service June 05, 2020 Assessment & Plan (1) Acute encephalopathy: Was sent from dialysis center to the ER for confusion during HD Possible related to narcotic vs UTI vs hypertensive urgency Ct head showed no acute intracranial abnormality BP on admission was 227/90 on admission Clinically improved/ encephalopathy resolved (2) Hypertensive emergency without congestive heart failure: BP on admission was 227/90 on admission Home nebivolol switched to metoprolol 50 bid Hydralazine increased to 25mg BID while hospitalized Losartan started 25 mg daily case discussed with nephrology that recommended amlodipine if no improvement in BP Continue monitor BP BP much improved now BP also likely increased initially d/t pain Recommend to start losartan after DC, would not recommend to switch to metoprolo l from nabivolol after dc (3) Acute UTI: Urine cx grew Klebsiella pneum. continued IV Rocephin - finished Abx treatment Blood cx NGTD (4) Fx metacarpal: (5) Closed rib fracture: (6) Contusion of left foot: [place] [facility] [place], 2/2 to mechanical fall while at [facility] cast to RUE for 2-3 weeks, placed 2/12 incentive spirometry, lidocaine patch for rib fx Continue pain control with tramadol (7) Anemia: Mostly due to renal disease Hgb 10.5 Stable (8) ESRD (end stage renal disease) on dialysis: HD MWF Nephrology on board HD yesterday (06/04/20) (9) Hx of liver transplant: Hx of liver transplant x 2 for AIH, second transplant done for infection continue everolimus (10) DVT prophylaxis: SQ Heparin q12h Dispo: med/ tele, plan to DC home tmrw PCP: Dr. Stern FULL CODE Admission and Anticipated Discharge Date Admission Date: May 31, 2020 Subjective Pt was seen in follow up of encephalopathy, rib pain and elevated BP Had HD yesterday Currently in no distress Her blood pressure is now much better controlled, nephrology following Denies any fever, SOB. dizziness and palpitation Planned to [facility] but changed her mind and would like to be dc'ed home. Had a thorough discussion with the pt again about her risk of falling but pt prefers to be discharged home. She did better with therapy though and so hopefully she will be able to manage at home. Review of Systems Review of Systems: All systems reviewed & are unremarkable except as noted in HPI & below Constitutional: no fever and no chills Respiratory: no cough and no dyspnea Cardiovascular: no chest pain and no palpitations Gastrointestinal: no abdominal pain, no nausea and no vomiting Physical Exam Physical Exam: General- No acute distress Head- atraumatic Eyes- PERRL, EOMI, ENT- oropharynx clear Neck- supple, no JVD Lungs- clear to auscultation Heart- regular rhythm; no murmur Abdomen- normal bowel sounds, soft, nontender Extremities- no calf tenderness Neuro- alert, oriented x 3; PERRL, EOMI; no facial palsy; no dysarthria Skin- warm & dry Results & Data Results & Data ([facility]) Vital Signs (Past 12 Hours) Vital Signs Temp Pulse Pulse Resp BP Pulse Ox 06/05/20 07:13 36.9 C 73 16 117/60 98 06/05/20 01:04 94 H 06/04/20 23:34 36.8 C 84 18 124/55 L 95 Laboratory Results 06/04/20 06/04/20 Range/Units 09:07 09:07 WBC 4.87 (4.8-10.8) K/uL RBC 3.91 L (4.2-5.4) M/uL Hgb 10.5 L (12.0-16.0) g/dL Hct 32.5 L (37-47) % MCV 83.1 (80-100) fL MCH 26.9 (25-34) pg MCHC 32.3 (32-36) g/dL RDW Std Deviation 55.8 H (36.4-46.3) fL RDW Coeff of Darci 18.2 H (11.5-14.5) % Plt Count 146 (130-400) K/uL MPV 9.9 (7.4-10.4) fL Sodium 132 L (136-145) mmol/L Potassium 4.5 (3.5-5.1) mmol/L Chloride 99 (98-107) mmol/L Carbon Dioxide 25 (21-32) mmol/L Anion Gap 8.0 (3-11) BUN 65 H (7-18) mg/dl Creatinine 5.47 H* (0.6-1.2) mg/dl Est Cr Clr Drug Dosing 5.5 ml/min Est GFR ( Amer) 8.0 Est GFR (Non-Af Amer) 6.9 BUN/Creatinine Ratio 11.9 (10-20) Glucose 149 H (70-99) mg/dl Calcium 8.7 (8.5-10.1) mg/dl Medications Administered Current Inpatient Medications Acetaminophen (Acetaminophen 500 Mg Tab) 500 mg PO Q8H PRN PRN Reason: pain Stop: 06/30/20 18:12 Ascorbic Acid (Ascorbic Acid 500 Mg Tab) 1,000 mg PO DAILY DAGOBERTO Stop: 07/02/20 08:59 Last Admin: 06/05/20 08:00 Dose: 1,000 mg Documented by: Diclofenac Sodium (Diclofenac Sod 1% Gel 100 Gm Tube) 2 gm EXT Q8 DAGOBERTO Stop: 06/30/20 19:59 Last Admin: 06/05/20 06:46 Dose: Not Given Documented by: Everolimus (Everolimus 0.5 Mg Tablet) 2 ea PO BID [facility] Stop: 07/02/20 08:59 Last Admin: 06/04/20 21:10 Dose: Not Given Documented by: Ferrous Sulfate (Ferrous Sulfate 325 Mg Tab) 325 mg PO HS [facility] Stop: 06/30/20 20:59 Last Admin: 06/04/20 23:35 Dose: 325 mg Documented by: Guaifenesin (Guaifenesin Sugar Free 200 Mg/10 Ml Udc) 200 mg PO Q6H PRN PRN Reason: Cough Stop: 07/01/20 04:17 Last Admin: 06/05/20 00:00 Dose: 200 mg Documented by: Heparin Sodium (Porcine) (Heparin Sod 5,000 Unit/0.5 Ml Vial) 5,000 units SQ Q12 DAGOBERTO Stop: 06/30/20 20:59 Last Admin: 06/05/20 08:00 Dose: Not Given Documented by: Hydralazine HCl (Hydralazine Hcl 20 Mg/Ml Vial) 10 mg IV Q6H PRN PRN Reason: SBP above 170 Stop: 07/01/20 09:14 Last Admin: 06/04/20 00:04 Dose: 10 mg Documented by: Hydralazine HCl (Hydralazine Hcl 25 Mg Tab) 25 mg PO BID PRN PRN Reason: BP>160 Stop: 07/01/20 20:59 Ceftriaxone Sodium 1,000 mg/ (Dextrose) 50 mls @ 100 mls/hr IV Q24H [facility]; Protocol Stop: 06/11/20 08:59 Last Infusion: 06/04/20 09:04 Dose: Infused Documented by: Lidocaine (Lidocaine 5% 1 Patch) 1 patch TD HS [facility] Stop: 06/30/20 19:59 Last Admin: 06/04/20 21:09 Dose: 1 patch Documented by: Losartan Potassium (Losartan Potassium 25 Mg Tab) 25 mg PO QAM [facility] Stop: 07/02/20 09:14 Last Admin: 06/05/20 08:00 Dose: 25 mg Documented by: Melatonin (Melatonin 3 Mg Tab) 3 mg PO HS PRN PRN Reason: Sleep Stop: 07/01/20 22:51 Last Admin: 06/05/20 00:00 Dose: 3 mg Documented by: Menthol (Cough Drop (Sugar Free) Bebeto 24 Bebeto/1 Box) 1 bebeto BUCCAL Q1H PRN PRN Reason: Sore Throat Stop: 07/01/20 04:17 Last Admin: 06/01/20 04:34 Dose: 1 bebeto Documented by: Metoprolol Tartrate (Metoprolol Tartrate 50 Mg Tab) 50 mg PO BID [facility] Stop: 07/01/20 08:59 Last Admin: 06/05/20 07:59 Dose: 50 mg Documented by: Miscellaneous (Remove Lidoderm Patch) 1 ea N/A DAILY@0900 [facility] Stop: 07/01/20 07:59 Last Admin: 06/04/20 08:35 Dose: Not Given Documented by: Multivitamins/Minerals (Calcium 600mg + Vit D 400 Iu Tab) 1 tab PO BID [facility] Stop: 06/30/20 20:59 Last Admin: 06/05/20 08:00 Dose: 1 tab Documented by: Ondansetron HCl (Ondansetron Inj 2 Mg/Ml 2 Ml Vial) 4 mg IV Q6H PRN PRN Reason: Nausea Stop: 06/30/20 18:12 Polyethylene Glycol (Polyethylene (Miralax) 17 Gm Pack) 17 gm PO DAILY PRN PRN Reason: Constipation Stop: 06/30/20 18:12 Last Admin: 06/04/20 15:55 Dose: 17 gm Documented by: Tramadol HCl (Tramadol Hcl 50 Mg Tablet) 50 mg PO Q6H PRN PRN Reason: Pain Stop: 06/30/20 19:26 Last Admin: 06/05/20 03:42 Dose: 50 mg Documented by: Vitamin B Complex/Folic Acid (Nephrocaps) 1 cap PO DAILY DAGOBERTO Stop: 07/01/20 08:59 Last Admin: 06/05/20 08:00 Dose: 1 cap Documented by: Vitamin D (Cholecalciferol 1,000 Units 25 Mcg Tab) 2,000 units PO HS [facility]AGOBERTO Stop: 06/30/20 20:59 Last Admin: 06/04/20 21:10 Dose: 2,000 units Documented by: (1) Closed rib fracture Encounter type: initial encounter Laterality: right Rib fracture type: single rib Qualified Code(s): S22.31XA - Fracture of one rib, right side, initial encounter for closed fracture (2) Fx metacarpal Encounter type: initial encounter Fracture alignment: nondisplaced Fracture type: closed Laterality: right Metacarpal bone: fourth Metacarpal location: base Qualified Code(s): S62.344A - Nondisplaced fracture of base of fourth metacarpal bone, right hand, initial encounter for closed fracture
[2020-06-05] MEDS: EVEROLIMUS 0.5 MG TABLET PO SCH (09:33)
--- NOTE | 2020-06-05 10:20 | Nephrology Progress Note ---
Date of Service June 05, 2020 Assessment & Plan (1) ESRD (end stage renal disease) on dialysis: * Volume status and electrolyte balance are acceptable. No acute indication for HD today * Medications appropriate for kidney function. * Renal diet. Daily renal MVI. * Resume outpatient HD schedule at [facility] post discharge. I have notified the unit to resume outpatient treatments on Sunday (2) Acute encephalopathy: * Several potential causes including UTI, hypertensive urgency, Ambien. Ms. Li is now clinically improved (3) Hypertensive emergency without congestive heart failure: * Nebivolol switched to metoprolol during hospitalization * Hydralazine increased to 25 mg twice daily * Losartan 25 mg added to medical regimen (4) Acute UTI: * Current treatment includes ceftriaxone (5) Anemia: * Chronic, stable * Hgb >10. 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 Li was seen & examined in her hospital room this morning. She is subjectively improved and anxious to return home. Her last HD was yesterday. There were no complications. AVF functioned well. 1.2 L UF obtained. Review of Systems Constitutional: no fever Eyes: no problem reported Ear, Nose, Mouth, Throat: no problem reported Respiratory: no dyspnea Cardiovascular: no chest pain, no palpitations and no edema Gastrointestinal: no abdominal pain Musculoskeletal: no back pain Integumentary: no rash Neurologic: no confusion Physical Exam Constitutional: no acute distress Eyes: no scleral abnormality and no corneal abnormality ENMT: Mouth: no oral mucosal abnormality Neck: normal visual inspection and trachea midline Respiratory: normal respiratory effort Auscultation: lungs clear to auscultation bilaterally Cardiovascular: Rate/Rhythm: regular rate Heart Sounds: normal S1 and normal S2 Extremities: + AV fistula (+ bruit); no edema Musculoskeletal: Extremities: no cyanosis and no clubbing Psychiatric: Orientation: alert and oriented x 3 Results & Data ([facility]) Vital Signs (Past 12 Hours) Vital Signs Temp Pulse Pulse Resp BP Pulse Ox 06/05/20 07:13 36.9 C 73 16 117/60 98 06/05/20 01:04 94 H 06/04/20 23:34 36.8 C 84 18 124/55 L 95 Laboratory Tests 06/04/20 06/04/20 09:07 09:07 WBC 4.87 Hgb 10.5 L Hct 32.5 L Plt Count 146 Sodium 132 L Potassium 4.5 Chloride 99 BUN 65 H Creatinine 5.47 H* Glucose 149 H PG Care Time/CCT Total # of Minutes Spent Total Time Spent with Patient: Total time spent is greater than 50% in coordination of care (as documented) at patient's floor/unit and/or counseling patient: Coding Level of Care Code 53388 Subseq Hosp Care Lvl 3 Diagnoses ESRD (end stage renal disease) on dialysis N18.6; Z99.2 Acute encephalopathy G93.40 Hypertensive emergency without congestive heart failure I16.1 Acute UTI N39.0 Anemia D64.9 Hx of liver transplant Z94.4
--- NOTE | 2020-06-05 12:35 | Discharge Summary ---
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 She lives at home in in-law suite with her daughter Jacek. Most of history obtained from daughter. She was last known well prior to going to dialysis. She spoke to her mother as well last saw her prior to dialysis and felt like she was in her usual state of health. She does elicit yesterday she complained of not feeling well and had emesis x1. Of significance patient had her first dose of Covid vaccine 1 week ago and while obtaining the vaccine tripped and fell. She was seen in ED that same day and diagnosed with right fourth metacarpal fracture, left foot contusion and right lateral 10th rib fracture. She was seen and evaluated by orthopedics on 05/28 and placed in a right hand cast for 3 to 4 weeks in a postop shoe to left foot. She was prescribed oxycodone and daughter is unsure how many of these she had may have taken. Patient does manage her own medications. According to ER provider during his evaluation assessment patient was only speaking Ma[place] and he was unable to elicit history. Patient does typically speak Yoruba per daughter. She did receive a total of 20 mg of IV hydralazine while in ED. During my evaluation she was able to answer questions although only alert and oriented to self. She complained of bilateral lower extremity pain and sore throat. She also persisted on standing up. She denies any recent illness, fever, chills, sweats, lightheadedness, dizziness, chest pain, shortness breath, cough, nausea, vomiting, hematemesis, melena or hematochezia. She does make minimal amounts of urine. She was straight catheterized and UA suspicious for UTI. She was started on IV antibiotics in ED. Per ED provider she did receive full treatment of HD today. Admission Exam Per Admitting Provider Constitutional: Petite, elderly, female, alert and answers questions and follows commands, vitals as above, NAD, sitting up in bed, Head: Normocephalic, Atraumatic Eyes: PERRL, conjunctivae normal, anicteric sclerae ENMT: external ear and nose normal, oropharynx normal Neck: trachea midline, no thyromegaly normal visual inspection Respiratory: normal respiratory effort, lungs clear to auscultation, no wheeze, rales, rhonchi. Normal insp/exp effort, no accessory muscle use Cardiovascular: RRR, 2/6 holosystolic precordial murmur best LUSB, no edema Vessels: no JVD or carotid bruit , left upper extremity AV fistula bruit present Chest: normal inspection of chest Abdomen: normal bowel sounds, soft, nontender, no hepatosplenomegaly Musculoskeletal: no cyanosis or clubbing, extremities motor strength 5/5, right upper extremity cast in place, left postop shoe in place, bilateral pedal pulse +2 Skin: no rashes, warm and dry normal turgor Neurologic: PERRL, EOMI, accommodation nl, no face palsy, no dysarthria CN's II-XI intact bilaterally and moves all extremities Psychiatric: A+O to self, and knew her daughter name, unaware of date/place, euthymic affect Lymphatic: no cervical or axillary lymphadenopathy : deferred Principal Diagnosis Acute encephalopathy possibly secondary to UTI, hypertensive urgency, narcotics End-stage renal disease on dialysis Ambulatory dysfunction Rib fracture, contusion foot,wrist fx Discharge Exam General- No acute distress Head- atraumatic Eyes- PERRL, EOMI, ENT- oropharynx clear Neck- supple, no JVD Lungs- clear to auscultation Heart- regular rhythm; no murmur Abdomen- normal bowel sounds, soft, nontender Extremities- no calf tenderness Neuro- alert, oriented x 3; PERRL, EOMI; no facial palsy; no dysarthria Skin- warm & dry Discharge Data Allergies Allergy/AdvReac Type Severity Reaction Status Date / Time No Known Allergies Allergy Verified 05/28/20 10:37 Consultations 05/31/20 15:38 ED Decision to Admit Stat 05/31/20 15:43 Consult Nephrology Routine 05/31/20 18:13 Consult Case Management - Discharge Planning Routine Ordered Studies 05/31/20 13:32 CT head/brain wo con Stat FINDINGS: No intra or extra-axial mass lesions are visualized. There is no CT evidence of acute cortical infarction. There is no evidence of midline shift. There is no acute hemorrhage. No calvarial fractures are visualized. There are patchy white matter hypodensities likely on a small vessel basis. There is no evidence of pathologic ventricular dilatation. There is a stable small sphenoid sinus air-fluid level. IMPRESSION: No acute intracranial findings Hospital Course (1) Acute encephalopathy: Was sent from dialysis center to the ER for confusion during HD Possible related to narcotic vs UTI vs hypertensive urgency Ct head showed no acute intracranial abnormality BP on admission was 227/90 on admission Clinically improved/ encephalopathy resolved (2) Hypertensive emergency without congestive heart failure: BP on admission was 227/90 on admission Home nebivolol switched to metoprolol 50 bid Hydralazine increased to 25mg BID while hospitalized Losartan started 25 mg daily case discussed with nephrology that recommended amlodipine if no improvement in BP Continue monitor BP BP much improved now BP also likely increased initially d/t pain Recommend to start losartan after DC, would not recommend to switch to metoprolol from nabivolol after dc (3) Acute UTI: Urine cx grew Klebsiella pneum. continued IV Rocephin - finished Abx treatment Blood cx NGTD (4) Fx metacarpal: (5) Closed rib fracture: (6) Contusion of left foot: [place] [facility] [place] 2[place]2 to mechanical fall while at [facility] vaccine [facility] cast to RUE for 2-3 weeks, placed 2/12 incentive spirometry, lidocaine patch for rib fx Continue pain control with tramadol (7) Anemia: Mostly due to renal disease Hgb 10.5 Stable (8) ESRD (end stage renal disease) on dialysis: HD MWF Nephrology on board HD yesterday (06/04/20) (9) Hx of liver transplant: Hx of liver transplant x 2 for AIH, second transplant done for infection continue everolimus (10) DVT prophylaxis: SQ Heparin q12h PCP: Dr. Stern Total Time Total Time Spent Total Time Spent (In Minutes): 37 Total Time Includes: Examination of the Patient, Discharge Planning, Medication Reconciliation and Communication With Other Providers Discharge Plan Discharge Items Patient Disposition: Home - Home Health Services Reason For Visit: ALTERED MENTAL STATUS, HTN URGENCY Discharge Diagnosis: Acute encephalopathy possibly secondary to UTI, hypertensive urgency, narcotics End-stage renal disease on dialysis Ambulatory dysfunction Rib fracture, contusion foot,wrist fx Activity: Per Instructions section Non-emergency contact: Primary Care Provider Call non-emergency contact if: you have any medication questions and your symptoms worsen Follow-up/Referrals: Lucius Stern MD [Primary Care Provider] - (Date & Time 06/08/2020 10:20 AM Provider Vero Gimenez MD [facility] ) Diet: Dialysis Renal Addtl Attending Provider Instructions: Follow-up with your primary care doctor, your appointment is scheduled for you for June 08. Start taking new medication, losartan, as prescribed. Use lidocaine patch to help with rib fracture pain. Use incentive spirometry. Check your blood pressure at home, and write down those numbers. Bring the log to your appointments with healthcare providers so they can check on your blood pressure readings at home. Your blood pressure medications may need further adjustment. Pending Studies at Discharge: No Stand-Alone Forms: My [employer], Smoking Cessation Medications and DC Order Prescriptions: New losartan 25 mg Tablet 25 mg PO QAM Qty: 30 RF: 0 lidocaine 5 % Adhesive Patch,Medicated 1 patch transdermal HS Qty: 15 RF: 0 melatonin 3 mg Tablet 3 mg PO HS PRN (Reason: sleep) Qty: 30 RF: 0 Continued ferrous sulfate 325 mg (65 mg iron) Tablet 325 mg PO HS RF: 0 calcium carbonate-vitamin D3 [Calcium 500 + D] 500 mg(1,250mg) -200 unit Tablet 1 tab PO BID RF: 0 nebivolol 10 mg tablet 10 mg PO QAM RF: 0 cholecalciferol (vitamin D3) [Vitamin D3] 2,000 unit Tablet 2,000 unit PO HS RF: 0 everolimus (immunosuppressive) 0.5 mg tablet 1 mg PO BID RF: 0 zolpidem 5 mg Tablet 5 mg PO HS PRN (Reason: sleep) Qty: 10 RF: 0 acetaminophen 650 mg Tablet 650 mg PO Q6H PRN (Reason: Pain) RF: 0 Triphrocaps 1 mg capsule 1 cap PO DAILY RF: 0 hydralazine 10 mg tablet 10 mg PO BID RF: 0 ascorbic acid (vitamin C) 1,000 mg Tablet 1 g PO DAILY RF: 0 Mucinex DM 30-600 mg Tablet Extended Release 12 Hr 1 tab PO Q12H RF: 0 Nephro Carb Steady 8 oz PO UD RF: 0 loperamide 2 mg Tablet 4 mg PO UD PRN (Reason: Diarrhea) RF: 0 oxycodone 5 mg tablet 5 mg PO Q6H PRN (Reason: Pain) RF: 0 Discharge Orders: Discharge Order (Routine); Ordered 06/05/20 Ordered By: Darius Werner Admission Data Admit Date/Time: 05/31/20 15:43 Attending Provider: Darius Werner Admit Provider: Perla Hood Primary Care Provider: Lucius Stern Other Providers: [facility] ; [facility] ; ePrla Hood ; Isai Chris
== END 2020-06-05 14:47 | disposition home health service (06) | DRG 304 ==
LOC: ED 13:16 → 2S 15:43 → SUATTDRO 15:43 → 2S 17:35 → 2W 06-03 17:46